=== PATIENT | male | born 1970 | race Two or more races ===

== ENCOUNTER 2020-06-18 15:35 | Inpatient (IN) | payer MEDICAID ==
[~2020-06-18] VITALS: Ht 162.6 cm; Wt 61.2 kg
[2020-06-18] VITALS (8 sets, daily range): BP systolic 98–143; BP diastolic 67–74
--- NOTE | 2020-06-18 16:00 | NUR ---
ED Nurse Note: Patient was wheeled from waiting room due to severe resp disstress. Patient presented with resp rate 54, O2 sat 25, HR 143, diaphoretic. Patient was placed on 15L via NRB mask O2 sat went up to 75%. Patient was connected to monitor, ER MD at bed side
--- NOTE | 2020-06-18 16:05 | NUR ---
ED Nurse Note: Corina BOSS RN started IV line on right AC 20ga, blood collected sent to lab.
--- NOTE | 2020-06-18 16:06 | NUR ---
ED Nurse Note: Patient was placed at prone position, still desatting.
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
[2020-06-18] MEDS ORDERED: Azithromycin 500 MG in NS 275 ML IVPB ONE (16:30)
[2020-06-18] MEDS ORDERED: cefTRIAXone 1 GM in NS 55 ML IV ONE (16:30)
[2020-06-18] MEDS ORDERED: Acetaminophen 500mg (ES) tab ORAL ONE (16:30)
--- NOTE | 2020-06-18 16:30 | NUR ---
ED Nurse Note: secomd IV line was established on left AC 18 ga
[2020-06-18 16:49] LABS: HEMATOCRIT 41.9 % (42.0-52.0); HEMOGLOBIN 14.9 G/DL (14.2-18.0); MEAN CORPUSCULAR VOLUME 87 FL (80-99); PLATELET COUNT 217 K/UL (150-450); RED BLOOD COUNT 4.83 M/UL (4.70-6.10); RED CELL DISTRIBUTION WIDTH 13.7 % (11.6-14.8); WHITE BLOOD COUNT 12.5 K/UL (4.8-10.8)
--- NOTE | 2020-06-18 16:55 | NUR ---
ED Nurse Note: Patient was placed on BIPAP.
[2020-06-18 17:07] LABS: INR 1.2 (0.9-1.1); PARTIAL THROMBOPLASTIN TIME 28 SEC (23-33)
--- NOTE | 2020-06-18 17:13 | Diagnostic Imaging Report ---
Indication: Dyspnea Technique: One view of the chest Comparison: none Findings: There is generalized bilateral interstitial and hazy airspace opacity. There is more dense consolidation in the right upper lobe. The heart size is borderline enlarged. The pleural spaces are clear. Impression: Bilateral interstitial and hazy airspace opacities, with right upper lobe denser consolidation. Findings may represent bilateral pulmonary edema versus bilateral infiltrates. Correlate with clinical findings
[2020-06-18 17:14] LABS: ANION GAP 22 mmol/L (5-15); BLOOD UREA NITROGEN 15 mg/dL (7-18); CALCIUM 8.4 MG/DL (8.5-10.1); CARBON DIOXIDE 18 MMOL/L (21-32); CHLORIDE 93 MMOL/L (98-107); CREATININE 1.6 MG/DL (0.55-1.30); SODIUM 133 MMOL/L (136-145)
[2020-06-18 17:32] LABS: ALANINE AMINOTRANSFERASE 68 U/L (12-78); ALBUMIN 2.5 G/DL (3.4-5.0); ALBUMIN/GLOBULIN RATIO 0.4 (1.0-2.7); ALKALINE PHOSPHATASE 113 U/L (46-116); ASPARTATE AMINO TRANSFERASE 57 U/L (15-37); BILIRUBIN,TOTAL 0.5 MG/DL (0.2-1.0); CREATINE KINASE 225 U/L (26-308); LACTATE DEHYDROGENASE 983 U/L (81-234)
[2020-06-18 17:36] LABS: FERRITIN 2037 NG/ML (8-388)
[2020-06-18] MEDS ORDERED: Heparin 5000 units/ml inj IV ONE (18:30)
[2020-06-18] MEDS ORDERED: Heparin 25,000u/D5W 500ml 500 ML IV SCH (18:30)
[2020-06-18] MEDS ORDERED: Omnipaque 350 100ml vial INJ PRN (18:30)
--- NOTE | 2020-06-18 19:17 | NUR ---
HAND-OFF: Report given to TIMOTHY Mcleod.
--- NOTE | 2020-06-18 19:20 | NUR ---
ED Nurse Note: Report received from TIMOTHY Berry. Patient taken to CT with lora sheriff RT and RN monitoring patient. CT was completed without complication. Patient is tachypneic with extensive accessory muscle use. He is awake and alert and able to respond to questions. He remains on bipap. MD aware of respiratory status
--- NOTE | 2020-06-18 19:45 | Diagnostic Imaging Report ---
EXAM: CT Angiography Chest With Intravenous Contrast CLINICAL HISTORY: PE TECHNIQUE: Axial computed tomographic angiography images of the chest with intravenous contrast. CTDI is 36.4 mGy and DLP is 253.0 mGy-cm. One or more of the following dose reduction techniques were used: automated exposure control, adjustment of the mA and/or kV according to patient size, use of iterative reconstruction technique. MIP reconstructed images were created and reviewed. COMPARISON: 06/18/2020 FINDINGS: Pulmonary arteries: Small filling defect in the subsegmental branch of the right lower lobe. Aorta: No thoracic aortic aneurysm. Lungs: Extensive multifocal groundglass opacities throughout the lungs. Pleural space: No pneumothorax. No effusion. Heart: Mild cardiomegaly. No pericardial effusion. Bones/joints: No acute fracture or dislocation. Soft tissues: Unremarkable. Lymph nodes: Prominent mediastinal and hilar lymph nodes, likely reactive. IMPRESSION: 1. Multifocal groundglass opacities consistent with COVID. 2. Small pulmonary embolism in the subsegmental branch of the right lower lobe. 3. Right heart enlargement and flattening of the interventricular septum. Cannot exclude right heart strain or baseline right heart failure. <MYCVCSECTION> Communications: 06/18/20 19:46 Call Doctor Regarding Above results, called DR AVINA on 06/18 19:46 (-08:00)
[2020-06-18] MEDS ORDERED: Aspirin Baby 81mg ORAL STA (20:26)
--- NOTE | 2020-06-18 20:30 | NUR ---
ED Nurse Note: Patient is in bed, no change in condition. No pain noted. HR remains tachy and breathing rate is elevated. ERMD aware.
--- NOTE | 2020-06-18 21:00 | NUR ---
ED Nurse Note: Report given to TIMOTHY Martinez. Patient is awake and alert, verbally responsive. Patient is aware of transfer to ICU. Vital signs documented in spreadsheet.
--- NOTE | 2020-06-18 21:12 | NUR ---
NURSE NOTES: Pt transported from ED to ICU via gurney without incident. Belongings verified at bedside, including $87 chavez in which the pt refuses to have placed in the safe at this time. Received patient and report from TIMOTHY Mcleod. Patient is observed resting in bed and remains alert and oriented x4. Pt denies pain at this time. Pt is currently on Bipap, settings 15/5 FiO2 80% with an O2 saturation of 90% at this time. Pt remains tachypneic with a RR of 34-40 noted and SOB with accessory muscle use. Bilateral lower lobe breath sounds noted to be diminished upon auscultation R side more diminished than L, with rhonchi noted in bilateral upper lobes. Pt noted to be ST on tele monitor with a HR of 122, BP remains stable at this time. L AC 18g and R AC 20g IV Catheters noted which remain asymptomatic, intact and patent. Heparin is currently infusing at 18 u/kg/hr as ordered. No s/sx of active bleeding noted at this time. Active bowel sounds noted in all four quadrants; abdomen remains round, soft and nontender. Pt medical history and diagnostics reviewed at bedside. Skin remains intact. Fall, Aspiration and Skin precautions observed. Pt repositioned for comfort and safety. Pt remains resting in bed; Bed remains in the lowest position with the safety wheels engaged, call light within reach, side rails up x3 and bed alarm activated. Will call primary physician for admission orders. Will continue to monitor.
--- NOTE | 2020-06-18 21:25 | NUR ---
ED Nurse Note: Endorsed to PROCESS CONSULTANT that patient has not urinated yet and urine sample will need to be sent to lab.
--- NOTE | 2020-06-18 21:25 | NUR ---
ED Nurse Note: Patient taken to ICU unit at this time as ordered by MD. Patient is awake and alert, verbally responsive and remains on bipap. He remains tachypneic, see vitals flow sheet. Patient taken to unit via gurney by RN and RT. Patient took all belongings with him to the floor. Heparin infusing as ordered at time of transfer. IVs are intact. Patient transferred to ICU bed without complication and continuinity of care handed off to CASE MANAGEMENT SPECIALIST.
--- NOTE | 2020-06-18 21:33 | NUR ---
NURSE NOTES: Consulted with Dr Reyes regarding current pt condition and plan of care. Admission orders obtained including continue Heparin gtt from ED. Will carry out orders and continue to monitor.
--- NOTE | 2020-06-18 21:43 | NUR ---
NURSE NOTES: Called pharmacy and spoke with Chrystal regarding heparin drip. Upon weighing pt on bed scale a weight discrepancy was noted. Per Chrystal continue with current rate and adjust after next ptt. Will continue to infuse Heparin at current rate. Timed ptt already scheduled per order.
[2020-06-18] MEDS: Heparin 25,000u/D5W 500ml 500 ML IV SCH (22:26)
--- NOTE | 2020-06-18 23:00 | NUR ---
NURSE NOTES: Bedside physical assessment performed. Pt appears to continue to Bipap settings, pt remains SOB and tachypneic. HR and BP remains stable. Physical status remains consistent with previous assessment. Heparin continue to infuse without incident with no s/sx of active bleeding noted. Pt noted to have difficulty tolerating oral liquids. Pt noted to immediately desaturate to 81% with pause of Bipap use for oral medication administration. Fall, Aspiration and Skin precautions observed. Pt remains resting in bed; Bed remains in the lowest position with the safety wheels engaged, call light within reach, side rails up x3 and bed alarm activated. Will continue plan of care. Will continue to monitor.
[2020-06-19] VITALS (24 sets, daily range): BP systolic 95–137; BP diastolic 68–93
--- NOTE | 2020-06-19 01:00 | NUR ---
NURSE NOTES: Timed ptt drawn and submitted to the laboratory for analysis. Will await results and titrate Heparin according to order. Bedside physical assessment performed. Pt appears to continue to Bipap settings, pt remains SOB, but a decrease in accessory muscle use noted. HR and BP remains stable. Physical status remains consistent with previous assessment. Heparin continue to infuse without incident with no s/sx of active bleeding noted. Fall, Aspiration and Skin precautions observed. Pt remains resting in bed; Bed remains in the lowest position with the safety wheels engaged, call light within reach, side rails up x3 and bed alarm activated. Will continue plan of care. Will continue to monitor.
--- NOTE | 2020-06-19 03:00 | NUR ---
NURSE NOTES: ptt noted to he therapeutic, Herparin to continue to infuse at the same rate per order. Scheduled timed ptt per protocol for following morning. Pt noted to be sleeping at this time. Bedside physical assessment performed. Pt appears to continue to Bipap settings, pt remains SOB, but a decrease in accessory muscle use noted. HR and BP remains stable. Physical status remains consistent with previous assessment. Heparin continue to infuse without incident with no s/sx of active bleeding noted. Fall, Aspiration and Skin precautions observed. Pt remains resting in bed; Bed remains in the lowest position with the safety wheels engaged, call light within reach, side rails up x3 and bed alarm activated. Will continue plan of care. Will continue to monitor.
--- NOTE | 2020-06-19 05:00 | NUR ---
NURSE NOTES: Pt noted to be sleeping at this time. Bedside physical assessment performed. Pt noted to desaturated in to mid to low 80s and therefore FiO2 titrated to 90% in order to decrease overall WOB. Pt now noted to be tolerating Bipap settings better and is visibly more comfortably. HR and BP remains stable. Physical status otherwise remains consistent with previous assessment. Heparin continue to infuse without incident with no s/sx of active bleeding noted. Fall, Aspiration and Skin precautions observed. Pt remains resting in bed; Bed remains in the lowest position with the safety wheels engaged, call light within reach, side rails up x3 and bed alarm activated. Will continue plan of care. Will continue to monitor.
[2020-06-19 06:10] LABS: HEMATOCRIT 36.9 % (42.0-52.0); HEMOGLOBIN 12.8 G/DL (14.2-18.0); MEAN CORPUSCULAR VOLUME 90 FL (80-99); PLATELET COUNT 153 K/UL (150-450); RED BLOOD COUNT 4.09 M/UL (4.70-6.10); RED CELL DISTRIBUTION WIDTH 12.3 % (11.6-14.8); WHITE BLOOD COUNT 8.1 K/UL (4.8-10.8)
[2020-06-19 06:23] LABS: ALANINE AMINOTRANSFERASE 55 U/L (12-78); ALBUMIN 1.9 G/DL (3.4-5.0); ALBUMIN/GLOBULIN RATIO 0.4 (1.0-2.7); ALKALINE PHOSPHATASE 86 U/L (46-116); ANION GAP 6 mmol/L (5-15); ASPARTATE AMINO TRANSFERASE 48 U/L (15-37); BILIRUBIN,TOTAL 0.4 MG/DL (0.2-1.0); BLOOD UREA NITROGEN 14 mg/dL (7-18); CALCIUM 7.5 MG/DL (8.5-10.1); CARBON DIOXIDE 25 MMOL/L (21-32); CHLORIDE 107 MMOL/L (98-107); CREATININE 0.7 MG/DL (0.55-1.30); POTASSIUM 3.7 MMOL/L (3.5-5.1); SODIUM 138 MMOL/L (136-145)
--- NOTE | 2020-06-19 07:02 | NUR ---
NURSE HAND-OFF REPORT: Latest Vital Signs: Temperature 98.8 , Pulse 90 , B/P 114 /77 , Respiratory Rate 34 , O2 SAT 97 , Bi-pap, O2 Flow Rate . Vital Sign Comment: EKG Rhythm: Sinus Rhythm Rhythm change?: N MD Notified?: - MD Response: Latest Mcdowell Fall Score: 35 Fall Risk: Medium Risk Safety Measures: Call light Within Reach, Bed Alarm Zone 2, Side Rails Side Rails x2, Bed position Low and Locked. Fall Precautions: Door Sign Patient Fall Education Report given to TIMOTHY Broussard.
--- NOTE | 2020-06-19 08:00 | NUR ---
NURSE NOTES: Pt was assessed after receiving change of shift report from Janusz AGUIRRE. Pt is awake, alert, oriented x4, bilingual Yakut speaking. Currently on Bipap 15/5 FIO2 90%, O2Sat 98%. Bilateral rales on auscultation. Intermittent cough present. Denies any pain/chest discomfort when asked. 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 HR 90 with bounding peripheral pulses. Temp 99F axillary, extremities warm to touch. Pt is maintained on Heparin drip current rate 18units/kg/hour per protocol, last PTT 85, next PTT to be drawn tomorrow AM per protocol/pharmacy. Peripheral IV access is present on Left AC#18G and Right AC#20G, both patent/intact. Uses urinal at bedside, output of dark logan/mildly cloudy urine. Abdomen is round, soft, nontender to touch with hypoactive bowel sounds. HOB at high olivo's, bed locked, in lowest position, three side rails up and call light is placed within easy reach. Will continue to monitor pt and follow plan of care per MD orders and protocol.
[2020-06-19] MEDS: dexAMETHasone 10mg/ml Inj IV SCH (09:15)
--- NOTE | 2020-06-19 10:00 | NUR ---
NURSE NOTES: Urine specimen was collected 0940 and sent to lab per order. Pt was repositioned for comfort. Remains on Heparin drip at 18units/kg/hour. No signs of bleeding noted. Remains on Bipap 15/5, 90% FIO2, with O2Sat 98%. Pt denies any chest discomfort. Head of bed at high fowlers.
[2020-06-19 11:05] LABS: APPEARANCE,URINE CLEAR; BILIRUBIN, URINE NEGATIVE (NEGATIVE); GLUCOSE, URINE (UA) 1+ (NEGATIVE); KETONES,URINE 1+ (NEGATIVE); LEUKOCYTE ESTERASE ,URINE 1+ (NEGATIVE); NITRITE,URINE NEGATIVE (NEGATIVE); PH,URINE 6.5 (4.5-8.0); PROTEIN,URINE 3+ (NEGATIVE); UROBILINOGEN,URINE 4 MG/DL (0.0-1.0)
[2020-06-19 11:10] LABS: COLOR,URINE YELLOW
--- NOTE | 2020-06-19 11:58 | NUR ---
NURSE NOTES: Pt's contacted the nurse's station to inquire about update on current status. Pt remains with stable VS, while maintained on Bipap 15/5, FIO2 90%, O2Sat at 98%. No signs of bleeding noted while pt remains on Heparin drip at 18unit/kg/hour.
--- NOTE | 2020-06-19 13:00 | NUR ---
NURSE NOTES: Dr Reyes is at the nurse's station. Updated on pt's current status and reported AM ABG results. Order noted for repeat ABGs, BMP/CBC for tomorrow AM, and Protonix added for GI prophylaxis. Per MD, plan to start pt on Remdesivir. MD notified regarding pt desaturating when Bipap is off face even for a brief moment. Per MD, okay to hold PO diet for a few days while pt is maintained on Bipap. Addendum: 06/19/20 at 1517 by EFRAIN EASTMAN RN MD also notified of Troponin trending up. No additional orders at this time.
--- NOTE | 2020-06-19 14:15 | History and Physical Report ---
DATE OF ADMISSION: 06/18/2020 HISTORY OF PRESENT ILLNESS: This is a 49-year-old male who was admitted to the hospital overnight with shortness of breath. He was confirmed and found to have COVID-19 pneumonia. The patient states he has multiple family members who are also unwell. His symptoms began approximately five days ago. Overnight, the patient has been on a BiPAP. He has been worked up. He has been confirmed to have COVID-19 pneumonia based on microbiological testing with a rapid COVID-19 antigen positivity and a chest x-ray which has shown bilateral confluent infiltrates suspicious for pneumonic process. The patient also underwent a CT pulmonary angiogram, which showed a small pulmonary embolism in the segmental branch of the right lower lobe and multifocal opacities. PAST MEDICAL HISTORY: The patient denies any previous medical history or tobacco usage. PREVIOUS SURGERIES: None. 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 He was born in [place]. REVIEW OF SYSTEMS: Denies any headaches, hematemesis, melena, hematochezia, night sweats, or weight loss. PHYSICAL EXAMINATION: VITAL SIGNS: Blood pressure is 120/70, heart rate is 84, respirations are 20. O2 saturation 97% on BiPAP 18/5, 90% FiO2. GENERAL: Reveals a 49-year-old male. At this time, he is on a BiPAP. HEENT: Otherwise unremarkable. CHEST: Shows bilateral rhonchi. ABDOMEN: Soft. EXTREMITIES: There is no edema. LABORATORY DATA: His laboratory testing shows normal CBC with a hemoglobin of 12.8. Chemistry is notable for glucose 138. Lactic acid 13, now 3.4. AST 48. Troponin 1.3, followed by 1.4. Coags show high D-dimer of 125. Urinalysis negative. IMPRESSION: 1. COVID-19 pneumonia. 2. Respiratory failure. 3. Pulmonary embolism. 4. Troponin leak. DISCUSSION: We will admit to the hospital, start Decadron, start heparin infusion, broad-spectrum antibiotics. We will consult ID for possible remdesivir usage. He may need to be intubated. We will maintain a BiPAP for now. His ABGs have actually shown improvement with pH now being 7.50, pCO2 29, and pO2 63 on BiPAP discussed above. Gurdeep Reyes M.D. DR: CORBY JOB#: [id number] CC:
--- NOTE | 2020-06-19 14:40 | NUR ---
NURSE NOTES: New Heparin bag was removed from the pyxis to replace current bag that is now empty. Contacted pharmacy and notified Andrey/pharmacist, awaiting for new label from pharmacy to be scanned. In the meantime, new bag has been started at 1440 and is infusing at same rate. No signs of bleeding noted. VS remain stable. Pt denies any chest discomfort, maintained on Bipap 15/5, FIO2 90%, O2Sat at 98%.
--- NOTE | 2020-06-19 15:15 | Consultation ---
DATE OF CONSULTATION: 06/19/2020 INFECTIOUS DISEASE CONSULTATION CONSULTING PHYSICIAN: Arturo Dudley MD. PRIMARY ATTENDING PHYSICIAN: Gurdeep Reyes MD. REASON FOR CONSULTATION: COVID-19 disease and sepsis. HISTORY OF PRESENT ILLNESS: The patient is a 49-year-old male admitted yesterday from home complaining of shortness of breath. The patient feeling sick since four days before admission. In the ER, he was tachypneic with respiratory rate of 34 that subsequently increased to 46, was tachycardic with heart rate of 143, had leukocytosis of 12.5, admitted to ICU and started on BiPAP. PAST MEDICAL HISTORY: Insignificant. ALLERGIES: No known drug allergies. MEDICATIONS: Getting ceftriaxone azithromycin, dexamethasone, Zofran, heparin IV. SOCIAL HISTORY: . No history of smoking. REVIEW OF SYSTEMS: Limited. PHYSICAL EXAMINATION: VITAL SIGNS: Temperature is 99, current pulse is 98, respiratory rate is 35. HEAD AND NECK: Gabbs conjunctivae. HEART: Normal rate. LUNGS: On BiPAP ABDOMEN: Soft. EXTREMITIES: No edema. LABORATORY AND DIAGNOSTIC DATA: WBC today is 8.1, hemoglobin 12.8, hematocrit 36.9, and platelets 153,000. Sodium 138, potassium 3.7, chloride 107, bicarb 25, BUN 14, creatinine 0.7. Glucose 138. Lactic acid was 13.2 at the time of admission, subsequently decreased to 3.4. Troponin is elevated, peak level is 1.466. Blood gas showed pH of 7.507, pCO2 of 29.7, pO2 of 63.5, O2 saturation 92.9. CT angiogram of chest showed multifocal ground-glass opacities consistent with COVID. A small pulmonary emboli in the subsegmental branch of right lower lobe, right heart enlargement and flattening of the intraventricular septum. Cannot exclude right heart strain or baseline right heart failure. IMPRESSION: 1. Sepsis with tachycardia, tachypnea and leukocytosis. 2. COVID-19 pneumonia. 3. Pulmonary emboli. 4. Hypoxic respiratory failure, acidosis. 5. Elevated troponin. RECOMMENDATION: We will continue dexamethasone, ceftriaxone, and Zithromax. We will add remdesivir. We will follow up the cultures. At the end of my exam, I thank Dr. Reyes for involving me in the care of this patient. Arturo Dudley M.D. DR: ROSIE JOB#: [id number] CC:
[2020-06-19] MEDS ORDERED: Loading Dose:Remdesivir 200mg/NS 210ml IV SCH ×2 (16:00)
[2020-06-19] MEDS: Azithromycin 500 MG in D5W 275 ML IV SCH (16:45)
[2020-06-19] MEDS: Heparin 25,000u/D5W 500ml 500 ML IV SCH (16:46)
--- NOTE | 2020-06-19 18:00 | NUR ---
NURSE NOTES: Pt was repositioned for comfort. VS remain stable while pt is maintained on Bipap 15/5, FIO2 90%. Denies any chest pain or discomfort at this time. Pt remains on Heparin drip at 18units/kg/hour with no signs of bleeding.
[2020-06-19] MEDS: cefTRIAXone 1 GM in D5W 55 ML IVPB SCH (18:34)
--- NOTE | 2020-06-19 19:10 | NUR ---
NURSE NOTES: Received patient and report from TIMOTHY Broussard. Patient is observed resting in bed and remains alert and oriented x4. Pt denies pain at this time. Pt is currently on Bipap, settings 15/5 FiO2 90% with an O2 saturation of 97% at this time. Pt remains tachypneic with a RR of 34-40 noted and SOB with exertion. Bilateral lower lobe breath sounds noted to be diminished upon auscultation R side more diminished than L, with rhonchi noted in bilateral upper lobes. Pt noted to be SR on tele monitor with a HR of 71, BP remains stable at this time. L AC 18g and R AC 20g IV Catheters noted which remain asymptomatic, intact and patent. Heparin is currently infusing at 18 u/kg/hr as ordered. No s/sx of active bleeding noted at this time. Active bowel sounds noted in all four quadrants; abdomen remains round, soft and nontender. Diagnostics reviewed at bedside. Skin remains intact. Fall, Aspiration and Skin precautions observed. Pt repositioned for comfort and safety. Pt remains resting in bed; Bed remains in the lowest position with the safety wheels engaged, call light within reach, side rails up x3 and bed alarm activated. Will continue to monitor.Will continue plan of care.
--- NOTE | 2020-06-19 19:21 | NUR ---
NURSE HAND-OFF REPORT: Latest Vital Signs: Temperature 98.4 , Pulse 77 , B/P 112 /74 , Respiratory Rate 33 , O2 SAT 95 , Bi-pap 15/5 FIO2 90%. Vital Sign Comment: Remains on Heparin drip at 18units/kg/hour. No signs of bleeding noted. Pt denies any chest pain or discomfort at this time. EKG Rhythm: Sinus Rhythm Rhythm change?: N MD Notified?: - MD Response: Latest Mcdowell Fall Score: 35 Fall Risk: Medium Risk Safety Measures: Call light Within Reach, Bed Alarm Zone 1, Side Rails Side Rails x2, Bed position Low and Locked. Fall Precautions: Yellow Socks Yellow Gown Door Sign Patient Fall Education Report given to Janusz AGUIRRE. Endorsed plan of care.
--- NOTE | 2020-06-19 21:00 | NUR ---
NURSE NOTES: Pt assisted with a bed bath, oral care and linen change. Pt appears to continue to tolerate current Bipap settings well and reports, "it feels easier to breathe." Pt denies pain at this time. Physical status remains consistent with previous assessment. Heparin continue to infuse at 18 u/kg/hr as ordered without incident. Pt remains free from s/sx of active bleeding at this time. Fall, Aspiration and Skin precautions observed. Pt remains resting in bed; Bed remains in the lowest position with the safety wheels engaged, call light within reach, side rails up x3 and bed alarm activated. Will continue plan of care. Will continue to monitor.
--- NOTE | 2020-06-19 23:00 | NUR ---
NURSE NOTES: Pt noted to be sleeping comfortably at this time. Bedside physical assessment performed. Pt appears to continue to tolerate current Bipap settings well and remains free from s/sx of acute distress. HR and BP remains stable. Physical status remains consistent with previous assessment. Heparin remains infusing, pt remains free from s/sx of active bleeding. Will continue to assess pt for restraint removal criteria. No adverse events. Fall, Aspiration and Skin precautions observed. Pt remains resting in bed; Bed remains in the lowest position with the safety wheels engaged, call light within reach, side rails up x3 and bed alarm activated. Will continue plan of care. Will continue to monitor.
[2020-06-20] VITALS (24 sets, daily range): BP systolic 124–154; BP diastolic 74–90
--- NOTE | 2020-06-20 01:00 | NUR ---
NURSE NOTES: Pt remains sleeping comfortably at this time. Pt remains clean and dry. Bedside physical assessment performed and pt status remains consistent with previous physical assessment. Fall, Aspiration and Skin precautions observed. Pt remains resting in bed; Bed remains in the lowest position with the safety wheels engaged, call light within reach, side rails up x3 and bed alarm activated. Will continue plan of care. Will continue to monitor.
--- NOTE | 2020-06-20 03:00 | NUR ---
NURSE NOTES: Pt noted to be sleeping comfortably at this time. No adverse events. No s/sx of active bleeding noted. Fall, Aspiration and Skin precautions observed. Pt remains resting in bed; Bed remains in the lowest position with the safety wheels engaged, call light within reach, side rails up x3 and bed alarm activated. Will continue plan of care. Will continue to monitor.
--- NOTE | 2020-06-20 04:30 | Consultation ---
DATE OF CONSULTATION: 06/19/2020 CONSULTING PHYSICIAN: Aden Mejias M.D. REQUESTING PHYSICIAN: Gurdeep Reyes M.D. REASON FOR CONSULTATION: Tachycardia and elevated troponin level. HISTORY OF PRESENT ILLNESS: This 49-year-old male who presented to the hospital last night with shortness of breath. He was confirmed to have COVID-19 pneumonia ____ ill and feels that he was infected that way. His symptoms began approximately 4 to 5 days ago and worsened on the night of admission. He was started on BiPAP support. Subsequently, the patient developed tachycardia. He underwent a CT pulmonary angiogram that revealed a small pulmonary embolism . I have been asked to assist with cardiovascular care. PAST MEDICAL HISTORY: Unremarkable. ALLERGIES: None known. MEDICATIONS: None. FAMILY HISTORY: Noncontributory. SOCIAL HISTORY: Negative for smoking, alcohol, or substance abuse. REVIEW OF SYSTEMS: No history of hypertension, diabetes mellitus, seizures, or strokes. No history of asthma or abnormal blood clotting in the past. PHYSICAL EXAMINATION: VITAL SIGNS: Blood pressure 120/70, pulse 84, respirations 20, and afebrile. HEENT: Conjunctivae are pink. Oropharynx clear. NECK: Supple. There is slight accessory muscle use. LUNGS: Bilateral rhonchi. CARDIAC: Regular rhythm. Rapid rate. Normal S1 and S2 with a fourth heart sound. ABDOMEN: Soft and nontender. EXTREMITIES: No edema. LABORATORY DATA: D-dimer 125. Lactic acid 13. Troponin 1.3, repeated 1.4. Electrocardiogram revealed sinus tachycardia with no acute abnormalities. IMPRESSION: 1. COVID-19 pneumonia. 2. Acute pulmonary embolism. 3. Hypercoagulability. 4. Acute myocardial ischemia and possible oep-[id number] myocardial infarction, possibly due to acute right heart strain. 5. Secondary sinus tachycardia. 6. Hypoxia. PLAN: 1. Full anticoagulation. 2. Intravenous steroids. 3. Continues cardiac monitoring. 4. Low-dose aspirin. 5. Echocardiogram. 6. Consideration for beta-birdie therapy to follow based on clinical course. Aden Mejias M.D. DR: JESUS JOB#: [id number] CC:
[2020-06-20 04:55] LABS: HEMATOCRIT 35.7 % (42.0-52.0); HEMOGLOBIN 12.8 G/DL (14.2-18.0); MEAN CORPUSCULAR VOLUME 87 FL (80-99); PLATELET COUNT 191 K/UL (150-450); RED BLOOD COUNT 4.11 M/UL (4.70-6.10); RED CELL DISTRIBUTION WIDTH 12.3 % (11.6-14.8); WHITE BLOOD COUNT 6.6 K/UL (4.8-10.8)
--- NOTE | 2020-06-20 05:00 | NUR ---
NURSE NOTES: Specimens collected for morning lab orders without incident. Samples submitted to laboratory for analysis. Bedside physical assessment performed. No adverse events. Heparin continues to infuse without incident and pt remains free from s/sx of active bleeding. Fall, Aspiration and Skin precautions observed. Pt remains resting in bed; Bed remains in the lowest position with the safety wheels engaged, call light within reach, side rails up x3 and bed alarm activated. Will continue plan of care. Will continue to monitor.
[2020-06-20 05:35] LABS: ALANINE AMINOTRANSFERASE 72 U/L (12-78); ALBUMIN 1.7 G/DL (3.4-5.0); ALBUMIN/GLOBULIN RATIO 0.3 (1.0-2.7); ALKALINE PHOSPHATASE 90 U/L (46-116); ANION GAP 6 mmol/L (5-15); ASPARTATE AMINO TRANSFERASE 58 U/L (15-37); BILIRUBIN,DIRECT < 0.1 MG/DL (0.0-0.3); BILIRUBIN,TOTAL 0.3 MG/DL (0.2-1.0); BLOOD UREA NITROGEN 17 mg/dL (7-18); CALCIUM 7.2 MG/DL (8.5-10.1); CARBON DIOXIDE 28 MMOL/L (21-32); CHLORIDE 107 MMOL/L (98-107); CREATININE 0.7 MG/DL (0.55-1.30); POTASSIUM 3.7 MMOL/L (3.5-5.1); SODIUM 141 MMOL/L (136-145)
[2020-06-20] MEDS ORDERED: Heparin 5000 units/ml inj IV SCH (05:45)
--- NOTE | 2020-06-20 06:00 | NUR ---
NURSE NOTES: Spoke with Janice the pharmacist at [facility] regarding pt weight calculation being used for Heparin drip. Per Janice continue to infuse heparin off of the previous weight but bolus to be calculated using todays weight. Pt assessed for s/sx of active bleedin, none noted. Bolus administered as ordered and Heparin rate titrated per order without incident. Pt continues to deny pain and states that he feels as though it is easier to breathe. Fall, Aspiration and Skin precautions observed. Pt remains resting in bed; Bed remains in the lowest position with the safety wheels engaged, call light within reach, side rails up x3 and bed alarm activated. Will continue plan of care. Will continue to monitor.
[2020-06-20] MEDS: Heparin 25,000u/D5W 500ml 500 ML IV SCH ×2 (06:16→09:33)
--- NOTE | 2020-06-20 08:00 | NUR ---
NURSE NOTES: Pt was assessed after receiving change of shift report from Janusz AGUIRRE. Pt is awake, alert, oriented x4, bilingual Kinyarwanda speaking. Currently on Bipap 15/5 FIO2 90%, O2Sat 98%. Bilateral rales on auscultation. Intermittent cough present. Denies any pain/chest discomfort when asked. 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 HR 90 with bounding peripheral pulses. Temp 99F axillary, extremities warm to touch. Pt is maintained on Heparin drip current rate 22units/kg/hour per protocol, last PTT 36, next PTT to be drawn timed at 1217 this afternoon per protocol/pharmacy. Peripheral IV access is present on Left AC#18G and Right AC#20G, both patent/intact. Uses urinal at bedside, output of dark logan/mildly cloudy urine. Abdomen is round, soft, nontender to touch with hypoactive bowel sounds. HOB at high olivo's, bed locked, in lowest position, three side rails up and call light is placed within easy reach. Will continue to monitor pt and follow plan of care per MD orders and protocol.
--- NOTE | 2020-06-20 08:30 | Infectious Diseases Prog Note ---
Assessment/Plan Assessment/Plan IMPRESSION: 1. Sepsis with tachycardia, tachypnea and leukocytosis. 2. COVID-19 pneumonia. 3. Pulmonary emboli. 4. Hypoxic respiratory failure, acidosis. 5. Elevated troponin. RECOMMENDATION: We will continue dexamethasone, ceftriaxone, and Zithromax & remdesivir. Subjective ROS Limited/Unobtainable: Yes Allergies: Coded Allergies: No Known Allergies (Unverified , 06/18/20) Objective Last 24 Hour Vital Signs Date Time Temp Pulse Resp B/P (MAP) Pulse Ox O2 Delivery O2 Flow Rate FiO2 06/20/20 07:00 61 22 134/79 (97) 97 06/20/20 06:55 71 24 98 90 06/20/20 06:00 62 23 135/82 (99) 99 06/20/20 05:00 62 26 136/83 (100) 98 06/20/20 04:12 65 06/20/20 04:00 99.0 60 25 137/80 (99) 98 06/20/20 04:00 Bi-pap Bi-pap Bi-pap 06/20/20 03:00 67 27 130/81 (97) 100 06/20/20 02:13 67 29 96 90 06/20/20 02:00 73 30 136/82 (100) 95 06/20/20 01:00 74 30 129/80 (96) 91 06/20/20 00:00 97.7 62 23 124/79 (94) 98 06/20/20 00:00 Bi-pap Bi-pap Bi-pap 06/19/20 23:44 63 06/19/20 23:00 63 25 121/81 (94) 99 06/19/20 22:13 62 31 98 90 06/19/20 22:00 67 26 118/75 (89) 98 06/19/20 21:00 70 29 117/75 (89) 99 06/19/20 20:00 Bi-pap Bi-pap Bi-pap 06/19/20 20:00 98.2 75 32 121/77 (92) 98 06/19/20 20:00 90 06/19/20 19:25 75 06/19/20 19:15 71 28 98 90 06/19/20 19:00 77 33 112/74 (87) 95 06/19/20 18:00 80 33 114/77 (89) 95 06/19/20 17:00 98.4 84 27 128/88 (101) 99 06/19/20 16:00 Bi-pap Bi-pap Bi-pap 06/19/20 16:00 79 29 107/71 (83) 100 06/19/20 16:00 79 06/19/20 15:05 85 33 98 90 06/19/20 15:00 85 29 128/85 (99) 100 06/19/20 14:00 88 32 120/74 (89) 99 06/19/20 13:00 95 37 121/78 (92) 100 06/19/20 12:00 98 06/19/20 12:00 Bi-pap Bi-pap Bi-pap 06/19/20 12:00 99.9 99 35 137/93 (108) 95 06/19/20 11:21 88 35 97 90 06/19/20 11:00 93 36 120/77 (91) 99 06/19/20 10:00 92 33 112/73 (86) 96 06/19/20 09:00 91 34 125/82 (96) 95 Height (Feet): 5 Height (Inches): 4.00 Weight (Pounds): 146 HEENT: mucous membranes moist Respiratory/Chest: other - on BIPAP Cardiovascular: normal rate Abdomen: soft, non tender Extremities: no edema Neurologic/Psychiatric: other - sleeping Microbiology Date/Time Source Procedure Growth Status 06/18/20 16:10 Nasopharynx SARS-CoV-2 RdRp Gene Assay - Final Complete Laboratory Tests Test 06/19/20 08:38 06/19/20 12:05 06/19/20 20:15 06/20/20 04:20 Arterial Blood pH 7.507 (7.350-7.450) Arterial Blood Partial Pressure CO2 29.7 mmHg (35.0-45.0) L Arterial Blood Partial Pressure O2 63.5 mmHg (75.0-100.0) L Arterial Blood HCO3 23.0 mmol/L (22.0-26.0) Arterial Blood Oxygen Saturation 92.9 % (95-100) L Arterial Blood Base Excess 0.9 (-2-2) Roshan Test Positive Troponin I 1.466 ng/mL (0.000-0.056) 0.487 ng/mL (0.000-0.056) White Blood Count 6.6 K/UL (4.8-10.8) Red Blood Count 4.11 M/UL (4.70-6.10) L Hemoglobin 12.8 G/DL (14.2-18.0) L Hematocrit 35.7 % (42.0-52.0) L Mean Corpuscular Volume 87 FL (80-99) Mean Corpuscular Hemoglobin 31.0 PG (27.0-31.0) Mean Corpuscular Hemoglobin Concent 35.7 G/DL (32.0-36.0) Red Cell Distribution Width 12.3 % (11.6-14.8) Platelet Count 191 K/UL (150-450) Mean Platelet Volume 8.7 FL (6.5-10.1) Neutrophils (%) (Auto) % (45.0-75.0) Lymphocytes (%) (Auto) % (20.0-45.0) Monocytes (%) (Auto) % (1.0-10.0) Eosinophils (%) (Auto) % (0.0-3.0) Basophils (%) (Auto) % (0.0-2.0) Differential Total Cells Counted 100 Neutrophils % (Manual) 91 % (45-75) H Lymphocytes % (Manual) 6 % (20-45) L Monocytes % (Manual) 3 % (1-10) Eosinophils % (Manual) 0 % (0-3) Basophils % (Manual) 0 % (0-2) Band Neutrophils 0 % (0-8) Platelet Estimate Adequate Platelet Morphology Normal Red Blood Cell Morphology Normal Activated Partial Thromboplast Time 46 SEC (23-33) H Sodium Level 141 MMOL/L (136-145) Potassium Level 3.7 MMOL/L (3.5-5.1) Chloride Level 107 MMOL/L (98-107) Carbon Dioxide Level 28 MMOL/L (21-32) Anion Gap 6 mmol/L (5-15) Blood Urea Nitrogen 17 mg/dL (7-18) Creatinine 0.7 MG/DL (0.55-1.30) Estimat Glomerular Filtration Rate > 60 mL/min (>60) Glucose Level 199 MG/DL (74-106) H Calcium Level 7.2 MG/DL (8.5-10.1) L Total Bilirubin 0.3 MG/DL (0.2-1.0) Direct Bilirubin < 0.1 MG/DL (0.0-0.3) Aspartate Amino Transf (AST/SGOT) 58 U/L (15-37) H Alanine Aminotransferase (ALT/SGPT) 72 U/L (12-78) Alkaline Phosphatase 90 U/L (46-116) Total Protein 6.6 G/DL (6.4-8.2) Albumin 1.7 G/DL (3.4-5.0) L Globulin 4.9 g/dL Albumin/Globulin Ratio 0.3 (1.0-2.7) L Test 06/20/20 08:00 Arterial Blood pH 7.508 (7.350-7.450) Arterial Blood Partial Pressure CO2 35.3 mmHg (35.0-45.0) Arterial Blood Partial Pressure O2 87.9 mmHg (75.0-100.0) Arterial Blood HCO3 27.4 mmol/L (22.0-26.0) H Arterial Blood Oxygen Saturation 96.7 % (95-100) Arterial Blood Base Excess 4.5 (-2-2) H Roshan Test Positive Current Medications Medications (Trade) Dose Ordered Sig/Yoselin Route PRN Reason Start Time Stop Time Status Last Admin Dose Admin Acetaminophen (Tylenol) 650 mg Q6H PRN ORAL For Pain 06/18/20 22:00 07/18/20 21:59 Aspirin (ASA) 81 mg DAILY ORAL 06/20/20 09:00 08/04/20 08:59 Azithromycin 500 mg/Dextrose 275 ml @ 275 mls/hr Q24HRS IV 06/19/20 16:00 06/25/20 16:59 06/19/20 16:45 Ceftriaxone Sodium 1 gm/ Dextrose 55 ml @ 110 mls/hr Q24H IVPB 06/19/20 17:00 06/26/20 16:59 06/19/20 18:34 Dexamethasone Sodium Phosphate (Decadron 10mg/ ml Inj) 6 mg DAILY IV 06/19/20 09:00 06/28/20 09:01 06/19/20 09:15 Heparin Sodium/ Dextrose 500 ml @ 31.933 mls/ hr ADJUST PER PROTOCOL IV 06/20/20 05:45 07/20/20 05:44 06/20/20 06:16 Iohexol (Omnipaque 350 100ml) 100 ml NOW PRN INJ Radiology Procedure 06/18/20 18:30 06/20/20 18:29 Ondansetron HCl (Zofran) 4 mg Q6H PRN IVP Nausea & Vomiting 06/18/20 22:00 07/18/20 21:59 Pantoprazole (Protonix) 40 mg DAILY IVP 06/20/20 09:00 07/20/20 08:59 Remdesivir 100 mg/ Sodium Chloride 250 ml @ 250 mls/hr Q24H IV 06/20/20 16:00 06/23/20 16:59 Arturo Dudley MD Jun 20, 2020 08:30
[2020-06-20] MEDS: Pantoprazole Inj IVP SCH (09:05)
[2020-06-20] MEDS: Aspirin Baby 81mg ORAL SCH (09:05)
[2020-06-20] MEDS: dexAMETHasone 10mg/ml Inj IV SCH (09:05)
--- NOTE | 2020-06-20 10:00 | NUR ---
NURSE NOTES: AM meds were administered. Pt remains on Bipap 15/5, which was removed from face momentarily for pt to swallow PO Aspirin. ABGs were drawn this morning. Dr. Reyes is at the nurse's station and updated on pt's current status, including ABG results. Per MD, "switch to nonrebreather as tolerated by pt, and if pt continues to tolerate nonrebreather okay to consume clear/liquid diet as tolerated".
--- NOTE | 2020-06-20 10:15 | NUR ---
NURSE NOTES: RT at pt's bedside, switched Bipap to nonrebreather. VS remains stable with O2Sat 98%.
--- NOTE | 2020-06-20 12:17 | NUR ---
NURSE NOTES: surveying or spatial science technician at bedside drawing blood for timed PTT labdraw.
--- NOTE | 2020-06-20 13:00 | NUR ---
NURSE NOTES: Heparin drip is maintained at same rate 22units/kg/hour per last PTT drawn at 1217 this afternoon, which remains within therapeutic range per protocol. Will repeat PTT/lab draw timed tomorrow AM per protocol. VS remain stable. No signs of bleeding noted at this time.
--- NOTE | 2020-06-20 13:36 | Pulmonology Progress Note ---
Subjective ROS Limited/Unobtainable: Yes Interval Events: Looking and feeling better. On BiPAP. Constitutional: Reports: no symptoms HEENT: Repors: no symptoms Respiratory: Reports: no symptoms Cardiovascular: Reports: no symptoms Gastrointestinal/Abdominal: Reports: no symptoms Allergies: Coded Allergies: No Known Allergies (Unverified , 06/18/20) Objective Last 24 Hour Vital Signs Date Time Temp Pulse Resp B/P (MAP) Pulse Ox O2 Delivery O2 Flow Rate FiO2 06/20/20 12:00 Non-Rebreather Bi-pap Non-Rebreather 06/20/20 12:00 57 06/20/20 11:07 96 06/20/20 11:00 66 27 131/77 (95) 91 06/20/20 10:00 76 25 148/80 (102) 99 06/20/20 09:00 72 28 133/79 (97) 94 06/20/20 08:00 98.4 66 21 148/89 (108) 98 06/20/20 08:00 62 06/20/20 08:00 Bi-pap Bi-pap Bi-pap 06/20/20 07:00 61 22 134/79 (97) 97 06/20/20 06:55 71 24 98 90 06/20/20 06:00 62 23 135/82 (99) 99 06/20/20 05:00 62 26 136/83 (100) 98 06/20/20 04:12 65 06/20/20 04:00 99.0 60 25 137/80 (99) 98 06/20/20 04:00 Bi-pap Bi-pap Bi-pap 06/20/20 03:00 67 27 130/81 (97) 100 06/20/20 02:13 67 29 96 90 06/20/20 02:00 73 30 136/82 (100) 95 06/20/20 01:00 74 30 129/80 (96) 91 06/20/20 00:00 97.7 62 23 124/79 (94) 98 06/20/20 00:00 Bi-pap Bi-pap Bi-pap 06/19/20 23:44 63 06/19/20 23:00 63 25 121/81 (94) 99 06/19/20 22:13 62 31 98 90 06/19/20 22:00 67 26 118/75 (89) 98 06/19/20 21:00 70 29 117/75 (89) 99 06/19/20 20:00 Bi-pap Bi-pap Bi-pap 06/19/20 20:00 98.2 75 32 121/77 (92) 98 06/19/20 20:00 90 06/19/20 19:25 75 06/19/20 19:15 71 28 98 90 06/19/20 19:00 77 33 112/74 (87) 95 06/19/20 18:00 80 33 114/77 (89) 95 06/19/20 17:00 98.4 84 27 128/88 (101) 99 06/19/20 16:00 Bi-pap Bi-pap Bi-pap 06/19/20 16:00 79 29 107/71 (83) 100 06/19/20 16:00 79 06/19/20 15:05 85 33 98 90 06/19/20 15:00 85 29 128/85 (99) 100 06/19/20 14:00 88 32 120/74 (89) 99 Intake and Output 06/19/20 06/20/20 19:00 07:00 Intake Total 822.647 ml 455.281 ml Output Total 1050 ml 400 ml Balance -227.353 ml 55.281 ml Intake Oral 0 ml 0 ml IV Total 822.647 ml 455.281 ml Output Urine Total 1050 ml 400 ml # Voids 5 1 General Appearance: no acute distress HEENT: normocephalic Respiratory: chest wall non-tender, lungs clear Cardiovascular: normal peripheral pulses Abdomen: normal bowel sounds Extremities: no cyanosis Microbiology Date/Time Source Procedure Growth Status 06/18/20 16:10 Nasopharynx SARS-CoV-2 RdRp Gene Assay - Final Complete 06/18/20 16:10 Blood Blood Culture - Preliminary NO GROWTH AFTER 24 HOURS Resulted 06/18/20 15:55 Blood Blood Culture - Preliminary NO GROWTH AFTER 24 HOURS Resulted Laboratory Tests 06/19/20 20:15: Troponin I 0.487H 06/20/20 04:20: White Blood Count 6.6, Red Blood Count 4.11L, Hemoglobin 12.8L, Hematocrit 35.7L , Mean Corpuscular Volume 87, Mean Corpuscular Hemoglobin 31.0, Mean Corpuscular Hemoglobin Concent 35.7, Red Cell Distribution Width 12.3, Platelet Count 191, Mean Platelet Volume 8.7, Neutrophils (%) (Auto) , Lymphocytes (%) (Auto) , Monocytes (%) (Auto) , Eosinophils (%) (Auto) , Basophils (%) (Auto) , Differential Total Cells Counted 100, Neutrophils % (Manual) 91H, Lymphocytes % (Manual) 6L, Monocytes % (Manual) 3, Eosinophils % (Manual) 0, Basophils % (Manual) 0, Band Neutrophils 0, Platelet Estimate Adequate, Platelet Morphology Normal, Red Blood Cell Morphology Normal, Activated Partial Thromboplast Time 46H, Sodium Level 141, Potassium Level 3.7, Chloride Level 107, Carbon Dioxide Level 28, Anion Gap 6, Blood Urea Nitrogen 17, Creatinine 0.7, Estimat Glomerular Filtration Rate > 60, Glucose Level 199H, Calcium Level 7.2L, Total Bilirubin 0.3, Direct Bilirubin < 0.1, Aspartate Amino Transf (AST/SGOT) 58H, Alanine Aminotransferase (ALT/SGPT) 72, Alkaline Phosphatase 90, Total Protein 6.6, Albumin 1.7L, Globulin 4.9, Albumin/Globulin Ratio 0.3L 06/20/20 08:00: Arterial Blood pH 7.508H, Arterial Blood Partial Pressure CO2 35.3, Arterial Blood Partial Pressure O2 87.9, Arterial Blood HCO3 27.4H, Arterial Blood Oxygen Saturation 96.7, Arterial Blood Base Excess 4.5H, Roshan Test Positive 06/20/20 12:08: Activated Partial Thromboplast Time 78H Current Medications Medications (Trade) Dose Ordered Sig/Yoselin Route PRN Reason Start Time Stop Time Status Last Admin Dose Admin Acetaminophen (Tylenol) 650 mg Q6H PRN ORAL For Pain 06/18/20 22:00 07/18/20 21:59 Aspirin (ASA) 81 mg DAILY ORAL 06/20/20 09:00 08/04/20 08:59 06/20/20 09:05 Azithromycin 500 mg/Dextrose 275 ml @ 275 mls/hr Q24HRS IV 06/19/20 16:00 06/25/20 16:59 06/19/20 16:45 Ceftriaxone Sodium 1 gm/ Dextrose 55 ml @ 110 mls/hr Q24H IVPB 06/19/20 17:00 06/26/20 16:59 06/19/20 18:34 Dexamethasone Sodium Phosphate (Decadron 10mg/ ml Inj) 6 mg DAILY IV 06/19/20 09:00 06/28/20 09:01 06/20/20 09:05 Heparin Sodium/ Dextrose 500 ml @ 31.933 mls/ hr ADJUST PER PROTOCOL IV 06/20/20 05:45 07/20/20 05:44 06/20/20 09:33 Iohexol (Omnipaque 350 100ml) 100 ml NOW PRN INJ Radiology Procedure 06/18/20 18:30 06/20/20 18:29 Ondansetron HCl (Zofran) 4 mg Q6H PRN IVP Nausea & Vomiting 06/18/20 22:00 07/18/20 21:59 Pantoprazole (Protonix) 40 mg DAILY IVP 06/20/20 09:00 07/20/20 08:59 06/20/20 09:05 Remdesivir 100 mg/ Sodium Chloride 250 ml @ 250 mls/hr Q24H IV 06/20/20 16:00 06/23/20 16:59 Assessment/Plan Assessment/Plan IMPRESSION: 1. COVID-19 pneumonia. 2. Respiratory failure. 3. Pulmonary embolism. 4. Troponin leak. DISCUSSION: Continue Decadron, Continue heparin infusion, Continue broad-spectrum antibiotics. Seen by ID for remdesivir. Maintain on BiPAP for now. We will monitor x-ray chest, ABG and labs in a.m. Tea Peterson Omar Syed MD Jun 20, 2020 13:36
--- NOTE | 2020-06-20 14:00 | NUR ---
NURSE NOTES: Pt's contacted the nurse's station to receive update on pt's current status. Pt is tolerating nonrebreather with O2Sat 98%.
[2020-06-20] MEDS: Maintenance Dose:Remdesivir 100mg/NS 230ml x 4 Doses IV SCH ×2 (15:50)
[2020-06-20] MEDS: Azithromycin 500 MG in D5W 275 ML IV SCH (15:51)
--- NOTE | 2020-06-20 16:30 | NUR ---
NURSE NOTES: Pt was assisted with feeding dinner meal. Consumed 100% of dinner meal. Desaturates down to 85% when nonrebreather is removed from face for more than 5 minutes. Pt consumed clear/liquid diet in small intervals/portions. VS remains stable. Now back on nonrebreather continuous, O2Sat at 99%.
[2020-06-20] MEDS: cefTRIAXone 1 GM in D5W 55 ML IVPB SCH (17:27)
--- NOTE | 2020-06-20 18:00 | NUR ---
NURSE NOTES: Pt uses urinal at bedside, output of dark yellow/clear urine. Gown/bed linens were changed. Pt was repositioned for comfort, head of bed maintained elevated from semi to high olivo's position. VS remain stable.
--- NOTE | 2020-06-20 19:15 | NUR ---
NURSE HAND-OFF REPORT: Latest Vital Signs: Temperature 99.2 , Pulse 103 , B/P 137 /77 , Respiratory Rate 29 , O2 SAT 96 , Nonrebreather/100% FIO2. Vital Sign Comment: Remains on Heparin drip at 22units/kg/hour with no signs of bleeding throughout my shift. Next timed PTT to repeat tomorrow AM per protocol. EKG Rhythm: Sinus Rhythm Rhythm change?: N MD Notified?: - MD Response: Latest Mcdowell Fall Score: 35 Fall Risk: Medium Risk Safety Measures: Call light Within Reach, Bed Alarm Zone 2, Side Rails Side Rails x3, Bed position Low and Locked. Fall Precautions: Yellow Socks Yellow Gown Door Sign Patient Fall Education Report given to Cliff AGUIRRE. Endorsed plan of care.
--- NOTE | 2020-06-20 20:00 | NUR ---
NURSE NOTES: Pt was assessed after receiving change of shift report from Aarti AGUIRRE. Pt is awake, alert, oriented x4, bilingual Vincentian speaking. Currently on Nonrebreather mask 15L 100%, O2Sat 98%. Bilateral rales on auscultation. Intermittent cough present. Denies any pain/chest discomfort when asked. NSR on threat monitoring analyst. HR 90 with bounding peripheral pulses. Temp 99F axillary, extremities warm to touch. Pt is maintained on Heparin drip current rate 22units/kg/hour per protocol, . Peripheral IV access is present on Left AC#18G and Right AC#20G, both patent/intact. Uses urinal at bedside, output of dark logan/mildly cloudy urine. Abdomen is round, soft, nontender to touch with hypoactive bowel sounds. HOB at high olivo's, bed locked, in lowest position, three side rails up and call light is placed within easy reach. Will continue to monitor pt and follow plan of care per MD orders and protocol.
[2020-06-21] VITALS (24 sets, daily range): BP systolic 126–157; BP diastolic 69–88
--- NOTE | 2020-06-21 | NUR ---
NURSE NOTES: Patient self repositioned, oral care given. Patient tolerating non-rebreather. Patient desaturated when mask removes. remains AAOX4.
[2020-06-21] MEDS: Heparin 25,000u/D5W 500ml 500 ML IV SCH ×2 (01:29→19:16)
--- NOTE | 2020-06-21 02:00 | NUR ---
NURSE NOTES: Patient sleeping at this time. Vitals are stable, wakes up upon command
--- NOTE | 2020-06-21 04:00 | NUR ---
NURSE NOTES: Labs drawn, remains conscious. AAOX4. remains on non-rebreather 15L. SpO2 remain above 92%. Afebrile. Will continue to monitor
--- NOTE | 2020-06-21 05:00 | Cardiology Progress Note ---
Subjective DATE OF SERVICE: Jun 20, 2020 On non-rebreather mask Labs/ABG noted Monitor: sinus rhythm with rare ectopics Objective Last 24 Hour Vital Signs Date Time Temp Pulse Resp B/P (MAP) Pulse Ox O2 Delivery O2 Flow Rate FiO2 06/21/20 04:00 67 06/21/20 04:00 98.9 70 26 146/79 (101) 94 06/21/20 04:00 Non-Rebreather Non-Rebreather Non-Rebreather 06/21/20 03:00 64 26 149/76 (100) 92 06/21/20 02:00 66 27 150/79 (102) 94 06/21/20 01:57 97 Non-Rebreather 15.0 100 06/21/20 01:00 66 28 141/77 (98) 91 06/21/20 00:00 Non-Rebreather Non-Rebreather Non-Rebreather 06/21/20 00:00 72 06/21/20 00:00 73 29 149/79 (102) 93 06/20/20 23:00 66 24 148/79 (102) 95 06/20/20 22:00 70 26 146/77 (100) 95 06/20/20 21:00 73 31 143/74 (97) 97 06/20/20 20:00 99.2 69 29 137/77 (97) 96 06/20/20 20:00 Non-Rebreather Non-Rebreather Non-Rebreather 06/20/20 20:00 15.0 100 06/20/20 20:00 103 06/20/20 19:00 74 28 135/77 (96) 95 06/20/20 18:00 78 29 135/75 (95) 99 06/20/20 18:00 83 29 135/75 (95) 99 06/20/20 17:00 87 27 131/80 (97) 83 06/20/20 17:00 83 28 131/80 (97) 97 06/20/20 16:00 72 06/20/20 16:00 Non-Rebreather Non-Rebreather Non-Rebreather 06/20/20 16:00 98.0 69 26 144/84 (104) 97 06/20/20 16:00 72 27 144/84 (104) 98 06/20/20 16:00 15.0 100 06/20/20 15:00 65 27 140/76 (97) 97 06/20/20 15:00 70 26 140/76 (97) 97 06/20/20 14:03 95 Non-Rebreather 15.0 100 06/20/20 14:00 71 30 136/90 (105) 96 06/20/20 13:27 95 06/20/20 13:00 70 30 148/77 (100) 98 06/20/20 12:00 72 26 154/90 (111) 98 06/20/20 12:00 Non-Rebreather Non-Rebreather Non-Rebreather 06/20/20 12:00 57 06/20/20 12:00 15.0 100 06/20/20 11:07 96 06/20/20 11:00 66 27 131/77 (95) 91 06/20/20 10:00 76 25 148/80 (102) 99 06/20/20 09:00 72 28 133/79 (97) 94 06/20/20 08:00 90 06/20/20 08:00 98.4 66 21 148/89 (108) 98 06/20/20 08:00 62 06/20/20 08:00 Bi-pap Bi-pap Bi-pap 06/20/20 07:00 61 22 134/79 (97) 97 06/20/20 06:55 71 24 98 90 06/20/20 06:00 62 23 135/82 (99) 99 ROS: unchanged from 06/19/20 HEENT: other - high flow mask RHYTHM: NSR LUNGS: bilat. rhonchi and rales CARDIAC: normal rate, regular rhythm, normal S1 and S2 ABDOMEN: normal bowel sounds, soft, distended EXTREMITIES: normal range of motion, non-tender, trace edema Laboratory Tests Test 06/20/20 08:00 06/20/20 12:08 Arterial Blood pH 7.508 (7.350-7.450) Arterial Blood Partial Pressure CO2 35.3 mmHg (35.0-45.0) Arterial Blood Partial Pressure O2 87.9 mmHg (75.0-100.0) Arterial Blood HCO3 27.4 mmol/L (22.0-26.0) H Arterial Blood Oxygen Saturation 96.7 % (95-100) Arterial Blood Base Excess 4.5 (-2-2) H Roshan Test Positive Activated Partial Thromboplast Time 78 SEC (23-33) H Microbiology Date/Time Source Procedure Growth Status 06/18/20 21:10 Nasal Nares MRSA Culture - Final NO METHICILLIN RESISTANT STAPH AUREUS... Complete 06/18/20 16:10 Nasopharynx SARS-CoV-2 RdRp Gene Assay - Final Complete 06/18/20 16:10 Blood Blood Culture - Preliminary NO GROWTH AFTER 24 HOURS Resulted 06/18/20 15:55 Blood Blood Culture - Preliminary NO GROWTH AFTER 24 HOURS Resulted Assessment/Plan Assessment/Plan COVID 19 PNA Hypoxia Ac pulmonary embolism Acute coronary syndrome Severe protein/calorie malnutrition Steroid induced diabetes mellitus O2 suppl Full anticoagulation Monitor for sustained atrial arrhythmias Replace lytes as needed Insulin cov'g by Aden Meléndez MD Jun 21, 2020 05:00
[2020-06-21 05:25] LABS: HEMATOCRIT 34.5 % (42.0-52.0); HEMOGLOBIN 12.6 G/DL (14.2-18.0); MEAN CORPUSCULAR VOLUME 86 FL (80-99); PLATELET COUNT 221 K/UL (150-450); RED BLOOD COUNT 4.02 M/UL (4.70-6.10); RED CELL DISTRIBUTION WIDTH 12.8 % (11.6-14.8); WHITE BLOOD COUNT 9.9 K/UL (4.8-10.8)
[2020-06-21 05:53] LABS: ALANINE AMINOTRANSFERASE 70 U/L (12-78); ALBUMIN 1.7 G/DL (3.4-5.0); ALBUMIN/GLOBULIN RATIO 0.4 (1.0-2.7); ALKALINE PHOSPHATASE 124 U/L (46-116); ANION GAP 4 mmol/L (5-15); ASPARTATE AMINO TRANSFERASE 57 U/L (15-37); BILIRUBIN,DIRECT < 0.1 MG/DL (0.0-0.3); BILIRUBIN,TOTAL 0.3 MG/DL (0.2-1.0); BLOOD UREA NITROGEN 16 mg/dL (7-18); CALCIUM 7.6 MG/DL (8.5-10.1); CARBON DIOXIDE 28 MMOL/L (21-32); CHLORIDE 106 MMOL/L (98-107); CREATININE 0.6 MG/DL (0.55-1.30); POTASSIUM 3.6 MMOL/L (3.5-5.1); SODIUM 138 MMOL/L (136-145)
--- NOTE | 2020-06-21 06:00 | NUR ---
NURSE NOTES: PTT noted to be within range, next PTT draw 05/23 at 0400, patient will remains at current rate as set per protocol
--- NOTE | 2020-06-21 08:00 | NUR ---
NURSE NOTES: Received report from Cliff AGUIRRE.
[2020-06-21] MEDS: dexAMETHasone 10mg/ml Inj IV SCH (08:24)
[2020-06-21] MEDS: Pantoprazole Inj IVP SCH (08:24)
[2020-06-21] MEDS: Aspirin Baby 81mg ORAL SCH (08:24)
--- NOTE | 2020-06-21 08:44 | NUR ---
NURSE NOTES: Pt. in bed, awake, a/o x 4. No sign of distress. On Non-rebreather mask at 15L. No grimacing noted. IV at left AC #18g and right AC #20g. in placed running Heparin drip at 22u/kg/hr. No active bleeding noted. Set up his breakfast. Pt. eating. Bed in low position, locked. Call light within reach. Will cont. to monitor.
--- NOTE | 2020-06-21 09:47 | Pulmonology Progress Note ---
Subjective ROS Limited/Unobtainable: Yes Interval Events: Looking and feeling better. On NRBM Constitutional: Reports: no symptoms HEENT: Repors: no symptoms Respiratory: Reports: no symptoms Cardiovascular: Reports: no symptoms Gastrointestinal/Abdominal: Reports: no symptoms Allergies: Coded Allergies: No Known Allergies (Unverified , 06/18/20) Objective Last 24 Hour Vital Signs Date Time Temp Pulse Resp B/P (MAP) Pulse Ox O2 Delivery O2 Flow Rate FiO2 06/21/20 08:00 98.4 73 25 152/79 (103) 98 06/21/20 07:00 72 24 136/87 (103) 98 06/21/20 06:00 64 26 154/78 (103) 95 06/21/20 05:00 70 29 148/79 (102) 92 06/21/20 04:00 67 06/21/20 04:00 98.9 70 26 146/79 (101) 94 06/21/20 04:00 Non-Rebreather Non-Rebreather Non-Rebreather 06/21/20 03:00 64 26 149/76 (100) 92 06/21/20 02:00 66 27 150/79 (102) 94 06/21/20 01:57 97 Non-Rebreather 15.0 100 06/21/20 01:00 66 28 141/77 (98) 91 06/21/20 00:00 Non-Rebreather Non-Rebreather Non-Rebreather 06/21/20 00:00 72 06/21/20 00:00 73 29 149/79 (102) 93 06/20/20 23:00 66 24 148/79 (102) 95 06/20/20 22:00 70 26 146/77 (100) 95 06/20/20 21:00 73 31 143/74 (97) 97 06/20/20 20:00 99.2 69 29 137/77 (97) 96 06/20/20 20:00 Non-Rebreather Non-Rebreather Non-Rebreather 06/20/20 20:00 15.0 100 06/20/20 20:00 103 06/20/20 19:00 74 28 135/77 (96) 95 06/20/20 18:00 78 29 135/75 (95) 99 06/20/20 18:00 83 29 135/75 (95) 99 06/20/20 17:00 87 27 131/80 (97) 83 06/20/20 17:00 83 28 131/80 (97) 97 06/20/20 16:00 72 06/20/20 16:00 Non-Rebreather Non-Rebreather Non-Rebreather 06/20/20 16:00 98.0 69 26 144/84 (104) 97 06/20/20 16:00 72 27 144/84 (104) 98 06/20/20 16:00 15.0 100 06/20/20 15:00 65 27 140/76 (97) 97 06/20/20 15:00 70 26 140/76 (97) 97 06/20/20 14:03 95 Non-Rebreather 15.0 100 06/20/20 14:00 71 30 136/90 (105) 96 06/20/20 13:27 95 06/20/20 13:00 70 30 148/77 (100) 98 06/20/20 12:00 72 26 154/90 (111) 98 06/20/20 12:00 Non-Rebreather Non-Rebreather Non-Rebreather 06/20/20 12:00 57 06/20/20 12:00 15.0 100 06/20/20 11:07 96 06/20/20 11:00 66 27 131/77 (95) 91 06/20/20 10:00 76 25 148/80 (102) 99 Intake and Output 06/20/20 06/21/20 19:00 07:00 Intake Total 1418.196 ml 923.196 ml Output Total 750 ml 600 ml Balance 668.196 ml 323.196 ml Intake Oral 400 ml 540 ml IV Total 1018.196 ml 383.196 ml Output Urine Total 750 ml 600 ml # Voids 3 2 General Appearance: no acute distress HEENT: normocephalic Respiratory: chest wall non-tender, lungs clear Cardiovascular: normal peripheral pulses Abdomen: normal bowel sounds Extremities: no cyanosis Microbiology Date/Time Source Procedure Growth Status 06/18/20 21:10 Nasal Nares MRSA Culture - Final NO METHICILLIN RESISTANT STAPH AUREUS... Complete 06/18/20 16:10 Nasopharynx SARS-CoV-2 RdRp Gene Assay - Final Complete 06/18/20 16:10 Blood Blood Culture - Preliminary NO GROWTH AFTER 48 HOURS Resulted 06/18/20 15:55 Blood Blood Culture - Preliminary NO GROWTH AFTER 48 HOURS Resulted Laboratory Tests 06/20/20 12:08: Activated Partial Thromboplast Time 78H 06/21/20 04:30: Activated Partial Thromboplast Time 81H, White Blood Count 9.9, Red Blood Count 4.02L, Hemoglobin 12.6L, Hematocrit 34.5L, Mean Corpuscular Volume 86, Mean Corpuscular Hemoglobin 31.2H, Mean Corpuscular Hemoglobin Concent 36.4H, Red Cell Distribution Width 12.8, Platelet Count 221, Mean Platelet Volume 7.6, Neutrophils (%) (Auto) , Lymphocytes (%) (Auto) , Monocytes (%) (Auto) , Eosinophils (%) (Auto) , Basophils (%) (Auto) , Differential Total Cells Counted 100, Neutrophils % (Manual) 95H, Lymphocytes % (Manual) 4L, Monocytes % (Manual) 1, Eosinophils % (Manual) 0, Basophils % (Manual) 0, Band Neutrophils 0, Platelet Estimate Adequate, Platelet Morphology Normal, Red Blood Cell Morphology Normal, Sodium Level 138, Potassium Level 3.6, Chloride Level 106, Carbon Dioxide Level 28, Anion Gap 4L, Blood Urea Nitrogen 16, Creatinine 0.6, Estimat Glomerular Filtration Rate > 60, Glucose Level 181H, Calcium Level 7.6L, Total Bilirubin 0.3, Direct Bilirubin < 0.1, Aspartate Amino Transf (AST/SGOT) 57H, Alanine Aminotransferase (ALT/SGPT) 70, Alkaline Phosphatase 124H, Total Protein 6.2L, Albumin 1.7L, Globulin 4.5, Albumin/Globulin Ratio 0.4L Current Medications Medications (Trade) Dose Ordered Sig/Yoselin Route PRN Reason Start Time Stop Time Status Last Admin Dose Admin Acetaminophen (Tylenol) 650 mg Q6H PRN ORAL For Pain 06/18/20 22:00 07/18/20 21:59 Aspirin (ASA) 81 mg DAILY ORAL 06/20/20 09:00 08/04/20 08:59 06/21/20 08:24 Azithromycin 500 mg/Dextrose 275 ml @ 275 mls/hr Q24HRS IV 06/19/20 16:00 06/25/20 16:59 06/20/20 15:51 Ceftriaxone Sodium 1 gm/ Dextrose 55 ml @ 110 mls/hr Q24H IVPB 06/19/20 17:00 06/26/20 16:59 06/20/20 17:27 Dexamethasone Sodium Phosphate (Decadron 10mg/ ml Inj) 6 mg DAILY IV 06/19/20 09:00 06/28/20 09:01 06/21/20 08:24 Heparin Sodium/ Dextrose 500 ml @ 31.933 mls/ hr ADJUST PER PROTOCOL IV 06/20/20 05:45 07/20/20 05:44 06/21/20 01:29 Ondansetron HCl (Zofran) 4 mg Q6H PRN IVP Nausea & Vomiting 06/18/20 22:00 07/18/20 21:59 Pantoprazole (Protonix) 40 mg DAILY IVP 06/20/20 09:00 07/20/20 08:59 06/21/20 08:24 Remdesivir 100 mg/ Sodium Chloride 250 ml @ 250 mls/hr Q24H IV 06/20/20 16:00 06/23/20 16:59 06/20/20 15:50 Assessment/Plan Assessment/Plan IMPRESSION: 1. COVID-19 pneumonia. 2. Respiratory failure. 3. Pulmonary embolism. 4. Troponin leak. DISCUSSION: Continue Decadron, Continue heparin infusion, Continue broad-spectrum antibiotics. Seen by ID for remdesivir. Maintain on nonrebreather mask We will monitor x-ray chest Check ABG and labs in a.m. Tea Peterson Omar Syed MD Jun 21, 2020 09:47
--- NOTE | 2020-06-21 10:15 | NUR ---
NURSE NOTES: Pt. remain stable. Abg drawn.
--- NOTE | 2020-06-21 11:30 | NUR ---
NURSE NOTES: Pt. using his urinal with good output. Pt. remain stable.
--- NOTE | 2020-06-21 12:36 | Diagnostic Imaging Report ---
FILM CXR 1 VIEW History: Follow-up Comparison: 18 June 2020 Findings: Multilobar infiltrates and interstitial prominence with slightly worse appearance from the prior exam. Heart size is mildly prominent. No effusion or pneumothorax appreciated. No acute osseous abnormality. Impression: Multilobar infiltrates with slightly worse appearance from the prior exam. Most significant disease in the right upper lobe. Enlarged heart noted.
--- NOTE | 2020-06-21 13:52 | NUR ---
NURSE NOTES: Pt. self repositioned himself. Alert. Pt. having his lunch.
--- NOTE | 2020-06-21 14:10 | NUR ---
NURSE NOTES: Pt. remain stable. No sign of distress. On non-rebreather mask at 15L. No grimacing noted.
[2020-06-21] MEDS: Azithromycin 500 MG in D5W 275 ML IV SCH (16:05)
[2020-06-21] MEDS: Maintenance Dose:Remdesivir 100mg/NS 230ml x 4 Doses IV SCH ×2 (16:05)
--- NOTE | 2020-06-21 16:50 | NUR ---
NURSE NOTES: Pt. pleasant and cooperative with care. Cont. on Heparin drip at 22u/kg/hr. No active bleeding noted.
[2020-06-21] MEDS: cefTRIAXone 1 GM in D5W 55 ML IVPB SCH (17:44)
--- NOTE | 2020-06-21 18:47 | NUR ---
NURSE NOTES: Called pharmacy for Heparin label due to previous bag need to be replace.
--- NOTE | 2020-06-21 19:21 | NUR ---
NURSE HAND-OFF REPORT: Pt. cont. on Heparin drip. Pt. remain stable. Latest Vital Signs: Temperature 98.9 , Pulse 82 , B/P 133 /73 , Respiratory Rate 32 , O2 SAT 94 , Bi-pap, O2 Flow Rate 15.0 . Vital Sign Comment: wnl EKG Rhythm: Sinus Rhythm Rhythm change?: N MD Notified?: - MD Response: Latest Mcdowell Fall Score: 35 Fall Risk: Medium Risk Safety Measures: Call light Within Reach, Bed Alarm Zone 2, Side Rails Side Rails x3, Bed position Low and Locked. Fall Precautions: Yellow Socks Yellow Gown Door Sign Patient Fall Education Report given to Monserrat AGUIRRE.
--- NOTE | 2020-06-21 19:37 | NUR ---
NURSE NOTES: Report received from TIMOTHY Roque. Observed pt lying in the bed, awake, denies any pain at this time. SR on monitor. On NRM at this time, saturating at 96%. IV on L AC 18G, intact. R AC 20G, intact, running Heparin at 22units noted. Bed in the lowest position. Side rails up x3. Will continue to monitor .
--- NOTE | 2020-06-21 22:18 | NUR ---
NURSE NOTES: Pt denies any pain at this time. SR with HR of 67 noted. BP of 157/79. On NMR, saturating at 92% at this time.
--- NOTE | 2020-06-21 23:30 | NUR ---
NURSE NOTES: Changed to bipap at this time. 15, 80%, saturating at 92% at this time. Will continue to monitor .
[2020-06-22] VITALS (24 sets, daily range): BP systolic 114–147; BP diastolic 64–84
--- NOTE | 2020-06-22 02:09 | NUR ---
NURSE NOTES: No acute distress noted at this time. Pt sleeping in the bed. On bipap 15/5, 100%, saturating at 95%. Heparin running at 22U. No signs of bleeding noted. Will continue to monitor.
[2020-06-22 04:18] LABS: HEMATOCRIT 36.9 % (42.0-52.0); HEMOGLOBIN 13.8 G/DL (14.2-18.0); MEAN CORPUSCULAR VOLUME 83 FL (80-99); PLATELET COUNT 244 K/UL (150-450); RED BLOOD COUNT 4.42 M/UL (4.70-6.10); RED CELL DISTRIBUTION WIDTH 13.1 % (11.6-14.8); WHITE BLOOD COUNT 11.7 K/UL (4.8-10.8)
[2020-06-22 04:32] LABS: ALANINE AMINOTRANSFERASE 68 U/L (12-78); ALBUMIN 1.8 G/DL (3.4-5.0); ALBUMIN/GLOBULIN RATIO 0.4 (1.0-2.7); ALKALINE PHOSPHATASE 137 U/L (46-116); ANION GAP 4 mmol/L (5-15); ASPARTATE AMINO TRANSFERASE 51 U/L (15-37); BILIRUBIN,DIRECT 0.1 MG/DL (0.0-0.3); BILIRUBIN,TOTAL 0.4 MG/DL (0.2-1.0); BLOOD UREA NITROGEN 12 mg/dL (7-18); CALCIUM 7.6 MG/DL (8.5-10.1); CARBON DIOXIDE 29 MMOL/L (21-32); CHLORIDE 101 MMOL/L (98-107); CREATININE 0.6 MG/DL (0.55-1.30); POTASSIUM 3.5 MMOL/L (3.5-5.1); SODIUM 134 MMOL/L (136-145)
--- NOTE | 2020-06-22 04:38 | NUR ---
NURSE NOTES: Pt awake, calm. Denies any pain at this time. On bipap 15/5, 100%, saturating at 92% at this time. Hep gtt running 22U. Will continue to monitor.
--- NOTE | 2020-06-22 04:57 | Cardiology Progress Note ---
Subjective DATE OF SERVICE: Jun 21, 2020 Remains on non-rebreather mask Labs/ABG noted Monitor: sinus rhythm with rare ectopics Objective Last 24 Hour Vital Signs Date Time Temp Pulse Resp B/P (MAP) Pulse Ox O2 Delivery O2 Flow Rate FiO2 06/22/20 04:00 Non-Rebreather Non-Rebreather Non-Rebreather 06/22/20 04:00 71 28 133/80 (97) 91 06/22/20 03:44 73 27 95 100 06/22/20 03:04 60 06/22/20 03:00 63 25 142/80 (100) 94 06/22/20 02:00 61 25 96 06/22/20 02:00 61 25 147/83 (104) 96 06/22/20 01:00 64 28 129/75 (93) 91 06/22/20 00:00 Non-Rebreather Non-Rebreather Non-Rebreather 06/22/20 00:00 99.0 77 22 132/73 (92) 91 06/21/20 23:33 59 06/21/20 23:00 65 27 144/77 (99) 93 06/21/20 22:28 63 25 94 85 06/21/20 22:00 69 26 157/79 (105) 93 06/21/20 21:00 15.0 100 06/21/20 21:00 71 32 149/82 (104) 94 06/21/20 20:00 99.0 72 28 150/80 (103) 95 06/21/20 20:00 Non-Rebreather Non-Rebreather Non-Rebreather 06/21/20 20:00 77 06/21/20 19:30 100 Non-Rebreather 15.0 100 06/21/20 19:00 82 32 133/73 (93) 94 06/21/20 18:00 73 29 153/80 (104) 89 06/21/20 17:00 70 28 145/84 (104) 95 06/21/20 16:00 98.9 73 29 154/79 (104) 92 06/21/20 16:00 Non-Rebreather Non-Rebreather Non-Rebreather 06/21/20 15:18 62 06/21/20 15:00 65 29 144/79 (100) 96 06/21/20 14:00 78 23 134/77 (96) 94 06/21/20 13:00 75 25 152/82 (105) 93 06/21/20 12:00 Non-Rebreather Non-Rebreather Non-Rebreather 06/21/20 12:00 98.7 72 26 150/80 (103) 93 06/21/20 11:33 67 06/21/20 11:00 61 28 153/74 (100) 94 06/21/20 10:00 71 24 156/88 (110) 97 06/21/20 09:00 80 28 126/69 (88) 92 06/21/20 08:00 98.4 73 25 152/79 (103) 98 06/21/20 08:00 Non-Rebreather Non-Rebreather Non-Rebreather 06/21/20 07:35 93 Non-Rebreather 15.0 100 06/21/20 07:00 74 06/21/20 07:00 72 24 136/87 (103) 98 06/21/20 06:00 64 26 154/78 (103) 95 06/21/20 05:00 70 29 148/79 (102) 92 ROS: unchanged from 06/19/20 HEENT: other - high flow mask RHYTHM: NSR LUNGS: bilat. rhonchi and rales CARDIAC: normal rate, regular rhythm, normal S1 and S2 ABDOMEN: normal bowel sounds, soft, distended EXTREMITIES: normal range of motion, non-tender, trace edema Laboratory Tests Test 06/21/20 09:33 06/22/20 04:10 Arterial Blood pH 7.465 (7.350-7.450) Arterial Blood Partial Pressure CO2 34.6 mmHg (35.0-45.0) L Arterial Blood Partial Pressure O2 79.3 mmHg (75.0-100.0) Arterial Blood HCO3 24.3 mmol/L (22.0-26.0) Arterial Blood Oxygen Saturation 95.4 % (95-100) Arterial Blood Base Excess 1.0 (-2-2) Roshan Test Positive White Blood Count 11.7 K/UL (4.8-10.8) H Red Blood Count 4.42 M/UL (4.70-6.10) L Hemoglobin 13.8 G/DL (14.2-18.0) L Hematocrit 36.9 % (42.0-52.0) L Mean Corpuscular Volume 83 FL (80-99) Mean Corpuscular Hemoglobin 31.2 PG (27.0-31.0) H Mean Corpuscular Hemoglobin Concent 37.4 G/DL (32.0-36.0) H Red Cell Distribution Width 13.1 % (11.6-14.8) Platelet Count 244 K/UL (150-450) Mean Platelet Volume 7.3 FL (6.5-10.1) Neutrophils (%) (Auto) % (45.0-75.0) Lymphocytes (%) (Auto) % (20.0-45.0) Monocytes (%) (Auto) % (1.0-10.0) Eosinophils (%) (Auto) % (0.0-3.0) Basophils (%) (Auto) % (0.0-2.0) Activated Partial Thromboplast Time 106 SEC (23-33) H Sodium Level 134 MMOL/L (136-145) L Potassium Level 3.5 MMOL/L (3.5-5.1) Chloride Level 101 MMOL/L (98-107) Carbon Dioxide Level 29 MMOL/L (21-32) Anion Gap 4 mmol/L (5-15) L Blood Urea Nitrogen 12 mg/dL (7-18) Creatinine 0.6 MG/DL (0.55-1.30) Estimat Glomerular Filtration Rate > 60 mL/min (>60) Glucose Level 159 MG/DL (74-106) H Calcium Level 7.6 MG/DL (8.5-10.1) L Total Bilirubin 0.4 MG/DL (0.2-1.0) Direct Bilirubin 0.1 MG/DL (0.0-0.3) Aspartate Amino Transf (AST/SGOT) 51 U/L (15-37) H Alanine Aminotransferase (ALT/SGPT) 68 U/L (12-78) Alkaline Phosphatase 137 U/L (46-116) H Total Protein 6.3 G/DL (6.4-8.2) L Albumin 1.8 G/DL (3.4-5.0) L Globulin 4.5 g/dL Albumin/Globulin Ratio 0.4 (1.0-2.7) L Assessment/Plan Assessment/Plan COVID 19 PNA Hypoxia Ac pulmonary embolism Acute coronary syndrome/Probable NSTE myocardial infarction involving right heart Severe protein/calorie malnutrition Steroid induced diabetes mellitus R/O pulmonary hypertension O2 suppl Full anticoagulation Monitor for sustained atrial arrhythmias Replace lytes as needed Insulin cov'g by SS Check 2D echo Aden Mejias MD Jun 22, 2020 04:57
[2020-06-22] MEDS ORDERED: Heparin 25,000u/D5W 500ml 500 ML IV SCH ×3 (05:30→21:07)
--- NOTE | 2020-06-22 07:10 | NUR ---
NURSE HAND-OFF REPORT: Report given to TIMOTHY Johnson. Pt on Bipap 15/5, 100%, saturating at 99% at this time. SR noted. Hep gtt running at 19units. Latest Vital Signs: Temperature 98.8 , Pulse 63 , B/P 131 /78 , Respiratory Rate 26 , O2 SAT 98 , Bi-pap, O2 Flow Rate 15.0 . Vital Sign Comment: [] EKG Rhythm: Sinus Rhythm Rhythm change?: N MD Notified?: - MD Response: Latest Mcdowell Fall Score: 35 Fall Risk: Medium Risk Safety Measures: Call light Within Reach, Bed Alarm Zone 2, Side Rails Side Rails x3, Bed position Low and Locked. Fall Precautions: Yellow Socks Yellow Gown Door Sign Patient Fall Education Report given to TIMOTHY Johnson.
[2020-06-22] MEDS: dexAMETHasone 10mg/ml Inj IV SCH (09:04)
[2020-06-22] MEDS: Pantoprazole Inj IVP SCH (09:04)
[2020-06-22] MEDS: Aspirin Baby 81mg ORAL SCH (09:04)
--- NOTE | 2020-06-22 10:30 | NUR ---
NURSE NOTES: Report received from TIMOTHY Russo. Pt lying comfortably in high-fowlers with no signs of distress. A+Ox4, speaking in complete sentences. Respirations labored on bipap with settings of 15/5. Sinus rhythm on the monitor 74 beats/min. pt NPO status. Abdomen soft. Pt denies pain at this time but having SOB. Two IVs patent with one running heparin drip @ 19 u/kg/hr. Pt skin dry and intact. Pt educated on moving himself around in bed to avoid pressure injuries. Pt verbalized understanding. Bed is in lowest position, brakes engaged, siderails x2, bed alarm on, and call light within reach. Pt in stable condition; will continue to monitor .
--- NOTE | 2020-06-22 11:51 | Pulmonology Progress Note ---
Subjective ROS Limited/Unobtainable: Yes Interval Events: Looking and feeling better. On NRBM Constitutional: Reports: no symptoms HEENT: Repors: no symptoms Respiratory: Reports: no symptoms Cardiovascular: Reports: no symptoms Gastrointestinal/Abdominal: Reports: no symptoms Allergies: Coded Allergies: No Known Allergies (Unverified , 06/18/20) Objective Last 24 Hour Vital Signs Date Time Temp Pulse Resp B/P (MAP) Pulse Ox O2 Delivery O2 Flow Rate FiO2 06/22/20 10:00 78 29 124/84 (97) 98 06/22/20 09:00 75 29 127/80 (96) 98 06/22/20 08:00 84 28 124/73 (90) 98 06/22/20 08:00 Non-Rebreather Bi-pap Non-Rebreather 06/22/20 08:00 60 06/22/20 07:14 81 31 94 100 06/22/20 07:02 94 Bi-Pap 100 06/22/20 07:00 63 26 131/78 (95) 98 06/22/20 06:00 66 27 126/75 (92) 98 06/22/20 05:00 98.8 66 24 125/76 (92) 97 06/22/20 04:00 Non-Rebreather Bi-pap Non-Rebreather 06/22/20 04:00 71 28 133/80 (97) 91 06/22/20 03:44 73 27 95 100 06/22/20 03:04 60 06/22/20 03:00 63 25 142/80 (100) 94 06/22/20 02:00 61 25 96 06/22/20 02:00 61 25 147/83 (104) 96 06/22/20 01:00 64 28 129/75 (93) 91 06/22/20 00:00 Non-Rebreather Non-Rebreather Bi-pap 06/22/20 00:00 99.0 77 22 132/73 (92) 91 06/21/20 23:33 59 06/21/20 23:00 65 27 144/77 (99) 93 06/21/20 22:28 63 25 94 85 06/21/20 22:00 69 26 157/79 (105) 93 06/21/20 21:00 15.0 100 06/21/20 21:00 71 32 149/82 (104) 94 06/21/20 20:00 99.0 72 28 150/80 (103) 95 06/21/20 20:00 Non-Rebreather Non-Rebreather Non-Rebreather 06/21/20 20:00 77 06/21/20 19:30 100 Non-Rebreather 15.0 100 06/21/20 19:00 82 32 133/73 (93) 94 06/21/20 18:00 73 29 153/80 (104) 89 06/21/20 17:00 70 28 145/84 (104) 95 06/21/20 16:00 98.9 73 29 154/79 (104) 92 06/21/20 16:00 Non-Rebreather Non-Rebreather Non-Rebreather 06/21/20 15:18 62 06/21/20 15:00 65 29 144/79 (100) 96 06/21/20 14:00 78 23 134/77 (96) 94 06/21/20 13:00 75 25 152/82 (105) 93 06/21/20 12:00 Non-Rebreather Non-Rebreather Non-Rebreather 06/21/20 12:00 98.7 72 26 150/80 (103) 93 Intake and Output 06/21/20 06/22/20 19:00 07:00 Intake Total 287.397 ml 297.480 ml Output Total 800 ml 600 ml Balance -512.603 ml -302.520 ml IV Total 287.397 ml 297.480 ml Output Urine Total 800 ml 600 ml # Voids 6 General Appearance: no acute distress HEENT: normocephalic Respiratory: chest wall non-tender, lungs clear Cardiovascular: normal peripheral pulses Abdomen: normal bowel sounds Extremities: no cyanosis Laboratory Tests 06/22/20 04:10: White Blood Count 11.7H, Red Blood Count 4.42L, Hemoglobin 13.8L, Hematocrit 36.9L, Mean Corpuscular Volume 83, Mean Corpuscular Hemoglobin 31.2H, Mean Corpuscular Hemoglobin Concent 37.4H, Red Cell Distribution Width 13.1, Platelet Count 244, Mean Platelet Volume 7.3, Neutrophils (%) (Auto) , Lymphocytes (%) (Auto) , Monocytes (%) (Auto) , Eosinophils (%) (Auto) , Basophils (%) (Auto) , Activated Partial Thromboplast Time 106H, Sodium Level 134L, Potassium Level 3.5, Chloride Level 101, Carbon Dioxide Level 29, Anion Gap 4L, Blood Urea Nitrogen 12, Creatinine 0.6, Estimat Glomerular Filtration Rate > 60, Glucose Level 159H, Calcium Level 7.6L, Total Bilirubin 0.4, Direct Bilirubin 0.1, Aspartate Amino Transf (AST/SGOT) 51H, Alanine Aminotransferase (ALT/SGPT) 68, Alkaline Phosphatase 137H, Total Protein 6.3L, Albumin 1.8L, Globulin 4.5, Albumin/Globulin Ratio 0.4L 06/22/20 08:43: Arterial Blood pH 7.498H, Arterial Blood Partial Pressure CO2 35.6, Arterial Blood Partial Pressure O2 66.0L, Arterial Blood HCO3 27.0H, Arterial Blood Oxygen Saturation 92.9L, Arterial Blood Base Excess 4.0H, Roshan Test Positive Current Medications Medications (Trade) Dose Ordered Sig/Yoselin Route PRN Reason Start Time Stop Time Status Last Admin Dose Admin Acetaminophen (Tylenol) 650 mg Q6H PRN ORAL For Pain 06/18/20 22:00 07/18/20 21:59 Aspirin (ASA) 81 mg DAILY ORAL 06/20/20 09:00 08/04/20 08:59 06/22/20 09:04 Azithromycin 500 mg/Dextrose 275 ml @ 275 mls/hr Q24HRS IV 06/19/20 16:00 06/25/20 16:59 06/21/20 16:05 Ceftriaxone Sodium 1 gm/ Dextrose 55 ml @ 110 mls/hr Q24H IVPB 06/19/20 17:00 06/26/20 16:59 06/21/20 17:44 Dexamethasone Sodium Phosphate (Decadron 10mg/ ml Inj) 6 mg DAILY IV 06/19/20 09:00 06/28/20 09:01 06/22/20 09:04 Heparin Sodium/ Dextrose 500 ml @ 27.579 mls/ hr ADJUST PER PROTOCOL IV 06/22/20 05:30 07/22/20 05:29 06/22/20 06:19 Ondansetron HCl (Zofran) 4 mg Q6H PRN IVP Nausea & Vomiting 06/18/20 22:00 07/18/20 21:59 Pantoprazole (Protonix) 40 mg DAILY IVP 06/20/20 09:00 07/20/20 08:59 06/22/20 09:04 Remdesivir 100 mg/ Sodium Chloride 250 ml @ 250 mls/hr Q24H IV 06/20/20 16:00 06/23/20 16:59 06/21/20 16:05 Assessment/Plan Assessment/Plan IMPRESSION: 1. COVID-19 pneumonia. 2. Respiratory failure. 3. Pulmonary embolism. 4. Troponin leak. DISCUSSION: Continue Decadron, Continue heparin infusion, Continue broad-spectrum antibiotics. Seen by ID for remdesivir. Maintain on nonrebreather mask We will monitor x-ray chest CXR unchanged ABG better Gurdeep Reyes M.D. Gurdeep Reyes MD Jun 22, 2020 11:51
--- NOTE | 2020-06-22 12:17 | Infectious Diseases Prog Note ---
Assessment/Plan Assessment/Plan antibiotics : ceftriaxone, azithromycin remdesivir A 1. COVID 19 pneumonia on bipap 100 % Fi O2 with 92 % saturation 2. pulmonary embolism 3. respiratory failure P 1. continue remdesivir day 4 2. continue dexamethasone day 4 3. continue ceftriaxone, azithromycin 4. continue isolation Subjective ROS Limited/Unobtainable: Yes Allergies: Coded Allergies: No Known Allergies (Unverified , 06/18/20) Objective Last 24 Hour Vital Signs Date Time Temp Pulse Resp B/P (MAP) Pulse Ox O2 Delivery O2 Flow Rate FiO2 06/22/20 11:00 76 30 126/73 (90) 92 06/22/20 10:00 78 29 124/84 (97) 98 06/22/20 09:00 75 29 127/80 (96) 98 06/22/20 08:00 84 28 124/73 (90) 98 06/22/20 08:00 Non-Rebreather Bi-pap Non-Rebreather 06/22/20 08:00 60 06/22/20 07:14 81 31 94 100 06/22/20 07:02 94 Bi-Pap 100 06/22/20 07:00 63 26 131/78 (95) 98 06/22/20 06:00 66 27 126/75 (92) 98 06/22/20 05:00 98.8 66 24 125/76 (92) 97 06/22/20 04:00 Non-Rebreather Bi-pap Non-Rebreather 06/22/20 04:00 71 28 133/80 (97) 91 06/22/20 03:44 73 27 95 100 06/22/20 03:04 60 06/22/20 03:00 63 25 142/80 (100) 94 06/22/20 02:00 61 25 96 06/22/20 02:00 61 25 147/83 (104) 96 06/22/20 01:00 64 28 129/75 (93) 91 06/22/20 00:00 Non-Rebreather Non-Rebreather Bi-pap 06/22/20 00:00 99.0 77 22 132/73 (92) 91 06/21/20 23:33 59 06/21/20 23:00 65 27 144/77 (99) 93 06/21/20 22:28 63 25 94 85 06/21/20 22:00 69 26 157/79 (105) 93 06/21/20 21:00 15.0 100 06/21/20 21:00 71 32 149/82 (104) 94 06/21/20 20:00 99.0 72 28 150/80 (103) 95 06/21/20 20:00 Non-Rebreather Non-Rebreather Non-Rebreather 06/21/20 20:00 77 06/21/20 19:30 100 Non-Rebreather 15.0 100 06/21/20 19:00 82 32 133/73 (93) 94 06/21/20 18:00 73 29 153/80 (104) 89 06/21/20 17:00 70 28 145/84 (104) 95 06/21/20 16:00 98.9 73 29 154/79 (104) 92 06/21/20 16:00 Non-Rebreather Non-Rebreather Non-Rebreather 06/21/20 15:18 62 06/21/20 15:00 65 29 144/79 (100) 96 06/21/20 14:00 78 23 134/77 (96) 94 06/21/20 13:00 75 25 152/82 (105) 93 Height (Feet): 5 Height (Inches): 4.00 Weight (Pounds): 146 Laboratory Tests Test 06/22/20 04:10 06/22/20 08:43 White Blood Count 11.7 K/UL (4.8-10.8) H Red Blood Count 4.42 M/UL (4.70-6.10) L Hemoglobin 13.8 G/DL (14.2-18.0) L Hematocrit 36.9 % (42.0-52.0) L Mean Corpuscular Volume 83 FL (80-99) Mean Corpuscular Hemoglobin 31.2 PG (27.0-31.0) H Mean Corpuscular Hemoglobin Concent 37.4 G/DL (32.0-36.0) H Red Cell Distribution Width 13.1 % (11.6-14.8) Platelet Count 244 K/UL (150-450) Mean Platelet Volume 7.3 FL (6.5-10.1) Neutrophils (%) (Auto) % (45.0-75.0) Lymphocytes (%) (Auto) % (20.0-45.0) Monocytes (%) (Auto) % (1.0-10.0) Eosinophils (%) (Auto) % (0.0-3.0) Basophils (%) (Auto) % (0.0-2.0) Activated Partial Thromboplast Time 106 SEC (23-33) H Sodium Level 134 MMOL/L (136-145) L Potassium Level 3.5 MMOL/L (3.5-5.1) Chloride Level 101 MMOL/L (98-107) Carbon Dioxide Level 29 MMOL/L (21-32) Anion Gap 4 mmol/L (5-15) L Blood Urea Nitrogen 12 mg/dL (7-18) Creatinine 0.6 MG/DL (0.55-1.30) Estimat Glomerular Filtration Rate > 60 mL/min (>60) Glucose Level 159 MG/DL (74-106) H Calcium Level 7.6 MG/DL (8.5-10.1) L Total Bilirubin 0.4 MG/DL (0.2-1.0) Direct Bilirubin 0.1 MG/DL (0.0-0.3) Aspartate Amino Transf (AST/SGOT) 51 U/L (15-37) H Alanine Aminotransferase (ALT/SGPT) 68 U/L (12-78) Alkaline Phosphatase 137 U/L (46-116) H Total Protein 6.3 G/DL (6.4-8.2) L Albumin 1.8 G/DL (3.4-5.0) L Globulin 4.5 g/dL Albumin/Globulin Ratio 0.4 (1.0-2.7) L Arterial Blood pH 7.498 (7.350-7.450) Arterial Blood Partial Pressure CO2 35.6 mmHg (35.0-45.0) Arterial Blood Partial Pressure O2 66.0 mmHg (75.0-100.0) L Arterial Blood HCO3 27.0 mmol/L (22.0-26.0) H Arterial Blood Oxygen Saturation 92.9 % (95-100) L Arterial Blood Base Excess 4.0 (-2-2) H Roshan Test Positive Current Medications Medications (Trade) Dose Ordered Sig/Yoselin Route PRN Reason Start Time Stop Time Status Last Admin Dose Admin Acetaminophen (Tylenol) 650 mg Q6H PRN ORAL For Pain 06/18/20 22:00 07/18/20 21:59 Aspirin (ASA) 81 mg DAILY ORAL 06/20/20 09:00 08/04/20 08:59 06/22/20 09:04 Azithromycin 500 mg/Dextrose 275 ml @ 275 mls/hr Q24HRS IV 06/19/20 16:00 06/25/20 16:59 06/21/20 16:05 Ceftriaxone Sodium 1 gm/ Dextrose 55 ml @ 110 mls/hr Q24H IVPB 06/19/20 17:00 06/26/20 16:59 06/21/20 17:44 Dexamethasone Sodium Phosphate (Decadron 10mg/ ml Inj) 6 mg DAILY IV 06/19/20 09:00 06/28/20 09:01 06/22/20 09:04 Heparin Sodium/ Dextrose 500 ml @ 27.579 mls/ hr ADJUST PER PROTOCOL IV 06/22/20 05:30 07/22/20 05:29 06/22/20 06:19 Ondansetron HCl (Zofran) 4 mg Q6H PRN IVP Nausea & Vomiting 06/18/20 22:00 07/18/20 21:59 Pantoprazole (Protonix) 40 mg DAILY IVP 06/20/20 09:00 07/20/20 08:59 06/22/20 09:04 Remdesivir 100 mg/ Sodium Chloride 250 ml @ 250 mls/hr Q24H IV 06/20/20 16:00 06/23/20 16:59 06/21/20 16:05 Swapna Falk MD Jun 22, 2020 12:17
--- NOTE | 2020-06-22 13:13 | NUR ---
NURSE NOTES: Dr. Reyes @ bedside, made aware of pt desaturation to as low as 88% on current settings with increased WOB and increased resp rate to 38 resp/min. Per MD, RT can increase settings to 18/6. RT Johny made aware and settings changed to 18/6. O2 sat now 93%
[2020-06-22] MEDS ORDERED: Heparin 5000 units/ml inj IV SCH (13:44)
[2020-06-22] MEDS: Azithromycin 500 MG in D5W 275 ML IV SCH (15:16)
--- NOTE | 2020-06-22 16:03 | NUR ---
CASE MANAGEMENT:REVIEW 06/22/20 SI: COVID PNA. PULMONARY EMBOLI 99.0 80 32 133/76 92% ON NRB MASK W/100% FIO2 WBC+11.7 CA-7.6 PTT+58 IS: HEPARIN GTT IV REMDESIVIR Q24 IV ROCEPHIN Q24 IV AZITHROMYCIN Q24 IV DECADRON Q24 ASA PO QD : ICU STATUS DCP: FROM HOME
--- NOTE | 2020-06-22 16:17 | NUR ---
NURSE NOTES: Pt's wOB increased. Resp rate 38-41/min. HR 95-105. Or saturation 85-90%. Left message with Dr. Reyes regarding patient condition; awaiting response.
[2020-06-22] MEDS: Maintenance Dose:Remdesivir 100mg/NS 230ml x 4 Doses IV SCH ×2 (16:20)
--- NOTE | 2020-06-22 16:31 | NUR ---
NURSE NOTES: spoke with Dr. Reyes who said if we have high flow oxygen put the patient on high flow AND nonrebreather. RT Tory aware. Cleaned patient's mouth and repositioned him. O2 sat back to 91% and HR now in the 80s. Will keep pt on bipap and let Dr. Reyes know if pt's O2 sat decreases again.
[2020-06-22] MEDS: cefTRIAXone 1 GM in D5W 55 ML IVPB SCH (17:32)
--- NOTE | 2020-06-22 18:22 | NUR ---
NURSE NOTES: pt in stable condition. Denies pain. Vitals stable as documented. Pt resting in bed comfortably.
--- NOTE | 2020-06-22 18:28 | NUR ---
[employer]URANCE [employer]IC[employer]/REVIEW FAXED (06/18-06/22) TO [place] Coordinator: Guy redmond #[phone] fax# [phone]
--- NOTE | 2020-06-22 19:21 | NUR ---
NURSE HAND-OFF REPORT: Latest Vital Signs: Temperature 98.9 , Pulse 92 , B/P 120 /77 , Respiratory Rate 35 , O2 SAT 86 , Bi-pap, O2 Flow Rate 15.0 . Vital Sign Comment: EKG Rhythm: Sinus Rhythm Rhythm change?: N MD Notified?: - MD Response: Latest Mcdowell Fall Score: 35 Fall Risk: Medium Risk Safety Measures: Call light Within Reach, Bed Alarm Zone 2, Side Rails Side Rails x3, Bed position Low and Locked. Fall Precautions: Yellow Socks Yellow Gown Door Sign Patient Fall Education Report given to TIMOTHY Ortega
--- NOTE | 2020-06-22 19:30 | NUR ---
NURSE NOTES: Received report from Maribel AGUIRRE. Pt is COVID POSITIVE, AOx4, Bilingual Martiniquais/Malay speaking. Currently on BiPAP 18L inspiratory/10L expiratory 100%, O2-Sat 92%. Per AM shift, received order BiPAP with high flow by Dr. Ramirez; however, currently high flow machine is not available. Bilateral rales on auscultation. Intermittent cough present. Denies any pain or chest discomfort when asked. 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 Pt is maintained on Heparin drip current rate 21units/kg/hour per protocol. Peripheral IV access is present on Left AC18G and Right AC 20G, both patent/intact. Uses urinal at bedside, output of dark logan/mildly cloudy urine. Abdomen is round, soft, nontender to touch with hypoactive bowel sounds. LAB APTT ordered @1999 Safety measures observed and no acute distress noted. Will continue to monitor.
--- NOTE | 2020-06-22 20:00 | NUR ---
NURSE NOTES: APTT done by lab.
--- NOTE | 2020-06-22 20:30 | NUR ---
NURSE NOTES: Received order from pharmacy. Stop Heparin 30min and changed to 18U at 2100.
--- NOTE | 2020-06-22 21:00 | NUR ---
NURSE NOTES: Heparin changed to 18U
[2020-06-23] VITALS (24 sets, daily range): BP systolic 99–140; BP diastolic 59–83
--- NOTE | 2020-06-23 | NUR ---
TONIA NOTES: Pt remains AOx4, Bilingual Kazakh/Paraguayan speaking. Currently on BiPAP 18L inspiratory/10L expiratory 100%, O2-Sat 92%. Per AM shift, received order BiPAP with high flow by Dr. Ramirez; however, currently high flow machine is not available. Bilateral rales on auscultation. Intermittent cough present. Denies any pain or chest discomfort when asked. NSR on cafeteria monitor. Pt is maintained on Heparin drip current rate clanged to 18 units/kg/hour per protocol. Next APTT ordered at 0300. Peripheral IV access is present on Left AC18G and Right AC 20G, both patent/intact. Uses urinal at bedside, output of dark logan/mildly cloudy urine. Abdomen is round, soft, nontender to touch with hypoactive bowel sounds. LAB APTT ordered @1999 Safety measures observed and no acute distress noted. Will continue to monitor.
--- NOTE | 2020-06-23 03:12 | Cardiology Progress Note ---
Subjective DATE OF SERVICE: Jun 22, 2020 Remains on non-rebreather mask Labs/ABG noted Monitor: sinus rhythm with rare ectopics 2D Echo - normal LVEF, no signs RV strain, normal PA pressure of 30mm Hg Objective Last 24 Hour Vital Signs Date Time Temp Pulse Resp B/P (MAP) Pulse Ox O2 Delivery O2 Flow Rate FiO2 06/22/20 23:31 88 34 90 100 06/22/20 20:00 88 35 123/71 (88) 90 06/22/20 20:00 88 06/22/20 20:00 Non-Rebreather Bi-pap Non-Rebreather 06/22/20 19:39 91 Bi-Pap 100 06/22/20 19:38 85 38 91 100 06/22/20 19:00 86 35 123/69 (87) 90 06/22/20 18:00 92 35 120/77 (91) 86 06/22/20 17:00 84 32 126/71 (89) 92 06/22/20 16:00 98.9 92 35 120/71 (87) 91 06/22/20 16:00 Non-Rebreather Bi-pap Non-Rebreather 06/22/20 16:00 82 06/22/20 15:32 92 42 90 100 06/22/20 15:00 94 36 116/69 (85) 92 06/22/20 14:00 87 29 131/82 (98) 92 06/22/20 13:00 85 33 125/73 (90) 93 06/22/20 12:00 Non-Rebreather Bi-pap Non-Rebreather 06/22/20 12:00 99.0 78 32 133/76 (95) 92 06/22/20 12:00 80 06/22/20 11:04 90 33 92 100 06/22/20 11:00 76 30 126/73 (90) 92 06/22/20 10:00 78 29 124/84 (97) 98 06/22/20 09:00 75 29 127/80 (96) 98 06/22/20 08:00 84 28 124/73 (90) 98 06/22/20 08:00 Non-Rebreather Bi-pap Non-Rebreather 06/22/20 08:00 60 06/22/20 07:14 81 31 94 100 06/22/20 07:02 94 Bi-Pap 100 06/22/20 07:00 63 26 131/78 (95) 98 06/22/20 06:00 66 27 126/75 (92) 98 06/22/20 05:00 98.8 66 24 125/76 (92) 97 06/22/20 04:00 Non-Rebreather Bi-pap Non-Rebreather 06/22/20 04:00 71 28 133/80 (97) 91 06/22/20 03:44 73 27 95 100 ROS: unchanged from 06/19/20 HEENT: other - high flow mask RHYTHM: NSR LUNGS: bilat. rhonchi and rales CARDIAC: normal rate, regular rhythm, normal S1 and S2 ABDOMEN: normal bowel sounds, soft, distended EXTREMITIES: normal range of motion, non-tender, trace edema Laboratory Tests Test 06/22/20 04:10 06/22/20 08:43 06/22/20 12:30 06/22/20 19:40 White Blood Count 11.7 K/UL (4.8-10.8) H Red Blood Count 4.42 M/UL (4.70-6.10) L Hemoglobin 13.8 G/DL (14.2-18.0) L Hematocrit 36.9 % (42.0-52.0) L Mean Corpuscular Volume 83 FL (80-99) Mean Corpuscular Hemoglobin 31.2 PG (27.0-31.0) H Mean Corpuscular Hemoglobin Concent 37.4 G/DL (32.0-36.0) H Red Cell Distribution Width 13.1 % (11.6-14.8) Platelet Count 244 K/UL (150-450) Mean Platelet Volume 7.3 FL (6.5-10.1) Neutrophils (%) (Auto) % (45.0-75.0) Lymphocytes (%) (Auto) % (20.0-45.0) Monocytes (%) (Auto) % (1.0-10.0) Eosinophils (%) (Auto) % (0.0-3.0) Basophils (%) (Auto) % (0.0-2.0) Activated Partial Thromboplast Time 106 SEC (23-33) H 58 SEC (23-33) H 128 SEC (23-33) H Sodium Level 134 MMOL/L (136-145) L Potassium Level 3.5 MMOL/L (3.5-5.1) Chloride Level 101 MMOL/L (98-107) Carbon Dioxide Level 29 MMOL/L (21-32) Anion Gap 4 mmol/L (5-15) L Blood Urea Nitrogen 12 mg/dL (7-18) Creatinine 0.6 MG/DL (0.55-1.30) Estimat Glomerular Filtration Rate > 60 mL/min (>60) Glucose Level 159 MG/DL (74-106) H Calcium Level 7.6 MG/DL (8.5-10.1) L Total Bilirubin 0.4 MG/DL (0.2-1.0) Direct Bilirubin 0.1 MG/DL (0.0-0.3) Aspartate Amino Transf (AST/SGOT) 51 U/L (15-37) H Alanine Aminotransferase (ALT/SGPT) 68 U/L (12-78) Alkaline Phosphatase 137 U/L (46-116) H Total Protein 6.3 G/DL (6.4-8.2) L Albumin 1.8 G/DL (3.4-5.0) L Globulin 4.5 g/dL Albumin/Globulin Ratio 0.4 (1.0-2.7) L Arterial Blood pH 7.498 (7.350-7.450) Arterial Blood Partial Pressure CO2 35.6 mmHg (35.0-45.0) Arterial Blood Partial Pressure O2 66.0 mmHg (75.0-100.0) L Arterial Blood HCO3 27.0 mmol/L (22.0-26.0) H Arterial Blood Oxygen Saturation 92.9 % (95-100) L Arterial Blood Base Excess 4.0 (-2-2) H Roshan Test Positive Assessment/Plan Assessment/Plan COVID 19 PNA Hypoxia Ac pulmonary embolism Acute coronary syndrome/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
[2020-06-23 03:27] LABS: HEMATOCRIT 37.1 % (42.0-52.0); HEMOGLOBIN 14.1 G/DL (14.2-18.0); MEAN CORPUSCULAR VOLUME 83 FL (80-99); PLATELET COUNT 254 K/UL (150-450); RED BLOOD COUNT 4.44 M/UL (4.70-6.10); RED CELL DISTRIBUTION WIDTH 12.6 % (11.6-14.8)
[2020-06-23 03:40] LABS: ALANINE AMINOTRANSFERASE 54 U/L (12-78); ALBUMIN 1.7 G/DL (3.4-5.0); ALBUMIN/GLOBULIN RATIO 0.4 (1.0-2.7); ALKALINE PHOSPHATASE 112 U/L (46-116); ANION GAP 6 mmol/L (5-15); ASPARTATE AMINO TRANSFERASE 34 U/L (15-37); BILIRUBIN,DIRECT 0.2 MG/DL (0.0-0.3); BILIRUBIN,TOTAL 0.7 MG/DL (0.2-1.0); BLOOD UREA NITROGEN 12 mg/dL (7-18); CALCIUM 7.3 MG/DL (8.5-10.1); CARBON DIOXIDE 28 MMOL/L (21-32); CHLORIDE 100 MMOL/L (98-107); CREATININE 0.8 MG/DL (0.55-1.30); POTASSIUM 3.5 MMOL/L (3.5-5.1); SODIUM 134 MMOL/L (136-145)
[2020-06-23] MEDS ORDERED: Heparin 25,000u/D5W 500ml 500 ML IV SCH (04:00)
--- NOTE | 2020-06-23 04:00 | NUR ---
NURSE NOTES: Heparin changed to 17U
--- NOTE | 2020-06-23 07:10 | NUR ---
HAND-OFF: Report given to TIMOTHY Broussard. Endorsed POC.
--- NOTE | 2020-06-23 08:00 | NUR ---
NURSE NOTES: Pt was assessed after receiving change of shift report from Shannon AGUIRRE. Asleep, awakens to voice, oriented x4, bilingual English speaking. Currently on Bipap 18/10, FIO2 100%, O2Sat 90-96%. Bilateral rales on auscultation. Intermittent cough present. Denies any pain/chest discomfort when asked. NSR on threat monitoring analyst. HR 90 with bounding peripheral pulses. Temp 99F axillary, extremities warm to touch. Pt is maintained on Heparin drip current rate, currently 16 units/kg/hour per protocol. Peripheral IV access is present on Left AC#18G and Right AC#20G, both patent/intact. Uses urinal at bedside, output of dark logan/mildly cloudy urine. Abdomen is round, soft, nontender to touch with hypoactive bowel sounds. HOB at high olivo's, bed locked, in lowest position, three side rails up and call light is placed within easy reach. Will continue to monitor pt and follow plan of care per MD orders and protocol.
--- NOTE | 2020-06-23 08:15 | Infectious Diseases Prog Note ---
Assessment/Plan Assessment/Plan IMPRESSION: 1. Sepsis with tachycardia, tachypnea and leukocytosis. 2. COVID-19 pneumonia. 3. Pulmonary emboli. 4. Hypoxic respiratory failure, acidosis. 5. Elevated troponin. RECOMMENDATION: Continue dexamethasone, Continue ceftriaxone & Zithromax Will finish Remdesivir course today Subjective ROS Limited/Unobtainable: Yes Allergies: Coded Allergies: No Known Allergies (Unverified , 06/18/20) Objective Last 24 Hour Vital Signs Date Time Temp Pulse Resp B/P (MAP) Pulse Ox O2 Delivery O2 Flow Rate FiO2 06/23/20 07:00 86 32 105/60 (75) 90 06/23/20 06:00 99.6 86 34 111/62 (78) 92 06/23/20 05:00 86 35 99/59 (72) 89 06/23/20 04:00 Non-Rebreather Bi-pap Non-Rebreather 06/23/20 04:00 85 06/23/20 04:00 85 33 115/70 (85) 90 06/23/20 03:00 92 33 122/66 (84) 92 06/23/20 02:59 83 34 91 100 06/23/20 02:00 89 32 111/60 (77) 88 06/23/20 01:00 91 32 105/61 (76) 89 06/23/20 00:00 Non-Rebreather Bi-pap Non-Rebreather 06/23/20 00:00 99.6 93 37 117/68 (84) 89 06/22/20 23:31 88 34 90 100 06/22/20 23:00 93 39 123/65 (84) 90 06/22/20 22:00 89 35 114/64 (81) 91 06/22/20 21:00 15.0 100 06/22/20 21:00 90 37 125/76 (92) 92 06/22/20 20:00 99.8 88 35 123/71 (88) 90 06/22/20 20:00 88 06/22/20 20:00 Non-Rebreather Bi-pap Non-Rebreather 06/22/20 19:39 91 Bi-Pap 100 06/22/20 19:38 85 38 91 100 06/22/20 19:00 86 35 123/69 (87) 90 06/22/20 18:00 92 35 120/77 (91) 86 06/22/20 17:00 84 32 126/71 (89) 92 06/22/20 16:00 98.9 92 35 120/71 (87) 91 06/22/20 16:00 Non-Rebreather Bi-pap Non-Rebreather 06/22/20 16:00 82 06/22/20 15:32 92 42 90 100 06/22/20 15:00 94 36 116/69 (85) 92 06/22/20 14:00 87 29 131/82 (98) 92 06/22/20 13:00 85 33 125/73 (90) 93 06/22/20 12:00 Non-Rebreather Bi-pap Non-Rebreather 06/22/20 12:00 99.0 78 32 133/76 (95) 92 06/22/20 12:00 80 06/22/20 11:04 90 33 92 100 06/22/20 11:00 76 30 126/73 (90) 92 06/22/20 10:00 78 29 124/84 (97) 98 06/22/20 09:00 75 29 127/80 (96) 98 Height (Feet): 5 Height (Inches): 4.00 Weight (Pounds): 146 HEENT: mucous membranes moist Respiratory/Chest: other - on BIPAP, SLS3=849% Cardiovascular: normal rate Abdomen: soft, non tender Extremities: no edema Neurologic/Psychiatric: alert, responsive Laboratory Tests Test 06/22/20 08:43 06/22/20 12:30 06/22/20 19:40 06/23/20 03:10 Arterial Blood pH 7.498 (7.350-7.450) Arterial Blood Partial Pressure CO2 35.6 mmHg (35.0-45.0) Arterial Blood Partial Pressure O2 66.0 mmHg (75.0-100.0) L Arterial Blood HCO3 27.0 mmol/L (22.0-26.0) H Arterial Blood Oxygen Saturation 92.9 % (95-100) L Arterial Blood Base Excess 4.0 (-2-2) H Roshan Test Positive Activated Partial Thromboplast Time 58 SEC (23-33) H 128 SEC (23-33) H 100 SEC (23-33) H White Blood Count 14.0 K/UL (4.8-10.8) H Red Blood Count 4.44 M/UL (4.70-6.10) L Hemoglobin 14.1 G/DL (14.2-18.0) L Hematocrit 37.1 % (42.0-52.0) L Mean Corpuscular Volume 83 FL (80-99) Mean Corpuscular Hemoglobin 31.6 PG (27.0-31.0) H Mean Corpuscular Hemoglobin Concent 37.9 G/DL (32.0-36.0) H Red Cell Distribution Width 12.6 % (11.6-14.8) Platelet Count 254 K/UL (150-450) Mean Platelet Volume 7.6 FL (6.5-10.1) Neutrophils (%) (Auto) % (45.0-75.0) Lymphocytes (%) (Auto) % (20.0-45.0) Monocytes (%) (Auto) % (1.0-10.0) Eosinophils (%) (Auto) % (0.0-3.0) Basophils (%) (Auto) % (0.0-2.0) Sodium Level 134 MMOL/L (136-145) L Potassium Level 3.5 MMOL/L (3.5-5.1) Chloride Level 100 MMOL/L (98-107) Carbon Dioxide Level 28 MMOL/L (21-32) Anion Gap 6 mmol/L (5-15) Blood Urea Nitrogen 12 mg/dL (7-18) Creatinine 0.8 MG/DL (0.55-1.30) Estimat Glomerular Filtration Rate > 60 mL/min (>60) Glucose Level 147 MG/DL (74-106) H Calcium Level 7.3 MG/DL (8.5-10.1) L Total Bilirubin 0.7 MG/DL (0.2-1.0) Direct Bilirubin 0.2 MG/DL (0.0-0.3) Aspartate Amino Transf (AST/SGOT) 34 U/L (15-37) Alanine Aminotransferase (ALT/SGPT) 54 U/L (12-78) Alkaline Phosphatase 112 U/L (46-116) Total Protein 6.2 G/DL (6.4-8.2) L Albumin 1.7 G/DL (3.4-5.0) L Globulin 4.5 g/dL Albumin/Globulin Ratio 0.4 (1.0-2.7) L Current Medications Medications (Trade) Dose Ordered Sig/Yoselin Route PRN Reason Start Time Stop Time Status Last Admin Dose Admin Acetaminophen (Tylenol) 650 mg Q6H PRN ORAL For Pain 06/18/20 22:00 07/18/20 21:59 Aspirin (ASA) 81 mg DAILY ORAL 06/20/20 09:00 08/04/20 08:59 06/22/20 09:04 Azithromycin 500 mg/Dextrose 275 ml @ 275 mls/hr Q24HRS IV 06/19/20 16:00 06/25/20 16:59 06/22/20 15:16 Ceftriaxone Sodium 1 gm/ Dextrose 55 ml @ 110 mls/hr Q24H IVPB 06/19/20 17:00 06/26/20 16:59 06/22/20 17:32 Dexamethasone Sodium Phosphate (Decadron 10mg/ ml Inj) 6 mg DAILY IV 06/19/20 09:00 06/28/20 09:01 06/22/20 09:04 Heparin Sodium/ Dextrose 500 ml @ 23.224 mls/ hr ADJUST PER PROTOCOL IV 06/23/20 04:00 07/23/20 03:59 06/23/20 04:00 Ondansetron HCl (Zofran) 4 mg Q6H PRN IVP Nausea & Vomiting 06/18/20 22:00 07/18/20 21:59 Pantoprazole (Protonix) 40 mg DAILY IVP 06/20/20 09:00 07/20/20 08:59 06/22/20 09:04 Remdesivir 100 mg/ Sodium Chloride 250 ml @ 250 mls/hr Q24H IV 06/20/20 16:00 06/23/20 16:59 06/22/20 16:20 Arturo Dudley MD Jun 23, 2020 08:15
[2020-06-23] MEDS: Pantoprazole Inj IVP SCH (08:27)
[2020-06-23] MEDS: Aspirin Baby 81mg ORAL SCH (08:27)
[2020-06-23] MEDS: dexAMETHasone 10mg/ml Inj IV SCH (08:27)
--- NOTE | 2020-06-23 08:27 | NUR ---
CASE MANAGEMENT:REVIEW 06/23/20 SI: COVID PNA. PULMONARY EMBOLI 99.6 86 34 105/60 90% ON BIPAP W/100% FIO2 WBC+14.9 CA-7.3 PTT+100 IS: HEPARIN GTT IV REMDESIVIR Q24 (10/28) IV ROCEPHIN Q24 IV AZITHROMYCIN Q24 IV DECADRON Q24 ASA PO QD : ICU STATUS DCP: FROM HOME
--- NOTE | 2020-06-23 10:00 | NUR ---
NURSE NOTES: AM meds were administered. Gown/bed linens were changed. Bipap was removed from face and oral care provided. Pt was repositioned for comfort. telegraph repeater technician at bedside to draw timed PTT. VS remain stable.
--- NOTE | 2020-06-23 10:41 | NUR ---
RD ASSESSMENT & RECOMMENDATIONS SEE CARE ACTIVITY FOR COMPLETE ASSESSMENT DAILY ESTIMATED NEEDS: Needs based on pulmonary 61kg abw 25-30 kcals/kg 3128-6499 total kcals 1-1.5 g protein/kg 61-92 g total protein 25-30 mL/kg 1645-2516 total fluid mLs NUTRITION DIAGNOSIS: Predicted poor po intake r/t respiratory status/ bipap use as evidenced by pt is covid ++, on bipap, desats when off device, unable to tolerate po intake. CURRENT DIET: CLD-> unable to tolerate on bipap PO DIET RECOMMENDATIONS: rec VIOLIN MAK[employer] HAND eval for diet->Regular diet ENTERAL NUTRITION RECOMMENDATIONS: Consult RD for non-oral TF recs if part of POC. ADDITIONAL RECOMMENDATIONS: 1) Pt unable to tolerate oral po, consider non oral feeds as medically able 2) On decadron w/ elev BG, rec niss w/ po intake 3) Check HgA1C 4) VI[employer]IN MAK[employer] HAND eval for appropriate texture
--- NOTE | 2020-06-23 11:05 | NUR ---
NEWSPAPER INSERTER NOTE PT is covid positive and is currently on bipap. SW spoke w/ pt's , Jeanine Posada [phone] and obtained information. Pt resides w/ family at [address] [place] [address]. Pt has one 15 y/o daughter. 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 Pt is ambulatory w/o DME and independent w/ ADLs. PT does not use tobacco/ETOH/substance. Pt does not have mental health issue. PT does not have AD/POA. PT remains full code.
[2020-06-23] MEDS ORDERED: Heparin 5000 units/ml inj IV SCH (11:20)
--- NOTE | 2020-06-23 12:00 | NUR ---
NURSE NOTES: Heparin drip was titrated up to 18units/kg/hour according to last PTT result of 59, per protocol. Pt's current weight was measured using the bedscale and reported to Zakia/pharmacist this morning around 0900. No signs of bleeding noted. VS remain stable. Dr Reyes is at the nurse's station and was updated on pt's current status. Per , contacted RT at switch pt to Venturi mask 12L. Addendum: 06/23/20 at 1652 by EFRAIN EASTMAN RN Per Dr Reyes, pt is to remain on Heparin drip at this time.
[2020-06-23] MEDS: Heparin 25,000u/D5W 500ml 500 ML IV SCH (12:13)
--- NOTE | 2020-06-23 12:30 | NUR ---
RESPIRATORY NOTES Per Eric MAY's verbal order, PT placed on venturi mask - 12L, 50%. PT quickly desaturated to ~40%. PT then placed back onto bipap. RN Aarti fung. Will continue to monitor.
--- NOTE | 2020-06-23 13:01 | Pulmonology Progress Note ---
Subjective ROS Limited/Unobtainable: Yes Interval Events: Looking and feeling better. On NRBM Constitutional: Reports: no symptoms HEENT: Repors: no symptoms Respiratory: Reports: no symptoms Cardiovascular: Reports: no symptoms Gastrointestinal/Abdominal: Reports: no symptoms Allergies: Coded Allergies: No Known Allergies (Unverified , 06/18/20) Objective Last 24 Hour Vital Signs Date Time Temp Pulse Resp B/P (MAP) Pulse Ox O2 Delivery O2 Flow Rate FiO2 06/23/20 12:00 70 29 120/69 (86) 100 06/23/20 12:00 Non-Rebreather Bi-pap Non-Rebreather 06/23/20 12:00 68 06/23/20 11:00 71 28 127/70 (89) 95 06/23/20 10:00 74 27 116/67 (83) 95 06/23/20 10:00 71 27 121/69 (86) 95 06/23/20 09:00 88 34 125/75 (92) 95 06/23/20 08:00 80 06/23/20 08:00 78 30 114/62 (79) 91 06/23/20 08:00 Non-Rebreather Bi-pap Non-Rebreather 06/23/20 07:20 86 40 93 100 06/23/20 07:20 93 Bi-Pap 100 06/23/20 07:00 86 32 105/60 (75) 90 06/23/20 06:00 99.6 86 34 111/62 (78) 92 06/23/20 05:00 86 35 99/59 (72) 89 06/23/20 04:00 Non-Rebreather Bi-pap Non-Rebreather 06/23/20 04:00 85 06/23/20 04:00 85 33 115/70 (85) 90 06/23/20 03:00 92 33 122/66 (84) 92 06/23/20 02:59 83 34 91 100 06/23/20 02:00 89 32 111/60 (77) 88 06/23/20 01:00 91 32 105/61 (76) 89 06/23/20 00:00 Non-Rebreather Bi-pap Non-Rebreather 06/23/20 00:00 99.6 93 37 117/68 (84) 89 06/22/20 23:31 88 34 90 100 06/22/20 23:00 93 39 123/65 (84) 90 06/22/20 22:00 89 35 114/64 (81) 91 06/22/20 21:00 15.0 100 06/22/20 21:00 90 37 125/76 (92) 92 06/22/20 20:00 99.8 88 35 123/71 (88) 90 06/22/20 20:00 88 06/22/20 20:00 Non-Rebreather Bi-pap Non-Rebreather 06/22/20 19:39 91 Bi-Pap 100 06/22/20 19:38 85 38 91 100 06/22/20 19:00 86 35 123/69 (87) 90 06/22/20 18:00 92 35 120/77 (91) 86 06/22/20 17:00 84 32 126/71 (89) 92 06/22/20 16:00 98.9 92 35 120/71 (87) 91 06/22/20 16:00 Non-Rebreather Bi-pap Non-Rebreather 06/22/20 16:00 82 06/22/20 15:32 92 42 90 100 06/22/20 15:00 94 36 116/69 (85) 92 06/22/20 14:00 87 29 131/82 (98) 92 Intake and Output 06/22/20 06/23/20 19:00 07:00 Intake Total 210.4721 ml 836.916 ml Output Total 600 ml 400 ml Balance -389.5279 ml 436.916 ml IV Total 210.4721 ml 836.916 ml Output Urine Total 600 ml 400 ml General Appearance: no acute distress HEENT: normocephalic Respiratory: chest wall non-tender, lungs clear Cardiovascular: normal peripheral pulses Abdomen: normal bowel sounds Extremities: no cyanosis Laboratory Tests 06/22/20 19:40: Activated Partial Thromboplast Time 128H 06/23/20 03:10: Activated Partial Thromboplast Time 100H, White Blood Count 14.0H, Red Blood Count 4.44L, Hemoglobin 14.1L, Hematocrit 37.1L, Mean Corpuscular Volume 83, Mean Corpuscular Hemoglobin 31.6H, Mean Corpuscular Hemoglobin Concent 37.9H, Red Cell Distribution Width 12.6, Platelet Count 254, Mean Platelet Volume 7.6, Neutrophils (%) (Auto) , Lymphocytes (%) (Auto) , Monocytes (%) (Auto) , Eosino phils (%) (Auto) , Basophils (%) (Auto) , Sodium Level 134L, Potassium Level 3.5, Chloride Level 100, Carbon Dioxide Level 28, Anion Gap 6, Blood Urea Nitrogen 12, Creatinine 0.8, Estimat Glomerular Filtration Rate > 60, Glucose Level 147H, Calcium Level 7.3L, Total Bilirubin 0.7, Direct Bilirubin 0.2, Aspartate Amino Transf (AST/SGOT) 34, Alanine Aminotransferase (ALT/SGPT) 54, Alkaline Phosphatase 112, Total Protein 6.2L, Albumin 1.7L, Globulin 4.5, Albumin/Globulin Ratio 0.4L 06/23/20 10:20: Activated Partial Thromboplast Time 59H Current Medications Medications (Trade) Dose Ordered Sig/Yoselin Route PRN Reason Start Time Stop Time Status Last Admin Dose Admin Acetaminophen (Tylenol) 650 mg Q6H PRN ORAL For Pain 06/18/20 22:00 07/18/20 21:59 Aspirin (ASA) 81 mg DAILY ORAL 06/20/20 09:00 08/04/20 08:59 06/23/20 08:27 Azithromycin 500 mg/Dextrose 275 ml @ 275 mls/hr Q24HRS IV 06/19/20 16:00 06/25/20 16:59 06/22/20 15:16 Ceftriaxone Sodium 1 gm/ Dextrose 55 ml @ 110 mls/hr Q24H IVPB 06/19/20 17:00 06/26/20 16:59 06/22/20 17:32 Dexamethasone Sodium Phosphate (Decadron 10mg/ ml Inj) 6 mg DAILY IV 06/19/20 09:00 06/28/20 09:01 06/23/20 08:27 Heparin Sodium (Porcine) (Heparin 5000 units/ml) 2,500 units ONCE IV 06/23/20 11:20 06/23/20 13:30 06/23/20 11:28 Heparin Sodium/ Dextrose 500 ml @ 23.04 mls/ hr ADJUST PER PROTOCOL IV 06/23/20 11:21 07/23/20 11:20 06/23/20 12:13 Ondansetron HCl (Zofran) 4 mg Q6H PRN IVP Nausea & Vomiting 06/18/20 22:00 07/18/20 21:59 Pantoprazole (Protonix) 40 mg DAILY IVP 06/20/20 09:00 07/20/20 08:59 06/23/20 08:27 Remdesivir 100 mg/ Sodium Chloride 250 ml @ 250 mls/hr Q24H IV 06/20/20 16:00 06/23/20 16:59 06/22/20 16:20 Assessment/Plan Assessment/Plan IMPRESSION: 1. COVID-19 pneumonia. 2. Respiratory failure. 3. Pulmonary embolism. 4. Troponin leak. DISCUSSION: Continue Decadron, Continue heparin infusion, Continue broad-spectrum antibiotics. Seen by ID for remdesivir. Maintain on nonrebreather mask Will attempt venti-mask CXR unchanged ABG better Tea Peterson Omar Syed MD Jun 23, 2020 13:00
--- NOTE | 2020-06-23 14:00 | NUR ---
NURSE NOTES: Pt remains on Heparin drip, currently 18units/kg/hour, next times PTT to be drawn at 1800. No signs of bleeding noted. On Bipap 18/10, FIO2 100%, O2Sat 96-98%. Attempted Venturi mask 12L per Dr. Reyes's order earlier, however pt was unable to tolerate, desaturated to 50% and became tachycardic and tachypneic. Pt was placed back on Bipap settings.
--- NOTE | 2020-06-23 16:15 | NUR ---
NURSE NOTES: Pt remains afebrile and with stable VS while on Bipap 18/10, FIO2 100%. Heparin drip is maintained at rate of 18units/kg/hour, per last PTT result/protocol. No signs of bleeding noted at this time. Pt was repositioned in bed. Uses urinal at bedside. Gown/chucks dry/clean.
--- NOTE | 2020-06-23 18:00 | NUR ---
NURSE NOTES: registered veterinary technician is at bedside for timed-PTT blood-draw.
[2020-06-23] MEDS: Azithromycin 500 MG in D5W 275 ML IV SCH (18:34)
[2020-06-23] MEDS: Maintenance Dose:Remdesivir 100mg/NS 230ml x 4 Doses IV SCH ×2 (18:34)
[2020-06-23] MEDS: cefTRIAXone 1 GM in D5W 55 ML IVPB SCH (18:34)
--- NOTE | 2020-06-23 19:00 | NUR ---
NURSE NOTES: Pharmacy contacted the nurse's station; per protocol, Heparin drip will be maintained at same rate according to last PTT result. Next PTT to be drawn tomorrow AM.
--- NOTE | 2020-06-23 19:10 | NUR ---
NURSE HAND-OFF REPORT: Latest Vital Signs: Temperature 98.4 , Pulse 68 , B/P 122 /75 , Respiratory Rate 28 , O2 SAT 98 , Bi-pap with settings 18/10, FIO2 100%. Vital Sign Comment: Pt remains on Heparin drip per order, current rate of 18units/kg/hour according to last PTT result/protocol. Next PTT to be drawn tomorrow AM. EKG Rhythm: Sinus Rhythm Rhythm change?: N MD Notified?: - MD Response: Latest Mcdowell Fall Score: 35 Fall Risk: Medium Risk Safety Measures: Call light Within Reach, Bed Alarm Zone 2, Side Rails Side Rails x3, Bed position Low and Locked. Fall Precautions: Yellow Socks Yellow Gown Door Sign Patient Fall Education Report given to Shannon AGUIRRE. Endorsed plan of care.
--- NOTE | 2020-06-23 19:15 | NUR ---
NURSE NOTES: Received report from Aarti AGUIRRE. Pt is COVID POSITIVE, AOx4, Bilingual Hungarian/Cape Verdean speaking. Currently on BiPAP 18L inspiratory/10L expiratory 100%, O2-Sat 99-100%. Per AM shift, Dr. Ramirez ordered Ventri mask 12L, Pt de-sat and back to BiPAP Bilateral rales on auscultation. Intermittent cough present. Denies any pain or chest discomfort when asked. NSR on classroom monitor. Pt is maintained on Heparin drip current rate 18units/kg/hour per protocol. Peripheral IV access is present on Left AC18G and Right AC 20G, both patent/intact. Uses urinal at bedside, output of dark logan/mildly cloudy urine. Abdomen is round, soft, nontender to touch with hypoactive bowel sounds. NextAPTT ordered 06/24 @0400 Safety measures observed and no acute distress noted. Will continue to monitor.
--- NOTE | 2020-06-23 22:38 | Cardiology Progress Note ---
Subjective DATE OF SERVICE: Jun 23, 2020 Remains on non-rebreather mask requiring high flow oxygen. Labs/ABG noted Monitor: sinus rhythm with rare ectopics 2D Echo - normal LVEF, no signs RV strain, normal PA pressure of 30mm Hg Objective Last 24 Hour Vital Signs Date Time Temp Pulse Resp B/P (MAP) Pulse Ox O2 Delivery O2 Flow Rate FiO2 06/23/20 22:22 61 27 96 100 06/23/20 19:24 68 28 98 100 06/23/20 19:24 98 Bi-Pap 100 06/23/20 19:00 98.4 66 27 122/75 (91) 95 06/23/20 18:00 62 24 120/70 (87) 91 06/23/20 17:00 57 28 117/67 (84) 96 06/23/20 16:00 Non-Rebreather Bi-pap Non-Rebreather 06/23/20 16:00 64 06/23/20 16:00 61 27 113/63 (80) 94 06/23/20 15:05 62 24 95 100 06/23/20 15:00 60 24 112/59 (76) 96 06/23/20 14:00 62 26 113/78 (90) 97 06/23/20 13:00 99.0 62 28 115/69 (84) 96 06/23/20 12:00 70 29 120/69 (86) 100 06/23/20 12:00 Non-Rebreather Bi-pap Non-Rebreather 06/23/20 12:00 68 06/23/20 11:05 68 25 100 100 06/23/20 11:00 71 28 127/70 (89) 95 06/23/20 10:00 74 27 116/67 (83) 95 06/23/20 10:00 71 27 121/69 (86) 95 06/23/20 09:00 88 34 125/75 (92) 95 06/23/20 08:00 80 06/23/20 08:00 78 30 114/62 (79) 91 06/23/20 08:00 Non-Rebreather Bi-pap Non-Rebreather 06/23/20 07:20 86 40 93 100 06/23/20 07:20 93 Bi-Pap 100 06/23/20 07:00 86 32 105/60 (75) 90 06/23/20 06:00 99.6 86 34 111/62 (78) 92 06/23/20 05:00 86 35 99/59 (72) 89 06/23/20 04:00 Non-Rebreather Bi-pap Non-Rebreather 06/23/20 04:00 85 06/23/20 04:00 85 33 115/70 (85) 90 06/23/20 03:00 92 33 122/66 (84) 92 06/23/20 02:59 83 34 91 100 06/23/20 02:00 89 32 111/60 (77) 88 06/23/20 01:00 91 32 105/61 (76) 89 06/23/20 00:00 Non-Rebreather Bi-pap Non-Rebreather 06/23/20 00:00 99.6 93 37 117/68 (84) 89 06/22/20 23:31 88 34 90 100 06/22/20 23:00 93 39 123/65 (84) 90 ROS: unchanged from 06/19/20 HEENT: other - high flow mask RHYTHM: NSR LUNGS: bilat. rhonchi and rales CARDIAC: normal rate, regular rhythm, normal S1 and S2 ABDOMEN: normal bowel sounds, soft, distended EXTREMITIES: normal range of motion, non-tender, trace edema Laboratory Tests Test 06/23/20 03:10 06/23/20 10:20 06/23/20 18:10 White Blood Count 14.0 K/UL (4.8-10.8) H Red Blood Count 4.44 M/UL (4.70-6.10) L Hemoglobin 14.1 G/DL (14.2-18.0) L Hematocrit 37.1 % (42.0-52.0) L Mean Corpuscular Volume 83 FL (80-99) Mean Corpuscular Hemoglobin 31.6 PG (27.0-31.0) H Mean Corpuscular Hemoglobin Concent 37.9 G/DL (32.0-36.0) H Red Cell Distribution Width 12.6 % (11.6-14.8) Platelet Count 254 K/UL (150-450) Mean Platelet Volume 7.6 FL (6.5-10.1) Neutrophils (%) (Auto) % (45.0-75.0) Lymphocytes (%) (Auto) % (20.0-45.0) Monocytes (%) (Auto) % (1.0-10.0) Eosinophils (%) (Auto) % (0.0-3.0) Basophils (%) (Auto) % (0.0-2.0) Activated Partial Thromboplast Time 100 SEC (23-33) H 59 SEC (23-33) H 80 SEC (23-33) H Sodium Level 134 MMOL/L (136-145) L Potassium Level 3.5 MMOL/L (3.5-5.1) Chloride Level 100 MMOL/L (98-107) Carbon Dioxide Level 28 MMOL/L (21-32) Anion Gap 6 mmol/L (5-15) Blood Urea Nitrogen 12 mg/dL (7-18) Creatinine 0.8 MG/DL (0.55-1.30) Estimat Glomerular Filtration Rate > 60 mL/min (>60) Glucose Level 147 MG/DL (74-106) H Calcium Level 7.3 MG/DL (8.5-10.1) L Total Bilirubin 0.7 MG/DL (0.2-1.0) Direct Bilirubin 0.2 MG/DL (0.0-0.3) Aspartate Amino Transf (AST/SGOT) 34 U/L (15-37) Alanine Aminotransferase (ALT/SGPT) 54 U/L (12-78) Alkaline Phosphatase 112 U/L (46-116) Total Protein 6.2 G/DL (6.4-8.2) L Albumin 1.7 G/DL (3.4-5.0) L Globulin 4.5 g/dL Albumin/Globulin Ratio 0.4 (1.0-2.7) L Assessment/Plan Assessment/Plan COVID 19 PNA Hypoxia Ac pulmonary embolism Acute coronary syndrome/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
[2020-06-24] VITALS (27 sets, daily range): BP systolic 109–144; BP diastolic 61–105
--- NOTE | 2020-06-24 | NUR ---
NURSE NOTES: Pt is COVID POSITIVE, AOx4, Bilingual Yoruba/Nicaraguan speaking. Remains BiPAP 18L inspiratory/10L expiratory 100%, O2-Sat 99-100%. Bilateral rales on auscultation. Intermittent cough present. Denies any pain or chest discomfort when asked. NSR on monitoring manager. Pt is maintained on Heparin drip current rate 18units/kg/hour per protocol. Peripheral IV access is present on Left AC18G and Right AC 20G, both patent/intact. Uses urinal at bedside, output of dark logan/mildly cloudy urine. Abdomen is round, soft, nontender to touch with hypoactive bowel sounds. Next APTT ordered 06/24 @0400 Safety measures observed and no acute distress noted. Will continue to monitor.
--- NOTE | 2020-06-24 04:00 | NUR ---
NURSE NOTES: Afebrile and VSS.
--- NOTE | 2020-06-24 05:08 | Cardiology Progress Note ---
Subjective DATE OF SERVICE: Jun 24, 2020 Remains on non-rebreather mask requiring high flow oxygen. Still in ICU Monitor: sinus rhythm with rare ectopics 2D Echo - normal LVEF, no signs RV strain, normal PA pressure of 30mm Hg Objective Last 24 Hour Vital Signs Date Time Temp Pulse Resp B/P (MAP) Pulse Ox O2 Delivery O2 Flow Rate FiO2 06/24/20 04:00 90 06/24/20 04:00 49 21 111/68 (82) 97 06/24/20 04:00 Non-Rebreather Bi-pap Non-Rebreather 06/24/20 03:30 49 22 114/73 (87) 94 06/24/20 03:23 58 24 95 100 06/24/20 03:00 66 23 114/73 (87) 83 06/24/20 02:30 69 23 136/70 (92) 82 06/24/20 02:00 47 22 136/70 (92) 96 06/24/20 01:00 46 22 120/65 (83) 96 06/24/20 00:58 48 21 124/69 (87) 97 06/24/20 00:00 49 23 120/68 (85) 94 06/24/20 00:00 Non-Rebreather Bi-pap Non-Rebreather 06/24/20 00:00 49 06/23/20 23:00 52 20 140/73 (95) 96 06/23/20 22:22 61 27 96 100 06/23/20 22:00 56 21 124/76 (92) 96 06/23/20 21:00 61 26 121/70 (87) 93 06/23/20 21:00 15.0 100 06/23/20 20:00 64 25 132/83 (99) 95 06/23/20 20:00 Non-Rebreather Bi-pap Non-Rebreather 06/23/20 19:24 68 28 98 100 06/23/20 19:24 98 Bi-Pap 100 06/23/20 19:00 98.4 66 27 122/75 (91) 95 06/23/20 18:00 62 24 120/70 (87) 91 06/23/20 17:00 57 28 117/67 (84) 96 06/23/20 16:00 Non-Rebreather Bi-pap Non-Rebreather 06/23/20 16:00 64 06/23/20 16:00 61 27 113/63 (80) 94 06/23/20 15:05 62 24 95 100 06/23/20 15:00 60 24 112/59 (76) 96 06/23/20 14:00 62 26 113/78 (90) 97 06/23/20 13:00 99.0 62 28 115/69 (84) 96 06/23/20 12:00 70 29 120/69 (86) 100 06/23/20 12:00 Non-Rebreather Bi-pap Non-Rebreather 06/23/20 12:00 68 06/23/20 11:05 68 25 100 100 06/23/20 11:00 71 28 127/70 (89) 95 06/23/20 10:00 74 27 116/67 (83) 95 06/23/20 10:00 71 27 121/69 (86) 95 06/23/20 09:00 88 34 125/75 (92) 95 06/23/20 08:00 80 06/23/20 08:00 78 30 114/62 (79) 91 06/23/20 08:00 Non-Rebreather Bi-pap Non-Rebreather 06/23/20 07:20 86 40 93 100 06/23/20 07:20 93 Bi-Pap 100 06/23/20 07:00 86 32 105/60 (75) 90 06/23/20 06:00 99.6 86 34 111/62 (78) 92 ROS: unchanged from 06/19/20 HEENT: other - high flow mask RHYTHM: NSR LUNGS: bilat. 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 Full anticoagulation Monitor for sustained atrial arrhythmias Replace lytes as needed Insulin cov'g by Aden Meléndez MD Jun 24, 2020 05:08
--- NOTE | 2020-06-24 06:00 | NUR ---
NURSE NOTES: Received a call from [facility]. APTT 67, Heparin gtt will stay as is, 18U. next APTT will be 0400. The order is already IN.
--- NOTE | 2020-06-24 07:15 | NUR ---
NURSE NOTES: Report received from Shannon Baird RN. Patient is alert and oriented x4. SB on monitoring specialist in HR 50's. Afebrile. Axillary temp 98.7. Able to turn himself. Patient is on Bi-pap 18/10, 100%. O2 sat 92-95%. RR 30's. Urinal at bedside. Fabi orange colored urine noted. IV to right AC G20 and left AC G 18 patent and asymptomatic. Patient is on Heparin drip at 18 units/kg/hr. Bed in lowest position. Side rails up x3. Call light within reach. Will resume plan fo care.
--- NOTE | 2020-06-24 08:00 | NUR ---
NURSE NOTES: Patient complaint of dry mouth. Scant amount of yellow thick secretion noted and suctioned from mouth. Good oral care given. Patient had sips of water. Patient is on Bi-pap 18/10, 100%. O2 sat 92-95%. RR 30's. Will continue to monitor.
[2020-06-24] MEDS: dexAMETHasone 10mg/ml Inj IV SCH (08:50)
[2020-06-24] MEDS: Pantoprazole Inj IVP SCH (08:50)
[2020-06-24] MEDS: Aspirin Baby 81mg ORAL SCH (08:51)
--- NOTE | 2020-06-24 10:38 | Pulmonology Progress Note ---
Subjective ROS Limited/Unobtainable: Yes Interval Events: Looking and feeling better. On NRBM Constitutional: Reports: no symptoms HEENT: Repors: no symptoms Respiratory: Reports: no symptoms Cardiovascular: Reports: no symptoms Gastrointestinal/Abdominal: Reports: no symptoms Allergies: Coded Allergies: No Known Allergies (Unverified , 06/18/20) Objective Last 24 Hour Vital Signs Date Time Temp Pulse Resp B/P (MAP) Pulse Ox O2 Delivery O2 Flow Rate FiO2 06/24/20 09:00 70 30 141/85 (103) 95 06/24/20 08:00 98.7 56 24 116/61 (79) 95 06/24/20 07:00 55 24 115/70 (85) 92 06/24/20 06:50 95 Bi-Pap 100 06/24/20 06:50 58 34 95 100 06/24/20 06:00 98.4 60 24 117/70 (86) 94 06/24/20 05:00 57 25 144/79 (100) 96 06/24/20 04:00 90 06/24/20 04:00 49 21 111/68 (82) 97 06/24/20 04:00 Non-Rebreather Bi-pap Non-Rebreather 06/24/20 03:30 49 22 114/73 (87) 94 06/24/20 03:23 58 24 95 100 06/24/20 03:00 66 23 114/73 (87) 83 06/24/20 02:30 69 23 136/70 (92) 82 06/24/20 02:00 47 22 136/70 (92) 96 06/24/20 01:00 46 22 120/65 (83) 96 06/24/20 00:58 48 21 124/69 (87) 97 06/24/20 00:00 98.2 49 23 120/68 (85) 94 06/24/20 00:00 Non-Rebreather Bi-pap Non-Rebreather 06/24/20 00:00 49 06/23/20 23:00 52 20 140/73 (95) 96 06/23/20 22:22 61 27 96 100 06/23/20 22:00 56 21 124/76 (92) 96 06/23/20 21:00 61 26 121/70 (87) 93 06/23/20 21:00 15.0 100 06/23/20 20:00 64 25 132/83 (99) 95 06/23/20 20:00 Non-Rebreather Bi-pap Non-Rebreather 06/23/20 19:24 68 28 98 100 06/23/20 19:24 98 Bi-Pap 100 06/23/20 19:00 98.4 66 27 122/75 (91) 95 06/23/20 18:00 62 24 120/70 (87) 91 06/23/20 17:00 57 28 117/67 (84) 96 06/23/20 16:00 Non-Rebreather Bi-pap Non-Rebreather 06/23/20 16:00 64 06/23/20 16:00 61 27 113/63 (80) 94 06/23/20 15:05 62 24 95 100 06/23/20 15:00 60 24 112/59 (76) 96 06/23/20 14:00 62 26 113/78 (90) 97 06/23/20 13:00 99.0 62 28 115/69 (84) 96 06/23/20 12:00 70 29 120/69 (86) 100 06/23/20 12:00 Non-Rebreather Bi-pap Non-Rebreather 06/23/20 12:00 68 06/23/20 11:05 68 25 100 100 06/23/20 11:00 71 28 127/70 (89) 95 Intake and Output 06/23/20 06/24/20 19:00 07:00 Intake Total 912.440 ml 253.44 ml Output Total 650 ml 200 ml Balance 262.440 ml 53.44 ml IV Total 912.440 ml 253.44 ml Output Urine Total 650 ml 200 ml # Voids 3 General Appearance: no acute distress HEENT: normocephalic Respiratory: chest wall non-tender, lungs clear Cardiovascular: normal peripheral pulses Abdomen: normal bowel sounds Extremities: no cyanosis Laboratory Tests 06/23/20 18:10: Activated Partial Thromboplast Time 80H 06/24/20 05:05: Activated Partial Thromboplast Time 67H Current Medications Medications (Trade) Dose Ordered Sig/Yoselin Route PRN Reason Start Time Stop Time Status Last Admin Dose Admin Acetaminophen (Tylenol) 650 mg Q6H PRN ORAL For Pain 06/18/20 22:00 07/18/20 21:59 Aspirin (ASA) 81 mg DAILY ORAL 06/20/20 09:00 08/04/20 08:59 06/23/20 08:27 Azithromycin 500 mg/Dextrose 275 ml @ 275 mls/hr Q24HRS IV 06/19/20 16:00 06/25/20 16:59 06/23/20 18:34 Ceftriaxone Sodium 1 gm/ Dextrose 55 ml @ 110 mls/hr Q24H IVPB 06/19/20 17:00 06/26/20 16:59 06/23/20 18:34 Dexamethasone Sodium Phosphate (Decadron 10mg/ ml Inj) 6 mg DAILY IV 06/19/20 09:00 06/28/20 09:01 06/24/20 08:50 Heparin Sodium/ Dextrose 500 ml @ 23.04 mls/ hr ADJUST PER PROTOCOL IV 06/23/20 11:21 07/23/20 11:20 06/23/20 12:13 Ondansetron HCl (Zofran) 4 mg Q6H PRN IVP Nausea & Vomiting 06/18/20 22:00 07/18/20 21:59 Pantoprazole (Protonix) 40 mg DAILY IVP 06/20/20 09:00 07/20/20 08:59 06/24/20 08:50 Assessment/Plan Assessment/Plan IMPRESSION: 1. COVID-19 pneumonia. 2. Respiratory failure. 3. Pulmonary embolism. 4. Troponin leak. DISCUSSION: Continue Decadron, Continue heparin infusion, Continue broad-spectrum antibiotics. Seen by ID for remdesivir. Maintain on nonrebreather mask Attempted venti-mask yesterday.. unsuccessful CXR unchanged ABG better Keep in ICU On clear liquid dirt Tea Peterson Omar Syed MD Jun 24, 2020 10:38
--- NOTE | 2020-06-24 10:50 | NUR ---
NURSE NOTES: Dr Reyes here to see the patient. Updated him with patient's current condition including that there is no lab ordered for today. Awaiting new orders to be entered.
[2020-06-24] MEDS: Heparin 25,000u/D5W 500ml 500 ML IV SCH (10:57)
--- NOTE | 2020-06-24 11:11 | NUR ---
NURSE NOTES: Dr Barlow here to see the patient. Notified her that patient's blood is positive for gram positive cocci in pairs, chains, and and clusters. Dr Barlow stated he is already on broad spectrum antibiotics that covers. No new orders for now. Addendum: 06/24/20 at 1243 by NAVID CONTRERAS RN RN Wrong patient.
--- NOTE | 2020-06-24 11:59 | NUR ---
LINE INSTALLER TROLLEYUNION STEWARD SI; RESP FAILURE,PULMONARY EMBOLI T. 98.7 HR 55 RR 36 B/P 141/83 BIPAP 18/10 FIO2 100% IS: HEPARIN GTT ROCEPHIN IV AZITHROMYCIN IV DECADRON IV ICU STATUS
--- NOTE | 2020-06-24 12:42 | Infectious Diseases Prog Note ---
Assessment/Plan Assessment/Plan antibiotics : ceftriaxone, azithromycin A 1. COVID 19 pneumonia on bipap 100 % Fi O2 with 96 % saturation s/p remdesivir 2. pulmonary embolism 3. respiratory failure P 1. continue dexamethasone 2. continue ceftriaxone, azithromycin 3. continue isolation Subjective ROS Limited/Unobtainable: Yes Allergies: Coded Allergies: No Known Allergies (Unverified , 06/18/20) Objective Last 24 Hour Vital Signs Date Time Temp Pulse Resp B/P (MAP) Pulse Ox O2 Delivery O2 Flow Rate FiO2 06/24/20 12:00 60 06/24/20 11:00 67 36 134/105 (115) 92 06/24/20 10:40 64 28 92 100 06/24/20 10:00 60 24 115/70 (85) 92 06/24/20 09:00 70 30 141/85 (103) 95 06/24/20 08:00 Bi-pap Bi-pap Non-Rebreather 06/24/20 08:00 66 06/24/20 08:00 98.7 56 24 116/61 (79) 95 06/24/20 07:00 55 24 115/70 (85) 92 06/24/20 06:50 95 Bi-Pap 100 06/24/20 06:50 58 34 95 100 06/24/20 06:00 98.4 60 24 117/70 (86) 94 06/24/20 05:00 57 25 144/79 (100) 96 06/24/20 04:00 90 06/24/20 04:00 49 21 111/68 (82) 97 06/24/20 04:00 Non-Rebreather Bi-pap Non-Rebreather 06/24/20 03:30 49 22 114/73 (87) 94 06/24/20 03:23 58 24 95 100 06/24/20 03:00 66 23 114/73 (87) 83 06/24/20 02:30 69 23 136/70 (92) 82 06/24/20 02:00 47 22 136/70 (92) 96 06/24/20 01:00 46 22 120/65 (83) 96 06/24/20 00:58 48 21 124/69 (87) 97 06/24/20 00:00 98.2 49 23 120/68 (85) 94 06/24/20 00:00 Non-Rebreather Bi-pap Non-Rebreather 06/24/20 00:00 49 06/23/20 23:00 52 20 140/73 (95) 96 06/23/20 22:22 61 27 96 100 06/23/20 22:00 56 21 124/76 (92) 96 06/23/20 21:00 61 26 121/70 (87) 93 06/23/20 21:00 15.0 100 06/23/20 20:00 64 25 132/83 (99) 95 06/23/20 20:00 Non-Rebreather Bi-pap Non-Rebreather 06/23/20 19:24 68 28 98 100 06/23/20 19:24 98 Bi-Pap 100 06/23/20 19:00 98.4 66 27 122/75 (91) 95 06/23/20 18:00 62 24 120/70 (87) 91 06/23/20 17:00 57 28 117/67 (84) 96 06/23/20 16:00 Non-Rebreather Bi-pap Non-Rebreather 06/23/20 16:00 64 06/23/20 16:00 61 27 113/63 (80) 94 06/23/20 15:05 62 24 95 100 06/23/20 15:00 60 24 112/59 (76) 96 06/23/20 14:00 62 26 113/78 (90) 97 06/23/20 13:00 99.0 62 28 115/69 (84) 96 Height (Feet): 5 Height (Inches): 4.00 Weight (Pounds): 146 Laboratory Tests Test 06/23/20 18:10 06/24/20 05:05 Activated Partial Thromboplast Time 80 SEC (23-33) H 67 SEC (23-33) H Current Medications Medications (Trade) Dose Ordered Sig/Yoselin Route PRN Reason Start Time Stop Time Status Last Admin Dose Admin Acetaminophen (Tylenol) 650 mg Q6H PRN ORAL For Pain 06/18/20 22:00 07/18/20 21:59 Aspirin (ASA) 81 mg DAILY ORAL 06/20/20 09:00 08/04/20 08:59 06/23/20 08:27 Azithromycin 500 mg/Dextrose 275 ml @ 275 mls/hr Q24HRS IV 06/19/20 16:00 06/25/20 16:59 06/23/20 18:34 Ceftriaxone Sodium 1 gm/ Dextrose 55 ml @ 110 mls/hr Q24H IVPB 06/19/20 17:00 06/26/20 16:59 06/23/20 18:34 Dexamethasone Sodium Phosphate (Decadron 10mg/ ml Inj) 6 mg DAILY IV 06/19/20 09:00 06/28/20 09:01 06/24/20 08:50 Heparin Sodium/ Dextrose 500 ml @ 23.04 mls/ hr ADJUST PER PROTOCOL IV 06/23/20 11:21 07/23/20 11:20 06/24/20 10:57 Ondansetron HCl (Zofran) 4 mg Q6H PRN IVP Nausea & Vomiting 06/18/20 22:00 07/18/20 21:59 Pantoprazole (Protonix) 40 mg DAILY IVP 06/20/20 09:00 07/20/20 08:59 06/24/20 08:50 Swapna Falk MD Jun 24, 2020 12:42
--- NOTE | 2020-06-24 13:30 | NUR ---
NURSE NOTES: Oral care done. Scant amount of clear yellow secretion from mouth noted. Patient is using urinal by himself. Fabi orange colored urine noted. Patient is on Bi-pap 18/10, 100%. O2 sat 92-95%. RR 30's. Will continue to monitor.
--- NOTE | 2020-06-24 14:14 | NUR ---
MONORAIL CRANE OPERATOR NOTES CLINICALS REVIEWED AND FAXED. SPOKE WITH [facility], UPDATES GIVEN.
--- NOTE | 2020-06-24 15:40 | NUR ---
NURSE NOTES: Cleaned patient for leaked urine. Patient can help turn and reposition. Oral care done. Afebrile. Will continue to monitor.
--- NOTE | 2020-06-24 16:04 | NUR ---
CASE MANAGEMENT:INITIAL REVIEW 06/20/20 49 YR OLD MALE FROM HOME CC;DYSPNEA. RESPIRATORY DISTRESS. SI;RESPIRATORY FAILURE. COVID PNEUMONIA. NSTEMI. PULMONARY EMBOLISM. 99.1 143 46 143/67 89% Bi-PAP FIO2 80% WBC 12.5 NA+ 133 K+ 3.0 ANION GAP 22 CR 1.6 BG 304 MAG 2.5 FERRITIN 2037 AST 57 LDH 983 TROP 0.718 CRP 31.0 BNP 162 ALB 2.5 PT 13.4 INR 1.2 D-DIMER >35.20 UA+ PROTEIN, KETONES, GLUCOSE, BLOOD, UROBILINOGEN, LEUKOCYTE ESTERASE ABG+ pH 7.451 pCO2 26.8 pO2 47.9 O2 SAT 83.9 COVID RAPID ~ POSITIVE CXR ~ Bilateral interstitial and hazy airspace opacities, with right upper lobe denser consolidation. Findings may represent bilateral pulmonary edema versus bilateral infiltrates. Correlate with clinical findings IS;ZITHROMAX IV IVF NS BOLUS ROCEPHIN IV HEPARIN IV ASA PO ADMITTED TO ICU ICU STATUS DCP;FROM HOME
[2020-06-24] MEDS: Azithromycin 500 MG in D5W 275 ML IV SCH (17:00)
[2020-06-24] MEDS: cefTRIAXone 1 GM in D5W 55 ML IVPB SCH (17:03)
--- NOTE | 2020-06-24 17:30 | NUR ---
NURSE NOTES: Oral care done again. Patient can position himself. Denies discomfort or pain. Heparin drip is still running at 18 units/kg/hr. No bleeding noted. Will continue to monitor.
--- NOTE | 2020-06-24 19:30 | NUR ---
NURSE HAND-OFF REPORT: Latest Vital Signs: Temperature 97.9 , Pulse 62 , B/P 119 /68 , Respiratory Rate 25 , O2 SAT 95 , Bi-pap, O2 Flow Rate 15.0 . Vital Sign Comment: EKG Rhythm: Sinus Rhythm Rhythm change?: N MD Notified?: - MD Response: Latest Mcdowell Fall Score: 20 Fall Risk: Low Risk Safety Measures: Call light Within Reach, Bed Alarm Zone 2, Side Rails Side Rails x3, Bed position Low and Locked. Fall Precautions: Yellow Socks Yellow Gown Door Sign Patient Fall Education Report given to Ino Thompson RN.
--- NOTE | 2020-06-24 20:05 | NUR ---
NURSE NOTES: Pt report received from Blaise AGUIRRE. pt condition unchanged. pt is alert and oriented times 4, able respond yes or no to simple questions. pt is on BIPAP sating 99% O2, no further resp distress. pt is on desk monitor showin NSR, 83 HR, no further cardiac issues. pt bed is low, locked, armed, call light within reach, bed rails up times 3. will follow plan of care. Addendum: 06/24/20 at 2008 by GUDELIA WHIPPLE RN time 1929 NURSE NOTES: Pt report received from Blaise AGUIRRE. pt condition unchanged. pt is alert and oriented times 4, able respond yes or no to simple questions. pt is on BIPAP sating 99% O2, no further resp distress. pt is on desk monitor showin NSR, 83 HR, no further cardiac issues. pt bed is low, locked, armed, call light within reach, bed rails up times 3. will follow plan of care.
--- NOTE | 2020-06-24 21:41 | NUR ---
NURSE NOTES: pt remains resting in bed. bipap still on per doctor order.
--- NOTE | 2020-06-24 23:40 | NUR ---
NURSE NOTES: pt asleep. vital signs stable. is still on BIPAP
[2020-06-25] VITALS (25 sets, daily range): BP systolic 82–137; BP diastolic 37–80
--- NOTE | 2020-06-25 01:30 | NUR ---
NURSE NOTES: assessed pt. Hep drip still running at 18u/kg/hr. no change in pts condition.
--- NOTE | 2020-06-25 03:18 | NUR ---
NURSE NOTES: BIPAP remains on pt. pt is resting in bed. HR at 56. no change in condition.
[2020-06-25] MEDS ORDERED: Heparin 5000 units/ml inj IV SCH ×2 (05:30→14:00)
--- NOTE | 2020-06-25 05:30 | NUR ---
NURSE NOTES: pt asleep in bed. BIPAP still on. HR 57. Heparin drip still running 18u/KG/HR. Addendum: 06/25/20 at 0711 by GUDELIA WHIPPLE RN NURSE NOTES: pt asleep in bed. BIPAP still on. HR 57. Heparin drip still running 20u/KG/HR.
--- NOTE | 2020-06-25 07:25 | NUR ---
NURSE HAND-OFF REPORT: Latest Vital Signs: Temperature 98.9 , Pulse 64 , B/P 125 /76 , Respiratory Rate 30 , O2 SAT 96 , Bi-pap, O2 Flow Rate 15.0 . Vital Sign Comment: [monitoring HR and O2 sat] EKG Rhythm: Sinus Rhythm Rhythm change?: N MD Notified?: - MD Response: Latest Mcdowell Fall Score: 20 Fall Risk: Low Risk Safety Measures: Call light Within Reach, Bed Alarm Zone 2, Side Rails Side Rails x3, Bed position Low and Locked. Fall Precautions: Yellow Socks Yellow Gown Door Sign Patient Fall Education Report given to [Russ AGUIRRE].
--- NOTE | 2020-06-25 07:30 | NUR ---
NURSE NOTES: Received report from TIMOTHY Mckinnon. Patient in bed resting, no active s/s cardiac, respiratory distress noticed at this time. Patient open eyes spontaneously, follow command. SB with HR 59, Patient on BIPAP 18/10 Fio2 100%. Endorsed transfer to [facility]. IV on right AC 20G, left AC 18G, asymptomatic, patent, intact. Heparin drip @ 25.6ml/h, 20 unit/kg/hr. Bed in lowest position, side rails upx3, call light within reach, urinal at easy reach, bed alarm on, Will continue to monitor.
[2020-06-25] MEDS: Pantoprazole Inj IVP SCH (08:30)
[2020-06-25] MEDS: dexAMETHasone 10mg/ml Inj IV SCH (08:30)
[2020-06-25] MEDS: Aspirin Baby 81mg ORAL SCH (08:30)
--- NOTE | 2020-06-25 08:45 | NUR ---
RD ASSESSMENT & RECOMMENDATIONS SEE CARE ACTIVITY FOR COMPLETE ASSESSMENT DAILY ESTIMATED NEEDS: Needs based on pulmonary 61kg abw 25-30 kcals/kg 3931-0490 total kcals 1-1.5 g protein/kg 61-92 g total protein 25-30 mL/kg 9081-3473 total fluid mLs NUTRITION DIAGNOSIS: Predicted poor po intake r/t respiratory status/ bipap use as evidenced by pt is covid ++, on bipap, desats when off device, unable to tolerate po intake. CURRENT DIET: CLD-> unable to tolerate on bipap PO DIET RECOMMENDATIONS: rec BARN MANAGER eval for diet->Regular diet ENTERAL NUTRITION RECOMMENDATIONS: Consult RD for non-oral TF recs if part of POC. ADDITIONAL RECOMMENDATIONS: 1) Pt unable to tolerate oral po, consider non oral feeds as medically able 2) On decadron w/ elev BG, rec niss w/ po intake 3) Check HgA1C 4) BARN MANAGER eval for appropriate texture 5) Add Ensure Clear TID w/ meals if able to tolerate liquid.
--- NOTE | 2020-06-25 09:00 | NUR ---
NURSE NOTES: Patient on BIPAP, 18/10 Fio2 100%, O2 sat 97%. Patient resting in bed. No active s/s cardiac, respiratory distress noticed.
[2020-06-25] MEDS ORDERED: Tubing IV Secondary IV ONE (09:07)
[2020-06-25] MEDS ORDERED: NS 275ml ONE ×2 (09:07→20:51)
[2020-06-25] MEDS: Heparin 25,000u/D5W 500ml 500 ML IV SCH ×2 (09:47→22:23)
--- NOTE | 2020-06-25 11:34 | NUR ---
NURSE NOTES: Per Dr. Reyes, try to titrate from BIPAP, Colace 100mg BID PO. Order noted, entered, carried out. Will continue to monitor.
--- NOTE | 2020-06-25 11:40 | NUR ---
ASSOCIATE DEAN NOTES SPOKE WITH SILVERIO LAUREANO, TELEPHONE REVIEW GIVEN.
--- NOTE | 2020-06-25 11:53 | Pulmonology Progress Note ---
Subjective ROS Limited/Unobtainable: Yes Interval Events: Looking and feeling better. On NRBM Constitutional: Reports: no symptoms HEENT: Repors: no symptoms Respiratory: Reports: no symptoms Cardiovascular: Reports: no symptoms Gastrointestinal/Abdominal: Reports: no symptoms Allergies: Coded Allergies: No Known Allergies (Unverified , 06/18/20) Objective Last 24 Hour Vital Signs Date Time Temp Pulse Resp B/P (MAP) Pulse Ox O2 Delivery O2 Flow Rate FiO2 06/25/20 11:00 60 29 136/80 (98) 97 06/25/20 10:00 61 27 125/71 (89) 96 06/25/20 09:00 59 25 99/57 (71) 93 06/25/20 08:00 Bi-pap Bi-pap 06/25/20 08:00 75 06/25/20 08:00 98.7 63 29 100/58 (72) 94 06/25/20 07:15 80 40 93 100 06/25/20 07:00 64 30 125/76 (92) 96 06/25/20 06:00 59 26 119/67 (84) 96 06/25/20 05:00 51 20 121/62 (81) 97 06/25/20 04:00 Bi-pap Bi-pap 06/25/20 04:00 50 06/25/20 04:00 98.9 52 22 128/64 (85) 97 06/25/20 03:00 53 23 120/67 (84) 97 06/25/20 02:00 53 25 115/60 (78) 98 06/25/20 01:58 52 27 98 100 06/25/20 01:00 67 21 82/37 (52) 89 06/25/20 00:00 98.2 58 29 122/64 (83) 97 06/25/20 00:00 59 06/25/20 00:00 Bi-pap Bi-pap 06/24/20 23:00 58 30 120/68 (85) 96 06/24/20 22:00 61 26 127/77 (94) 96 06/24/20 21:00 61 28 126/70 (88) 96 06/24/20 20:00 58 06/24/20 20:00 15.0 100 06/24/20 20:00 Bi-pap Bi-pap 06/24/20 20:00 97.8 61 27 113/67 (82) 96 06/24/20 19:28 62 25 95 100 06/24/20 19:27 95 Bi-Pap 100 06/24/20 19:00 66 31 119/68 (85) 95 06/24/20 18:00 78 31 119/77 (91) 96 06/24/20 17:00 65 32 114/66 (82) 95 06/24/20 16:00 Bi-pap Bi-pap 06/24/20 16:00 97.9 65 30 112/65 (81) 97 06/24/20 16:00 64 06/24/20 15:00 67 35 119/66 (83) 91 06/24/20 15:00 75 36 95 100 06/24/20 14:00 58 26 109/64 (79) 93 06/24/20 13:00 61 30 111/66 (81) 93 06/24/20 12:00 Bi-pap Bi-pap 06/24/20 12:00 98.3 60 26 115/72 (86) 94 06/24/20 12:00 60 Intake and Output 06/24/20 06/25/20 19:00 07:00 Intake Total 606.48 ml 256.00 ml Output Total 600 ml Balance 6.48 ml 256.00 ml IV Total 606.48 ml 256.00 ml Output Urine Total 600 ml General Appearance: no acute distress HEENT: normocephalic Respiratory: chest wall non-tender, lungs clear Cardiovascular: normal peripheral pulses Abdomen: normal bowel sounds Extremities: no cyanosis Laboratory Tests 06/25/20 04:00: Activated Partial Thromboplast Time 53H Current Medications Medications (Trade) Dose Ordered Sig/Yoselin Route PRN Reason Start Time Stop Time Status Last Admin Dose Admin Acetaminophen (Tylenol) 650 mg Q6H PRN ORAL For Pain 06/18/20 22:00 07/18/20 21:59 Aspirin (ASA) 81 mg DAILY ORAL 06/20/20 09:00 08/04/20 08:59 06/25/20 08:30 Azithromycin 500 mg/Dextrose 275 ml @ 275 mls/hr Q24HRS IV 06/19/20 16:00 06/25/20 16:59 06/24/20 17:00 Ceftriaxone Sodium 1 gm/ Dextrose 55 ml @ 110 mls/hr Q24H IVPB 06/19/20 17:00 06/26/20 16:59 06/24/20 17:03 Dexamethasone Sodium Phosphate (Decadron 10mg/ ml Inj) 6 mg DAILY IV 06/19/20 09:00 06/28/20 09:01 06/25/20 08:30 Docusate Sodium (Colace) 100 mg TWICE A DAY NG 06/25/20 18:00 07/25/20 17:59 Heparin Sodium/ Dextrose 500 ml @ 25.6 mls/hr ADJUST PER PROTOCOL IV 06/23/20 11:21 07/23/20 11:20 06/25/20 09:47 Ondansetron HCl (Zofran) 4 mg Q6H PRN IVP Nausea & Vomiting 06/18/20 22:00 07/18/20 21:59 Pantoprazole (Protonix) 40 mg DAILY IVP 06/20/20 09:00 07/20/20 08:59 06/25/20 08:30 Assessment/Plan Assessment/Plan IMPRESSION: 1. COVID-19 pneumonia. 2. Respiratory failure. 3. Pulmonary embolism. 4. Troponin leak. DISCUSSION: Continue Decadron, Continue heparin infusion, Continue broad-spectrum antibiotics. Seen by ID for remdesivir. Maintain on nonrebreather mask Attempted venti-mask yesterday.. unsuccessful Will attempt again today CXR unchanged ABG better Keep in ICU On clear liquid dirt; will advance to full liquid Tea Peterson Omar Syed MD Jun 25, 2020 11:53
--- NOTE | 2020-06-25 12:35 | NUR ---
NURSE NOTES: Dawood HANEY at the bedside, trying to titrate patient off BIPAP, will continue to monitor.
--- NOTE | 2020-06-25 12:40 | NUR ---
RESPIRATORY NOTES Per MD's order, PT taken off bipap and placed on 100% NRB. PT does not complain off any trouble breathing. PT's SaO2 ~93%. RN Russ aware. Will continue to monitor.
--- NOTE | 2020-06-25 13:09 | NUR ---
NURSE NOTES: After 20minues off BIPAP, on Non-rebreathe, patient de-sat to 88%, RT called, back to BIPAP.
--- NOTE | 2020-06-25 13:16 | Infectious Diseases Prog Note ---
Assessment/Plan Assessment/Plan IMPRESSION: 1. Sepsis with tachycardia, tachypnea and leukocytosis. 2. COVID-19 pneumonia. 3. Pulmonary emboli. 4. Hypoxic respiratory failure, acidosis. 5. Elevated troponin. RECOMMENDATION: Continue dexamethasone, Continue ceftriaxone & Zithromax Finished Remdesivir course Subjective ROS Limited/Unobtainable: Yes Constitutional: Reports: fever, other - feels fine Respiratory: Reports: shortness of breath; Denies: dry cough, productive cough Allergies: Coded Allergies: No Known Allergies (Unverified , 06/18/20) Objective Last 24 Hour Vital Signs Date Time Temp Pulse Resp B/P (MAP) Pulse Ox O2 Delivery O2 Flow Rate FiO2 06/25/20 12:00 55 06/25/20 12:00 57 19 137/74 (95) 96 06/25/20 11:00 60 29 136/80 (98) 97 06/25/20 10:00 61 27 125/71 (89) 96 06/25/20 09:00 59 25 99/57 (71) 93 06/25/20 08:00 Bi-pap Bi-pap 06/25/20 08:00 75 06/25/20 08:00 98.7 63 29 100/58 (72) 94 06/25/20 07:15 80 40 93 100 06/25/20 07:00 64 30 125/76 (92) 96 06/25/20 06:00 59 26 119/67 (84) 96 06/25/20 05:00 51 20 121/62 (81) 97 06/25/20 04:00 Bi-pap Bi-pap 06/25/20 04:00 50 06/25/20 04:00 98.9 52 22 128/64 (85) 97 06/25/20 03:00 53 23 120/67 (84) 97 06/25/20 02:00 53 25 115/60 (78) 98 06/25/20 01:58 52 27 98 100 06/25/20 01:00 67 21 82/37 (52) 89 06/25/20 00:00 98.2 58 29 122/64 (83) 97 06/25/20 00:00 59 06/25/20 00:00 Bi-pap Bi-pap 06/24/20 23:00 58 30 120/68 (85) 96 06/24/20 22:00 61 26 127/77 (94) 96 06/24/20 21:00 61 28 126/70 (88) 96 06/24/20 20:00 58 06/24/20 20:00 15.0 100 06/24/20 20:00 Bi-pap Bi-pap 06/24/20 20:00 97.8 61 27 113/67 (82) 96 06/24/20 19:28 62 25 95 100 06/24/20 19:27 95 Bi-Pap 100 06/24/20 19:00 66 31 119/68 (85) 95 06/24/20 18:00 78 31 119/77 (91) 96 06/24/20 17:00 65 32 114/66 (82) 95 06/24/20 16:00 Bi-pap Bi-pap 06/24/20 16:00 97.9 65 30 112/65 (81) 97 06/24/20 16:00 64 06/24/20 15:00 67 35 119/66 (83) 91 06/24/20 15:00 75 36 95 100 06/24/20 14:00 58 26 109/64 (79) 93 Height (Feet): 5 Height (Inches): 4.00 Weight (Pounds): 146 HEENT: mucous membranes moist Respiratory/Chest: other - on BIPAP Cardiovascular: bradycardia Abdomen: soft, non tender Extremities: no edema Neurologic/Psychiatric: alert, responsive Laboratory Tests Test 06/25/20 04:00 06/25/20 12:30 Activated Partial Thromboplast Time 53 SEC (23-33) H Pending Current Medications Medications (Trade) Dose Ordered Sig/Yoselin Route PRN Reason Start Time Stop Time Status Last Admin Dose Admin Acetaminophen (Tylenol) 650 mg Q6H PRN ORAL For Pain 06/18/20 22:00 07/18/20 21:59 Aspirin (ASA) 81 mg DAILY ORAL 06/20/20 09:00 08/04/20 08:59 06/25/20 08:30 Azithromycin 500 mg/Dextrose 275 ml @ 275 mls/hr Q24HRS IV 06/19/20 16:00 06/25/20 16:59 06/24/20 17:00 Ceftriaxone Sodium 1 gm/ Dextrose 55 ml @ 110 mls/hr Q24H IVPB 06/19/20 17:00 06/26/20 16:59 06/24/20 17:03 Dexamethasone Sodium Phosphate (Decadron 10mg/ ml Inj) 6 mg DAILY IV 06/19/20 09:00 06/28/20 09:01 06/25/20 08:30 Docusate Sodium (Colace) 100 mg TWICE A DAY NG 06/25/20 18:00 07/25/20 17:59 Furosemide (Lasix) 40 mg DAILY IV 06/25/20 12:30 07/25/20 12:29 06/25/20 12:34 Heparin Sodium/ Dextrose 500 ml @ 25.6 mls/hr ADJUST PER PROTOCOL IV 06/23/20 11:21 07/23/20 11:20 06/25/20 09:47 Ondansetron HCl (Zofran) 4 mg Q6H PRN IVP Nausea & Vomiting 06/18/20 22:00 07/18/20 21:59 Pantoprazole (Protonix) 40 mg DAILY IVP 06/20/20 09:00 07/20/20 08:59 06/25/20 08:30 Arturo Dudley MD Jun 25, 2020 13:16
--- NOTE | 2020-06-25 13:47 | NUR ---
Technician Anatomic PathologyStory Analyst SI: Respiratory Failure, Pulmonary Emboli, COVID-19 T 98.7, HR 82, RR 33, BP 103/57, O2 Sat 92% BIPAP FiO2 100%, O2 Sat 92% WBC 14, troponin 0.487 Cxray mulilobar infiltrates. IS: Ceftriaxone IV Azithromycin Iv Dexamethasone IV Lasix IV Heparin IV ICU Status
[2020-06-25] MEDS ORDERED: Heparin 25,000u/D5W 500ml 500 ML IV SCH (14:00)
[2020-06-25] MEDS: Azithromycin 500 MG in D5W 275 ML IV SCH (16:38)
--- NOTE | 2020-06-25 17:00 | NUR ---
NURSE NOTES: Patient resting in bed, no active s/s cardiac, respiratory distress noticed at this time, Patient on BIPAP, 18/10, Fio2 100%, O2 sat 97%.
[2020-06-25] MEDS: cefTRIAXone 1 GM in D5W 55 ML IVPB SCH (17:38)
[2020-06-25] MEDS: Docusate 100mg/10ml Liq NG SCH (17:38)
--- NOTE | 2020-06-25 19:08 | NUR ---
NURSE HAND-OFF REPORT: Latest Vital Signs: Temperature 98.2 , Pulse 56 , B/P 119 /69 , Respiratory Rate 23 , O2 SAT 97 , Bi-pap, O2 Flow Rate 15.0 . Vital Sign Comment: STABLE EKG Rhythm: Sinus Rhythm Rhythm change?: N MD Notified?: - MD Response: Latest Mcdowell Fall Score: 20 Fall Risk: Low Risk Safety Measures: Call light Within Reach, Bed Alarm Zone 2, Side Rails Side Rails x3, Bed position Low and Locked. Fall Precautions: Yellow Socks Yellow Gown Door Sign Patient Fall Education Report given to TIMOTHY Almonte.
--- NOTE | 2020-06-25 19:09 | NUR ---
NURSE NOTES: Received patient from TIMOTHY Solano. Will continue plan of care.
--- NOTE | 2020-06-25 20:00 | NUR ---
NURSE NOTES: Patient is awake, alert and oriented x4. On BiPAP 18/10 @ 100% and resting well; showing no signs of pain, discomfort and distress. O2sat:97%. IV sites: right A/C 20g and left A/C 18g running TKO and Heparin drip for PE at a rate of 22units/kg/hr. Next PTT timed at 2030. called for updates and updates given by charge nurse. Bed side urinal in reach. Bed low, locked and alarm is on. Will continue plan of care.
--- NOTE | 2020-06-25 22:00 | NUR ---
NURSE NOTES: PTT has been on held for PTT >150. Heparin drip on hold since 2114 and will resume at 2214 with a new drip rate of 18units/kg/hr. Timed PTT is to be followed 6 hours after drip resumes.
[2020-06-26] VITALS (13 sets, daily range): BP systolic 102–143; BP diastolic 63–87
--- NOTE | 2020-06-26 | NUR ---
NURSE NOTES: No changes in patient condition. Remains resting well on BiPAP. All needs met. TV on for entertainment and distraction.
--- NOTE | 2020-06-26 02:00 | NUR ---
NURSE NOTES: Patient is sleeping, seen to reposition himself. Tolerating BiPAP- no settings changed. BP:123/71, HR:50, O2sat:93%
--- NOTE | 2020-06-26 04:00 | NUR ---
NURSE NOTES: All needs are met, patient is comfortable. No changes.
[2020-06-26 05:19] LABS: HEMATOCRIT 40.9 % (42.0-52.0); HEMOGLOBIN 13.5 G/DL (14.2-18.0); MEAN CORPUSCULAR VOLUME 95 FL (80-99); PLATELET COUNT 205 K/UL (150-450); RED BLOOD COUNT 4.32 M/UL (4.70-6.10); RED CELL DISTRIBUTION WIDTH 12.5 % (11.6-14.8); WHITE BLOOD COUNT 9.5 K/UL (4.8-10.8)
[2020-06-26 05:59] LABS: ANION GAP 4 mmol/L (5-15); BLOOD UREA NITROGEN 20 mg/dL (7-18); CALCIUM 7.9 MG/DL (8.5-10.1); CARBON DIOXIDE 29 MMOL/L (21-32); CHLORIDE 104 MMOL/L (98-107); CREATININE 0.6 MG/DL (0.55-1.30); POTASSIUM 4.3 MMOL/L (3.5-5.1); SODIUM 137 MMOL/L (136-145)
--- NOTE | 2020-06-26 06:13 | NUR ---
NURSE NOTES: PTT resulted 64, 2500k/units bolus and Heparin drip rate will increase to 20units/kg/hr. and timed PTT will follow 6 hours after rate change
[2020-06-26] MEDS: Heparin 25,000u/D5W 500ml 500 ML IV SCH ×3 (06:27→22:12)
[2020-06-26] MEDS ORDERED: Heparin 5000 units/ml inj IV ONE (06:30)
--- NOTE | 2020-06-26 06:38 | NUR ---
RESPIRATORY NOTE: PT RECEIVED STABLE ON BIPAP WITH CURRENT SETTINGS: 18/10, RR:14, 100%. ALARMS ARE ON AND AUDIBLE. PT CURRENTLY USING FULL FACE MASK. MASK WAS READJUSTED TO RELIEVE PRESSURE. NO FACIAL WOUNDS FOUND. WILL CONTINUE TO CLOSELY MONITOR.
--- NOTE | 2020-06-26 07:16 | NUR ---
NURSE HAND-OFF REPORT: Latest Vital Signs: Temperature 98.1 , Pulse 52 , B/P 131 /71 , Respiratory Rate 20 , O2 SAT 98 , Bi-pap, O2 Flow Rate 15.0 . Vital Sign Comment: Stable EKG Rhythm: Sinus Bradycardia Rhythm change?: N MD Notified?: - MD Response: Latest Mcdowell Fall Score: 20 Fall Risk: Low Risk Safety Measures: Call light Within Reach, Bed Alarm Zone 2, Side Rails Side Rails x3, Bed position Low and Locked. Fall Precautions: Yellow Socks Yellow Gown Door Sign Patient Fall Education Report given to .
--- NOTE | 2020-06-26 07:35 | NUR ---
NURSE NOTES: RECEIVED REPORT FROM CARLITO Jordan PT IN BED. AWAKE, SOB WITH BIPAP ON. A FEBRILE 86.6 AX. PT C/O FEELING HOT. FACE IS FLUSHED. A/OX4. NO C/O OF PAIN. DIET FULL LIQUID. POOR APPETITE. SB ON MONITOR. BIPAP 18/10, [id number] PT USES URINAL AT BEDSIDE. VOIDS, YELLOW URINE. SKIN INTACT. LT 18G, RT AC 20G. HEPARIN DRIP AT 20U/KG/HR. CALL LIGHT IN PLACE.
--- NOTE | 2020-06-26 08:25 | Diagnostic Imaging Report ---
EXAM: XR Chest, 1 View CLINICAL HISTORY: F/U TECHNIQUE: Frontal view of the chest. COMPARISON: Chest radiograph on June 21, 2020. FINDINGS/IMPRESSION: Mild airspace opacities within the bilateral lung tucker, preferentially involving the left perihilar region, suspicious for multifocal infiltrate. Overall, there is improvement when compared to the previous study from June 21, 2020. Continued follow-up recommended. Suspect, small bilateral pleural effusions. No pneumothorax. Cardiomegaly.
[2020-06-26] MEDS: Docusate 100mg/10ml Liq NG SCH ×2 (08:35→18:00)
[2020-06-26] MEDS: dexAMETHasone 10mg/ml Inj IV SCH (08:35)
[2020-06-26] MEDS: Pantoprazole Inj IVP SCH (08:35)
[2020-06-26] MEDS: Aspirin Baby 81mg ORAL SCH (08:35)
--- NOTE | 2020-06-26 09:25 | NUR ---
NURSE NOTES: Received report from Genoveva Delgado RN.
--- NOTE | 2020-06-26 09:45 | NUR ---
TRANSFER TO FLOOR: Patient transferred to [facility], per . Report given to . Belongings and medications given to r.n . Family and or S/O informed of transfer. Addendum: 06/26/20 at 1104 by Genoveva Ybarra RN pt transferred at 0845
--- NOTE | 2020-06-26 14:33 | Pulmonology Progress Note ---
Subjective ROS Limited/Unobtainable: Yes Interval Events: seen in SDU Constitutional: Reports: fever, other - feels fine HEENT: Repors: no symptoms Respiratory: Reports: no symptoms Cardiovascular: Reports: no symptoms Gastrointestinal/Abdominal: Reports: no symptoms Allergies: Coded Allergies: No Known Allergies (Unverified , 06/18/20) Objective Last 24 Hour Vital Signs Date Time Temp Pulse Resp B/P (MAP) Pulse Ox O2 Delivery O2 Flow Rate FiO2 06/26/20 12:00 100 06/26/20 12:00 97.6 64 21 109/72 (84) 95 06/26/20 09:29 74 06/26/20 09:00 100 06/26/20 09:00 73 30 106/72 (83) 92 06/26/20 08:00 96.8 56 20 119/67 (84) 98 06/26/20 08:00 52 06/26/20 08:00 Bi-pap Bi-pap 06/26/20 07:00 52 20 131/71 (91) 98 06/26/20 06:38 56 25 99 100 06/26/20 06:00 67 25 102/65 (77) 91 06/26/20 05:00 98.1 51 17 116/63 (80) 93 06/26/20 04:47 53 06/26/20 04:00 52 19 124/65 (84) 96 06/26/20 04:00 100 06/26/20 04:00 Bi-pap Bi-pap 06/26/20 03:06 58 23 97 100 06/26/20 03:00 52 17 120/76 (91) 95 06/26/20 02:00 48 17 123/71 (88) 95 06/26/20 01:00 51 14 143/87 (105) 96 06/26/20 00:12 53 06/26/20 00:00 98.5 54 20 118/71 (87) 96 06/26/20 00:00 100 06/26/20 00:00 Bi-pap Bi-pap 06/25/20 23:35 57 21 98 100 06/25/20 23:00 59 28 125/73 (90) 98 06/25/20 22:00 58 24 119/66 (83) 98 06/25/20 21:00 57 24 126/70 (88) 96 06/25/20 20:12 60 06/25/20 20:00 100 06/25/20 20:00 98.2 56 23 125/72 (89) 97 06/25/20 20:00 Bi-pap Bi-pap 06/25/20 19:49 62 26 98 100 06/25/20 19:00 98.2 56 23 119/69 (86) 97 06/25/20 18:00 64 26 105/63 (77) 97 06/25/20 17:00 90 31 100/56 (71) 86 06/25/20 16:00 86 06/25/20 16:00 98.0 67 31 105/64 (78) 91 06/25/20 16:00 Bi-pap Bi-pap 06/25/20 15:00 70 29 103/58 (73) 96 Intake and Output 06/25/20 06/26/20 19:00 07:00 Intake Total 712.72 ml 189.568 ml Output Total 1300 ml 700 ml Balance -587.28 ml -510.432 ml IV Total 712.72 ml 189.568 ml Output Urine Total 1300 ml 700 ml Objective seen in SDU, on BiPAP saturating at 97% with 15/5 100% FiO2 General Appearance: no acute distress HEENT: normocephalic Respiratory: chest wall non-tender, lungs clear Cardiovascular: normal peripheral pulses Abdomen: normal bowel sounds Extremities: no cyanosis Laboratory Tests 06/25/20 20:15: Activated Partial Thromboplast Time > 150*H 06/26/20 04:25: Activated Partial Thromboplast Time 64H, White Blood Count 9.5, Red Blood Count 4.32L, Hemoglobin 13.5L, Hematocrit 40.9L, Mean Corpuscular Volume 95, Mean Corpuscular Hemoglobin 31.4H, Mean Corpuscular Hemoglobin Concent 33.1, Red Cell Distribution Width 12.5, Platelet Count 205, Mean Platelet Volume 8.3, Neutrophils (%) (Auto) , Lymphocytes (%) (Auto) , Monocytes (%) (Auto) , Eosinophils (%) (Auto) , Basophils (%) (Auto) , Differential Total Cells Counted 100, Neutrophils % (Manual) 93H, Lymphocytes % (Manual) 4L, Monocytes % (Manual) 2, Eosinophils % (Manual) 0, Basophils % (Manual) 0, Band Neutrophils 1, Platelet Estimate Adequate, Platelet Morphology Normal, Red Blood Cell Morphology Normal, Sodium Level 137, Potassium Level 4.3, Chloride Level 104, Carbon Dioxide Level 29, Anion Gap 4L, Blood Urea Nitrogen 20H, Creatinine 0.6, Estimat Glomerular Filtration Rate > 60, Glucose Level 193H, Calcium Level 7.9L 06/26/20 10:20: Arterial Blood pH 7.449, Arterial Blood Partial Pressure CO2 40.3, Arterial Blood Partial Pressure O2 59.7L, Arterial Blood HCO3 27.3H, Arterial Blood Oxygen Saturation 90.1L, Arterial Blood Base Excess 3.1H, Roshan Test Positive 06/26/20 12:21: Activated Partial Thromboplast Time > 150*H Current Medications Medications (Trade) Dose Ordered Sig/Yoselin Route PRN Reason Start Time Stop Time Status Last Admin Dose Admin Acetaminophen (Tylenol) 650 mg Q6H PRN ORAL For Pain 06/18/20 22:00 07/18/20 21:59 Aspirin (ASA) 81 mg DAILY ORAL 06/20/20 09:00 08/04/20 08:59 06/26/20 08:35 Ceftriaxone Sodium 1 gm/ Dextrose 55 ml @ 110 mls/hr Q24H IVPB 06/19/20 17:00 06/26/20 16:59 06/25/20 17:38 Dexamethasone Sodium Phosphate (Decadron 10mg/ ml Inj) 6 mg DAILY IV 06/19/20 09:00 06/28/20 09:01 06/26/20 08:35 Docusate Sodium (Colace) 100 mg TWICE A DAY NG 06/25/20 18:00 07/25/20 17:59 06/26/20 08:35 Furosemide (Lasix) 40 mg DAILY IV 06/25/20 12:30 07/25/20 12:29 06/26/20 08:35 Heparin Sodium/ Dextrose 500 ml @ 20.48 mls/ hr ADJUST PER PROTOCOL IV 06/25/20 22:15 07/25/20 22:14 06/26/20 06:27 Ondansetron HCl (Zofran) 4 mg Q6H PRN IVP Nausea & Vomiting 06/18/20 22:00 07/18/20 21:59 Pantoprazole (Protonix) 40 mg DAILY IVP 06/20/20 09:00 07/20/20 08:59 06/26/20 08:35 Assessment/Plan Assessment/Plan 1. COVID-19 pneumonia. - on Decadron, - Continue broad-spectrum antibiotics - s/p remdesivir - CXR 06/26 better 2. Respiratory failure. - currently on BiPAP saturating at 97%; will attempt weaning today 3. Pulmonary embolism. - Continue heparin infusion 4. Troponin leak. Attempted venti-mask earlier.. unsuccessful On clear liquid diet; will advance to full liquid The care of this patient was discussed with my supervising physician Time spent for this encounter was approximately 31 minutes Jhonny Vences Jun 26, 2020 14:33 Gurdeep Reyes MD Jun 26, 2020 15:35
--- NOTE | 2020-06-26 14:55 | NUR ---
CASE MANAGEMENT: INITIAL REVIEW 06/26/2020 SI;SEPSIS. NSTEMI. VS: T 97.6 HR 64 RR 21 B/P 109/72 SATS 95% ON BIPAP FIO2 100 LABS: BUN 20 GLU 193 CA 7.9 ABGs PO2 59.7 HCO3 27.3 O2 SAT 90.1 BE 3.1 IS: DECADRON IV QD ASA PO QD LASIX IV QD HEPARIN DRIP PER PARAMETERS CEFTRIAXONE IV Q24H SDU
--- NOTE | 2020-06-26 19:05 | NUR ---
NURSE NOTES: Endorsed to Yocasta AGUIRRE. Gave copy of report for this pt. for Macario AGUIRRE. Pt. remain stable.
--- NOTE | 2020-06-26 19:43 | NUR ---
NURSE HAND-OFF REPORT: Important Events on Shift: Heparin drip 16u/kg/hr and PTT timed at 2014. Patient Status: remain stable Diet: full liquid Pending Orders: PTT Pending Results/Labs:PTT Pending MD notification:N Latest Vital Signs: Temperature 96.4 , Pulse 60 , B/P 111 /69 , Respiratory Rate 20 , O2 SAT 98 , Bi-pap, O2 Flow Rate 15.0 . Vital Sign Comment: WNL EKG Rhythm: Sinus Rhythm Rhythm change?: N MD Notified?: - MD Response: Latest Mcdowell Fall Score: 20 Fall Risk: Low Risk Safety Measures: Call light Within Reach, Bed Alarm Zone 2, Side Rails Side Rails x3, Bed position Low and Locked. Fall Precautions: Door Sign Report given to Rochelle AGUIRRE.
--- NOTE | 2020-06-26 19:45 | NUR ---
NURSE NOTES: Received pt and report from TIMOTHY Roque. Observed pt resting in bed with both eyes open and watching television. Pt is A/Ox4. astronomy professor is in placed; pt is NSR. IV site intact, asymptomatic, and patent; running Heparin drip at 16 units/kg/hr; rate is 20.48cc/hr. No bleeding noted. Pt is on continuous BiPAP 18/10, FiO2 100%. O2 saturation is 97%. Bed is in the lowest position and locked. Call light and bedside table is within reach. No signs/symptoms of acute SOB/distress noted. Will continue plan of care.
[2020-06-26] MEDS ORDERED: Heparin 5000 units/ml inj IV SCH (21:45)
--- NOTE | 2020-06-26 22:15 | NUR ---
NURSE NOTES: Pt's PTT came back at 54. Per pharmacist, administer Heparin 2,560 units IV bolus and increase rate to 18 units/kg/hr; rate = 23.04cc/hr. Reordered PTT for tomorrow morning (06/27/19 @ 0400). Noted and carried out.
[2020-06-27] VITALS: BP 118/75
--- NOTE | 2020-06-27 00:40 | NUR ---
NURSE NOTES: Pt is asleep. No signs/symptoms of acute SOB. Will continue plan of care.
[2020-06-27 04:00] VITALS: BP 121/80
--- NOTE | 2020-06-27 05:25 | NUR ---
NURSE NOTES: Pt's 0400 PTT came back at 73. Per [facility] pharmacist, no change on heparin drip. Reordered PTT for tomorrow morning (06/28/19 @ 0400).
--- NOTE | 2020-06-27 06:56 | NUR ---
RESPIRATORY NOTE: Pt received stable on Bipap with current settings. 10/02 RR:14, 100%. Alarms are on and audible. Foam tape in place. No facial wounds found. No SOB noted at this time. Will continue to monitor.
--- NOTE | 2020-06-27 07:21 | NUR ---
NURSE HAND-OFF REPORT: Important Events on Shift: Changed Heparin drip to 18 units/kg/hr. Current rate is 23.04cc/hr. Patient Status: Stable Diet: Full liquid Pending Orders: N Pending Results/Labs: AM Labs Pending MD notification: N Latest Vital Signs: Temperature 97.0 , Pulse 56 , B/P 121 /80 , Respiratory Rate 21 , O2 SAT 95 , Bi-pap, O2 Flow Rate 15.0 . EKG Rhythm: Sinus Bradycardia Rhythm change?: N Latest Mcdowell Fall Score: 20 Fall Risk: Low Risk Safety Measures: Call light Within Reach, Bed Alarm Zone 2, Side Rails Side Rails x3, Bed position Low and Locked. Fall Precautions: Door Sign Report given to TIMOTHY Roque.
--- NOTE | 2020-06-27 07:23 | NUR ---
NURSE NOTES: Received report from Rochelle AGUIRRE.
[2020-06-27 08:00] VITALS: BP 131/81
[2020-06-27] MEDS ORDERED: NS 275ml ONE (08:14)
--- NOTE | 2020-06-27 08:20 | NUR ---
NURSE NOTES: Pt. in bed, sleeping but easy to arouse. No sign of distress. On cont. Bipap with setting 18/10, Fi O2 at 100%. No grimacing noted. IV at left AC #18g. and right AC #20g. in placed patent/intact. On Heparin drip 18u/kg/hr. No active bleeding noted. Bed in low position, locked. Call light within reach. Will cont. to monitor.
[2020-06-27] MEDS: Docusate 100mg/10ml Liq NG SCH ×2 (08:25→18:00)
[2020-06-27] MEDS: Pantoprazole Inj IVP SCH (08:25)
[2020-06-27] MEDS: dexAMETHasone 10mg/ml Inj IV SCH (08:26)
[2020-06-27] MEDS: Aspirin Baby 81mg ORAL SCH (08:26)
--- NOTE | 2020-06-27 09:59 | NUR ---
CASE MANAGEMENT: REVIEW 06/27/2020 SI;SEPSIS. COVID PNA. VS: T 97 HR 56 RR 21 B/P 121/80 SATS 95% ON BIPAP FIO2 100 LABS: ABGs PH 7.467 HCO3 26.5 BE 2.9 IS:DECADRON IV QD ASA PO QD LASIX IV QD HEPARIN DRIP IV PER PROTOCOL SDU
[2020-06-27] MEDS: Heparin 25,000u/D5W 500ml 500 ML IV SCH (11:40)
[2020-06-27 12:00] VITALS: BP 96/61
--- NOTE | 2020-06-27 12:12 | Pulmonology Progress Note ---
Subjective ROS Limited/Unobtainable: Yes Interval Events: seen in SDU Constitutional: Reports: other - feels fine HEENT: Repors: no symptoms Respiratory: Reports: no symptoms Cardiovascular: Reports: no symptoms Gastrointestinal/Abdominal: Reports: no symptoms Allergies: Coded Allergies: No Known Allergies (Unverified , 06/18/20) Objective Last 24 Hour Vital Signs Date Time Temp Pulse Resp B/P (MAP) Pulse Ox O2 Delivery O2 Flow Rate FiO2 06/27/20 08:00 100 06/27/20 08:00 97.6 78 21 131/81 (98) 98 06/27/20 08:00 Bi-pap Bi-pap 06/27/20 07:47 57 06/27/20 04:00 Bi-pap Bi-pap 06/27/20 04:00 100 06/27/20 04:00 48 06/27/20 04:00 97.0 56 21 121/80 (94) 95 06/27/20 01:32 54 19 99 100 06/27/20 00:00 Bi-pap Bi-pap 06/27/20 00:00 48 06/27/20 00:00 98.0 55 21 118/75 (89) 94 06/27/20 00:00 100 06/26/20 20:08 63 32 96 100 06/26/20 20:00 Bi-pap Bi-pap 06/26/20 20:00 98.4 75 20 110/73 (85) 97 06/26/20 20:00 100 06/26/20 20:00 75 06/26/20 16:00 Bi-pap Bi-pap 06/26/20 16:00 96.4 60 20 111/69 (83) 98 06/26/20 16:00 60 06/26/20 16:00 100 Intake and Output 06/26/20 06/27/20 19:00 07:00 Intake Total 215.04 ml 299.32 ml Output Total 250 ml 400 ml Balance -34.96 ml -100.68 ml Intake Oral 115 ml IV Total 215.04 ml 184.32 ml Output Urine Total 250 ml 400 ml # Voids 2 Objective seen in SDU, on BiPAP saturating at 100% with current setting General Appearance: no acute distress HEENT: normocephalic Respiratory: chest wall non-tender, lungs clear Cardiovascular: normal peripheral pulses Abdomen: normal bowel sounds Extremities: no cyanosis Laboratory Tests 06/26/20 12:21: Activated Partial Thromboplast Time > 150*H 06/26/20 20:20: Activated Partial Thromboplast Time 54H 06/27/20 04:11: Activated Partial Thromboplast Time 73H 06/27/20 09:00: Arterial Blood pH 7.467H, Arterial Blood Partial Pressure CO2 37.5, Arterial Blood Partial Pressure O2 82.2, Arterial Blood HCO3 26.5H, Arterial Blood Oxygen Saturation 96.1, Arterial Blood Base Excess 2.9H, Roshan Test Positive Current Medications Medications (Trade) Dose Ordered Sig/Yoselin Route PRN Reason Start Time Stop Time Status Last Admin Dose Admin Acetaminophen (Tylenol) 650 mg Q6H PRN ORAL For Pain 06/18/20 22:00 07/18/20 21:59 Aspirin (ASA) 81 mg DAILY ORAL 06/20/20 09:00 08/04/20 08:59 06/27/20 08:26 Dexamethasone Sodium Phosphate (Decadron 10mg/ ml Inj) 6 mg DAILY IV 06/19/20 09:00 06/28/20 09:01 06/27/20 08:26 Docusate Sodium (Colace) 100 mg TWICE A DAY NG 06/25/20 18:00 07/25/20 17:59 06/27/20 08:25 Furosemide (Lasix) 40 mg DAILY IV 06/25/20 12:30 07/25/20 12:29 06/27/20 08:26 Heparin Sodium/ Dextrose 500 ml @ 23.04 mls/ hr ADJUST PER PROTOCOL IV 06/26/20 22:15 07/26/20 22:14 06/27/20 11:40 Ondansetron HCl (Zofran) 4 mg Q6H PRN IVP Nausea & Vomiting 06/18/20 22:00 07/18/20 21:59 Pantoprazole (Protonix) 40 mg DAILY IVP 06/20/20 09:00 07/20/20 08:59 06/27/20 08:25 Assessment/Plan Assessment/Plan 1. COVID-19 pneumonia. - on Decadron, - s/p broad-spectrum antibiotics - s/p remdesivir - CXR 06/26 better 2. Respiratory failure. - currently on BiPAP saturating at 100%; will attempt weaning today 3. Pulmonary embolism. - Continue heparin infusion 4. Troponin leak. Attempted venti-mask earlier.. unsuccessful On clear liquid diet; will advance to full liquid The care of this patient was discussed with my supervising physician Time spent for this encounter was approximately 31 minutes Jhonny Vences Jun 27, 2020 12:12
--- NOTE | 2020-06-27 13:47 | Infectious Diseases Prog Note ---
Assessment/Plan Assessment/Plan IMPRESSION: 1. Sepsis with tachycardia, tachypnea and leukocytosis. 2. COVID-19 pneumonia. 3. Pulmonary emboli. 4. Hypoxic respiratory failure, 5. Elevated troponin. RECOMMENDATION: Continue dexamethasone X 1 day Finished Remdesivir course Subjective ROS Limited/Unobtainable: Yes Constitutional: Denies: fever Allergies: Coded Allergies: No Known Allergies (Unverified , 06/18/20) Objective Last 24 Hour Vital Signs Date Time Temp Pulse Resp B/P (MAP) Pulse Ox O2 Delivery O2 Flow Rate FiO2 06/27/20 12:00 Bi-pap Bi-pap 06/27/20 12:00 100 06/27/20 12:00 97.3 76 20 96/61 (73) 96 06/27/20 08:00 100 06/27/20 08:00 97.6 78 21 131/81 (98) 98 06/27/20 08:00 Bi-pap Bi-pap 06/27/20 07:47 57 06/27/20 04:00 Bi-pap Bi-pap 06/27/20 04:00 100 06/27/20 04:00 48 06/27/20 04:00 97.0 56 21 121/80 (94) 95 06/27/20 01:32 54 19 99 100 06/27/20 00:00 Bi-pap Bi-pap 06/27/20 00:00 48 06/27/20 00:00 98.0 55 21 118/75 (89) 94 06/27/20 00:00 100 06/26/20 20:08 63 32 96 100 06/26/20 20:00 Bi-pap Bi-pap 06/26/20 20:00 98.4 75 20 110/73 (85) 97 06/26/20 20:00 100 06/26/20 20:00 75 06/26/20 16:00 Bi-pap Bi-pap 06/26/20 16:00 96.4 60 20 111/69 (83) 98 06/26/20 16:00 60 06/26/20 16:00 100 Height (Feet): 5 Height (Inches): 4.00 Weight (Pounds): 146 HEENT: mucous membranes moist Respiratory/Chest: other - on BIPA Cardiovascular: normal rate Abdomen: soft, non tender Extremities: no edema Neurologic/Psychiatric: other - sleeping Laboratory Tests Test 1/1/21 20:20 06/27/20 04:11 06/27/20 09:00 Activated Partial Thromboplast Time 54 SEC (23-33) H 73 SEC (23-33) H Arterial Blood pH 7.467 (7.350-7.450) Arterial Blood Partial Pressure CO2 37.5 mmHg (35.0-45.0) Arterial Blood Partial Pressure O2 82.2 mmHg (75.0-100.0) Arterial Blood HCO3 26.5 mmol/L (22.0-26.0) H Arterial Blood Oxygen Saturation 96.1 % (95-100) Arterial Blood Base Excess 2.9 (-2-2) H Roshan Test Positive Current Medications Medications (Trade) Dose Ordered Sig/Yoselin Route PRN Reason Start Time Stop Time Status Last Admin Dose Admin Acetaminophen (Tylenol) 650 mg Q6H PRN ORAL For Pain 06/18/20 22:00 07/18/20 21:59 Aspirin (ASA) 81 mg DAILY ORAL 06/20/20 09:00 08/04/20 08:59 06/27/20 08:26 Dexamethasone Sodium Phosphate (Decadron 10mg/ ml Inj) 6 mg DAILY IV 06/19/20 09:00 06/28/20 09:01 06/27/20 08:26 Docusate Sodium (Colace) 100 mg TWICE A DAY NG 06/25/20 18:00 07/25/20 17:59 06/27/20 08:25 Furosemide (Lasix) 40 mg DAILY IV 06/25/20 12:30 07/25/20 12:29 06/27/20 08:26 Heparin Sodium/ Dextrose 500 ml @ 23.04 mls/ hr ADJUST PER PROTOCOL IV 06/26/20 22:15 07/26/20 22:14 06/27/20 11:40 Ondansetron HCl (Zofran) 4 mg Q6H PRN IVP Nausea & Vomiting 06/18/20 22:00 07/18/20 21:59 Pantoprazole (Protonix) 40 mg DAILY IVP 06/20/20 09:00 07/20/20 08:59 06/27/20 08:25 Arturo Dudley MD Jun 27, 2020 13:47
--- NOTE | 2020-06-27 14:02 | NUR ---
RESPIRATORY NOTE: FIO2 DECREASED TO 80%. ORDER TO KEEP SPO2 ABOVE 90%. ABG TO BE DRAWN IN FOUR HOURS.
--- NOTE | 2020-06-27 14:59 | NUR ---
NURSE NOTES: Hand over report to Sue AGUIRRE.
--- NOTE | 2020-06-27 15:15 | NUR ---
NURSE NOTES: received report TIMOTHY Roque ,patient on BIPAP,on heparin drip
[2020-06-27 16:30] VITALS: BP 133/61
--- NOTE | 2020-06-27 17:22 | NUR ---
NURSE NOTES: Received report from TIMOTHY Rogers. Pt is awake, A/Ox4, no signs of distress noted. O2 saturation 98% on BiPAP 18/10 100%. telemetry monitor shows SR. BP and Temp within normal range. R AC 20g running heparin drip at 18mc/kg/min at a rate of 23ml/hr. No signs of infiltration or phlebitis noted. HOB elevated, call light within reach, side rails x2, bed alarmed, locked, and in lowest postion. Will continue plan of care, will continue to monitor. Addendum: 06/28/20 at 0003 by Alfreda Davis RN Time 1921
--- NOTE | 2020-06-27 19:21 | NUR ---
HAND-OFF: Report given to TIMOTHY Barry,patient resting on BIPAP O2 saturation 97 %,head high fowlers,on heparin drip
[2020-06-27 20:00] VITALS: BP 120/60
--- NOTE | 2020-06-27 22:41 | NUR ---
NURSE NOTES: Oral care performed. Pt noted to have desaturated to 81% while off bipap for <30s. O2 saturation back up to 97% on BiPAP. Will continue plan of care. Will continue to monitor.
[2020-06-28] VITALS: BP 122/67
--- NOTE | 2020-06-28 01:41 | NUR ---
NURSE NOTES: Pt is SB, lowest 29BPM, averaging 45 when sleeping. Pt is asymptomatic, all vitals within normal range. No complaints from pt. Will continue to monitor.
[2020-06-28 04:00] VITALS: BP 122/74
--- NOTE | 2020-06-28 04:14 | NUR ---
NURSE NOTES: Pt is asleep, HR 47, O2 saturation 99% on BiPAP. No distress noted. Will continue to monitor.
--- NOTE | 2020-06-28 07:05 | NUR ---
NURSE HAND-OFF REPORT: Important Events on Shift:[No acute events during shift] Patient Status: [stable] Diet: [Full liquid] Pending Orders: [NA] Pending Results/Labs:[NA] Pending MD notification:[NA] Latest Vital Signs: Temperature 97.9 , Pulse 52 , B/P 122 /74 , Respiratory Rate 26 , O2 SAT 98 , Bi-pap, O2 Flow Rate 15.0 . Vital Sign Comment: [Stable] EKG Rhythm: Sinus Rhythm Rhythm change?: N MD Notified?: - MD Response: Latest Mcdowell Fall Score: 20 Fall Risk: Low Risk Safety Measures: Call light Within Reach, Bed Alarm Zone 2, Side Rails Side Rails x3, Bed position Low and Locked. Fall Precautions: Door Sign Report given to [TIMOTHY Sloano].
--- NOTE | 2020-06-28 07:20 | NUR ---
NURSE NOTES: Received report from TIMOTHY Gant. Patient in bed resting, no active s/s cardiac, respiratory distress noticed at this time. Patient AOx4, on BIPAP 18/10 Fio2 100%, endorsed tried Non-rebreather mask last night, unable to tolerate, will continue to follow up. IV on right AC 20G, asymptomatic, patent, intact. Heparin drip running @ 18 unit/kg/hr, rate of 23.04ml/h. Bed in lowest position, side rails upx3, call light within reach, bed alarm on, urinal at easy reach. Will continue to monitor. Addendum: 06/28/20 at 1018 by RAFITA AYALA RN patient was not desaturating on non-rebreather, Patient was Desaturating on BIPAP Fio2 80%.
[2020-06-28 08:00] VITALS: BP 111/63
[2020-06-28] MEDS: dexAMETHasone 10mg/ml Inj IV SCH (08:40)
[2020-06-28] MEDS: Pantoprazole Inj IVP SCH (08:40)
[2020-06-28] MEDS: Docusate 100mg/10ml Liq NG SCH ×2 (08:40→17:28)
[2020-06-28] MEDS: Aspirin Baby 81mg ORAL SCH (08:40)
[2020-06-28 12:00] VITALS: BP 120/64
--- NOTE | 2020-06-28 13:00 | NUR ---
NURSE NOTES: Per Dr. Vences, Stat CBC BMP. Order noted, entered, carried out. Will continue to monitor. Addendum: 06/28/20 at 1334 by RAFITA AYALA RN FATOUMATA Quezada, STAT CBC and BMP.
[2020-06-28] MEDS ORDERED: Tubing IV Secondary IV ONE (13:19)
[2020-06-28] MEDS ORDERED: NS 275ml ONE (13:19)
--- NOTE | 2020-06-28 13:21 | Pulmonology Progress Note ---
Subjective ROS Limited/Unobtainable: Yes Interval Events: seen in SDU Constitutional: Denies: fever HEENT: Repors: no symptoms Respiratory: Reports: no symptoms Cardiovascular: Reports: no symptoms Gastrointestinal/Abdominal: Reports: no symptoms Allergies: Coded Allergies: No Known Allergies (Unverified , 06/18/20) Objective Last 24 Hour Vital Signs Date Time Temp Pulse Resp B/P (MAP) Pulse Ox O2 Delivery O2 Flow Rate FiO2 06/28/20 08:00 100 06/28/20 08:00 Bi-pap Bi-pap 06/28/20 08:00 97.4 52 24 111/63 (79) 97 06/28/20 08:00 56 06/28/20 04:00 47 06/28/20 04:00 100 06/28/20 04:00 97.9 52 26 122/74 (90) 98 06/28/20 04:00 Bi-pap Bi-pap 06/28/20 00:56 49 23 99 100 06/28/20 00:00 97.7 47 25 122/67 (85) 99 06/28/20 00:00 42 06/28/20 00:00 Bi-pap Bi-pap 06/27/20 20:00 52 06/27/20 20:00 97.5 66 21 120/60 (80) 95 06/27/20 20:00 100 06/27/20 20:00 Bi-pap Bi-pap 06/27/20 18:23 63 29 96 100 06/27/20 16:30 98.4 56 22 133/61 (85) 95 06/27/20 16:30 Bi-pap Bi-pap 06/27/20 16:00 58 06/27/20 16:00 80 06/27/20 14:02 65 30 95 80 Intake and Output 06/27/20 06/28/20 19:00 07:00 Intake Total 276.48 ml 253.44 ml Balance 276.48 ml 253.44 ml IV Total 276.48 ml 253.44 ml Objective seen in SDU, on BiPAP saturating at 95% with current setting General Appearance: no acute distress HEENT: normocephalic Respiratory: chest wall non-tender, lungs clear Cardiovascular: normal peripheral pulses Abdomen: normal bowel sounds Extremities: no cyanosis Laboratory Tests 06/28/20 04:20: Activated Partial Thromboplast Time 87H Current Medications Medications (Trade) Dose Ordered Sig/Yoselin Route PRN Reason Start Time Stop Time Status Last Admin Dose Admin Acetaminophen (Tylenol) 650 mg Q6H PRN ORAL For Pain 06/18/20 22:00 07/18/20 21:59 Aspirin (ASA) 81 mg DAILY ORAL 06/20/20 09:00 08/04/20 08:59 06/28/20 08:40 Docusate Sodium (Colace) 100 mg TWICE A DAY NG 06/25/20 18:00 07/25/20 17:59 06/28/20 08:40 Furosemide (Lasix) 40 mg DAILY IV 06/25/20 12:30 07/25/20 12:29 06/28/20 08:40 Heparin Sodium/ Dextrose 500 ml @ 23.04 mls/ hr ADJUST PER PROTOCOL IV 06/26/20 22:15 07/26/20 22:14 06/27/20 11:40 Ondansetron HCl (Zofran) 4 mg Q6H PRN IVP Nausea & Vomiting 06/18/20 22:00 07/18/20 21:59 Pantoprazole (Protonix) 40 mg DAILY IVP 06/20/20 09:00 07/20/20 08:59 06/28/20 08:40 Assessment/Plan Assessment/Plan 1. COVID-19 pneumonia. - s/p decadron (06/22-06/28) - s/p broad-spectrum antibiotics - s/p remdesivir - CXR 06/26 better 2. Respiratory failure. - currently on BiPAP saturating at 95%; failed lowering FiO2 yesterday 3. Pulmonary embolism. - Continue heparin infusion 4. Troponin leak. Attempted venti-mask.. unsuccessful On clear liquid diet; will advance to full liquid The care of this patient was discussed with my supervising physician Time spent for this encounter was approximately 31 minutes Jhonny Vences Jun 28, 2020 13:21
[2020-06-28 13:59] LABS: HEMOGLOBIN 15.5 G/DL (14.2-18.0); MEAN CORPUSCULAR VOLUME 93 FL (80-99); PLATELET COUNT 190 K/UL (150-450); RED BLOOD COUNT 5.03 M/UL (4.70-6.10); RED CELL DISTRIBUTION WIDTH 12.7 % (11.6-14.8); WHITE BLOOD COUNT 14.2 K/UL (4.8-10.8)
[2020-06-28] MEDS: Heparin 25,000u/D5W 500ml 500 ML IV SCH (14:07)
[2020-06-28 14:23] LABS: ANION GAP 5 mmol/L (5-15); BLOOD UREA NITROGEN 28 mg/dL (7-18); CARBON DIOXIDE 31 MMOL/L (21-32); CHLORIDE 98 MMOL/L (98-107); CREATININE 0.9 MG/DL (0.55-1.30); POTASSIUM 4.2 MMOL/L (3.5-5.1); SODIUM 134 MMOL/L (136-145)
[2020-06-28 16:00] VITALS: BP 113/68
--- NOTE | 2020-06-28 19:11 | NUR ---
NURSE HAND-OFF REPORT: Important Events on Shift:NA Patient Status: stable Diet: Full liquid Pending Orders: na Pending Results/Labs:na Pending MD notification:na Latest Vital Signs: Temperature 97.7 , Pulse 62 , B/P 113 /68 , Respiratory Rate 24 , O2 SAT 98 , Bi-pap, O2 Flow Rate 15.0 . Vital Sign Comment: stable, SB when asleep EKG Rhythm: Sinus Rhythm Rhythm change?: N MD Notified?: - MD Response: Latest Mcdowell Fall Score: 20 Fall Risk: Low Risk Safety Measures: Call light Within Reach, Bed Alarm Zone 2, Side Rails Side Rails x3, Bed position Low and Locked. Fall Precautions: Door Sign Report given to TIMOTHY Christiansen.
--- NOTE | 2020-06-28 19:13 | NUR ---
NURSE NOTES: Received report from TIMOTHY Solano. Pt in bed awake, A/O x 4. Verbally responsive and able to make needs known. Denies any pain upon assessment. In no apparent cardiac and respiratory distress noted. SB owith HR of 54 on alarm security or surveillance monitor. On bipap with prescribed setting of 18/10 Fio2 of 100%. Saturating well @97%. No sob noted. On Full liquid diet, with IV access R AC #20g running Heparin 18 units 2 23.04 ml/hr.Safety measures in place, bed in lowest positioned and locked. Call light within reach. Will continue to monitor and plan of care.
[2020-06-28 20:00] VITALS: BP 104/56
[2020-06-29] VITALS: BP 117/70
--- NOTE | 2020-06-29 01:10 | NUR ---
NURSE NOTES: Pt in bed awake. In no apparent distress noted. Tolerating bipap settings and saturating well @100%. Oral care provided. Will continue to monitor and plan of care.
[2020-06-29 04:00] VITALS: BP 115/60
[2020-06-29 04:20] LABS: HEMATOCRIT 45.8 % (42.0-52.0); HEMOGLOBIN 15.7 G/DL (14.2-18.0); MEAN CORPUSCULAR VOLUME 91 FL (80-99); PLATELET COUNT 172 K/UL (150-450); RED BLOOD COUNT 5.04 M/UL (4.70-6.10); RED CELL DISTRIBUTION WIDTH 13.3 % (11.6-14.8); WHITE BLOOD COUNT 12.7 K/UL (4.8-10.8)
[2020-06-29 04:36] LABS: ALANINE AMINOTRANSFERASE 85 U/L (12-78); ALBUMIN 2.2 G/DL (3.4-5.0); ALBUMIN/GLOBULIN RATIO 0.5 (1.0-2.7); ALKALINE PHOSPHATASE 109 U/L (46-116); ANION GAP 5 mmol/L (5-15); ASPARTATE AMINO TRANSFERASE 27 U/L (15-37); BILIRUBIN,TOTAL 0.8 MG/DL (0.2-1.0); BLOOD UREA NITROGEN 28 mg/dL (7-18); CALCIUM 8.5 MG/DL (8.5-10.1); CARBON DIOXIDE 31 MMOL/L (21-32); CHLORIDE 102 MMOL/L (98-107); CREATININE 0.7 MG/DL (0.55-1.30); SODIUM 137 MMOL/L (136-145)
--- NOTE | 2020-06-29 04:42 | NUR ---
NURSE NOTES: Pt in bed, awake, watching television. In no apparent distress noted. Sponge bath given, tolerated well. Gown and bed linens changed. No bowel movement noted.
--- NOTE | 2020-06-29 05:00 | NUR ---
NURSE NOTES: Received a call from [facility] regarding the Heparin drip to hold it for 30 mins, start it back @ 0530 and titrate the dose from 18 units/kg/hr to 15 units/kg/hr. PTT level is 106.
--- NOTE | 2020-06-29 05:30 | NUR ---
NURSE NOTES: Restarted Heparin drip running @ 18units/kg/hr.
--- NOTE | 2020-06-29 07:36 | NUR ---
NURSE HAND-OFF REPORT: Important Events on Shift: Stable Patient Status: Stable Diet: Full Liquid diet Pending Orders: Pending Results/Labs: Pending MD notification: Latest Vital Signs: Temperature 97.7 , Pulse 59 , B/P 115 /60 , Respiratory Rate 22 , O2 SAT 98 , Bi-pap, O2 Flow Rate 15.0 . Vital Sign Comment: EKG Rhythm: Sinus Bradycardia Rhythm change?: N MD Notified?: - MD Response: Latest Mcdowell Fall Score: 20 Fall Risk: Low Risk Safety Measures: Call light Within Reach, Bed Alarm Zone 2, Side Rails Side Rails x3, Bed position Low and Locked. Fall Precautions: Door Sign Report given to TIMOTHY Canseco.
[2020-06-29 08:00] VITALS: BP 116/60
[2020-06-29] MEDS: Docusate 100mg/10ml Liq NG SCH ×2 (08:22→16:54)
[2020-06-29] MEDS: Pantoprazole Inj IVP SCH (08:22)
[2020-06-29] MEDS: Aspirin Baby 81mg ORAL SCH (08:22)
--- NOTE | 2020-06-29 10:57 | NUR ---
NURSE NOTES: Received patient in bed awake. Bipap on, no acute distress. IV line intact and patent. HOB elevated. Bed locked in low position. Call light within reach. Will continue plan of care.
--- NOTE | 2020-06-29 11:13 | Pulmonology Progress Note ---
Subjective ROS Limited/Unobtainable: Yes Interval Events: seen in SDU Constitutional: Denies: fever HEENT: Repors: no symptoms Respiratory: Reports: no symptoms Cardiovascular: Reports: no symptoms Gastrointestinal/Abdominal: Reports: no symptoms Allergies: Coded Allergies: No Known Allergies (Unverified , 06/18/20) Objective Last 24 Hour Vital Signs Date Time Temp Pulse Resp B/P (MAP) Pulse Ox O2 Delivery O2 Flow Rate FiO2 06/29/20 08:00 Bi-pap Bi-pap 06/29/20 08:00 100 06/29/20 08:00 97.7 79 31 116/60 (78) 92 06/29/20 08:00 70 06/29/20 07:40 83 28 93 100 06/29/20 04:00 Bi-pap Bi-pap 06/29/20 04:00 100 06/29/20 04:00 97.7 59 22 115/60 (78) 98 06/29/20 03:08 53 06/29/20 00:10 55 25 98 100 06/29/20 00:00 97.9 56 21 117/70 (86) 97 06/29/20 00:00 100 06/29/20 00:00 56 06/29/20 00:00 Bi-pap Bi-pap 06/28/20 20:00 Bi-pap Bi-pap 06/28/20 20:00 100 06/28/20 20:00 97.9 61 25 104/56 (72) 97 06/28/20 19:32 58 06/28/20 19:15 56 28 98 100 06/28/20 16:00 97.7 62 24 113/68 (83) 98 06/28/20 16:00 60 06/28/20 16:00 Bi-pap Bi-pap 06/28/20 16:00 100 06/28/20 12:45 67 31 94 100 06/28/20 12:00 Bi-pap Bi-pap 06/28/20 12:00 61 06/28/20 12:00 97.6 56 24 120/64 (82) 97 06/28/20 12:00 100 Intake and Output 06/28/20 06/29/20 19:00 07:00 Intake Total 503.44 ml 359.20 ml Output Total 950 ml 300 ml Balance -446.56 ml 59.20 ml Intake Oral 250 ml 100 ml IV Total 253.44 ml 259.20 ml Output Urine Total 950 ml 300 ml # Voids 4 Objective seen in SDU, on BiPAP saturating at 95% with current setting General Appearance: no acute distress HEENT: normocephalic Respiratory: chest wall non-tender, lungs clear Cardiovascular: normal peripheral pulses Abdomen: normal bowel sounds Extremities: no cyanosis Laboratory Tests 06/28/20 13:41: White Blood Count 14.2H, Red Blood Count 5.03, Hemoglobin 15.5, Hematocrit 47.0, Mean Corpuscular Volume 93, Mean Corpuscular Hemoglobin 30.8, Mean Corpuscular Hemoglobin Concent 33.0, Red Cell Distribution Width 12.7, Platelet Count 190, Mean Platelet Volume 9.7, Neutrophils (%) (Auto) , Lymphocytes (%) (Auto) , Monocytes (%) (Auto) , Eosinophils (%) (Auto) , Basophils (%) (Auto) , Differential Total Cells Counted 100, Neutrophils % (Manual) 96H, Lymphocytes % (Manual) 2L, Monocytes % (Manual) 2, Eosinophils % (Manual) 0, Basophils % (Manual) 0, Band Neutrophils 0, Platelet Estimate Adequate, Platelet Morphology Normal, Red Blood Cell Morphology Normal, Sodium Level 134L, Potassium Level 4.2, Chloride Level 98, Carbon Dioxide Level 31, Anion Gap 5, Blood Urea Nitrogen 28H, Creatinine 0.9, Estimat Glomerular Filtration Rate > 60, Glucose Level 247H, Calcium Level 9.0 06/29/20 04:10: White Blood Count 12.7H, Red Blood Count 5.04, Hemoglobin 15.7, Hematocrit 45.8, Mean Corpuscular Volume 91, Mean Corpuscular Hemoglobin 31.2H, Mean Corpuscular Hemoglobin Concent 34.4, Red Cell Distribution Width 13.3, Platelet Count 172, Mean Platelet Volume 7.7, Neutrophils (%) (Auto) , Lymphocytes (%) (Auto) , Monocytes (%) (Auto) , Eosinophils (%) (Auto) , Basophils (%) (Auto) , Differential Total Cells Counted 100, Neutrophils % (Manual) 93H, Lymphocytes % (Manual) 3L, Monocytes % (Manual) 4, Eosinophils % (Manual) 0, Basophils % (Manual) 0, Band Neutrophils 0, Platelet Estimate Adequate, Platelet Morphology Normal, Red Blood Cell Morphology Normal, Sodium Level 137, Potassium Level 4.0, Chloride Level 102, Carbon Dioxide Level 31, Anion Gap 5, Blood Urea Nitrogen 28H, Creatinine 0.7, Estimat Glomerular Filtration Rate > 60, Glucose Level 168H , Calcium Level 8.5, Activated Partial Thromboplast Time 106H, Total Bilirubin 0.8, Aspartate Amino Transf (AST/SGOT) 27, Alanine Aminotransferase (ALT/SGPT) 85H, Alkaline Phosphatase 109, Total Protein 6.7, Albumin 2.2L, Globulin 4.5, Albumin/Globulin Ratio 0.5L Current Medications Medications (Trade) Dose Ordered Sig/Yoselin Route PRN Reason Start Time Stop Time Status Last Admin Dose Admin Acetaminophen (Tylenol) 650 mg Q6H PRN ORAL For Pain 06/18/20 22:00 07/18/20 21:59 Aspirin (ASA) 81 mg DAILY ORAL 06/20/20 09:00 08/04/20 08:59 06/29/20 08:22 Docusate Sodium (Colace) 100 mg TWICE A DAY NG 06/25/20 18:00 07/25/20 17:59 06/29/20 08:22 Furosemide (Lasix) 40 mg DAILY IV 06/25/20 12:30 07/25/20 12:29 06/29/20 08:22 Heparin Sodium/ Dextrose 500 ml @ 19.2 mls/hr ADJUST PER PROTOCOL IV 06/26/20 22:15 07/26/20 22:14 06/28/20 14:07 Ondansetron HCl (Zofran) 4 mg Q6H PRN IVP Nausea & Vomiting 06/18/20 22:00 07/18/20 21:59 Pantoprazole (Protonix) 40 mg DAILY IVP 06/20/20 09:00 07/20/20 08:59 06/29/20 08:22 Assessment/Plan Assessment/Plan 1. COVID-19 pneumonia. - s/p decadron (06/22-06/28) - s/p broad-spectrum antibiotics - s/p remdesivir - CXR 06/26 better 2. Respiratory failure. - currently on BiPAP saturating at 95%; failed lowering FiO2 - will attempt weaning again 3. Pulmonary embolism. - Continue heparin infusion 4. Troponin leak. Attempted venti-mask.. unsuccessful On clear liquid diet; will advance to full liquid The care of this patient was discussed with my supervising physician Time spent for this encounter was approximately 31 minutes Jhonny Vences Jun 29, 2020 11:13
[2020-06-29 11:22] VITALS: BP 101/50
--- NOTE | 2020-06-29 11:28 | NUR ---
RD ASSESSMENT & RECOMMENDATIONS SEE CARE ACTIVITY FOR COMPLETE ASSESSMENT DAILY ESTIMATED NEEDS: Needs based on pulmonary 61kg abw 25-30 kcals/kg 4420-1045 total kcals 1-1.5 g protein/kg 61-92 g total protein 25-30 mL/kg 1655-1248 total fluid mLs NUTRITION DIAGNOSIS: Predicted poor po intake r/t respiratory status/ bipap use as evidenced by pt is covid ++, on bipap, desats when off device, diet now advanced from clear liquid diet to full liquid. CURRENT DIET: Full liquid PO DIET RECOMMENDATIONS: rec KENO MANAGER eval for diet->Regular diet ENTERAL NUTRITION RECOMMENDATIONS: Consult RD for non-oral TF recs if part of POC. ADDITIONAL RECOMMENDATIONS: 1) Pt unable to tolerate oral po, consider non oral feeds as medically able 2) On decadron w/ elev BG, rec niss w/ po intake -> now off decadron 3) Check HgA1C 4) KENO MANAGER eval for appropriate texture 5) Add Ensure Enlive TID w/ full liquid diet.
[2020-06-29] MEDS: Heparin 25,000u/D5W 500ml 500 ML IV SCH (11:42)
[2020-06-29] MEDS ORDERED: Heparin 5000 units/ml inj IV SCH (13:21)
[2020-06-29] MEDS ORDERED: Heparin 25,000u/D5W 500ml 500 ML IV SCH ×2 (13:22→20:19)
--- NOTE | 2020-06-29 13:28 | NUR ---
Supervisor Cap And Hat ProductionFour Horse Hitch Driver SI: Respiratory Failure, Pulmonary Emboli, COVID-19 T 98.2, HR 6600, RR 24, BP 101/50, O2 Sat 92% BIPAP FiO2 100%, O2 Sat 92% WBC 12.7, IS: Ceftriaxone IV Lasix IV Heparin IV Step Down Status
--- NOTE | 2020-06-29 13:34 | NUR ---
NURSE NOTES: Patient being weaned by RT from bipap. RT Og titrating FiO2, now at 80%.
--- NOTE | 2020-06-29 14:11 | NUR ---
NURSE NOTES: NURSE NOTES: Heparin 2500 units IV bolus given as per pharmacisit. Heparin drip rate changed from 15 to 17 units/kg/hr as per pharmacist. For timed PTT 6hrs from now.
[2020-06-29 16:00] VITALS: BP 102/61
--- NOTE | 2020-06-29 17:00 | NUR ---
NURSE NOTES: RT Foley set bipap to 90% FiO2.
--- NOTE | 2020-06-29 19:21 | NUR ---
NURSE HAND-OFF REPORT: Important Events on Shift: Patient Status: alert Diet: full liquid, put on hold by RN due to coughing and desaturation during PO intake Pending Orders: Pending Results/Labs: Pending MD notification: Latest Vital Signs: Temperature 97.3 , Pulse 81 , B/P 102 /61 , Respiratory Rate 22 , O2 SAT 94 , Bi-pap, O2 Flow Rate 15.0 . Vital Sign Comment: EKG Rhythm: Sinus Rhythm Rhythm change?: N MD Notified?: - MD Response: Latest Mcdowell Fall Score: 20 Fall Risk: Low Risk Safety Measures: Call light Within Reach, Bed Alarm Zone 2, Side Rails Side Rails x3, Bed position Low and Locked. Fall Precautions: Door Sign Report given to Kuldip RN.
--- NOTE | 2020-06-29 19:29 | NUR ---
NURSE NOTES: Received report from ITMOTHY Canseco. Pt in bed awake, A/O x 4. Verbally responsive and able to make needs known. Denies any pain upon assessment. In no apparent cardiac and respiratory distress noted. SR with HR of 77 on classroom monitor. On bipap with prescribed setting of 18/10 Fio2 of 90% saturating well @96%. No sob noted. On Full liquid diet, with IV access R AC #20g on going Heparin 17 unit/kg/hr running @21.76 ml/hr.Safety measures in place, bed in lowest positioned and locked. Call light within reach. Will continue to monitor and plan of care.
[2020-06-29 20:00] VITALS: BP 127/52
--- NOTE | 2020-06-29 20:30 | NUR ---
NURSE NOTES: Heparin drip down to 15 unit /kg/hr. Will order PTT in 6 hrs
[2020-06-30] VITALS: BP 121/57
--- NOTE | 2020-06-30 01:02 | NUR ---
NURSE NOTES: Pt in bed asleep. In no apparent distress noted. Tolerating bipap settings and saturating @95%. Will continue to monitor and plan of care.
--- NOTE | 2020-06-30 02:42 | Cardiology Progress Note ---
Subjective DATE OF SERVICE: Jun 29, 2020 Remains on bipap support, requiring high flow oxygen. Monitor: sinus rhythm with rare ectopics 2D Echo - normal LVEF, no signs RV strain, normal PA pressure of 30mm Hg Objective Last 24 Hour Vital Signs Date Time Temp Pulse Resp B/P (MAP) Pulse Ox O2 Delivery O2 Flow Rate FiO2 06/30/20 00:00 100 06/30/20 00:00 Bi-pap Bi-pap 06/30/20 00:00 98.2 76 32 121/57 (78) 94 06/29/20 23:07 83 06/29/20 22:56 68 19 96 90 06/29/20 20:00 98.1 88 34 127/52 (77) 96 06/29/20 20:00 100 06/29/20 20:00 Bi-pap Bi-pap 06/29/20 19:13 81 22 94 90 06/29/20 19:10 75 06/29/20 16:00 97.3 73 32 102/61 (75) 94 06/29/20 16:00 62 06/29/20 16:00 Bi-pap Bi-pap 06/29/20 16:00 85 06/29/20 15:36 75 26 95 85 06/29/20 12:00 100 06/29/20 12:00 Bi-pap Bi-pap 06/29/20 12:00 62 06/29/20 11:44 72 27 99 100 06/29/20 11:22 98.2 66 24 101/50 (67) 99 06/29/20 08:00 Bi-pap Bi-pap 06/29/20 08:00 100 06/29/20 08:00 97.7 79 31 116/60 (78) 92 06/29/20 08:00 70 06/29/20 07:40 83 28 93 100 06/29/20 04:00 Bi-pap Bi-pap 06/29/20 04:00 100 06/29/20 04:00 97.7 59 22 115/60 (78) 98 06/29/20 03:08 53 ROS: unchanged from 06/19/20 HEENT: other - bipap RHYTHM: NSR LUNGS: bilat. rhonchi and rales CARDIAC: normal rate, regular rhythm, normal S1 and S2 ABDOMEN: normal bowel sounds, soft, distended EXTREMITIES: normal range of motion, non-tender, trace edema Laboratory Tests Test 06/29/20 04:10 06/29/20 12:35 06/29/20 19:30 White Blood Count 12.7 K/UL (4.8-10.8) H Red Blood Count 5.04 M/UL (4.70-6.10) Hemoglobin 15.7 G/DL (14.2-18.0) Hematocrit 45.8 % (42.0-52.0) Mean Corpuscular Volume 91 FL (80-99) Mean Corpuscular Hemoglobin 31.2 PG (27.0-31.0) H Mean Corpuscular Hemoglobin Concent 34.4 G/DL (32.0-36.0) Red Cell Distribution Width 13.3 % (11.6-14.8) Platelet Count 172 K/UL (150-450) Mean Platelet Volume 7.7 FL (6.5-10.1) Neutrophils (%) (Auto) % (45.0-75.0) Lymphocytes (%) (Auto) % (20.0-45.0) Monocytes (%) (Auto) % (1.0-10.0) Eosinophils (%) (Auto) % (0.0-3.0) Basophils (%) (Auto) % (0.0-2.0) Differential Total Cells Counted 100 Neutrophils % (Manual) 93 % (45-75) H Lymphocytes % (Manual) 3 % (20-45) L Monocytes % (Manual) 4 % (1-10) Eosinophils % (Manual) 0 % (0-3) Basophils % (Manual) 0 % (0-2) Band Neutrophils 0 % (0-8) Platelet Estimate Adequate Platelet Morphology Normal Red Blood Cell Morphology Normal Activated Partial Thromboplast Time 106 SEC (23-33) H 58 SEC (23-33) H 104 SEC (23-33) H Sodium Level 137 MMOL/L (136-145) Potassium Level 4.0 MMOL/L (3.5-5.1) Chloride Level 102 MMOL/L (98-107) Carbon Dioxide Level 31 MMOL/L (21-32) Anion Gap 5 mmol/L (5-15) Blood Urea Nitrogen 28 mg/dL (7-18) H Creatinine 0.7 MG/DL (0.55-1.30) Estimat Glomerular Filtration Rate > 60 mL/min (>60) Glucose Level 168 MG/DL (74-106) H Calcium Level 8.5 MG/DL (8.5-10.1) Total Bilirubin 0.8 MG/DL (0.2-1.0) Aspartate Amino Transf (AST/SGOT) 27 U/L (15-37) Alanine Aminotransferase (ALT/SGPT) 85 U/L (12-78) H Alkaline Phosphatase 109 U/L (46-116) Total Protein 6.7 G/DL (6.4-8.2) Albumin 2.2 G/DL (3.4-5.0) L Globulin 4.5 g/dL Albumin/Globulin Ratio 0.5 (1.0-2.7) L Assessment/Plan Assessment/Plan COVID 19 PNA Hypoxia Ac pulmonary embolism Acute coronary syndrome/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 Full anticoagulation Monitor for sustained atrial arrhythmias Replace lytes as needed Insulin cov'g by Aden Meléndez MD Jun 30, 2020 02:42
[2020-06-30 03:23] LABS: HEMATOCRIT 48.7 % (42.0-52.0); MEAN CORPUSCULAR VOLUME 94 FL (80-99); PLATELET COUNT 170 K/UL (150-450); RED CELL DISTRIBUTION WIDTH 12.2 % (11.6-14.8); WHITE BLOOD COUNT 11.2 K/UL (4.8-10.8)
[2020-06-30] MEDS ORDERED: Heparin 5000 units/ml inj IV SCH (03:45)
[2020-06-30 03:49] LABS: ALANINE AMINOTRANSFERASE 78 U/L (12-78); ALBUMIN 2.2 G/DL (3.4-5.0); ALBUMIN/GLOBULIN RATIO 0.5 (1.0-2.7); ALKALINE PHOSPHATASE 117 U/L (46-116); ANION GAP 6 mmol/L (5-15); ASPARTATE AMINO TRANSFERASE 30 U/L (15-37); BILIRUBIN,TOTAL 1.1 MG/DL (0.2-1.0); BLOOD UREA NITROGEN 33 mg/dL (7-18); CALCIUM 8.5 MG/DL (8.5-10.1); CARBON DIOXIDE 32 MMOL/L (21-32); CHLORIDE 99 MMOL/L (98-107); CREATININE 0.8 MG/DL (0.55-1.30); POTASSIUM 3.7 MMOL/L (3.5-5.1); SODIUM 137 MMOL/L (136-145)
[2020-06-30 04:00] VITALS: BP 119/48
[2020-06-30] MEDS ORDERED: Heparin 25,000u/D5W 500ml 500 ML IV SCH (04:00)
[2020-06-30 04:04] LABS: BILIRUBIN,DIRECT 0.4 MG/DL (0.0-0.3)
--- NOTE | 2020-06-30 07:21 | NUR ---
NURSE HAND-OFF REPORT: Important Events on Shift: Stable Patient Status: Stable Diet: Full Liquid Pending Orders: Pending Results/Labs: Pending MD notification: Latest Vital Signs: Temperature 97.3 , Pulse 71 , B/P 119 /48 , Respiratory Rate 35 , O2 SAT 94 , Bi-pap, O2 Flow Rate 15.0 . Vital Sign Comment: Stable EKG Rhythm: Sinus Rhythm Rhythm change?: N MD Notified?: - MD Response: Latest Mcdowell Fall Score: 20 Fall Risk: Low Risk Safety Measures: Call light Within Reach, Bed Alarm Zone 2, Side Rails Side Rails x3, Bed position Low and Locked. Fall Precautions: Door Sign Report given to Beni Gomez RN .
[2020-06-30 08:00] VITALS: BP 127/52
--- NOTE | 2020-06-30 08:00 | NUR ---
NURSE NOTES: Pt awake/alert in bed, breathing comfortably on BIPAP, denies SOB and denies pain at this time. Vital signs stable with SR @ 72 on monitor. IV access RAC with Heparin drip running at 17 units/kg. Bed left in low position, side rails up x 2 and call light left near pt's hand.
[2020-06-30] MEDS: Docusate 100mg/10ml Liq NG SCH ×2 (09:07→17:46)
[2020-06-30] MEDS: Pantoprazole Inj IVP SCH (09:07)
[2020-06-30] MEDS: Aspirin Baby 81mg ORAL SCH (09:07)
--- NOTE | 2020-06-30 10:08 | NUR ---
Cortney Lynn (sister) [phone]
--- NOTE | 2020-06-30 11:54 | NUR ---
Urogynecology PhysicianCredit Rating Inspector SI: Respiratory Failure, Pulmonary Emboli, COVID-19 T 97.3, HR 71, RR 35, BP 119/48, O2 Sat 94% BIPAP 18/10 FiO2 100%, O2 Sat 94% WBC 11.2, IS: Lasix IV Heparin IV Step Down Status
[2020-06-30 12:00] VITALS: BP 121/57
--- NOTE | 2020-06-30 12:06 | Pulmonology Progress Note ---
Subjective ROS Limited/Unobtainable: Yes Interval Events: seen in SDU Constitutional: Denies: fever HEENT: Repors: no symptoms Respiratory: Reports: no symptoms Cardiovascular: Reports: no symptoms Gastrointestinal/Abdominal: Reports: no symptoms Allergies: Coded Allergies: No Known Allergies (Unverified , 06/18/20) Objective Last 24 Hour Vital Signs Date Time Temp Pulse Resp B/P (MAP) Pulse Ox O2 Delivery O2 Flow Rate FiO2 06/30/20 11:15 79 27 97 90 06/30/20 08:30 81 06/30/20 08:16 100 06/30/20 08:13 Bi-pap Bi-pap 06/30/20 07:49 67 23 97 90 06/30/20 04:00 Bi-pap Bi-pap 06/30/20 04:00 100 06/30/20 04:00 97.3 71 35 119/48 (71) 94 06/30/20 02:59 81 06/30/20 02:48 80 26 95 90 06/30/20 00:00 100 06/30/20 00:00 Bi-pap Bi-pap 06/30/20 00:00 98.2 76 32 121/57 (78) 94 06/29/20 23:07 83 06/29/20 22:56 68 19 96 90 06/29/20 20:00 98.1 88 34 127/52 (77) 96 06/29/20 20:00 100 06/29/20 20:00 Bi-pap Bi-pap 06/29/20 19:13 81 22 94 90 06/29/20 19:10 75 06/29/20 16:00 97.3 73 32 102/61 (75) 94 06/29/20 16:00 62 06/29/20 16:00 Bi-pap Bi-pap 06/29/20 16:00 85 06/29/20 15:36 75 26 95 85 Intake and Output 06/29/20 06/30/20 19:00 07:00 Intake Total 415.2 ml 337.28 ml Output Total 900 ml 500 ml Balance -484.8 ml -162.72 ml Intake Oral 300 ml 200 ml IV Total 115.2 ml 137.28 ml Output Urine Total 900 ml 500 ml Objective seen in SDU, on BiPAP saturating at 98% with current setting General Appearance: no acute distress HEENT: normocephalic Respiratory: chest wall non-tender, lungs clear Cardiovascular: normal peripheral pulses Abdomen: normal bowel sounds Extremities: no cyanosis Laboratory Tests 06/29/20 12:35: Activated Partial Thromboplast Time 58H 06/29/20 19:30: Activated Partial Thromboplast Time 104H 06/30/20 02:30: Activated Partial Thromboplast Time 64H, White Blood Count 11.2H, Red Blood Count 5.20, Hemoglobin 16.0, Hematocrit 48.7, Mean Corpuscular Volume 94, Mean Corpuscular Hemoglobin 30.7, Mean Corpuscular Hemoglobin Concent 32.8, Red Cell Distribution Width 12.2, Platelet Count 170, Mean Platelet Volume 9.1, Neutrophils (%) (Auto) , Lymphocytes (%) (Auto) , Monocytes (%) (Auto) , Eosinophils (%) (Auto) , Basophils (%) (Auto) , Sodium Level 137, Potassium Level 3.7, Chloride Level 99, Carbon Dioxide Level 32, Anion Gap 6, Blood Urea Nitrogen 33H, Creatinine 0.8, Estimat Glomerular Filtration Rate > 60, Glucose Level 181H, Calcium Level 8.5, Total Bilirubin 1.1H, Direct Bilirubin 0.4H, Aspartate Amino Transf (AST/SGOT) 30, Alanine Aminotransferase (ALT/SGPT) 78, Alkaline Phosphatase 117H, Total Protein 6.9, Albumin 2.2L, Globulin 4.7, Albumin/Globulin Ratio 0.5L 06/30/20 10:30: Activated Partial Thromboplast Time 92H Current Medications Medications (Trade) Dose Ordered Sig/Yoselin Route PRN Reason Start Time Stop Time Status Last Admin Dose Admin Acetaminophen (Tylenol) 650 mg Q6H PRN ORAL For Pain 06/18/20 22:00 07/18/20 21:59 Apixaban (Eliquis) 5 mg BID ORAL 06/30/20 18:00 09/28/20 17:59 UNV Aspirin (ASA) 81 mg DAILY ORAL 06/20/20 09:00 08/04/20 08:59 06/30/20 09:07 Dextrose/Sodium Chloride 1,000 ml @ 50 mls/hr Q20H IV 06/30/20 12:00 07/30/20 11:59 UNV Docusate Sodium (Colace) 100 mg TWICE A DAY NG 06/25/20 18:00 07/25/20 17:59 06/30/20 09:07 Furosemide (Lasix) 40 mg DAILY IV 06/25/20 12:30 07/25/20 12:29 06/30/20 09:07 Ondansetron HCl (Zofran) 4 mg Q6H PRN IVP Nausea & Vomiting 06/18/20 22:00 07/18/20 21:59 Pantoprazole (Protonix) 40 mg DAILY IVP 06/20/20 09:00 07/20/20 08:59 06/30/20 09:07 Assessment/Plan Assessment/Plan 1. COVID-19 pneumonia. - s/p decadron (06/22-06/28) - s/p broad-spectrum antibiotics - s/p remdesivir - CXR 06/26 better 2. Respiratory failure. - currently on BiPAP saturating at 98%; failed lowering FiO2 - will attempt weaning again 3. Pulmonary embolism. - s/p heparin - Started on Eliquis 5 mg PO BID 4. Troponin leak. - 2D echo showed LV EF 65% Attempted venti-mask.. unsuccessful On clear liquid diet; will advance to full liquid; The care of this patient was discussed with my supervising physician Time spent for this encounter was approximately 31 minutes Jhonny Vences Jun 30, 2020 12:06
[2020-06-30] MEDS: D5NS 1,000 ML IV SCH (12:07)
--- NOTE | 2020-06-30 13:02 | NUR ---
Product Safety Technician: Pt moved to high flow n/c started complaining about not being able to breathe. Pt exhibits accessory muscle use and speaking in broken sent. RT called to put pt back on BIPAP. After 5 min on BIPAP, pt resting comfortably, O2 sat of 91%.
--- NOTE | 2020-06-30 13:10 | NUR ---
NURSE NOTES: Call placed to Dr Reyes. informed of placing pt back on BIPAP. No new orders.
--- NOTE | 2020-06-30 13:26 | NUR ---
IMMIGRATION INSPECTOR NOTE Pt provided verbal consent to release information to his sister, Cortney Lynn [phone]. Pt reports he has two sisters.
[2020-06-30 16:00] VITALS: BP 103/53
[2020-06-30] MEDS: Eliquis 5mg tablet ORAL SCH (17:46)
--- NOTE | 2020-06-30 19:15 | NUR ---
NURSE NOTES: Pt received from TIMOTHY Perdomo alert and oriented x4 on Bipap 18/10 100% FiO2, saturating at 97%. IV site asymptomatic and patent on R ac 20g, running to D5NS at 50. track welder on - Sinus Rhythm. Bed in lowest position, bed alarm on. Call light and belongings within reach.
[2020-06-30 20:00] VITALS: BP 97/62
--- NOTE | 2020-06-30 22:18 | NUR ---
NURSE NOTES: Noted pressure injury on nose - purplish with partial thickness loss noted. WCP taken, protocol initiated, and uploaded onto EMR.
[2020-07-01] VITALS: BP 105/76
[2020-07-01] MEDS: D5NS 1,000 ML IV SCH (01:01)
--- NOTE | 2020-07-01 01:10 | Cardiology Progress Note ---
Subjective DATE OF SERVICE: Jun 30, 2020 Remains on non-rebreather mask requiring high flow oxygen. Monitor: sinus rhythm with rare ectopics 2D Echo - normal LVEF, no signs RV strain, normal PA pressure of 30mm Hg Objective Last 24 Hour Vital Signs Date Time Temp Pulse Resp B/P (MAP) Pulse Ox O2 Delivery O2 Flow Rate FiO2 07/01/20 00:00 Bi-pap Bi-pap 07/01/20 00:00 98.8 64 25 105/76 (86) 98 07/01/20 00:00 71 06/30/20 22:39 72 19 98 90 06/30/20 20:00 Bi-pap Bi-pap 06/30/20 20:00 98.2 74 22 97/62 (74) 98 06/30/20 20:00 95 06/30/20 20:00 100 06/30/20 18:47 70 30 99 90 06/30/20 16:00 78 06/30/20 16:00 98.2 77 24 103/53 (70) 97 06/30/20 16:00 Bi-pap Bi-pap 06/30/20 16:00 100 06/30/20 15:20 71 19 99 90 06/30/20 12:35 83 06/30/20 12:00 98.2 84 27 121/57 (78) 97 06/30/20 12:00 Bi-pap Bi-pap 06/30/20 12:00 40.0 06/30/20 11:15 79 27 97 90 06/30/20 08:30 81 06/30/20 08:16 100 06/30/20 08:13 Bi-pap Bi-pap 06/30/20 08:00 98.1 75 24 127/52 (77) 98 06/30/20 07:49 67 23 97 90 06/30/20 04:00 Bi-pap Bi-pap 06/30/20 04:00 100 06/30/20 04:00 97.3 71 35 119/48 (71) 94 06/30/20 02:59 81 06/30/20 02:48 80 26 95 90 ROS: unchanged from 06/19/20 HEENT: other - high flow mask RHYTHM: NSR LUNGS: bilat. rhonchi and rales CARDIAC: normal rate, regular rhythm, normal S1 and S2 ABDOMEN: normal bowel sounds, soft, distended EXTREMITIES: normal range of motion, non-tender, trace edema Laboratory Tests Test 06/30/20 02:30 06/30/20 10:30 White Blood Count 11.2 K/UL (4.8-10.8) H Red Blood Count 5.20 M/UL (4.70-6.10) Hemoglobin 16.0 G/DL (14.2-18.0) Hematocrit 48.7 % (42.0-52.0) Mean Corpuscular Volume 94 FL (80-99) Mean Corpuscular Hemoglobin 30.7 PG (27.0-31.0) Mean Corpuscular Hemoglobin Concent 32.8 G/DL (32.0-36.0) Red Cell Distribution Width 12.2 % (11.6-14.8) Platelet Count 170 K/UL (150-450) Mean Platelet Volume 9.1 FL (6.5-10.1) Neutrophils (%) (Auto) % (45.0-75.0) Lymphocytes (%) (Auto) % (20.0-45.0) Monocytes (%) (Auto) % (1.0-10.0) Eosinophils (%) (Auto) % (0.0-3.0) Basophils (%) (Auto) % (0.0-2.0) Activated Partial Thromboplast Time 64 SEC (23-33) H 92 SEC (23-33) H Sodium Level 137 MMOL/L (136-145) Potassium Level 3.7 MMOL/L (3.5-5.1) Chloride Level 99 MMOL/L (98-107) Carbon Dioxide Level 32 MMOL/L (21-32) Anion Gap 6 mmol/L (5-15) Blood Urea Nitrogen 33 mg/dL (7-18) H Creatinine 0.8 MG/DL (0.55-1.30) Estimat Glomerular Filtration Rate > 60 mL/min (>60) Glucose Level 181 MG/DL (74-106) H Calcium Level 8.5 MG/DL (8.5-10.1) Total Bilirubin 1.1 MG/DL (0.2-1.0) H Direct Bilirubin 0.4 MG/DL (0.0-0.3) H Aspartate Amino Transf (AST/SGOT) 30 U/L (15-37) Alanine Aminotransferase (ALT/SGPT) 78 U/L (12-78) Alkaline Phosphatase 117 U/L (46-116) H Total Protein 6.9 G/DL (6.4-8.2) Albumin 2.2 G/DL (3.4-5.0) L Globulin 4.7 g/dL Albumin/Globulin Ratio 0.5 (1.0-2.7) L Assessment/Plan Assessment/Plan COVID 19 PNA Hypoxia Ac pulmonary embolism Acute coronary syndrome/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 Full anticoagulation Monitor for sustained atrial arrhythmias Replace lytes as needed Insulin cov'g by Aden Meléndez MD Jul 01, 2020 01:10
--- NOTE | 2020-07-01 02:08 | Cardiology Report ---
APPROVED REPORT EKG Measurement Heart [id number] <Conclusion> Sinus tachycardia Nonspecific ST abnormality Abnormal ECG
[2020-07-01 04:00] VITALS: BP 102/61
[2020-07-01 05:30] LABS: HEMATOCRIT 41.1 % (42.0-52.0); HEMOGLOBIN 14.2 G/DL (14.2-18.0); MEAN CORPUSCULAR VOLUME 91 FL (80-99); PLATELET COUNT 151 K/UL (150-450); RED BLOOD COUNT 4.51 M/UL (4.70-6.10); RED CELL DISTRIBUTION WIDTH 13.5 % (11.6-14.8); WHITE BLOOD COUNT 8.8 K/UL (4.8-10.8)
[2020-07-01 06:12] LABS: ALANINE AMINOTRANSFERASE 41 U/L (12-78); ALBUMIN/GLOBULIN RATIO 0.4 (1.0-2.7); ALKALINE PHOSPHATASE 98 U/L (46-116); ANION GAP 5 mmol/L (5-15); ASPARTATE AMINO TRANSFERASE 21 U/L (15-37); BLOOD UREA NITROGEN 27 mg/dL (7-18); CALCIUM 8.8 MG/DL (8.5-10.1); CARBON DIOXIDE 31 MMOL/L (21-32); CHLORIDE 100 MMOL/L (98-107); CREATININE 0.7 MG/DL (0.55-1.30); POTASSIUM 3.7 MMOL/L (3.5-5.1); SODIUM 136 MMOL/L (136-145)
--- NOTE | 2020-07-01 07:21 | NUR ---
NURSE HAND-OFF REPORT: Important Events on Shift: Pt maintained saturation of 97-100% on Bipap 18/10 100% FiO2. Noted pressure injury on anterior nose bridge, WCP initiated. Patient Status: Ongoing Diet: full liquid Pending Orders: n/a Pending Results/Labs: n/a Pending MD notification: n/a Latest Vital Signs: Temperature 98.8 , Pulse 60 , B/P 102 /61 , Respiratory Rate 25 , O2 SAT 97 , Bi-pap, O2 Flow Rate 40.0 . Vital Sign Comment: WNL EKG Rhythm: Sinus Rhythm Rhythm change?: N MD Notified?: - MD Response: Latest Mcdowell Fall Score: 20 Fall Risk: Low Risk Safety Measures: Call light Within Reach, Bed Alarm Zone 2, Side Rails Side Rails x3, Bed position Low and Locked. Fall Precautions: Yes Door Sign Report given to TIMOTHY Perdomo.
[2020-07-01 08:00] VITALS: BP 110/71
--- NOTE | 2020-07-01 08:00 | NUR ---
NURSE NOTES: Pt awake/alert in bed, breathing comfortably on BIPAP, denies SOB and denies pain at this time. Pt asking for a drink, mask temp removed and juice given. Vital signs stable with SR @ 66 on monitor. IV access RAC with D5NS running at 50 ml/hr. Bruise developing on bridge of nose from BIPAP mask, Cavilon skin barrier film applied. Bed left in low position, side rails up x 2 and call light left near pt's hand.
[2020-07-01] MEDS: Aspirin Baby 81mg ORAL SCH (09:00)
[2020-07-01] MEDS: Eliquis 5mg tablet ORAL SCH ×2 (09:00→18:28)
[2020-07-01] MEDS: Pantoprazole Inj IVP SCH (09:00)
[2020-07-01] MEDS: Docusate 100mg/10ml Liq NG SCH ×2 (09:00→18:00)
[2020-07-01 12:00] VITALS: BP 106/63
--- NOTE | 2020-07-01 13:50 | NUR ---
Server Software EngineerCall Box Wirer SI: Respiratory Failure, Pulmonary Emboli, COVID-19 T 97.8, HR 61, RR 25, BP 106/63, O2 Sat 100% BIPAP 18/10 FiO2 100%, O2 Sat 94% WBC 8.8, IS: Lasix IV D5NS @ 50cc/hr Step Down Status
--- NOTE | 2020-07-01 14:50 | Pulmonology Progress Note ---
Subjective ROS Limited/Unobtainable: Yes Interval Events: seen in SDU Constitutional: Denies: fever HEENT: Repors: no symptoms Respiratory: Reports: no symptoms Cardiovascular: Reports: no symptoms Gastrointestinal/Abdominal: Reports: no symptoms Allergies: Coded Allergies: No Known Allergies (Unverified , 06/18/20) Objective Last 24 Hour Vital Signs Date Time Temp Pulse Resp B/P (MAP) Pulse Ox O2 Delivery O2 Flow Rate FiO2 07/01/20 12:00 Bi-pap Bi-pap 07/01/20 12:00 61 07/01/20 12:00 97.8 79 25 106/63 (77) 100 07/01/20 12:00 100 07/01/20 08:40 100 07/01/20 08:39 Bi-pap Bi-pap 07/01/20 08:00 97.9 84 25 110/71 (84) 98 07/01/20 07:34 65 07/01/20 07:26 24 24 100 90 07/01/20 04:00 98.8 77 25 102/61 (75) 97 07/01/20 04:00 60 07/01/20 04:00 Bi-pap Bi-pap 07/01/20 04:00 100 07/01/20 03:26 60 20 100 90 07/01/20 00:00 Bi-pap Bi-pap 07/01/20 00:00 98.8 64 25 105/76 (86) 98 07/01/20 00:00 71 06/30/20 22:39 72 19 98 90 06/30/20 20:00 Bi-pap Bi-pap 06/30/20 20:00 98.2 74 22 97/62 (74) 98 06/30/20 20:00 95 06/30/20 20:00 100 06/30/20 18:47 70 30 99 90 06/30/20 16:00 78 06/30/20 16:00 98.2 77 24 103/53 (70) 97 06/30/20 16:00 Bi-pap Bi-pap 06/30/20 16:00 100 06/30/20 15:20 71 19 99 90 Intake and Output 06/30/20 07/01/20 19:00 07:00 Intake Total 250 ml 750 ml Output Total 500 ml 500 ml Balance -250 ml 250 ml Intake Oral 200 ml 250 ml IV Total 50 ml 500 ml Output Urine Total 500 ml 500 ml General Appearance: no acute distress HEENT: normocephalic Respiratory: chest wall non-tender, lungs clear Cardiovascular: normal peripheral pulses Abdomen: normal bowel sounds Extremities: no cyanosis Laboratory Tests 07/01/20 04:05: White Blood Count 8.8, Red Blood Count 4.51L, Hemoglobin 14.2, Hematocrit 41.1L, Mean Corpuscular Volume 91, Mean Corpuscular Hemoglobin 31.5H, Mean Corpuscular Hemoglobin Concent 34.6, Red Cell Distribution Width 13.5, Platelet Count 151, Mean Platelet Volume 8.8, Neutrophils (%) (Auto) , Lymphocytes (%) (Auto) , Monocytes (%) (Auto) , Eosinophils (%) (Auto) , Basophils (%) (Auto) , Sodium Level 136, Potassium Level 3.7, Chloride Level 100, Carbon Dioxide Level 31, Anion Gap 5, Blood Urea Nitrogen 27H, Creatinine 0.7, Estimat Glomerular Filtration Rate > 60, Glucose Level 120H, Calcium Level 8.8, Total Bilirubin 1.0, Aspartate Amino Transf (AST/SGOT) 21, Alanine Aminotransferase (ALT/SGPT) 41, Alkaline Phosphatase 98, Total Protein 6.7, Albumin 2.0L, Globulin 4.7, Albumin/Globulin Ratio 0.4L Current Medications Medications (Trade) Dose Ordered Sig/Yoselin Route PRN Reason Start Time Stop Time Status Last Admin Dose Admin Acetaminophen (Tylenol) 650 mg Q6H PRN ORAL For Pain 06/18/20 22:00 07/18/20 21:59 Apixaban (Eliquis) 5 mg BID ORAL 06/30/20 18:00 09/28/20 17:59 07/01/20 09:00 Aspirin (ASA) 81 mg DAILY ORAL 06/20/20 09:00 08/04/20 08:59 07/01/20 09:00 Dextrose/Sodium Chloride 1,000 ml @ 50 mls/hr Q20H IV 06/30/20 12:00 07/30/20 11:59 07/01/20 01:01 Docusate Sodium (Colace) 100 mg TWICE A DAY NG 06/25/20 18:00 07/25/20 17:59 07/01/20 09:00 Furosemide (Lasix) 40 mg DAILY IV 06/25/20 12:30 07/25/20 12:29 07/01/20 09:00 Ondansetron HCl (Zofran) 4 mg Q6H PRN IVP Nausea & Vomiting 06/18/20 22:00 07/18/20 21:59 Pantoprazole (Protonix) 40 mg DAILY IVP 06/20/20 09:00 07/20/20 08:59 07/01/20 09:00 Assessment/Plan Assessment/Plan IMPRESSION: 1. COVID-19 pneumonia. 2. Respiratory failure. 3. Pulmonary embolism. 4. Troponin leak. DISCUSSION: Continue Decadron, Now on Eliquis; heparin dc Continue antibiotics. Seen by ID for remdesivir. Maintain on nonrebreather mask Attempted venti-mask yesterday.. unsuccessful Will attempt again today Will check CXR Full liquid diet WIll dc Lasix and IV fluids Tea Peterson Omar Syed MD Jul 01, 2020 14:50
[2020-07-01 16:00] VITALS: BP 113/62
--- NOTE | 2020-07-01 16:49 | Diagnostic Imaging Report ---
Indication: Chest pain Technique: One view of the chest Comparison: 06/26/2020 Findings: Unchanged bilateral infiltrates. The heart size is borderline enlarged. Impression: Unchanged, over 5 days, findings as above.
--- NOTE | 2020-07-01 19:05 | NUR ---
NURSE NOTES: Pt is A/O x4 and verbally responsive. Pt is on BIPAP 18/10 with a saturation of 96%. Pt has no SOB or acute distress. No pain noted. Pt asking for a drink, mask temp removed and ensure given. laboratory monitor shows SR @ 66. Pt has IV access RAC 20G which is saline locked. Bed left in low position, side rails up x 2 with bed alarm on. Call light placed within reach and educated on usage. Will continue plan of care.
[2020-07-01 20:00] VITALS: BP 95/57
--- NOTE | 2020-07-01 23:01 | Cardiology Progress Note ---
Subjective DATE OF SERVICE: Jul 01, 2020 Remains on bipap support, requiring high flow oxygen. Monitor: sinus rhythm with rare ectopics 2D Echo - normal LVEF, no signs RV strain, normal PA pressure of 30mm Hg CXR (07/01) bilateral infiltrates without change Objective Last 24 Hour Vital Signs Date Time Temp Pulse Resp B/P (MAP) Pulse Ox O2 Delivery O2 Flow Rate FiO2 07/01/20 20:00 100 07/01/20 20:00 Bi-pap Bi-pap 07/01/20 20:00 98.1 71 21 95/57 (70) 97 07/01/20 19:29 66 16 100 90 07/01/20 19:06 70 07/01/20 16:00 97.6 83 24 113/62 (79) 97 07/01/20 16:00 Bi-pap Bi-pap 07/01/20 16:00 89 07/01/20 16:00 100 07/01/20 15:10 72 28 96 90 07/01/20 12:00 Bi-pap Bi-pap 07/01/20 12:00 61 07/01/20 12:00 97.8 79 25 106/63 (77) 100 07/01/20 12:00 100 07/01/20 11:00 79 20 100 90 07/01/20 08:40 100 07/01/20 08:39 Bi-pap Bi-pap 07/01/20 08:00 97.9 84 25 110/71 (84) 98 07/01/20 07:34 65 07/01/20 07:26 24 24 100 90 07/01/20 04:00 98.8 77 25 102/61 (75) 97 07/01/20 04:00 60 07/01/20 04:00 Bi-pap Bi-pap 07/01/20 04:00 100 07/01/20 03:26 60 20 100 90 07/01/20 00:00 Bi-pap Bi-pap 07/01/20 00:00 98.8 64 25 105/76 (86) 98 07/01/20 00:00 71 ROS: unchanged from 06/19/20 HEENT: other - bipap RHYTHM: NSR LUNGS: bilat. rhonchi and rales CARDIAC: normal rate, regular rhythm, normal S1 and S2 ABDOMEN: normal bowel sounds, soft, distended EXTREMITIES: normal range of motion, non-tender, trace edema Laboratory Tests Test 07/01/20 04:05 White Blood Count 8.8 K/UL (4.8-10.8) Red Blood Count 4.51 M/UL (4.70-6.10) L Hemoglobin 14.2 G/DL (14.2-18.0) Hematocrit 41.1 % (42.0-52.0) L Mean Corpuscular Volume 91 FL (80-99) Mean Corpuscular Hemoglobin 31.5 PG (27.0-31.0) H Mean Corpuscular Hemoglobin Concent 34.6 G/DL (32.0-36.0) Red Cell Distribution Width 13.5 % (11.6-14.8) Platelet Count 151 K/UL (150-450) Mean Platelet Volume 8.8 FL (6.5-10.1) Neutrophils (%) (Auto) % (45.0-75.0) Lymphocytes (%) (Auto) % (20.0-45.0) Monocytes (%) (Auto) % (1.0-10.0) Eosinophils (%) (Auto) % (0.0-3.0) Basophils (%) (Auto) % (0.0-2.0) Sodium Level 136 MMOL/L (136-145) Potassium Level 3.7 MMOL/L (3.5-5.1) Chloride Level 100 MMOL/L (98-107) Carbon Dioxide Level 31 MMOL/L (21-32) Anion Gap 5 mmol/L (5-15) Blood Urea Nitrogen 27 mg/dL (7-18) H Creatinine 0.7 MG/DL (0.55-1.30) Estimat Glomerular Filtration Rate > 60 mL/min (>60) Glucose Level 120 MG/DL (74-106) H Calcium Level 8.8 MG/DL (8.5-10.1) Total Bilirubin 1.0 MG/DL (0.2-1.0) Aspartate Amino Transf (AST/SGOT) 21 U/L (15-37) Alanine Aminotransferase (ALT/SGPT) 41 U/L (12-78) Alkaline Phosphatase 98 U/L (46-116) Total Protein 6.7 G/DL (6.4-8.2) Albumin 2.0 G/DL (3.4-5.0) L Globulin 4.7 g/dL Albumin/Globulin Ratio 0.4 (1.0-2.7) L Assessment/Plan Assessment/Plan COVID 19 PNA Hypoxia Ac pulmonary embolism Acute coronary syndrome/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 Full anticoagulation Monitor for sustained atrial arrhythmias Replace lytes as needed Insulin cov'g by Aden Meléndez MD Jul 01, 2020 23:01
[2020-07-02] VITALS: BP 94/58
--- NOTE | 2020-07-02 | NUR ---
NURSES NOTES: Multiple juices offered and tolerated well with assistance. Saturation continued to stay @ 95%.
--- NOTE | 2020-07-02 02:15 | NUR ---
NURSE NOTES: Ensure given to pt while being monitored and tolerated well. Oxygen saturation continued to stay about 93%.
[2020-07-02 04:00] VITALS: BP 93/56
--- NOTE | 2020-07-02 07:30 | NUR ---
NURSE NOTES: Received pt from TIMOTHY Brody, pt is awake and alert, pt has Bipap 18/10 FIO2 100%, Pt is on continues heart monitoring. pt has intact iv access RAC 20G SL. RN helped pt to take off bipap and eat breakfast and put on bipap again. pt tolerated well. All needs attended, bed is locked and is in the lowest position, call light within easy reach. will continue to monitor.
--- NOTE | 2020-07-02 07:34 | NUR ---
NURSE HAND-OFF REPORT: Important Events on Shift: Fluids given every 2 hours. Patient Status: Stable Diet: Full Liquid Pending Orders: Pending Results/Labs: Pending MD notification: Latest Vital Signs: Temperature 98.2 , Pulse 79 , B/P 93 /56 , Respiratory Rate 22 , O2 SAT 97 , Bi-pap, O2 Flow Rate 40.0 . Vital Sign Comment: EKG Rhythm: Sinus Rhythm Rhythm change?: N MD Notified?: - MD Response: Latest Mcdowell Fall Score: 20 Fall Risk: Low Risk Safety Measures: Call light Within Reach, Bed Alarm Zone 2, Side Rails Side Rails x3, Bed position Low and Locked. Fall Precautions: Door Sign Report given to Afsoon.
[2020-07-02 08:00] VITALS: BP 93/55
--- NOTE | 2020-07-02 09:43 | Infectious Diseases Prog Note ---
Assessment/Plan Assessment/Plan IMPRESSION: 1. Sepsis with tachycardia, tachypnea and leukocytosis. 2. COVID-19 pneumonia. 3. Pulmonary emboli. 4. Hypoxic respiratory failure, 5. Elevated troponin. RECOMMENDATION: Finished dexamethasone & Remdesivir course Subjective ROS Limited/Unobtainable: Yes Constitutional: Denies: fever Respiratory: Reports: shortness of breath, productive cough Allergies: Coded Allergies: No Known Allergies (Unverified , 06/18/20) Objective Last 24 Hour Vital Signs Date Time Temp Pulse Resp B/P (MAP) Pulse Ox O2 Delivery O2 Flow Rate FiO2 07/02/20 04:00 98.2 79 22 93/56 (68) 97 07/02/20 04:00 100 07/02/20 04:00 Bi-pap Bi-pap 07/02/20 04:00 84 07/02/20 01:45 56 17 100 90 07/02/20 00:00 Bi-pap Bi-pap 07/02/20 00:00 100 07/02/20 00:00 98.2 78 24 94/58 (70) 97 07/02/20 00:00 66 07/01/20 20:00 100 07/01/20 20:00 Bi-pap Bi-pap 07/01/20 20:00 98.1 71 21 95/57 (70) 97 07/01/20 19:29 66 16 100 90 07/01/20 19:06 70 07/01/20 16:00 97.6 83 24 113/62 (79) 97 07/01/20 16:00 Bi-pap Bi-pap 07/01/20 16:00 89 07/01/20 16:00 100 07/01/20 15:10 72 28 96 90 07/01/20 12:00 Bi-pap Bi-pap 07/01/20 12:00 61 07/01/20 12:00 97.8 79 25 106/63 (77) 100 07/01/20 12:00 100 07/01/20 11:00 79 20 100 90 Height (Feet): 5 Height (Inches): 4.00 Weight (Pounds): 146 HEENT: mucous membranes moist Respiratory/Chest: other - on BIPAP Cardiovascular: normal rate Abdomen: soft, non tender Extremities: no edema Neurologic/Psychiatric: alert, responsive Current Medications Medications (Trade) Dose Ordered Sig/Yoselin Route PRN Reason Start Time Stop Time Status Last Admin Dose Admin Acetaminophen (Tylenol) 650 mg Q6H PRN ORAL For Pain 06/18/20 22:00 07/18/20 21:59 Apixaban (Eliquis) 5 mg BID ORAL 06/30/20 18:00 09/28/20 17:59 07/01/20 18:28 Aspirin (ASA) 81 mg DAILY ORAL 06/20/20 09:00 08/04/20 08:59 07/01/20 09:00 Docusate Sodium (Colace) 100 mg TWICE A DAY NG 06/25/20 18:00 07/25/20 17:59 07/01/20 09:00 Ondansetron HCl (Zofran) 4 mg Q6H PRN IVP Nausea & Vomiting 06/18/20 22:00 07/18/20 21:59 Pantoprazole (Protonix) 40 mg DAILY IVP 06/20/20 09:00 07/20/20 08:59 07/01/20 09:00 Arturo Dudley MD Jul 02, 2020 09:43
[2020-07-02] MEDS: Pantoprazole Inj IVP SCH (09:49)
[2020-07-02] MEDS: Aspirin Baby 81mg ORAL SCH (09:49)
[2020-07-02] MEDS: Eliquis 5mg tablet ORAL SCH ×2 (09:49→17:01)
[2020-07-02] MEDS: Docusate 100mg/10ml Liq NG SCH ×2 (09:49→17:01)
--- NOTE | 2020-07-02 10:23 | NUR ---
NURSE NOTES: Dr Reyes visited pt and is aware spo2 dropped to 73 once morning, no new order received. will continue to monitor.
[2020-07-02 12:00] VITALS: BP_SYST 101; BP_SYST 95; BP_DIAS 54; BP_DIAS 57
--- NOTE | 2020-07-02 12:47 | NUR ---
NURSE NOTES: FATOUMATA Vences visited pt and is aware about BP and other lab results and V/S, no new order received. will continue to monitor.
--- NOTE | 2020-07-02 13:12 | NUR ---
RD ASSESSMENT & RECOMMENDATIONS SEE CARE ACTIVITY FOR COMPLETE ASSESSMENT DAILY ESTIMATED NEEDS: Needs based on pulmonary 61kg abw 25-30 kcals/kg 3375-1159 total kcals 1.25-1.5 g protein/kg 76-92 g total protein 25-30 mL/kg 5271-2082 total fluid mLs NUTRITION DIAGNOSIS: Predicted poor po intake r/t respiratory status/ bipap use as evidenced by pt is covid ++, on bipap, desats when off device, diet now advanced from clear liquid diet to full liquid. CURRENT DIET: Full liquid PO DIET RECOMMENDATIONS: rec CURING SUPERVISOR eval for diet->Regular diet ENTERAL NUTRITION RECOMMENDATIONS: Consult RD for non-oral TF recs if part of POC. ADDITIONAL RECOMMENDATIONS: 1) Pt unable to tolerate oral po, consider non oral feeds as medically able 2) On decadron w/ elev BG, rec niss w/ po intake -> now off decadron 3) Check HgA1C 4) CURING SUPERVISOR eval for appropriate texture 5) Add Ensure Enlive TID w/ full liquid diet. Poor intake, consider NGT feeds if medically appropriate w/ bipap
--- NOTE | 2020-07-02 13:21 | NUR ---
Corrosion Control TechnicianAssistant Media Planner SI: Respiratory Failure, Pulmonary Emboli, COVID-19 T 98.8, HR 88, RR 23, BP 101/57, O2 Sat 100% BIPAP 18/10 FiO2 100%, O2 Sat 97% WBC 8.8, IS: Lasix IV eliquis BID D5NS @ 50cc/hr Step Down Status
--- NOTE | 2020-07-02 14:10 | Pulmonology Progress Note ---
Subjective ROS Limited/Unobtainable: Yes Interval Events: seen in SDU Constitutional: Denies: fever HEENT: Repors: no symptoms Respiratory: Reports: no symptoms Cardiovascular: Reports: no symptoms Gastrointestinal/Abdominal: Reports: no symptoms Allergies: Coded Allergies: No Known Allergies (Unverified , 06/18/20) Objective Last 24 Hour Vital Signs Date Time Temp Pulse Resp B/P (MAP) Pulse Ox O2 Delivery O2 Flow Rate FiO2 07/02/20 12:00 98.8 88 23 101/57 (72) 97 07/02/20 12:00 Bi-pap Bi-pap 07/02/20 12:00 100 07/02/20 11:45 80 07/02/20 11:00 91 33 100 80 07/02/20 08:00 97.5 88 20 93/55 (68) 95 07/02/20 08:00 100 07/02/20 08:00 Bi-pap Bi-pap 07/02/20 07:46 88 07/02/20 07:10 91 33 100 90 07/02/20 04:00 98.2 79 22 93/56 (68) 97 07/02/20 04:00 100 07/02/20 04:00 Bi-pap Bi-pap 07/02/20 04:00 84 07/02/20 01:45 56 17 100 90 07/02/20 00:00 Bi-pap Bi-pap 07/02/20 00:00 100 07/02/20 00:00 98.2 78 24 94/58 (70) 97 07/02/20 00:00 66 07/01/20 20:00 100 07/01/20 20:00 Bi-pap Bi-pap 07/01/20 20:00 98.1 71 21 95/57 (70) 97 07/01/20 19:29 66 16 100 90 07/01/20 19:06 70 07/01/20 16:00 97.6 83 24 113/62 (79) 97 07/01/20 16:00 Bi-pap Bi-pap 07/01/20 16:00 89 07/01/20 16:00 100 07/01/20 15:10 72 28 96 90 Intake and Output 07/01/20 07/02/20 19:00 07:00 Intake Total 450 ml 890 ml Output Total 450 ml Balance 450 ml 440 ml Intake Oral 450 ml 890 ml Output Urine Total 450 ml # Voids 2 Objective seen in SDU, on BiPAP saturating at 98% with current setting General Appearance: no acute distress HEENT: normocephalic Respiratory: chest wall non-tender, lungs clear Cardiovascular: normal peripheral pulses Abdomen: normal bowel sounds Extremities: no cyanosis Current Medications Medications (Trade) Dose Ordered Sig/Yoselin Route PRN Reason Start Time Stop Time Status Last Admin Dose Admin Acetaminophen (Tylenol) 650 mg Q6H PRN ORAL For Pain 06/18/20 22:00 07/18/20 21:59 Apixaban (Eliquis) 5 mg BID ORAL 06/30/20 18:00 09/28/20 17:59 07/02/20 09:49 Aspirin (ASA) 81 mg DAILY ORAL 06/20/20 09:00 08/04/20 08:59 07/02/20 09:49 Docusate Sodium (Colace) 100 mg TWICE A DAY NG 06/25/20 18:00 07/25/20 17:59 07/02/20 09:49 Famotidine (Pepcid I.v.) 20 mg Q12HR IVP 07/02/20 21:00 08/01/20 20:59 Ondansetron HCl (Zofran) 4 mg Q6H PRN IVP Nausea & Vomiting 06/18/20 22:00 07/18/20 21:59 Assessment/Plan Assessment/Plan 1. COVID-19 pneumonia. - s/p decadron (06/22-06/28) - s/p broad-spectrum antibiotics - s/p remdesivir - CXR 06/26 better 2. Respiratory failure. - currently on BiPAP saturating at 98%; failed lowering FiO2 - will attempt weaning again 3. Pulmonary embolism. - s/p heparin - Started on Eliquis 5 mg PO BID 4. Troponin leak. - 2D echo showed LV EF 65% Attempted venti-mask.. unsuccessful On clear liquid diet; will advance to full liquid; now off Lasix and IV fluids The care of this patient was discussed with my supervising physician Time spent for this encounter was approximately 31 minutes Jhonny Vences Jul 02, 2020 14:10 Gurdeep Reyes MD Jul 02, 2020 14:24
[2020-07-02 16:00] VITALS: BP 100/61
--- NOTE | 2020-07-02 19:19 | NUR ---
NURSE HAND-OFF REPORT: Important Events on Shift: Patient Status: Diet: Pending Orders: Pending Results/Labs: Pending MD notification: Latest Vital Signs: Temperature 97.0 , Pulse 102 , B/P 100 /61 , Respiratory Rate 25 , O2 SAT 96 , Bi-pap, O2 Flow Rate 40.0 . Vital Sign Comment: EKG Rhythm: Sinus Rhythm Rhythm change?: N MD Notified?: - MD Response: Latest Mcdowell Fall Score: 30 Fall Risk: Medium Risk Safety Measures: Call light Within Reach, Bed Alarm Zone 2, Side Rails Side Rails x3, Bed position Low and Locked. Fall Precautions: Door Sign Report given to . Pt is awake and stable, no stress noted, HR 93 SPO2 94%, Endoersed plan of care, endorsed to monitor sapo2.
--- NOTE | 2020-07-02 19:39 | NUR ---
NURSE NOTES: Received report from TIMOTHY Jc, pt. in bed awake, appears to be A/O x's 3-4 Thai speaking-able to make needs known, no signs os symptoms of acute cardiac or respiratory distress noted, bed alarm on, side rails up x's3 and safety brakes engaged, call light within easy, pt. appears to be tolerating current BIPAP settings 18/10 fio2 at 90%- no distress noted- sating at 96%, pt. has urinal at bedside and within easy reach, pt. appears clean and dry, pt. has RAC 20G- SL, safety measures continued, will continue with plan of care. Addendum: 07/02/20 at 2128 by TIA DELACRUZ RN RN correction to message above Fio2 is at 100%.
[2020-07-02 20:00] VITALS: BP 102/63
--- NOTE | 2020-07-02 22:45 | NUR ---
NURSE NOTES: bed bath given, linens changed, oral care provided, repositioned and turned pt- pt. appears to be tolerating BIPAP settings- no distress noted- sating at 98%, HOB elevated- Aspiration and skin precautions observed, isolation precautions observed, will continue to monitor pt. and with plan of care.
[2020-07-03] VITALS: BP 102/66
--- NOTE | 2020-07-03 00:36 | Cardiology Progress Note ---
Subjective DATE OF SERVICE: Jul 02, 2020 Remains on bipap support, requiring high flow oxygen - still unable to taper. Monitor: sinus rhythm with rare ectopics 2D Echo - normal LVEF, no signs RV strain, normal PA pressure of 30mm Hg CXR (07/01) bilateral infiltrates without change Objective Last 24 Hour Vital Signs Date Time Temp Pulse Resp B/P (MAP) Pulse Ox O2 Delivery O2 Flow Rate FiO2 07/03/20 00:00 Bi-pap Bi-pap 07/03/20 00:00 98.7 99 26 102/66 (78) 97 07/03/20 00:00 100 07/02/20 22:41 92 31 95 85 07/02/20 20:00 100 07/02/20 20:00 Bi-pap Bi-pap 07/02/20 20:00 98.2 92 26 102/63 (76) 98 07/02/20 19:21 98 07/02/20 19:04 97 31 95 85 07/02/20 16:00 Bi-pap Bi-pap 07/02/20 16:00 100 07/02/20 16:00 97.0 102 25 100/61 (74) 96 07/02/20 15:37 100 07/02/20 15:31 95 31 96 85 07/02/20 12:00 98.8 88 23 101/57 (72) 97 07/02/20 12:00 Bi-pap Bi-pap 07/02/20 12:00 100 07/02/20 11:45 80 07/02/20 11:00 91 33 100 80 07/02/20 08:00 97.5 88 20 93/55 (68) 95 07/02/20 08:00 100 07/02/20 08:00 Bi-pap Bi-pap 07/02/20 07:46 88 07/02/20 07:10 91 33 100 90 07/02/20 04:00 98.2 79 22 93/56 (68) 97 07/02/20 04:00 100 07/02/20 04:00 Bi-pap Bi-pap 07/02/20 04:00 84 07/02/20 01:45 56 17 100 90 ROS: unchanged from 06/19/20 HEENT: other - bipap RHYTHM: NSR LUNGS: bilat. 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 Full anticoagulation Monitor for sustained atrial arrhythmias Replace lytes as needed Insulin cov'g by Aden Meléndez MD Jul 03, 2020 00:36
[2020-07-03 04:00] VITALS: BP 101/53
--- NOTE | 2020-07-03 07:04 | NUR ---
NURSE HAND-OFF REPORT: Important Events on Shift:none Patient Status: fair Diet: Full liquid Pending Orders: Pending Results/Labs: Pending MD notification: Latest Vital Signs: Temperature 98.5 , Pulse 96 , B/P 101 /53 , Respiratory Rate 26 , O2 SAT 96 , Bi-pap, O2 Flow Rate 40.0 . Vital Sign Comment: EKG Rhythm: Sinus Rhythm Rhythm change?: N MD Notified?: - MD Response: Latest Mcdowell Fall Score: 30 Fall Risk: Medium Risk Safety Measures: Call light Within Reach, Bed Alarm Zone 2, Side Rails Side Rails x3, Bed position Low and Locked. Fall Precautions: Door Sign Report given to Jared Mccarthy, aware to f/u on any abnormal am labs.
--- NOTE | 2020-07-03 07:04 | NUR ---
NURSE NOTES: Received report from TIMOTHY Padilla. Patient is on bed, sleeping. No signs of grimacing or distress noted. Patient is on BiPap 18/10, FiO2 90%, tolerating well. Patient is on full liquid diet. Patient has a urinal on bed side. Has a R AC 20 g, patent intact, saline locked. HOB elevated, bed is lowest position, locked, side rails up, call light within reach. Patient will continue to be monitored.
[2020-07-03 07:12] LABS: HEMATOCRIT 40.6 % (42.0-52.0); HEMOGLOBIN 13.2 G/DL (14.2-18.0); MEAN CORPUSCULAR VOLUME 95 FL (80-99); PLATELET COUNT 158 K/UL (150-450); RED BLOOD COUNT 4.29 M/UL (4.70-6.10); RED CELL DISTRIBUTION WIDTH 12.5 % (11.6-14.8); WHITE BLOOD COUNT 9.3 K/UL (4.8-10.8)
[2020-07-03 08:00] VITALS: BP 105/65
[2020-07-03 08:16] LABS: ALANINE AMINOTRANSFERASE 35 U/L (12-78); ALBUMIN/GLOBULIN RATIO 0.4 (1.0-2.7); ALKALINE PHOSPHATASE 105 U/L (46-116); ANION GAP 6 mmol/L (5-15); ASPARTATE AMINO TRANSFERASE 31 U/L (15-37); BLOOD UREA NITROGEN 16 mg/dL (7-18); CALCIUM 8.6 MG/DL (8.5-10.1); CARBON DIOXIDE 30 MMOL/L (21-32); CHLORIDE 98 MMOL/L (98-107); CREATININE 0.6 MG/DL (0.55-1.30); POTASSIUM 3.9 MMOL/L (3.5-5.1); SODIUM 134 MMOL/L (136-145)
[2020-07-03] MEDS: Eliquis 5mg tablet ORAL SCH ×2 (08:30→17:52)
[2020-07-03] MEDS: Aspirin Baby 81mg ORAL SCH (08:30)
[2020-07-03] MEDS: Docusate 100mg/10ml Liq NG SCH ×2 (08:30→17:52)
--- NOTE | 2020-07-03 10:03 | Cardiology Report ---
APPROVED REPORT EXAM: Two-dimensional and M-mode echocardiogram with Doppler and color Doppler. INDICATION Acute myocard infarction M-Mode DIMENSIONS IVSd0.9 (0.7-1.1cm)Left Atrium (MM)2.5 (1.6-4.0cm) LVDd4.0 (3.5-5.6cm)Aortic Root2.5 (2.0-3.7cm) PWd0.9 (0.7-1.1cm)Aortic Cusp Exc.2.0 (1.5-2.0cm) IVSs1.5 cmEPSS0.4 (>1.0cm) LVDs2.5 (2.5-4.0cm) PWs1.2 cm <Conclusion> Normal left ventricular chamber size, systolic function and wall motion. Left ventricular ejection fraction estimated to be 65 %. No evidence of left ventricular hypertrophy. Anterior Echo-free space, may be due to pericardial fat or effusion. All other cardiac chamber sizes are within normal limits. Focal aortic valve sclerosis with adequate cusp excursion. Thickened mitral valve leaflets with normal excursion. Mitral annulus and aortic root calcification. Pulmonic valve not well visualized. Normal tricuspid valve structure. IVC at normal size with physiologic collapse. A color flow and spectral Doppler study was performed and revealed: Mild aortic regurgitation. Trace mitral regurgitation. Mitral diastolic velocities suggest reduced left ventricular relaxation c/w mild diastolic dysfunction (Grade I). Trace tricuspid regurgitation. Tricuspid systolic velocities suggests peak right ventricular systolic pressure of 30 mmHg. Pulmonic regurgitation present.
[2020-07-03 12:00] VITALS: BP 109/73
--- NOTE | 2020-07-03 13:50 | NUR ---
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
--- NOTE | 2020-07-03 14:15 | Pulmonology Progress Note ---
Subjective ROS Limited/Unobtainable: Yes Interval Events: seen in SDU Constitutional: Denies: fever HEENT: Repors: no symptoms Respiratory: Reports: no symptoms Cardiovascular: Reports: no symptoms Gastrointestinal/Abdominal: Reports: no symptoms Allergies: Coded Allergies: No Known Allergies (Unverified , 06/18/20) Objective Last 24 Hour Vital Signs Date Time Temp Pulse Resp B/P (MAP) Pulse Ox O2 Delivery O2 Flow Rate FiO2 07/03/20 08:00 100 07/03/20 08:00 Bi-pap Bi-pap 07/03/20 08:00 99.0 90 20 105/65 (78) 92 90 07/03/20 07:49 80 07/03/20 06:50 86 24 93 85 07/03/20 04:00 Bi-pap Bi-pap 07/03/20 04:00 100 07/03/20 04:00 98.5 96 26 101/53 (69) 96 07/03/20 03:33 100 07/03/20 03:13 100 30 94 85 07/03/20 00:00 Bi-pap Bi-pap 07/03/20 00:00 98.7 99 26 102/66 (78) 97 07/03/20 00:00 100 07/02/20 23:51 95 07/02/20 22:41 92 31 95 85 07/02/20 20:00 100 07/02/20 20:00 Bi-pap Bi-pap 07/02/20 20:00 98.2 92 26 102/63 (76) 98 07/02/20 19:21 98 07/02/20 19:04 97 31 95 85 07/02/20 16:00 Bi-pap Bi-pap 07/02/20 16:00 100 07/02/20 16:00 97.0 102 25 100/61 (74) 96 07/02/20 15:37 100 07/02/20 15:31 95 31 96 85 Intake and Output 07/02/20 07/03/20 19:00 07:00 Intake Total 180 ml Output Total 350 ml 450 ml Balance -170 ml -450 ml Intake Oral 180 ml Output Urine Total 350 ml 450 ml # Voids 3 # Bowel Movements 1 1 General Appearance: no acute distress HEENT: normocephalic Respiratory: chest wall non-tender, lungs clear Cardiovascular: normal peripheral pulses Abdomen: normal bowel sounds Extremities: no cyanosis Laboratory Tests 07/03/20 04:35: White Blood Count 9.3, Red Blood Count 4.29L, Hemoglobin 13.2L, Hematocrit 40.6L , Mean Corpuscular Volume 95, Mean Corpuscular Hemoglobin 30.7, Mean Corpuscular Hemoglobin Concent 32.4, Red Cell Distribution Width 12.5, Platelet Count 158, Mean Platelet Volume 6.9, Neutrophils (%) (Auto) , Lymphocytes (%) (Auto) , Monocytes (%) (Auto) , Eosinophils (%) (Auto) , Basophils (%) (Auto) , Differential Total Cells Counted 100, Neutrophils % (Manual) 87H, Lymphocytes % (Manual) 8L, Monocytes % (Manual) 5, Eosinophils % (Manual) 0, Basophils % (Manual) 0, Band Neutrophils 0, Platelet Estimate Adequate, Platelet Morphology Normal, Red Blood Cell Morphology Normal, Sodium Level 134L, Potassium Level 3.9, Chloride Level 98, Carbon Dioxide Level 30, Anion Gap 6, Blood Urea Nitrogen 16, Creatinine 0.6, Estimat Glomerular Filtration Rate > 60, Glucose Level 137H, Calcium Level 8.6, Magnesium Level 1.9, Total Bilirubin 1.0, Aspartate Amino Transf (AST/SGOT) 31, Alanine Aminotransferase (ALT/SGPT) 35, Alkaline Phosphatase 105, Pro-B-Type Natriuretic Peptide 949H, Total Protein 6.6, Albumin 2.0L, Globulin 4.6, Albumin/Globulin Ratio 0.4L Current Medications Medications (Trade) Dose Ordered Sig/Yoselin Route PRN Reason Start Time Stop Time Status Last Admin Dose Admin Acetaminophen (Tylenol) 650 mg Q6H PRN ORAL For Pain 06/18/20 22:00 07/18/20 21:59 Apixaban (Eliquis) 5 mg BID ORAL 06/30/20 18:00 09/28/20 17:59 07/03/20 08:30 Aspirin (ASA) 81 mg DAILY ORAL 06/20/20 09:00 08/04/20 08:59 07/03/20 08:30 Docusate Sodium (Colace) 100 mg TWICE A DAY NG 06/25/20 18:00 07/25/20 17:59 07/03/20 08:30 Famotidine (Pepcid I.v.) 20 mg Q12HR IVP 07/02/20 21:00 08/01/20 20:59 07/03/20 08:30 Ondansetron HCl (Zofran) 4 mg Q6H PRN IVP Nausea & Vomiting 06/18/20 22:00 07/18/20 21:59 Assessment/Plan Assessment/Plan IMPRESSION: 1. COVID-19 pneumonia. - s/p decadron (06/22-06/28) - s/p broad-spectrum antibiotics - s/p remdesivir - CXR 06/26 better 2. Respiratory failure. - currently on BiPAP saturating at 98%; failed lowering FiO2 - will attempt weaning again; however he is still requiring 100% FiO2 3. Pulmonary embolism. - s/p heparin - Started on Eliquis 5 mg PO BID 4. Troponin leak. - 2D echo showed LV EF 65% Attempted venti-mask.. unsuccessful Tea Peterson Omar Syed MD Jul 03, 2020 14:15
[2020-07-03 16:00] VITALS: BP 111/65
--- NOTE | 2020-07-03 18:23 | Cardiology Progress Note ---
Subjective DATE OF SERVICE: Jul 03, 2020 Remains on bipap support, requiring high flow oxygen - still unable to taper. Monitor: sinus rhythm with rare ectopics 2D Echo - normal LVEF, no signs RV strain, normal PA pressure of 30mm Hg CXR (07/01) bilateral infiltrates without change Objective Last 24 Hour Vital Signs Date Time Temp Pulse Resp B/P (MAP) Pulse Ox O2 Delivery O2 Flow Rate FiO2 07/03/20 16:00 Bi-pap Bi-pap 07/03/20 16:00 100.2 81 17 111/65 (80) 94 07/03/20 16:00 100 07/03/20 15:22 86 07/03/20 15:00 89 25 93 85 07/03/20 12:00 94 07/03/20 12:00 Bi-pap Bi-pap 07/03/20 12:00 100 07/03/20 12:00 99.7 89 20 109/73 (85) 95 07/03/20 10:30 91 25 94 85 07/03/20 08:00 100 07/03/20 08:00 Bi-pap Bi-pap 07/03/20 08:00 99.0 90 20 105/65 (78) 92 90 07/03/20 07:49 80 07/03/20 06:50 86 24 93 85 07/03/20 04:00 Bi-pap Bi-pap 07/03/20 04:00 100 07/03/20 04:00 98.5 96 26 101/53 (69) 96 07/03/20 03:33 100 07/03/20 03:13 100 30 94 85 07/03/20 00:00 Bi-pap Bi-pap 07/03/20 00:00 98.7 99 26 102/66 (78) 97 07/03/20 00:00 100 07/02/20 23:51 95 07/02/20 22:41 92 31 95 85 07/02/20 20:00 100 07/02/20 20:00 Bi-pap Bi-pap 07/02/20 20:00 98.2 92 26 102/63 (76) 98 07/02/20 19:21 98 07/02/20 19:04 97 31 95 85 ROS: unchanged from 06/19/20 HEENT: other - bipap RHYTHM: NSR LUNGS: bilat. rhonchi and rales CARDIAC: normal rate, regular rhythm, normal S1 and S2 ABDOMEN: normal bowel sounds, soft, distended EXTREMITIES: normal range of motion, non-tender, trace edema Laboratory Tests Test 07/03/20 04:35 White Blood Count 9.3 K/UL (4.8-10.8) Red Blood Count 4.29 M/UL (4.70-6.10) L Hemoglobin 13.2 G/DL (14.2-18.0) L Hematocrit 40.6 % (42.0-52.0) L Mean Corpuscular Volume 95 FL (80-99) Mean Corpuscular Hemoglobin 30.7 PG (27.0-31.0) Mean Corpuscular Hemoglobin Concent 32.4 G/DL (32.0-36.0) Red Cell Distribution Width 12.5 % (11.6-14.8) Platelet Count 158 K/UL (150-450) Mean Platelet Volume 6.9 FL (6.5-10.1) Neutrophils (%) (Auto) % (45.0-75.0) Lymphocytes (%) (Auto) % (20.0-45.0) Monocytes (%) (Auto) % (1.0-10.0) Eosinophils (%) (Auto) % (0.0-3.0) Basophils (%) (Auto) % (0.0-2.0) Differential Total Cells Counted 100 Neutrophils % (Manual) 87 % (45-75) H Lymphocytes % (Manual) 8 % (20-45) L Monocytes % (Manual) 5 % (1-10) Eosinophils % (Manual) 0 % (0-3) Basophils % (Manual) 0 % (0-2) Band Neutrophils 0 % (0-8) Platelet Estimate Adequate Platelet Morphology Normal Red Blood Cell Morphology Normal Sodium Level 134 MMOL/L (136-145) L Potassium Level 3.9 MMOL/L (3.5-5.1) Chloride Level 98 MMOL/L (98-107) Carbon Dioxide Level 30 MMOL/L (21-32) Anion Gap 6 mmol/L (5-15) Blood Urea Nitrogen 16 mg/dL (7-18) Creatinine 0.6 MG/DL (0.55-1.30) Estimat Glomerular Filtration Rate > 60 mL/min (>60) Glucose Level 137 MG/DL (74-106) H Calcium Level 8.6 MG/DL (8.5-10.1) Magnesium Level 1.9 MG/DL (1.8-2.4) Total Bilirubin 1.0 MG/DL (0.2-1.0) Aspartate Amino Transf (AST/SGOT) 31 U/L (15-37) Alanine Aminotransferase (ALT/SGPT) 35 U/L (12-78) Alkaline Phosphatase 105 U/L (46-116) Pro-B-Type Natriuretic Peptide 949 pg/mL (0-125) H Total Protein 6.6 G/DL (6.4-8.2) Albumin 2.0 G/DL (3.4-5.0) L Globulin 4.6 g/dL Albumin/Globulin Ratio 0.4 (1.0-2.7) L Assessment/Plan Assessment/Plan COVID 19 PNA Hypoxia Ac pulmonary embolism Acute coronary syndrome/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 Full anticoagulation Monitor for sustained atrial arrhythmias Replace lytes as needed Insulin cov'g by SS Will try to diurese to improve oxygenation. Aden Mejias MD Jul 03, 2020 18:23
--- NOTE | 2020-07-03 19:22 | NUR ---
NURSE NOTES: Received report from TIMOTHY Mccarthy, pt. in bed awake, appears to be A/O x's 3-4 Gabonese speaking-able to make needs known, no signs or symptoms of acute cardiac or respiratory distress noted, bed alarm on, side rails up x's3 and safety brakes engaged, call light within easy, pt. appears to be tolerating current BIPAP settings 18/10 fio2 at 100%- no distress noted- sating at 97%, pt. has urinal at bedside and within easy reach, pt. appears clean and dry, pt. has RAC 20G- SL, oral care provided, safety measures continued, will continue with plan of care.
[2020-07-03 20:00] VITALS: BP 101/57
--- NOTE | 2020-07-03 20:00 | NUR ---
NURSE NOTES: Fio2 decreased to 90% by RT Luke- will continue to monitor pt. and with plan of care- sating 97%
[2020-07-04] VITALS: BP 109/58
--- NOTE | 2020-07-04 | NUR ---
NURSE NOTES: bed bath given, linens changed, oral care provided, repositioned and turned pt- pt. appears to be tolerating BIPAP settings- no distress noted- sating at 99%, HOB elevated- Aspiration and skin precautions observed, isolation precautions observed, will continue to monitor pt. and with plan of care
[2020-07-04 04:00] VITALS: BP 107/61
--- NOTE | 2020-07-04 06:40 | NUR ---
RESPIRATORY NOTE: PT received on BiPAP 12/04 RR:14 90%. Due to increased WOB and desaturation (87%) Fio2 was increased to 100%. PT current SpO2 is 97%. Alarms are on and audible. PT is currently using full face mask. Facial Tape was replaced and no new wounds were found. Optifoam was noted on bridge of nose due to skin breakdown. Kacey AGUIRRE. confirmed nursing is aware. Will continue to closely monitor.
--- NOTE | 2020-07-04 06:42 | NUR ---
NURSE NOTES: pt. desating on current Fio2 settings at 90%- RT increased Fio2 to 100%- will continue to monitor pt.- now sating at 97%.
--- NOTE | 2020-07-04 07:23 | NUR ---
NURSE HAND-OFF REPORT: Important Events on Shift:increased Fio2 from 90-100%- pt remains stable now. Patient Status: stable Diet: full liquid diet Pending Orders: Pending Results/Labs: Pending MD notification: Latest Vital Signs: Temperature 97.9 , Pulse 98 , B/P 107 /61 , Respiratory Rate 26 , O2 SAT 98 , Bi-pap, O2 Flow Rate 40.0 . Vital Sign Comment: EKG Rhythm: Sinus Tachycardia Rhythm change?: N MD Notified?: N - MD Response: Latest Mcdowell Fall Score: 30 Fall Risk: Medium Risk Safety Measures: Call light Within Reach, Bed Alarm Zone 2, Side Rails Side Rails x3, Bed position Low and Locked. Fall Precautions: Door Sign Report given to Jared morales, aware to f/u on any abnormal am labs.
--- NOTE | 2020-07-04 07:23 | NUR ---
NURSE NOTES: Received patient report from TIMOTHY Padilla. Patient is AO x3. Patient on Bipap 18/10 FiO2 100%, breathing is even and unlabored with no signs of respiratory distress. No pain or discomfort noted at this time. Bed in lowest position locked with side rails x2 up. pt. has RAC 20G- SL, site is patent and intact. Call light within reach at all times.
[2020-07-04 08:00] VITALS: BP 92/60
[2020-07-04] MEDS: Aspirin Baby 81mg ORAL SCH (08:47)
[2020-07-04] MEDS: Docusate 100mg/10ml Liq NG SCH ×2 (08:48→17:18)
[2020-07-04] MEDS: Eliquis 5mg tablet ORAL SCH ×2 (09:18→17:18)
--- NOTE | 2020-07-04 11:17 | Infectious Diseases Prog Note ---
Assessment/Plan Assessment/Plan IMPRESSION: 1. Sepsis with tachycardia, tachypnea and leukocytosis. 2. COVID-19 pneumonia. 3. Pulmonary emboli. 4. Hypoxic respiratory failure, 5. Elevated troponin. RECOMMENDATION: Finished dexamethasone & Remdesivir course Continue respiratory support Subjective ROS Limited/Unobtainable: Yes Constitutional: Reports: no symptoms Respiratory: Reports: shortness of breath; Denies: dry cough Allergies: Coded Allergies: No Known Allergies (Unverified , 06/18/20) Objective Last 24 Hour Vital Signs Date Time Temp Pulse Resp B/P (MAP) Pulse Ox O2 Delivery O2 Flow Rate FiO2 07/04/20 08:00 97.9 61 20 92/60 (71) 92 07/04/20 08:00 107 07/04/20 08:00 Bi-pap Bi-pap 07/04/20 06:42 100 07/04/20 06:40 103 41 97 100 07/04/20 04:00 Bi-pap Bi-pap 07/04/20 04:00 97.9 98 26 107/61 (76) 98 07/04/20 04:00 90 07/04/20 03:34 109 07/04/20 03:30 108 36 98 90 07/04/20 00:00 98.0 92 22 109/58 (75) 99 07/04/20 00:00 Bi-pap Bi-pap 07/03/20 23:41 104 07/03/20 22:51 111 36 99 90 07/03/20 21:29 98.8 07/03/20 20:00 Bi-pap Bi-pap 07/03/20 20:00 90 07/03/20 20:00 99.8 114 28 101/57 (72) 96 07/03/20 19:30 111 35 97 85 07/03/20 19:24 113 07/03/20 16:00 Bi-pap Bi-pap 07/03/20 16:00 100.2 81 17 111/65 (80) 94 07/03/20 16:00 100 07/03/20 15:22 86 07/03/20 15:00 89 25 93 85 07/03/20 12:00 94 07/03/20 12:00 Bi-pap Bi-pap 07/03/20 12:00 100 07/03/20 12:00 99.7 89 20 109/73 (85) 95 Height (Feet): 5 Height (Inches): 4.00 Weight (Pounds): 146 HEENT: mucous membranes moist Respiratory/Chest: other - on BIPAP, TDM8=708% Cardiovascular: tachycardia Abdomen: soft, non tender Extremities: no edema Neurologic/Psychiatric: alert, responsive Current Medications Medications (Trade) Dose Ordered Sig/Yoselin Route PRN Reason Start Time Stop Time Status Last Admin Dose Admin Acetaminophen (Tylenol) 650 mg Q6H PRN ORAL Temp >100.5 07/03/20 16:30 08/02/20 16:29 Acetaminophen (Tylenol) 650 mg Q6H PRN ORAL For Pain 06/18/20 22:00 07/18/20 21:59 07/03/20 20:59 Apixaban (Eliquis) 5 mg BID ORAL 06/30/20 18:00 09/28/20 17:59 07/04/20 09:18 Aspirin (ASA) 81 mg DAILY ORAL 06/20/20 09:00 08/04/20 08:59 07/04/20 08:47 Docusate Sodium (Colace) 100 mg TWICE A DAY NG 06/25/20 18:00 07/25/20 17:59 07/04/20 08:48 Famotidine (Pepcid I.v.) 20 mg Q12HR IVP 07/02/20 21:00 08/01/20 20:59 07/04/20 08:48 Furosemide (Lasix) 40 mg EVERY 12 HOURS IV 07/03/20 14:30 08/02/20 14:29 07/04/20 08:48 Ondansetron HCl (Zofran) 4 mg Q6H PRN IVP Nausea & Vomiting 06/18/20 22:00 07/18/20 21:59 Arturo Dudley MD Jul 04, 2020 11:17
[2020-07-04 12:00] VITALS: BP 97/61
--- NOTE | 2020-07-04 12:41 | Pulmonology Progress Note ---
Subjective ROS Limited/Unobtainable: Yes Interval Events: seen in SDU Constitutional: Reports: no symptoms HEENT: Repors: no symptoms Respiratory: Reports: no symptoms Cardiovascular: Reports: no symptoms Gastrointestinal/Abdominal: Reports: no symptoms Allergies: Coded Allergies: No Known Allergies (Unverified , 06/18/20) Objective Last 24 Hour Vital Signs Date Time Temp Pulse Resp B/P (MAP) Pulse Ox O2 Delivery O2 Flow Rate FiO2 07/04/20 10:48 105 33 97 100 07/04/20 08:00 97.9 61 20 92/60 (71) 92 07/04/20 08:00 107 07/04/20 08:00 Bi-pap Bi-pap 07/04/20 06:42 100 07/04/20 06:40 103 41 97 100 07/04/20 04:00 Bi-pap Bi-pap 07/04/20 04:00 97.9 98 26 107/61 (76) 98 07/04/20 04:00 90 07/04/20 03:34 109 07/04/20 03:30 108 36 98 90 07/04/20 00:00 98.0 92 22 109/58 (75) 99 07/04/20 00:00 Bi-pap Bi-pap 07/03/20 23:41 104 07/03/20 22:51 111 36 99 90 07/03/20 21:29 98.8 07/03/20 20:00 Bi-pap Bi-pap 07/03/20 20:00 90 07/03/20 20:00 99.8 114 28 101/57 (72) 96 07/03/20 19:30 111 35 97 85 07/03/20 19:24 113 07/03/20 16:00 Bi-pap Bi-pap 07/03/20 16:00 100.2 81 17 111/65 (80) 94 07/03/20 16:00 100 07/03/20 15:22 86 07/03/20 15:00 89 25 93 85 Intake and Output 07/03/20 07/04/20 19:00 07:00 Intake Total 240 ml Output Total 1200 ml 550 ml Balance -960 ml -550 ml Intake Oral 240 ml Output Urine Total 1200 ml 550 ml # Bowel Movements 1 General Appearance: no acute distress HEENT: normocephalic Respiratory: chest wall non-tender, lungs clear Cardiovascular: normal peripheral pulses Abdomen: normal bowel sounds Extremities: no cyanosis Current Medications Medications (Trade) Dose Ordered Sig/Yoselin Route PRN Reason Start Time Stop Time Status Last Admin Dose Admin Acetaminophen (Tylenol) 650 mg Q6H PRN ORAL Temp >100.5 07/03/20 16:30 08/02/20 16:29 Acetaminophen (Tylenol) 650 mg Q6H PRN ORAL For Pain 06/18/20 22:00 07/18/20 21:59 07/03/20 20:59 Apixaban (Eliquis) 5 mg BID ORAL 06/30/20 18:00 09/28/20 17:59 07/04/20 09:18 Aspirin (ASA) 81 mg DAILY ORAL 06/20/20 09:00 08/04/20 08:59 07/04/20 08:47 Docusate Sodium (Colace) 100 mg TWICE A DAY NG 06/25/20 18:00 07/25/20 17:59 07/04/20 08:48 Famotidine (Pepcid I.v.) 20 mg Q12HR IVP 07/02/20 21:00 08/01/20 20:59 07/04/20 08:48 Furosemide (Lasix) 40 mg EVERY 12 HOURS IV 07/03/20 14:30 08/02/20 14:29 07/04/20 08:48 Ondansetron HCl (Zofran) 4 mg Q6H PRN IVP Nausea & Vomiting 06/18/20 22:00 07/18/20 21:59 Assessment/Plan Assessment/Plan IMPRESSION: 1. COVID-19 pneumonia. - s/p decadron (06/22-06/28) - s/p broad-spectrum antibiotics - s/p remdesivir - CXR 06/26 better 2. Respiratory failure. - currently on BiPAP saturating at 98%; failed lowering FiO2 - will attempt weaning again; however he is still requiring 100% FiO2 - will attempt course of steroids (solumedrol) 3. Pulmonary embolism. - s/p heparin - Started on Eliquis 5 mg PO BID 4. Troponin leak. - 2D echo showed LV EF 65% Attempted venti-mask.. unsuccessful Tea Peterson Omar Syed MD Jul 04, 2020 12:41
[2020-07-04] MEDS: Solu-MEDROL 40mg Inj IVP SCH ×2 (12:45→21:05)
[2020-07-04 16:00] VITALS: BP 94/58
--- NOTE | 2020-07-04 19:04 | Cardiology Progress Note ---
Subjective DATE OF SERVICE: Jul 04, 2020 Remains on bipap support, requiring high flow oxygen - still unable to taper. Remains on full anti-coagulation. Diureses yesterday with furosemide Monitor: sinus rhythm with rare ectopics 2D Echo - normal LVEF, no signs RV strain, normal PA pressure of 30mm Hg CXR (07/01) bilateral infiltrates without change Objective Last 24 Hour Vital Signs Date Time Temp Pulse Resp B/P (MAP) Pulse Ox O2 Delivery O2 Flow Rate FiO2 07/04/20 16:00 Bi-pap Bi-pap 07/04/20 16:00 96.8 119 20 94/58 (70) 92 07/04/20 16:00 100 07/04/20 16:00 114 07/04/20 14:54 118 35 96 100 07/04/20 12:00 Bi-pap Bi-pap 07/04/20 12:00 100 07/04/20 12:00 97.8 76 18 97/61 (73) 92 07/04/20 12:00 108 07/04/20 10:48 105 33 97 100 07/04/20 08:00 97.9 61 20 92/60 (71) 92 07/04/20 08:00 107 07/04/20 08:00 Bi-pap Bi-pap 07/04/20 06:42 100 07/04/20 06:40 103 41 97 100 07/04/20 04:00 Bi-pap Bi-pap 07/04/20 04:00 97.9 98 26 107/61 (76) 98 07/04/20 04:00 90 07/04/20 03:34 109 07/04/20 03:30 108 36 98 90 07/04/20 00:00 98.0 92 22 109/58 (75) 99 07/04/20 00:00 Bi-pap Bi-pap 07/03/20 23:41 104 07/03/20 22:51 111 36 99 90 07/03/20 21:29 98.8 07/03/20 20:00 Bi-pap Bi-pap 07/03/20 20:00 90 07/03/20 20:00 99.8 114 28 101/57 (72) 96 07/03/20 19:30 111 35 97 85 07/03/20 19:24 113 ROS: unchanged from 06/19/20 HEENT: other - bipap RHYTHM: NSR LUNGS: bilat. 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 Full anticoagulation Monitor for sustained atrial arrhythmias Replace lytes as needed Insulin cov'g by SS Will continue periodic diuresis to maintain negative fluid balance and possibly improve oxygenation. Aden Mejias MD Jul 04, 2020 19:04
--- NOTE | 2020-07-04 19:15 | NUR ---
NURSE NOTES: Pt received from TIMOTHY Bob alert and oriented to self and place only. On Bipap 18/10 100% FiO2 noted to be desaturating to 80s and attempting to pull Bipap mask. Pt re-oriented back to situation and purpose and educated to keep mask on to improve oxygenation. RT alerted and pt noted to be tachypneic with RR 45, 85-86% O2 saturation. secured entrance monitor on - Sinus Tachy (140s). Bed in lowest position, bed alarm on. Call light and belongings within reach.
--- NOTE | 2020-07-04 19:35 | NUR ---
NURSE HAND-OFF REPORT: Important Events on Shift:NA Patient Status: Stable Diet: Full liquid diet Pending Orders: NA Pending Results/Labs:NA Pending MD notification:NA Latest Vital Signs: Temperature 96.8 , Pulse 156 , B/P 94 /58 , Respiratory Rate 43 , O2 SAT 92 , Bi-pap, O2 Flow Rate 40.0 . Vital Sign Comment: Stable EKG Rhythm: Sinus Tachycardia Rhythm change?: N MD Notified?: N - MD Response: Latest Mcdowell Fall Score: 30 Fall Risk: Medium Risk Safety Measures: Call light Within Reach, Bed Alarm Zone 2, Side Rails Side Rails x3, Bed position Low and Locked. Fall Precautions: Door Sign Report given to TIMOTHY Lea.
--- NOTE | 2020-07-04 19:57 | NUR ---
NURSE NOTES: Pt found with Bipap mask off desaturating to 71%, RN and RT at bedside oriented patient back to self, purpose, place, and time and educated to keep Bipap mask on to improve respiratory status, pt nodded head. Bipap mask reapplied - RR 40, 88% SpO2 with mask on. Distraction therapy provided for pt. Will continue to monitor.
[2020-07-04 20:00] VITALS: BP 105/74
--- NOTE | 2020-07-04 20:12 | NUR ---
NURSE NOTES: Pt noted to be tachypneic - 46 RR, 83% O2 sat, with noted labored breathing. ABGs ordered, will continue to monitor pt.
--- NOTE | 2020-07-04 20:22 | NUR ---
NURSE NOTES: RN left message with Dr. Reyes regarding's patients tachypnea of RR 44, labored breathing, and O2 saturation of 80s with Bipap settings of 18/10 100% FiO2. Awaiting call back from Dr. Reyes.
--- NOTE | 2020-07-04 20:44 | NUR ---
NURSE NOTES: Received call from Dr. Reyes. Per Dr. Reyes, adjust Bipap settings to 22/6 100% FiO2. RN endorsed that pt has been Sinus Tachycardic (140s-150s), denies chest pain. No further orders given. New Bipap settings communicated to RT Clemente, will follow through with orders given.
--- NOTE | 2020-07-04 22:50 | NUR ---
NURSE NOTES: Pt found with Bipap mask off, re-oriented to time, place, and purpose and educated to keep Bipap mask on to improve oxygenation status, pt nodded head but continued to reach for mask with RN at bedside. Placed on bilateral soft wrist restraints on bilateral upper extremities for pt safety, pulses equal bilaterally, no swelling or redness noted. Bed alarm on, bed in lowest position. Call light and belongings within reach.
--- NOTE | 2020-07-04 22:53 | NUR ---
NURSE NOTES: RN called Dr. Reyes and informed him of pt's repeated attempts to remove Bipap mask. Per Dr. Reyes, "ok to place on bilateral soft wrist restraints on upper extremities for pt safety." Will follow through with orders and continue to monitor pt. Restraint protocol initiated.
[2020-07-05] VITALS: BP 101/67
--- NOTE | 2020-07-05 02:53 | NUR ---
NURSE NOTES: Pt maintained on Bipap 15/12 100% FiO2 with RR of 40, 95% O2 saturation. Bilateral soft wrist restraints maintained, pulses equal bilaterally, no swelling or redness noted. Pt oriented to self, time, place, and purpose, pt verbalized understanding and nodded. Pt continues to reach for Bipap even with restraints on. Will continue to monitor pt.
[2020-07-05 04:00] VITALS: BP 101/70
--- NOTE | 2020-07-05 07:11 | Pulmonology Progress Note ---
Subjective ROS Limited/Unobtainable: Yes Interval Events: seen in SDU Constitutional: Reports: no symptoms HEENT: Repors: no symptoms Respiratory: Reports: no symptoms Cardiovascular: Reports: no symptoms Gastrointestinal/Abdominal: Reports: no symptoms Allergies: Coded Allergies: No Known Allergies (Unverified , 06/18/20) Objective Last 24 Hour Vital Signs Date Time Temp Pulse Resp B/P (MAP) Pulse Ox O2 Delivery O2 Flow Rate FiO2 07/05/20 04:00 110 07/05/20 04:00 Bi-pap Bi-pap 07/05/20 04:00 100 07/05/20 04:00 98.7 96 26 101/70 (80) 94 07/05/20 03:30 105 31 92 100 07/05/20 00:00 100 07/05/20 00:00 116 07/05/20 00:00 99.5 113 43 101/67 (78) 90 07/05/20 00:00 Bi-pap Bi-pap 07/04/20 23:05 130 36 92 100 07/04/20 21:37 99.8 07/04/20 21:30 100 07/04/20 20:00 Bi-pap Bi-pap 07/04/20 20:00 100.6 134 45 105/74 (84) 87 07/04/20 20:00 149 07/04/20 20:00 100 07/04/20 19:21 156 43 92 100 07/04/20 16:00 Bi-pap Bi-pap 07/04/20 16:00 96.8 119 20 94/58 (70) 92 07/04/20 16:00 100 07/04/20 16:00 114 07/04/20 14:54 118 35 96 100 07/04/20 12:00 Bi-pap Bi-pap 07/04/20 12:00 100 07/04/20 12:00 97.8 76 18 97/61 (73) 92 07/04/20 12:00 108 07/04/20 10:48 105 33 97 100 07/04/20 08:00 97.9 61 20 92/60 (71) 92 07/04/20 08:00 107 07/04/20 08:00 Bi-pap Bi-pap Intake and Output 07/04/20 07/05/20 19:00 07:00 Intake Total 360 ml 80 ml Output Total 1300 ml 500 ml Balance -940 ml -420 ml Intake Oral 360 ml 80 ml Output Urine Total 1300 ml 500 ml # Bowel Movements 1 13 General Appearance: no acute distress HEENT: normocephalic Respiratory: chest wall non-tender, lungs clear Cardiovascular: normal peripheral pulses Abdomen: normal bowel sounds Extremities: no cyanosis Laboratory Tests 07/04/20 19:47: Arterial Blood pH 7.460H, Arterial Blood Partial Pressure CO2 29.6L, Arterial Blood Partial Pressure O2 48.9*L, Arterial Blood HCO3 20.6L, Arterial Blood Oxygen Saturation 84.3*L, Arterial Blood Base Excess -1.9, Roshan Test Positive Current Medications Medications (Trade) Dose Ordered Sig/Yoselin Route PRN Reason Start Time Stop Time Status Last Admin Dose Admin Acetaminophen (Tylenol) 650 mg Q6H PRN ORAL Temp >100.5 07/03/20 16:30 08/02/20 16:29 Acetaminophen (Tylenol) 650 mg Q6H PRN ORAL For Pain 06/18/20 22:00 07/18/20 21:59 07/03/20 20:59 Acetaminophen (Tylenol) 650 mg Q6H PRN RECTAL Temp >100.5 07/04/20 20:45 08/03/20 20:44 07/04/20 21:07 Apixaban (Eliquis) 5 mg BID ORAL 06/30/20 18:00 09/28/20 17:59 07/04/20 17:18 Aspirin (ASA) 81 mg DAILY ORAL 06/20/20 09:00 08/04/20 08:59 07/04/20 08:47 Docusate Sodium (Colace) 100 mg TWICE A DAY NG 06/25/20 18:00 07/25/20 17:59 07/04/20 17:18 Famotidine (Pepcid I.v.) 20 mg Q12HR IVP 07/02/20 21:00 08/01/20 20:59 07/04/20 21:05 Furosemide (Lasix) 40 mg EVERY 12 HOURS IV 07/03/20 14:30 08/02/20 14:29 07/04/20 21:05 Methylprednisolone Sodium Succinate (Solu-MEDROL) 40 mg EVERY 12 HOURS IVP 07/04/20 12:45 4/9/21 12:44 07/04/20 21:05 Ondansetron HCl (Zofran) 4 mg Q6H PRN IVP Nausea & Vomiting 06/18/20 22:00 07/18/20 21:59 Assessment/Plan Assessment/Plan IMPRESSION: 1. COVID-19 pneumonia. - s/p decadron (06/22-06/28) - s/p broad-spectrum antibiotics - s/p remdesivir - CXR 06/26 better 2. Respiratory failure. - currently on BiPAP saturating at 98%; failed lowering FiO2 - will attempt weaning again; however he is still requiring 100% FiO2 - will attempt course of steroids (solumedrol) 3. Pulmonary embolism. - s/p heparin - Started on Eliquis 5 mg PO BID 4. Troponin leak. - 2D echo showed LV EF 65% Attempted venti-mask.. unsuccessful Tea Peterson Omar Syed MD Jul 05, 2020 07:11
--- NOTE | 2020-07-05 07:50 | NUR ---
NURSE NOTES: Received patient from Venu RN. patient is awake in bed without any distress noted. AO x2 irish speaking only. sinus tachycardia on the monitor. on continuous bipap 22/6 100% saturating 90-94%. urinal at bedside. blue [employer] phone and computer assistant at bedside. bed to lowest position and locked. call light within easy reach. will continue plan of care.
[2020-07-05 08:00] VITALS: BP 104/72
--- NOTE | 2020-07-05 08:20 | NUR ---
NURSE HAND-OFF REPORT: Important Events on Shift: Pt initially received on Bipap 18/10 100%, desats to 80s, frequently attempts to remove mask. ABGs done, critical ABG results communicated to Dr. Reyes. Per Dr. Reyes, only adjust settings to Bipap 22/6 100%. Pt maintained on new Bipap settings saturating at 90-95% but periodically desats to 88%. Placed on bilateral soft wrist restraints for pt safety. Patient Status: Ongoing Diet: Full Liquid Pending Orders: n/a Pending Results/Labs: n/a Pending MD notification: n/a Latest Vital Signs: Temperature 98.7 , Pulse 96 , B/P 101 /70 , Respiratory Rate 26 , O2 SAT 94 , Bi-pap, O2 Flow Rate 40.0 . Vital Sign Comment: WNL EKG Rhythm: Sinus Tachycardia Rhythm change?: N MD Notified?: N - MD Response: Latest Mcdowell Fall Score: 30 Fall Risk: Medium Risk Safety Measures: Call light Within Reach, Bed Alarm Zone 2, Side Rails Side Rails x3, Bed position Low and Locked. Fall Precautions: Door Sign Report given to TIMOTHY Francis.
[2020-07-05] MEDS: Docusate 100mg/10ml Liq NG SCH ×2 (09:00→18:00)
--- NOTE | 2020-07-05 10:00 | NUR ---
NURSE NOTES: noted patient O2 saturation in the 80s. patient attempts to take off bipap. provided education on importance on keeping bipap on. repositioned patient. will monitor closely
--- NOTE | 2020-07-05 10:15 | NUR ---
NURSE NOTES: noted patient DVT prophylaxis are PO and is on continuous bipap. Dr. Reyes came at bedside and gave order to discontinue PO DVT prophylacis medication. ordered lovenox and D5 NS. will carry out orders. Also showed Dr. Reyes Jul.04 ABG: PH 7.460, pCO2 29.6, PO2, 48.9, HCO3 20.6. Dr. Reyes aware and acknowledged and kept current bipap settings, no new orders regarding ABG. will monitor patient closely.
[2020-07-05] MEDS: Solu-MEDROL 40mg Inj IVP SCH ×2 (10:49→21:06)
[2020-07-05] MEDS: D5NS 1,000 ML IV SCH (10:51)
[2020-07-05] MEDS: Enoxaparin 60mg Inj SUBQ SCH ×2 (10:52→21:11)
--- NOTE | 2020-07-05 11:20 | NUR ---
NURSE NOTES: noted patient O2 saturation in 70s. RT came at bedside and tried to fix bipap. tried to keep patient calm as the more he talks he desaturates. Now saturating 80s. per RT recommendation to increase ePAP from 6 to 10. will relay to Dr. Reyes. will monitor closely.
[2020-07-05 12:00] VITALS: BP 104/72
--- NOTE | 2020-07-05 12:53 | NUR ---
NURSE NOTES: contacted Dr. Reyes regarding RT recommendation to change ePAP from 6 to 10. waiting for call back
[2020-07-05 16:00] VITALS: BP 118/82
--- NOTE | 2020-07-05 19:20 | NUR ---
NURSE NOTES: Pt received from Tito RN alert and orientedx3-4 Estonian speaking only. On Bipap / 100% FiO2 noted to be sating at 93%. Pt on bilateral soft wrist restraints for pulling devices but pt still strong and able to remove restraints and take off bipap which makes him desaturate. Pt re-oriented back to situation and purpose and educated to keep mask on to improve oxygenation. Pt has L FA 22g w/D5NS@50 patent and intact. hospital monitor running Sinus Tachy (110s). Bed in lowest position, bed alarm on. Call light and belongings within reach. Continue to monitor.
[2020-07-05 20:00] VITALS: BP 127/71
[2020-07-06] VITALS: BP 107/72
--- NOTE | 2020-07-06 00:39 | Cardiology Progress Note ---
Subjective DATE OF SERVICE: Jul 05, 2020 Remains on bipap support, requiring high flow oxygen - still unable to taper. Remains on full anti-coagulation. Diureses yesterday with furosemide Monitor: sinus rhythm with rare ectopics 2D Echo - normal LVEF, no signs RV strain, normal PA pressure of 30mm Hg CXR (07/01) bilateral infiltrates without change ABG (07/05) 7.48/35/49 Objective Last 24 Hour Vital Signs Date Time Temp Pulse Resp B/P (MAP) Pulse Ox O2 Delivery O2 Flow Rate FiO2 07/06/20 00:00 97.9 107 19 107/72 (84) 93 07/06/20 00:00 113 07/06/20 00:00 100 07/06/20 00:00 Bi-pap Bi-pap 07/05/20 23:08 111 25 91 100 07/05/20 20:00 112 07/05/20 20:00 97.6 112 18 127/71 (89) 93 07/05/20 20:00 Bi-pap Bi-pap 07/05/20 20:00 100 07/05/20 19:27 109 22 94 100 07/05/20 16:00 Bi-pap Bi-pap 07/05/20 16:00 100 07/05/20 16:00 97.5 123 30 118/82 (94) 88 07/05/20 16:00 125 07/05/20 14:55 116 28 91 100 07/05/20 12:15 116 29 88 100 07/05/20 12:00 96.1 121 32 104/72 (83) 82 07/05/20 12:00 124 07/05/20 12:00 Bi-pap Bi-pap 07/05/20 12:00 100 07/05/20 08:00 96.1 103 21 104/72 (83) 92 07/05/20 08:00 101 07/05/20 08:00 100 07/05/20 08:00 Bi-pap Bi-pap 07/05/20 07:34 102 33 92 100 07/05/20 04:00 110 07/05/20 04:00 Bi-pap Bi-pap 07/05/20 04:00 100 07/05/20 04:00 98.7 96 26 101/70 (80) 94 07/05/20 03:30 105 31 92 100 ROS: unchanged from 06/19/20 HEENT: other - bipap RHYTHM: ST LUNGS: bilat. rhonchi and rales CARDIAC: normal rate, regular rhythm, normal S1 and S2 ABDOMEN: normal bowel sounds, soft, distended EXTREMITIES: normal range of motion, non-tender, trace edema Laboratory Tests Test 07/05/20 11:53 Arterial Blood pH 7.485 (7.350-7.450) Arterial Blood Partial Pressure CO2 35.3 mmHg (35.0-45.0) Arterial Blood Partial Pressure O2 48.8 mmHg (75.0-100.0) Arterial Blood HCO3 26.0 mmol/L (22.0-26.0) Arterial Blood Oxygen Saturation 86.4 % (95-100) *L Arterial Blood Base Excess 2.9 (-2-2) H Roshan Test Positive Assessment/Plan Assessment/Plan COVID 19 PNA Hypoxia Ac pulmonary embolism Acute coronary syndrome/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 Full anticoagulation Monitor for sustained atrial arrhythmias Replace lytes as needed Insulin cov'g by SS Will continue periodic diuresis to maintain negative fluid balance and possibly improve oxygenation. Aden Mejias MD Jul 06, 2020 00:39
[2020-07-06 04:00] VITALS: BP 124/96
[2020-07-06] MEDS: D5NS 1,000 ML IV SCH (06:15)
--- NOTE | 2020-07-06 07:15 | NUR ---
NURSE HAND-OFF REPORT: Important Events on Shift:[] Patient Status: [STABLE] Diet: [] Pending Orders: [] Pending Results/Labs:[] Pending MD notification:[] Latest Vital Signs: Temperature 98.2 , Pulse 100 , B/P 124 /96 , Respiratory Rate 18 , O2 SAT 97 , Bi-pap, O2 Flow Rate 40.0 . Vital Sign Comment: [] EKG Rhythm: Sinus Tachycardia Rhythm change?: N MD Notified?: N - MD Response: Latest Mcdowell Fall Score: 30 Fall Risk: Medium Risk Safety Measures: Call light Within Reach, Bed Alarm Zone 2, Side Rails Side Rails x3, Bed position Low and Locked. Fall Precautions: Door Sign Report given to [JARAD AGUIRRE].
[2020-07-06 08:00] VITALS: BP 154/95
[2020-07-06] MEDS: Docusate 100mg/10ml Liq NG SCH (08:31)
[2020-07-06] MEDS: Solu-MEDROL 40mg Inj IVP SCH ×2 (08:33→20:57)
[2020-07-06] MEDS: Enoxaparin 60mg Inj SUBQ SCH ×2 (08:33→21:23)
--- NOTE | 2020-07-06 10:01 | NUR ---
RD ASSESSMENT & RECOMMENDATIONS SEE CARE ACTIVITY FOR COMPLETE ASSESSMENT DAILY ESTIMATED NEEDS: Needs based on pulmonary 61kg abw 25-30 kcals/kg 4323-7641 total kcals 1.25-1.5 g protein/kg 76-92 g total protein 25-30 mL/kg 8039-9577 total fluid mLs NUTRITION DIAGNOSIS: Predicted poor po intake r/t respiratory status/ bipap use as evidenced by pt is covid ++, on bipap, desats when off device, diet now advanced from clear liquid diet to full liquid. CURRENT DIET: Full liquid PO DIET RECOMMENDATIONS: rec [employer] eval for diet texture-> Regular diet ENTERAL NUTRITION RECOMMENDATIONS: Consult RD for non-oral TF recs if part of POC and appropriate w/ BIPAP ADDITIONAL RECOMMENDATIONS: 1) Pt unable to tolerate oral po, consider non oral feeds as medically able 2) Monitor BGs w/ Solumedrol, need for NISS: elev BGs, poor PO 3) Check HgA1C 4) [employer] eval for appropriate texture 5) Ensure Enlive TID added w/ full liquid diet. Poor intake, consider NGT feeds if medically appropriate w/ bipap -> or TPN if NGT feeds not appropriate w/ BIPAP.
--- NOTE | 2020-07-06 11:08 | Pulmonology Progress Note ---
Subjective ROS Limited/Unobtainable: Yes Interval Events: seen in SDU Constitutional: Reports: no symptoms HEENT: Repors: no symptoms Respiratory: Reports: no symptoms Cardiovascular: Reports: no symptoms Gastrointestinal/Abdominal: Reports: no symptoms Allergies: Coded Allergies: No Known Allergies (Unverified , 06/18/20) Objective Last 24 Hour Vital Signs Date Time Temp Pulse Resp B/P (MAP) Pulse Ox O2 Delivery O2 Flow Rate FiO2 07/06/20 08:00 97.2 110 20 154/95 (114) 96 07/06/20 07:53 100 07/06/20 07:46 110 07/06/20 07:00 114 15 100 100 07/06/20 04:20 Bi-pap Bi-pap 07/06/20 04:00 100 07/06/20 04:00 98.2 100 18 124/96 (105) 97 07/06/20 04:00 101 07/06/20 03:33 96 27 95 100 07/06/20 00:00 97.9 107 19 107/72 (84) 93 07/06/20 00:00 113 07/06/20 00:00 100 07/06/20 00:00 Bi-pap Bi-pap 07/05/20 23:08 111 25 91 100 07/05/20 20:00 112 07/05/20 20:00 97.6 112 18 127/71 (89) 93 07/05/20 20:00 Bi-pap Bi-pap 07/05/20 20:00 100 07/05/20 19:27 109 22 94 100 07/05/20 16:00 Bi-pap Bi-pap 07/05/20 16:00 100 07/05/20 16:00 97.5 123 30 118/82 (94) 88 07/05/20 16:00 125 07/05/20 14:55 116 28 91 100 07/05/20 12:15 116 29 88 100 07/05/20 12:00 96.1 121 32 104/72 (83) 82 07/05/20 12:00 124 07/05/20 12:00 Bi-pap Bi-pap 07/05/20 12:00 100 Intake and Output 07/05/20 07/06/20 19:00 07:00 # Voids 1 3 General Appearance: no acute distress HEENT: normocephalic Respiratory: chest wall non-tender, lungs clear Cardiovascular: normal peripheral pulses Abdomen: normal bowel sounds Extremities: no cyanosis Laboratory Tests 07/05/20 11:53: Arterial Blood pH 7.485H, Arterial Blood Partial Pressure CO2 35.3, Arterial Blood Partial Pressure O2 48.8*L, Arterial Blood HCO3 26.0, Arterial Blood Oxygen Saturation 86.4*L, Arterial Blood Base Excess 2.9H, Roshan Test Positive Current Medications Medications (Trade) Dose Ordered Sig/Yoselin Route PRN Reason Start Time Stop Time Status Last Admin Dose Admin Acetaminophen (Tylenol) 650 mg Q6H PRN ORAL Temp >100.5 07/03/20 16:30 08/02/20 16:29 Acetaminophen (Tylenol) 650 mg Q6H PRN ORAL For Pain 06/18/20 22:00 07/18/20 21:59 07/03/20 20:59 Acetaminophen (Tylenol) 650 mg Q6H PRN RECTAL Temp >100.5 07/04/20 20:45 08/03/20 20:44 07/04/20 21:07 Dextrose/Sodium Chloride 1,000 ml @ 50 mls/hr Q20H IV 07/05/20 10:30 08/04/20 10:29 07/06/20 06:15 Docusate Sodium (Colace) 100 mg TWICE A DAY NG 06/25/20 18:00 07/25/20 17:59 07/06/20 08:31 Enoxaparin Sodium (Lovenox) 60 mg EVERY 12 HOURS SUBQ 07/05/20 10:30 10/03/20 10:29 07/06/20 08:33 Famotidine (Pepcid I.v.) 20 mg Q12HR IVP 07/02/20 21:00 08/01/20 20:59 07/06/20 08:31 Furosemide (Lasix) 40 mg EVERY 12 HOURS IV 07/03/20 14:30 08/02/20 14:29 07/06/20 08:31 Methylprednisolone Sodium Succinate (Solu-MEDROL) 40 mg EVERY 12 HOURS IVP 07/04/20 12:45 10/02/20 12:44 07/06/20 08:33 Ondansetron HCl (Zofran) 4 mg Q6H PRN IVP Nausea & Vomiting 06/18/20 22:00 07/18/20 21:59 Assessment/Plan Assessment/Plan IMPRESSION: 1. COVID-19 pneumonia. - s/p decadron (06/22-06/28) - s/p broad-spectrum antibiotics - s/p remdesivir - CXR 06/26 better 2. Respiratory failure. - currently on BiPAP saturating at 98%; failed lowering FiO2 - will attempt weaning again; however he is still requiring 100% FiO2 - will attempt course of steroids (solumedrol) 3. Pulmonary embolism. - s/p heparin - Back on Lovenox as he cannot tolerate PO meds 4. Troponin leak. - 2D echo showed LV EF 65% Attempted venti-mask.. unsuccessful Tea Peterson Omar Syed MD Jul 06, 2020 11:08
--- NOTE | 2020-07-06 11:53 | Infectious Diseases Prog Note ---
Assessment/Plan Assessment/Plan antibiotics : none A 1. COVID 19 pneumonia on bipap 100 % Fi O2 with 96 % saturation s/p remdesivir 2. pulmonary embolism 3. respiratory failure P 1. continue solumedrol 2. continue isolation Subjective ROS Limited/Unobtainable: Yes Allergies: Coded Allergies: No Known Allergies (Unverified , 06/18/20) Objective Last 24 Hour Vital Signs Date Time Temp Pulse Resp B/P (MAP) Pulse Ox O2 Delivery O2 Flow Rate FiO2 07/06/20 08:00 97.2 110 20 154/95 (114) 96 07/06/20 07:53 100 07/06/20 07:46 110 07/06/20 07:00 114 15 100 100 07/06/20 04:20 Bi-pap Bi-pap 07/06/20 04:00 100 07/06/20 04:00 98.2 100 18 124/96 (105) 97 07/06/20 04:00 101 07/06/20 03:33 96 27 95 100 07/06/20 00:00 97.9 107 19 107/72 (84) 93 07/06/20 00:00 113 07/06/20 00:00 100 07/06/20 00:00 Bi-pap Bi-pap 07/05/20 23:08 111 25 91 100 07/05/20 20:00 112 07/05/20 20:00 97.6 112 18 127/71 (89) 93 07/05/20 20:00 Bi-pap Bi-pap 07/05/20 20:00 100 07/05/20 19:27 109 22 94 100 07/05/20 16:00 Bi-pap Bi-pap 07/05/20 16:00 100 07/05/20 16:00 97.5 123 30 118/82 (94) 88 07/05/20 16:00 125 07/05/20 14:55 116 28 91 100 07/05/20 12:15 116 29 88 100 07/05/20 12:00 96.1 121 32 104/72 (83) 82 07/05/20 12:00 124 07/05/20 12:00 Bi-pap Bi-pap 07/05/20 12:00 100 Height (Feet): 5 Height (Inches): 4.00 Weight (Pounds): 146 Laboratory Tests Test 07/05/20 11:53 Arterial Blood pH 7.485 (7.350-7.450) Arterial Blood Partial Pressure CO2 35.3 mmHg (35.0-45.0) Arterial Blood Partial Pressure O2 48.8 mmHg (75.0-100.0) Arterial Blood HCO3 26.0 mmol/L (22.0-26.0) Arterial Blood Oxygen Saturation 86.4 % (95-100) *L Arterial Blood Base Excess 2.9 (-2-2) H Roshan Test Positive Current Medications Medications (Trade) Dose Ordered Sig/Yoselin Route PRN Reason Start Time Stop Time Status Last Admin Dose Admin Acetaminophen (Tylenol) 650 mg Q6H PRN ORAL Temp >100.5 07/03/20 16:30 08/02/20 16:29 Acetaminophen (Tylenol) 650 mg Q6H PRN ORAL For Pain 06/18/20 22:00 07/18/20 21:59 07/03/20 20:59 Acetaminophen (Tylenol) 650 mg Q6H PRN RECTAL Temp >100.5 07/04/20 20:45 08/03/20 20:44 07/04/20 21:07 Dextrose/Sodium Chloride 1,000 ml @ 50 mls/hr Q20H IV 07/05/20 10:30 08/04/20 10:29 07/06/20 06:15 Docusate Sodium (Colace) 100 mg TWICE A DAY NG 06/25/20 18:00 07/25/20 17:59 07/06/20 08:31 Enoxaparin Sodium (Lovenox) 60 mg EVERY 12 HOURS SUBQ 07/05/20 10:30 10/03/20 10:29 07/06/20 08:33 Famotidine (Pepcid I.v.) 20 mg Q12HR IVP 07/02/20 21:00 08/01/20 20:59 07/06/20 08:31 Furosemide (Lasix) 40 mg EVERY 12 HOURS IV 07/03/20 14:30 08/02/20 14:29 07/06/20 08:31 Methylprednisolone Sodium Succinate (Solu-MEDROL) 40 mg EVERY 12 HOURS IVP 07/04/20 12:45 10/02/20 12:44 07/06/20 08:33 Ondansetron HCl (Zofran) 4 mg Q6H PRN IVP Nausea & Vomiting 06/18/20 22:00 07/18/20 21:59 Swapna Falk MD Jul 06, 2020 11:53
[2020-07-06 12:00] VITALS: BP 121/63
--- NOTE | 2020-07-06 14:46 | NUR ---
Chief Fishery DivisionProfessor Of Violin SI: Respiratory Failure, Pulmonary Emboli, COVID-19 T 97.7, HR 103, RR 20, BP 121/63, O2 Sat 100% BIPAP 18/10 FiO2 100%, O2 Sat 100% WBC 9.3, NA+ 134 IS: Pepcid IV lovenox sq bid Solu-medrol IVP q 12 h Lasix IV q 12 h D5/NS IV @ 50cc/hr Step Down Status
[2020-07-06 16:00] VITALS: BP 147/80
[2020-07-06] MEDS: Docusate 100mg/10ml Liq ORAL SCH (17:25)
--- NOTE | 2020-07-06 19:15 | NUR ---
NURSE NOTES: Received report from Sabine AGUIRRE, Pt in bed awake, watching tv . A/Ox 3 Armenian speaking-able to make needs known, in no apparent acute cardiac or respiratory distress noted. Pt appears to be tolerating current BIPAP settings 22/6 fio2 at 100% saturating in 95%. Iv site on L forearm 22 intact patent and flushed well. Safety measures in place, bed in lowest position and locked. Bed alarmed activated .Pt. has urinal at bedside and within easy reach.
--- NOTE | 2020-07-06 19:19 | NUR ---
NURSE NOTES: NURSE HAND-OFF REPORT: Important Events on Shift:stable Patient Status: full Diet: full liquid Pending Orders: [] Pending Results/Labs:[] Pending MD notification:[] Latest Vital Signs: Temperature 97.9 , Pulse 117 , B/P 147 /80 , Respiratory Rate 21 , O2 SAT 96 , Bi-pap, O2 Flow Rate 40.0 . Vital Sign Comment: stable EKG Rhythm: Sinus Tachycardia Rhythm change?: N MD Notified?: N - MD Response: Latest Mcdowell Fall Score: 30 Fall Risk: Medium Risk Safety Measures: Call light Within Reach, Bed Alarm Zone 2, Side Rails Side Rails x3, Bed position Low and Locked. Fall Precautions: Door Sign Report given to nhan walter
[2020-07-06 20:00] VITALS: BP 97/81
[2020-07-07] VITALS: BP 142/76
--- NOTE | 2020-07-07 00:39 | Cardiology Progress Note ---
Subjective DATE OF SERVICE: Jul 06, 2020 Remains on bipap support, requiring high flow oxygen - still unable to taper. Remains on full anti-coagulation. Diureses periodically with furosemide Monitor: sinus rhythm with rare ectopics 2D Echo - normal LVEF, no signs RV strain, normal PA pressure of 30mm Hg CXR (07/01) bilateral infiltrates without change ABG (07/05) 7.48/35/49 Objective Last 24 Hour Vital Signs Date Time Temp Pulse Resp B/P (MAP) Pulse Ox O2 Delivery O2 Flow Rate FiO2 07/07/20 00:00 Bi-pap Bi-pap 07/07/20 00:00 97.3 97 25 142/76 (98) 97 07/06/20 23:01 91 07/06/20 22:04 91 20 99 100 07/06/20 20:00 97.9 97 25 97/81 (86) 95 07/06/20 20:00 100 07/06/20 19:22 100 25 99 100 07/06/20 19:02 102 07/06/20 16:00 97.9 117 21 147/80 (102) 96 07/06/20 16:00 100 07/06/20 15:21 105 07/06/20 14:52 107 21 98 100 07/06/20 12:00 97.7 103 20 121/63 (82) 100 07/06/20 12:00 100 07/06/20 11:49 105 07/06/20 10:50 98 26 96 100 07/06/20 08:00 Bi-pap Bi-pap 07/06/20 08:00 97.2 110 20 154/95 (114) 96 07/06/20 07:53 100 07/06/20 07:46 110 07/06/20 07:00 114 15 100 100 07/06/20 04:20 Bi-pap Bi-pap 07/06/20 04:00 100 07/06/20 04:00 98.2 100 18 124/96 (105) 97 07/06/20 04:00 101 07/06/20 03:33 96 27 95 100 ROS: unchanged from 06/19/20 HEENT: other - bipap RHYTHM: ST LUNGS: bilat. 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 Diuresis for negative fluid balance Full anticoagulation Monitor for sustained atrial arrhythmias Replace lytes as needed Insulin cov'g by SS Will continue periodic diuresis to maintain negative fluid balance and possibly improve oxygenation. Aden Mejias MD Jul 07, 2020 00:39
--- NOTE | 2020-07-07 01:30 | NUR ---
NURSE NOTES: Pt pulled out his iv access and keep removing his bipap on his face that made him to desat.
--- NOTE | 2020-07-07 01:45 | NUR ---
NURSE NOTES: Initiated soft bilateral wrist restraints.
[2020-07-07 04:00] VITALS: BP 149/72
[2020-07-07 06:28] LABS: HEMATOCRIT 41.6 % (42.0-52.0); HEMOGLOBIN 14.4 G/DL (14.2-18.0); MEAN CORPUSCULAR VOLUME 94 FL (80-99); PLATELET COUNT 402 K/UL (150-450); RED CELL DISTRIBUTION WIDTH 15.5 % (11.6-14.8); WHITE BLOOD COUNT 15.6 K/UL (4.8-10.8)
--- NOTE | 2020-07-07 07:20 | NUR ---
NURSE HAND-OFF REPORT: Important Events on Shift: Patient Status: Fair Diet: Full liquid Pending Orders: Pending Results/Labs: Pending MD notification: Latest Vital Signs: Temperature 97.2 , Pulse 91 , B/P 149 /72 , Respiratory Rate 21 , O2 SAT 100 , Bi-pap, O2 Flow Rate 40.0 . Vital Sign Comment: EKG Rhythm: Sinus Rhythm Rhythm change?: N MD Notified?: N - MD Response: Latest Mcdowell Fall Score: 30 Fall Risk: Medium Risk Safety Measures: Call light Within Reach, Bed Alarm Zone 2, Side Rails Side Rails x3, Bed position Low and Locked. Fall Precautions: Door Sign Report given to Donna Douglas RN
[2020-07-07 08:00] VITALS: BP 129/72
[2020-07-07] MEDS: Docusate 100mg/10ml Liq ORAL SCH (08:26)
[2020-07-07] MEDS: Solu-MEDROL 40mg Inj IVP SCH ×2 (08:27→20:58)
[2020-07-07] MEDS: Enoxaparin 60mg Inj SUBQ SCH ×2 (08:29→21:04)
[2020-07-07 09:00] LABS: ALBUMIN 2.6 G/DL (3.4-5.0); ALBUMIN/GLOBULIN RATIO 0.5 (1.0-2.7); BILIRUBIN,TOTAL 0.5 MG/DL (0.2-1.0); CALCIUM 9.6 MG/DL (8.5-10.1); CREATININE 1.6 MG/DL (0.55-1.30); PHOSPHORUS 5.5 MG/DL (2.5-4.9); POTASSIUM 3.5 MMOL/L (3.5-5.1)
--- NOTE | 2020-07-07 09:45 | Cardiology Progress Note ---
Subjective DATE OF SERVICE: Jul 07, 2020 Remains on bipap support, requiring high flow oxygen - still unable to taper. Remains on full anti-coagulation. Diureses periodically with furosemide Monitor: sinus rhythm with rare ectopics 2D Echo - normal LVEF, no signs RV strain, normal PA pressure of 30mm Hg CXR (07/07) bilateral infiltrates with interim improvement ABG (07/05) 7.48/35/49 Objective Last 24 Hour Vital Signs Date Time Temp Pulse Resp B/P (MAP) Pulse Ox O2 Delivery O2 Flow Rate FiO2 07/07/20 08:00 97.0 104 20 129/72 (91) 99 07/07/20 08:00 100 07/07/20 07:57 Bi-pap Bi-pap 07/07/20 06:30 110 25 99 100 07/07/20 04:00 97.2 91 21 149/72 (97) 100 07/07/20 04:00 Bi-pap Bi-pap 07/07/20 04:00 100 07/07/20 03:02 95 07/07/20 02:51 98 24 100 100 07/07/20 00:00 Bi-pap Bi-pap 07/07/20 00:00 97.3 97 25 142/76 (98) 97 07/06/20 23:01 91 07/06/20 22:04 91 20 99 100 07/06/20 20:00 97.9 97 25 97/81 (86) 95 07/06/20 20:00 100 07/06/20 19:22 100 25 99 100 07/06/20 19:02 102 07/06/20 16:00 97.9 117 21 147/80 (102) 96 07/06/20 16:00 100 07/06/20 15:21 105 07/06/20 14:52 107 21 98 100 07/06/20 12:00 97.7 103 20 121/63 (82) 100 07/06/20 12:00 100 07/06/20 11:49 105 07/06/20 10:50 98 26 96 100 ROS: unchanged from 06/19/20 HEENT: other - bipap RHYTHM: ST LUNGS: bilat. rhonchi and rales CARDIAC: normal rate, regular rhythm, normal S1 and S2 ABDOMEN: normal bowel sounds, soft, distended EXTREMITIES: normal range of motion, non-tender, trace edema Laboratory Tests Test 07/07/20 04:30 07/07/20 08:28 White Blood Count 15.6 K/UL (4.8-10.8) H Red Blood Count 4.40 M/UL (4.70-6.10) L Hemoglobin 14.4 G/DL (14.2-18.0) Hematocrit 41.6 % (42.0-52.0) L Mean Corpuscular Volume 94 FL (80-99) Mean Corpuscular Hemoglobin 32.7 PG (27.0-31.0) H Mean Corpuscular Hemoglobin Concent 34.6 G/DL (32.0-36.0) Red Cell Distribution Width 15.5 % (11.6-14.8) H Platelet Count 402 K/UL (150-450) Mean Platelet Volume 7.5 FL (6.5-10.1) Neutrophils (%) (Auto) % (45.0-75.0) Lymphocytes (%) (Auto) % (20.0-45.0) Monocytes (%) (Auto) % (1.0-10.0) Eosinophils (%) (Auto) % (0.0-3.0) Basophils (%) (Auto) % (0.0-2.0) Neutrophils % (Manual) Pending Lymphocytes % (Manual) Pending Platelet Estimate Pending Platelet Morphology Pending Sodium Level 152 MMOL/L (136-145) H Potassium Level 3.5 MMOL/L (3.5-5.1) Chloride Level 115 MMOL/L (98-107) H Carbon Dioxide Level 25 MMOL/L (21-32) Anion Gap 12 mmol/L (5-15) Blood Urea Nitrogen 75 mg/dL (7-18) H Creatinine 1.6 MG/DL (0.55-1.30) H Estimat Glomerular Filtration Rate 45.8 mL/min (>60) Glucose Level 355 MG/DL (74-106) H Calcium Level 9.6 MG/DL (8.5-10.1) Phosphorus Level 5.5 MG/DL (2.5-4.9) H Magnesium Level 2.9 MG/DL (1.8-2.4) H Total Bilirubin 0.5 MG/DL (0.2-1.0) Aspartate Amino Transf (AST/SGOT) 12 U/L (15-37) L Alanine Aminotransferase (ALT/SGPT) 32 U/L (12-78) Alkaline Phosphatase 119 U/L (46-116) H Total Protein 8.0 G/DL (6.4-8.2) Albumin 2.6 G/DL (3.4-5.0) L Globulin 5.4 g/dL Albumin/Globulin Ratio 0.5 (1.0-2.7) L Assessment/Plan Assessment/Plan COVID 19 PNA Hypoxia Ac pulmonary embolism Acute coronary syndrome/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 Diuresis for negative fluid balance Full anticoagulation Monitor for sustained atrial arrhythmias Replace lytes as needed Insulin cov'g by SS Will continue periodic diuresis to maintain negative fluid balance and possibly improve oxygenation. Aden Mejias MD Jul 07, 2020 09:45
--- NOTE | 2020-07-07 10:34 | Infectious Diseases Prog Note ---
Assessment/Plan Assessment/Plan IMPRESSION: 1. Sepsis with tachycardia, tachypnea and leukocytosis. 2. COVID-19 pneumonia. 3. Pulmonary emboli. 4. Hypoxic respiratory failure, 5. Elevated troponin. RECOMMENDATION: Finished Remdesivir course Continue Solumedrol Repeat CXR Subjective ROS Limited/Unobtainable: Yes Neurologic: Reports: confusion, other - on restraint Allergies: Coded Allergies: No Known Allergies (Unverified , 06/18/20) Objective Last 24 Hour Vital Signs Date Time Temp Pulse Resp B/P (MAP) Pulse Ox O2 Delivery O2 Flow Rate FiO2 07/07/20 08:00 97.0 104 20 129/72 (91) 99 07/07/20 08:00 100 07/07/20 07:57 Bi-pap Bi-pap 07/07/20 07:57 108 07/07/20 06:30 110 25 99 100 07/07/20 04:00 97.2 91 21 149/72 (97) 100 07/07/20 04:00 Bi-pap Bi-pap 07/07/20 04:00 100 07/07/20 03:02 95 07/07/20 02:51 98 24 100 100 07/07/20 00:00 Bi-pap Bi-pap 07/07/20 00:00 97.3 97 25 142/76 (98) 97 07/06/20 23:01 91 07/06/20 22:04 91 20 99 100 07/06/20 20:00 97.9 97 25 97/81 (86) 95 07/06/20 20:00 100 07/06/20 19:22 100 25 99 100 07/06/20 19:02 102 07/06/20 16:00 97.9 117 21 147/80 (102) 96 07/06/20 16:00 100 07/06/20 15:21 105 07/06/20 14:52 107 21 98 100 07/06/20 12:00 97.7 103 20 121/63 (82) 100 07/06/20 12:00 100 07/06/20 11:49 105 07/06/20 10:50 98 26 96 100 Height (Feet): 5 Height (Inches): 4.00 Weight (Pounds): 146 HEENT: mucous membranes moist Respiratory/Chest: other - on BIPAP, PTQ1=002% Abdomen: soft, non tender Extremities: no edema Neurologic/Psychiatric: disoriented Laboratory Tests Test 07/07/20 04:30 07/07/20 08:28 White Blood Count 15.6 K/UL (4.8-10.8) H Red Blood Count 4.40 M/UL (4.70-6.10) L Hemoglobin 14.4 G/DL (14.2-18.0) Hematocrit 41.6 % (42.0-52.0) L Mean Corpuscular Volume 94 FL (80-99) Mean Corpuscular Hemoglobin 32.7 PG (27.0-31.0) H Mean Corpuscular Hemoglobin Concent 34.6 G/DL (32.0-36.0) Red Cell Distribution Width 15.5 % (11.6-14.8) H Platelet Count 402 K/UL (150-450) Mean Platelet Volume 7.5 FL (6.5-10.1) Neutrophils (%) (Auto) % (45.0-75.0) Lymphocytes (%) (Auto) % (20.0-45.0) Monocytes (%) (Auto) % (1.0-10.0) Eosinophils (%) (Auto) % (0.0-3.0) Basophils (%) (Auto) % (0.0-2.0) Differential Total Cells Counted 100 Neutrophils % (Manual) 92 % (45-75) H Lymphocytes % (Manual) 5 % (20-45) L Monocytes % (Manual) 3 % (1-10) Eosinophils % (Manual) 0 % (0-3) Basophils % (Manual) 0 % (0-2) Band Neutrophils 0 % (0-8) Platelet Estimate Adequate Platelet Morphology Normal Anisocytosis 1+ Sodium Level 152 MMOL/L (136-145) H Potassium Level 3.5 MMOL/L (3.5-5.1) Chloride Level 115 MMOL/L (98-107) H Carbon Dioxide Level 25 MMOL/L (21-32) Anion Gap 12 mmol/L (5-15) Blood Urea Nitrogen 75 mg/dL (7-18) H Creatinine 1.6 MG/DL (0.55-1.30) H Estimat Glomerular Filtration Rate 45.8 mL/min (>60) Glucose Level 355 MG/DL (74-106) H Calcium Level 9.6 MG/DL (8.5-10.1) Phosphorus Level 5.5 MG/DL (2.5-4.9) H Magnesium Level 2.9 MG/DL (1.8-2.4) H Total Bilirubin 0.5 MG/DL (0.2-1.0) Aspartate Amino Transf (AST/SGOT) 12 U/L (15-37) L Alanine Aminotransferase (ALT/SGPT) 32 U/L (12-78) Alkaline Phosphatase 119 U/L (46-116) H Total Protein 8.0 G/DL (6.4-8.2) Albumin 2.6 G/DL (3.4-5.0) L Globulin 5.4 g/dL Albumin/Globulin Ratio 0.5 (1.0-2.7) L Current Medications Medications (Trade) Dose Ordered Sig/Yoselin Route PRN Reason Start Time Stop Time Status Last Admin Dose Admin Acetaminophen (Tylenol) 650 mg Q6H PRN ORAL Temp >100.5 07/03/20 16:30 08/02/20 16:29 Acetaminophen (Tylenol) 650 mg Q6H PRN ORAL For Pain 06/18/20 22:00 07/18/20 21:59 07/03/20 20:59 Acetaminophen (Tylenol) 650 mg Q6H PRN RECTAL Temp >100.5 07/04/20 20:45 08/03/20 20:44 07/04/20 21:07 Dextrose 1,000 ml @ 50 mls/hr Q20H IV 07/07/20 10:15 08/06/20 10:14 Docusate Sodium (Colace) 100 mg TWICE A DAY ORAL 07/06/20 18:00 07/25/20 17:59 07/07/20 08:26 Enoxaparin Sodium (Lovenox) 60 mg EVERY 12 HOURS SUBQ 07/05/20 10:30 10/03/20 10:29 07/07/20 08:29 Famotidine (Pepcid I.v.) 20 mg Q12HR IVP 07/02/20 21:00 08/01/20 20:59 07/07/20 08:27 Furosemide (Lasix) 40 mg DAILY IV 07/07/20 09:00 08/02/20 14:29 07/07/20 08:26 Methylprednisolone Sodium Succinate (Solu-MEDROL) 40 mg EVERY 12 HOURS IVP 07/04/20 12:45 10/02/20 12:44 07/07/20 08:27 Ondansetron HCl (Zofran) 4 mg Q6H PRN IVP Nausea & Vomiting 06/18/20 22:00 07/18/20 21:59 Arturo Dudley MD Jul 07, 2020 10:34
[2020-07-07 12:00] VITALS: BP 136/97
--- NOTE | 2020-07-07 12:45 | NUR ---
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
--- NOTE | 2020-07-07 12:48 | Pulmonology Progress Note ---
Subjective ROS Limited/Unobtainable: Yes Interval Events: seen in SDU Constitutional: Reports: no symptoms HEENT: Repors: no symptoms Respiratory: Reports: no symptoms Cardiovascular: Reports: no symptoms Gastrointestinal/Abdominal: Reports: no symptoms Allergies: Coded Allergies: No Known Allergies (Unverified , 06/18/20) Objective Last 24 Hour Vital Signs Date Time Temp Pulse Resp B/P (MAP) Pulse Ox O2 Delivery O2 Flow Rate FiO2 07/07/20 12:00 Bi-pap Bi-pap 07/07/20 12:00 97.0 104 18 136/97 (110) 100 07/07/20 12:00 100 07/07/20 08:00 97.0 104 20 129/72 (91) 99 07/07/20 08:00 100 07/07/20 07:57 Bi-pap Bi-pap 07/07/20 07:57 108 07/07/20 06:30 110 25 99 100 07/07/20 04:00 97.2 91 21 149/72 (97) 100 07/07/20 04:00 Bi-pap Bi-pap 07/07/20 04:00 100 07/07/20 03:02 95 07/07/20 02:51 98 24 100 100 07/07/20 00:00 Bi-pap Bi-pap 07/07/20 00:00 97.3 97 25 142/76 (98) 97 07/06/20 23:01 91 07/06/20 22:04 91 20 99 100 07/06/20 20:00 97.9 97 25 97/81 (86) 95 07/06/20 20:00 100 07/06/20 19:22 100 25 99 100 07/06/20 19:02 102 07/06/20 16:00 97.9 117 21 147/80 (102) 96 07/06/20 16:00 100 07/06/20 15:21 105 07/06/20 14:52 107 21 98 100 Intake and Output 07/06/20 07/07/20 19:00 07:00 Intake Total 800 ml 600 ml Output Total 900 ml Balance 800 ml -300 ml Intake Oral 200 ml 300 ml IV Total 600 ml 300 ml Output Urine Total 900 ml # Voids 1 3 General Appearance: no acute distress HEENT: normocephalic Respiratory: chest wall non-tender, lungs clear Cardiovascular: normal peripheral pulses Abdomen: normal bowel sounds Extremities: no cyanosis Laboratory Tests 07/07/20 04:30: White Blood Count 15.6H, Red Blood Count 4.40L, Hemoglobin 14.4, Hematocrit 41.6L, Mean Corpuscular Volume 94, Mean Corpuscular Hemoglobin 32.7H, Mean Corpuscular Hemoglobin Concent 34.6, Red Cell Distribution Width 15.5H, Platelet Count 402, Mean Platelet Volume 7.5, Neutrophils (%) (Auto) , Lymphocytes (%) (Auto) , Monocytes (%) (Auto) , Eosinophils (%) (Auto) , Basophils (%) (Auto) , Differential Total Cells Counted 100, Neutrophils % (Manual) 92H, Lymphocytes % (Manual) 5L, Monocytes % (Manual) 3, Eosinophils % (Manual) 0, Basophils % (Manual) 0, Band Neutrophils 0, Platelet Estimate Adequate, Platelet Morphology Normal, Anisocytosis 1+ 07/07/20 08:28: Sodium Level 152H, Potassium Level 3.5, Chloride Level 115H, Carbon Dioxide Level 25, Anion Gap 12, Blood Urea Nitrogen 75H, Creatinine 1.6H, Estimat Glomerular Filtration Rate 45.8, Glucose Level 355H, Calcium Level 9.6, Phosphorus Level 5.5H, Magnesium Level 2.9H, Total Bilirubin 0.5, Aspartate Amino Transf (AST/SGOT) 12L, Alanine Aminotransferase (ALT/SGPT) 32, Alkaline Phosphatase 119H, Total Protein 8.0, Albumin 2.6L, Globulin 5.4, Albumin/Globulin Ratio 0.5L Current Medications Medications (Trade) Dose Ordered Sig/Yoselin Route PRN Reason Start Time Stop Time Status Last Admin Dose Admin Acetaminophen (Tylenol) 650 mg Q6H PRN ORAL Temp >100.5 07/03/20 16:30 08/02/20 16:29 Acetaminophen (Tylenol) 650 mg Q6H PRN ORAL For Pain 06/18/20 22:00 07/18/20 21:59 07/03/20 20:59 Acetaminophen (Tylenol) 650 mg Q6H PRN RECTAL Temp >100.5 07/04/20 20:45 08/03/20 20:44 07/04/20 21:07 Dextrose 1,000 ml @ 50 mls/hr Q20H IV 07/07/20 10:15 08/06/20 10:14 07/07/20 10:57 Docusate Sodium (Colace) 100 mg TWICE A DAY ORAL 07/06/20 18:00 07/25/20 17:59 07/07/20 08:26 Enoxaparin Sodium (Lovenox) 60 mg EVERY 12 HOURS SUBQ 07/05/20 10:30 10/03/20 10:29 07/07/20 08:29 Famotidine (Pepcid I.v.) 20 mg Q12HR IVP 07/02/20 21:00 08/01/20 20:59 07/07/20 08:27 Furosemide (Lasix) 40 mg DAILY IV 07/07/20 09:00 08/02/20 14:29 07/07/20 08:26 Methylprednisolone Sodium Succinate (Solu-MEDROL) 40 mg EVERY 12 HOURS IVP 07/04/20 12:45 10/02/20 12:44 07/07/20 08:27 Ondansetron HCl (Zofran) 4 mg Q6H PRN IVP Nausea & Vomiting 06/18/20 22:00 07/18/20 21:59 Assessment/Plan Assessment/Plan IMPRESSION: 1. COVID-19 pneumonia. - s/p decadron (06/22-06/28) - s/p broad-spectrum antibiotics - s/p remdesivir - CXR 06/26 better 2. Respiratory failure. - currently on BiPAP saturating at 98%; failed lowering FiO2 - will attempt weaning again; however he is still requiring 100% FiO2 - will attempt course of steroids (solumedrol) 3. Pulmonary embolism. - s/p heparin - Back on Lovenox as he cannot tolerate PO meds 4. Troponin leak. - 2D echo showed LV EF 65% Attempted venti-mask.. unsuccessful Tea Peterson Omar Syed MD Jul 07, 2020 12:48
[2020-07-07 16:00] VITALS: BP 128/86
--- NOTE | 2020-07-07 16:40 | Diagnostic Imaging Report ---
Indication: Dyspnea Technique: One view of the chest Comparison: 07/01/2020 Findings: Bilateral interstitial and airspace infiltrates versus edema appear improved, minimal residual. Pleural spaces are clear. The heart size is normal. Impression: Interim improvement of bilateral interstitial and airspace infiltrates versus edema since prior study
[2020-07-07] MEDS: Docusate 100mg cap ORAL SCH (17:16)
--- NOTE | 2020-07-07 19:32 | NUR ---
NURSE HAND-OFF REPORT: Important Events on Shift:stable Patient Status: full code Diet: full liquid Pending Orders: [] Pending Results/Labs:[] Pending MD notification:[] Latest Vital Signs: Temperature 97.7 , Pulse 102 , B/P 128 /86 , Respiratory Rate 21 , O2 SAT 97 , Bi-pap, O2 Flow Rate 40.0 . Vital Sign Comment: stable EKG Rhythm: Sinus Tachycardia Rhythm change?: N MD Notified?: N - MD Response: Latest Mcdowell Fall Score: 60 Fall Risk: High Risk Safety Measures: Call light Within Reach, Bed Alarm Zone 2, Side Rails Side Rails x3, Bed position Low and Locked. Fall Precautions: Door Sign Report given to everette walter.
--- NOTE | 2020-07-07 19:53 | NUR ---
NURSE NOTES: pt report received from JARAD AGUIRRE. pt condition remains unchanged. pt is alert and oriented times 3, able to respond yes or no simple questions. pt remains on laboratory monitor showing NSR 90HR, no acute distress noted. pt is on BIPAP showing 96% O2 sat, no acute resp distress noted. pt bed is low, locked, armed, call light within reach, bed rails up times 3. will follow plan of care.
[2020-07-07 20:00] VITALS: BP 131/86
--- NOTE | 2020-07-07 21:40 | NUR ---
NURSE NOTES: pts 9PM meds passed. called RT luke to reposition pts BIPAP mask. vitals remains stable.
[2020-07-08] VITALS: BP 136/65
--- NOTE | 2020-07-08 00:10 | NUR ---
NURSE NOTES: repositioned Pt. called Luke RT to secure BIPAP mask. pts vital signs stable.
--- NOTE | 2020-07-08 01:41 | Cardiology Progress Note ---
Subjective DATE OF SERVICE: Jul 08, 2020 Remains on bipap support, requiring high flow oxygen - still unable to taper. Remains on full anti-coagulation. Diureses periodically with furosemide Monitor: sinus rhythm with rare ectopics 2D Echo - normal LVEF, no signs RV strain, normal PA pressure of 30mm Hg CXR (07/07) bilateral infiltrates with interim improvement ABG (07/05) 7.48/35/49 Objective Last 24 Hour Vital Signs Date Time Temp Pulse Resp B/P (MAP) Pulse Ox O2 Delivery O2 Flow Rate FiO2 07/08/20 00:00 Bi-pap Bi-pap 07/08/20 00:00 97.7 65 20 136/65 (88) 100 07/08/20 00:00 100 07/07/20 22:51 98 20 94 100 07/07/20 20:00 100 07/07/20 20:00 98.6 102 20 131/86 (101) 100 07/07/20 20:00 Bi-pap Bi-pap 07/07/20 19:00 102 21 97 100 07/07/20 16:00 97.7 104 28 128/86 (100) 98 07/07/20 16:00 100 07/07/20 16:00 Bi-pap Bi-pap 07/07/20 16:00 112 07/07/20 13:00 102 24 100 100 07/07/20 12:00 Bi-pap Bi-pap 07/07/20 12:00 97.0 104 18 136/97 (110) 100 07/07/20 12:00 100 07/07/20 11:40 104 07/07/20 08:00 97.0 104 20 129/72 (91) 99 07/07/20 08:00 100 07/07/20 07:57 Bi-pap Bi-pap 07/07/20 07:57 108 07/07/20 06:30 110 25 99 100 07/07/20 04:00 97.2 91 21 149/72 (97) 100 07/07/20 04:00 Bi-pap Bi-pap 07/07/20 04:00 100 07/07/20 03:02 95 07/07/20 02:51 98 24 100 100 ROS: unchanged from 06/19/20 HEENT: other - bipap RHYTHM: ST LUNGS: bilat. rhonchi and rales CARDIAC: normal rate, regular rhythm, normal S1 and S2 ABDOMEN: normal bowel sounds, soft, distended EXTREMITIES: normal range of motion, non-tender, trace edema Laboratory Tests Test 07/07/20 04:30 07/07/20 08:28 White Blood Count 15.6 K/UL (4.8-10.8) H Red Blood Count 4.40 M/UL (4.70-6.10) L Hemoglobin 14.4 G/DL (14.2-18.0) Hematocrit 41.6 % (42.0-52.0) L Mean Corpuscular Volume 94 FL (80-99) Mean Corpuscular Hemoglobin 32.7 PG (27.0-31.0) H Mean Corpuscular Hemoglobin Concent 34.6 G/DL (32.0-36.0) Red Cell Distribution Width 15.5 % (11.6-14.8) H Platelet Count 402 K/UL (150-450) Mean Platelet Volume 7.5 FL (6.5-10.1) Neutrophils (%) (Auto) % (45.0-75.0) Lymphocytes (%) (Auto) % (20.0-45.0) Monocytes (%) (Auto) % (1.0-10.0) Eosinophils (%) (Auto) % (0.0-3.0) Basophils (%) (Auto) % (0.0-2.0) Differential Total Cells Counted 100 Neutrophils % (Manual) 92 % (45-75) H Lymphocytes % (Manual) 5 % (20-45) L Monocytes % (Manual) 3 % (1-10) Eosinophils % (Manual) 0 % (0-3) Basophils % (Manual) 0 % (0-2) Band Neutrophils 0 % (0-8) Platelet Estimate Adequate Platelet Morphology Normal Anisocytosis 1+ Sodium Level 152 MMOL/L (136-145) H Potassium Level 3.5 MMOL/L (3.5-5.1) Chloride Level 115 MMOL/L (98-107) H Carbon Dioxide Level 25 MMOL/L (21-32) Anion Gap 12 mmol/L (5-15) Blood Urea Nitrogen 75 mg/dL (7-18) H Creatinine 1.6 MG/DL (0.55-1.30) H Estimat Glomerular Filtration Rate 45.8 mL/min (>60) Glucose Level 355 MG/DL (74-106) H Calcium Level 9.6 MG/DL (8.5-10.1) Phosphorus Level 5.5 MG/DL (2.5-4.9) H Magnesium Level 2.9 MG/DL (1.8-2.4) H Total Bilirubin 0.5 MG/DL (0.2-1.0) Aspartate Amino Transf (AST/SGOT) 12 U/L (15-37) L Alanine Aminotransferase (ALT/SGPT) 32 U/L (12-78) Alkaline Phosphatase 119 U/L (46-116) H Total Protein 8.0 G/DL (6.4-8.2) Albumin 2.6 G/DL (3.4-5.0) L Globulin 5.4 g/dL Albumin/Globulin Ratio 0.5 (1.0-2.7) L Assessment/Plan Assessment/Plan COVID 19 PNA Hypoxia Ac pulmonary embolism Acute coronary syndrome/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 Diuresis for negative fluid balance Full anticoagulation Monitor for sustained atrial arrhythmias Replace lytes as needed Insulin cov'g by SS Will continue diuresis to maintain negative fluid balance and possibly improve oxygenation. Aden Mejias MD Jul 08, 2020 01:41
--- NOTE | 2020-07-08 02:37 | NUR ---
NURSE NOTES: Pt resting in bed. BIPAP on. sating 99% O2.
[2020-07-08 04:00] VITALS: BP 128/87
--- NOTE | 2020-07-08 04:30 | NUR ---
NURSE NOTES: pt resting in bed. IV fluid running as per Doctor orders. no distress noted.
[2020-07-08 05:33] LABS: HEMATOCRIT 45.9 % (42.0-52.0); HEMOGLOBIN 14.4 G/DL (14.2-18.0); MEAN CORPUSCULAR VOLUME 96 FL (80-99); PLATELET COUNT 281 K/UL (150-450); RED CELL DISTRIBUTION WIDTH 13.1 % (11.6-14.8); WHITE BLOOD COUNT 15.6 K/UL (4.8-10.8)
[2020-07-08 06:18] LABS: CREATININE 1.7 MG/DL (0.55-1.30); POTASSIUM 3.4 MMOL/L (3.5-5.1)
--- NOTE | 2020-07-08 07:28 | NUR ---
NURSE HAND-OFF REPORT: Important Events on Shift:[Monitor Bipap and O2 sat] Patient Status: [Monitor BIPAP and O2 sat] Diet: [as per doctor order.] Pending Orders: [NA] Pending Results/Labs:[BMP redraw for glucose. ] Pending MD notification:[NA] Latest Vital Signs: Temperature 97.9 , Pulse 92 , B/P 128 /87 , Respiratory Rate 20 , O2 SAT 100 , Bi-pap, O2 Flow Rate 40.0 . Vital Sign Comment: [Monitor BIPAP and O2 sat] EKG Rhythm: Sinus Rhythm Rhythm change?: N MD Notified?: N - MD Response: Latest Mcdowell Fall Score: 60 Fall Risk: High Risk Safety Measures: Call light Within Reach, Bed Alarm Zone 2, Side Rails Side Rails x3, Bed position Low and Locked. Fall Precautions: Door Sign Report given to [Dorys Ferrera RN].
--- NOTE | 2020-07-08 07:35 | NUR ---
NURSE NOTES: Received report from TIMOTHY gaviria. pt is resting in bed, stable. pt is on Bipap cont /6 Fio2 100% saturating 81-92%. LFA 22g running d5w at 100cc. Pt is on restraints B soft restraints for pulling of safety devices. DTI on nose noted. Pt bed low and locked, call light in reach and bed alarm in reach.
[2020-07-08 08:00] VITALS: BP 139/94
[2020-07-08] MEDS: Solu-MEDROL 40mg Inj IVP SCH ×2 (08:05→20:33)
[2020-07-08] MEDS: Docusate 100mg cap ORAL SCH ×2 (08:05→08:25)
[2020-07-08] MEDS: Enoxaparin 60mg Inj SUBQ SCH ×2 (08:08→20:33)
[2020-07-08 08:55] LABS: CALCIUM 8.9 MG/DL (8.5-10.1); CREATININE 1.8 MG/DL (0.55-1.30); POTASSIUM 3.4 MMOL/L (3.5-5.1)
--- NOTE | 2020-07-08 09:45 | NUR ---
NURSE NOTES: Pt blood sugar came back from lab critical 500 x2/ retook blood glucose bedside 512. Notified FATOUMATA Duran. Pt is stable and asymptomatic. Orders received and acknowledged
[2020-07-08] MEDS ORDERED: NovoLOG Insulin Flexpen SUBQ SCH ×2 (10:00→11:30)
--- NOTE | 2020-07-08 10:07 | NUR ---
NURSE NOTES: D5w stopped per FATOUMATA Barry. awaiting insulin from pharmacy Addendum: 07/08/20 at 1052 by Dorys Nazario RN RN called pharmacy, awaiting insulin pen.
--- NOTE | 2020-07-08 10:12 | Infectious Diseases Prog Note ---
Assessment/Plan Assessment/Plan antibiotics : none A 1. COVID 19 pneumonia on bipap 100 % Fi O2 with 100 % saturation s/p remdesivir 2. pulmonary embolism 3. respiratory failure P 1. continue solumedrol 2. continue isolation Subjective ROS Limited/Unobtainable: Yes Allergies: Coded Allergies: No Known Allergies (Unverified , 06/18/20) Objective Last 24 Hour Vital Signs Date Time Temp Pulse Resp B/P (MAP) Pulse Ox O2 Delivery O2 Flow Rate FiO2 07/08/20 08:00 97.7 80 19 139/94 (109) 100 07/08/20 08:00 100 07/08/20 08:00 90 07/08/20 08:00 Bi-pap Bi-pap 07/08/20 07:58 84 16 100 100 07/08/20 04:00 Bi-pap Bi-pap 07/08/20 04:00 100 07/08/20 04:00 94 07/08/20 04:00 97.9 92 20 128/87 (101) 100 07/08/20 02:44 93 16 99 100 07/08/20 00:00 Bi-pap Bi-pap 07/08/20 00:00 95 07/08/20 00:00 97.7 65 20 136/65 (88) 100 07/08/20 00:00 100 07/07/20 22:51 98 20 94 100 07/07/20 20:00 100 07/07/20 20:00 98.6 102 20 131/86 (101) 100 07/07/20 20:00 Bi-pap Bi-pap 07/07/20 20:00 110 07/07/20 19:00 102 21 97 100 07/07/20 16:00 97.7 104 28 128/86 (100) 98 07/07/20 16:00 100 07/07/20 16:00 Bi-pap Bi-pap 07/07/20 16:00 112 07/07/20 13:00 102 24 100 100 07/07/20 12:00 Bi-pap Bi-pap 07/07/20 12:00 97.0 104 18 136/97 (110) 100 07/07/20 12:00 100 07/07/20 11:40 104 Height (Feet): 5 Height (Inches): 4.00 Weight (Pounds): 146 HEENT: other - on bipap Laboratory Tests Test 07/08/20 02:45 07/08/20 07:57 07/08/20 08:00 07/08/20 09:39 White Blood Count 15.6 K/UL (4.8-10.8) H Red Blood Count 4.80 M/UL (4.70-6.10) Hemoglobin 14.4 G/DL (14.2-18.0) Hematocrit 45.9 % (42.0-52.0) Mean Corpuscular Volume 96 FL (80-99) Mean Corpuscular Hemoglobin 30.0 PG (27.0-31.0) Mean Corpuscular Hemoglobin Concent 31.3 G/DL (32.0-36.0) L Red Cell Distribution Width 13.1 % (11.6-14.8) Platelet Count 281 K/UL (150-450) Mean Platelet Volume 7.6 FL (6.5-10.1) Neutrophils (%) (Auto) % (45.0-75.0) Lymphocytes (%) (Auto) % (20.0-45.0) Monocytes (%) (Auto) % (1.0-10.0) Eosinophils (%) (Auto) % (0.0-3.0) Basophils (%) (Auto) % (0.0-2.0) Differential Total Cells Counted 100 Neutrophils % (Manual) 92 % (45-75) H Lymphocytes % (Manual) 5 % (20-45) L Monocytes % (Manual) 3 % (1-10) Eosinophils % (Manual) 0 % (0-3) Basophils % (Manual) 0 % (0-2) Band Neutrophils 0 % (0-8) Platelet Estimate Adequate Platelet Morphology Normal Red Blood Cell Morphology Normal Sodium Level 150 MMOL/L (136-145) H 147 MMOL/L (136-145) H Potassium Level 3.4 MMOL/L (3.5-5.1) L 3.4 MMOL/L (3.5-5.1) L Chloride Level 110 MMOL/L (98-107) H 110 MMOL/L (98-107) H Carbon Dioxide Level 25 MMOL/L (21-32) 29 MMOL/L (21-32) Anion Gap 15 mmol/L (5-15) 8 mmol/L (5-15) Blood Urea Nitrogen 79 mg/dL (7-18) H 76 mg/dL (7-18) H Creatinine 1.7 MG/DL (0.55-1.30) H 1.8 MG/DL (0.55-1.30) H Estimat Glomerular Filtration Rate 42.7 mL/min (>60) 40.0 mL/min (>60) Glucose Level 503 MG/DL (74-106) #*H 550 MG/DL (74-106) *H Calcium Level 9.0 MG/DL (8.5-10.1) 8.9 MG/DL (8.5-10.1) Lactate Dehydrogenase 447 U/L (81-234) H C-Reactive Protein, Quantitative 3.4 mg/dL (0.00-0.90) H Arterial Blood pH 7.435 (7.350-7.450) Arterial Blood Partial Pressure CO2 39.3 mmHg (35.0-45.0) Arterial Blood Partial Pressure O2 106.9 mmHg (75.0-100.0) H Arterial Blood HCO3 25.8 mmol/L (22.0-26.0) Arterial Blood Oxygen Saturation 97.4 % (95-100) Arterial Blood Base Excess 1.6 (-2-2) Roshan Test Positive POC Whole Blood Glucose 519 MG/DL (74-106) *H Current Medications Medications (Trade) Dose Ordered Sig/Yoselin Route PRN Reason Start Time Stop Time Status Last Admin Dose Admin Acetaminophen (Tylenol) 650 mg Q6H PRN ORAL Temp >100.5 07/03/20 16:30 08/02/20 16:29 Acetaminophen (Tylenol) 650 mg Q6H PRN ORAL For Pain 06/18/20 22:00 07/18/20 21:59 07/03/20 20:59 Acetaminophen (Tylenol) 650 mg Q6H PRN RECTAL Temp >100.5 07/04/20 20:45 08/03/20 20:44 07/04/20 21:07 Dextrose 1,000 ml @ 50 mls/hr Q20H IV 07/07/20 10:15 08/06/20 10:14 07/08/20 08:08 Enoxaparin Sodium (Lovenox) 60 mg EVERY 12 HOURS SUBQ 07/05/20 10:30 10/03/20 10:29 07/08/20 08:08 Famotidine (Pepcid I.v.) 40 mg DAILY IVP 07/08/20 09:00 08/01/20 20:59 07/08/20 08:10 Insulin Aspart (NovoLOG) 12 units ONCE SUBQ 07/08/20 10:00 07/08/20 12:00 Methylprednisolone Sodium Succinate (Solu-MEDROL) 40 mg EVERY 12 HOURS IVP 07/04/20 12:45 10/02/20 12:44 07/08/20 08:05 Ondansetron HCl (Zofran) 4 mg Q6H PRN IVP Nausea & Vomiting 06/18/20 22:00 07/18/20 21:59 Swapna Falk MD Jul 08, 2020 10:12
--- NOTE | 2020-07-08 11:33 | NUR ---
NURSE NOTES: Pt 1130 insulin deferred at this time as insulin was just given at 1100.
--- NOTE | 2020-07-08 11:50 | NUR ---
Chemical LibrarianHeel Seat Trimmer SI: Respiratory Failure, Pulmonary Emboli, COVID-19 T 97.7, HR 90, RR 19, BP 139/94, O2 Sat 100% BIPAP 18/10 FiO2 100%, O2 Sat 100% WBC 15.6, NA+ 147, BUN 76, Creatinine 1.8 Glucose 550 IS: Pepcid IV BID lovenox sq bid Solu-medrol IVP q 12 h D5/NS IV @ 100cc/hr Insulin Novolog sq 12 u once Insulin NovoLog sq sliding scale AC/HS Step Down Status
[2020-07-08 12:00] VITALS: BP 147/80
--- NOTE | 2020-07-08 12:03 | NUR ---
NURSE NOTES: Md Vences and Eric made aware Pt could not tolerate PO medication this morning. FATOUMATA Vences d/c docusate for now.
--- NOTE | 2020-07-08 15:30 | NUR ---
NURSE NOTES: Pt found in room with only one soft wrist restraint on. Pt removed by self the R soft restraint, attempting to pull on Bipap. Placed Pt back on B soft restraints and Pt education provided. pt nods in understanding. pt bed low and locked, call light in reach and bed alarm on.
[2020-07-08 16:00] VITALS: BP 105/43
[2020-07-08] MEDS: NovoLOG Insulin Flexpen SUBQ SCH ×2 (16:16→20:32)
--- NOTE | 2020-07-08 17:04 | Pulmonology Progress Note ---
Subjective ROS Limited/Unobtainable: Yes Interval Events: seen in SDU Constitutional: Reports: no symptoms HEENT: Repors: no symptoms Respiratory: Reports: no symptoms Cardiovascular: Reports: no symptoms Gastrointestinal/Abdominal: Reports: no symptoms Allergies: Coded Allergies: No Known Allergies (Unverified , 06/18/20) Objective Last 24 Hour Vital Signs Date Time Temp Pulse Resp B/P (MAP) Pulse Ox O2 Delivery O2 Flow Rate FiO2 07/08/20 16:00 100 07/08/20 16:00 101 07/08/20 16:00 Bi-pap Bi-pap 07/08/20 16:00 96.4 66 20 105/43 (63) 99 07/08/20 14:41 85 18 100 100 07/08/20 12:00 100 07/08/20 12:00 Bi-pap Bi-pap 07/08/20 12:00 97.7 99 20 147/80 (102) 97 07/08/20 12:00 107 07/08/20 10:50 87 18 100 100 07/08/20 08:00 97.7 80 19 139/94 (109) 100 07/08/20 08:00 100 07/08/20 08:00 90 07/08/20 08:00 Bi-pap Bi-pap 07/08/20 07:58 84 16 100 100 07/08/20 04:00 Bi-pap Bi-pap 07/08/20 04:00 100 07/08/20 04:00 94 07/08/20 04:00 97.9 92 20 128/87 (101) 100 07/08/20 02:44 93 16 99 100 07/08/20 00:00 Bi-pap Bi-pap 07/08/20 00:00 95 07/08/20 00:00 97.7 65 20 136/65 (88) 100 07/08/20 00:00 100 07/07/20 22:51 98 20 94 100 07/07/20 20:00 100 07/07/20 20:00 98.6 102 20 131/86 (101) 100 07/07/20 20:00 Bi-pap Bi-pap 07/07/20 20:00 110 07/07/20 19:00 102 21 97 100 Intake and Output 07/07/20 07/08/20 19:00 07:00 Intake Total 300 ml 1000 ml Output Total 50 ml Balance 250 ml 1000 ml IV Total 300 ml 1000 ml Output Urine Total 50 ml # Voids 3 General Appearance: no acute distress HEENT: normocephalic Respiratory: chest wall non-tender, lungs clear Cardiovascular: normal peripheral pulses Abdomen: normal bowel sounds Extremities: no cyanosis Laboratory Tests 07/08/20 02:45: White Blood Count 15.6H, Red Blood Count 4.80, Hemoglobin 14.4, Hematocrit 45.9, Mean Corpuscular Volume 96, Mean Corpuscular Hemoglobin 30.0, Mean Corpuscular Hemoglobin Concent 31.3L, Red Cell Distribution Width 13.1, Platelet Count 281, Mean Platelet Volume 7.6, Neutrophils (%) (Auto) , Lymphocytes (%) (Auto) , Monocytes (%) (Auto) , Eosinophils (%) (Auto) , Basophils (%) (Auto) , Differential Total Cells Counted 100, Neutrophils % (Manual) 92H, Lymphocytes % (Manual) 5L, Monocytes % (Manual) 3, Eosinophils % (Manual) 0, Basophils % (Manual) 0, Band Neutrophils 0, Platelet Estimate Adequate, Platelet Morphology Normal, Red Blood Cell Morphology Normal, Sodium Level 150H, Potassium Level 3.4L, Chloride Level 110H, Carbon Dioxide Level 25, Anion Gap 15, Blood Urea Nitrogen 79H, Creatinine 1.7H, Estimat Glomerular Filtration Rate 42.7, Glucose Level 503#*H, Calcium Level 9.0, Lactate Dehydrogenase 447H, C-Reactive Protein, Quantitative 3.4H 07/08/20 07:57: Arterial Blood pH 7.435, Arterial Blood Partial Pressure CO2 39.3, Arterial Blood Partial Pressure O2 106.9H, Arterial Blood HCO3 25.8, Arterial Blood Oxygen Saturation 97.4, Arterial Blood Base Excess 1.6, Roshan Test Positive 07/08/20 08:00: Sodium Level 147H, Potassium Level 3.4L, Chloride Level 110H, Carbon Dioxide Level 29, Anion Gap 8, Blood Urea Nitrogen 76H, Creatinine 1.8H, Estimat Glomerular Filtration Rate 40.0, Glucose Level 550*H, Calcium Level 8.9, Hemoglobin A1c 7.2H 07/08/20 09:39: POC Whole Blood Glucose 519*H 07/08/20 11:57: POC Whole Blood Glucose 442H 07/08/20 13:58: POC Whole Blood Glucose 300H 07/08/20 16:10: POC Whole Blood Glucose 233H Current Medications Medications (Trade) Dose Ordered Sig/Yoselin Route PRN Reason Start Time Stop Time Status Last Admin Dose Admin Acetaminophen (Tylenol) 650 mg Q6H PRN ORAL Temp >100.5 07/03/20 16:30 08/02/20 16:29 Acetaminophen (Tylenol) 650 mg Q6H PRN ORAL For Pain 06/18/20 22:00 07/18/20 21:59 07/03/20 20:59 Acetaminophen (Tylenol) 650 mg Q6H PRN RECTAL Temp >100.5 07/04/20 20:45 08/03/20 20:44 07/04/20 21:07 Dextrose 1,000 ml @ 100 mls/hr Q10H IV 07/07/20 10:15 08/06/20 10:14 07/08/20 08:08 Dextrose (Dextrose 50%) 25 ml Q30M PRN IV Hypoglycemia 07/08/20 11:30 10/06/20 11:29 Dextrose (Dextrose 50%) 50 ml Q30M PRN IV Hypoglycemia 07/08/20 11:30 10/06/20 11:29 Enoxaparin Sodium (Lovenox) 60 mg EVERY 12 HOURS SUBQ 07/05/20 10:30 10/03/20 10:29 07/08/20 08:08 Famotidine (Pepcid I.v.) 40 mg DAILY IVP 07/08/20 09:00 08/01/20 20:59 07/08/20 08:10 Insulin Aspart (NovoLOG) BEFORE MEALS AND HS SUBQ 07/08/20 16:30 10/06/20 16:29 07/08/20 16:16 Methylprednisolone Sodium Succinate (Solu-MEDROL) 40 mg EVERY 12 HOURS IVP 07/04/20 12:45 10/02/20 12:44 07/08/20 08:05 Ondansetron HCl (Zofran) 4 mg Q6H PRN IVP Nausea & Vomiting 06/18/20 22:00 07/18/20 21:59 Assessment/Plan Assessment/Plan IMPRESSION: 1. COVID-19 pneumonia. - s/p decadron (06/22-06/28) - s/p broad-spectrum antibiotics - s/p remdesivir - CXR 06/26 better 2. Respiratory failure. - currently on BiPAP saturating at 98%; failed lowering FiO2 - will attempt weaning again; however he is still requiring 100% FiO2 - will attempt course of steroids (solumedrol) 3. Pulmonary embolism. - s/p heparin - Back on Lovenox as he cannot tolerate PO meds 4. Troponin leak. - 2D echo showed LV EF 65% Attempted venti-mask.. unsuccessful Tea Peterson Omar Syed MD Jul 08, 2020 17:04
--- NOTE | 2020-07-08 17:25 | NUR ---
NURSE HAND-OFF REPORT: Important Events on Shift: Pt removed restraints self x1, Pt removed bipap self x1, Patient Status: fc, stable Diet: regular, refusing Pending Orders: Pending Results/Labs: Pending MD notification: Latest Vital Signs: Temperature 96.4 , Pulse 101 , B/P 105 /43 , Respiratory Rate 20 , O2 SAT 99 , Bi-pap, O2 Flow Rate 40.0 . Vital Sign Comment: EKG Rhythm: Sinus Tachycardia Rhythm change?: N MD Notified?: N - MD Response: Latest Mcdowell Fall Score: 60 Fall Risk: High Risk Safety Measures: Call light Within Reach, Bed Alarm Zone 2, Side Rails Side Rails x3, Bed position Low and Locked. Fall Precautions: Door Sign Report to be given. . Addendum: 07/08/20 at 1912 by Dorys Nazario RN RN Pt is stable, report and plan of care endorsed to TIMOTHY Mckinnon
--- NOTE | 2020-07-08 19:15 | NUR ---
NURSE NOTES: pt report received from Dorys Ferrera RN. pt condition remains unchanged. pt is alert and oriented times 3, able to respond yes or no simple questions. pt remains on security monitor showing NSR 92HR, no acute distress noted. pt is on BIPAP showing 95% O2 sat, no acute resp distress noted. pt bed is low, locked, armed, call light within reach, bed rails up times 3. will follow plan of care.
[2020-07-08 20:00] VITALS: BP 147/78
--- NOTE | 2020-07-08 21:20 | NUR ---
NURSE NOTES: 9PM meds passed. pt has a BS of 287, insulin given. pt is asymptomatic.
[2020-07-09] VITALS: BP 122/69
--- NOTE | 2020-07-09 | NUR ---
NURSE NOTES: assess pts BIPAP. pt sating 98% O2. pt is sleeping.
--- NOTE | 2020-07-09 02:05 | NUR ---
NURSE NOTES: pt resing in bed, BIPAP still on. pt sating 97% O2.
[2020-07-09 04:00] VITALS: BP 136/98
--- NOTE | 2020-07-09 04:21 | NUR ---
NURSE NOTES: pt turned cleaned and repositioned. pt is now awake. Bipap still on.
[2020-07-09] MEDS: NovoLOG Insulin Flexpen SUBQ SCH ×4 (05:43→21:26)
--- NOTE | 2020-07-09 07:08 | NUR ---
NURSE HAND-OFF REPORT: Important Events on Shift:[Monitor O2 sat, BIPAP] Patient Status: [unchanged.] Diet: [as per doctor order] Pending Orders: [NA] Pending Results/Labs:[NA] Pending MD notification:[NA] Latest Vital Signs: Temperature 97.2 , Pulse 92 , B/P 136 /98 , Respiratory Rate 20 , O2 SAT 98 , Bi-pap, O2 Flow Rate 40.0 . Vital Sign Comment: [monitor O2 sat and Bipap Use.] EKG Rhythm: Sinus Tachycardia Rhythm change?: N MD Notified?: N - MD Response: Latest Mcdowell Fall Score: 60 Fall Risk: High Risk Safety Measures: Call light Within Reach, Bed Alarm Zone 2, Side Rails Side Rails x3, Bed position Low and Locked. Fall Precautions: Door Sign Report given to [Dorys Ferrera RN].
--- NOTE | 2020-07-09 07:30 | NUR ---
NURSE NOTES: Received report update from TIMOTHY gaviria. pt is resting in bed, stable. pt is on Bipap cont / Fio2 100% saturating 100%. pulse ox changed. LFA 22g running d5w at 100cc. Pt is on restraints B soft restraints for pulling of safety devices. Pt is awake and restless. DTI on nose noted and covered w/ foam. Pt bed low and locked, call light in reach and bed alarm in reach.
[2020-07-09 08:00] VITALS: BP 137/84
[2020-07-09] MEDS: Solu-MEDROL 40mg Inj IVP SCH ×2 (08:51→21:18)
[2020-07-09] MEDS: Enoxaparin 60mg Inj SUBQ SCH ×2 (08:54→21:24)
--- NOTE | 2020-07-09 09:34 | NUR ---
RD ASSESSMENT & RECOMMENDATIONS SEE CARE ACTIVITY FOR COMPLETE ASSESSMENT DAILY ESTIMATED NEEDS: Needs based on pulmonary 61kg abw 25-30 kcals/kg 6965-5088 total kcals 1.25-1.5 g protein/kg 76-92 g total protein 25-30 mL/kg 2556-0867 total fluid mLs NUTRITION DIAGNOSIS: Predicted poor po intake r/t respiratory status/ bipap use as evidenced by pt is covid ++, on bipap, desats when off device, diet now advanced from clear liquid diet to full liquid w/ prolonged poor PO CURRENT DIET: Full liquid PO DIET RECOMMENDATIONS: rec MARKETING SEGMENT MANAGER eval for diet texture-> Regular diet ENTERAL NUTRITION RECOMMENDATIONS: Consult RD for non-oral TF recs if part of POC and appropriate w/ BIPAP PARENTERAL NUTRITION RECOMMENDATIONS: REC TPN IF NGT FEEDS NOT APPROPRIATE DUE TO BIPAP USAGE -> PT W/ MINIMAL INTAKE/REFUSAL X 21 DAYS, UNABLE TO TOLERATE ORAL DIET, DESATS QUICKLY WHEN OFF BIPAP ADDITIONAL RECOMMENDATIONS: 1) PT w/ prolonged poor PO/refusals: DAY 21 -> Rec TPN if NGT feeds not appropriate w/ BIPAP. 2) Check HgA1C ----> 7.2 3) Monitor BGs closely w/ Solumedrol: BGs 500's now also monitor for hypoglycemia while w/ poor PO 4) Monitor lytes, replete as needed .
--- NOTE | 2020-07-09 09:56 | NUR ---
NURSE NOTES: FATOUMATA Vences notified of pts labs; specifically sodium 147, potassium 3.4. notified frandy of dietitian recommendation of TPN. no new orders at this time.
--- NOTE | 2020-07-09 10:11 | Infectious Diseases Prog Note ---
Assessment/Plan Assessment/Plan IMPRESSION: 1. leukocytosis. 2. COVID-19 pneumonia. 3. Pulmonary emboli. 4. Hypoxic respiratory failure, 5. Elevated troponin. RECOMMENDATION: Finished Remdesivir course Continue Solumedrol Repeat CXR shows improvement Subjective ROS Limited/Unobtainable: Yes Constitutional: Denies: fever Neurologic: Reports: confusion, other - on restraint Allergies: Coded Allergies: No Known Allergies (Unverified , 06/18/20) Objective Last 24 Hour Vital Signs Date Time Temp Pulse Resp B/P (MAP) Pulse Ox O2 Delivery O2 Flow Rate FiO2 07/09/20 08:00 65 07/09/20 08:00 100 07/09/20 08:00 97.5 83 23 137/84 (101) 98 07/09/20 08:00 Bi-pap Bi-pap 07/09/20 07:10 70 18 100 100 07/09/20 04:00 100 07/09/20 04:00 92 07/09/20 04:00 97.2 94 20 136/98 (111) 98 07/09/20 04:00 Bi-pap Bi-pap 07/09/20 03:30 48 16 95 100 07/09/20 00:00 100 07/09/20 00:00 Bi-pap Bi-pap 07/09/20 00:00 92 07/09/20 00:00 97.3 68 20 122/69 (86) 99 07/08/20 23:30 50 25 96 100 07/08/20 20:00 104 07/08/20 20:00 100 07/08/20 20:00 Bi-pap Bi-pap 07/08/20 20:00 97.3 93 20 147/78 (101) 99 07/08/20 19:30 90 17 95 100 07/08/20 16:00 100 07/08/20 16:00 101 07/08/20 16:00 Bi-pap Bi-pap 07/08/20 16:00 96.4 66 20 105/43 (63) 99 07/08/20 14:41 85 18 100 100 07/08/20 12:00 100 07/08/20 12:00 Bi-pap Bi-pap 07/08/20 12:00 97.7 99 20 147/80 (102) 97 07/08/20 12:00 107 07/08/20 10:50 87 18 100 100 Height (Feet): 5 Height (Inches): 4.00 Weight (Pounds): 146 HEENT: mucous membranes moist Respiratory/Chest: decreased breath sounds, other - on BIPAP, BOM4=761% Cardiovascular: normal rate Abdomen: soft, non tender Extremities: no edema Neurologic/Psychiatric: other - sleeping Laboratory Tests Test 07/08/20 11:57 07/08/20 13:58 07/08/20 16:10 07/08/20 20:24 POC Whole Blood Glucose 442 MG/DL (74-106) H 300 MG/DL (74-106) H 233 MG/DL (74-106) H Pending Test 07/09/20 05:40 POC Whole Blood Glucose Pending Current Medications Medications (Trade) Dose Ordered Sig/Yoselin Route PRN Reason Start Time Stop Time Status Last Admin Dose Admin Acetaminophen (Tylenol) 650 mg Q6H PRN ORAL Temp >100.5 07/03/20 16:30 08/02/20 16:29 Acetaminophen (Tylenol) 650 mg Q6H PRN ORAL For Pain 06/18/20 22:00 07/18/20 21:59 07/03/20 20:59 Acetaminophen (Tylenol) 650 mg Q6H PRN RECTAL Temp >100.5 07/04/20 20:45 08/03/20 20:44 07/04/20 21:07 Dextrose 1,000 ml @ 100 mls/hr Q10H IV 07/07/20 10:15 08/06/20 10:14 07/09/20 05:35 Dextrose (Dextrose 50%) 25 ml Q30M PRN IV Hypoglycemia 07/08/20 11:30 10/06/20 11:29 Dextrose (Dextrose 50%) 50 ml Q30M PRN IV Hypoglycemia 07/08/20 11:30 10/06/20 11:29 Enoxaparin Sodium (Lovenox) 60 mg EVERY 12 HOURS SUBQ 07/05/20 10:30 10/03/20 10:29 07/09/20 08:54 Famotidine (Pepcid I.v.) 40 mg DAILY IVP 07/08/20 09:00 08/01/20 20:59 07/09/20 08:52 Insulin Aspart (NovoLOG) BEFORE MEALS AND HS SUBQ 07/08/20 16:30 10/06/20 16:29 07/09/20 05:43 Methylprednisolone Sodium Succinate (Solu-MEDROL) 40 mg EVERY 12 HOURS IVP 07/04/20 12:45 10/02/20 12:44 07/09/20 08:51 Ondansetron HCl (Zofran) 4 mg Q6H PRN IVP Nausea & Vomiting 06/18/20 22:00 07/18/20 21:59 Arturo Dudley MD Jul 09, 2020 10:11
--- NOTE | 2020-07-09 10:15 | NUR ---
NURSE NOTES: Pt found in room trying to remove BiPap even with B soft restraints on. Restraints readjusted at this time. Pt education provided on Bipap and restraints. TV and therapeutic talk attempted. Pt is still somewhat restless when awake. Pt 97% on current Bipap settings.
--- NOTE | 2020-07-09 10:44 | NUR ---
[employer] (07/08-07/09) FAXED TO [facility] [phone]
--- NOTE | 2020-07-09 11:15 | NUR ---
RESPIRATORY NOTE: FiO2 titrated to 80% and tolerating well with no signs of respiratory distress or sob noted at this time. SpO2 99% HR 74. RN notified. Will continue to monitor.
--- NOTE | 2020-07-09 11:55 | NUR ---
NURSE NOTES: Found Pt in bed with Bipap disconnected from mask. Pt Spo2 41% labored breathing. reattatched connection to mask immediately. spo2 increased to 71% spo2. RT bedside to adjust mask and straps of BiPap. Pt 100% on Bipap. Titrating Bipap to [address] Reyes.
[2020-07-09 12:00] VITALS: BP 148/80
--- NOTE | 2020-07-09 13:21 | NUR ---
NURSE NOTES: Pt tolerating BiPap at 22/6 FiO2 80%, spo2 100%. Pt cleaned, bed bath, and linen changed at this time. Pt tolerated well, unable to assist with turning self.
--- NOTE | 2020-07-09 13:35 | NUR ---
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
--- NOTE | 2020-07-09 13:52 | NUR ---
NURSE NOTES: Updated Pt of Pt condition
[2020-07-09 16:00] VITALS: BP 135/70
--- NOTE | 2020-07-09 16:53 | Pulmonology Progress Note ---
Subjective ROS Limited/Unobtainable: Yes Interval Events: seen in SDU Constitutional: Denies: fever HEENT: Repors: no symptoms Respiratory: Reports: no symptoms Cardiovascular: Reports: no symptoms Gastrointestinal/Abdominal: Reports: no symptoms Allergies: Coded Allergies: No Known Allergies (Unverified , 06/18/20) Objective Last 24 Hour Vital Signs Date Time Temp Pulse Resp B/P (MAP) Pulse Ox O2 Delivery O2 Flow Rate FiO2 07/09/20 16:00 78 07/09/20 16:00 Bi-pap Bi-pap 07/09/20 16:00 97.7 79 23 135/70 (91) 100 07/09/20 16:00 65 07/09/20 15:15 86 20 93 65 07/09/20 12:00 70 07/09/20 12:00 84 07/09/20 12:00 Bi-pap Bi-pap 07/09/20 12:00 98.2 63 25 148/80 (102) 100 07/09/20 12:00 80 07/09/20 11:15 81 22 99 80 07/09/20 08:00 65 07/09/20 08:00 100 07/09/20 08:00 97.5 83 23 137/84 (101) 98 07/09/20 08:00 Bi-pap Bi-pap 07/09/20 07:10 70 18 100 100 07/09/20 04:00 100 07/09/20 04:00 92 07/09/20 04:00 97.2 94 20 136/98 (111) 98 07/09/20 04:00 Bi-pap Bi-pap 07/09/20 03:30 48 16 95 100 07/09/20 00:00 100 07/09/20 00:00 Bi-pap Bi-pap 07/09/20 00:00 92 07/09/20 00:00 97.3 68 20 122/69 (86) 99 07/08/20 23:30 50 25 96 100 07/08/20 20:00 104 07/08/20 20:00 100 07/08/20 20:00 Bi-pap Bi-pap 07/08/20 20:00 97.3 93 20 147/78 (101) 99 07/08/20 19:30 90 17 95 100 Intake and Output 07/08/20 07/09/20 19:00 07:00 Intake Total 1050 ml Output Total 700 ml Balance 350 ml IV Total 1050 ml Output Urine Total 700 ml # Voids 1 General Appearance: no acute distress HEENT: normocephalic Respiratory: chest wall non-tender, lungs clear Cardiovascular: normal peripheral pulses Abdomen: normal bowel sounds Extremities: no cyanosis Laboratory Tests 07/08/20 20:24: POC Whole Blood Glucose [Pending] 07/09/20 05:40: POC Whole Blood Glucose [Pending] 07/09/20 11:42: POC Whole Blood Glucose 316H 07/09/20 16:01: POC Whole Blood Glucose 356H 07/09/20 16:02: POC Whole Blood Glucose 332H Current Medications Medications (Trade) Dose Ordered Sig/Yoselin Route PRN Reason Start Time Stop Time Status Last Admin Dose Admin Acetaminophen (Tylenol) 650 mg Q6H PRN ORAL Temp >100.5 07/03/20 16:30 08/02/20 16:29 Acetaminophen (Tylenol) 650 mg Q6H PRN ORAL For Pain 06/18/20 22:00 07/18/20 21:59 07/03/20 20:59 Acetaminophen (Tylenol) 650 mg Q6H PRN RECTAL Temp >100.5 07/04/20 20:45 08/03/20 20:44 07/04/20 21:07 Dextrose 1,000 ml @ 100 mls/hr Q10H IV 07/07/20 10:15 08/06/20 10:14 07/09/20 15:58 Dextrose (Dextrose 50%) 25 ml Q30M PRN IV Hypoglycemia 07/08/20 11:30 10/06/20 11:29 Dextrose (Dextrose 50%) 50 ml Q30M PRN IV Hypoglycemia 07/08/20 11:30 10/06/20 11:29 Enoxaparin Sodium (Lovenox) 60 mg EVERY 12 HOURS SUBQ 07/05/20 10:30 10/03/20 10:29 07/09/20 08:54 Famotidine (Pepcid I.v.) 40 mg DAILY IVP 07/08/20 09:00 08/01/20 20:59 07/09/20 08:52 Insulin Aspart (NovoLOG) BEFORE MEALS AND HS SUBQ 07/08/20 16:30 10/06/20 16:29 07/09/20 16:10 Methylprednisolone Sodium Succinate (Solu-MEDROL) 40 mg EVERY 12 HOURS IVP 07/04/20 12:45 10/02/20 12:44 07/09/20 08:51 Ondansetron HCl (Zofran) 4 mg Q6H PRN IVP Nausea & Vomiting 06/18/20 22:00 07/18/20 21:59 Assessment/Plan Assessment/Plan IMPRESSION: 1. COVID-19 pneumonia. - s/p decadron (06/22-06/28) - s/p broad-spectrum antibiotics - s/p remdesivir - CXR 06/26 better 2. Respiratory failure. - currently on BiPAP saturating at 98%; failed lowering FiO2 - will attempt weaning again; however he is still requiring 100% FiO2 - will attempt course of steroids (solumedrol) 3. Pulmonary embolism. - s/p heparin - Back on Lovenox as he cannot tolerate PO meds 4. Troponin leak. - 2D echo showed LV EF 65% Attempted venti-mask.. unsuccessful Tea Peterson Omar Syed MD Jul 09, 2020 16:53
--- NOTE | 2020-07-09 16:55 | NUR ---
RESPIRATORY NOTE: Patient titrated to 65% FiO2 and is tolerating well. SpO2 96% HR 70. No signs of respiratory distress or shortness of breath noted at this time. RN notified. Will continue to monitor.
--- NOTE | 2020-07-09 17:47 | NUR ---
NURSE HAND-OFF REPORT: Important Events on Shift: Titrate to 65% fio2, Patient Status: fc, stable Diet: full liquid diet, no appetite, Eric and FATOUMATA Duran aware Pending Orders: Pending Results/Labs: Pending MD notification: Latest Vital Signs: Temperature 97.7 , Pulse 78 , B/P 135 /70 , Respiratory Rate 23 , O2 SAT 100 , Bi-pap, O2 Flow Rate 40.0 . Vital Sign Comment: EKG Rhythm: Sinus Rhythm Rhythm change?: N MD Notified?: N - MD Response: Latest Mcdowell Fall Score: 60 Fall Risk: High Risk Safety Measures: Call light Within Reach, Bed Alarm Zone 2, Side Rails Side Rails x3, Bed position Low and Locked. Fall Precautions: Door Sign Report to be given. Addendum: 07/09/20 at 1920 by Dorys Nazario RN RN Pt is stable, Plan of care endorsed to TIMOTHY Christiansen.
--- NOTE | 2020-07-09 19:24 | NUR ---
NURSE NOTES: Received report from TIMOTHY Saul, Pt in bed awake, watching tv . A/Ox 3 Latvian speaking-able to make needs known, in no apparent acute cardiac or respiratory distress noted. Pt appears to be tolerating current BIPAP settings 22/6 fio2 at 65% saturating @95%. Iv site on L forearm 22 and L wrist # 22 running D5W @100cc/hr . Both intact, patent and flushed well. . Safety measures in place, bed in lowest position and locked. Bed alarmed activated .Pt. has urinal at bedside and within easy reach. Addendum: 07/09/20 at 1944 by Maddy Avelar RN NURSE NOTES: Bilateral soft wrist restraints noted, skin is intact, no signs of impede circulation noted.
[2020-07-09 20:00] VITALS: BP 113/73
[2020-07-10] VITALS: BP 112/82
--- NOTE | 2020-07-10 01:10 | NUR ---
NURSE NOTES: Pt in bed asleep. In no apparent distress noted. Tolerating bipap settings and saturating @95%. Will continue to monitor and plan of care.
--- NOTE | 2020-07-10 03:09 | NUR ---
NURSE NOTES: Sponge bath given, oral care provided with rt on bedside. Able to removed dried saliva and blood on both nose and mouth. Gown and linens change. Will continue to monitor pt and plan of care.
[2020-07-10 04:00] VITALS: BP 123/82
[2020-07-10] MEDS: NovoLOG Insulin Flexpen SUBQ SCH ×4 (06:13→21:07)
--- NOTE | 2020-07-10 07:14 | NUR ---
NURSE HAND-OFF REPORT: Important Events on Shift: Stable Patient Status: fair Diet: Full liquid Pending Orders: Pending Results/Labs: Pending MD notification: Latest Vital Signs: Temperature 97.5 , Pulse 65 , B/P 123 /82 , Respiratory Rate 19 , O2 SAT 98 , Bi-pap, O2 Flow Rate 40.0 . Vital Sign Comment: Stable EKG Rhythm: Sinus Rhythm Rhythm change?: N MD Notified?: N - MD Response: Latest Mcdowell Fall Score: 60 Fall Risk: High Risk Safety Measures: Call light Within Reach, Bed Alarm Zone 2, Side Rails Side Rails x3, Bed position Low and Locked. Fall Precautions: Door Sign Report given to TIMOTHY Del Rosario .
--- NOTE | 2020-07-10 07:30 | NUR ---
NURSE NOTES: Received pt from TIMOTHY Christiansen. Pt is awake, alert x 3-4, korean speaking. On Bipap tolerating setting of 20/6, FiO2 65%, O2 sat 96%. SOB on exertion. On condom catheter draining yellowish urine. IV line on left forearm is intact and patent. Recent labs, medication and MD orders reviewed. Bed is locked and in lowest position, bed alarm on, call light is with the pt. Will continue to monitor pt. Will continue with the plan of care.
[2020-07-10 08:00] VITALS: BP 103/67
[2020-07-10] MEDS: Solu-MEDROL 40mg Inj IVP SCH (08:53)
[2020-07-10] MEDS: Enoxaparin 60mg Inj SUBQ SCH ×2 (08:54→21:08)
--- NOTE | 2020-07-10 10:00 | NUR ---
NURSE NOTES: Initial assessment done. Pt is tolerating Bipap setting with O2 saturation 95-98%. SB on the monitor. VSS. Morning medications administered per order. Will continue to closely monitor pt.
--- NOTE | 2020-07-10 11:00 | NUR ---
RESPIRATORY NOTE: PT received on BiPAP 15/12 RR:14 65%. Alarms are on and audible. PT is currently using full face mask. Facial tape replaced and no new wounds were found. Optifoam on bridge of nose due to skin breakdown. Carin AGUIRRE. confirmed nursing is aware. Will continue to closely monitor.
--- NOTE | 2020-07-10 11:15 | Infectious Diseases Prog Note ---
Assessment/Plan Assessment/Plan antibiotics : none A 1. COVID 19 pneumonia on bipap 65 % Fi O2 with 95 % saturation s/p remdesivir 2. pulmonary embolism 3. respiratory failure P 1. continue solumedrol taper dose 2. continue isolation Subjective ROS Limited/Unobtainable: Yes Allergies: Coded Allergies: No Known Allergies (Unverified , 06/18/20) Objective Last 24 Hour Vital Signs Date Time Temp Pulse Resp B/P (MAP) Pulse Ox O2 Delivery O2 Flow Rate FiO2 07/10/20 08:00 56 07/10/20 08:00 65 07/10/20 08:00 Bi-pap Bi-pap 07/10/20 08:00 97.5 58 20 103/67 (79) 95 07/10/20 04:00 Bi-pap Bi-pap 07/10/20 04:00 65 07/10/20 04:00 97.5 65 19 123/82 (96) 98 07/10/20 03:52 61 07/10/20 03:26 55 16 98 65 07/10/20 00:00 97.9 66 17 112/82 (92) 96 07/10/20 00:00 Bi-pap Bi-pap 07/09/20 23:42 78 07/09/20 23:30 90 24 95 65 07/09/20 20:00 65 07/09/20 20:00 Bi-pap Bi-pap 07/09/20 20:00 85 07/09/20 20:00 97.5 83 29 113/73 (86) 100 07/09/20 19:30 88 33 93 65 07/09/20 16:00 78 07/09/20 16:00 Bi-pap Bi-pap 07/09/20 16:00 97.7 79 23 135/70 (91) 100 07/09/20 16:00 65 07/09/20 15:15 86 20 93 65 07/09/20 12:00 70 07/09/20 12:00 84 07/09/20 12:00 Bi-pap Bi-pap 07/09/20 12:00 98.2 63 25 148/80 (102) 100 07/09/20 12:00 80 07/09/20 11:15 81 22 99 80 Height (Feet): 5 Height (Inches): 4.00 Weight (Pounds): 146 HEENT: other - on bipap Laboratory Tests Test 07/09/20 11:42 07/09/20 16:01 07/09/20 16:02 07/09/20 21:16 POC Whole Blood Glucose 316 MG/DL (74-106) H 356 MG/DL (74-106) H 332 MG/DL (74-106) H 274 MG/DL (74-106) H Test 07/10/20 06:11 POC Whole Blood Glucose 312 MG/DL (74-106) H Current Medications Medications (Trade) Dose Ordered Sig/Yoselin Route PRN Reason Start Time Stop Time Status Last Admin Dose Admin Acetaminophen (Tylenol) 650 mg Q6H PRN ORAL Temp >100.5 07/03/20 16:30 08/02/20 16:29 Acetaminophen (Tylenol) 650 mg Q6H PRN ORAL For Pain 06/18/20 22:00 07/18/20 21:59 07/03/20 20:59 Acetaminophen (Tylenol) 650 mg Q6H PRN RECTAL Temp >100.5 07/04/20 20:45 08/03/20 20:44 07/04/20 21:07 Dextrose 1,000 ml @ 100 mls/hr Q10H IV 07/07/20 10:15 08/06/20 10:14 07/10/20 11:10 Dextrose (Dextrose 50%) 25 ml Q30M PRN IV Hypoglycemia 07/08/20 11:30 10/06/20 11:29 Dextrose (Dextrose 50%) 50 ml Q30M PRN IV Hypoglycemia 07/08/20 11:30 10/06/20 11:29 Enoxaparin Sodium (Lovenox) 60 mg EVERY 12 HOURS SUBQ 07/05/20 10:30 10/03/20 10:29 07/10/20 08:54 Famotidine (Pepcid I.v.) 40 mg DAILY IVP 07/08/20 09:00 08/01/20 20:59 07/10/20 08:53 Insulin Aspart (NovoLOG) BEFORE MEALS AND HS SUBQ 07/08/20 16:30 10/06/20 16:29 07/10/20 11:09 Methylprednisolone Sodium Succinate (Solu-MEDROL) 40 mg EVERY 12 HOURS IVP 07/04/20 12:45 10/02/20 12:44 07/10/20 08:53 Ondansetron HCl (Zofran) 4 mg Q6H PRN IVP Nausea & Vomiting 06/18/20 22:00 07/18/20 21:59 Swapna Falk MD Jul 10, 2020 11:15
--- NOTE | 2020-07-10 11:17 | Pulmonology Progress Note ---
Subjective ROS Limited/Unobtainable: Yes Interval Events: seen in SDU Constitutional: Denies: fever HEENT: Repors: no symptoms Respiratory: Reports: no symptoms Cardiovascular: Reports: no symptoms Gastrointestinal/Abdominal: Reports: no symptoms Allergies: Coded Allergies: No Known Allergies (Unverified , 06/18/20) Objective Last 24 Hour Vital Signs Date Time Temp Pulse Resp B/P (MAP) Pulse Ox O2 Delivery O2 Flow Rate FiO2 07/10/20 08:00 56 07/10/20 08:00 65 07/10/20 08:00 Bi-pap Bi-pap 07/10/20 08:00 97.5 58 20 103/67 (79) 95 07/10/20 04:00 Bi-pap Bi-pap 07/10/20 04:00 65 07/10/20 04:00 97.5 65 19 123/82 (96) 98 07/10/20 03:52 61 07/10/20 03:26 55 16 98 65 07/10/20 00:00 97.9 66 17 112/82 (92) 96 07/10/20 00:00 Bi-pap Bi-pap 07/09/20 23:42 78 07/09/20 23:30 90 24 95 65 07/09/20 20:00 65 07/09/20 20:00 Bi-pap Bi-pap 07/09/20 20:00 85 07/09/20 20:00 97.5 83 29 113/73 (86) 100 07/09/20 19:30 88 33 93 65 07/09/20 16:00 78 07/09/20 16:00 Bi-pap Bi-pap 07/09/20 16:00 97.7 79 23 135/70 (91) 100 07/09/20 16:00 65 07/09/20 15:15 86 20 93 65 07/09/20 12:00 70 07/09/20 12:00 84 07/09/20 12:00 Bi-pap Bi-pap 07/09/20 12:00 98.2 63 25 148/80 (102) 100 07/09/20 12:00 80 Intake and Output 07/09/20 07/10/20 19:00 07:00 Intake Total 100 ml 973 ml Balance 100 ml 973 ml IV Total 100 ml 973 ml # Voids 2 2 Objective seen in SDU, on BiPAP saturating at 98% with current setting General Appearance: no acute distress HEENT: normocephalic Respiratory: chest wall non-tender, lungs clear Cardiovascular: normal peripheral pulses Abdomen: normal bowel sounds Extremities: no cyanosis Laboratory Tests 07/09/20 11:42: POC Whole Blood Glucose 316H 07/09/20 16:01: POC Whole Blood Glucose 356H 07/09/20 16:02: POC Whole Blood Glucose 332H 07/09/20 21:16: POC Whole Blood Glucose 274H 07/10/20 06:11: POC Whole Blood Glucose 312H Current Medications Medications (Trade) Dose Ordered Sig/Yoselin Route PRN Reason Start Time Stop Time Status Last Admin Dose Admin Acetaminophen (Tylenol) 650 mg Q6H PRN ORAL Temp >100.5 07/03/20 16:30 08/02/20 16:29 Acetaminophen (Tylenol) 650 mg Q6H PRN ORAL For Pain 06/18/20 22:00 07/18/20 21:59 07/03/20 20:59 Acetaminophen (Tylenol) 650 mg Q6H PRN RECTAL Temp >100.5 07/04/20 20:45 08/03/20 20:44 07/04/20 21:07 Dextrose 1,000 ml @ 100 mls/hr Q10H IV 07/07/20 10:15 08/06/20 10:14 07/10/20 11:10 Dextrose (Dextrose 50%) 25 ml Q30M PRN IV Hypoglycemia 07/08/20 11:30 10/06/20 11:29 Dextrose (Dextrose 50%) 50 ml Q30M PRN IV Hypoglycemia 07/08/20 11:30 10/06/20 11:29 Enoxaparin Sodium (Lovenox) 60 mg EVERY 12 HOURS SUBQ 07/05/20 10:30 10/03/20 10:29 07/10/20 08:54 Famotidine (Pepcid I.v.) 40 mg DAILY IVP 07/08/20 09:00 08/01/20 20:59 07/10/20 08:53 Insulin Aspart (NovoLOG) BEFORE MEALS AND HS SUBQ 07/08/20 16:30 10/06/20 16:29 07/10/20 11:09 Methylprednisolone Sodium Succinate (Solu-MEDROL) 40 mg EVERY 12 HOURS IVP 07/04/20 12:45 10/02/20 12:44 07/10/20 08:53 Ondansetron HCl (Zofran) 4 mg Q6H PRN IVP Nausea & Vomiting 06/18/20 22:00 07/18/20 21:59 Assessment/Plan Assessment/Plan 1. COVID-19 pneumonia. - s/p decadron (06/22-06/28) - s/p broad-spectrum antibiotics - s/p remdesivir - CXR 06/26 better 2. Respiratory failure. - currently on BiPAP saturating at 98%; failed lowering FiO2 - will attempt weaning again; now requiring 65% FiO2 - will attempt course of steroids (solumedrol) 3. Pulmonary embolism. - s/p heparin - Back on Lovenox as he cannot tolerate PO meds 4. Troponin leak. - 2D echo showed LV EF 65% Attempted venti-mask.. unsuccessful Will attempt weaning again The care for this patient was discussed with my supervising physician Time spent for this case was approximately 31 minutes Jhonny Vences Jul 10, 2020 11:17
--- NOTE | 2020-07-10 11:24 | NUR ---
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
[2020-07-10 12:00] VITALS: BP 113/66
--- NOTE | 2020-07-10 12:30 | NUR ---
NURSE NOTES: Pt was offered Ensure for lunch, but pt refused it. Dietary called and suggested TPN since pt hasn't had any oral feedings for 21 days. Will follow up with the MD.
[2020-07-10] MEDS ORDERED: NS 275ml ONE (13:38)
--- NOTE | 2020-07-10 14:20 | NUR ---
NURSE NOTES: Pt refused meals. Pt hasn't had any oral diet for a few weeks. Manager Medicare suggested TPN. Dr. Reyes is informed. Awaiting call back. Will continue to monitor pt.
[2020-07-10] MEDS ORDERED: Heparin1,000 units/500ml Premix(Conc:2 units/ml) IV PRN (15:45)
[2020-07-10] MEDS ORDERED: Lidocaine 1% Plain 30 ml INJ PRN (15:45)
[2020-07-10 16:00] VITALS: BP 120/74
--- NOTE | 2020-07-10 16:30 | NUR ---
NURSE NOTES: FATOUMATA Vences ordered for PICC line placement. Consent signed by pt's . Pt will be started on TPN. Will continue with the plan of care.
--- NOTE | 2020-07-10 18:00 | NUR ---
NURSE NOTES: Sponge bath given, linens and gown changed, turned and repositioned. Doesn't tolerate, pt becomes short of breath with exertion. Desaturates to 805. Condom catheter leaks, replaced with urinary pouch. Will continue to closely monitor pt.
--- NOTE | 2020-07-10 19:16 | NUR ---
NURSE NOTES: Received report from TIMOTHY Del Rosario. Ptis A/O x3 and verbally responsive. No SOB or acute distress noted. Pt appears to be tolerating current BIPAP settings 22/6 fio2 at 65% saturation @ 95%. No pain noted. Pt has LW 22G running D5W @ 100cc. Safety measures in place, bed in lowest position with side rails x2 and locked. Bed alarmed activated. Pt has a urinary which is in place at this time. Pt is on bilateral wrist restraints which skin is intact and no pain or swelling noted which is used for safety measures of removing the bipap. Will continue plan of care.
--- NOTE | 2020-07-10 19:26 | NUR ---
NURSE HAND-OFF REPORT: Important Events on Shift:None Patient Status: Full code Diet: Full liquid diet Pending Orders: N Pending Results/Labs:N Pending MD notification:N Latest Vital Signs: Temperature 97.9 , Pulse 62 , B/P 120 /74 , Respiratory Rate 20 , O2 SAT 95 , Bi-pap, O2 Flow Rate 40.0 . Vital Sign Comment: stable EKG Rhythm: Sinus Rhythm Rhythm change?: N MD Notified?: N - MD Response: Latest Mcdowell Fall Score: 60 Fall Risk: High Risk Safety Measures: Call light Within Reach, Bed Alarm Zone 2, Side Rails Side Rails x3, Bed position Low and Locked. Fall Precautions: Door Sign Report given to will Brody RN.
[2020-07-10 20:00] VITALS: BP 109/75
[2020-07-10] MEDS: Dyna-Hex 2% Top Sol 2oz TOPIC SCH (20:00)
[2020-07-11] VITALS: BP 109/57
[2020-07-11 04:00] VITALS: BP 108/59
[2020-07-11 05:15] LABS: HEMATOCRIT 37.2 % (42.0-52.0); HEMOGLOBIN 12.6 G/DL (14.2-18.0); MEAN CORPUSCULAR VOLUME 89 FL (80-99); PLATELET COUNT 159 K/UL (150-450); RED BLOOD COUNT 4.17 M/UL (4.70-6.10); RED CELL DISTRIBUTION WIDTH 12.2 % (11.6-14.8); WHITE BLOOD COUNT 9.6 K/UL (4.8-10.8)
[2020-07-11] MEDS: NovoLOG Insulin Flexpen SUBQ SCH ×4 (05:41→20:22)
[2020-07-11 06:22] LABS: ALANINE AMINOTRANSFERASE 156 U/L (12-78); ALBUMIN/GLOBULIN RATIO 0.5 (1.0-2.7); ALKALINE PHOSPHATASE 117 U/L (46-116); ANION GAP 9 mmol/L (5-15); ASPARTATE AMINO TRANSFERASE 69 U/L (15-37); BILIRUBIN,TOTAL 0.9 MG/DL (0.2-1.0); BLOOD UREA NITROGEN 33 mg/dL (7-18); CALCIUM 8.4 MG/DL (8.5-10.1); CARBON DIOXIDE 25 MMOL/L (21-32); CHLORIDE 110 MMOL/L (98-107); POTASSIUM 3.6 MMOL/L (3.5-5.1); SODIUM 144 MMOL/L (136-145)
--- NOTE | 2020-07-11 07:10 | NUR ---
NURSE HAND-OFF REPORT: Important Events on Shift: Bipap Patient Status: Stable Diet: NPO Pending Orders: Pending Results/Labs: Pending MD notification: Latest Vital Signs: Temperature 97.7 , Pulse 67 , B/P 108 /59 , Respiratory Rate 22 , O2 SAT 96 , Bi-pap, O2 Flow Rate 40.0 . Vital Sign Comment: EKG Rhythm: Sinus Rhythm Rhythm change?: N MD Notified?: N - MD Response: Latest Mcdowell Fall Score: 60 Fall Risk: High Risk Safety Measures: Call light Within Reach, Bed Alarm Zone 2, Side Rails Side Rails x3, Bed position Low and Locked. Fall Precautions: Door Sign Report given to
[2020-07-11 08:00] VITALS: BP 114/62
--- NOTE | 2020-07-11 08:00 | NUR ---
NURSE NOTES: Pt asleep in bed, breathing comfortably on BIPAP, and no evidence of pain at this time. Vital signs stable with SR @ 63 on monitor. IV access LW with D5 @ 100 ml/hr. Bilat soft wrist restraints due to pt continually pulling off bipap mask. Good motor/neuro/cap distal functions in both hands. Bed left in low position, side rails up x 2 and call light left near pt's hand.
--- NOTE | 2020-07-11 08:46 | NUR ---
RD ASSESSMENT & RECOMMENDATIONS SEE CARE ACTIVITY FOR COMPLETE ASSESSMENT DAILY ESTIMATED NEEDS: Needs based on pulmonary 62kg 25-30 kcals/kg 4950-0808 total kcals 1.25-1.5 g protein/kg 77-93 g total protein 25-30 mL/kg 1481-8674 total fluid mLs NUTRITION DIAGNOSIS: Predicted poor po intake r/t respiratory status/ bipap use as evidenced by pt is covid ++, on bipap, desats when off device, diet now advanced from clear liquid diet to full liquid w/ prolonged poor PO/ meal refusals. CURRENT DIET: Full liquid PO DIET RECOMMENDATIONS: rec SLATE MIXER eval for diet texture-> Regular diet ENTERAL NUTRITION RECOMMENDATIONS: Consult RD for non-oral TF recs if part of POC and appropriate w/ BIPAP PARENTERAL NUTRITION RECOMMENDATIONS: D/AA Rate: 72 IL Rate: 8 Total Rate: 80 Volume: 1920 % Dextrose: 14 % AA: 5.0 Energy (kcals/kg): 1552 Protein (g/kg protein): 86 Nonprotein KCALS: 1207 GIR (mg CHO/kg/min): 2.7 % Fat KCALS: 24.7 NPC: N Ratio: 88:1 TPN Comment: REC TPN IF NGT FEEDS NOT APPROPRIATE DUE TO BIPAP USAGE -> PT W/ MINIMAL INTAKE/REFUSAL X 23 DAYS, UNABLE TO TOLERATE ORAL DIET, DESATS QUICKLY WHEN OFF BIPAP -> D14% AA 5.0% @ 72ml/hr + 20% IL @ 8ml/hr: total of 80ml/hr, all 3:1 -> Start TPN at LOW RATE of 20ml/hr x 6hrs, advance slowly as ky to goal PT AT HIGH RISK FOR REFEEDING SYNDROME, monitor lytes daily -> W/ TPN, rec adding long acting insulin (FBGs 200s-500s) ADDITIONAL RECOMMENDATIONS: 1) PT w/ prolonged poor PO/refusals: DAY 23 -> Rec TPN if NGT feeds not appropriate w/ BIPAP, rec as above 2) Check HgA1C ----> 7.2 3) Monitor BGs closely w/ Solumedrol: BGs 200's-500's prior to TPN -> REC LONG ACTING INSULIN W/ TPN 4) Monitor LFTs closely w/ TPN: already elev prior to TPN 5) Monitor lytes daily, replete as needed: high risk for refeeding w/ TPN
[2020-07-11] MEDS: Solu-MEDROL 40mg Inj IVP SCH (09:23)
[2020-07-11] MEDS: Enoxaparin 60mg Inj SUBQ SCH ×2 (09:24→20:22)
[2020-07-11 12:00] VITALS: BP 110/69
--- NOTE | 2020-07-11 12:04 | Consultation ---
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 HEAD AND NECK: Hartrandt conjunctivae. HEART: Normal rate. LUNGS: On BiPAP ABDOMEN: Soft. EXTREMITIES: No edema. LABORATORY AND DIAGNOSTIC DATA: WBC today is 8.1, hemoglobin 12.8, hematocrit 36.9, and platelets 153,000. Sodium 138, potassium 3.7, chloride 107, bicarb 25, BUN 14, creatinine 0.7. Glucose 138. Lactic acid was 13.2 at the time of admission, subsequently decreased to 3.4. Troponin is elevated, peak level is 1.466. Blood gas showed pH of 7.507, pCO2 of 29.7, pO2 of 63.5, O2 saturation 92.9. CT angiogram of chest showed multifocal ground-glass opacities consistent with COVID. A small pulmonary emboli in the subsegmental branch of right lower lobe, right heart enlargement and flattening of the intraventricular septum. Cannot exclude right heart strain or baseline right heart failure. . Assessment/Plan 1) Pneumonia due to COVID-19 virus (2) Malnutrition (3) Hypoxia (4) Pulmonary embolus TPN ordered Discussed with pharmacy Waiting placement of a central line Continue per orders Jimmy Saul MD Jul 11, 2020 12:04
[2020-07-11] MEDS ORDERED: Dextrose 10% 1,000 ML IV PRN (12:15)
--- NOTE | 2020-07-11 14:14 | Infectious Diseases Prog Note ---
Assessment/Plan Assessment/Plan IMPRESSION: 1. leukocytosis. 2. COVID-19 pneumonia. 3. Pulmonary emboli. 4. Hypoxic respiratory failure, 5. Elevated troponin. RECOMMENDATION: Finished Remdesivir course Continue Solumedrol Subjective ROS Limited/Unobtainable: Yes Psychiatric: Reports: other - on restraint Allergies: Coded Allergies: No Known Allergies (Unverified , 06/18/20) Objective Last 24 Hour Vital Signs Date Time Temp Pulse Resp B/P (MAP) Pulse Ox O2 Delivery O2 Flow Rate FiO2 07/11/20 08:00 Bi-pap Bi-pap 07/11/20 08:00 65 07/11/20 08:00 74 07/11/20 08:00 98.2 63 26 114/62 (79) 95 07/11/20 04:00 Bi-pap Bi-pap 07/11/20 04:00 97.7 65 22 108/59 (75) 96 07/11/20 04:00 67 07/11/20 04:00 65 07/11/20 01:00 63 28 97 65 07/11/20 00:00 65 07/11/20 00:00 66 07/11/20 00:00 98.5 64 17 109/57 (74) 96 07/11/20 00:00 Bi-pap Bi-pap 07/10/20 20:00 65 07/10/20 20:00 Bi-pap Bi-pap 07/10/20 20:00 70 07/10/20 20:00 98.5 67 22 109/75 (86) 94 07/10/20 19:00 66 28 91 65 07/10/20 16:00 Bi-pap Bi-pap 07/10/20 16:00 97.9 65 20 120/74 (89) 95 07/10/20 16:00 65 07/10/20 16:00 62 07/10/20 15:07 61 16 96 65 Height (Feet): 5 Height (Inches): 4.00 Weight (Pounds): 146 HEENT: mucous membranes moist Respiratory/Chest: other - on BIPAP, FIO2=65% Cardiovascular: normal rate Abdomen: soft, non tender Extremities: no edema Neurologic/Psychiatric: other - sleeping Laboratory Tests Test 07/10/20 15:38 07/10/20 21:01 07/11/20 04:00 07/11/20 05:28 POC Whole Blood Glucose 194 MG/DL (74-106) H 228 MG/DL (74-106) H 185 MG/DL (74-106) H White Blood Count 9.6 K/UL (4.8-10.8) Red Blood Count 4.17 M/UL (4.70-6.10) L Hemoglobin 12.6 G/DL (14.2-18.0) L Hematocrit 37.2 % (42.0-52.0) L Mean Corpuscular Volume 89 FL (80-99) Mean Corpuscular Hemoglobin 30.3 PG (27.0-31.0) Mean Corpuscular Hemoglobin Concent 34.0 G/DL (32.0-36.0) Red Cell Distribution Width 12.2 % (11.6-14.8) Platelet Count 159 K/UL (150-450) Mean Platelet Volume 9.0 FL (6.5-10.1) Neutrophils (%) (Auto) % (45.0-75.0) Lymphocytes (%) (Auto) % (20.0-45.0) Monocytes (%) (Auto) % (1.0-10.0) Eosinophils (%) (Auto) % (0.0-3.0) Basophils (%) (Auto) % (0.0-2.0) Differential Total Cells Counted 100 Neutrophils % (Manual) 96 % (45-75) H Lymphocytes % (Manual) 2 % (20-45) L Monocytes % (Manual) 2 % (1-10) Eosinophils % (Manual) 0 % (0-3) Basophils % (Manual) 0 % (0-2) Band Neutrophils 0 % (0-8) Platelet Estimate Adequate Platelet Morphology Normal Red Blood Cell Morphology Normal Sodium Level 144 MMOL/L (136-145) Potassium Level 3.6 MMOL/L (3.5-5.1) Chloride Level 110 MMOL/L (98-107) H Carbon Dioxide Level 25 MMOL/L (21-32) Anion Gap 9 mmol/L (5-15) Blood Urea Nitrogen 33 mg/dL (7-18) H Creatinine 1.0 MG/DL (0.55-1.30) Estimat Glomerular Filtration Rate > 60 mL/min (>60) Glucose Level 223 MG/DL (74-106) H Calcium Level 8.4 MG/DL (8.5-10.1) L Total Bilirubin 0.9 MG/DL (0.2-1.0) Aspartate Amino Transf (AST/SGOT) 69 U/L (15-37) H Alanine Aminotransferase (ALT/SGPT) 156 U/L (12-78) H Alkaline Phosphatase 117 U/L (46-116) H Total Protein 5.9 G/DL (6.4-8.2) L Albumin 2.0 G/DL (3.4-5.0) L Globulin 3.9 g/dL Albumin/Globulin Ratio 0.5 (1.0-2.7) L Current Medications Medications (Trade) Dose Ordered Sig/Yoselin Route PRN Reason Start Time Stop Time Status Last Admin Dose Admin Acetaminophen (Tylenol) 650 mg Q6H PRN ORAL Temp >100.5 07/03/20 16:30 08/02/20 16:29 Acetaminophen (Tylenol) 650 mg Q6H PRN ORAL For Pain 06/18/20 22:00 07/18/20 21:59 07/03/20 20:59 Acetaminophen (Tylenol) 650 mg Q6H PRN RECTAL Temp >100.5 07/04/20 20:45 08/03/20 20:44 07/04/20 21:07 Chlorhexidine Gluconate (Kalie-Hex 2%) 1 applic DAILY@2000 TOPIC 07/10/20 20:00 10/08/20 19:59 Dextrose 1,000 ml @ 0 mls/hr Q24H PRN IV PN interrupted or unavailable 07/11/20 12:15 08/10/20 12:14 Dextrose 1,000 ml @ 100 mls/hr Q10H IV 07/07/20 10:15 08/06/20 10:14 07/11/20 08:05 Dextrose (Dextrose 50%) 25 ml Q30M PRN IV Hypoglycemia 07/11/20 12:15 10/09/20 12:14 Dextrose (Dextrose 50%) 50 ml Q30M PRN IV Hypoglycemia 07/11/20 12:15 10/09/20 12:14 Enoxaparin Sodium (Lovenox) 60 mg EVERY 12 HOURS SUBQ 07/05/20 10:30 10/03/20 10:29 07/11/20 09:24 Famotidine (Pepcid I.v.) 40 mg DAILY IVP 07/08/20 09:00 08/01/20 20:59 07/11/20 09:23 Fat Emulsion Intravenous 192 ml/Amino Acids/ Electrolytes/ Dextrose 1,920 ml @ 80 mls/hr Q24H IV 07/13/20 20:00 08/12/20 19:59 Heparin Sodium/ Sodium Chloride (Heparin 1000 units/500ml Premix) 1,000 unit ONCE PRN IV picc line placement 07/10/20 15:45 07/12/20 15:44 Insulin Aspart (NovoLOG) BEFORE MEALS AND HS SUBQ 07/08/20 16:30 10/06/20 16:29 07/11/20 05:41 Lidocaine HCl (Xylocaine 1% 30ml) 30 ml ONCE PRN INJ picc line placement 07/10/20 15:45 07/12/20 15:44 Methylprednisolone Sodium Succinate (Solu-MEDROL) 40 mg DAILY IVP 07/11/20 09:00 10/09/20 08:59 07/11/20 09:23 Ondansetron HCl (Zofran) 4 mg Q6H PRN IVP Nausea & Vomiting 06/18/20 22:00 07/18/20 21:59 Arturo Dudley MD Jul 11, 2020 14:14
--- NOTE | 2020-07-11 14:57 | Pulmonology Progress Note ---
Subjective ROS Limited/Unobtainable: Yes Interval Events: seen in SDU Constitutional: Denies: fever HEENT: Repors: no symptoms Respiratory: Reports: no symptoms Cardiovascular: Reports: no symptoms Gastrointestinal/Abdominal: Reports: no symptoms Psychiatric: Reports: other - on restraint Allergies: Coded Allergies: No Known Allergies (Unverified , 06/18/20) Objective Last 24 Hour Vital Signs Date Time Temp Pulse Resp B/P (MAP) Pulse Ox O2 Delivery O2 Flow Rate FiO2 07/11/20 12:00 68 07/11/20 12:00 65 07/11/20 12:00 98.2 65 31 110/69 (83) 96 07/11/20 12:00 Bi-pap Bi-pap 07/11/20 08:00 Bi-pap Bi-pap 07/11/20 08:00 65 07/11/20 08:00 74 07/11/20 08:00 98.2 63 26 114/62 (79) 95 07/11/20 04:00 Bi-pap Bi-pap 07/11/20 04:00 97.7 65 22 108/59 (75) 96 07/11/20 04:00 67 07/11/20 04:00 65 07/11/20 01:00 63 28 97 65 07/11/20 00:00 65 07/11/20 00:00 66 07/11/20 00:00 98.5 64 17 109/57 (74) 96 07/11/20 00:00 Bi-pap Bi-pap 07/10/20 20:00 65 07/10/20 20:00 Bi-pap Bi-pap 07/10/20 20:00 70 07/10/20 20:00 98.5 67 22 109/75 (86) 94 07/10/20 19:00 66 28 91 65 07/10/20 16:00 Bi-pap Bi-pap 07/10/20 16:00 97.9 65 20 120/74 (89) 95 07/10/20 16:00 65 07/10/20 16:00 62 07/10/20 15:07 61 16 96 65 Intake and Output 07/10/20 07/11/20 19:00 07:00 Intake Total 1100 ml Output Total 300 ml Balance 800 ml IV Total 1100 ml Output Urine Total 300 ml # Voids 2 General Appearance: no acute distress HEENT: normocephalic Respiratory: chest wall non-tender, lungs clear Cardiovascular: normal peripheral pulses Abdomen: normal bowel sounds Extremities: no cyanosis Laboratory Tests 07/10/20 15:38: POC Whole Blood Glucose 194H 07/10/20 21:01: POC Whole Blood Glucose 228H 07/11/20 04:00: White Blood Count 9.6, Red Blood Count 4.17L, Hemoglobin 12.6L, Hematocrit 37.2L , Mean Corpuscular Volume 89, Mean Corpuscular Hemoglobin 30.3, Mean Corpuscular Hemoglobin Concent 34.0, Red Cell Distribution Width 12.2, Platelet Count 159, Mean Platelet Volume 9.0, Neutrophils (%) (Auto) , Lymphocytes (%) (Auto) , Monocytes (%) (Auto) , Eosinophils (%) (Auto) , Basophils (%) (Auto) , Differential Total Cells Counted 100, Neutrophils % (Manual) 96H, Lymphocytes % (Manual) 2L, Monocytes % (Manual) 2, Eosinophils % (Manual) 0, Basophils % (Manual) 0, Band Neutrophils 0, Platelet Estimate Adequate, Platelet Morphology Normal, Red Blood Cell Morphology Normal, Sodium Level 144, Potassium Level 3.6, Chloride Level 110H, Carbon Dioxide Level 25, Anion Gap 9, Blood Urea Nitrogen 33H, Creatinine 1.0, Estimat Glomerular Filtration Rate > 60, Glucose Level 223H , Calcium Level 8.4L, Total Bilirubin 0.9, Aspartate Amino Transf (AST/SGOT) 69H , Alanine Aminotransferase (ALT/SGPT) 156H, Alkaline Phosphatase 117H, Total Protein 5.9L, Albumin 2.0L, Globulin 3.9, Albumin/Globulin Ratio 0.5L 07/11/20 05:28: POC Whole Blood Glucose 185H Current Medications Medications (Trade) Dose Ordered Sig/Yoselin Route PRN Reason Start Time Stop Time Status Last Admin Dose Admin Acetaminophen (Tylenol) 650 mg Q6H PRN ORAL Temp >100.5 07/03/20 16:30 08/02/20 16:29 Acetaminophen (Tylenol) 650 mg Q6H PRN ORAL For Pain 06/18/20 22:00 07/18/20 21:59 07/03/20 20:59 Acetaminophen (Tylenol) 650 mg Q6H PRN RECTAL Temp >100.5 07/04/20 20:45 08/03/20 20:44 07/04/20 21:07 Chlorhexidine Gluconate (Kalie-Hex 2%) 1 applic DAILY@2000 TOPIC 07/10/20 20:00 10/08/20 19:59 Dextrose 1,000 ml @ 0 mls/hr Q24H PRN IV PN interrupted or unavailable 07/11/20 12:15 08/10/20 12:14 Dextrose 1,000 ml @ 100 mls/hr Q10H IV 07/07/20 10:15 08/06/20 10:14 07/11/20 08:05 Dextrose (Dextrose 50%) 25 ml Q30M PRN IV Hypoglycemia 07/11/20 12:15 10/09/20 12:14 Dextrose (Dextrose 50%) 50 ml Q30M PRN IV Hypoglycemia 07/11/20 12:15 10/09/20 12:14 Enoxaparin Sodium (Lovenox) 60 mg EVERY 12 HOURS SUBQ 07/05/20 10:30 10/03/20 10:29 07/11/20 09:24 Famotidine (Pepcid I.v.) 40 mg DAILY IVP 07/08/20 09:00 08/01/20 20:59 07/11/20 09:23 Fat Emulsion Intravenous 192 ml/Amino Acids/ Electrolytes/ Dextrose 1,920 ml @ 80 mls/hr Q24H IV 07/13/20 20:00 08/12/20 19:59 Heparin Sodium/ Sodium Chloride (Heparin 1000 units/500ml Premix) 1,000 unit ONCE PRN IV picc line placement 07/10/20 15:45 07/12/20 15:44 Insulin Aspart (NovoLOG) BEFORE MEALS AND HS SUBQ 07/08/20 16:30 10/06/20 16:29 07/11/20 05:41 Lidocaine HCl (Xylocaine 1% 30ml) 30 ml ONCE PRN INJ picc line placement 07/10/20 15:45 07/12/20 15:44 Methylprednisolone Sodium Succinate (Solu-MEDROL) 40 mg DAILY IVP 07/11/20 09:00 10/09/20 08:59 07/11/20 09:23 Ondansetron HCl (Zofran) 4 mg Q6H PRN IVP Nausea & Vomiting 06/18/20 22:00 07/18/20 21:59 Assessment/Plan Assessment/Plan 1. COVID-19 pneumonia. - s/p decadron (06/22-06/28) - s/p broad-spectrum antibiotics - s/p remdesivir - CXR 06/26 better 2. Respiratory failure. - currently on BiPAP saturating at 93% on 75% FiO2; did not tolerate 65% FiO2 yesterday - will attempt weaning again - will attempt course of steroids (solumedrol) 3. Pulmonary embolism. - s/p heparin - Back on Lovenox as he cannot tolerate PO meds 4. Troponin leak. - 2D echo showed LV EF 65% 5. Malnutrition - TPN scheduled for Monday - PICC line Monday 6. Leukocytosis - now resolved Attempted venti-mask.. unsuccessful Will attempt weaning again The care for this patient was discussed with my supervising physician Time spent for this case was approximately 31 minutes Jhonny Vences Jul 11, 2020 14:57
[2020-07-11 16:00] VITALS: BP 111/67
--- NOTE | 2020-07-11 19:27 | NUR ---
NURSE NOTES: Received report from TIMOTHY Perdomo. Pt is A/O x3 and verbally responsive in [place]ian. No SOB or acute distress noted. Pt appears to be tolerating current BIPAP settings 22/6 fio2 at 65% saturation @ 95%. No pain noted. Pt has LW 22G running D5 @ 100cc. Safety measures in place, bed in lowest position with side rails x2 and locked. Bed alarmed activated. Pt is on bilateral wrist restraints which skin is intact and no pain or swelling noted which is used for safety measures of removing the bipap. Will continue plan of care.
[2020-07-11 20:00] VITALS: BP 110/71
[2020-07-11] MEDS: Dyna-Hex 2% Top Sol 2oz TOPIC SCH (20:00)
--- NOTE | 2020-07-11 20:23 | NUR ---
NURSE NOTES: Dynahex ordered yet pt does have a central line yet. PICC line pending for Monday. Non administered on EMAR.
[2020-07-11] MEDS ORDERED: Tpn 2,000 ML IV SCH (21:00)
--- NOTE | 2020-07-11 21:20 | NUR ---
NURSE NOTES: Contacted Dr. Leung regarding pt pulse being in the 150-160's and new order given of 1 liter bolus of NS and contact him if the pulse persists.
[2020-07-11] MEDS ORDERED: dilTIAZem HCl 50mg/10ml Inj IVP SCH (22:30)
--- NOTE | 2020-07-11 22:30 | NUR ---
NURSE NOTES: After bolus of NS given pulse continued in the 150-160's and new order from Dr. Leung of cardizem 10mg slow IVP to be given. Carried out.
[2020-07-12] VITALS (32 sets, daily range): BP systolic 94–148; BP diastolic 60–81
--- NOTE | 2020-07-12 | NUR ---
NURSE NOTES: Contacted Dr. Leung regarding pt pulse being Afib uncontrolled and was told to transfer to ICU for cardizem drip. Order carried out and charge nurse informed.
--- NOTE | 2020-07-12 00:12 | NUR ---
RESPIRATORY NOTES: Pt transferred to 237. pt is on bipap settings / 65%. pt satting 90-98 on full face mask. pt tachy breathing noted, Rn aware. bipap plugged into red outlet. will continue to monitor pt.
[2020-07-12] MEDS ORDERED: dilTIAZem Premix 125mg/125ml 125 ML IVPB SCH (01:00)
--- NOTE | 2020-07-12 01:37 | Diagnostic Imaging Report ---
EXAM: XR Chest, 1 View CLINICAL HISTORY: TACHYPNEA TECHNIQUE: Frontal view of the chest. COMPARISON: Chest x-ray 07/01/2020, chest x-ray 07/07/2020 FINDINGS: Lungs: Mild hazy opacities are visualized in the left greater than right lung. Pleural space: Unremarkable. No pneumothorax. Heart: Unremarkable. No cardiomegaly. Mediastinum: Unremarkable. Bones/joints: Unremarkable. IMPRESSION: Again seen are mild interstitial and airspace opacities in the left greater than right lungs similar to that seen on 07/01/2020. Giving the waxing and waning presence of these opacities, pulmonary edema is favored over pneumonia.
--- NOTE | 2020-07-12 04:18 | NUR ---
NURSE NOTES: Nurse unable to take a picture of the DTI on the bridge of nose of the pt. Pt is unstable to remove mask and remove dressing without desaturation of pt. Charge nurse aware and agreed.
[2020-07-12] MEDS: dilTIAZem Premix 125mg/125ml 125 ML IVPB SCH ×3 (05:10→22:18)
[2020-07-12] MEDS: NovoLOG Insulin Flexpen SUBQ SCH ×4 (05:22→21:36)
--- NOTE | 2020-07-12 06:00 | NUR ---
NURSE NOTES: Pt cleaned and all linens changed. Pt tolerated but did desaturate and came back to stable saturation once finished.
--- NOTE | 2020-07-12 06:49 | NUR ---
NURSE HAND-OFF REPORT: Important Events on Shift: Cardizem Drip 10mg/hr Patient Status: Guarded Diet: NPO Pending Orders: Pending Results/Labs: Pending MD notification: Latest Vital Signs: Temperature 97.9 , Pulse 109 , B/P 135 /74 , Respiratory Rate 26 , O2 SAT 90 , Bi-pap, O2 Flow Rate 40.0 . Vital Sign Comment: EKG Rhythm: A Fib/Aflutter Rhythm change?: N MD Notified?: Y -Dr Leung covering for Dr. Kailee MAY Response: Latest Mcdowell Fall Score: 50 Fall Risk: High Risk Safety Measures: Call light Within Reach, Bed Alarm Zone 2, Side Rails Side Rails x3, Bed position Low and Locked. Fall Precautions: Door Sign Report given to Mary Grace.
--- NOTE | 2020-07-12 07:00 | NUR ---
NURSE NOTES: received patient report from radha walter. patient is on bed asleep. not in acute distress. on bipap at prescribed rate, on b soft wrist restraints fro safety. will follow plan of care.
[2020-07-12 07:29] LABS: HEMATOCRIT 37.8 % (42.0-52.0); HEMOGLOBIN 12.3 G/DL (14.2-18.0); MEAN CORPUSCULAR VOLUME 92 FL (80-99); PLATELET COUNT 167 K/UL (150-450); RED BLOOD COUNT 4.09 M/UL (4.70-6.10); RED CELL DISTRIBUTION WIDTH 12.4 % (11.6-14.8); WHITE BLOOD COUNT 9.1 K/UL (4.8-10.8)
[2020-07-12 08:10] LABS: ALANINE AMINOTRANSFERASE 153 U/L (12-78); ALBUMIN 1.9 G/DL (3.4-5.0); ALBUMIN/GLOBULIN RATIO 0.5 (1.0-2.7); ALKALINE PHOSPHATASE 128 U/L (46-116); ANION GAP 8 mmol/L (5-15); ASPARTATE AMINO TRANSFERASE 42 U/L (15-37); BILIRUBIN,TOTAL 0.6 MG/DL (0.2-1.0); BLOOD UREA NITROGEN 22 mg/dL (7-18); CALCIUM 7.6 MG/DL (8.5-10.1); CARBON DIOXIDE 26 MMOL/L (21-32); CHLORIDE 109 MMOL/L (98-107); CHOLESTEROL 206 MG/DL (< 200); CREATININE 0.8 MG/DL (0.55-1.30); GAMMA GLUTAMYL TRANSPEPTIDASE 169 U/L (5-85); HDL CHOLESTEROL 28 MG/DL (40-60); PHOSPHORUS 2.4 MG/DL (2.5-4.9); POTASSIUM 3.4 MMOL/L (3.5-5.1); SODIUM 142 MMOL/L (136-145); TRIGLYCERIDES 191 MG/DL (30-150)
[2020-07-12] MEDS: Solu-MEDROL 40mg Inj IVP SCH (08:16)
[2020-07-12] MEDS: Enoxaparin 60mg Inj SUBQ SCH ×2 (08:18→20:39)
--- NOTE | 2020-07-12 10:25 | Pulmonology Progress Note ---
Subjective ROS Limited/Unobtainable: Yes Interval Events: seen in SDU Constitutional: Denies: fever HEENT: Repors: no symptoms Respiratory: Reports: no symptoms Cardiovascular: Reports: no symptoms Gastrointestinal/Abdominal: Reports: no symptoms Allergies: Coded Allergies: No Known Allergies (Unverified , 06/18/20) Objective Last 24 Hour Vital Signs Date Time Temp Pulse Resp B/P (MAP) Pulse Ox O2 Delivery O2 Flow Rate FiO2 07/12/20 10:00 99 31 132/79 (96) 99 07/12/20 09:00 98 25 111/70 (84) 97 07/12/20 08:00 Bi-pap Bi-pap 07/12/20 08:00 100 07/12/20 08:00 99 07/12/20 08:00 98.6 98 27 127/78 (94) 99 07/12/20 07:48 113 38 95 100 07/12/20 07:30 98 29 121/67 (85) 97 07/12/20 07:00 98 27 119/65 (83) 100 07/12/20 06:25 97.9 109 26 135/74 (94) 90 07/12/20 05:56 97.8 108 25 108/60 (76) 91 07/12/20 05:31 97.9 116 28 111/74 (86) 90 07/12/20 05:00 97.7 115 25 119/61 (80) 91 07/12/20 04:32 97.8 126 24 128/71 (90) 92 07/12/20 04:00 89 07/12/20 04:00 97.8 110 26 125/72 (89) 95 07/12/20 04:00 100 07/12/20 04:00 Bi-pap Bi-pap 07/12/20 03:32 97.6 124 24 134/69 (90) 90 07/12/20 03:22 110 30 97 100 07/12/20 03:00 97.7 126 26 136/74 (94) 90 07/12/20 02:41 97.7 152 26 122/65 (84) 90 07/12/20 02:10 97.6 149 26 126/68 (87) 90 07/12/20 01:48 97.6 147 24 130/72 (91) 91 07/12/20 01:39 97.7 159 28 121/67 (85) 89 07/12/20 01:15 97.7 165 30 120/69 (86) 90 07/12/20 00:00 97.8 162 30 110/64 (79) 90 07/12/20 00:00 165 07/12/20 00:00 75 07/12/20 00:00 Bi-pap Bi-pap 07/12/20 00:00 97.8 60 28 94/72 (79) 90 07/11/20 22:56 176 94/72 07/11/20 22:56 45 31 98 65 07/11/20 20:00 75 07/11/20 20:00 97.8 60 24 110/71 (84) 96 07/11/20 20:00 Bi-pap Bi-pap 07/11/20 20:00 77 07/11/20 19:15 71 45 98 65 07/11/20 16:13 75 07/11/20 16:11 Bi-pap Bi-pap 07/11/20 16:00 97.7 64 30 111/67 (82) 95 07/11/20 16:00 63 07/11/20 15:05 74 34 96 65 07/11/20 12:00 68 07/11/20 12:00 65 07/11/20 12:00 98.2 65 31 110/69 (83) 96 07/11/20 12:00 Bi-pap Bi-pap 07/11/20 10:45 71 27 90 75 Intake and Output 07/11/20 07/12/20 19:00 07:00 Intake Total 35 ml Balance 35 ml IV Total 35 ml # Voids 2 2 # Bowel Movements 2 General Appearance: no acute distress HEENT: normocephalic Respiratory: chest wall non-tender, lungs clear Cardiovascular: normal peripheral pulses Abdomen: normal bowel sounds Extremities: no cyanosis Laboratory Tests 07/11/20 16:29: POC Whole Blood Glucose 284H 07/11/20 20:16: POC Whole Blood Glucose 177H 07/12/20 00:31: Arterial Blood pH 7.483H, Arterial Blood Partial Pressure CO2 34.4L, Arterial Blood Partial Pressure O2 57.4L, Arterial Blood HCO3 25.2, Arterial Blood Oxygen Saturation 90.1L, Arterial Blood Base Excess 2.1H, Roshan Test Positive 07/12/20 04:33: White Blood Count 9.1, Red Blood Count 4.09L, Hemoglobin 12.3L, Hematocrit 37.8L , Mean Corpuscular Volume 92, Mean Corpuscular Hemoglobin 30.0, Mean Corpuscular Hemoglobin Concent 32.5, Red Cell Distribution Width 12.4, Platelet Count 167, Mean Platelet Volume 7.7, Neutrophils (%) (Auto) , Lymphocytes (%) (Auto) , Monocytes (%) (Auto) , Eosinophils (%) (Auto) , Basophils (%) (Auto) , Differential Total Cells Counted 100, Neutrophils % (Manual) 89H, Lymphocytes % (Manual) 5L, Monocytes % (Manual) 5, Eosinophils % (Manual) 1, Basophils % (Manual) 0, Band Neutrophils 0, Platelet Estimate Adequate, Platelet Morphology Normal, Red Blood Cell Morphology Normal, Sodium Level 142, Potassium Level 3.4L , Chloride Level 109H, Carbon Dioxide Level 26, Anion Gap 8, Blood Urea Nitrogen 22H, Creatinine 0.8, Estimat Glomerular Filtration Rate > 60, Glucose Level 164H , Uric Acid 4.0, Calcium Level 7.6L, Phosphorus Level 2.4L, Magnesium Level 2.1, Total Bilirubin 0.6, Gamma Glutamyl Transpeptidase 169H, Aspartate Amino Transf (AST/SGOT) 42H, Alanine Aminotransferase (ALT/SGPT) 153H, Alkaline Phosphatase 128H, Lactate Dehydrogenase 481H, Troponin I 0.023, C-Reactive Protein, Quantitative 4.3H, Pro-B-Type Natriuretic Peptide 1924H, Total Protein 5.6L, Albumin 1.9L, Globulin 3.7, Albumin/Globulin Ratio 0.5L, Triglycerides Level 191H, Cholesterol Level 206H, LDL Cholesterol 151H, HDL Cholesterol 28L, Cholesterol/HDL Ratio 7.4H, Lipase 407H, Vitamin B12 Level 1692H, Vitamin D 25- Hydroxy [Pending], 25-Hydroxy Vitamin D2 [Pending], 25-Hydroxy Vitamin D3 [Pending], Folate 4.2L, Thyroid Stimulating Hormone (TSH) 1.571 07/12/20 05:14: POC Whole Blood Glucose 177H Current Medications Medications (Trade) Dose Ordered Sig/Yoselin Route PRN Reason Start Time Stop Time Status Last Admin Dose Admin Acetaminophen (Tylenol) 650 mg Q6H PRN ORAL Temp >100.5 07/03/20 16:30 08/02/20 16:29 Acetaminophen (Tylenol) 650 mg Q6H PRN ORAL For Pain 06/18/20 22:00 07/18/20 21:59 07/03/20 20:59 Acetaminophen (Tylenol) 650 mg Q6H PRN RECTAL Temp >100.5 07/04/20 20:45 08/03/20 20:44 07/04/20 21:07 Chlorhexidine Gluconate (Kalie-Hex 2%) 1 applic DAILY@2000 TOPIC 07/10/20 20:00 10/08/20 19:59 Dextrose 1,000 ml @ 0 mls/hr Q24H PRN IV PN interrupted or unavailable 07/11/20 12:15 08/10/20 12:14 Dextrose 1,000 ml @ 100 mls/hr Q10H IV 07/07/20 10:15 08/06/20 10:14 07/12/20 03:48 Dextrose (Dextrose 50%) 25 ml Q30M PRN IV Hypoglycemia 07/11/20 12:15 10/09/20 12:14 Dextrose (Dextrose 50%) 50 ml Q30M PRN IV Hypoglycemia 07/11/20 12:15 10/09/20 12:14 Diltiazem HCl 125 ml @ 5 mls/hr Q24H IVPB 07/12/20 04:45 07/13/20 04:44 07/12/20 09:57 Enoxaparin Sodium (Lovenox) 60 mg EVERY 12 HOURS SUBQ 07/05/20 10:30 10/03/20 10:29 07/12/20 08:18 Famotidine (Pepcid I.v.) 40 mg DAILY IVP 07/08/20 09:00 08/01/20 20:59 07/12/20 08:16 Fat Emulsion Intravenous 192 ml/Amino Acids/ Electrolytes/ Dextrose 1,920 ml @ 80 mls/hr Q24H IV 07/13/20 20:00 08/12/20 19:59 Heparin Sodium/ Sodium Chloride (Heparin 1000 units/500ml Premix) 1,000 unit ONCE PRN IV picc line placement 07/10/20 15:45 07/12/20 15:44 Insulin Aspart (NovoLOG) BEFORE MEALS AND HS SUBQ 07/08/20 16:30 10/06/20 16:29 07/12/20 05:22 Lidocaine HCl (Xylocaine 1% 30ml) 30 ml ONCE PRN INJ picc line placement 07/10/20 15:45 07/12/20 15:44 Methylprednisolone Sodium Succinate (Solu-MEDROL) 40 mg DAILY IVP 07/11/20 09:00 10/09/20 08:59 07/12/20 08:16 Ondansetron HCl (Zofran) 4 mg Q6H PRN IVP Nausea & Vomiting 06/18/20 22:00 07/18/20 21:59 Assessment/Plan Assessment/Plan 1. COVID-19 pneumonia. - s/p decadron (06/22-06/28) - s/p broad-spectrum antibiotics - s/p remdesivir - CXR 06/26 better - CXR 07/12 no significant change 2. Respiratory failure. - currently back on BiPAP saturating at 99% on 100% FiO2; did not tolerate 65% FiO2 yesterday - will attempt weaning again - will attempt course of steroids (solumedrol) 3. Pulmonary embolism. - s/p heparin - Back on Lovenox as he cannot tolerate PO meds 4. Troponin leak. - 2D echo showed LV EF 65% 5. Malnutrition - TPN scheduled for Monday - PICC line Monday 6. Leukocytosis - now resolved Attempted venti-mask.. unsuccessful Will attempt weaning again The care for this patient was discussed with my supervising physician Time spent for this case was approximately 31 minutes Jhonny Vences Jul 12, 2020 10:25
[2020-07-12] MEDS ORDERED: Potassium Phosphate 20 MM in NS 275 ML IV ONE (12:30)
--- NOTE | 2020-07-12 14:59 | Nephrology Progress Note ---
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 Remains on BiPAP. Labs reviewed. Low potassium and phosphorus addressed. Awaiting initiation of TPN. Subjective ROS Limited/Unobtainable: Yes Objective Objective Last 24 Hour Vital Signs Date Time Temp Pulse Resp B/P (MAP) Pulse Ox O2 Delivery O2 Flow Rate FiO2 07/12/20 14:00 89 30 134/79 (97) 99 07/12/20 13:06 89 34 128/78 (95) 97 07/12/20 12:00 100 07/12/20 12:00 100 07/12/20 12:00 Bi-pap 07/12/20 12:00 Bi-pap Bi-pap 07/12/20 12:00 98.6 110 31 132/74 (93) 100 07/12/20 11:26 108 27 100 100 07/12/20 11:00 95 30 148/70 (96) 97 07/12/20 10:00 99 31 132/79 (96) 99 07/12/20 09:00 98 25 111/70 (84) 97 07/12/20 08:00 Bi-pap Bi-pap 07/12/20 08:00 100 07/12/20 08:00 99 07/12/20 08:00 98.6 98 27 127/78 (94) 99 07/12/20 08:00 Bi-pap 07/12/20 07:48 113 38 95 100 07/12/20 07:30 98 29 121/67 (85) 97 07/12/20 07:00 98 27 119/65 (83) 100 07/12/20 06:25 97.9 109 26 135/74 (94) 90 07/12/20 05:56 97.8 108 25 108/60 (76) 91 07/12/20 05:31 97.9 116 28 111/74 (86) 90 07/12/20 05:00 97.7 115 25 119/61 (80) 91 07/12/20 04:32 97.8 126 24 128/71 (90) 92 07/12/20 04:00 89 07/12/20 04:00 97.8 110 26 125/72 (89) 95 07/12/20 04:00 100 07/12/20 04:00 Bi-pap Bi-pap 07/12/20 03:32 97.6 124 24 134/69 (90) 90 07/12/20 03:22 110 30 97 100 07/12/20 03:00 97.7 126 26 136/74 (94) 90 07/12/20 02:41 97.7 152 26 122/65 (84) 90 07/12/20 02:10 97.6 149 26 126/68 (87) 90 07/12/20 01:48 97.6 147 24 130/72 (91) 91 07/12/20 01:39 97.7 159 28 121/67 (85) 89 07/12/20 01:15 97.7 165 30 120/69 (86) 90 07/12/20 00:00 97.8 162 30 110/64 (79) 90 07/12/20 00:00 165 07/12/20 00:00 75 07/12/20 00:00 Bi-pap Bi-pap 07/12/20 00:00 97.8 60 28 94/72 (79) 90 07/11/20 22:56 176 94/72 07/11/20 22:56 45 31 98 65 07/11/20 20:00 75 07/11/20 20:00 97.8 60 24 110/71 (84) 96 07/11/20 20:00 Bi-pap Bi-pap 07/11/20 20:00 77 07/11/20 19:15 71 45 98 65 07/11/20 16:13 75 07/11/20 16:11 Bi-pap Bi-pap 07/11/20 16:00 97.7 64 30 111/67 (82) 95 07/11/20 16:00 63 07/11/20 15:05 74 34 96 65 Intake and Output 07/11/20 07/12/20 19:00 07:00 Intake Total 35 ml Balance 35 ml IV Total 35 ml # Voids 2 2 # Bowel Movements 2 Current Medications Medications (Trade) Dose Ordered Sig/Yoselin Route PRN Reason Start Time Stop Time Status Last Admin Dose Admin Acetaminophen (Tylenol) 650 mg Q6H PRN ORAL Temp >100.5 07/03/20 16:30 08/02/20 16:29 Acetaminophen (Tylenol) 650 mg Q6H PRN ORAL For Pain 06/18/20 22:00 07/18/20 21:59 07/03/20 20:59 Acetaminophen (Tylenol) 650 mg Q6H PRN RECTAL Temp >100.5 07/04/20 20:45 08/03/20 20:44 07/04/20 21:07 Chlorhexidine Gluconate (Kalie-Hex 2%) 1 applic DAILY@2000 TOPIC 07/10/20 20:00 10/08/20 19:59 Dextrose 1,000 ml @ 0 mls/hr Q24H PRN IV PN interrupted or unavailable 07/11/20 12:15 08/10/20 12:14 Dextrose 1,000 ml @ 100 mls/hr Q10H IV 07/07/20 10:15 08/06/20 10:14 07/12/20 12:42 Dextrose (Dextrose 50%) 25 ml Q30M PRN IV Hypoglycemia 07/11/20 12:15 10/09/20 12:14 Dextrose (Dextrose 50%) 50 ml Q30M PRN IV Hypoglycemia 07/11/20 12:15 10/09/20 12:14 Diltiazem HCl 125 ml @ 5 mls/hr Q24H IVPB 07/12/20 04:45 07/13/20 04:44 07/12/20 09:57 Enoxaparin Sodium (Lovenox) 60 mg EVERY 12 HOURS SUBQ 07/05/20 10:30 10/03/20 10:29 07/12/20 08:18 Famotidine (Pepcid I.v.) 40 mg DAILY IVP 07/08/20 09:00 08/01/20 20:59 07/12/20 08:16 Fat Emulsion Intravenous 192 ml/Amino Acids/ Electrolytes/ Dextrose 1,920 ml @ 80 mls/hr Q24H IV 07/13/20 20:00 08/12/20 19:59 Folic Acid (Folate) 3 mg DAILY ORAL 07/12/20 11:30 08/11/20 11:29 Heparin Sodium/ Sodium Chloride (Heparin 1000 units/500ml Premix) 1,000 unit ONCE PRN IV picc line placement 07/10/20 15:45 07/12/20 15:44 Insulin Aspart (NovoLOG) BEFORE MEALS AND HS SUBQ 07/08/20 16:30 10/06/20 16:29 07/12/20 11:40 Lidocaine HCl (Xylocaine 1% 30ml) 30 ml ONCE PRN INJ picc line placement 07/10/20 15:45 07/12/20 15:44 Methylprednisolone Sodium Succinate (Solu-MEDROL) 40 mg DAILY IVP 07/11/20 09:00 10/09/20 08:59 07/12/20 08:16 Ondansetron HCl (Zofran) 4 mg Q6H PRN IVP Nausea & Vomiting 06/18/20 22:00 07/18/20 21:59 Potassium Phosphate 20 mm/ Sodium Chloride 281.6667 ml @ 46.944 m... ONCE ONCE IV 07/12/20 12:30 07/12/20 18:29 07/12/20 12:40 Laboratory Tests 07/11/20 16:29: POC Whole Blood Glucose 284H 07/11/20 20:16: POC Whole Blood Glucose 177H 07/12/20 00:31: Arterial Blood pH 7.483H, Arterial Blood Partial Pressure CO2 34.4L, Arterial Blood Partial Pressure O2 57.4L, Arterial Blood HCO3 25.2, Arterial Blood Oxygen Saturation 90.1L, Arterial Blood Base Excess 2.1H, Roshan Test Positive 07/12/20 04:33: White Blood Count 9.1, Red Blood Count 4.09L, Hemoglobin 12.3L, Hematocrit 37.8L , Mean Corpuscular Volume 92, Mean Corpuscular Hemoglobin 30.0, Mean Corpuscular Hemoglobin Concent 32.5, Red Cell Distribution Width 12.4, Platelet Count 167, Mean Platelet Volume 7.7, Neutrophils (%) (Auto) , Lymphocytes (%) (Auto) , Monocytes (%) (Auto) , Eosinophils (%) (Auto) , Basophils (%) (Auto) , Differential Total Cells Counted 100, Neutrophils % (Manual) 89H, Lymphocytes % (Manual) 5L, Monocytes % (Manual) 5, Eosinophils % (Manual) 1, Basophils % (Manual) 0, Band Neutrophils 0, Platelet Estimate Adequate, Platelet Morphology Normal, Red Blood Cell Morphology Normal, Sodium Level 142, Potassium Level 3.4L , Chloride Level 109H, Carbon Dioxide Level 26, Anion Gap 8, Blood Urea Nitrogen 22H, Creatinine 0.8, Estimat Glomerular Filtration Rate > 60, Glucose Level 164H , Uric Acid 4.0, Calcium Level 7.6L, Phosphorus Level 2.4L, Magnesium Level 2.1, Total Bilirubin 0.6, Gamma Glutamyl Transpeptidase 169H, Aspartate Amino Transf (AST/SGOT) 42H, Alanine Aminotransferase (ALT/SGPT) 153H, Alkaline Phosphatase 128H, Lactate Dehydrogenase 481H, Troponin I 0.023, C-Reactive Protein, Nikolay titative 4.3H, Pro-B-Type Natriuretic Peptide 1924H, Total Protein 5.6L, Albumin 1.9L, Globulin 3.7, Albumin/Globulin Ratio 0.5L, Triglycerides Level 191H, Cholesterol Level 206H, LDL Cholesterol 151H, HDL Cholesterol 28L, Cholesterol/HDL Ratio 7.4H, Lipase 407H, Vitamin B12 Level 1692H, Vitamin D 25- Hydroxy [Pending], 25-Hydroxy Vitamin D2 [Pending], 25-Hydroxy Vitamin D3 [Pending], Folate 4.2L, Thyroid Stimulating Hormone (TSH) 1.571 07/12/20 05:14: POC Whole Blood Glucose 177H 07/12/20 11:10: POC Whole Blood Glucose 190H Height (Feet): 5 Height (Inches): 4.00 Weight (Pounds): 146 General Appearance: no apparent distress, mild distress EENT: other - Remains on continuous BiPAP Cardiovascular: tachycardia Respiratory/Chest: decreased breath sounds Abdomen: distended Jimmy Saul MD Jul 12, 2020 14:58
--- NOTE | 2020-07-12 19:15 | NUR ---
NURSE HAND-OFF REPORT: Important Events on Shift:stable, on cardizem drip @10mg/hr Patient Status: full code Diet: full liquid Pending Orders: picc placement claudio Pending Results/Labs:[] Pending MD notification:[] Latest Vital Signs: Temperature 97.8 , Pulse 116 , B/P 143 /78 , Respiratory Rate 34 , O2 SAT 98 , Bi-pap, O2 Flow Rate 40.0 . Vital Sign Comment: stable EKG Rhythm: A Fib/Aflutter Rhythm change?: N MD Notified?: Y -Dr Leung covering for Dr. Kailee MAY Response: Latest Mcdowell Fall Score: 50 Fall Risk: High Risk Safety Measures: Call light Within Reach, Bed Alarm Zone 2, Side Rails Side Rails x3, Bed position Low and Locked. Fall Precautions: Door Sign Report given to kathy walter.
--- NOTE | 2020-07-12 19:16 | NUR ---
NURSE NOTES: Received report from TIMOTHY Thompson. Upon assessment pt is awake, lethargic. Responsive to verbal and tactile stimuli. PERRLA. 5-lead EKG shows A-fib at 120 bpm. BP 148/81. Afebrile. Saturating 100% on BiPAP settings of 22/6 at 100% fiO2. Left forearm #22 gauge running Diltiazem drip at 10mg/hr. Right hand #22 gauge running D5W at 100 mL/hr. Urine pouch draining well to gravity. Bed kept in lowest and locked position. Bed alarm on and call light within reach. Will monitor.
[2020-07-12] MEDS: Dyna-Hex 2% Top Sol 2oz TOPIC SCH (20:39)
--- NOTE | 2020-07-12 22:00 | NUR ---
NURSE NOTES: BSG 198 mg/dl. No cardiopulmonary distress noted. IV spreadsheet shows Volume container of Diltiazem is empty but current bag still holds approx 60mL of fluids. Current HR 93 BPM. Will monitor.
--- NOTE | 2020-07-12 22:18 | NUR ---
NURSE NOTES: Pt HR 90 BPM and BP stable. Titrate cardizem drip to 8 mg/hr from 10mg/hr. No distress noted. Will continue monitoring.
--- NOTE | 2020-07-12 22:35 | NUR ---
NURSE NOTES: HR 84 BPM after titrating Cardizem to 8 mg/hr. Will leave message for MD to discuss if he wants to continue drip or order PRN.
--- NOTE | 2020-07-12 23:15 | NUR ---
NURSE NOTES: Left message for Dr. Mejias to clarify cardizem drip orders. Dose to be completed this morning at 4AM. Pt HR fluctuating from 85-90's - still Afib on monitor. BP appears to be trending down to 106/61. Awaiting further orders.
[2020-07-13] VITALS (17 sets, daily range): BP systolic 117–160; BP diastolic 67–90
--- NOTE | 2020-07-13 01:00 | NUR ---
NURSE NOTES: HR trending down to 54 BPM. Held Cardizem. Bed bath provided. Saturating 100%. Will monitor.
--- NOTE | 2020-07-13 03:00 | NUR ---
NURSE NOTES: Pt HR appears to continue trending at 51 BPM. Pt is sleeping and responsive to stimuli. No distress noted. Will continue monitoring.
[2020-07-13 05:39] LABS: HEMATOCRIT 40.5 % (42.0-52.0); HEMOGLOBIN 13.3 G/DL (14.2-18.0); MEAN CORPUSCULAR VOLUME 91 FL (80-99); PLATELET COUNT 223 K/UL (150-450); RED BLOOD COUNT 4.45 M/UL (4.70-6.10); RED CELL DISTRIBUTION WIDTH 12.2 % (11.6-14.8); WHITE BLOOD COUNT 10.3 K/UL (4.8-10.8)
[2020-07-13] MEDS: NovoLOG Insulin Flexpen SUBQ SCH ×4 (05:39→21:09)
--- NOTE | 2020-07-13 06:13 | NUR ---
NURSE NOTES: No distress noted. 63 bpm off Cardizem drip.
[2020-07-13 06:15] LABS: ALANINE AMINOTRANSFERASE 125 U/L (12-78); ALBUMIN 1.9 G/DL (3.4-5.0); ALBUMIN/GLOBULIN RATIO 0.5 (1.0-2.7); ALKALINE PHOSPHATASE 128 U/L (46-116); ANION GAP 6 mmol/L (5-15); ASPARTATE AMINO TRANSFERASE 25 U/L (15-37); BILIRUBIN,TOTAL 0.8 MG/DL (0.2-1.0); BLOOD UREA NITROGEN 12 mg/dL (7-18); CALCIUM 8.2 MG/DL (8.5-10.1); CARBON DIOXIDE 28 MMOL/L (21-32); CHLORIDE 101 MMOL/L (98-107); CREATININE 0.8 MG/DL (0.55-1.30); POTASSIUM 3.9 MMOL/L (3.5-5.1); SODIUM 135 MMOL/L (136-145)
--- NOTE | 2020-07-13 07:25 | NUR ---
NURSE NOTES: Received patient report from TIMOTHY Haddad. Patient is AO x1 to name georgian speaking. pt is awake, lethargic. Responsive to verbal and tactile stimuli. PERRLA.Patient on Bipap 22/6 at 100% fiO2 O2 sat 96%. Right hand #22 gauge running D5W at 100 mL/hr. Bed in lowest position locked, with side rails x2 up. Call light within reach.
--- NOTE | 2020-07-13 07:53 | NUR ---
NURSE HAND-OFF REPORT: Important Events on Shift: Held Cardizem for HR of 50's Patient Status: Stable Diet: Liquid Pending Orders: Pending Results/Labs: Pending MD notification: Latest Vital Signs: Temperature 97.9 , Pulse 52 , B/P 153 /77 , Respiratory Rate 16 , O2 SAT 100 , Bi-pap, O2 Flow Rate 40.0 . Vital Sign Comment: EKG Rhythm: Atrial Fibrillation Rhythm change?: N MD Notified?: Y -Dr Leung covering for Dr. Kailee MAY Response: Latest Mcdowell Fall Score: 50 Fall Risk: High Risk Safety Measures: Call light Within Reach, Bed Alarm Zone 1, Side Rails Side Rails x3, Bed position Low and Locked. Fall Precautions: Door Sign Report given to TIMOTHY Bob.
[2020-07-13] MEDS: Solu-MEDROL 40mg Inj IVP SCH ×3 (08:40→21:13)
[2020-07-13] MEDS: Enoxaparin 60mg Inj SUBQ SCH ×2 (09:00→20:59)
[2020-07-13 10:00] LABS: PHOSPHORUS 3.2 MG/DL (2.5-4.9)
--- NOTE | 2020-07-13 10:42 | Pulmonology Progress Note ---
Subjective ROS Limited/Unobtainable: Yes Interval Events: seen in SDU Constitutional: Denies: fever HEENT: Repors: no symptoms Respiratory: Reports: no symptoms Cardiovascular: Reports: no symptoms Gastrointestinal/Abdominal: Reports: no symptoms Allergies: Coded Allergies: No Known Allergies (Unverified , 06/18/20) Objective Last 24 Hour Vital Signs Date Time Temp Pulse Resp B/P (MAP) Pulse Ox O2 Delivery O2 Flow Rate FiO2 07/13/20 10:00 57 16 150/86 (107) 100 07/13/20 09:00 53 17 144/80 (101) 100 07/13/20 08:00 100 07/13/20 08:00 59 07/13/20 08:00 98.2 55 16 148/80 (102) 100 07/13/20 08:00 Bi-pap 07/13/20 07:00 52 16 153/77 (102) 100 07/13/20 06:00 51 18 140/74 (96) 100 07/13/20 05:00 52 15 128/76 (93) 100 07/13/20 04:00 100 07/13/20 04:00 97.9 51 19 138/78 (98) 100 07/13/20 04:00 52 07/13/20 04:00 Bi-pap 07/13/20 03:14 62 21 100 100 07/13/20 03:00 52 15 132/80 (97) 100 07/13/20 02:00 55 19 128/70 (89) 100 07/13/20 01:00 52 16 131/77 (95) 100 07/13/20 00:45 75 07/13/20 00:00 Bi-pap 07/13/20 00:00 97.7 94 21 117/72 (87) 98 07/13/20 00:00 92 07/12/20 23:12 92 20 100 100 07/12/20 23:00 98 20 106/61 (76) 100 07/12/20 22:35 84 07/12/20 22:15 85 07/12/20 22:00 89 20 121/77 (92) 100 07/12/20 21:00 91 18 116/71 (86) 100 07/12/20 20:00 100 07/12/20 20:00 Bi-pap 07/12/20 20:00 97.5 109 20 148/81 (103) 100 07/12/20 20:00 100 07/12/20 19:16 111 23 99 100 07/12/20 19:00 118 30 139/80 (99) 98 07/12/20 18:00 116 34 143/78 (99) 98 07/12/20 17:00 110 30 137/76 (96) 100 07/12/20 16:00 100 07/12/20 16:00 Bi-pap 07/12/20 16:00 100 07/12/20 16:00 97.8 120 34 133/73 (93) 100 07/12/20 15:37 106 29 100 100 07/12/20 15:00 107 31 121/69 (86) 100 07/12/20 14:00 116 30 134/79 (97) 99 07/12/20 13:06 110 34 128/78 (95) 97 07/12/20 12:00 100 07/12/20 12:00 100 07/12/20 12:00 Bi-pap 07/12/20 12:00 Bi-pap Bi-pap 07/12/20 12:00 98.6 110 31 132/74 (93) 100 07/12/20 11:26 108 27 100 100 07/12/20 11:00 95 30 148/70 (96) 97 Intake and Output 07/12/20 07/13/20 19:00 07:00 Intake Total 1554.720 ml 909.7 ml Output Total 900 ml 500 ml Balance 654.720 ml 409.7 ml Intake Oral 10 ml IV Total 1554.720 ml 899.7 ml Output Urine Total 900 ml 500 ml # Bowel Movements 4 3 General Appearance: no acute distress HEENT: normocephalic Respiratory: chest wall non-tender, lungs clear Cardiovascular: normal peripheral pulses Abdomen: normal bowel sounds Extremities: no cyanosis Laboratory Tests 07/12/20 11:10: POC Whole Blood Glucose 190H 07/12/20 16:24: POC Whole Blood Glucose 256H 07/12/20 21:32: POC Whole Blood Glucose 198H 07/13/20 03:43: White Blood Count 10.3, Red Blood Count 4.45L, Hemoglobin 13.3L, Hematocrit 40.5L, Mean Corpuscular Volume 91, Mean Corpuscular Hemoglobin 29.8, Mean Corpuscular Hemoglobin Concent 32.8, Red Cell Distribution Width 12.2, Platelet Count 223, Mean Platelet Volume 7.9, Neutrophils (%) (Auto) , Lymphocytes (%) (Auto) , Monocytes (%) (Auto) , Eosinophils (%) (Auto) , Basophils (%) (Auto) , Sodium Level 135L, Potassium Level 3.9, Chloride Level 101, Carbon Dioxide Level 28, Anion Gap 6, Blood Urea Nitrogen 12, Creatinine 0.8, Estimat Glomerular Filtration Rate > 60, Glucose Level 178H, Calcium Level 8.2L, Phosphorus Level 3.2, Magnesium Level 1.7L, Total Bilirubin 0.8, Aspartate Amino Transf (AST/SGOT) 25, Alanine Aminotransferase (ALT/SGPT) 125H, Alkaline Phosphatase 128H, Total Protein 5.9L, Albumin 1.9L, Globulin 4.0, Albumin/Globulin Ratio 0.5L 07/13/20 05:36: POC Whole Blood Glucose 169H Current Medications Medications (Trade) Dose Ordered Sig/Yoselin Route PRN Reason Start Time Stop Time Status Last Admin Dose Admin Acetaminophen (Tylenol) 650 mg Q6H PRN ORAL Temp >100.5 07/03/20 16:30 08/02/20 16:29 Acetaminophen (Tylenol) 650 mg Q6H PRN ORAL For Pain 06/18/20 22:00 07/18/20 21:59 07/03/20 20:59 Acetaminophen (Tylenol) 650 mg Q6H PRN RECTAL Temp >100.5 07/04/20 20:45 08/03/20 20:44 07/04/20 21:07 Chlorhexidine Gluconate (Kalie-Hex 2%) 1 applic DAILY@2000 TOPIC 07/10/20 20:00 10/08/20 19:59 07/12/20 20:39 Dextrose 1,000 ml @ 0 mls/hr Q24H PRN IV PN interrupted or unavailable 07/11/20 12:15 08/10/20 12:14 Dextrose 1,000 ml @ 100 mls/hr Q10H IV 07/07/20 10:15 08/06/20 10:14 07/13/20 09:00 Dextrose (Dextrose 50%) 25 ml Q30M PRN IV Hypoglycemia 07/11/20 12:15 10/09/20 12:14 Dextrose (Dextrose 50%) 50 ml Q30M PRN IV Hypoglycemia 07/11/20 12:15 10/09/20 12:14 Enoxaparin Sodium (Lovenox) 60 mg EVERY 12 HOURS SUBQ 07/05/20 10:30 10/03/20 10:29 07/12/20 08:18 Famotidine (Pepcid I.v.) 40 mg DAILY IVP 07/08/20 09:00 08/01/20 20:59 07/13/20 09:08 Fat Emulsion Intravenous 192 ml/Amino Acids/ Electrolytes/ Dextrose 1,920 ml @ 80 mls/hr Q24H IV 07/13/20 20:00 08/12/20 19:59 Folic Acid (Folate) 3 mg DAILY ORAL 07/12/20 11:30 08/11/20 11:29 07/13/20 09:08 Insulin Aspart (NovoLOG) BEFORE MEALS AND HS SUBQ 07/08/20 16:30 10/06/20 16:29 07/13/20 05:39 Methylprednisolone Sodium Succinate (Solu-MEDROL) 40 mg DAILY IVP 07/11/20 09:00 10/09/20 08:59 07/13/20 08:40 Ondansetron HCl (Zofran) 4 mg Q6H PRN IVP Nausea & Vomiting 06/18/20 22:00 07/18/20 21:59 Assessment/Plan Assessment/Plan 1. COVID-19 pneumonia. - s/p decadron (06/22-06/28) - s/p broad-spectrum antibiotics - s/p remdesivir - CXR 06/26 better - CXR 07/12 no significant change 2. Respiratory failure. - currently back on BiPAP saturating at 99% on 100% FiO2; did not tolerate 65% FiO2 - will attempt weaning again with NRB or high flow - will attempt course of steroids (solumedrol) 3. Pulmonary embolism. - s/p heparin - Back on Lovenox as he cannot tolerate PO meds 4. Troponin leak. - 2D echo showed LV EF 65% 5. Malnutrition - awaiting PICC line and TPN today 6. Leukocytosis - now resolved seen in [facility] Attempted venti-mask.. unsuccessful Will attempt weaning again with NRB or high flow oxygen The care for this patient was discussed with my supervising physician Time spent for this case was approximately 31 minutes Jhonny Vences Jul 13, 2020 10:41
--- NOTE | 2020-07-13 10:47 | Nephrology Progress Note ---
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 Low magnesium addressed. Continue per current management. July 12: Remains full code. Remains on BiPAP. Labs reviewed. Low potassium and phosphorus addressed. Awaiting initiation of TPN. Subjective ROS Limited/Unobtainable: Yes Objective Objective Last 24 Hour Vital Signs Date Time Temp Pulse Resp B/P (MAP) Pulse Ox O2 Delivery O2 Flow Rate FiO2 07/13/20 10:00 57 16 150/86 (107) 100 07/13/20 09:00 53 17 144/80 (101) 100 07/13/20 08:00 100 07/13/20 08:00 59 07/13/20 08:00 98.2 55 16 148/80 (102) 100 07/13/20 08:00 Bi-pap 07/13/20 07:00 52 16 153/77 (102) 100 07/13/20 06:00 51 18 140/74 (96) 100 07/13/20 05:00 52 15 128/76 (93) 100 07/13/20 04:00 100 07/13/20 04:00 97.9 51 19 138/78 (98) 100 07/13/20 04:00 52 07/13/20 04:00 Bi-pap 07/13/20 03:14 62 21 100 100 07/13/20 03:00 52 15 132/80 (97) 100 07/13/20 02:00 55 19 128/70 (89) 100 07/13/20 01:00 52 16 131/77 (95) 100 07/13/20 00:45 75 07/13/20 00:00 Bi-pap 07/13/20 00:00 97.7 94 21 117/72 (87) 98 07/13/20 00:00 92 07/12/20 23:12 92 20 100 100 07/12/20 23:00 98 20 106/61 (76) 100 07/12/20 22:35 84 07/12/20 22:15 85 07/12/20 22:00 89 20 121/77 (92) 100 07/12/20 21:00 91 18 116/71 (86) 100 07/12/20 20:00 100 07/12/20 20:00 Bi-pap 07/12/20 20:00 97.5 109 20 148/81 (103) 100 07/12/20 20:00 100 07/12/20 19:16 111 23 99 100 07/12/20 19:00 118 30 139/80 (99) 98 07/12/20 18:00 116 34 143/78 (99) 98 07/12/20 17:00 110 30 137/76 (96) 100 07/12/20 16:00 100 07/12/20 16:00 Bi-pap 07/12/20 16:00 100 07/12/20 16:00 97.8 120 34 133/73 (93) 100 07/12/20 15:37 106 29 100 100 07/12/20 15:00 107 31 121/69 (86) 100 07/12/20 14:00 116 30 134/79 (97) 99 07/12/20 13:06 110 34 128/78 (95) 97 07/12/20 12:00 100 07/12/20 12:00 100 07/12/20 12:00 Bi-pap 07/12/20 12:00 Bi-pap Bi-pap 07/12/20 12:00 98.6 110 31 132/74 (93) 100 07/12/20 11:26 108 27 100 100 07/12/20 11:00 95 30 148/70 (96) 97 Intake and Output 07/12/20 07/13/20 19:00 07:00 Intake Total 1554.720 ml 909.7 ml Output Total 900 ml 500 ml Balance 654.720 ml 409.7 ml Intake Oral 10 ml IV Total 1554.720 ml 899.7 ml Output Urine Total 900 ml 500 ml # Bowel Movements 4 3 Current Medications Medications (Trade) Dose Ordered Sig/Yoselin Route PRN Reason Start Time Stop Time Status Last Admin Dose Admin Acetaminophen (Tylenol) 650 mg Q6H PRN ORAL Temp >100.5 07/03/20 16:30 08/02/20 16:29 Acetaminophen (Tylenol) 650 mg Q6H PRN ORAL For Pain 06/18/20 22:00 07/18/20 21:59 07/03/20 20:59 Acetaminophen (Tylenol) 650 mg Q6H PRN RECTAL Temp >100.5 07/04/20 20:45 08/03/20 20:44 07/04/20 21:07 Chlorhexidine Gluconate (Kalie-Hex 2%) 1 applic DAILY@2000 TOPIC 07/10/20 20:00 10/08/20 19:59 07/12/20 20:39 Dextrose 1,000 ml @ 0 mls/hr Q24H PRN IV PN interrupted or unavailable 07/11/20 12:15 08/10/20 12:14 Dextrose 1,000 ml @ 100 mls/hr Q10H IV 07/07/20 10:15 08/06/20 10:14 07/13/20 09:00 Dextrose (Dextrose 50%) 25 ml Q30M PRN IV Hypoglycemia 07/11/20 12:15 10/09/20 12:14 Dextrose (Dextrose 50%) 50 ml Q30M PRN IV Hypoglycemia 07/11/20 12:15 10/09/20 12:14 Enoxaparin Sodium (Lovenox) 60 mg EVERY 12 HOURS SUBQ 07/05/20 10:30 10/03/20 10:29 07/12/20 08:18 Famotidine (Pepcid I.v.) 40 mg DAILY IVP 07/08/20 09:00 08/01/20 20:59 07/13/20 09:08 Fat Emulsion Intravenous 192 ml/Amino Acids/ Electrolytes/ Dextrose 1,920 ml @ 80 mls/hr Q24H IV 07/13/20 20:00 08/12/20 19:59 Folic Acid (Folate) 3 mg DAILY ORAL 07/12/20 11:30 08/11/20 11:29 07/13/20 09:08 Insulin Aspart (NovoLOG) BEFORE MEALS AND HS SUBQ 07/08/20 16:30 10/06/20 16:29 07/13/20 05:39 Methylprednisolone Sodium Succinate (Solu-MEDROL) 40 mg DAILY IVP 07/11/20 09:00 10/09/20 08:59 07/13/20 08:40 Ondansetron HCl (Zofran) 4 mg Q6H PRN IVP Nausea & Vomiting 06/18/20 22:00 07/18/20 21:59 Laboratory Tests 07/12/20 11:10: POC Whole Blood Glucose 190H 07/12/20 16:24: POC Whole Blood Glucose 256H 07/12/20 21:32: POC Whole Blood Glucose 198H 07/13/20 03:43: White Blood Count 10.3, Red Blood Count 4.45L, Hemoglobin 13.3L, Hematocrit 40.5L, Mean Corpuscular Volume 91, Mean Corpuscular Hemoglobin 29.8, Mean Corpuscular Hemoglobin Concent 32.8, Red Cell Distribution Width 12.2, Platelet Count 223, Mean Platelet Volume 7.9, Neutrophils (%) (Auto) , Lymphocytes (%) (Auto) , Monocytes (%) (Auto) , Eosinophils (%) (Auto) , Basophils (%) (Auto) , Sodium Level 135L, Potassium Level 3.9, Chloride Level 101, Carbon Dioxide Level 28, Anion Gap 6, Blood Urea Nitrogen 12, Creatinine 0.8, Estimat Glomerular Filtration Rate > 60, Glucose Level 178H, Calcium Level 8.2L, Phosphorus Level 3.2, Magnesium Level 1.7L, Total Bilirubin 0.8, Aspartate Amino Transf (AST/SGOT) 25, Alanine Aminotransferase (ALT/SGPT) 125H, Alkaline Phosphatase 128H, Total Protein 5.9L, Albumin 1.9L, Globulin 4.0, Albumin/Globulin Ratio 0.5L 07/13/20 05:36: POC Whole Blood Glucose 169H Height (Feet): 5 Height (Inches): 4.00 Weight (Pounds): 146 General Appearance: no apparent distress EENT: other - On BiPAP Cardiovascular: normal rate Respiratory/Chest: decreased breath sounds Abdomen: distended Jimmy Saul MD Jul 13, 2020 10:47
--- NOTE | 2020-07-13 11:04 | Infectious Diseases Prog Note ---
Assessment/Plan Assessment/Plan antibiotics : none A 1. COVID 19 pneumonia on bipap 100 % Fi O2 with 100 % saturation s/p remdesivir 2. pulmonary embolism 3. respiratory failure P 1. continue solumedrol increase dose 2. continue isolation Subjective ROS Limited/Unobtainable: Yes Allergies: Coded Allergies: No Known Allergies (Unverified , 06/18/20) Objective Last 24 Hour Vital Signs Date Time Temp Pulse Resp B/P (MAP) Pulse Ox O2 Delivery O2 Flow Rate FiO2 07/13/20 10:00 57 16 150/86 (107) 100 07/13/20 09:00 53 17 144/80 (101) 100 07/13/20 08:00 100 07/13/20 08:00 59 07/13/20 08:00 98.2 55 16 148/80 (102) 100 07/13/20 08:00 Bi-pap 07/13/20 07:00 52 16 153/77 (102) 100 07/13/20 06:00 51 18 140/74 (96) 100 07/13/20 05:00 52 15 128/76 (93) 100 07/13/20 04:00 100 07/13/20 04:00 97.9 51 19 138/78 (98) 100 07/13/20 04:00 52 07/13/20 04:00 Bi-pap 07/13/20 03:14 62 21 100 100 07/13/20 03:00 52 15 132/80 (97) 100 07/13/20 02:00 55 19 128/70 (89) 100 07/13/20 01:00 52 16 131/77 (95) 100 07/13/20 00:45 75 07/13/20 00:00 Bi-pap 07/13/20 00:00 97.7 94 21 117/72 (87) 98 07/13/20 00:00 92 07/12/20 23:12 92 20 100 100 07/12/20 23:00 98 20 106/61 (76) 100 07/12/20 22:35 84 07/12/20 22:15 85 07/12/20 22:00 89 20 121/77 (92) 100 07/12/20 21:00 91 18 116/71 (86) 100 07/12/20 20:00 100 07/12/20 20:00 Bi-pap 07/12/20 20:00 97.5 109 20 148/81 (103) 100 07/12/20 20:00 100 07/12/20 19:16 111 23 99 100 07/12/20 19:00 118 30 139/80 (99) 98 07/12/20 18:00 116 34 143/78 (99) 98 07/12/20 17:00 110 30 137/76 (96) 100 07/12/20 16:00 100 07/12/20 16:00 Bi-pap 07/12/20 16:00 100 07/12/20 16:00 97.8 120 34 133/73 (93) 100 07/12/20 15:37 106 29 100 100 07/12/20 15:00 107 31 121/69 (86) 100 07/12/20 14:00 116 30 134/79 (97) 99 07/12/20 13:06 110 34 128/78 (95) 97 07/12/20 12:00 100 07/12/20 12:00 100 07/12/20 12:00 Bi-pap 07/12/20 12:00 Bi-pap Bi-pap 07/12/20 12:00 98.6 110 31 132/74 (93) 100 07/12/20 11:26 108 27 100 100 Height (Feet): 5 Height (Inches): 4.00 Weight (Pounds): 146 HEENT: other - on bipap Laboratory Tests Test 07/12/20 11:10 07/12/20 16:24 07/12/20 21:32 07/13/20 03:43 POC Whole Blood Glucose 190 MG/DL (74-106) H 256 MG/DL (74-106) H 198 MG/DL (74-106) H White Blood Count 10.3 K/UL (4.8-10.8) Red Blood Count 4.45 M/UL (4.70-6.10) L Hemoglobin 13.3 G/DL (14.2-18.0) L Hematocrit 40.5 % (42.0-52.0) L Mean Corpuscular Volume 91 FL (80-99) Mean Corpuscular Hemoglobin 29.8 PG (27.0-31.0) Mean Corpuscular Hemoglobin Concent 32.8 G/DL (32.0-36.0) Red Cell Distribution Width 12.2 % (11.6-14.8) Platelet Count 223 K/UL (150-450) Mean Platelet Volume 7.9 FL (6.5-10.1) Neutrophils (%) (Auto) % (45.0-75.0) Lymphocytes (%) (Auto) % (20.0-45.0) Monocytes (%) (Auto) % (1.0-10.0) Eosinophils (%) (Auto) % (0.0-3.0) Basophils (%) (Auto) % (0.0-2.0) Sodium Level 135 MMOL/L (136-145) L Potassium Level 3.9 MMOL/L (3.5-5.1) Chloride Level 101 MMOL/L (98-107) Carbon Dioxide Level 28 MMOL/L (21-32) Anion Gap 6 mmol/L (5-15) Blood Urea Nitrogen 12 mg/dL (7-18) Creatinine 0.8 MG/DL (0.55-1.30) Estimat Glomerular Filtration Rate > 60 mL/min (>60) Glucose Level 178 MG/DL (74-106) H Calcium Level 8.2 MG/DL (8.5-10.1) L Phosphorus Level 3.2 MG/DL (2.5-4.9) Magnesium Level 1.7 MG/DL (1.8-2.4) L Total Bilirubin 0.8 MG/DL (0.2-1.0) Aspartate Amino Transf (AST/SGOT) 25 U/L (15-37) Alanine Aminotransferase (ALT/SGPT) 125 U/L (12-78) H Alkaline Phosphatase 128 U/L (46-116) H Total Protein 5.9 G/DL (6.4-8.2) L Albumin 1.9 G/DL (3.4-5.0) L Globulin 4.0 g/dL Albumin/Globulin Ratio 0.5 (1.0-2.7) L Test 07/13/20 05:36 POC Whole Blood Glucose 169 MG/DL (74-106) H Current Medications Medications (Trade) Dose Ordered Sig/Yoselin Route PRN Reason Start Time Stop Time Status Last Admin Dose Admin Acetaminophen (Tylenol) 650 mg Q6H PRN ORAL Temp >100.5 07/03/20 16:30 08/02/20 16:29 Acetaminophen (Tylenol) 650 mg Q6H PRN ORAL For Pain 06/18/20 22:00 07/18/20 21:59 07/03/20 20:59 Acetaminophen (Tylenol) 650 mg Q6H PRN RECTAL Temp >100.5 07/04/20 20:45 08/03/20 20:44 07/04/20 21:07 Chlorhexidine Gluconate (Kalie-Hex 2%) 1 applic DAILY@2000 TOPIC 07/10/20 20:00 10/08/20 19:59 07/12/20 20:39 Dextrose 1,000 ml @ 0 mls/hr Q24H PRN IV PN interrupted or unavailable 07/11/20 12:15 08/10/20 12:14 Dextrose 1,000 ml @ 100 mls/hr Q10H IV 07/07/20 10:15 08/06/20 10:14 07/13/20 09:00 Dextrose (Dextrose 50%) 25 ml Q30M PRN IV Hypoglycemia 07/11/20 12:15 10/09/20 12:14 Dextrose (Dextrose 50%) 50 ml Q30M PRN IV Hypoglycemia 07/11/20 12:15 10/09/20 12:14 Enoxaparin Sodium (Lovenox) 60 mg EVERY 12 HOURS SUBQ 07/05/20 10:30 10/03/20 10:29 07/12/20 08:18 Famotidine (Pepcid I.v.) 40 mg DAILY IVP 07/08/20 09:00 08/01/20 20:59 07/13/20 09:08 Fat Emulsion Intravenous 192 ml/Amino Acids/ Electrolytes/ Dextrose 1,920 ml @ 80 mls/hr Q24H IV 07/13/20 20:00 08/12/20 19:59 Folic Acid (Folate) 3 mg DAILY ORAL 07/12/20 11:30 08/11/20 11:29 07/13/20 09:08 Insulin Aspart (NovoLOG) BEFORE MEALS AND HS SUBQ 07/08/20 16:30 10/06/20 16:29 07/13/20 05:39 Magnesium Sulfate 100 ml @ 100 mls/hr Q1H IVPB 07/13/20 11:00 07/13/20 12:59 Methylprednisolone Sodium Succinate (Solu-MEDROL) 40 mg DAILY IVP 07/11/20 09:00 10/09/20 08:59 07/13/20 08:40 Ondansetron HCl (Zofran) 4 mg Q6H PRN IVP Nausea & Vomiting 06/18/20 22:00 07/18/20 21:59 Swapna Falk MD Jul 13, 2020 11:04
[2020-07-13] MEDS ORDERED: Heparin1,000 units/500ml Premix(Conc:2 units/ml) IV PRN (12:23)
[2020-07-13] MEDS ORDERED: Lidocaine 1% Plain 30 ml INJ PRN (12:23)
--- NOTE | 2020-07-13 13:20 | NUR ---
PreboarderPrint Color Operator SI: Respiratory Failure, Pulmonary Emboli, COVID-19 T 98.4, HR 65, RR 17, BP 131/78 BIPAP 18/10 FiO2 80%, O2 Sat 100% WBC 10.3, Glucose 169 IS: Pepcid IV BID lovenox sq bid Solu-medrol IVP q 12 h Insulin NovoLog sq sliding scale AC/HS D5 IV at 100ml/hr TPN @ 80cc/hr Step Down Status
--- NOTE | 2020-07-13 15:09 | NUR ---
RADIOLOGY NOTE: LEFT UPPER EXTREMITY PICC LINE PLACEMENT BY DR. SHARONDA TORRES AT 1425 HRS. FA
--- NOTE | 2020-07-13 16:01 | Brief Operative Note ---
Immediate Post Operative Note Operative Note Pre-op Diagnosis: needs IV access Procedure: PICC Post-op Diagnosis: same as pre-op Specimen: none Complications: none Fluids: none Implant(s) used?: No Memo Hill MD Jul 13, 2020 16:01
--- NOTE | 2020-07-13 16:40 | NUR ---
RESPIRATORY NOTES Per Eric MAY's verbal order, PT to be placed on 100% NRB mask. PT taken off bipap and placed on mask. PT's SaO2 dropped and respiratory rate increased, within five minutes. PT then placed back onto bipap and is no longer in distress. TIMOTHY Bob present. Will continue to monitor.
--- NOTE | 2020-07-13 16:42 | Diagnostic Imaging Report ---
Indications: Needs long-term IV access Technique: Procedure performed at bedside. Procedural timeout performed. Ultrasound confirms patent compressible left basilic vein. Total sterile technique, including sterile probe cover and sterile gel, sterile gloves, hand hygiene, hat, mask,, sterile gown, large sterile drape, and preparation with 2% chlorhexidine utilized. Local anesthesia with 1% lidocaine. Under real-time ultrasound guidance, puncture basilic vein using 21-gauge needle, passage 0.018 guidewire, exchange for 4 Mohawk peel-away sheath. 4 [place] Bard dual-lumen power PICC cut to 44 cm. It was inserted through the peel-away sheath. Peel-away sheath and guidewire removed. Catheter fixed to the skin. Both catheter ports aspirated and flushed. Patient tolerated procedure well, without immediate complication. Followup chest x-ray obtained, documents catheter tip position at the deep right atrium. Catheter was pulled back, and follow-up chest x-ray demonstrates satisfactory catheter tip position at the high right atrium. Impression: Successful bedside placement of right arm PICC under sonographic guidance, as described above.
--- NOTE | 2020-07-13 19:27 | NUR ---
NURSE HAND-OFF REPORT: Important Events on Shift:PICC line inserted Patient Status: Stable Diet: NPO Pending Orders: NA Pending Results/Labs:NA Pending notification:NA Latest Vital Signs: Temperature 98.4 , Pulse 76 , B/P 136 /72 , Respiratory Rate 18 , O2 SAT 100 , Bi-pap, O2 Flow Rate 40.0 . Vital Sign Comment: Stable EKG Rhythm: Sinus Rhythm Rhythm change?: N MD Notified?: Y -Dr Leung covering for Dr. Kailee MAY Response: Latest Mcdowell Fall Score: 50 Fall Risk: High Risk Safety Measures: Call light Within Reach, Bed Alarm Zone 2, Side Rails Side Rails x3, Bed position Low and Locked. Fall Precautions: Door Sign Report given to TIMOTHY Arellano.
--- NOTE | 2020-07-13 19:30 | NUR ---
NURSE NOTES: Got report from Justin. Patient is AO x0-1 to name pashto speaking. Pt is asleep comfortably lethargic no acute distress noted. Responsive to verbal and tactile stimuli. WHITNEY. Pt on Bipap 22/6 at 80% fiO2 O2 sat 96%. Right hand 22g intact and patent slocked. Pt has L wrist 22g slocked patent and intact. Pt has AFSANEH PICC DL w/TPN@80ml/hr. Pt on quality assurance monitor running NSR occasional afib. Bed in lowest position locked, with side rails x2 up. Call light within reach. Continue to monitor. Addendum: 07/14/20 at 0519 by Peyman Peterson RN 0: Bipap settings changed to 22/6 at 90% FiO2
[2020-07-13] MEDS: Dyna-Hex 2% Top Sol 2oz TOPIC SCH (20:00)
[2020-07-13] MEDS: TPN IV SCH (20:00)
[2020-07-13] MEDS: FAT EMULSION 20% IV SCH (20:00)
[2020-07-14] VITALS: BP 137/85
--- NOTE | 2020-07-14 01:15 | Cardiology Progress Note ---
Subjective DATE OF SERVICE: Jul 13, 2020 Remains on bipap support, requiring high flow oxygen - still unable to taper. Monitor: sinus rhythm with rare ectopics 2D Echo - normal LVEF, no signs RV strain, normal PA pressure of 30mm Hg CXR (07/12) bilateral infiltrates unchanged; possible component of edema ABG (07/12) 7.48/34/57 Objective Last 24 Hour Vital Signs Date Time Temp Pulse Resp B/P (MAP) Pulse Ox O2 Delivery O2 Flow Rate FiO2 07/14/20 00:00 Bi-pap 07/14/20 00:00 98.4 61 16 137/85 (102) 100 07/14/20 00:00 80 07/13/20 22:49 79 32 96 80 07/13/20 20:00 80 07/13/20 20:00 98.7 80 20 160/90 (113) 100 07/13/20 20:00 Bi-pap 07/13/20 20:00 75 07/13/20 19:47 83 27 98 80 07/13/20 16:00 76 07/13/20 16:00 Bi-pap 07/13/20 16:00 80 07/13/20 15:25 76 18 100 80 07/13/20 15:00 83 20 136/72 (93) 100 07/13/20 14:00 73 21 132/67 (88) 100 07/13/20 13:00 98.4 65 17 131/78 (95) 100 07/13/20 12:00 Bi-pap 07/13/20 12:00 62 07/13/20 12:00 80 07/13/20 12:00 98.4 58 16 134/68 (90) 100 07/13/20 11:00 61 18 135/78 (97) 100 07/13/20 10:00 57 16 150/86 (107) 100 07/13/20 09:00 53 17 144/80 (101) 100 07/13/20 08:00 100 07/13/20 08:00 59 07/13/20 08:00 98.2 55 16 148/80 (102) 100 07/13/20 08:00 Bi-pap 07/13/20 07:30 51 26 100 80 07/13/20 07:00 52 16 153/77 (102) 100 07/13/20 06:00 51 18 140/74 (96) 100 07/13/20 05:00 52 15 128/76 (93) 100 07/13/20 04:00 100 07/13/20 04:00 97.9 51 19 138/78 (98) 100 07/13/20 04:00 52 07/13/20 04:00 Bi-pap 07/13/20 03:14 62 21 100 100 07/13/20 03:00 52 15 132/80 (97) 100 07/13/20 02:00 55 19 128/70 (89) 100 ROS: unchanged from 06/19/20 HEENT: other - bipap RHYTHM: ST LUNGS: bilat. rhonchi and rales CARDIAC: normal rate, regular rhythm, normal S1 and S2 ABDOMEN: normal bowel sounds, soft, distended EXTREMITIES: normal range of motion, non-tender, trace edema Laboratory Tests Test 07/13/20 03:43 07/13/20 05:36 White Blood Count 10.3 K/UL (4.8-10.8) Red Blood Count 4.45 M/UL (4.70-6.10) L Hemoglobin 13.3 G/DL (14.2-18.0) L Hematocrit 40.5 % (42.0-52.0) L Mean Corpuscular Volume 91 FL (80-99) Mean Corpuscular Hemoglobin 29.8 PG (27.0-31.0) Mean Corpuscular Hemoglobin Concent 32.8 G/DL (32.0-36.0) Red Cell Distribution Width 12.2 % (11.6-14.8) Platelet Count 223 K/UL (150-450) Mean Platelet Volume 7.9 FL (6.5-10.1) Neutrophils (%) (Auto) % (45.0-75.0) Lymphocytes (%) (Auto) % (20.0-45.0) Monocytes (%) (Auto) % (1.0-10.0) Eosinophils (%) (Auto) % (0.0-3.0) Basophils (%) (Auto) % (0.0-2.0) Sodium Level 135 MMOL/L (136-145) L Potassium Level 3.9 MMOL/L (3.5-5.1) Chloride Level 101 MMOL/L (98-107) Carbon Dioxide Level 28 MMOL/L (21-32) Anion Gap 6 mmol/L (5-15) Blood Urea Nitrogen 12 mg/dL (7-18) Creatinine 0.8 MG/DL (0.55-1.30) Estimat Glomerular Filtration Rate > 60 mL/min (>60) Glucose Level 178 MG/DL (74-106) H Calcium Level 8.2 MG/DL (8.5-10.1) L Phosphorus Level 3.2 MG/DL (2.5-4.9) Magnesium Level 1.7 MG/DL (1.8-2.4) L Total Bilirubin 0.8 MG/DL (0.2-1.0) Aspartate Amino Transf (AST/SGOT) 25 U/L (15-37) Alanine Aminotransferase (ALT/SGPT) 125 U/L (12-78) H Alkaline Phosphatase 128 U/L (46-116) H Total Protein 5.9 G/DL (6.4-8.2) L Albumin 1.9 G/DL (3.4-5.0) L Globulin 4.0 g/dL Albumin/Globulin Ratio 0.5 (1.0-2.7) L POC Whole Blood Glucose 169 MG/DL (74-106) H Assessment/Plan Assessment/Plan COVID 19 PNA Hypoxia Ac pulmonary embolism Acute coronary syndrome/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 Diuresis for negative fluid balance Full anticoagulation Monitor for sustained atrial arrhythmias Replace lytes as needed Insulin cov'g by SS Will continue diuresis to maintain negative fluid balance and possibly improve oxygenation. Aden Mejias MD Jul 14, 2020 01:15
[2020-07-14 04:00] VITALS: BP 122/68
[2020-07-14] MEDS: NovoLOG Insulin Flexpen SUBQ SCH ×4 (06:05→21:19)
--- NOTE | 2020-07-14 07:20 | NUR ---
NURSE NOTES:Handoff received from TIMOTHY Morley. Patient received resting in bed, on BIPAP with settings 22/16 saturating at 94% with no acute signs of distress noted. patient is on vehicle monitor technician running ST with HR 109, patient is placed on aspiration, fall and isolation precautions with bed in the low and locked position, bed alarm on, call light within reach and HOB elevated to 30' patient is also NPO. External urine catheter is patent and draining to gravity. Patient is responsive to voice and is able to make needs known. Patient has DTI noted on the bridge of the nose, PICC line left upper arm is running TPN @80ML/HR. Patient also has L wrist 22G and R hand 22G. Will follow plan of care.
--- NOTE | 2020-07-14 07:20 | NUR ---
NURSE HAND-OFF REPORT: Important Events on Shift:[TPN STARTED] Patient Status: [STABLE] Diet: [NPO] Pending Orders: [] Pending Results/Labs:[] Pending MD notification:[] Latest Vital Signs: Temperature 98.0 , Pulse 82 , B/P 122 /68 , Respiratory Rate 20 , O2 SAT 100 , Bi-pap, O2 Flow Rate 40.0 . Vital Sign Comment: [] EKG Rhythm: SR w inverted t wave Rhythm change?: N MD Notified?: Y -Dr Leung covering for Dr. Kailee MAY Response: Latest Mcdowell Fall Score: 50 Fall Risk: High Risk Safety Measures: Call light Within Reach, Bed Alarm Zone 2, Side Rails Side Rails x3, Bed position Low and Locked. Fall Precautions: Door Sign Report given to [CHANTELL AGUIRRE].
[2020-07-14 08:00] VITALS: BP 117/83
[2020-07-14] MEDS: Solu-MEDROL 40mg Inj IVP SCH (08:53)
[2020-07-14] MEDS: Enoxaparin 60mg Inj SUBQ SCH ×2 (08:55→21:16)
--- NOTE | 2020-07-14 11:51 | Nephrology Progress Note ---
Assessment/Plan Problem List: (1) Malnutrition (2) Hypoxia (3) Pneumonia due to COVID-19 virus (4) Pulmonary embolus Assessment COVID 19 PNA Hypoxia Ac pulmonary embolism Acute coronary syndrome/Probable NSTE myocardial infarction involving right heart - now stabilized with no signs of RV dysfxn Severe protein/calorie malnutrition Steroid induced diabetes mellitus No pulmonary hypertension Ac diastolic CHF improved Plan July 14: Patient started on TPN since last night. We will continue to monitor electrolytes and renal parameters and adjust TPN composition as needed. Discussed with pharmacy. July 13: Due for PICC line today and initiation of TPN. Low magnesium addressed. Continue per current management. July 12: Remains full code. Remains on BiPAP. Labs reviewed. Low potassium and phosphorus addressed. Awaiting initiation of TPN. Subjective ROS Limited/Unobtainable: Yes Objective Objective Last 24 Hour Vital Signs Date Time Temp Pulse Resp B/P (MAP) Pulse Ox O2 Delivery O2 Flow Rate FiO2 07/14/20 08:37 55 07/14/20 08:00 98.1 74 20 117/83 (94) 98 07/14/20 08:00 90 07/14/20 08:00 Bi-pap 07/14/20 07:10 57 38 96 90 07/14/20 04:00 82 07/14/20 04:00 98.0 66 20 122/68 (86) 100 07/14/20 04:00 Bi-pap 07/14/20 04:00 90 07/14/20 02:53 81 38 95 90 07/14/20 00:00 Bi-pap 07/14/20 00:00 98.4 61 16 137/85 (102) 100 07/14/20 00:00 80 07/14/20 00:00 80 07/13/20 22:49 79 32 96 80 07/13/20 20:00 80 07/13/20 20:00 98.7 80 20 160/90 (113) 100 07/13/20 20:00 Bi-pap 07/13/20 20:00 75 07/13/20 19:47 83 27 98 80 07/13/20 16:00 76 07/13/20 16:00 Bi-pap 07/13/20 16:00 80 07/13/20 15:25 76 18 100 80 07/13/20 15:00 83 20 136/72 (93) 100 07/13/20 14:00 73 21 132/67 (88) 100 07/13/20 13:00 98.4 65 17 131/78 (95) 100 07/13/20 12:00 Bi-pap 07/13/20 12:00 62 07/13/20 12:00 80 07/13/20 12:00 98.4 58 16 134/68 (90) 100 Intake and Output 07/13/20 07/14/20 19:00 07:00 Intake Total 900 ml Output Total 450 ml 800 ml Balance 450 ml -800 ml IV Total 900 ml Output Urine Total 450 ml 800 ml # Bowel Movements 4 3 Current Medications Medications (Trade) Dose Ordered Sig/Yoselin Route PRN Reason Start Time Stop Time Status Last Admin Dose Admin Acetaminophen (Tylenol) 650 mg Q6H PRN ORAL Temp >100.5 07/03/20 16:30 08/02/20 16:29 Acetaminophen (Tylenol) 650 mg Q6H PRN ORAL For Pain 06/18/20 22:00 07/18/20 21:59 07/03/20 20:59 Acetaminophen (Tylenol) 650 mg Q6H PRN RECTAL Temp >100.5 07/04/20 20:45 08/03/20 20:44 07/04/20 21:07 Chlorhexidine Gluconate (Kalie-Hex 2%) 1 applic DAILY@2000 TOPIC 07/13/20 20:00 10/11/20 19:59 07/13/20 20:00 Dextrose 1,000 ml @ 0 mls/hr Q24H PRN IV PN interrupted or unavailable 07/11/20 12:15 08/10/20 12:14 Dextrose (Dextrose 50%) 25 ml Q30M PRN IV Hypoglycemia 07/11/20 12:15 10/09/20 12:14 Dextrose (Dextrose 50%) 50 ml Q30M PRN IV Hypoglycemia 07/11/20 12:15 10/09/20 12:14 Enoxaparin Sodium (Lovenox) 60 mg EVERY 12 HOURS SUBQ 07/05/20 10:30 10/03/20 10:29 07/14/20 08:55 Famotidine (Pepcid I.v.) 40 mg DAILY IVP 07/08/20 09:00 08/01/20 20:59 07/14/20 08:53 Fat Emulsion Intravenous 192 ml/Amino Acids/ Electrolytes/ Dextrose 1,920 ml @ 80 mls/hr Q24H IV 07/13/20 20:00 08/12/20 19:59 07/13/20 20:00 Folic Acid (Folate) 3 mg DAILY ORAL 07/12/20 11:30 08/11/20 11:29 07/14/20 08:54 Insulin Aspart (NovoLOG) BEFORE MEALS AND HS SUBQ 07/08/20 16:30 10/06/20 16:29 07/14/20 06:05 Methylprednisolone Sodium Succinate (Solu-MEDROL) 40 mg EVERY 12 HOURS IVP 07/13/20 12:00 10/11/20 11:59 07/14/20 08:53 Ondansetron HCl (Zofran) 4 mg Q6H PRN IVP Nausea & Vomiting 06/18/20 22:00 07/18/20 21:59 Laboratory Tests 07/14/20 11:47: POC Whole Blood Glucose 248H Height (Feet): 5 Height (Inches): 4.00 Weight (Pounds): 146 General Appearance: no apparent distress EENT: other - On BiPAP Cardiovascular: normal rate Respiratory/Chest: decreased breath sounds Abdomen: distended Jimmy Saul MD Jul 14, 2020 11:51
[2020-07-14 11:53] VITALS: BP 144/96
--- NOTE | 2020-07-14 12:24 | NUR ---
RD ASSESSMENT & RECOMMENDATIONS SEE CARE ACTIVITY FOR COMPLETE ASSESSMENT DAILY ESTIMATED NEEDS: Needs based on pulmonary 62kg 25-30 kcals/kg 2924-8953 total kcals 1.25-1.5 g protein/kg 77-93 g total protein 25-30 mL/kg 4138-9889 total fluid mLs NUTRITION DIAGNOSIS: Predicted poor po intake r/t respiratory status/ bipap use as evidenced by pt is covid ++, on bipap, desats when off device, diet now advanced from clear liquid diet to full liquid w/ prolonged poor PO/ meal refusals, TPN initiated. CURRENT DIET: Full liquid ENTERAL NUTRITION RECOMMENDATIONS: Consult RD for non-oral TF recs if part of POC and appropriate w/ BIPAP PARENTERAL NUTRITION RECOMMENDATIONS: D/AA Rate: 72 IL Rate: 8 Total Rate: 80 Volume: 1920 % Dextrose: 14 % AA: 5.0 Energy (kcals/kg): 1552 Protein (g/kg protein): 86 Nonprotein KCALS: 1207 GIR (mg CHO/kg/min): 2.7 % Fat KCALS: 24.7 NPC: N Ratio: 88:1 TPN Comment: REC TPN IF NGT FEEDS NOT APPROPRIATE DUE TO BIPAP USAGE -> PT W/ MINIMAL INTAKE/REFUSAL X 23 DAYS, UNABLE TO TOLERATE ORAL DIET, DESATS QUICKLY WHEN OFF BIPAP -> D14% AA 5.0% @ 72ml/hr + 20% IL @ 8ml/hr: total of 80ml/hr, all 3:1 -> Start TPN at LOW RATE of 20ml/hr x 6hrs, advance slowly as ky to goal PT AT HIGH RISK FOR REFEEDING SYNDROME, monitor lytes daily -> W/ TPN, rec adding long acting insulin (FBGs 200s-500s) ADDITIONAL RECOMMENDATIONS: 1) PT w/ prolonged poor PO/refusals: DAY 23 -> Rec TPN if NGT feeds not appropriate w/ BIPAP, rec as above 2) Check HgA1C ----> 7.2 3) Monitor BGs closely w/ Solumedrol: BGs 200's-500's prior to TPN -> REC LONG ACTING INSULIN W/ TPN 4) Monitor LFTs closely w/ TPN: already elev prior to TPN 5) Monitor lytes daily, replete as needed: high risk for refeeding w/ TPN
--- NOTE | 2020-07-14 12:28 | Pulmonology Progress Note ---
Subjective ROS Limited/Unobtainable: Yes Interval Events: seen in SDU Constitutional: Denies: fever HEENT: Repors: no symptoms Respiratory: Reports: no symptoms Cardiovascular: Reports: no symptoms Gastrointestinal/Abdominal: Reports: no symptoms Allergies: Coded Allergies: No Known Allergies (Unverified , 06/18/20) Objective Last 24 Hour Vital Signs Date Time Temp Pulse Resp B/P (MAP) Pulse Ox O2 Delivery O2 Flow Rate FiO2 07/14/20 11:53 97.6 86 32 144/96 (112) 97 07/14/20 11:52 Bi-pap 07/14/20 11:52 90 07/14/20 11:10 59 41 95 90 07/14/20 08:37 55 07/14/20 08:00 98.1 74 20 117/83 (94) 98 07/14/20 08:00 90 07/14/20 08:00 Bi-pap 07/14/20 07:10 57 38 96 90 07/14/20 04:00 82 07/14/20 04:00 98.0 66 20 122/68 (86) 100 07/14/20 04:00 Bi-pap 07/14/20 04:00 90 07/14/20 02:53 81 38 95 90 07/14/20 00:00 Bi-pap 07/14/20 00:00 98.4 61 16 137/85 (102) 100 07/14/20 00:00 80 07/14/20 00:00 80 07/13/20 22:49 79 32 96 80 07/13/20 20:00 80 07/13/20 20:00 98.7 80 20 160/90 (113) 100 07/13/20 20:00 Bi-pap 07/13/20 20:00 75 07/13/20 19:47 83 27 98 80 07/13/20 16:00 76 07/13/20 16:00 Bi-pap 07/13/20 16:00 80 07/13/20 15:25 76 18 100 80 07/13/20 15:00 83 20 136/72 (93) 100 07/13/20 14:00 73 21 132/67 (88) 100 07/13/20 13:00 98.4 65 17 131/78 (95) 100 Intake and Output 07/13/20 07/14/20 19:00 07:00 Intake Total 900 ml Output Total 450 ml 800 ml Balance 450 ml -800 ml IV Total 900 ml Output Urine Total 450 ml 800 ml # Bowel Movements 4 3 General Appearance: no acute distress HEENT: normocephalic Respiratory: chest wall non-tender, lungs clear Cardiovascular: normal peripheral pulses Abdomen: normal bowel sounds Extremities: no cyanosis Laboratory Tests 07/14/20 11:47: POC Whole Blood Glucose 248H Current Medications Medications (Trade) Dose Ordered Sig/Yoselin Route PRN Reason Start Time Stop Time Status Last Admin Dose Admin Acetaminophen (Tylenol) 650 mg Q6H PRN ORAL Temp >100.5 07/03/20 16:30 08/02/20 16:29 Acetaminophen (Tylenol) 650 mg Q6H PRN ORAL For Pain 06/18/20 22:00 07/18/20 21:59 07/03/20 20:59 Acetaminophen (Tylenol) 650 mg Q6H PRN RECTAL Temp >100.5 07/04/20 20:45 08/03/20 20:44 07/04/20 21:07 Chlorhexidine Gluconate (Kalie-Hex 2%) 1 applic DAILY@2000 TOPIC 07/13/20 20:00 10/11/20 19:59 07/13/20 20:00 Dextrose 1,000 ml @ 0 mls/hr Q24H PRN IV PN interrupted or unavailable 07/11/20 12:15 08/10/20 12:14 Dextrose (Dextrose 50%) 25 ml Q30M PRN IV Hypoglycemia 07/11/20 12:15 10/09/20 12:14 Dextrose (Dextrose 50%) 50 ml Q30M PRN IV Hypoglycemia 07/11/20 12:15 10/09/20 12:14 Enoxaparin Sodium (Lovenox) 60 mg EVERY 12 HOURS SUBQ 07/05/20 10:30 10/03/20 10:29 07/14/20 08:55 Famotidine (Pepcid I.v.) 40 mg DAILY IVP 07/08/20 09:00 08/01/20 20:59 07/14/20 08:53 Fat Emulsion Intravenous 192 ml/Amino Acids/ Electrolytes/ Dextrose 1,920 ml @ 80 mls/hr Q24H IV 07/13/20 20:00 08/12/20 19:59 07/13/20 20:00 Folic Acid (Folate) 3 mg DAILY ORAL 07/12/20 11:30 08/11/20 11:29 07/14/20 08:54 Insulin Aspart (NovoLOG) BEFORE MEALS AND HS SUBQ 07/08/20 16:30 10/06/20 16:29 07/14/20 11:51 Methylprednisolone Sodium Succinate (Solu-MEDROL) 40 mg EVERY 12 HOURS IVP 07/13/20 12:00 10/11/20 11:59 07/14/20 08:53 Ondansetron HCl (Zofran) 4 mg Q6H PRN IVP Nausea & Vomiting 06/18/20 22:00 07/18/20 21:59 Assessment/Plan Assessment/Plan 1. COVID-19 pneumonia. - s/p decadron (06/22-06/28) - s/p broad-spectrum antibiotics - s/p remdesivir - CXR 06/26 better - CXR 07/12 no significant change - on Solu-Medrol per ID (07/13-) 2. Respiratory failure. - weaned his FiO2 from 100% to 90% yesterday, saturating at 94-96%; failed weaning with NRB yesterday - will attempt weaning again with NRB or high flow - will attempt course of steroids (solumedrol) 3. Pulmonary embolism. - s/p heparin - Back on Lovenox as he cannot tolerate PO meds 4. Troponin leak. - 2D echo showed LV EF 65% 5. Malnutrition - s/p PICC line and TPN (07/13) 6. Leukocytosis - now resolved seen in [facility] Attempted venti-mask.. unsuccessful The care for this patient was discussed with my supervising physician Time spent for this case was approximately 31 minutes Jhonny Vences Jul 14, 2020 12:28
--- NOTE | 2020-07-14 12:35 | Infectious Diseases Prog Note ---
Assessment/Plan Assessment/Plan IMPRESSION: 1. leukocytosis. 2. COVID-19 pneumonia. 3. Pulmonary emboli. 4. Hypoxic respiratory failure, 5. Elevated troponin. RECOMMENDATION: Finished Remdesivir course Continue Solumedrol Subjective ROS Limited/Unobtainable: Yes Allergies: Coded Allergies: No Known Allergies (Unverified , 06/18/20) Objective Last 24 Hour Vital Signs Date Time Temp Pulse Resp B/P (MAP) Pulse Ox O2 Delivery O2 Flow Rate FiO2 07/14/20 11:53 97.6 86 32 144/96 (112) 97 07/14/20 11:52 Bi-pap 07/14/20 11:52 90 07/14/20 11:10 59 41 95 90 07/14/20 08:37 55 07/14/20 08:00 98.1 74 20 117/83 (94) 98 07/14/20 08:00 90 07/14/20 08:00 Bi-pap 07/14/20 07:10 57 38 96 90 07/14/20 04:00 82 07/14/20 04:00 98.0 66 20 122/68 (86) 100 07/14/20 04:00 Bi-pap 07/14/20 04:00 90 07/14/20 02:53 81 38 95 90 07/14/20 00:00 Bi-pap 07/14/20 00:00 98.4 61 16 137/85 (102) 100 07/14/20 00:00 80 07/14/20 00:00 80 07/13/20 22:49 79 32 96 80 07/13/20 20:00 80 07/13/20 20:00 98.7 80 20 160/90 (113) 100 07/13/20 20:00 Bi-pap 07/13/20 20:00 75 07/13/20 19:47 83 27 98 80 07/13/20 16:00 76 07/13/20 16:00 Bi-pap 07/13/20 16:00 80 07/13/20 15:25 76 18 100 80 07/13/20 15:00 83 20 136/72 (93) 100 07/13/20 14:00 73 21 132/67 (88) 100 07/13/20 13:00 98.4 65 17 131/78 (95) 100 Height (Feet): 5 Height (Inches): 4.00 Weight (Pounds): 146 HEENT: mucous membranes moist Respiratory/Chest: other - on BIPAP, FIO2=90% Cardiovascular: normal rate Abdomen: soft, non tender Extremities: no edema Neurologic/Psychiatric: other - sleeping Laboratory Tests Test 07/14/20 11:47 POC Whole Blood Glucose 248 MG/DL (74-106) H Current Medications Medications (Trade) Dose Ordered Sig/Yoselin Route PRN Reason Start Time Stop Time Status Last Admin Dose Admin Acetaminophen (Tylenol) 650 mg Q6H PRN ORAL Temp >100.5 07/03/20 16:30 08/02/20 16:29 Acetaminophen (Tylenol) 650 mg Q6H PRN ORAL For Pain 06/18/20 22:00 07/18/20 21:59 07/03/20 20:59 Acetaminophen (Tylenol) 650 mg Q6H PRN RECTAL Temp >100.5 07/04/20 20:45 08/03/20 20:44 07/04/20 21:07 Chlorhexidine Gluconate (Kalie-Hex 2%) 1 applic DAILY@2000 TOPIC 07/13/20 20:00 10/11/20 19:59 07/13/20 20:00 Dextrose 1,000 ml @ 0 mls/hr Q24H PRN IV PN interrupted or unavailable 07/11/20 12:15 08/10/20 12:14 Dextrose (Dextrose 50%) 25 ml Q30M PRN IV Hypoglycemia 07/11/20 12:15 10/09/20 12:14 Dextrose (Dextrose 50%) 50 ml Q30M PRN IV Hypoglycemia 07/11/20 12:15 10/09/20 12:14 Enoxaparin Sodium (Lovenox) 60 mg EVERY 12 HOURS SUBQ 07/05/20 10:30 10/03/20 10:29 07/14/20 08:55 Famotidine (Pepcid I.v.) 40 mg DAILY IVP 07/08/20 09:00 08/01/20 20:59 07/14/20 08:53 Fat Emulsion Intravenous 192 ml/Amino Acids/ Electrolytes/ Dextrose 1,920 ml @ 80 mls/hr Q24H IV 07/13/20 20:00 08/12/20 19:59 07/13/20 20:00 Folic Acid (Folate) 3 mg DAILY ORAL 07/12/20 11:30 08/11/20 11:29 07/14/20 08:54 Insulin Aspart (NovoLOG) BEFORE MEALS AND HS SUBQ 07/08/20 16:30 10/06/20 16:29 07/14/20 11:51 Methylprednisolone Sodium Succinate (Solu-MEDROL) 40 mg EVERY 12 HOURS IVP 07/13/20 12:00 10/11/20 11:59 07/14/20 08:53 Ondansetron HCl (Zofran) 4 mg Q6H PRN IVP Nausea & Vomiting 06/18/20 22:00 07/18/20 21:59 Arturo Dudley MD Jul 14, 2020 12:35
--- NOTE | 2020-07-14 12:39 | NUR ---
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
--- NOTE | 2020-07-14 14:55 | NUR ---
NURSE NOTES:Bed bath given and linens changed.
[2020-07-14 16:00] VITALS: BP 136/85
--- NOTE | 2020-07-14 19:19 | NUR ---
NURSE NOTES: Received report from TIMOTHY Kaur, Pt in bed asleep but arousable with voice and called by name. A/Ox 2 Iranian speaking-able to make needs known, in no apparent acute cardiac or respiratory distress noted. Pt appears to be tolerating current BIPAP settings 15/12 fio2 90% saturating @95%. Iv site on R hand # 22 SL, Picc line on L upper arm double lumen running Intralipds @80cc/hr . Both intact, patent and flushed well. With Urine pouch draining color yellow urine via gravity. Safety measures in place, bed in lowest position and locked. Bed alarmed activated .
--- NOTE | 2020-07-14 19:23 | NUR ---
NURSE HAND-OFF REPORT: Important Events on Shift: Patient Status: stable on BIPAP, desaturates quickly when BIPAP removed. Diet: Pending Orders: Pending Results/Labs: Pending MD notification: Latest Vital Signs: Temperature 97.8 , Pulse 80 , B/P 136 /85 , Respiratory Rate 32 , O2 SAT 99 , Bi-pap, O2 Flow Rate 40.0 . Vital Sign Comment: EKG Rhythm: Sinus Rhythm Rhythm change?: N MD Notified?: MD Response: Latest Mcdowell Fall Score: 50 Fall Risk: High Risk Safety Measures: Call light Within Reach, Bed Alarm Zone 2, Side Rails Side Rails x3, Bed position Low and Locked. Fall Precautions: Door Sign Report given to TIMOTHY Castañeda.
[2020-07-14 20:00] VITALS: BP 134/67
[2020-07-14] MEDS: Dyna-Hex 2% Top Sol 2oz TOPIC SCH (20:44)
[2020-07-14] MEDS: Solu-MEDROL 125mg Inj IVP SCH (20:44)
[2020-07-14] MEDS: FAT EMULSION 20% IV SCH (20:47)
[2020-07-14] MEDS: TPN IV SCH (20:47)
--- NOTE | 2020-07-14 22:28 | NUR ---
NURSE NOTES: Pt bipap was off and cardiac rhythm converted to afib rvr hr of 158 bpm did ekg showed sinus tachy hr of 105 bpm. @2307m pt converted to NSR with hr of 89 bpm. Will continue to monitor.
--- NOTE | 2020-07-14 23:07 | NUR ---
NURSE NOTES: Turned and repositioned pt. Requested rt to change Bipap mask and tubings because it keep falling off. Will continue to monitor pt and plan of care.
[2020-07-15] VITALS: BP 112/86
--- NOTE | 2020-07-15 00:24 | Cardiology Progress Note ---
Subjective DATE OF SERVICE: Jul 14, 2020 Remains on bipap support, requiring high flow oxygen - still unable to taper. Monitor: sinus rhythm with rare ectopics 2D Echo - normal LVEF, no signs RV strain, normal PA pressure of 30mm Hg CXR (07/12) bilateral infiltrates unchanged; possible component of edema ABG (07/12) 7.48/34/57 Objective Last 24 Hour Vital Signs Date Time Temp Pulse Resp B/P (MAP) Pulse Ox O2 Delivery O2 Flow Rate FiO2 07/15/20 00:00 90 07/14/20 22:40 102 31 96 90 07/14/20 20:00 90 07/14/20 20:00 Bi-pap 07/14/20 20:00 98.4 69 31 134/67 (89) 100 07/14/20 19:33 89 07/14/20 19:17 80 32 99 90 07/14/20 16:06 62 07/14/20 16:00 Bi-pap 07/14/20 16:00 97.8 56 15 136/85 (102) 100 07/14/20 16:00 90 07/14/20 15:10 64 39 98 90 07/14/20 12:00 85 07/14/20 11:53 97.6 86 32 144/96 (112) 97 07/14/20 11:52 Bi-pap 07/14/20 11:52 90 07/14/20 11:10 59 41 95 90 07/14/20 08:37 55 07/14/20 08:00 98.1 74 20 117/83 (94) 98 07/14/20 08:00 90 07/14/20 08:00 Bi-pap 07/14/20 07:10 57 38 96 90 07/14/20 04:00 82 07/14/20 04:00 98.0 66 20 122/68 (86) 100 07/14/20 04:00 Bi-pap 07/14/20 04:00 90 07/14/20 02:53 81 38 95 90 ROS: unchanged from 06/19/20 HEENT: other - bipap RHYTHM: ST LUNGS: bilat. 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 Diuresis for negative fluid balance - advanced; trend BNP Full anticoagulation Monitor for sustained atrial arrhythmias Replace lytes as needed Insulin cov'g by Aden Meléndez MD Jul 15, 2020 00:24
--- NOTE | 2020-07-15 03:37 | NUR ---
NURSE NOTES: Bed bath given, changed gown and lines. Did quick oral care, patient tolerated but desat really quick. Had 1 bm noted.
[2020-07-15 04:00] VITALS: BP 145/97
[2020-07-15 04:34] LABS: HEMATOCRIT 38.3 % (42.0-52.0); HEMOGLOBIN 12.7 G/DL (14.2-18.0); MEAN CORPUSCULAR VOLUME 92 FL (80-99); PLATELET COUNT 204 K/UL (150-450); RED BLOOD COUNT 4.18 M/UL (4.70-6.10); RED CELL DISTRIBUTION WIDTH 12.2 % (11.6-14.8); WHITE BLOOD COUNT 12.5 K/UL (4.8-10.8)
[2020-07-15 04:52] LABS: ALANINE AMINOTRANSFERASE 90 U/L (12-78); ALBUMIN 1.9 G/DL (3.4-5.0); ALBUMIN/GLOBULIN RATIO 0.5 (1.0-2.7); ALKALINE PHOSPHATASE 127 U/L (46-116); ANION GAP 7 mmol/L (5-15); ASPARTATE AMINO TRANSFERASE 19 U/L (15-37); BILIRUBIN,TOTAL 0.4 MG/DL (0.2-1.0); BLOOD UREA NITROGEN 24 mg/dL (7-18); CALCIUM 8.3 MG/DL (8.5-10.1); CARBON DIOXIDE 25 MMOL/L (21-32); CHLORIDE 107 MMOL/L (98-107); CHOLESTEROL 219 MG/DL (< 200); CREATININE 0.6 MG/DL (0.55-1.30); HDL CHOLESTEROL 30 MG/DL (40-60); PHOSPHORUS 3.1 MG/DL (2.5-4.9); POTASSIUM 4.1 MMOL/L (3.5-5.1); SODIUM 139 MMOL/L (136-145); TRIGLYCERIDES 210 MG/DL (30-150)
[2020-07-15] MEDS: NovoLOG Insulin Flexpen SUBQ SCH ×4 (05:34→20:33)
--- NOTE | 2020-07-15 07:10 | NUR ---
Received report from TIMOTHY Christiansen. Pt is lying in bed awake, A/O x 1-2. On BiPap tolerating the following setting of /6, FiO2 90% saturating 98-100%. Vital signs are stable. IV on R hand 22 G and L wrist 22 G are intact and patent. DTI in nose due to Bipap noted. Recent labs, medications and MD orders reviewed. Bed is locked and in lowest position, bed alarm on, call light is with the pt. Fall and aspiration precautions done. Will continue to monitor pt. Will continue with the plan of care.
--- NOTE | 2020-07-15 07:37 | NUR ---
NURSE HAND-OFF REPORT: Important Events on Shift: Stable Patient Status: Stable Diet: TPN Pending Orders: Pending Results/Labs: Pending MD notification: Latest Vital Signs: Temperature 97.7 , Pulse 69 , B/P 145 /97 , Respiratory Rate 25 , O2 SAT 100 , Bi-pap, O2 Flow Rate 40.0 . Vital Sign Comment: Stable EKG Rhythm: Sinus Rhythm Rhythm change?: N MD Notified?: MD Response: Latest Mcdowell Fall Score: 50 Fall Risk: High Risk Safety Measures: Call light Within Reach, Bed Alarm Zone 2, Side Rails Side Rails x3, Bed position Low and Locked. Fall Precautions: Door Sign Report given to TIMOTHY Del Rosario.
[2020-07-15 08:00] VITALS: BP 138/106
[2020-07-15] MEDS: Solu-MEDROL 125mg Inj IVP SCH (08:22)
[2020-07-15] MEDS: Enoxaparin 60mg Inj SUBQ SCH ×2 (08:25→20:07)
[2020-07-15] MEDS ORDERED: Solu-MEDROL 40mg Inj IVP SCH ×2 (09:00→21:00)
--- NOTE | 2020-07-15 11:02 | Infectious Diseases Prog Note ---
Assessment/Plan Assessment/Plan antibiotics : none A 1. COVID 19 pneumonia on bipap 90 % Fi O2 with 98 % saturation s/p remdesivir 2. pulmonary embolism 3. respiratory failure P 1. continue solumedrol decrease dose 2. continue isolation Subjective ROS Limited/Unobtainable: Yes Allergies: Coded Allergies: No Known Allergies (Unverified , 06/18/20) Objective Last 24 Hour Vital Signs Date Time Temp Pulse Resp B/P (MAP) Pulse Ox O2 Delivery O2 Flow Rate FiO2 07/15/20 08:00 90 07/15/20 08:00 97.7 78 24 138/106 (117) 98 07/15/20 08:00 Bi-pap 07/15/20 07:44 102 07/15/20 06:55 88 24 100 90 07/15/20 04:00 90 07/15/20 04:00 Bi-pap 07/15/20 04:00 97.7 69 25 145/97 (113) 100 07/15/20 03:30 67 21 99 90 07/15/20 03:11 77 07/15/20 00:00 90 07/15/20 00:00 Bi-pap 07/15/20 00:00 97.3 66 24 112/86 (95) 100 07/14/20 23:07 89 07/14/20 22:40 102 31 96 90 07/14/20 20:00 90 07/14/20 20:00 Bi-pap 07/14/20 20:00 98.4 69 31 134/67 (89) 100 07/14/20 19:33 89 07/14/20 19:17 80 32 99 90 07/14/20 16:06 62 07/14/20 16:00 Bi-pap 07/14/20 16:00 97.8 56 15 136/85 (102) 100 07/14/20 16:00 90 07/14/20 15:10 64 39 98 90 07/14/20 12:00 85 07/14/20 11:53 97.6 86 32 144/96 (112) 97 07/14/20 11:52 Bi-pap 07/14/20 11:52 90 07/14/20 11:10 59 41 95 90 Height (Feet): 5 Height (Inches): 4.00 Weight (Pounds): 146 Laboratory Tests Test 07/14/20 11:47 07/14/20 16:59 07/14/20 21:06 07/15/20 03:10 POC Whole Blood Glucose 248 MG/DL (74-106) H 322 MG/DL (74-106) H 325 MG/DL (74-106) H White Blood Count 12.5 K/UL (4.8-10.8) H Red Blood Count 4.18 M/UL (4.70-6.10) L Hemoglobin 12.7 G/DL (14.2-18.0) L Hematocrit 38.3 % (42.0-52.0) L Mean Corpuscular Volume 92 FL (80-99) Mean Corpuscular Hemoglobin 30.4 PG (27.0-31.0) Mean Corpuscular Hemoglobin Concent 33.2 G/DL (32.0-36.0) Red Cell Distribution Width 12.2 % (11.6-14.8) Platelet Count 204 K/UL (150-450) Mean Platelet Volume 8.3 FL (6.5-10.1) Neutrophils (%) (Auto) % (45.0-75.0) Lymphocytes (%) (Auto) % (20.0-45.0) Monocytes (%) (Auto) % (1.0-10.0) Eosinophils (%) (Auto) % (0.0-3.0) Basophils (%) (Auto) % (0.0-2.0) Differential Total Cells Counted 100 Neutrophils % (Manual) 96 % (45-75) H Lymphocytes % (Manual) 1 % (20-45) L Monocytes % (Manual) 3 % (1-10) Eosinophils % (Manual) 0 % (0-3) Basophils % (Manual) 0 % (0-2) Band Neutrophils 0 % (0-8) Platelet Estimate Adequate Platelet Morphology Normal Red Blood Cell Morphology Normal Sodium Level 139 MMOL/L (136-145) Potassium Level 4.1 MMOL/L (3.5-5.1) Chloride Level 107 MMOL/L (98-107) Carbon Dioxide Level 25 MMOL/L (21-32) Anion Gap 7 mmol/L (5-15) Blood Urea Nitrogen 24 mg/dL (7-18) H Creatinine 0.6 MG/DL (0.55-1.30) Estimat Glomerular Filtration Rate > 60 mL/min (>60) Glucose Level 365 MG/DL (74-106) H Uric Acid 2.1 MG/DL (2.6-7.2) L Calcium Level 8.3 MG/DL (8.5-10.1) L Phosphorus Level 3.1 MG/DL (2.5-4.9) Magnesium Level 2.1 MG/DL (1.8-2.4) Total Bilirubin 0.4 MG/DL (0.2-1.0) Aspartate Amino Transf (AST/SGOT) 19 U/L (15-37) Alanine Aminotransferase (ALT/SGPT) 90 U/L (12-78) H Alkaline Phosphatase 127 U/L (46-116) H C-Reactive Protein, Quantitative 1.7 mg/dL (0.00-0.90) H Pro-B-Type Natriuretic Peptide 390 pg/mL (0-125) H Total Protein 6.0 G/DL (6.4-8.2) L Albumin 1.9 G/DL (3.4-5.0) L Globulin 4.1 g/dL Albumin/Globulin Ratio 0.5 (1.0-2.7) L Triglycerides Level 210 MG/DL (30-150) H Cholesterol Level 219 MG/DL (< 200) H LDL Cholesterol 154 mg/dL (<100) H HDL Cholesterol 30 MG/DL (40-60) L Cholesterol/HDL Ratio 7.3 (3.3-4.4) H Test 07/15/20 05:26 07/15/20 10:46 POC Whole Blood Glucose 360 MG/DL (74-106) H 296 MG/DL (74-106) H Current Medications Medications (Trade) Dose Ordered Sig/Yoselin Route PRN Reason Start Time Stop Time Status Last Admin Dose Admin Acetaminophen (Tylenol) 650 mg Q6H PRN ORAL Temp >100.5 07/03/20 16:30 08/02/20 16:29 Acetaminophen (Tylenol) 650 mg Q6H PRN ORAL For Pain 06/18/20 22:00 07/18/20 21:59 07/03/20 20:59 Acetaminophen (Tylenol) 650 mg Q6H PRN RECTAL Temp >100.5 07/04/20 20:45 08/03/20 20:44 1/9/21 21:07 Chlorhexidine Gluconate (Kalie-Hex 2%) 1 applic DAILY@2000 TOPIC 07/13/20 20:00 10/11/20 19:59 07/14/20 20:44 Dextrose 1,000 ml @ 0 mls/hr Q24H PRN IV PN interrupted or unavailable 07/11/20 12:15 08/10/20 12:14 Dextrose (Dextrose 50%) 25 ml Q30M PRN IV Hypoglycemia 07/11/20 12:15 10/09/20 12:14 Dextrose (Dextrose 50%) 50 ml Q30M PRN IV Hypoglycemia 07/11/20 12:15 10/09/20 12:14 Enoxaparin Sodium (Lovenox) 60 mg EVERY 12 HOURS SUBQ 07/05/20 10:30 10/03/20 10:29 07/15/20 08:25 Famotidine (Pepcid I.v.) 40 mg DAILY IVP 07/08/20 09:00 08/01/20 20:59 07/15/20 08:21 Fat Emulsion Intravenous 192 ml/Amino Acids/ Electrolytes/ Dextrose 1,920 ml @ 80 mls/hr Q24H IV 07/13/20 20:00 08/12/20 19:59 07/14/20 20:47 Folic Acid (Folate) 3 mg DAILY ORAL 07/12/20 11:30 08/11/20 11:29 07/15/20 08:23 Furosemide (Lasix) 40 mg DAILY IV 07/15/20 00:30 08/14/20 00:29 07/15/20 08:20 Insulin Aspart (NovoLOG) BEFORE MEALS AND HS SUBQ 07/08/20 16:30 10/06/20 16:29 07/15/20 10:48 Methylprednisolone Sodium Succinate (Solu-MEDROL) 40 mg EVERY 12 HOURS IVP 07/15/20 21:00 10/13/20 20:59 Ondansetron HCl (Zofran) 4 mg Q6H PRN IVP Nausea & Vomiting 06/18/20 22:00 07/18/20 21:59 Swapna Falk MD Jul 15, 2020 11:02
--- NOTE | 2020-07-15 11:23 | NUR ---
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
[2020-07-15 12:00] VITALS: BP 119/96
--- NOTE | 2020-07-15 13:28 | Pulmonology Progress Note ---
Subjective ROS Limited/Unobtainable: Yes Interval Events: seen in SDU Constitutional: Denies: fever HEENT: Repors: no symptoms Respiratory: Reports: no symptoms Cardiovascular: Reports: no symptoms Gastrointestinal/Abdominal: Reports: no symptoms Allergies: Coded Allergies: No Known Allergies (Unverified , 06/18/20) Objective Last 24 Hour Vital Signs Date Time Temp Pulse Resp B/P (MAP) Pulse Ox O2 Delivery O2 Flow Rate FiO2 07/15/20 12:00 97.9 102 24 119/96 (104) 100 07/15/20 12:00 90 07/15/20 12:00 Bi-pap 07/15/20 11:38 120 07/15/20 11:15 87 27 98 90 07/15/20 08:00 90 07/15/20 08:00 97.7 78 24 138/106 (117) 98 07/15/20 08:00 Bi-pap 07/15/20 07:44 102 07/15/20 06:55 88 24 100 90 07/15/20 04:00 90 07/15/20 04:00 Bi-pap 07/15/20 04:00 97.7 69 25 145/97 (113) 100 07/15/20 03:30 67 21 99 90 07/15/20 03:11 77 07/15/20 00:00 90 07/15/20 00:00 Bi-pap 07/15/20 00:00 97.3 66 24 112/86 (95) 100 07/14/20 23:07 89 07/14/20 22:40 102 31 96 90 07/14/20 20:00 90 07/14/20 20:00 Bi-pap 07/14/20 20:00 98.4 69 31 134/67 (89) 100 07/14/20 19:33 89 07/14/20 19:17 80 32 99 90 07/14/20 16:06 62 07/14/20 16:00 Bi-pap 07/14/20 16:00 97.8 56 15 136/85 (102) 100 07/14/20 16:00 90 07/14/20 15:10 64 39 98 90 Intake and Output 07/14/20 07/15/20 19:00 07:00 Intake Total 880 ml 497 ml Output Total 550 ml 1100 ml Balance 330 ml -603 ml IV Total 880 ml 497 ml Output Urine Total 550 ml 1100 ml # Bowel Movements 2 General Appearance: no acute distress HEENT: normocephalic Respiratory: chest wall non-tender, lungs clear Cardiovascular: normal peripheral pulses Abdomen: normal bowel sounds Extremities: no cyanosis Laboratory Tests 07/14/20 16:59: POC Whole Blood Glucose 322H 07/14/20 21:06: POC Whole Blood Glucose 325H 07/15/20 03:10: White Blood Count 12.5H, Red Blood Count 4.18L, Hemoglobin 12.7L, Hematocrit 38.3L, Mean Corpuscular Volume 92, Mean Corpuscular Hemoglobin 30.4, Mean Corpuscular Hemoglobin Concent 33.2, Red Cell Distribution Width 12.2, Platelet Count 204, Mean Platelet Volume 8.3, Neutrophils (%) (Auto) , Lymphocytes (%) (Auto) , Monocytes (%) (Auto) , Eosinophils (%) (Auto) , Basophils (%) (Auto) , Differential Total Cells Counted 100, Neutrophils % (Manual) 96H, Lymphocytes % (Manual) 1L, Monocytes % (Manual) 3, Eosinophils % (Manual) 0, Basophils % (Manual) 0, Band Neutrophils 0, Platelet Estimate Adequate, Platelet Morphology Normal, Red Blood Cell Morphology Normal, Sodium Level 139, Potassium Level 4.1, Chloride Level 107, Carbon Dioxide Level 25, Anion Gap 7, Blood Urea Nitrogen 24H, Creatinine 0.6, Estimat Glomerular Filtration Rate > 60, Glucose Level 365H , Uric Acid 2.1L, Calcium Level 8.3L, Phosphorus Level 3.1, Magnesium Level 2.1, Total Bilirubin 0.4, Aspartate Amino Transf (AST/SGOT) 19, Alanine Aminotransferase (ALT/SGPT) 90H, Alkaline Phosphatase 127H, C-Reactive Protein, Quantitative 1.7H, Pro-B-Type Natriuretic Peptide 390H, Total Protein 6.0L, Albumin 1.9L, Globulin 4.1, Albumin/Globulin Ratio 0.5L, Triglycerides Level 210H, Cholesterol Level 219H, LDL Cholesterol 154H, HDL Cholesterol 30L, Cholesterol/HDL Ratio 7.3H 07/15/20 05:26: POC Whole Blood Glucose 360H 07/15/20 10:46: POC Whole Blood Glucose 296H Current Medications Medications (Trade) Dose Ordered Sig/Yoselin Route PRN Reason Start Time Stop Time Status Last Admin Dose Admin Acetaminophen (Tylenol) 650 mg Q6H PRN ORAL Temp >100.5 07/03/20 16:30 08/02/20 16:29 Acetaminophen (Tylenol) 650 mg Q6H PRN ORAL For Pain 06/18/20 22:00 07/18/20 21:59 07/03/20 20:59 Acetaminophen (Tylenol) 650 mg Q6H PRN RECTAL Temp >100.5 07/04/20 20:45 08/03/20 20:44 07/04/20 21:07 Chlorhexidine Gluconate (Kalie-Hex 2%) 1 applic DAILY@2000 TOPIC 07/13/20 20:00 10/11/20 19:59 07/14/20 20:44 Dextrose 1,000 ml @ 0 mls/hr Q24H PRN IV PN interrupted or unavailable 07/11/20 12:15 08/10/20 12:14 Dextrose (Dextrose 50%) 25 ml Q30M PRN IV Hypoglycemia 07/11/20 12:15 10/09/20 12:14 Dextrose (Dextrose 50%) 50 ml Q30M PRN IV Hypoglycemia 07/11/20 12:15 10/09/20 12:14 Enoxaparin Sodium (Lovenox) 60 mg EVERY 12 HOURS SUBQ 07/05/20 10:30 10/03/20 10:29 07/15/20 08:25 Famotidine (Pepcid I.v.) 40 mg DAILY IVP 07/08/20 09:00 08/01/20 20:59 07/15/20 08:21 Fat Emulsion Intravenous 192 ml/Amino Acids/ Electrolytes/ Dextrose 1,920 ml @ 80 mls/hr Q24H IV 07/13/20 20:00 08/12/20 19:59 07/14/20 20:47 Folic Acid (Folate) 3 mg DAILY ORAL 07/12/20 11:30 08/11/20 11:29 07/15/20 08:23 Furosemide (Lasix) 40 mg DAILY IV 07/15/20 00:30 08/14/20 00:29 07/15/20 08:20 Insulin Aspart (NovoLOG) BEFORE MEALS AND HS SUBQ 07/08/20 16:30 10/06/20 16:29 07/15/20 10:48 Methylprednisolone Sodium Succinate (Solu-MEDROL) 40 mg DAILY IVP 07/16/20 09:00 10/14/20 08:59 Ondansetron HCl (Zofran) 4 mg Q6H PRN IVP Nausea & Vomiting 06/18/20 22:00 07/18/20 21:59 Assessment/Plan Assessment/Plan 1. COVID-19 pneumonia. - s/p decadron (06/22-06/28) - s/p broad-spectrum antibiotics - s/p remdesivir - CXR 06/26 better - CXR 07/12 no significant change - on Solu-Medrol per ID (07/13-) 2. Respiratory failure. - weaned his FiO2 from 100% to 90% yesterday, saturating at 94-96%; failed weaning with NRB - will attempt weaning again with lower FiO2 - will attempt course of steroids (solumedrol) 3. Pulmonary embolism. - s/p heparin - Back on Lovenox as he cannot tolerate PO meds 4. Troponin leak. - 2D echo showed LV EF 65% 5. Malnutrition - s/p PICC line and TPN (07/13) 6. Leukocytosis - now resolved seen in [facility] Attempted venti-mask.. unsuccessful The care for this patient was discussed with my supervising physician Time spent for this case was approximately 31 minutes Jhonny Vences Jul 15, 2020 13:28
--- NOTE | 2020-07-15 13:56 | Nephrology Progress Note ---
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 Labs reviewed. Continue TPN as is. Adjust insulin for blood sugar control. Per orders. July 14: Patient started on TPN since last night. We will continue to monitor electrolytes and renal parameters and adjust TPN composition as needed. Discussed with pharmacy. July 13: Due for PICC line today and initiation of TPN. Low magnesium addressed. Continue per current management. July 12: Remains full code. Remains on BiPAP. Labs reviewed. Low potassium and phosphorus addressed. Awaiting initiation of TPN. Subjective ROS Limited/Unobtainable: Yes Objective Objective Last 24 Hour Vital Signs Date Time Temp Pulse Resp B/P (MAP) Pulse Ox O2 Delivery O2 Flow Rate FiO2 07/15/20 12:00 97.9 102 24 119/96 (104) 100 07/15/20 12:00 90 07/15/20 12:00 Bi-pap 07/15/20 11:38 120 07/15/20 11:15 87 27 98 90 07/15/20 08:00 90 07/15/20 08:00 97.7 78 24 138/106 (117) 98 07/15/20 08:00 Bi-pap 07/15/20 07:44 102 07/15/20 06:55 88 24 100 90 07/15/20 04:00 90 07/15/20 04:00 Bi-pap 07/15/20 04:00 97.7 69 25 145/97 (113) 100 07/15/20 03:30 67 21 99 90 07/15/20 03:11 77 07/15/20 00:00 90 07/15/20 00:00 Bi-pap 07/15/20 00:00 97.3 66 24 112/86 (95) 100 07/14/20 23:07 89 07/14/20 22:40 102 31 96 90 07/14/20 20:00 90 07/14/20 20:00 Bi-pap 07/14/20 20:00 98.4 69 31 134/67 (89) 100 07/14/20 19:33 89 07/14/20 19:17 80 32 99 90 07/14/20 16:06 62 07/14/20 16:00 Bi-pap 07/14/20 16:00 97.8 56 15 136/85 (102) 100 07/14/20 16:00 90 07/14/20 15:10 64 39 98 90 Intake and Output 07/14/20 07/15/20 19:00 07:00 Intake Total 880 ml 497 ml Output Total 550 ml 1100 ml Balance 330 ml -603 ml IV Total 880 ml 497 ml Output Urine Total 550 ml 1100 ml # Bowel Movements 2 Current Medications Medications (Trade) Dose Ordered Sig/Yoselin Route PRN Reason Start Time Stop Time Status Last Admin Dose Admin Acetaminophen (Tylenol) 650 mg Q6H PRN ORAL Temp >100.5 07/03/20 16:30 08/02/20 16:29 Acetaminophen (Tylenol) 650 mg Q6H PRN ORAL For Pain 06/18/20 22:00 07/18/20 21:59 07/03/20 20:59 Acetaminophen (Tylenol) 650 mg Q6H PRN RECTAL Temp >100.5 07/04/20 20:45 08/03/20 20:44 07/04/20 21:07 Chlorhexidine Gluconate (Kalie-Hex 2%) 1 applic DAILY@2000 TOPIC 07/13/20 20:00 10/11/20 19:59 07/14/20 20:44 Dextrose 1,000 ml @ 0 mls/hr Q24H PRN IV PN interrupted or unavailable 07/11/20 12:15 08/10/20 12:14 Dextrose (Dextrose 50%) 25 ml Q30M PRN IV Hypoglycemia 07/11/20 12:15 10/09/20 12:14 Dextrose (Dextrose 50%) 50 ml Q30M PRN IV Hypoglycemia 07/11/20 12:15 10/09/20 12:14 Enoxaparin Sodium (Lovenox) 60 mg EVERY 12 HOURS SUBQ 07/05/20 10:30 10/03/20 10:29 07/15/20 08:25 Famotidine (Pepcid I.v.) 40 mg DAILY IVP 07/08/20 09:00 08/01/20 20:59 07/15/20 08:21 Fat Emulsion Intravenous 192 ml/Amino Acids/ Electrolytes/ Dextrose 1,920 ml @ 80 mls/hr Q24H IV 07/13/20 20:00 08/12/20 19:59 07/14/20 20:47 Folic Acid (Folate) 3 mg DAILY ORAL 07/12/20 11:30 08/11/20 11:29 07/15/20 08:23 Furosemide (Lasix) 40 mg DAILY IV 07/15/20 00:30 08/14/20 00:29 07/15/20 08:20 Insulin Aspart (NovoLOG) BEFORE MEALS AND HS SUBQ 07/08/20 16:30 10/06/20 16:29 07/15/20 10:48 Methylprednisolone Sodium Succinate (Solu-MEDROL) 40 mg DAILY IVP 07/16/20 09:00 10/14/20 08:59 Ondansetron HCl (Zofran) 4 mg Q6H PRN IVP Nausea & Vomiting 06/18/20 22:00 07/18/20 21:59 Laboratory Tests 07/14/20 16:59: POC Whole Blood Glucose 322H 07/14/20 21:06: POC Whole Blood Glucose 325H 07/15/20 03:10: White Blood Count 12.5H, Red Blood Count 4.18L, Hemoglobin 12.7L, Hematocrit 38.3L, Mean Corpuscular Volume 92, Mean Corpuscular Hemoglobin 30.4, Mean Corpuscular Hemoglobin Concent 33.2, Red Cell Distribution Width 12.2, Platelet Count 204, Mean Platelet Volume 8.3, Neutrophils (%) (Auto) , Lymphocytes (%) (Auto) , Monocytes (%) (Auto) , Eosinophils (%) (Auto) , Basophils (%) (Auto) , Differential Total Cells Counted 100, Neutrophils % (Manual) 96H, Lymphocytes % (Manual) 1L, Monocytes % (Manual) 3, Eosinophils % (Manual) 0, Basophils % (Manual) 0, Band Neutrophils 0, Platelet Estimate Adequate, Platelet Morphology Normal, Red Blood Cell Morphology Normal, Sodium Level 139, Potassium Level 4.1, Chloride Level 107, Carbon Dioxide Level 25, Anion Gap 7, Blood Urea Nitrogen 24H, Creatinine 0.6, Estimat Glomerular Filtration Rate > 60, Glucose Level 365H , Uric Acid 2.1L, Calcium Level 8.3L, Phosphorus Level 3.1, Magnesium Level 2.1, Total Bilirubin 0.4, Aspartate Amino Transf (AST/SGOT) 19, Alanine Aminotransferase (ALT/SGPT) 90H, Alkaline Phosphatase 127H, C-Reactive Protein, Quantitative 1.7H, Pro-B-Type Natriuretic Peptide 390H, Total Protein 6.0L, Albumin 1.9L, Globulin 4.1, Albumin/Globulin Ratio 0.5L, Triglycerides Level 210H, Cholesterol Level 219H, LDL Cholesterol 154H, HDL Cholesterol 30L, Cholesterol/HDL Ratio 7.3H 07/15/20 05:26: POC Whole Blood Glucose 360H 07/15/20 10:46: POC Whole Blood Glucose 296H Height (Feet): 5 Height (Inches): 4.00 Weight (Pounds): 146 General Appearance: mild distress EENT: other - Remains on BiPAP Cardiovascular: tachycardia Respiratory/Chest: decreased breath sounds Abdomen: distended Jimmy Saul MD Jul 15, 2020 13:56
[2020-07-15] MEDS ORDERED: Levemir Flexpen SUBQ ONE (15:00)
--- NOTE | 2020-07-15 15:00 | NUR ---
NURSE NOTES: Sponge bath given. linens and gown changed. Pt is turned and repositioned. Pt had bowel movement. Pt desaturates on supine position. Head has to be elevated at all times. Will continue to monitor pt. Will continue with the plan of care.
[2020-07-15 16:00] VITALS: BP 133/89
--- NOTE | 2020-07-15 19:16 | NUR ---
NURSE NOTES: Received report from TIMOTHY Del Rosario. Pt is A/Ox 2 and Palestinian speaking with simple Turkmen. Pt appears to be tolerating current BIPAP settings 22/6 fio2 90% saturating @95%. No SOB or acute distress. Pt has IV site on RH 22G and PICC on AFSANEH double lumen running Intralipids @80cc/hr. Pt has a urine pouch draining color yellow urine via gravity. Safety measures in place, bed in lowest position with 2 side rails and locked. Bed alarmed activated. Will continue plan of care.
--- NOTE | 2020-07-15 19:20 | NUR ---
NURSE HAND-OFF REPORT: Important Events on Shift:N Patient Status: Full code Diet: TPN @ 80cc/hr Pending Orders: N Pending Results/Labs:N Pending MD notification:N Latest Vital Signs: Temperature 97.5 , Pulse 105 , B/P 133 /89 , Respiratory Rate 26 , O2 SAT 100 , Bi-pap, O2 Flow Rate 40.0 . Vital Sign Comment: stable EKG Rhythm: Sinus Tachycardia Rhythm change?: N MD Notified?: Y -Dr Leung covering for Dr. Kailee MAY Response: Latest Mcdowell Fall Score: 50 Fall Risk: High Risk Safety Measures: Call light Within Reach, Bed Alarm Zone 2, Side Rails Side Rails x3, Bed position Low and Locked. Fall Precautions: Door Sign Report given to will Brody RN.
[2020-07-15 20:00] VITALS: BP 146/77
[2020-07-15] MEDS: Dyna-Hex 2% Top Sol 2oz TOPIC SCH (20:06)
[2020-07-15] MEDS: Levemir Flexpen SUBQ SCH (20:07)
[2020-07-15] MEDS: TPN IV SCH (20:11)
[2020-07-15] MEDS: FAT EMULSION 20% IV SCH (20:11)
--- NOTE | 2020-07-15 21:00 | NUR ---
NURSE NOTES: Ot given CHG bath and all linens changed. Oral care given to pt and tolerated well but did desaturate quickly.
--- NOTE | 2020-07-15 22:01 | Cardiology Progress Note ---
Subjective DATE OF SERVICE: Jul 15, 2019 Remains on bipap support, requiring high flow oxygen - still unable to taper. Monitor: sinus rhythm with tachycardia and rare ectopics 2D Echo - normal LVEF, no signs RV strain, normal PA pressure of 30mm Hg CXR (07/12) bilateral infiltrates unchanged; possible component of edema ABG (07/12) 7.48/34/57 Objective Last 24 Hour Vital Signs Date Time Temp Pulse Resp B/P (MAP) Pulse Ox O2 Delivery O2 Flow Rate FiO2 07/15/20 19:10 100 27 99 90 07/15/20 16:00 90 07/15/20 16:00 97.5 105 26 133/89 (104) 100 07/15/20 16:00 Bi-pap 07/15/20 16:00 110 07/15/20 15:30 99 33 100 90 07/15/20 12:00 97.9 102 24 119/96 (104) 100 07/15/20 12:00 90 07/15/20 12:00 Bi-pap 07/15/20 11:38 120 07/15/20 11:15 87 27 98 90 07/15/20 08:00 90 07/15/20 08:00 97.7 78 24 138/106 (117) 98 07/15/20 08:00 Bi-pap 07/15/20 07:44 102 07/15/20 06:55 88 24 100 90 07/15/20 04:00 90 07/15/20 04:00 Bi-pap 07/15/20 04:00 97.7 69 25 145/97 (113) 100 07/15/20 03:30 67 21 99 90 07/15/20 03:11 77 07/15/20 00:00 90 07/15/20 00:00 Bi-pap 07/15/20 00:00 97.3 66 24 112/86 (95) 100 07/14/20 23:07 89 07/14/20 22:40 102 31 96 90 ROS: unchanged from 06/19/20 HEENT: other - bipap RHYTHM: ST LUNGS: bilat. rhonchi and rales CARDIAC: normal rate, regular rhythm, normal S1 and S2 ABDOMEN: normal bowel sounds, soft, distended EXTREMITIES: normal range of motion, non-tender, trace edema Laboratory Tests Test 07/15/20 03:10 07/15/20 05:26 1/20/21 10:46 07/15/20 15:40 White Blood Count 12.5 K/UL (4.8-10.8) H Red Blood Count 4.18 M/UL (4.70-6.10) L Hemoglobin 12.7 G/DL (14.2-18.0) L Hematocrit 38.3 % (42.0-52.0) L Mean Corpuscular Volume 92 FL (80-99) Mean Corpuscular Hemoglobin 30.4 PG (27.0-31.0) Mean Corpuscular Hemoglobin Concent 33.2 G/DL (32.0-36.0) Red Cell Distribution Width 12.2 % (11.6-14.8) Platelet Count 204 K/UL (150-450) Mean Platelet Volume 8.3 FL (6.5-10.1) Neutrophils (%) (Auto) % (45.0-75.0) Lymphocytes (%) (Auto) % (20.0-45.0) Monocytes (%) (Auto) % (1.0-10.0) Eosinophils (%) (Auto) % (0.0-3.0) Basophils (%) (Auto) % (0.0-2.0) Differential Total Cells Counted 100 Neutrophils % (Manual) 96 % (45-75) H Lymphocytes % (Manual) 1 % (20-45) L Monocytes % (Manual) 3 % (1-10) Eosinophils % (Manual) 0 % (0-3) Basophils % (Manual) 0 % (0-2) Band Neutrophils 0 % (0-8) Platelet Estimate Adequate Platelet Morphology Normal Red Blood Cell Morphology Normal Sodium Level 139 MMOL/L (136-145) Potassium Level 4.1 MMOL/L (3.5-5.1) Chloride Level 107 MMOL/L (98-107) Carbon Dioxide Level 25 MMOL/L (21-32) Anion Gap 7 mmol/L (5-15) Blood Urea Nitrogen 24 mg/dL (7-18) H Creatinine 0.6 MG/DL (0.55-1.30) Estimat Glomerular Filtration Rate > 60 mL/min (>60) Glucose Level 365 MG/DL (74-106) H Uric Acid 2.1 MG/DL (2.6-7.2) L Calcium Level 8.3 MG/DL (8.5-10.1) L Phosphorus Level 3.1 MG/DL (2.5-4.9) Magnesium Level 2.1 MG/DL (1.8-2.4) Total Bilirubin 0.4 MG/DL (0.2-1.0) Aspartate Amino Transf (AST/SGOT) 19 U/L (15-37) Alanine Aminotransferase (ALT/SGPT) 90 U/L (12-78) H Alkaline Phosphatase 127 U/L (46-116) H C-Reactive Protein, Quantitative 1.7 mg/dL (0.00-0.90) H Pro-B-Type Natriuretic Peptide 390 pg/mL (0-125) H Total Protein 6.0 G/DL (6.4-8.2) L Albumin 1.9 G/DL (3.4-5.0) L Globulin 4.1 g/dL Albumin/Globulin Ratio 0.5 (1.0-2.7) L Triglycerides Level 210 MG/DL (30-150) H Cholesterol Level 219 MG/DL (< 200) H LDL Cholesterol 154 mg/dL (<100) H HDL Cholesterol 30 MG/DL (40-60) L Cholesterol/HDL Ratio 7.3 (3.3-4.4) H POC Whole Blood Glucose 360 MG/DL (74-106) H 296 MG/DL (74-106) H 369 MG/DL (74-106) H Test 07/15/20 18:38 07/15/20 20:15 POC Whole Blood Glucose 342 MG/DL (74-106) H Pending Assessment/Plan Assessment/Plan COVID 19 PNA Hypoxia Ac pulmonary embolism Acute coronary syndrome/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 Sinus tachycardia Remains Critical and Guarded O2 suppl with taper as able. Diuresis for negative fluid balance; trend BNP Full anticoagulation Monitor for sustained atrial arrhythmias Replace lytes as needed Insulin cov'g by Aden Meléndez MD Jul 15, 2020 22:01
[2020-07-16] VITALS: BP 117/80
--- NOTE | 2020-07-16 03:06 | NUR ---
NURSE NOTES: Pt changed and oral care provided. Pt tolerated but did desaturate.
[2020-07-16 04:00] VITALS: BP 116/79
[2020-07-16] MEDS: NovoLOG Insulin Flexpen SUBQ SCH ×4 (05:18→20:24)
[2020-07-16 05:35] LABS: HEMATOCRIT 37.4 % (42.0-52.0); HEMOGLOBIN 12.5 G/DL (14.2-18.0); MEAN CORPUSCULAR VOLUME 92 FL (80-99); PLATELET COUNT 264 K/UL (150-450); RED BLOOD COUNT 4.04 M/UL (4.70-6.10); RED CELL DISTRIBUTION WIDTH 12.8 % (11.6-14.8); WHITE BLOOD COUNT 14.6 K/UL (4.8-10.8)
[2020-07-16 05:51] LABS: ALANINE AMINOTRANSFERASE 70 U/L (12-78); ALBUMIN/GLOBULIN RATIO 0.5 (1.0-2.7); ALKALINE PHOSPHATASE 129 U/L (46-116); ANION GAP 7 mmol/L (5-15); ASPARTATE AMINO TRANSFERASE 17 U/L (15-37); BILIRUBIN,TOTAL 0.4 MG/DL (0.2-1.0); BLOOD UREA NITROGEN 33 mg/dL (7-18); CALCIUM 8.9 MG/DL (8.5-10.1); CARBON DIOXIDE 29 MMOL/L (21-32); CHLORIDE 111 MMOL/L (98-107); CREATININE 0.6 MG/DL (0.55-1.30); PHOSPHORUS 3.2 MG/DL (2.5-4.9); POTASSIUM 3.6 MMOL/L (3.5-5.1); SODIUM 147 MMOL/L (136-145)
--- NOTE | 2020-07-16 07:12 | NUR ---
NURSE HAND-OFF REPORT: Important Events on Shift: Pt tolerated oral care Patient Status: Stable Diet: NPO Pending Orders: Pending Results/Labs: Pending MD notification: Latest Vital Signs: Temperature 97.7 , Pulse 98 , B/P 116 /79 , Respiratory Rate 19 , O2 SAT 100 , Bi-pap, O2 Flow Rate 40.0 . Vital Sign Comment: EKG Rhythm: Sinus Rhythm Rhythm change?: N MD Notified?: Y -Dr Leung covering for Dr. Kailee MAY Response: Latest Mcdowell Fall Score: 50 Fall Risk: High Risk Safety Measures: Call light Within Reach, Bed Alarm Zone 2, Side Rails Side Rails x3, Bed position Low and Locked. Fall Precautions: Door Sign Report given to Harleen.
--- NOTE | 2020-07-16 07:13 | NUR ---
NURSE NOTES: Received patient in bed awake. Bipap in place, no acute distress. IV lines intact and patent, running TPN. Urinary pouch in place, draining yellow colored urine. HOB elevated. Bed locked in low position. Call light within reach. Will continue plan of care.
[2020-07-16 08:00] VITALS: BP_SYST 116; BP_DIAS 78; BP_DIAS 8
[2020-07-16] MEDS: Enoxaparin 60mg Inj SUBQ SCH ×2 (09:17→20:25)
[2020-07-16] MEDS: Solu-MEDROL 40mg Inj IVP SCH (09:19)
[2020-07-16] MEDS: Levemir Flexpen SUBQ SCH ×2 (09:20→20:19)
--- NOTE | 2020-07-16 11:29 | Infectious Diseases Prog Note ---
Assessment/Plan Assessment/Plan IMPRESSION: 1. leukocytosis. 2. COVID-19 pneumonia. 3. Pulmonary emboli. 4. Hypoxic respiratory failure, 5. Elevated troponin. RECOMMENDATION: Finished Remdesivir course Continue Solumedrol tapering Subjective ROS Limited/Unobtainable: Yes Constitutional: Denies: fever Allergies: Coded Allergies: No Known Allergies (Unverified , 06/18/20) Objective Last 24 Hour Vital Signs Date Time Temp Pulse Resp B/P (MAP) Pulse Ox O2 Delivery O2 Flow Rate FiO2 07/16/20 08:00 97.5 92 18 116/8 (44) 99 07/16/20 07:43 74 07/16/20 04:00 97.7 98 19 116/79 (91) 100 07/16/20 04:00 72 07/16/20 04:00 90 07/16/20 04:00 Bi-pap 07/16/20 03:05 74 24 100 90 07/16/20 00:00 Bi-pap 07/16/20 00:00 97.9 91 24 117/80 (92) 100 07/16/20 00:00 99 07/15/20 23:15 102 31 100 90 07/15/20 20:16 70 07/15/20 20:00 Bi-pap 07/15/20 20:00 97.5 98 26 146/77 (100) 98 07/15/20 20:00 90 07/15/20 19:10 100 27 99 90 07/15/20 16:00 90 07/15/20 16:00 97.5 105 26 133/89 (104) 100 07/15/20 16:00 Bi-pap 07/15/20 16:00 110 07/15/20 15:30 99 33 100 90 07/15/20 12:00 97.9 102 24 119/96 (104) 100 07/15/20 12:00 90 07/15/20 12:00 Bi-pap 07/15/20 11:38 120 Height (Feet): 5 Height (Inches): 4.00 Weight (Pounds): 146 HEENT: mucous membranes moist Respiratory/Chest: other - on BIPAP, FIo2=90% Cardiovascular: normal rate, other - left arm PICC line Abdomen: soft, non tender Extremities: no edema Neurologic/Psychiatric: alert, responsive Laboratory Tests Test 07/15/20 15:40 07/15/20 18:38 07/15/20 20:15 07/16/20 03:27 POC Whole Blood Glucose 369 MG/DL (74-106) H 342 MG/DL (74-106) H Pending White Blood Count 14.6 K/UL (4.8-10.8) H Red Blood Count 4.04 M/UL (4.70-6.10) L Hemoglobin 12.5 G/DL (14.2-18.0) L Hematocrit 37.4 % (42.0-52.0) L Mean Corpuscular Volume 92 FL (80-99) Mean Corpuscular Hemoglobin 30.9 PG (27.0-31.0) Mean Corpuscular Hemoglobin Concent 33.5 G/DL (32.0-36.0) Red Cell Distribution Width 12.8 % (11.6-14.8) Platelet Count 264 K/UL (150-450) Mean Platelet Volume 7.7 FL (6.5-10.1) Neutrophils (%) (Auto) % (45.0-75.0) Lymphocytes (%) (Auto) % (20.0-45.0) Monocytes (%) (Auto) % (1.0-10.0) Eosinophils (%) (Auto) % (0.0-3.0) Basophils (%) (Auto) % (0.0-2.0) Differential Total Cells Counted 100 Neutrophils % (Manual) 90 % (45-75) H Lymphocytes % (Manual) 6 % (20-45) L Monocytes % (Manual) 4 % (1-10) Eosinophils % (Manual) 0 % (0-3) Basophils % (Manual) 0 % (0-2) Band Neutrophils 0 % (0-8) Platelet Estimate Adequate Platelet Morphology Normal Hypochromasia 1+ Sodium Level 147 MMOL/L (136-145) H Potassium Level 3.6 MMOL/L (3.5-5.1) Chloride Level 111 MMOL/L (98-107) H Carbon Dioxide Level 29 MMOL/L (21-32) Anion Gap 7 mmol/L (5-15) Blood Urea Nitrogen 33 mg/dL (7-18) H Creatinine 0.6 MG/DL (0.55-1.30) Estimat Glomerular Filtration Rate > 60 mL/min (>60) Glucose Level 277 MG/DL (74-106) H Uric Acid 2.2 MG/DL (2.6-7.2) L Calcium Level 8.9 MG/DL (8.5-10.1) Phosphorus Level 3.2 MG/DL (2.5-4.9) Magnesium Level 1.9 MG/DL (1.8-2.4) Total Bilirubin 0.4 MG/DL (0.2-1.0) Aspartate Amino Transf (AST/SGOT) 17 U/L (15-37) Alanine Aminotransferase (ALT/SGPT) 70 U/L (12-78) Alkaline Phosphatase 129 U/L (46-116) H Total Protein 5.9 G/DL (6.4-8.2) L Albumin 2.0 G/DL (3.4-5.0) L Globulin 3.9 g/dL Albumin/Globulin Ratio 0.5 (1.0-2.7) L Test 07/16/20 05:09 POC Whole Blood Glucose 280 MG/DL (74-106) H Current Medications Medications (Trade) Dose Ordered Sig/Yoselin Route PRN Reason Start Time Stop Time Status Last Admin Dose Admin Acetaminophen (Tylenol) 650 mg Q6H PRN ORAL Temp >100.5 07/03/20 16:30 08/02/20 16:29 Acetaminophen (Tylenol) 650 mg Q6H PRN ORAL For Pain 06/18/20 22:00 07/18/20 21:59 07/03/20 20:59 Acetaminophen (Tylenol) 650 mg Q6H PRN RECTAL Temp >100.5 07/04/20 20:45 08/03/20 20:44 07/04/20 21:07 Chlorhexidine Gluconate (Kalie-Hex 2%) 1 applic DAILY@2000 TOPIC 07/13/20 20:00 10/11/20 19:59 07/15/20 20:06 Dextrose 1,000 ml @ 0 mls/hr Q24H PRN IV PN interrupted or unavailable 07/11/20 12:15 08/10/20 12:14 Dextrose (Dextrose 50%) 25 ml Q30M PRN IV Hypoglycemia 07/11/20 12:15 10/09/20 12:14 Dextrose (Dextrose 50%) 50 ml Q30M PRN IV Hypoglycemia 07/11/20 12:15 10/09/20 12:14 Enoxaparin Sodium (Lovenox) 60 mg EVERY 12 HOURS SUBQ 07/05/20 10:30 10/03/20 10:29 07/16/20 09:17 Famotidine (Pepcid I.v.) 40 mg DAILY IVP 07/08/20 09:00 08/01/20 20:59 07/16/20 09:18 Fat Emulsion Intravenous 192 ml/Amino Acids/ Electrolytes/ Dextrose 1,920 ml @ 80 mls/hr Q24H IV 07/13/20 20:00 08/12/20 19:59 07/15/20 20:11 Folic Acid (Folate) 3 mg DAILY ORAL 07/12/20 11:30 08/11/20 11:29 07/16/20 09:18 Furosemide (Lasix) 40 mg DAILY IV 07/15/20 00:30 08/14/20 00:29 07/16/20 09:19 Insulin Aspart (NovoLOG) BEFORE MEALS AND HS SUBQ 07/08/20 16:30 10/06/20 16:29 07/16/20 05:18 Insulin Detemir (Levemir) 10 units Q12HR SUBQ 07/15/20 21:00 10/13/20 20:59 07/16/20 09:20 Methylprednisolone Sodium Succinate (Solu-MEDROL) 40 mg DAILY IVP 07/16/20 09:00 10/14/20 08:59 07/16/20 09:19 Ondansetron HCl (Zofran) 4 mg Q6H PRN IVP Nausea & Vomiting 06/18/20 22:00 07/18/20 21:59 Arturo Dudley MD Jul 16, 2020 11:29
--- NOTE | 2020-07-16 11:33 | NUR ---
RD ASSESSMENT & RECOMMENDATIONS SEE CARE ACTIVITY FOR COMPLETE ASSESSMENT DAILY ESTIMATED NEEDS: Needs based on pulmonary 62kg 25-30 kcals/kg 5304-3869 total kcals 1.25-1.5 g protein/kg 77-93 g total protein 25-30 mL/kg 7199-3040 total fluid mLs NUTRITION DIAGNOSIS: Predicted poor po intake r/t respiratory status/ bipap use as evidenced by pt is covid ++, on bipap, desats when off device, diet now advanced from clear liquid diet to full liquid w/ prolonged poor PO/ meal refusals, now on TPN. CURRENT DIET: Full liquid PO DIET RECOMMENDATIONS: rec YE[employer]ER eval for diet texture-> Regular diet ENTERAL NUTRITION RECOMMENDATIONS: Consult RD for non-oral TF recs if part of POC and appropriate w/ BIPAP PARENTERAL NUTRITION RECOMMENDATIONS: D/AA Rate: 72 IL Rate: 8 Total Rate: 80 Volume: 1920 % Dextrose: 14 % AA: 5.0 Energy (kcals/kg): 1552 Protein (g/kg protein): 86 Nonprotein KCALS: 1207 GIR (mg CHO/kg/min): 2.7 % Fat KCALS: 24.7 NPC: N Ratio: 88:1 TPN Comment: Maintain TPN IF NGT FEEDS AND ORAL DIET NOT APPROPRIATE DUE TO BIPAP USAGE -> UNABLE TO TOLERATE ORAL DIET, DESATS QUICKLY WHEN OFF BIPAP -> D14% AA 5.0% @ 72ml/hr + 20% IL @ 8ml/hr: total of 80ml/hr, all 3:1 ADDITIONAL RECOMMENDATIONS: 1) PT w/ prolonged poor PO/refusals -> now on TPN 2) Check HgA1C ----> 7.2 3) Monitor BGs closely w/ Solumedrol + TPN : BGs 200's-500's prior to TPN, monitor need to increase Levemir 4) Monitor LFTs closely w/ TPN: already elev prior to TPN 5) Monitor lytes, replete as needed 6) Monitor hydration status, need for additional fluids: elev Na + BUN
[2020-07-16 12:00] VITALS: BP 109/72
--- NOTE | 2020-07-16 12:17 | Pulmonology Progress Note ---
Subjective ROS Limited/Unobtainable: Yes Interval Events: seen in SDU Constitutional: Denies: fever HEENT: Repors: no symptoms Respiratory: Reports: no symptoms Cardiovascular: Reports: no symptoms Gastrointestinal/Abdominal: Reports: no symptoms Allergies: Coded Allergies: No Known Allergies (Unverified , 06/18/20) Objective Last 24 Hour Vital Signs Date Time Temp Pulse Resp B/P (MAP) Pulse Ox O2 Delivery O2 Flow Rate FiO2 07/16/20 08:00 97.5 92 18 116/8 (44) 99 07/16/20 07:43 74 07/16/20 04:00 97.7 98 19 116/79 (91) 100 07/16/20 04:00 72 07/16/20 04:00 90 07/16/20 04:00 Bi-pap 07/16/20 03:05 74 24 100 90 07/16/20 00:00 Bi-pap 07/16/20 00:00 97.9 91 24 117/80 (92) 100 07/16/20 00:00 99 07/15/20 23:15 102 31 100 90 07/15/20 20:16 70 07/15/20 20:00 Bi-pap 07/15/20 20:00 97.5 98 26 146/77 (100) 98 07/15/20 20:00 90 07/15/20 19:10 100 27 99 90 07/15/20 16:00 90 07/15/20 16:00 97.5 105 26 133/89 (104) 100 07/15/20 16:00 Bi-pap 07/15/20 16:00 110 07/15/20 15:30 99 33 100 90 Intake and Output 07/15/20 07/16/20 19:00 07:00 Output Total 1800 ml 1200 ml Balance -1800 ml -1200 ml Output Urine Total 1800 ml 1200 ml # Bowel Movements 2 General Appearance: no acute distress HEENT: normocephalic Respiratory: chest wall non-tender, lungs clear Cardiovascular: normal peripheral pulses Abdomen: normal bowel sounds Extremities: no cyanosis Laboratory Tests 07/15/20 15:40: POC Whole Blood Glucose 369H 07/15/20 18:38: POC Whole Blood Glucose 342H 07/15/20 20:15: POC Whole Blood Glucose [Pending] 07/16/20 03:27: White Blood Count 14.6H, Red Blood Count 4.04L, Hemoglobin 12.5L, Hematocrit 37.4L, Mean Corpuscular Volume 92, Mean Corpuscular Hemoglobin 30.9, Mean Corpuscular Hemoglobin Concent 33.5, Red Cell Distribution Width 12.8, Platelet Count 264, Mean Platelet Volume 7.7, Neutrophils (%) (Auto) , Lymphocytes (%) (Auto) , Monocytes (%) (Auto) , Eosinophils (%) (Auto) , Basophils (%) (Auto) , Differential Total Cells Counted 100, Neutrophils % (Manual) 90H, Lymphocytes % (Manual) 6L, Monocytes % (Manual) 4, Eosinophils % (Manual) 0, Basophils % (Manual) 0, Band Neutrophils 0, Platelet Estimate Adequate, Platelet Morphology Normal, Hypochromasia 1+, Sodium Level 147H, Potassium Level 3.6, Chloride Level 111H, Carbon Dioxide Level 29, Anion Gap 7, Blood Urea Nitrogen 33H, Creatinine 0.6, Estimat Glomerular Filtration Rate > 60, Glucose Level 277H, Uric Acid 2.2L, Calcium Level 8.9, Phosphorus Level 3.2, Magnesium Level 1.9, Total Bilirubin 0.4, Aspartate Amino Transf (AST/SGOT) 17, Alanine Aminotransferase (ALT/SGPT) 70, Alkaline Phosphatase 129H, Total Protein 5.9L, Albumin 2.0L, Globulin 3.9, Albumin/Globulin Ratio 0.5L 07/16/20 05:09: POC Whole Blood Glucose 280H 07/16/20 11:30: POC Whole Blood Glucose 356H 07/16/20 11:39: D-Dimer [Pending] Current Medications Medications (Trade) Dose Ordered Sig/Yoselin Route PRN Reason Start Time Stop Time Status Last Admin Dose Admin Acetaminophen (Tylenol) 650 mg Q6H PRN ORAL Temp >100.5 07/03/20 16:30 08/02/20 16:29 Acetaminophen (Tylenol) 650 mg Q6H PRN ORAL For Pain 06/18/20 22:00 07/18/20 21:59 07/03/20 20:59 Acetaminophen (Tylenol) 650 mg Q6H PRN RECTAL Temp >100.5 07/04/20 20:45 08/03/20 20:44 07/04/20 21:07 Chlorhexidine Gluconate (Kalie-Hex 2%) 1 applic DAILY@2000 TOPIC 07/13/20 20:00 10/11/20 19:59 07/15/20 20:06 Dextrose 1,000 ml @ 0 mls/hr Q24H PRN IV PN interrupted or unavailable 07/11/20 12:15 08/10/20 12:14 Dextrose (Dextrose 50%) 25 ml Q30M PRN IV Hypoglycemia 07/11/20 12:15 10/09/20 12:14 Dextrose (Dextrose 50%) 50 ml Q30M PRN IV Hypoglycemia 07/11/20 12:15 10/09/20 12:14 Enoxaparin Sodium (Lovenox) 60 mg EVERY 12 HOURS SUBQ 07/05/20 10:30 10/03/20 10:29 07/16/20 09:17 Famotidine (Pepcid I.v.) 40 mg DAILY IVP 07/08/20 09:00 08/01/20 20:59 07/16/20 09:18 Fat Emulsion Intravenous 192 ml/Amino Acids/ Electrolytes/ Dextrose 1,920 ml @ 80 mls/hr Q24H IV 07/13/20 20:00 08/12/20 19:59 07/15/20 20:11 Folic Acid (Folate) 3 mg DAILY ORAL 07/12/20 11:30 08/11/20 11:29 07/16/20 09:18 Furosemide (Lasix) 40 mg DAILY IV 07/15/20 00:30 08/14/20 00:29 07/16/20 09:19 Insulin Aspart (NovoLOG) BEFORE MEALS AND HS SUBQ 07/08/20 16:30 10/06/20 16:29 07/16/20 11:51 Insulin Detemir (Levemir) 10 units Q12HR SUBQ 07/15/20 21:00 10/13/20 20:59 07/16/20 09:20 Methylprednisolone Sodium Succinate (Solu-MEDROL) 40 mg DAILY IVP 07/16/20 09:00 10/14/20 08:59 07/16/20 09:19 Ondansetron HCl (Zofran) 4 mg Q6H PRN IVP Nausea & Vomiting 06/18/20 22:00 07/18/20 21:59 Assessment/Plan Assessment/Plan 1. COVID-19 pneumonia. - s/p decadron (06/22-06/28) - s/p broad-spectrum antibiotics - s/p remdesivir - CXR 06/26 better - CXR 07/12 no significant change - on Solu-Medrol per ID (07/13-) 2. Respiratory failure. - weaned his FiO2 from 100% to 90% yesterday, saturating at 94-96%; failed weaning with NRB;; will attempt again - will attempt course of steroids (solumedrol) 3. Pulmonary embolism. - s/p heparin - Back on Lovenox as he cannot tolerate PO meds - will recheck D-Dimer 4. Troponin leak. - 2D echo showed LV EF 65% 5. Malnutrition - s/p PICC line and TPN (07/13) 6. Leukocytosis - now resolved seen in [facility] Attempted venti-mask.. unsuccessful The care for this patient was discussed with my supervising physician Time spent for this case was approximately 31 minutes Jhonny Vences Jul 16, 2020 12:17
[2020-07-16] MEDS ORDERED: Levemir Flexpen SUBQ SCH (12:30)
--- NOTE | 2020-07-16 12:31 | Nephrology Progress Note ---
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 Labs reviewed. Sodium slightly elevated. Levemir dose increased for better blood sugar control. Discussed with pharmacy. Continue to monitor electrolytes. July 15: On TPN. Labs reviewed. Continue TPN as is. Adjust insulin for blood sugar control. Per orders. July 14: Patient started on TPN since last night. We will continue to monitor electrolytes and renal parameters and adjust TPN composition as needed. Discussed with pharmacy. July 13: Due for PICC line today and initiation of TPN. Low magnesium addressed. Continue per current management. July 12: Remains full code. Remains on BiPAP. Labs reviewed. Low potassium and phosphorus addressed. Awaiting initiation of TPN. Subjective ROS Limited/Unobtainable: Yes Objective Objective Last 24 Hour Vital Signs Date Time Temp Pulse Resp B/P (MAP) Pulse Ox O2 Delivery O2 Flow Rate FiO2 07/16/20 12:00 125 07/16/20 08:00 97.5 92 18 116/8 (44) 99 07/16/20 07:43 74 07/16/20 04:00 97.7 98 19 116/79 (91) 100 07/16/20 04:00 72 07/16/20 04:00 90 07/16/20 04:00 Bi-pap 07/16/20 03:05 74 24 100 90 07/16/20 00:00 Bi-pap 07/16/20 00:00 97.9 91 24 117/80 (92) 100 07/16/20 00:00 99 07/15/20 23:15 102 31 100 90 07/15/20 20:16 70 07/15/20 20:00 Bi-pap 07/15/20 20:00 97.5 98 26 146/77 (100) 98 07/15/20 20:00 90 07/15/20 19:10 100 27 99 90 07/15/20 16:00 90 07/15/20 16:00 97.5 105 26 133/89 (104) 100 07/15/20 16:00 Bi-pap 07/15/20 16:00 110 07/15/20 15:30 99 33 100 90 Intake and Output 07/15/20 07/16/20 19:00 07:00 Output Total 1800 ml 1200 ml Balance -1800 ml -1200 ml Output Urine Total 1800 ml 1200 ml # Bowel Movements 2 Current Medications Medications (Trade) Dose Ordered Sig/Yoselin Route PRN Reason Start Time Stop Time Status Last Admin Dose Admin Acetaminophen (Tylenol) 650 mg Q6H PRN ORAL Temp >100.5 07/03/20 16:30 08/02/20 16:29 Acetaminophen (Tylenol) 650 mg Q6H PRN ORAL For Pain 06/18/20 22:00 07/18/20 21:59 07/03/20 20:59 Acetaminophen (Tylenol) 650 mg Q6H PRN RECTAL Temp >100.5 07/04/20 20:45 08/03/20 20:44 07/04/20 21:07 Chlorhexidine Gluconate (Kalie-Hex 2%) 1 applic DAILY@2000 TOPIC 07/13/20 20:00 10/11/20 19:59 07/15/20 20:06 Dextrose 1,000 ml @ 0 mls/hr Q24H PRN IV PN interrupted or unavailable 07/11/20 12:15 08/10/20 12:14 Dextrose (Dextrose 50%) 25 ml Q30M PRN IV Hypoglycemia 07/11/20 12:15 10/09/20 12:14 Dextrose (Dextrose 50%) 50 ml Q30M PRN IV Hypoglycemia 07/11/20 12:15 10/09/20 12:14 Enoxaparin Sodium (Lovenox) 60 mg EVERY 12 HOURS SUBQ 07/05/20 10:30 10/03/20 10:29 07/16/20 09:17 Famotidine (Pepcid I.v.) 40 mg DAILY IVP 07/08/20 09:00 08/01/20 20:59 07/16/20 09:18 Fat Emulsion Intravenous 192 ml/Amino Acids/ Electrolytes/ Dextrose 1,920 ml @ 80 mls/hr Q24H IV 07/13/20 20:00 08/12/20 19:59 07/15/20 20:11 Folic Acid (Folate) 3 mg DAILY ORAL 07/12/20 11:30 08/11/20 11:29 07/16/20 09:18 Furosemide (Lasix) 40 mg DAILY IV 07/15/20 00:30 08/14/20 00:29 07/16/20 09:19 Insulin Aspart (NovoLOG) BEFORE MEALS AND HS SUBQ 07/08/20 16:30 10/06/20 16:29 07/16/20 11:51 Insulin Detemir (Levemir) 15 units Q12HR SUBQ 07/16/20 21:00 10/13/20 20:59 UNV Methylprednisolone Sodium Succinate (Solu-MEDROL) 40 mg DAILY IVP 07/16/20 09:00 10/14/20 08:59 07/16/20 09:19 Ondansetron HCl (Zofran) 4 mg Q6H PRN IVP Nausea & Vomiting 06/18/20 22:00 07/18/20 21:59 Laboratory Tests 07/15/20 15:40: POC Whole Blood Glucose 369H 07/15/20 18:38: POC Whole Blood Glucose 342H 07/15/20 20:15: POC Whole Blood Glucose [Pending] 07/16/20 03:27: White Blood Count 14.6H, Red Blood Count 4.04L, Hemoglobin 12.5L, Hematocrit 37.4L, Mean Corpuscular Volume 92, Mean Corpuscular Hemoglobin 30.9, Mean Corpuscular Hemoglobin Concent 33.5, Red Cell Distribution Width 12.8, Platelet Count 264, Mean Platelet Volume 7.7, Neutrophils (%) (Auto) , Lymphocytes (%) (Auto) , Monocytes (%) (Auto) , Eosinophils (%) (Auto) , Basophils (%) (Auto) , Differential Total Cells Counted 100, Neutrophils % (Manual) 90H, Lymphocytes % (Manual) 6L, Monocytes % (Manual) 4, Eosinophils % (Manual) 0, Basophils % (Manual) 0, Band Neutrophils 0, Platelet Estimate Adequate, Platelet Morphology Normal, Hypochromasia 1+, Sodium Level 147H, Potassium Level 3.6, Chloride Level 111H, Carbon Dioxide Level 29, Anion Gap 7, Blood Urea Nitrogen 33H, Creatinine 0.6, Estimat Glomerular Filtration Rate > 60, Glucose Level 277H, Uric Acid 2.2L, Calcium Level 8.9, Phosphorus Level 3.2, Magnesium Level 1.9, Total Bilirubin 0.4, Aspartate Amino Transf (AST/SGOT) 17, Alanine Aminotransferase (ALT/SGPT) 70, Alkaline Phosphatase 129H, Total Protein 5.9L, Albumin 2.0L, Globulin 3.9, Albumin/Globulin Ratio 0.5L 07/16/20 05:09: POC Whole Blood Glucose 280H 07/16/20 11:30: POC Whole Blood Glucose 356H 07/16/20 11:39: D-Dimer 1.34H Height (Feet): 5 Height (Inches): 4.00 Weight (Pounds): 146 General Appearance: no apparent distress EENT: other - On BiPAP Cardiovascular: normal rate Respiratory/Chest: decreased breath sounds Abdomen: distended Jimmy Saul MD Jul 16, 2020 12:31
--- NOTE | 2020-07-16 12:50 | NUR ---
NURSE NOTES: Patient sinus tachy at 120's, says he feels ok. Dr Mejias made aware, left message and awaiting response. Addendum: 07/16/20 at 1401 by Harleen Busby RN NURSE NOTES: Dr Mejias has no new orders.
--- NOTE | 2020-07-16 14:38 | NUR ---
[facility]porate ControllerObstetrics Gyn SI: Respiratory Failure, Pulmonary Emboli, COVID-19 T 98.1, HR 125, RR 29, BP 109/72 BIPAP 18/10 FiO2 80%, O2 Sat 98% WBC 14.6, NA+ 147, Glucose 356, BUN 33 IS: Pepcid IV BID lovenox sq bid Solu-medrol IVP q 12 h Insulin NovoLog sq sliding scale AC/HS D5 IV at 100ml/hr TPN @ 80cc/hr Lasix IV QD Levemir SQ Step Down Status
[2020-07-16 16:00] VITALS: BP 120/79
--- NOTE | 2020-07-16 19:36 | NUR ---
NURSE HAND-OFF REPORT: Important Events on Shift: Patient Status: alert Diet: TPN at 83cc/hr Pending Orders: Pending Results/Labs: Pending MD notification: Latest Vital Signs: Temperature 97.3 , Pulse 105 , B/P 120 /79 , Respiratory Rate 26 , O2 SAT 97 , Bi-pap, O2 Flow Rate 40.0 . Vital Sign Comment: tachycardia, new orders from Dr Mejias EKG Rhythm: Sinus Tachycardia Rhythm change?: N MD Notified?: Y -Dr. Dugan, no new orders MD Response: Latest Mcdowell Fall Score: 50 Fall Risk: High Risk Safety Measures: Call light Within Reach, Bed Alarm Zone 2, Side Rails Side Rails x3, Bed position Low and Locked. Fall Precautions: Door Sign Report given to Rhina AGUIRRE .
--- NOTE | 2020-07-16 19:40 | NUR ---
NURSE NOTES: Report received from TIMOTHY Canseco. Patient is awake on bed, alert and oriented x 2-3/ parachute crown sewer is in place, shows sinus tachycardia at this time, HR of 105. On bipap, 14/04, Fi02 95% saturating 94-95%. Patient has PICC line on left upper arm double lumen, running TPN @ 83cc/hour. Patient is covid positive, isolation protocol maintained and observed. On bedrest, bed alarm is on. Safety measures are in place, bed in lowest and locked position, side rails up x 2, call light button and bedside table within reach, instructed to call for any assistance needed.
[2020-07-16 20:00] VITALS: BP 116/80
[2020-07-16] MEDS: TPN IV SCH (20:25)
[2020-07-16] MEDS: Dyna-Hex 2% Top Sol 2oz TOPIC SCH (20:25)
[2020-07-16] MEDS: FAT EMULSION 20% IV SCH (20:25)
[2020-07-16] MEDS ORDERED: D5NS 1000ml IV ONE (20:38)
[2020-07-16] MEDS ORDERED: NS Irrig 1000ml ONE (20:47)
--- NOTE | 2020-07-16 22:10 | NUR ---
NURSE NOTES: Patient is asleep, saturating 95-97% on Bipap, no acute respiratory distress noted. Will continue plan of care.
[2020-07-17] VITALS: BP 121/77
--- NOTE | 2020-07-17 02:18 | Cardiology Progress Note ---
Subjective DATE OF SERVICE: Jul 16, 2020 Remains on bipap support, requiring high flow oxygen - still unable to taper. Left foot cold and bluish toe #3 Monitor: sinus rhythm with tachycardia and rare ectopics 2D Echo - normal LVEF, no signs RV strain, normal PA pressure of 30mm Hg CXR (07/12) bilateral infiltrates unchanged; possible component of edema ABG (07/12) 7.48/34/57 Objective Last 24 Hour Vital Signs Date Time Temp Pulse Resp B/P (MAP) Pulse Ox O2 Delivery O2 Flow Rate FiO2 07/17/20 00:00 97.9 95 23 121/77 (92) 98 07/17/20 00:00 80 07/17/20 00:00 Bi-pap 80.0 07/17/20 00:00 84 07/16/20 23:15 108 25 98 80 07/16/20 20:00 98.1 92 25 116/80 (92) 95 07/16/20 20:00 80 07/16/20 20:00 Bi-pap 80.0 07/16/20 19:26 105 07/16/20 18:55 106 26 97 80 07/16/20 16:00 Bi-pap 07/16/20 16:00 97.3 105 26 120/79 (93) 97 07/16/20 16:00 80 07/16/20 16:00 112 07/16/20 14:40 115 27 98 80 07/16/20 12:00 Bi-pap 07/16/20 12:00 98.1 120 29 109/72 (84) 98 07/16/20 12:00 125 07/16/20 12:00 80 07/16/20 11:10 123 28 98 80 07/16/20 08:00 90 07/16/20 08:00 97.5 92 18 116/78 (91) 99 07/16/20 08:00 Bi-pap 07/16/20 07:43 74 07/16/20 07:08 100 25 100 90 07/16/20 04:00 97.7 98 19 116/79 (91) 100 07/16/20 04:00 72 07/16/20 04:00 90 07/16/20 04:00 Bi-pap 07/16/20 03:05 74 24 100 90 ROS: unchanged from 06/19/20 HEENT: other - bipap RHYTHM: ST LUNGS: bilat. rhonchi and rales CARDIAC: normal rate, regular rhythm, normal S1 and S2 ABDOMEN: normal bowel sounds, soft, distended EXTREMITIES: normal range of motion, non-tender, trace edema, other - left foot cool and discolored toes Laboratory Tests Test 07/16/20 03:27 07/16/20 05:09 07/16/20 11:30 07/16/20 11:39 White Blood Count 14.6 K/UL (4.8-10.8) H Red Blood Count 4.04 M/UL (4.70-6.10) L Hemoglobin 12.5 G/DL (14.2-18.0) L Hematocrit 37.4 % (42.0-52.0) L Mean Corpuscular Volume 92 FL (80-99) Mean Corpuscular Hemoglobin 30.9 PG (27.0-31.0) Mean Corpuscular Hemoglobin Concent 33.5 G/DL (32.0-36.0) Red Cell Distribution Width 12.8 % (11.6-14.8) Platelet Count 264 K/UL (150-450) Mean Platelet Volume 7.7 FL (6.5-10.1) Neutrophils (%) (Auto) % (45.0-75.0) Lymphocytes (%) (Auto) % (20.0-45.0) Monocytes (%) (Auto) % (1.0-10.0) Eosinophils (%) (Auto) % (0.0-3.0) Basophils (%) (Auto) % (0.0-2.0) Differential Total Cells Counted 100 Neutrophils % (Manual) 90 % (45-75) H Lymphocytes % (Manual) 6 % (20-45) L Monocytes % (Manual) 4 % (1-10) Eosinophils % (Manual) 0 % (0-3) Basophils % (Manual) 0 % (0-2) Band Neutrophils 0 % (0-8) Platelet Estimate Adequate Platelet Morphology Normal Hypochromasia 1+ Sodium Level 147 MMOL/L (136-145) H Potassium Level 3.6 MMOL/L (3.5-5.1) Chloride Level 111 MMOL/L (98-107) H Carbon Dioxide Level 29 MMOL/L (21-32) Anion Gap 7 mmol/L (5-15) Blood Urea Nitrogen 33 mg/dL (7-18) H Creatinine 0.6 MG/DL (0.55-1.30) Estimat Glomerular Filtration Rate > 60 mL/min (>60) Glucose Level 277 MG/DL (74-106) H Uric Acid 2.2 MG/DL (2.6-7.2) L Calcium Level 8.9 MG/DL (8.5-10.1) Phosphorus Level 3.2 MG/DL (2.5-4.9) Magnesium Level 1.9 MG/DL (1.8-2.4) Total Bilirubin 0.4 MG/DL (0.2-1.0) Aspartate Amino Transf (AST/SGOT) 17 U/L (15-37) Alanine Aminotransferase (ALT/SGPT) 70 U/L (12-78) Alkaline Phosphatase 129 U/L (46-116) H Total Protein 5.9 G/DL (6.4-8.2) L Albumin 2.0 G/DL (3.4-5.0) L Globulin 3.9 g/dL Albumin/Globulin Ratio 0.5 (1.0-2.7) L POC Whole Blood Glucose 280 MG/DL (74-106) H 356 MG/DL (74-106) H D-Dimer 1.34 mg/L FEU (0.00-0.49) H Test 07/16/20 17:32 07/16/20 20:11 POC Whole Blood Glucose 380 MG/DL (74-106) H Pending Assessment/Plan Assessment/Plan COVID 19 PNA Hypoxia Ac pulmonary embolism Acute coronary syndrome/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 Sinus tachycardia Left LE ischemia Dehydration/hypernatremia Remains Critical and Guarded O2 suppl with taper as able. Diuresis for negative fluid balance; trend BNP Free water replacement Full anticoagulation Monitor for sustained atrial arrhythmias Replace lytes as needed Insulin cov'g by Aden Meléndez MD Jul 17, 2020 02:18
--- NOTE | 2020-07-17 02:19 | Cardiology Progress Note ---
Subjective DATE OF SERVICE: Jul 17, 2020 Remains on bipap support, requiring high flow oxygen - still unable to taper. Left foot with worsening ischemic changes Monitor: sinus rhythm with tachycardia and rare ectopics 2D Echo - normal LVEF, no signs RV strain, normal PA pressure of 30mm Hg CXR (07/12) bilateral infiltrates unchanged; possible component of edema ABG (07/12) 7.48/34/57 Objective Last 24 Hour Vital Signs Date Time Temp Pulse Resp B/P (MAP) Pulse Ox O2 Delivery O2 Flow Rate FiO2 07/17/20 00:00 97.9 95 23 121/77 (92) 98 07/17/20 00:00 80 07/17/20 00:00 Bi-pap 80.0 07/17/20 00:00 84 07/16/20 23:15 108 25 98 80 07/16/20 20:00 98.1 92 25 116/80 (92) 95 07/16/20 20:00 80 07/16/20 20:00 Bi-pap 80.0 07/16/20 19:26 105 07/16/20 18:55 106 26 97 80 07/16/20 16:00 Bi-pap 07/16/20 16:00 97.3 105 26 120/79 (93) 97 07/16/20 16:00 80 07/16/20 16:00 112 07/16/20 14:40 115 27 98 80 07/16/20 12:00 Bi-pap 07/16/20 12:00 98.1 120 29 109/72 (84) 98 07/16/20 12:00 125 07/16/20 12:00 80 07/16/20 11:10 123 28 98 80 07/16/20 08:00 90 07/16/20 08:00 97.5 92 18 116/78 (91) 99 07/16/20 08:00 Bi-pap 07/16/20 07:43 74 07/16/20 07:08 100 25 100 90 07/16/20 04:00 97.7 98 19 116/79 (91) 100 07/16/20 04:00 72 07/16/20 04:00 90 07/16/20 04:00 Bi-pap 07/16/20 03:05 74 24 100 90 ROS: unchanged from 06/19/20 HEENT: other - bipap RHYTHM: ST LUNGS: bilat. rhonchi and rales CARDIAC: normal rate, regular rhythm, normal S1 and S2 ABDOMEN: normal bowel sounds, soft, distended EXTREMITIES: normal range of motion, non-tender, trace edema, other - left toes 1,2,3 with gangrenous changes - especially evident in 3rd toe. Laboratory Tests Test 07/16/20 03:27 07/16/20 05:09 07/16/20 11:30 07/16/20 11:39 White Blood Count 14.6 K/UL (4.8-10.8) H Red Blood Count 4.04 M/UL (4.70-6.10) L Hemoglobin 12.5 G/DL (14.2-18.0) L Hematocrit 37.4 % (42.0-52.0) L Mean Corpuscular Volume 92 FL (80-99) Mean Corpuscular Hemoglobin 30.9 PG (27.0-31.0) Mean Corpuscular Hemoglobin Concent 33.5 G/DL (32.0-36.0) Red Cell Distribution Width 12.8 % (11.6-14.8) Platelet Count 264 K/UL (150-450) Mean Platelet Volume 7.7 FL (6.5-10.1) Neutrophils (%) (Auto) % (45.0-75.0) Lymphocytes (%) (Auto) % (20.0-45.0) Monocytes (%) (Auto) % (1.0-10.0) Eosinophils (%) (Auto) % (0.0-3.0) Basophils (%) (Auto) % (0.0-2.0) Differential Total Cells Counted 100 Neutrophils % (Manual) 90 % (45-75) H Lymphocytes % (Manual) 6 % (20-45) L Monocytes % (Manual) 4 % (1-10) Eosinophils % (Manual) 0 % (0-3) Basophils % (Manual) 0 % (0-2) Band Neutrophils 0 % (0-8) Platelet Estimate Adequate Platelet Morphology Normal Hypochromasia 1+ Sodium Level 147 MMOL/L (136-145) H Potassium Level 3.6 MMOL/L (3.5-5.1) Chloride Level 111 MMOL/L (98-107) H Carbon Dioxide Level 29 MMOL/L (21-32) Anion Gap 7 mmol/L (5-15) Blood Urea Nitrogen 33 mg/dL (7-18) H Creatinine 0.6 MG/DL (0.55-1.30) Estimat Glomerular Filtration Rate > 60 mL/min (>60) Glucose Level 277 MG/DL (74-106) H Uric Acid 2.2 MG/DL (2.6-7.2) L Calcium Level 8.9 MG/DL (8.5-10.1) Phosphorus Level 3.2 MG/DL (2.5-4.9) Magnesium Level 1.9 MG/DL (1.8-2.4) Total Bilirubin 0.4 MG/DL (0.2-1.0) Aspartate Amino Transf (AST/SGOT) 17 U/L (15-37) Alanine Aminotransferase (ALT/SGPT) 70 U/L (12-78) Alkaline Phosphatase 129 U/L (46-116) H Total Protein 5.9 G/DL (6.4-8.2) L Albumin 2.0 G/DL (3.4-5.0) L Globulin 3.9 g/dL Albumin/Globulin Ratio 0.5 (1.0-2.7) L POC Whole Blood Glucose 280 MG/DL (74-106) H 356 MG/DL (74-106) H D-Dimer 1.34 mg/L FEU (0.00-0.49) H Test 07/16/20 17:32 07/16/20 20:11 POC Whole Blood Glucose 380 MG/DL (74-106) H Pending Assessment/Plan Assessment/Plan COVID 19 PNA Ischemic right foot, likely microvascular. 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 Sinus tachycardia Dehydration/hypernatremia Remains Critical and Guarded O2 suppl with taper as able. Hold diuresis Free water replacement Full anticoagulation Monitor for sustained atrial arrhythmias Replace lytes as needed Insulin cov'g by SS Check arterial duplex Aden Mejias MD Jul 17, 2020 02:19
[2020-07-17 04:00] VITALS: BP 116/75
--- NOTE | 2020-07-17 04:30 | NUR ---
NURSE NOTES: Patient has been saturating 96-98%, no respiratory difficulty noted, oral care provided and patient still sating okay even Bipap mask is off for a minute or so. Will try to titrate down his Fi02. Called RT and spoke with Mark Anthony, will closely monitor.
--- NOTE | 2020-07-17 05:00 | NUR ---
NURSE NOTES: Tried to titrate him down to 70% Fi02 but patient desaturate to 88-89%, will put back to Fi02 80% for the meantime and try to wean him down later this day.
[2020-07-17 05:26] LABS: HEMATOCRIT 37.5 % (42.0-52.0); HEMOGLOBIN 12.4 G/DL (14.2-18.0); MEAN CORPUSCULAR VOLUME 93 FL (80-99); PLATELET COUNT 226 K/UL (150-450); RED BLOOD COUNT 4.04 M/UL (4.70-6.10); RED CELL DISTRIBUTION WIDTH 12.8 % (11.6-14.8); WHITE BLOOD COUNT 11.7 K/UL (4.8-10.8)
[2020-07-17] MEDS: NovoLOG Insulin Flexpen SUBQ SCH ×4 (05:30→21:41)
[2020-07-17 06:35] LABS: ALANINE AMINOTRANSFERASE 73 U/L (12-78); ALBUMIN/GLOBULIN RATIO 0.5 (1.0-2.7); ALKALINE PHOSPHATASE 138 U/L (46-116); ANION GAP 7 mmol/L (5-15); ASPARTATE AMINO TRANSFERASE 19 U/L (15-37); BILIRUBIN,TOTAL 0.2 MG/DL (0.2-1.0); BLOOD UREA NITROGEN 35 mg/dL (7-18); CALCIUM 9.5 MG/DL (8.5-10.1); CARBON DIOXIDE 32 MMOL/L (21-32); CHLORIDE 109 MMOL/L (98-107); CREATININE 0.5 MG/DL (0.55-1.30); PHOSPHORUS 3.8 MG/DL (2.5-4.9); POTASSIUM 3.6 MMOL/L (3.5-5.1); SODIUM 148 MMOL/L (136-145)
--- NOTE | 2020-07-17 07:26 | NUR ---
NURSE HAND-OFF REPORT: Important Events on Shift: Tried to wean him down to 70% but patient desaturate. No chest pain no other complaints made. Patient Status: Patient is asleep in stable condition. Plan of care endorsed. Diet: TPN @ 80cc/hour Pending Orders: none Pending Results/Labs:AM lab result Pending MD notification:none Latest Vital Signs: Temperature 97.8 , Pulse 109 , B/P 116 /75 , Respiratory Rate 22 , O2 SAT 96 , Bi-pap, O2 Flow Rate 80.0 . Vital Sign Comment: stable EKG Rhythm: Sinus Tachycardia Rhythm change?: N MD Notified?: Y -Dr Leung covering for Dr. Kailee MAY Response: Latest Mcdowell Fall Score: 60 Fall Risk: High Risk Safety Measures: Call light Within Reach, Bed Alarm Zone 2, Side Rails Side Rails x3, Bed position Low and Locked. Fall Precautions: Door Sign Report given to TIMOTHY Winkler.
--- NOTE | 2020-07-17 07:36 | NUR ---
NURSE NOTES: Report received from TIMOTHY Lantigua. Patient is awake on bed. 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 On bipap, 14/04, Fi02 95% saturating 94-95%. Patient has PICC line on left upper arm double lumen, running TPN. Patient is covid positive, isolation protocol maintained and observed. On bedrest, bed alarm is on. Safety measures are in place, bed in lowest and locked position, side rails up x 2, call light button and bedside table within reach, instructed to call for any assistance needed.
[2020-07-17 08:00] VITALS: BP 113/79
[2020-07-17] MEDS: Enoxaparin 60mg Inj SUBQ SCH ×2 (09:57→20:34)
[2020-07-17] MEDS: Solu-MEDROL 40mg Inj IVP SCH (09:57)
[2020-07-17] MEDS: Levemir Flexpen SUBQ SCH ×2 (10:23→21:39)
--- NOTE | 2020-07-17 11:18 | Infectious Diseases Prog Note ---
Assessment/Plan Assessment/Plan antibiotics : none A 1. COVID 19 pneumonia on bipap 80 % Fi O2 with 98 % saturation s/p remdesivir 2. pulmonary embolism 3. respiratory failure P 1. continue solumedrol 2. continue isolation Subjective ROS Limited/Unobtainable: Yes Allergies: Coded Allergies: No Known Allergies (Unverified , 06/18/20) Objective Last 24 Hour Vital Signs Date Time Temp Pulse Resp B/P (MAP) Pulse Ox O2 Delivery O2 Flow Rate FiO2 07/17/20 08:00 117 07/17/20 08:00 97.9 113 19 113/79 (90) 98 07/17/20 08:00 80 07/17/20 07:12 109 22 96 80 07/17/20 04:00 97.8 103 21 116/75 (89) 99 07/17/20 04:00 Bi-pap 80.0 07/17/20 04:00 80 07/17/20 03:44 104 07/17/20 00:00 97.9 95 23 121/77 (92) 98 07/17/20 00:00 80 07/17/20 00:00 Bi-pap 80.0 07/17/20 00:00 84 07/16/20 23:15 108 25 98 80 07/16/20 20:00 98.1 92 25 116/80 (92) 95 07/16/20 20:00 80 07/16/20 20:00 Bi-pap 80.0 07/16/20 19:26 105 07/16/20 18:55 106 26 97 80 07/16/20 16:00 Bi-pap 07/16/20 16:00 97.3 105 26 120/79 (93) 97 07/16/20 16:00 80 07/16/20 16:00 112 07/16/20 14:40 115 27 98 80 07/16/20 12:00 Bi-pap 07/16/20 12:00 98.1 120 29 109/72 (84) 98 07/16/20 12:00 125 07/16/20 12:00 80 Height (Feet): 5 Height (Inches): 4.00 Weight (Pounds): 146 HEENT: other - on bipap Laboratory Tests Test 07/16/20 11:30 07/16/20 11:39 07/16/20 17:32 07/16/20 20:11 POC Whole Blood Glucose 356 MG/DL (74-106) H 380 MG/DL (74-106) H Pending D-Dimer 1.34 mg/L FEU (0.00-0.49) H Test 07/17/20 03:20 07/17/20 05:29 White Blood Count 11.7 K/UL (4.8-10.8) H Red Blood Count 4.04 M/UL (4.70-6.10) L Hemoglobin 12.4 G/DL (14.2-18.0) L Hematocrit 37.5 % (42.0-52.0) L Mean Corpuscular Volume 93 FL (80-99) Mean Corpuscular Hemoglobin 30.6 PG (27.0-31.0) Mean Corpuscular Hemoglobin Concent 33.0 G/DL (32.0-36.0) Red Cell Distribution Width 12.8 % (11.6-14.8) Platelet Count 226 K/UL (150-450) Mean Platelet Volume 7.0 FL (6.5-10.1) Neutrophils (%) (Auto) % (45.0-75.0) Lymphocytes (%) (Auto) % (20.0-45.0) Monocytes (%) (Auto) % (1.0-10.0) Eosinophils (%) (Auto) % (0.0-3.0) Basophils (%) (Auto) % (0.0-2.0) Differential Total Cells Counted 100 Neutrophils % (Manual) 83 % (45-75) H Lymphocytes % (Manual) 7 % (20-45) L Monocytes % (Manual) 10 % (1-10) Eosinophils % (Manual) 0 % (0-3) Basophils % (Manual) 0 % (0-2) Band Neutrophils 0 % (0-8) Platelet Estimate Adequate Platelet Morphology Normal Red Blood Cell Morphology Normal Sodium Level 148 MMOL/L (136-145) H Potassium Level 3.6 MMOL/L (3.5-5.1) Chloride Level 109 MMOL/L (98-107) H Carbon Dioxide Level 32 MMOL/L (21-32) Anion Gap 7 mmol/L (5-15) Blood Urea Nitrogen 35 mg/dL (7-18) H Creatinine 0.5 MG/DL (0.55-1.30) L Estimat Glomerular Filtration Rate > 60 mL/min (>60) Glucose Level 274 MG/DL (74-106) H Uric Acid 1.8 MG/DL (2.6-7.2) L Calcium Level 9.5 MG/DL (8.5-10.1) Phosphorus Level 3.8 MG/DL (2.5-4.9) Magnesium Level 2.0 MG/DL (1.8-2.4) Total Bilirubin 0.2 MG/DL (0.2-1.0) Aspartate Amino Transf (AST/SGOT) 19 U/L (15-37) Alanine Aminotransferase (ALT/SGPT) 73 U/L (12-78) Alkaline Phosphatase 138 U/L (46-116) H Total Protein 6.1 G/DL (6.4-8.2) L Albumin 2.0 G/DL (3.4-5.0) L Globulin 4.1 g/dL Albumin/Globulin Ratio 0.5 (1.0-2.7) L POC Whole Blood Glucose 264 MG/DL (74-106) H Current Medications Medications (Trade) Dose Ordered Sig/Yoselin Route PRN Reason Start Time Stop Time Status Last Admin Dose Admin Acetaminophen (Tylenol) 650 mg Q6H PRN ORAL Temp >100.5 07/03/20 16:30 08/02/20 16:29 Acetaminophen (Tylenol) 650 mg Q6H PRN ORAL For Pain 06/18/20 22:00 07/18/20 21:59 07/03/20 20:59 Acetaminophen (Tylenol) 650 mg Q6H PRN RECTAL Temp >100.5 07/04/20 20:45 08/03/20 20:44 07/04/20 21:07 Chlorhexidine Gluconate (Kalie-Hex 2%) 1 applic DAILY@2000 TOPIC 07/13/20 20:00 10/11/20 19:59 07/16/20 20:25 Dextrose 1,000 ml @ 0 mls/hr Q24H PRN IV PN interrupted or unavailable 07/11/20 12:15 08/10/20 12:14 Dextrose (Dextrose 50%) 25 ml Q30M PRN IV Hypoglycemia 07/11/20 12:15 10/09/20 12:14 Dextrose (Dextrose 50%) 50 ml Q30M PRN IV Hypoglycemia 07/11/20 12:15 10/09/20 12:14 Enoxaparin Sodium (Lovenox) 60 mg EVERY 12 HOURS SUBQ 07/05/20 10:30 10/03/20 10:29 07/17/20 09:57 Famotidine (Pepcid I.v.) 40 mg DAILY IVP 07/08/20 09:00 08/01/20 20:59 07/17/20 09:53 Fat Emulsion Intravenous 192 ml/Amino Acids/ Electrolytes/ Dextrose 1,920 ml @ 80 mls/hr Q24H IV 07/13/20 20:00 08/12/20 19:59 07/16/20 20:25 Furosemide (Lasix) 40 mg DAILY IV 07/15/20 00:30 08/14/20 00:29 07/17/20 09:53 Insulin Aspart (NovoLOG) BEFORE MEALS AND HS SUBQ 07/08/20 16:30 10/06/20 16:29 07/17/20 05:30 Insulin Detemir (Levemir) 15 units Q12HR SUBQ 07/16/20 21:00 10/13/20 20:59 07/17/20 10:23 Methylprednisolone Sodium Succinate (Solu-MEDROL) 40 mg DAILY IVP 07/16/20 09:00 10/14/20 08:59 07/17/20 09:57 Ondansetron HCl (Zofran) 4 mg Q6H PRN IVP Nausea & Vomiting 06/18/20 22:00 07/18/20 21:59 Swapna Falk MD Jul 17, 2020 11:18
--- NOTE | 2020-07-17 11:26 | Pulmonology Progress Note ---
Subjective ROS Limited/Unobtainable: Yes Interval Events: seen in SDU Constitutional: Denies: fever HEENT: Repors: no symptoms Respiratory: Reports: no symptoms Cardiovascular: Reports: no symptoms Gastrointestinal/Abdominal: Reports: no symptoms Allergies: Coded Allergies: No Known Allergies (Unverified , 06/18/20) Objective Last 24 Hour Vital Signs Date Time Temp Pulse Resp B/P (MAP) Pulse Ox O2 Delivery O2 Flow Rate FiO2 07/17/20 08:00 117 07/17/20 08:00 Bi-pap 100.0 07/17/20 08:00 97.9 113 19 113/79 (90) 98 07/17/20 08:00 80 07/17/20 07:12 109 22 96 80 07/17/20 04:00 97.8 103 21 116/75 (89) 99 07/17/20 04:00 Bi-pap 80.0 07/17/20 04:00 80 07/17/20 03:44 104 07/17/20 00:00 97.9 95 23 121/77 (92) 98 07/17/20 00:00 80 07/17/20 00:00 Bi-pap 80.0 07/17/20 00:00 84 07/16/20 23:15 108 25 98 80 07/16/20 20:00 98.1 92 25 116/80 (92) 95 07/16/20 20:00 80 07/16/20 20:00 Bi-pap 80.0 07/16/20 19:26 105 07/16/20 18:55 106 26 97 80 07/16/20 16:00 Bi-pap 07/16/20 16:00 97.3 105 26 120/79 (93) 97 07/16/20 16:00 80 07/16/20 16:00 112 07/16/20 14:40 115 27 98 80 07/16/20 12:00 Bi-pap 07/16/20 12:00 98.1 120 29 109/72 (84) 98 07/16/20 12:00 125 07/16/20 12:00 80 Intake and Output 07/16/20 07/17/20 19:00 07:00 Intake Total 430 ml 880 ml Output Total 2150 ml 650 ml Balance -1720 ml 230 ml Intake Oral 350 ml IV Total 80 ml 880 ml Output Urine Total 2150 ml 650 ml General Appearance: no acute distress HEENT: normocephalic Respiratory: chest wall non-tender, lungs clear Cardiovascular: normal peripheral pulses Abdomen: normal bowel sounds Extremities: no cyanosis Laboratory Tests 07/16/20 11:30: POC Whole Blood Glucose 356H 07/16/20 11:39: D-Dimer 1.34H 07/16/20 17:32: POC Whole Blood Glucose 380H 07/16/20 20:11: POC Whole Blood Glucose [Pending] 07/17/20 03:20: White Blood Count 11.7H, Red Blood Count 4.04L, Hemoglobin 12.4L, Hematocrit 37 .5L, Mean Corpuscular Volume 93, Mean Corpuscular Hemoglobin 30.6, Mean Corpuscular Hemoglobin Concent 33.0, Red Cell Distribution Width 12.8, Platelet Count 226, Mean Platelet Volume 7.0, Neutrophils (%) (Auto) , Lymphocytes (%) (Auto) , Monocytes (%) (Auto) , Eosinophils (%) (Auto) , Basophils (%) (Auto) , Differential Total Cells Counted 100, Neutrophils % (Manual) 83H, Lymphocytes % (Manual) 7L, Monocytes % (Manual) 10, Eosinophils % (Manual) 0, Basophils % (Manual) 0, Band Neutrophils 0, Platelet Estimate Adequate, Platelet Morphology Normal, Red Blood Cell Morphology Normal, Sodium Level 148H, Potassium Level 3.6, Chloride Level 109H, Carbon Dioxide Level 32, Anion Gap 7, Blood Urea Nitrogen 35H, Creatinine 0.5L, Estimat Glomerular Filtration Rate > 60, Glucose Level 274H, Uric Acid 1.8L, Calcium Level 9.5, Phosphorus Level 3.8, Magnesium Level 2.0, Total Bilirubin 0.2, Aspartate Amino Transf (AST/SGOT) 19, Alanine Aminotransferase (ALT/SGPT) 73, Alkaline Phosphatase 138H, Total Protein 6.1L, Albumin 2.0L, Globulin 4.1, Albumin/Globulin Ratio 0.5L 07/17/20 05:29: POC Whole Blood Glucose 264H Current Medications Medications (Trade) Dose Ordered Sig/Yoselin Route PRN Reason Start Time Stop Time Status Last Admin Dose Admin Acetaminophen (Tylenol) 650 mg Q6H PRN ORAL Temp >100.5 07/03/20 16:30 08/02/20 16:29 Acetaminophen (Tylenol) 650 mg Q6H PRN ORAL For Pain 06/18/20 22:00 07/18/20 21:59 07/03/20 20:59 Acetaminophen (Tylenol) 650 mg Q6H PRN RECTAL Temp >100.5 07/04/20 20:45 08/03/20 20:44 07/04/20 21:07 Chlorhexidine Gluconate (Kalie-Hex 2%) 1 applic DAILY@2000 TOPIC 07/13/20 20:00 10/11/20 19:59 07/16/20 20:25 Dextrose 1,000 ml @ 0 mls/hr Q24H PRN IV PN interrupted or unavailable 07/11/20 12:15 08/10/20 12:14 Dextrose (Dextrose 50%) 25 ml Q30M PRN IV Hypoglycemia 07/11/20 12:15 10/09/20 12:14 Dextrose (Dextrose 50%) 50 ml Q30M PRN IV Hypoglycemia 07/11/20 12:15 10/09/20 12:14 Enoxaparin Sodium (Lovenox) 60 mg EVERY 12 HOURS SUBQ 07/05/20 10:30 10/03/20 10:29 07/17/20 09:57 Famotidine (Pepcid I.v.) 40 mg DAILY IVP 07/08/20 09:00 08/01/20 20:59 07/17/20 09:53 Fat Emulsion Intravenous 192 ml/Amino Acids/ Electrolytes/ Dextrose 1,920 ml @ 80 mls/hr Q24H IV 07/13/20 20:00 08/12/20 19:59 07/16/20 20:25 Furosemide (Lasix) 40 mg DAILY IV 07/15/20 00:30 08/14/20 00:29 07/17/20 09:53 Insulin Aspart (NovoLOG) BEFORE MEALS AND HS SUBQ 07/08/20 16:30 10/06/20 16:29 07/17/20 05:30 Insulin Detemir (Levemir) 15 units Q12HR SUBQ 07/16/20 21:00 10/13/20 20:59 07/17/20 10:23 Methylprednisolone Sodium Succinate (Solu-MEDROL) 40 mg DAILY IVP 07/16/20 09:00 10/14/20 08:59 07/17/20 09:57 Ondansetron HCl (Zofran) 4 mg Q6H PRN IVP Nausea & Vomiting 06/18/20 22:00 07/18/20 21:59 Assessment/Plan Assessment/Plan 1. COVID-19 pneumonia. - s/p decadron (06/22-06/28) - s/p broad-spectrum antibiotics - s/p remdesivir - CXR 06/26 better - CXR 07/12 no significant change - on Solu-Medrol per ID (07/13-) 2. Respiratory failure. - desaturated on 80% FiO2 BiPAP; now back on 100% FiO2 BiPAP - will attempt course of steroids (solumedrol) 3. Pulmonary embolism. - s/p heparin - Back on Lovenox as he cannot tolerate PO meds - D-Dimer 07/16 1.34 4. Troponin leak. - 2D echo showed LV EF 65% 5. Malnutrition - s/p PICC line and TPN (07/13) 6. Leukocytosis -ID following seen in [facility] Attempted venti-mask.. unsuccessful The care for this patient was discussed with my supervising physician Time spent for this case was approximately 31 minutes Jhonny Vences Jul 17, 2020 11:26
--- NOTE | 2020-07-17 11:35 | NUR ---
NURSE NOTES:WOUND CARE NOTES:Pt seen at request of Primary nurse for onset of Purpuric toe L 3rd metatarsal. Per observation,pt's L 1st,2nd and 3rd metatarsals noted to have skin changes. L 1st metatarsal noted to be mottled with purpuric area at metatarsal head. L 2nd metatarsal mottled with erythematous streak at matrix and plantar aspect. L 3rd metatarsal is bluish/black in colour . L foot noted to be cold to touch. R foot is cold to touch and mottled at plantar aspect of heel but is less conspicuous in comparison to L foot.Unable to complete thorough skin assessment as pt condition not stable at present time.
--- NOTE | 2020-07-17 11:35 | NUR ---
CASE MANAGEMENT:REVIEW 07/17/20 SI: COVID PNA. RESPIRATORY FAILURE PULMONARY EMBOLI 97.9 113 19 113/79 98% ON BIPAP W/80% FIO2 WBC+11.7 H/H-12.4/37.5 IS: TPN/IL @80/HR IV SOLUMEDROL 40MG QD IV LASIX QD LEVEMIR SQ Q12 IV PEPCID QD LOVENOX SQ Q12 : STEP DOWN UNIT DCP: FROM HOME PLAN: FAILED VENTI MASK ~ CONTINUE WITH BIPAP
[2020-07-17 12:00] VITALS: BP 126/73
--- NOTE | 2020-07-17 12:13 | NUR ---
NURSE NOTES: Re wound on foot, per Migel this is not a wound but oxygen deprived tissue. Will inform Dr. clifford on his round
--- NOTE | 2020-07-17 13:47 | Nephrology Progress Note ---
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 Labs reviewed. Discussed with pharmacy. Continue as is. July 16: Remains on TPN. Labs reviewed. Sodium slightly elevated. Levemir dose increased for better blood sugar control. Discussed with pharmacy. Continue to monitor electrolytes. July 15: On TPN. Labs reviewed. Continue TPN as is. Adjust insulin for blood sugar control. Per orders. July 14: Patient started on TPN since last night. We will continue to monitor electrolytes and renal parameters and adjust TPN composition as needed. Discussed with pharmacy. July 13: Due for PICC line today and initiation of TPN. Low magnesium addressed. Continue per current management. July 12: Remains full code. Remains on BiPAP. Labs reviewed. Low potassium and phosphorus addressed. Awaiting initiation of TPN. Subjective ROS Limited/Unobtainable: Yes Objective Objective Last 24 Hour Vital Signs Date Time Temp Pulse Resp B/P (MAP) Pulse Ox O2 Delivery O2 Flow Rate FiO2 07/17/20 12:00 100 07/17/20 12:00 Bi-pap 100.0 07/17/20 12:00 98.7 124 20 126/73 (90) 96 07/17/20 11:31 118 07/17/20 11:17 119 20 97 100 07/17/20 08:00 117 07/17/20 08:00 Bi-pap 100.0 07/17/20 08:00 97.9 113 19 113/79 (90) 98 07/17/20 08:00 80 07/17/20 07:12 109 22 96 80 07/17/20 04:00 97.8 103 21 116/75 (89) 99 07/17/20 04:00 Bi-pap 80.0 07/17/20 04:00 80 07/17/20 03:44 104 07/17/20 00:00 97.9 95 23 121/77 (92) 98 07/17/20 00:00 80 07/17/20 00:00 Bi-pap 80.0 07/17/20 00:00 84 07/16/20 23:15 108 25 98 80 07/16/20 20:00 98.1 92 25 116/80 (92) 95 07/16/20 20:00 80 07/16/20 20:00 Bi-pap 80.0 07/16/20 19:26 105 07/16/20 18:55 106 26 97 80 07/16/20 16:00 Bi-pap 07/16/20 16:00 97.3 105 26 120/79 (93) 97 07/16/20 16:00 80 07/16/20 16:00 112 07/16/20 14:40 115 27 98 80 Intake and Output 07/16/20 07/17/20 19:00 07:00 Intake Total 430 ml 880 ml Output Total 2150 ml 650 ml Balance -1720 ml 230 ml Intake Oral 350 ml IV Total 80 ml 880 ml Output Urine Total 2150 ml 650 ml Current Medications Medications (Trade) Dose Ordered Sig/Yoselin Route PRN Reason Start Time Stop Time Status Last Admin Dose Admin Acetaminophen (Tylenol) 650 mg Q6H PRN ORAL Temp >100.5 07/03/20 16:30 08/02/20 16:29 Acetaminophen (Tylenol) 650 mg Q6H PRN ORAL For Pain 06/18/20 22:00 07/18/20 21:59 07/03/20 20:59 Acetaminophen (Tylenol) 650 mg Q6H PRN RECTAL Temp >100.5 07/04/20 20:45 08/03/20 20:44 07/04/20 21:07 Chlorhexidine Gluconate (Kalie-Hex 2%) 1 applic DAILY@2000 TOPIC 07/13/20 20:00 10/11/20 19:59 07/16/20 20:25 Dextrose 1,000 ml @ 0 mls/hr Q24H PRN IV PN interrupted or unavailable 07/11/20 12:15 08/10/20 12:14 Dextrose (Dextrose 50%) 25 ml Q30M PRN IV Hypoglycemia 07/11/20 12:15 10/09/20 12:14 Dextrose (Dextrose 50%) 50 ml Q30M PRN IV Hypoglycemia 07/11/20 12:15 10/09/20 12:14 Enoxaparin Sodium (Lovenox) 60 mg EVERY 12 HOURS SUBQ 07/05/20 10:30 10/03/20 10:29 07/17/20 09:57 Famotidine (Pepcid I.v.) 40 mg DAILY IVP 07/08/20 09:00 08/01/20 20:59 07/17/20 09:53 Fat Emulsion Intravenous 192 ml/Amino Acids/ Electrolytes/ Dextrose 1,920 ml @ 80 mls/hr Q24H IV 07/13/20 20:00 08/12/20 19:59 07/16/20 20:25 Furosemide (Lasix) 40 mg DAILY IV 07/15/20 00:30 08/14/20 00:29 07/17/20 09:53 Insulin Aspart (NovoLOG) BEFORE MEALS AND HS SUBQ 07/08/20 16:30 10/06/20 16:29 07/17/20 11:48 Insulin Detemir (Levemir) 15 units Q12HR SUBQ 07/16/20 21:00 10/13/20 20:59 07/17/20 10:23 Methylprednisolone Sodium Succinate (Solu-MEDROL) 40 mg DAILY IVP 07/16/20 09:00 10/14/20 08:59 07/17/20 09:57 Ondansetron HCl (Zofran) 4 mg Q6H PRN IVP Nausea & Vomiting 06/18/20 22:00 07/18/20 21:59 Laboratory Tests 07/16/20 17:32: POC Whole Blood Glucose 380H 07/16/20 20:11: POC Whole Blood Glucose [Pending] 07/17/20 03:20: White Blood Count 11.7H, Red Blood Count 4.04L, Hemoglobin 12.4L, Hematocrit 37.5L, Mean Corpuscular Volume 93, Mean Corpuscular Hemoglobin 30.6, Mean Co rpuscular Hemoglobin Concent 33.0, Red Cell Distribution Width 12.8, Platelet Count 226, Mean Platelet Volume 7.0, Neutrophils (%) (Auto) , Lymphocytes (%) (Auto) , Monocytes (%) (Auto) , Eosinophils (%) (Auto) , Basophils (%) (Auto) , Differential Total Cells Counted 100, Neutrophils % (Manual) 83H, Lymphocytes % (Manual) 7L, Monocytes % (Manual) 10, Eosinophils % (Manual) 0, Basophils % (Manual) 0, Band Neutrophils 0, Platelet Estimate Adequate, Platelet Morphology Normal, Red Blood Cell Morphology Normal, Sodium Level 148H, Potassium Level 3.6, Chloride Level 109H, Carbon Dioxide Level 32, Anion Gap 7, Blood Urea Nitrogen 35H, Creatinine 0.5L, Estimat Glomerular Filtration Rate > 60, Glucose Level 274H, Uric Acid 1.8L, Calcium Level 9.5, Phosphorus Level 3.8, Magnesium Level 2.0, Total Bilirubin 0.2, Aspartate Amino Transf (AST/SGOT) 19, Alanine Aminotransferase (ALT/SGPT) 73, Alkaline Phosphatase 138H, Total Protein 6.1L, Albumin 2.0L, Globulin 4.1, Albumin/Globulin Ratio 0.5L 07/17/20 05:29: POC Whole Blood Glucose 264H Height (Feet): 5 Height (Inches): 4.00 Weight (Pounds): 146 General Appearance: no apparent distress EENT: other - On BiPAP Cardiovascular: tachycardia Respiratory/Chest: decreased breath sounds Abdomen: distended Jimmy Saul MD Jul 17, 2020 13:47
--- NOTE | 2020-07-17 14:34 | NUR ---
NURSE NOTES: Notified Dr. Mejias re necrosis in left foot. Per Md keep warm and wrapped.
[2020-07-17 16:00] VITALS: BP 121/87
--- NOTE | 2020-07-17 17:54 | Diagnostic Imaging Report ---
EXAM: US Duplex Bilateral Lower Extremities Arteries CLINICAL HISTORY: INFECT TECHNIQUE: Real-time duplex ultrasound scan of the bilateral lower extremity arteries integrating B-mode two-dimensional vascular structure, Doppler spectral analysis and color flow Doppler imaging. COMPARISON: No relevant prior studies available. FINDINGS: VESSEL PSV (cm/s) Right: JAILER/TRAINING OFFICER 158 SFA mid 83 SFA distal 61 Pop 53 DP 42 PT 47 AT 34 Per N/V VESSEL PSV (cm/s) Left: JAILER/TRAINING OFFICER 64 SFA mid 99 SFA distal 56 Pop 32 PT 38 AT N/V Per N/V Other Findings: Nonvisualized right peroneal artery. Nonvisualized left peroneal and left anterior tibial artery. Nonvisualization is of uncertain significance, technologist reports that the study was somewhat limited due to patient being Covid 19 positive; relationship of nonvisualization and patient Covid status is unclear. IMPRESSION: 1. Nonvisualized right peroneal artery. 2. Nonvisualized left peroneal and left anterior tibial artery. 3. Nonvisualization is of uncertain significance, technologist reports that the study was somewhat limited due to patient being Covid 19 positive; relationship of nonvisualization and patient Covid status is unclear. 4. If there is further concern for arterial hypoperfusion, consider CTA bilateral lower extremities.
--- NOTE | 2020-07-17 18:39 | NUR ---
NURSE NOTES: Contacted Dr. Mejias to report results of arterial duplex. awaiting response.
--- NOTE | 2020-07-17 18:40 | NUR ---
NURSE HAND-OFF REPORT: Important Events on Shift:[Pt bipap has tendency to form gap at top, however when properly adjusted, he is tolerating 80% very well. hypoxic necrosis noted to lower left toes. Arterial duplex done.] Patient Status: [Full code] Diet: [TPN] Pending Orders: [] Pending Results/Labs:[] Pending MD notification:[Waiting for Dr. Mejias response RE possible CTA] Latest Vital Signs: Temperature 97.9 , Pulse 118 , B/P 121 /87 , Respiratory Rate 18 , O2 SAT 97 , Bi-pap, O2 Flow Rate 80.0 . Vital Sign Comment: [] EKG Rhythm: Sinus Tachycardia Rhythm change?: N MD Notified?: Y -Dr Leung covering for Dr. Kailee MAY Response: Latest Mcdowell Fall Score: 60 Fall Risk: High Risk Safety Measures: Call light Within Reach, Bed Alarm Zone 2, Side Rails Side Rails x3, Bed position Low and Locked. Fall Precautions: Door Sign Report given to [Pending RN assignment]. Addendum: 07/17/20 at 1924 by Cathi Webb RN Report given to Libertad AGUIRRE
--- NOTE | 2020-07-17 19:00 | NUR ---
NURSE NOTES: Report received from TIMOTHY Winkler. Patient is awake on bed. color television console monitor is in place, shows sinus tachycardia at this time, HR of 117. On bipap, 15/12, Fi02 80% saturating 99%. Patient has PICC line on left upper arm double lumen, running TPN. Patient is covid positive, isolation protocol maintained and observed. On bedrest, Bed is in lowest position, bed alarm is on. Safety measures are in place, bed in lowest and locked position, side rails up x 2, Patient educated on how to use call light, call light button and bedside table within reach, instructed to call for any assistance needed. Will continue to monitor.
[2020-07-17 20:00] VITALS: BP 113/86
[2020-07-17] MEDS: TPN IV SCH (20:34)
[2020-07-17] MEDS: Dyna-Hex 2% Top Sol 2oz TOPIC SCH (20:34)
[2020-07-17] MEDS: FAT EMULSION 20% IV SCH (20:34)
[2020-07-18] VITALS (7 sets, daily range): BP systolic 101–143; BP diastolic 56–96
--- NOTE | 2020-07-18 01:18 | NUR ---
MACHINIST FIRST CLASS Note: Patient went bradycardic on the bus driver/monitor down to 44BPM at 01:09Am. Nurse went in to the patient room and bipap straps where lessened one of the bottom side strap . The nurse placed bipap tightly on the patent. 01:14 patient HR went up to 229BPM at 1:15am. MACHINIST FIRST CLASS was called patient was running A-Fib RVR 170 at 01:14. Patient initial BP was 157/90. At 01:23 Patient BP was 142/96 HR was 113. Patient is able to fallow command but is lethargic. Blood sugar was taken and is 312. ABG where Drown. Chest Xray where ordered STAT. Patient stated in SDU. Will continue to monitor.
--- NOTE | 2020-07-18 02:37 | Diagnostic Imaging Report ---
EXAM: XR Chest, 1 View CLINICAL HISTORY: SOB TECHNIQUE: Frontal view of the chest. COMPARISON: 07/12/2020 FINDINGS: Lungs: Low lung volumes with bronchovascular crowding. Retrocardiac atelectasis without or with consolidation. Patchy scattered lung opacities could be due to low lung volumes or could represent multifocal consolidation, correlate with presentation. Pleural space: Unremarkable. No pneumothorax. Heart: Mild cardiomegaly. Mediastinum: Unremarkable. Bones/joints: No acute abnormality Tubes, lines and devices: Left subclavian approach central venous catheter, tip at the cavoatrial junction. IMPRESSION: 1. Left subclavian approach central venous catheter, tip at the cavoatrial junction. 2. Low lung volumes with bronchovascular crowding. 3. Patchy scattered lung opacities could be due to low lung volumes or could represent multifocal consolidation, correlate with presentation. 4. Mild cardiomegaly. 5. Retrocardiac atelectasis without or with consolidation. 6. If there is continued concern, consider CT.
--- NOTE | 2020-07-18 03:59 | NUR ---
NURSE NOTES: Patient bipap straps have trouble staying on. Straps have been changed by RT. Will continue to monitor patient to make sure mask stays on.
[2020-07-18 04:59] LABS: HEMATOCRIT 36.5 % (42.0-52.0); HEMOGLOBIN 12.3 G/DL (14.2-18.0); MEAN CORPUSCULAR VOLUME 92 FL (80-99); PLATELET COUNT 203 K/UL (150-450); RED BLOOD COUNT 3.95 M/UL (4.70-6.10); RED CELL DISTRIBUTION WIDTH 12.6 % (11.6-14.8); WHITE BLOOD COUNT 14.6 K/UL (4.8-10.8)
[2020-07-18 05:02] LABS: ALANINE AMINOTRANSFERASE 62 U/L (12-78); ALBUMIN 1.9 G/DL (3.4-5.0); ALBUMIN/GLOBULIN RATIO 0.4 (1.0-2.7); ALKALINE PHOSPHATASE 134 U/L (46-116); ANION GAP 7 mmol/L (5-15); ASPARTATE AMINO TRANSFERASE 16 U/L (15-37); BILIRUBIN,TOTAL 0.3 MG/DL (0.2-1.0); BLOOD UREA NITROGEN 31 mg/dL (7-18); CALCIUM 8.9 MG/DL (8.5-10.1); CARBON DIOXIDE 30 MMOL/L (21-32); CHLORIDE 108 MMOL/L (98-107); CREATININE 0.6 MG/DL (0.55-1.30); PHOSPHORUS 3.4 MG/DL (2.5-4.9); POTASSIUM 3.8 MMOL/L (3.5-5.1); SODIUM 145 MMOL/L (136-145)
--- NOTE | 2020-07-18 05:30 | NUR ---
NURSE NOTES: Patient can't tolerant being cleaned in the morning he desaturated to 72% spo2 with bed dtill in high fowlers. Patient slowly went up to 96%.
[2020-07-18] MEDS: NovoLOG Insulin Flexpen SUBQ SCH ×4 (05:36→21:53)
--- NOTE | 2020-07-18 07:19 | NUR ---
NURSE HAND-OFF REPORT: Important Events on Shift:Patient went bradycardic on the satellite project site monitor down to 44BPM at 01:09Am. Nurse went in to the patient room and bipap straps where lessened one of the bottom side strap . The nurse placed bipap tightly on the patent. 01:14 patient HR went up to 229BPM at 1:15am. PROMOTIONAL MARKETING AGENT was called patient was running A-Fib RVR 170 at 01:14. Patient initial BP was 157/90. At 01:23 Patient BP was 142/96 HR was 113. Patient is able to fallow command but is lethargic. Blood sugar was taken and is 312. ABG where Drown. Chest Xray where ordered STAT. Patient stated in SDU. Patient Status: Bipap is not stay well on patient. Diet: TPN Pending Orders: Pending Results/Labs: Pending MD notification: Latest Vital Signs: Temperature 97.5 , Pulse 115 , B/P 136 /92 , Respiratory Rate 18 , O2 SAT 96 , Bi-pap, O2 Flow Rate 80.0 . Vital Sign Comment: EKG Rhythm: Sinus Tachycardia Rhythm change?: N Notified?: [place] -Dr Leung covering for Dr. Kailee MAY Response: Latest Mcdowell Fall Score: 60 Fall Risk: High Risk Safety Measures: Call light Within Reach, Bed Alarm Zone 2, Side Rails Side Rails x3, Bed position Low and Locked. Fall Precautions: Door Sign Report given to Ben LAUREN
--- NOTE | 2020-07-18 07:25 | NUR ---
NURSE NOTES: Received patient in bed. Awake, A/O x2. On BiPAP with settings as ordered. PICC in AFSANEH, infusing IVf as ordered. Bed low and locked, side rails up x3, bed alarm on high sensitivity, call light within reach with return demonstration.
--- NOTE | 2020-07-18 08:19 | Infectious Diseases Prog Note ---
Assessment/Plan Assessment/Plan IMPRESSION: 1. leukocytosis. 2. COVID-19 pneumonia. 3. Pulmonary emboli. 4. Hypoxic respiratory failure, 5. Elevated troponin. RECOMMENDATION: Finished Remdesivir course Continue Solumedrol tapering Subjective ROS Limited/Unobtainable: Yes Allergies: Coded Allergies: No Known Allergies (Unverified , 06/18/20) Objective Last 24 Hour Vital Signs Date Time Temp Pulse Resp B/P (MAP) Pulse Ox O2 Delivery O2 Flow Rate FiO2 07/18/20 04:00 100 07/18/20 04:00 97.5 115 18 136/92 (107) 96 07/18/20 04:00 Bi-pap 80.0 07/18/20 03:43 115 07/18/20 03:05 112 24 96 80 07/18/20 01:48 129 24 100 07/18/20 00:00 80 07/18/20 00:00 98.1 89 18 109/88 (95) 100 07/18/20 00:00 Bi-pap 80.0 07/17/20 23:52 82 07/17/20 23:20 86 24 100 80 07/17/20 20:00 80 07/17/20 20:00 98 07/17/20 20:00 Bi-pap 80.0 07/17/20 20:00 98.1 104 17 113/86 (95) 100 07/17/20 19:15 100 19 99 80 07/17/20 16:00 80 07/17/20 16:00 118 07/17/20 16:00 Bi-pap 80.0 07/17/20 16:00 97.9 112 18 121/87 (98) 97 07/17/20 15:17 118 28 99 80 07/17/20 12:00 100 07/17/20 12:00 Bi-pap 100.0 07/17/20 12:00 98.7 124 20 126/73 (90) 96 07/17/20 11:31 118 07/17/20 11:17 119 20 97 100 Height (Feet): 5 Height (Inches): 4.00 Weight (Pounds): 146 HEENT: mucous membranes moist Respiratory/Chest: other - on BIPAP , [id number]% Cardiovascular: tachycardia, other - left subclavian line Abdomen: soft, non tender Extremities: no edema Neurologic/Psychiatric: alert, responsive Laboratory Tests Test 07/17/20 20:45 07/18/20 01:31 07/18/20 03:40 07/18/20 05:09 POC Whole Blood Glucose 259 MG/DL (74-106) H 246 MG/DL (74-106) H Arterial Blood pH 7.386 (7.350-7.450) Arterial Blood Partial Pressure CO2 39.9 mmHg (35.0-45.0) Arterial Blood Partial Pressure O2 66.3 mmHg (75.0-100.0) L Arterial Blood HCO3 23.4 mmol/L (22.0-26.0) Arterial Blood Oxygen Saturation 92.0 % (95-100) L Arterial Blood Base Excess -1.5 (-2-2) Roshan Test Positive White Blood Count 14.6 K/UL (4.8-10.8) H Red Blood Count 3.95 M/UL (4.70-6.10) L Hemoglobin 12.3 G/DL (14.2-18.0) L Hematocrit 36.5 % (42.0-52.0) L Mean Corpuscular Volume 92 FL (80-99) Mean Corpuscular Hemoglobin 31.1 PG (27.0-31.0) H Mean Corpuscular Hemoglobin Concent 33.6 G/DL (32.0-36.0) Red Cell Distribution Width 12.6 % (11.6-14.8) Platelet Count 203 K/UL (150-450) Mean Platelet Volume 7.6 FL (6.5-10.1) Neutrophils (%) (Auto) % (45.0-75.0) Lymphocytes (%) (Auto) % (20.0-45.0) Monocytes (%) (Auto) % (1.0-10.0) Eosinophils (%) (Auto) % (0.0-3.0) Basophils (%) (Auto) % (0.0-2.0) Neutrophils % (Manual) Pending Lymphocytes % (Manual) Pending Platelet Estimate Pending Platelet Morphology Pending Sodium Level 145 MMOL/L (136-145) Potassium Level 3.8 MMOL/L (3.5-5.1) Chloride Level 108 MMOL/L (98-107) H Carbon Dioxide Level 30 MMOL/L (21-32) Anion Gap 7 mmol/L (5-15) Blood Urea Nitrogen 31 mg/dL (7-18) H Creatinine 0.6 MG/DL (0.55-1.30) Estimat Glomerular Filtration Rate > 60 mL/min (>60) Glucose Level 286 MG/DL (74-106) H Uric Acid 1.9 MG/DL (2.6-7.2) L Calcium Level 8.9 MG/DL (8.5-10.1) Phosphorus Level 3.4 MG/DL (2.5-4.9) Magnesium Level 1.9 MG/DL (1.8-2.4) Total Bilirubin 0.3 MG/DL (0.2-1.0) Aspartate Amino Transf (AST/SGOT) 16 U/L (15-37) Alanine Aminotransferase (ALT/SGPT) 62 U/L (12-78) Alkaline Phosphatase 134 U/L (46-116) H Total Protein 6.2 G/DL (6.4-8.2) L Albumin 1.9 G/DL (3.4-5.0) L Globulin 4.3 g/dL Albumin/Globulin Ratio 0.4 (1.0-2.7) L Current Medications Medications (Trade) Dose Ordered Sig/Yoselin Route PRN Reason Start Time Stop Time Status Last Admin Dose Admin Acetaminophen (Tylenol) 650 mg Q6H PRN ORAL For Pain 07/17/20 15:24 08/16/20 15:23 Acetaminophen (Tylenol) 650 mg Q6H PRN ORAL Temp >100.5 07/03/20 16:30 08/02/20 16:29 Acetaminophen (Tylenol) 650 mg Q6H PRN RECTAL Temp >100.5 07/04/20 20:45 08/03/20 20:44 07/04/20 21:07 Chlorhexidine Gluconate (Kalie-Hex 2%) 1 applic DAILY@2000 TOPIC 07/13/20 20:00 10/11/20 19:59 07/17/20 20:34 Dextrose 1,000 ml @ 0 mls/hr Q24H PRN IV PN interrupted or unavailable 07/11/20 12:15 08/10/20 12:14 Dextrose (Dextrose 50%) 25 ml Q30M PRN IV Hypoglycemia 07/11/20 12:15 10/09/20 12:14 Dextrose (Dextrose 50%) 50 ml Q30M PRN IV Hypoglycemia 07/11/20 12:15 10/09/20 12:14 Enoxaparin Sodium (Lovenox) 60 mg EVERY 12 HOURS SUBQ 07/05/20 10:30 10/03/20 10:29 07/17/20 20:34 Famotidine (Pepcid I.v.) 40 mg DAILY IVP 07/08/20 09:00 08/01/20 20:59 07/17/20 09:53 Fat Emulsion Intravenous 192 ml/Amino Acids/ Electrolytes/ Dextrose 1,920 ml @ 80 mls/hr Q24H IV 07/13/20 20:00 08/12/20 19:59 07/17/20 20:34 Insulin Aspart (NovoLOG) BEFORE MEALS AND HS SUBQ 07/08/20 16:30 10/06/20 16:29 07/18/20 05:36 Insulin Detemir (Levemir) 15 units Q12HR SUBQ 07/16/20 21:00 10/13/20 20:59 07/17/20 21:39 Methylprednisolone Sodium Succinate (Solu-MEDROL) 40 mg DAILY IVP 07/16/20 09:00 10/14/20 08:59 07/17/20 09:57 Ondansetron HCl (Zofran) 4 mg Q6H PRN IVP Nausea & Vomiting 07/17/20 16:00 08/16/20 15:59 Arturo Dudley MD Jul 18, 2020 08:19
[2020-07-18] MEDS: Solu-MEDROL 40mg Inj IVP SCH (08:46)
[2020-07-18] MEDS: Enoxaparin 60mg Inj SUBQ SCH ×2 (08:50→21:57)
[2020-07-18] MEDS: Levemir Flexpen SUBQ SCH ×2 (08:51→21:53)
--- NOTE | 2020-07-18 09:18 | Pulmonology Progress Note ---
Subjective ROS Limited/Unobtainable: Yes Interval Events: seen in SDU Constitutional: Denies: fever HEENT: Repors: no symptoms Respiratory: Reports: no symptoms Cardiovascular: Reports: no symptoms Gastrointestinal/Abdominal: Reports: no symptoms Allergies: Coded Allergies: No Known Allergies (Unverified , 06/18/20) Objective Last 24 Hour Vital Signs Date Time Temp Pulse Resp B/P (MAP) Pulse Ox O2 Delivery O2 Flow Rate FiO2 07/18/20 08:00 99.3 103 20 143/89 (107) 100 07/18/20 07:20 112 23 100 80 07/18/20 04:00 100 07/18/20 04:00 97.5 115 18 136/92 (107) 96 07/18/20 04:00 Bi-pap 80.0 07/18/20 03:43 115 07/18/20 03:05 112 24 96 80 07/18/20 01:48 129 24 100 07/18/20 00:00 80 07/18/20 00:00 98.1 89 18 109/88 (95) 100 07/18/20 00:00 Bi-pap 80.0 07/17/20 23:52 82 07/17/20 23:20 86 24 100 80 07/17/20 20:00 80 07/17/20 20:00 98 07/17/20 20:00 Bi-pap 80.0 07/17/20 20:00 98.1 104 17 113/86 (95) 100 07/17/20 19:15 100 19 99 80 07/17/20 16:00 80 07/17/20 16:00 118 07/17/20 16:00 Bi-pap 80.0 07/17/20 16:00 97.9 112 18 121/87 (98) 97 07/17/20 15:17 118 28 99 80 07/17/20 12:00 100 07/17/20 12:00 Bi-pap 100.0 07/17/20 12:00 98.7 124 20 126/73 (90) 96 07/17/20 11:31 118 07/17/20 11:17 119 20 97 100 Intake and Output 07/17/20 07/18/20 19:00 07:00 Intake Total 960 ml 834 ml Output Total 400 ml 450 ml Balance 560 ml 384 ml IV Total 960 ml 834 ml Output Urine Total 400 ml 450 ml General Appearance: no acute distress HEENT: normocephalic Respiratory: chest wall non-tender, lungs clear Cardiovascular: normal peripheral pulses Abdomen: normal bowel sounds Extremities: no cyanosis Laboratory Tests 07/17/20 20:45: POC Whole Blood Glucose 259H 07/18/20 01:31: Arterial Blood pH 7.386, Arterial Blood Partial Pressure CO2 39.9, Arterial Blood Partial Pressure O2 66.3L, Arterial Blood HCO3 23.4, Arterial Blood Oxygen Saturation 92.0L, Arterial Blood Base Excess -1.5, Roshan Test Positive 07/18/20 03:40: White Blood Count 14.6H, Red Blood Count 3.95L, Hemoglobin 12.3L, Hematocrit 36.5L, Mean Corpuscular Volume 92, Mean Corpuscular Hemoglobin 31.1H, Mean Corpuscular Hemoglobin Concent 33.6, Red Cell Distribution Width 12.6, Platelet Count 203, Mean Platelet Volume 7.6, Neutrophils (%) (Auto) , Lymphocytes (%) (Auto) , Monocytes (%) (Auto) , Eosinophils (%) (Auto) , Basophils (%) (Auto) , Differential Total Cells Counted 100, Neutrophils % (Manual) 94H, Lymphocytes % (Manual) 2L, Monocytes % (Manual) 4, Eosinophils % (Manual) 0, Basophils % (Manual) 0, Band Neutrophils 0, Platelet Estimate Adequate, Platelet Morphology Normal, Red Blood Cell Morphology Normal, Sodium Level 145, Potassium Level 3.8, Chloride Level 108H, Carbon Dioxide Level 30, Anion Gap 7, Blood Urea Nitrogen 31H, Creatinine 0.6, Estimat Glomerular Filtration Rate > 60, Glucose Level 286H , Uric Acid 1.9L, Calcium Level 8.9, Phosphorus Level 3.4, Magnesium Level 1.9, Total Bilirubin 0.3, Aspartate Amino Transf (AST/SGOT) 16, Alanine Aminotransferase (ALT/SGPT) 62, Alkaline Phosphatase 134H, Total Protein 6.2L, Albumin 1.9L, Globulin 4.3, Albumin/Globulin Ratio 0.4L 07/18/20 05:09: POC Whole Blood Glucose 246H Current Medications Medications (Trade) Dose Ordered Sig/Yoselin Route PRN Reason Start Time Stop Time Status Last Admin Dose Admin Acetaminophen (Tylenol) 650 mg Q6H PRN ORAL For Pain 07/17/20 15:24 2/21/21 15:23 Acetaminophen (Tylenol) 650 mg Q6H PRN ORAL Temp >100.5 07/03/20 16:30 08/02/20 16:29 Acetaminophen (Tylenol) 650 mg Q6H PRN RECTAL Temp >100.5 07/04/20 20:45 08/03/20 20:44 07/04/20 21:07 Chlorhexidine Gluconate (Kalie-Hex 2%) 1 applic DAILY@2000 TOPIC 07/13/20 20:00 10/11/20 19:59 07/17/20 20:34 Dextrose 1,000 ml @ 0 mls/hr Q24H PRN IV PN interrupted or unavailable 07/11/20 12:15 08/10/20 12:14 Dextrose (Dextrose 50%) 25 ml Q30M PRN IV Hypoglycemia 07/11/20 12:15 10/09/20 12:14 Dextrose (Dextrose 50%) 50 ml Q30M PRN IV Hypoglycemia 07/11/20 12:15 10/09/20 12:14 Enoxaparin Sodium (Lovenox) 60 mg EVERY 12 HOURS SUBQ 07/05/20 10:30 10/03/20 10:29 07/18/20 08:50 Famotidine (Pepcid I.v.) 40 mg DAILY IVP 07/08/20 09:00 08/01/20 20:59 07/18/20 08:46 Fat Emulsion Intravenous 192 ml/Amino Acids/ Electrolytes/ Dextrose 1,920 ml @ 80 mls/hr Q24H IV 07/13/20 20:00 08/12/20 19:59 07/17/20 20:34 Insulin Aspart (NovoLOG) BEFORE MEALS AND HS SUBQ 07/08/20 16:30 10/06/20 16:29 07/18/20 05:36 Insulin Detemir (Levemir) 15 units Q12HR SUBQ 07/16/20 21:00 10/13/20 20:59 07/18/20 08:51 Methylprednisolone Sodium Succinate (Solu-MEDROL) 40 mg DAILY IVP 07/16/20 09:00 10/14/20 08:59 07/18/20 08:46 Ondansetron HCl (Zofran) 4 mg Q6H PRN IVP Nausea & Vomiting 07/17/20 16:00 08/16/20 15:59 Assessment/Plan Assessment/Plan 1. COVID-19 pneumonia. - s/p decadron (06/22-06/28) - s/p broad-spectrum antibiotics - s/p remdesivir - CXR 06/26 better - CXR 07/12 no significant change - on Solu-Medrol per ID (07/13-) 2. Respiratory failure. - desaturated on 80% FiO2 BiPAP; now back on 100% FiO2 BiPAP - will attempt course of steroids (solumedrol) 3. Pulmonary embolism. - s/p heparin - Back on Lovenox as he cannot tolerate PO meds - D-Dimer 07/16 1.34 4. Troponin leak. - 2D echo showed LV EF 65% 5. Malnutrition - s/p PICC line and TPN (07/13) 6. Leukocytosis -ID following seen in [facility] Attempted venti-mask.. unsuccessful Has purulent discharge from eye Will add eye drops DC Gurdeep Solorio MD Jul 18, 2020 09:18
[2020-07-18] MEDS: Gentamicin 0.3% Opth Soln 5ml BOTH EYES SCH ×2 (11:49→17:15)
[2020-07-18] MEDS ORDERED: 1/2 NS 1000ml IV ONE (15:32)
--- NOTE | 2020-07-18 15:42 | Nephrology Progress Note ---
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 Full code. Labs reviewed. Discussed with pharmacy. Continue as is. July 17: Remains on TPN. Labs reviewed. Discussed with pharmacy. Continue as is. July 16: Remains on TPN. Labs reviewed. Sodium slightly elevated. Levemir dose increased for better blood sugar control. Discussed with pharmacy. Continue to monitor electrolytes. July 15: On TPN. Labs reviewed. Continue TPN as is. Adjust insulin for blood sugar control. Per orders. July 14: Patient started on TPN since last night. We will continue to monitor electrolytes and renal parameters and adjust TPN composition as needed. Discussed with pharmacy. July 13: Due for PICC line today and initiation of TPN. Low magnesium addressed. Continue per current management. July 12: Remains full code. Remains on BiPAP. Labs reviewed. Low potassium and phosphorus addressed. Awaiting initiation of TPN. Subjective ROS Limited/Unobtainable: Yes Objective Objective Last 24 Hour Vital Signs Date Time Temp Pulse Resp B/P (MAP) Pulse Ox O2 Delivery O2 Flow Rate FiO2 07/18/20 12:00 Bi-pap 90.0 07/18/20 12:00 93 07/18/20 12:00 100 07/18/20 12:00 98.6 101 20 118/83 (95) 98 07/18/20 08:00 99.3 103 20 143/89 (107) 100 07/18/20 08:00 104 07/18/20 08:00 Bi-pap 90.0 07/18/20 08:00 100 07/18/20 07:20 112 23 100 80 07/18/20 04:00 100 07/18/20 04:00 97.5 115 18 136/92 (107) 96 07/18/20 04:00 Bi-pap 80.0 07/18/20 03:43 115 07/18/20 03:05 112 24 96 80 07/18/20 01:48 129 24 100 07/18/20 00:00 80 07/18/20 00:00 98.1 89 18 109/88 (95) 100 07/18/20 00:00 Bi-pap 80.0 07/17/20 23:52 82 07/17/20 23:20 86 24 100 80 07/17/20 20:00 80 07/17/20 20:00 98 07/17/20 20:00 Bi-pap 80.0 07/17/20 20:00 98.1 104 17 113/86 (95) 100 07/17/20 19:15 100 19 99 80 07/17/20 16:00 80 07/17/20 16:00 118 07/17/20 16:00 Bi-pap 80.0 07/17/20 16:00 97.9 112 18 121/87 (98) 97 Intake and Output 07/17/20 07/18/20 19:00 07:00 Intake Total 960 ml 914 ml Output Total 400 ml 450 ml Balance 560 ml 464 ml IV Total 960 ml 914 ml Output Urine Total 400 ml 450 ml Current Medications Medications (Trade) Dose Ordered Sig/Yoselin Route PRN Reason Start Time Stop Time Status Last Admin Dose Admin Acetaminophen (Tylenol) 650 mg Q6H PRN ORAL For Pain 07/17/20 15:24 08/16/20 15:23 Acetaminophen (Tylenol) 650 mg Q6H PRN ORAL Temp >100.5 07/03/20 16:30 08/02/20 16:29 Acetaminophen (Tylenol) 650 mg Q6H PRN RECTAL Temp >100.5 07/04/20 20:45 08/03/20 20:44 07/04/20 21:07 Chlorhexidine Gluconate (Kalie-Hex 2%) 1 applic DAILY@2000 TOPIC 07/13/20 20:00 10/11/20 19:59 07/17/20 20:34 Dextrose 1,000 ml @ 0 mls/hr Q24H PRN IV PN interrupted or unavailable 07/11/20 12:15 08/10/20 12:14 Dextrose (Dextrose 50%) 25 ml Q30M PRN IV Hypoglycemia 07/11/20 12:15 10/09/20 12:14 Dextrose (Dextrose 50%) 50 ml Q30M PRN IV Hypoglycemia 07/11/20 12:15 10/09/20 12:14 Enoxaparin Sodium (Lovenox) 60 mg EVERY 12 HOURS SUBQ 07/05/20 10:30 10/03/20 10:29 07/18/20 08:50 Famotidine (Pepcid I.v.) 40 mg DAILY IVP 07/08/20 09:00 08/01/20 20:59 07/18/20 08:46 Fat Emulsion Intravenous 192 ml/Amino Acids/ Electrolytes/ Dextrose 1,920 ml @ 80 mls/hr Q24H IV 07/13/20 20:00 08/12/20 19:59 07/17/20 20:34 Gentamicin Sulfate (Garamycin 0.3% Opt Soln) 2 drop EVERY 6 HOURS BOTH EYES 07/18/20 11:00 07/25/20 10:59 07/18/20 11:49 Insulin Aspart (NovoLOG) BEFORE MEALS AND HS SUBQ 07/08/20 16:30 10/06/20 16:29 07/18/20 11:51 Insulin Detemir (Levemir) 15 units Q12HR SUBQ 07/16/20 21:00 10/13/20 20:59 07/18/20 08:51 Methylprednisolone Sodium Succinate (Solu-MEDROL) 40 mg DAILY IVP 07/16/20 09:00 10/14/20 08:59 07/18/20 08:46 Ondansetron HCl (Zofran) 4 mg Q6H PRN IVP Nausea & Vomiting 07/17/20 16:00 08/16/20 15:59 Laboratory Tests 07/17/20 20:45: POC Whole Blood Glucose 259H 07/18/20 01:31: Arterial Blood pH 7.386, Arterial Blood Partial Pressure CO2 39.9, Arterial Blood Partial Pressure O2 66.3L, Arterial Blood HCO3 23.4, Arterial Blood Oxygen Saturation 92.0L, Arterial Blood Base Excess -1.5, Roshan Test Positive 07/18/20 03:40: White Blood Count 14.6H, Red Blood Count 3.95L, Hemoglobin 12.3L, Hematocrit 36.5L, Mean Corpuscular Volume 92, Mean Corpuscular Hemoglobin 31.1H, Mean Corpuscular Hemoglobin Concent 33.6, Red Cell Distribution Width 12.6, Platelet Count 203, Mean Platelet Volume 7.6, Neutrophils (%) (Auto) , Lymphocytes (%) (Auto) , Monocytes (%) (Auto) , Eosinophils (%) (Auto) , Basophils (%) (Auto) , Differential Total Cells Counted 100, Neutrophils % (Manual) 94H, Lymphocytes % (Manual) 2L, Monocytes % (Manual) 4, Eosinophils % (Manual) 0, Basophils % (Manual) 0, Band Neutrophils 0, Platelet Estimate Adequate, Platelet Morphology Normal, Red Blood Cell Morphology Normal, Sodium Level 145, Potassium Level 3.8, Chloride Level 108H, Carbon Dioxide Level 30, Anion Gap 7, Blood Urea Nitrogen 31H, Creatinine 0.6, Estimat Glomerular Filtration Rate > 60, Glucose Level 286H , Uric Acid 1.9L, Calcium Level 8.9, Phosphorus Level 3.4, Magnesium Level 1.9, Total Bilirubin 0.3, Aspartate Amino Transf (AST/SGOT) 16, Alanine Aminotransferase (ALT/SGPT) 62, Alkaline Phosphatase 134H, Total Protein 6.2L, Albumin 1.9L, Globulin 4.3, Albumin/Globulin Ratio 0.4L 07/18/20 05:09: POC Whole Blood Glucose 246H Height (Feet): 5 Height (Inches): 4.00 Weight (Pounds): 146 General Appearance: no apparent distress EENT: other - on continous BIPAP Cardiovascular: tachycardia Respiratory/Chest: decreased breath sounds Abdomen: distended Jimmy Saul MD Jul 18, 2020 15:42
--- NOTE | 2020-07-18 16:49 | NUR ---
CASE MANAGEMENT:REVIEW 07/18/20 SI: COVID PNA. RESPIRATORY FAILURE PULMONARY EMBOLI 98.6 113 37 97% ON BIPAP W/90% FIO2 WBC+14.6 IS: TPN/IL @80/HR IV SOLUMEDROL 40MG QD IV LASIX QD LEVEMIR SQ Q12 IV PEPCID QD LOVENOX SQ Q12 : STEP DOWN UNIT DCP: FROM HOME PLAN: FAILED VENTI MASK ~ CONTINUE WITH BIPAP
--- NOTE | 2020-07-18 18:34 | NUR ---
NURSE NOTES: Patient becoming restless and pulling BiPAP masl and straps. Patient desaturates to 84%. Patient re-educated to keep BiPAP on and to not pull. Explained to patient in Wolof. Verbalized understanding but patient still reaches for BiPAP mask and straps. Dr Reyes office contacted, awaiting response.
--- NOTE | 2020-07-18 19:03 | NUR ---
NURSE NOTES: Patients O2 sat 64%. RT called, suctioning done, O2 sat probe changed. Patient A/O x4, responds to questions. Respirations labored, 36/min. Maximum O2 sat on BiPAP is 80%. HR elevated at 155. Dr Reyes office contacted, awaiting response.
--- NOTE | 2020-07-18 19:29 | NUR ---
NURSE NOTES: Dr Mejias office contacted regarding patient desaturating 70% on BiPAP. HR at 150. Awaiting call back.
--- NOTE | 2020-07-18 19:35 | NUR ---
NURSE HAND-OFF REPORT: Important Events on Shift:[ABG, eye drops] Patient Status: [FULL CODE] Diet: [NPO] Pending Orders: [] Pending Results/Labs:[] Pending MD notification:[] Latest Vital Signs: Temperature 97.5 , Pulse 90 , B/P 141 /95 , Respiratory Rate 20 , O2 SAT 99 , Bi-pap, O2 Flow Rate 90.0 . Vital Sign Comment: [] EKG Rhythm: Sinus Tachycardia Rhythm change?: N MD Notified?: Y -Dr Leung covering for Dr. Kailee MAY Response: Latest Mcdowell Fall Score: 60 Fall Risk: High Risk Safety Measures: Call light Within Reach, Bed Alarm Zone 1, Side Rails Side Rails x3, Bed position Low and Locked. Fall Precautions: Door Sign Report given to [Libia AGUIRRE].
--- NOTE | 2020-07-18 19:40 | NUR ---
NURSE NOTES: Received report from TIMOTHY Contreras. patient in bed restless awake,alert x2. On BIPAP 15/12 fi02 100% satting 80's%. skin warm and dry to touch. ST on cardiac monitor technician HR 150, tachypneic Resp 40 . no s/s of hypo/hyperglycemia. 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 previous nurse called Dr. Reyes and left message regarding patient ABG and pt desatting to 80 %. Instructed patient to do deep breathing and relaxation technique. encouraged patient to verbalized needs, fears and feelings to staff. Pt bed low and locked, call light in reach and bed alarm on. Covid +19. Airborne precaution maintained and observed. will continue plan of care.
--- NOTE | 2020-07-18 20:00 | NUR ---
NURSE NOTES: Charge nurse Called Dr. Reyes home number regarding patient desatting ABG done, patient on BIPAP at 15/12 fi02 100 satting 80-87 Addendum: 07/18/20 at 2016 by MATT JOHNSON RN satting 60-89%, HR 150, tachypneic resp 40 patient restless per patient he doesn't feel good. per Dr. Reyes transfer to ICU and intubate the pt.
--- NOTE | 2020-07-18 20:30 | NUR ---
NURSE NOTES: Dr. Kay came and assessed the patient when the MD came patient saturation increase to 95-98% patient awake,alert able to verbalize needs to staff. MD stayed for 20-30 mins and observed the patient. patient doesn't need to get intubated at this time. Charge nurse aware. ER MD called Dr. Reyes. will continue to monitor patient.
[2020-07-18] MEDS: TPN IV SCH (20:48)
[2020-07-18] MEDS: FAT EMULSION 20% IV SCH (20:48)
--- NOTE | 2020-07-18 20:53 | NUR ---
NURSE NOTES: patient in bed awake,alert instructed patient to do deep breathing and relaxation technique, instructed patient not to remove the bipap, encouraged patient to verbalized needs, fears and feelings to staff. patient with episode of removing bipap explained the importance v/s risk and benefits of BIPAP per patient okay. will rechecked patient. patient on BIPAP at 22/6 fi02 100% satting 98-100%, resp 21, HR 131 BP 110/65. Temp 98.1 axillary. call light within easy reach. will continue to monitor patient.
[2020-07-18] MEDS: Dyna-Hex 2% Top Sol 2oz TOPIC SCH (21:26)
--- NOTE | 2020-07-18 22:14 | NUR ---
RD ASSESSMENT & RECOMMENDATIONS SEE CARE ACTIVITY FOR COMPLETE ASSESSMENT DAILY ESTIMATED NEEDS: Needs based on pulmonary 62kg 25-30 kcals/kg [id number] total kcals 1.25-1.5 g protein/kg 77-93 g total protein 25-30 mL/kg 3019-6853 total fluid mLs NUTRITION DIAGNOSIS: Predicted poor po intake r/t respiratory status/ bipap use as evidenced by pt is covid ++, on bipap, desats when off device, diet now advanced from clear liquid diet to full liquid w/ prolonged poor PO/ meal refusals, now NPO, on TPN. CURRENT DIET:NPO, on TPN PO DIET RECOMMENDATIONS: rec AGING ROOM OPERATOR eval for diet texture-> Regular diet ENTERAL NUTRITION RECOMMENDATIONS: Consult RD for non-oral TF recs if part of POC and appropriate w/ BIPAP to provide PARENTERAL NUTRITION RECOMMENDATIONS: D/AA Rate: 72 IL Rate: 8 Total Rate: 80 Volume: 1920 % Dextrose: 14 % AA: 5.0 Energy (kcals/kg): 1552 Protein (g/kg protein): 86 Nonprotein KCALS: 1207 GIR (mg CHO/kg/min): 2.7 % Fat KCALS: 24.7 NCP: N Ratio: 88:1 TPN Comment: Maintain TPN IF NGT FEEDS AND ORAL DIET NOT APPROPRIATE DUE TO BIPAP USAGE -> UNABLE TO TOLERATE ORAL DIET, DESATS QUICKLY WHEN OFF BIPAP -> D14% AA 5.0% @ 72ml/hr + 20% IL @ 8ml/hr: total of 80ml/hr, all 3:1 ADDITIONAL RECOMMENDATIONS: 1) PT w/ prolonged poor PO/refusals -> now on TPN 2) Check HgA1C ----> 7.2 3) Monitor BGs closely w/ Solumedrol + TPN : BGs 200's-500's prior to TPN, monitor need to increase Levemir 4) Monitor LFTs closely w/ TPN: already elev prior to TPN 5) Monitor lytes, replete as needed 6) Monitor hydration status, need for additional fluids: elev BUN
[2020-07-19] VITALS (23 sets, daily range): BP systolic 83–167; BP diastolic 23–86
--- NOTE | 2020-07-19 | NUR ---
NURSE NOTES: patient in bed sleeping comfortably. on BIPAP at 22/6 fi02 100 satting 100%. 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 Resp 21. frequent visual checks continued. will continue plan of care.
[2020-07-19] MEDS: Gentamicin 0.3% Opth Soln 5ml BOTH EYES SCH ×4 (00:42→18:00)
--- NOTE | 2020-07-19 02:04 | Cardiology Progress Note ---
Subjective DATE OF SERVICE: Jul 18, 2020 Remains on bipap support, requiring high flow oxygen - still unable to taper. Left foot cold and bluish toe #3 - arterial duplex 07/17 without proximal obstruction. Monitor: sinus rhythm with tachycardia and rare ectopics 2D Echo - normal LVEF, no signs RV strain, normal PA pressure of 30mm Hg CXR (07/12) bilateral infiltrates unchanged; possible component of edema ABG (07/12) 7.48/34/57 Objective Last 24 Hour Vital Signs Date Time Temp Pulse Resp B/P (MAP) Pulse Ox O2 Delivery O2 Flow Rate FiO2 07/19/20 00:00 98.0 90 21 120/68 (85) 99 07/19/20 00:00 Bi-pap 100.0 07/19/20 00:00 115 07/18/20 23:28 120 22 100 100 07/18/20 21:15 135 07/18/20 20:00 Bi-pap 90.0 07/18/20 20:00 100 07/18/20 20:00 155 07/18/20 20:00 98.0 140 33 101/56 (71) 80 07/18/20 19:14 154 45 77 100 07/18/20 16:00 Bi-pap 90.0 07/18/20 16:00 100 07/18/20 16:00 95 07/18/20 16:00 97.5 90 20 141/95 (110) 99 07/18/20 15:05 113 37 97 90 07/18/20 12:00 Bi-pap 90.0 07/18/20 12:00 93 07/18/20 12:00 100 07/18/20 12:00 98.6 101 20 118/83 (95) 98 07/18/20 10:45 123 36 97 90 07/18/20 08:00 99.3 103 20 143/89 (107) 100 07/18/20 08:00 104 07/18/20 08:00 Bi-pap 90.0 07/18/20 08:00 100 07/18/20 07:20 112 23 100 80 07/18/20 04:00 100 07/18/20 04:00 97.5 115 18 136/92 (107) 96 07/18/20 04:00 Bi-pap 80.0 07/18/20 03:43 115 07/18/20 03:05 112 24 96 80 ROS: unchanged from 06/19/20 HEENT: other - bipap RHYTHM: ST LUNGS: bilat. rhonchi and rales CARDIAC: normal rate, regular rhythm, normal S1 and S2 ABDOMEN: normal bowel sounds, soft, distended EXTREMITIES: normal range of motion, non-tender, trace edema, other - left toes 1,2,3 with gangrenous changes - especially evident in 3rd toe. Laboratory Tests Test 07/18/20 03:40 07/18/20 05:09 07/18/20 19:15 White Blood Count 14.6 K/UL (4.8-10.8) H Red Blood Count 3.95 M/UL (4.70-6.10) L Hemoglobin 12.3 G/DL (14.2-18.0) L Hematocrit 36.5 % (42.0-52.0) L Mean Corpuscular Volume 92 FL (80-99) Mean Corpuscular Hemoglobin 31.1 PG (27.0-31.0) H Mean Corpuscular Hemoglobin Concent 33.6 G/DL (32.0-36.0) Red Cell Distribution Width 12.6 % (11.6-14.8) Platelet Count 203 K/UL (150-450) Mean Platelet Volume 7.6 FL (6.5-10.1) Neutrophils (%) (Auto) % (45.0-75.0) Lymphocytes (%) (Auto) % (20.0-45.0) Monocytes (%) (Auto) % (1.0-10.0) Eosinophils (%) (Auto) % (0.0-3.0) Basophils (%) (Auto) % (0.0-2.0) Differential Total Cells Counted 100 Neutrophils % (Manual) 94 % (45-75) H Lymphocytes % (Manual) 2 % (20-45) L Monocytes % (Manual) 4 % (1-10) Eosinophils % (Manual) 0 % (0-3) Basophils % (Manual) 0 % (0-2) Band Neutrophils 0 % (0-8) Platelet Estimate Adequate Platelet Morphology Normal Red Blood Cell Morphology Normal Sodium Level 145 MMOL/L (136-145) Potassium Level 3.8 MMOL/L (3.5-5.1) Chloride Level 108 MMOL/L (98-107) H Carbon Dioxide Level 30 MMOL/L (21-32) Anion Gap 7 mmol/L (5-15) Blood Urea Nitrogen 31 mg/dL (7-18) H Creatinine 0.6 MG/DL (0.55-1.30) Estimat Glomerular Filtration Rate > 60 mL/min (>60) Glucose Level 286 MG/DL (74-106) H Uric Acid 1.9 MG/DL (2.6-7.2) L Calcium Level 8.9 MG/DL (8.5-10.1) Phosphorus Level 3.4 MG/DL (2.5-4.9) Magnesium Level 1.9 MG/DL (1.8-2.4) Total Bilirubin 0.3 MG/DL (0.2-1.0) Aspartate Amino Transf (AST/SGOT) 16 U/L (15-37) Alanine Aminotransferase (ALT/SGPT) 62 U/L (12-78) Alkaline Phosphatase 134 U/L (46-116) H Total Protein 6.2 G/DL (6.4-8.2) L Albumin 1.9 G/DL (3.4-5.0) L Globulin 4.3 g/dL Albumin/Globulin Ratio 0.4 (1.0-2.7) L POC Whole Blood Glucose 246 MG/DL (74-106) H Arterial Blood pH 7.450 (7.350-7.450) Arterial Blood Partial Pressure CO2 40.2 mmHg (35.0-45.0) Arterial Blood Partial Pressure O2 32.9 mmHg (75.0-100.0) Arterial Blood HCO3 27.3 mmol/L (22.0-26.0) H Arterial Blood Oxygen Saturation 65.3 % (95-100) *L Arterial Blood Base Excess 3.1 (-2-2) H Roshan Test Positive Assessment/Plan Assessment/Plan COVID 19 PNA Hypoxia Ac pulmonary embolism Acute coronary syndrome/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 Sinus tachycardia Left LE ischemia Dehydration/hypernatremia Remains Critical and Guarded O2 suppl with taper as able. Diuresis for negative fluid balance; trend BNP Free water replacement Full anticoagulation Monitor for sustained atrial arrhythmias Replace lytes as needed Insulin cov'g by SS Aden Mejias MD Jul 19, 2020 02:04
[2020-07-19] MEDS: NovoLOG Insulin Flexpen SUBQ SCH ×4 (06:50→21:17)
--- NOTE | 2020-07-19 06:55 | NUR ---
NURSE NOTES: patient in bed with episode of desating 50-70% hands cold to touch. patient able to verbalize needs to staff. awake,alert. instructed patient to do deep breathing technique. will order ABG and will call MD. no s/s of hypo/hyperglycemia. frequent visual checks continued.
--- NOTE | 2020-07-19 07:05 | NUR ---
HAND-OFF: Report given to TIMOTHY Xiao.ABG done left message to Dr. Reyes and endorsed to am nurse to follow up. charge nurse aware.
--- NOTE | 2020-07-19 07:11 | NUR ---
NURSE NOTES: Paged Dr. Reyes regarding patient deSat to 60s, awaiting for callback, will continue to follow up.
--- NOTE | 2020-07-19 07:20 | NUR ---
NURSE NOTES: Received report from TIMOTHY Reza. Patient O2 sat. fluctuate 60-90s, paged. Patient on BIPAP 22/6 Fio2 100%. Patient grimace occasionally, Patient on NPO at this time, Patient on condom catheter, draining well to gravity. left upper arm PICC, TPN running @ 80ml/h. Patient on bilateral soft wrist restraints at this time, patient pulling BIPAP, O2 sat desaturated. Cap refill ,3 sec, warm to touch, able to move, Bed in lowest position, side rails upx2, call light within reach, bed alarm on, Will continue to monitor.
--- NOTE | 2020-07-19 07:37 | NUR ---
NURSE NOTES: Dr. Acuna called back, made aware patient O2 sat fluctuate 60-90s on BIPAP. Per Dr. Reyes , titrate BIPAP as RT recommendation, pending intubation at this time, Will continue to monitor.
--- NOTE | 2020-07-19 08:00 | NUR ---
NURSE NOTES: Patient restless, removing BIPAP, RN at the bedside O2 sat fluctuate from 40-90%, ST 140s. Unable to follow command, restless, occasional grimace.
--- NOTE | 2020-07-19 08:20 | NUR ---
CODE BLUE: See Code sheet which remains on paper. Sudden change in heart rhythm 150s to 40s, Patient was not responding, weak pulse, O2 sat to 15% on BIPAP.
--- NOTE | 2020-07-19 08:21 | NUR ---
NURSE NOTES: override Ativan for emergency use due to patient seizure.
[2020-07-19 08:43] LABS: ALANINE AMINOTRANSFERASE 44 U/L (12-78); ALBUMIN 1.5 G/DL (3.4-5.0); ALBUMIN/GLOBULIN RATIO 0.3 (1.0-2.7); ALKALINE PHOSPHATASE 130 U/L (46-116); ANION GAP 8 mmol/L (5-15); ASPARTATE AMINO TRANSFERASE 16 U/L (15-37); BILIRUBIN,TOTAL 0.4 MG/DL (0.2-1.0); BLOOD UREA NITROGEN 29 mg/dL (7-18); CALCIUM 8.7 MG/DL (8.5-10.1); CARBON DIOXIDE 29 MMOL/L (21-32); CHLORIDE 111 MMOL/L (98-107); CREATININE 0.6 MG/DL (0.55-1.30); PHOSPHORUS 3.3 MG/DL (2.5-4.9); POTASSIUM 3.9 MMOL/L (3.5-5.1); SODIUM 148 MMOL/L (136-145)
--- NOTE | 2020-07-19 08:52 | Emergency Room Report ---
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 COVID-19 Screening: Positive COVID-19 Nursing Documentation-[facility] Past Medical History: No Stated History Hx Hypertension: Yes Hx Diabetes: Yes Physical Exam Vital Signs Date Time Temp Pulse Resp B/P (MAP) Pulse Ox O2 Delivery O2 Flow Rate FiO2 07/15/20 07:44 102 07/15/20 08:00 Bi-pap 07/15/20 08:00 97.7 24 138/106 (117) 98 07/15/20 08:00 90 07/16/20 20:00 80.0 Procedures CPR/Code Blue CPR/Code Blue Narrative See CODE BLUE sheet for full narrative Intubation Intubation : Consent: Emergent Intubation Method: orotracheal Tube Size (cm): 7.5 Medications: Etomidate, Rocuronium Breath Sounds after Intubation: equal Intubation Complications: no complications Post Intubation Xray: Yes Attempts: One Patient Tolerated: Well Complications: None Medical Decision Making Diagnostic Impression: Primary Impression: Hypoxia Additional Impressions: Pneumonia due to COVID-19 virus Pulmonary embolus Qualified Codes: I26.09 - Other pulmonary embolism with acute cor pulmonale NSTEMI (non-ST elevated myocardial infarction) ER Course I was called to this CODE BLUE in [place]. Patient Covid positive. On BiPAP. Recent ABG shows hypoxia. Patient had seizure. No loss of pulse. Patient became severely hypoxic. Patient given Ativan. Patient intubated for airway protection. O2 sats improved. Chest x-ray confirms ET tube placement. Care resumed by admitting physician Last Vital Signs Date Time Temp Pulse Resp B/P (MAP) Pulse Ox O2 Delivery O2 Flow Rate FiO2 07/19/20 06:45 157 42 59 100 07/19/20 04:00 Bi-pap 100.0 07/19/20 04:00 98.0 136/72 (93) Status: improved Disposition: ADMITTED INPATIENT Condition: Critical Scripts No Active Prescriptions or Reported Meds Referrals: [facility],REFERRING (PCP) Kyle Lozoya MD Jul 19, 2020 08:52
--- NOTE | 2020-07-19 09:00 | NUR ---
RESPIRATORY NOTE: CODE BLUE Pt went into respiratory distress while on bipap. Pt began seizing. Pt was rolled over to his side to prevent aspiration. I removed bipap mask, suctioned orally with yankauer and began bagging. Manuel RT and I switched off bagging pt. ER MD arrived and successfully intubated pt. Pt was then transferred to ICU and placed on ventilator. Vent settings AC 16, 500, +10, 100% Fio2.
--- NOTE | 2020-07-19 10:25 | NUR ---
NURSE NOTES: Ativan pulled out during the code due to patient seizure, Patient stopped seizure without Ativan. Ativan cap is opened, unable to returned to [facility], Pharmacist made aware, Ativan wasted with Shaunna Mckinnon RN. Ativan Butts returned to pharmacy service associate.
[2020-07-19] MEDS ORDERED: Dyna-Hex 2% Top Sol 2oz TOPIC SCH (10:30)
[2020-07-19] MEDS: Solu-MEDROL 40mg Inj IVP SCH (10:30)
--- NOTE | 2020-07-19 10:30 | NUR ---
CODE BLUE: See Code sheet which remains on paper. Responded to CODE AVELINO in SDU. Patient was observed bedside to be agonally breathing. Immediately upon arrival, patient was noted to have a prolonged seizure. Patient was turned on his side and while suctioning the contents of his mouth. Noted was blood and other thick material. Patient began clinching his teeth making it difficult to suction. Patient became cyanotic and RTs began bagging. O2 Sats dropped down to the low 40s. ER MD arrived quickly and intubation occurred on the first attempt. Patient never lost a pulse. Patient was immediately transferred to the ICU where he was further stabilized. Patient was started on a Propofol drip and vent settings have been adjusted 2/2 very low O2 saturations. Patient continues to have labored breathing. Will continue to monitor and follow up with MD regarding this patient
[2020-07-19] MEDS: propofoL 1,000mg/100ml 100 ML IV SCH ×2 (10:46→19:10)
--- NOTE | 2020-07-19 10:56 | Nephrology Progress Note ---
Assessment/Plan Problem List: (1) Pneumonia due to COVID-19 virus (2) Malnutrition (3) Hypoxia (4) Pulmonary embolus Assessment COVID 19 PNA Hypoxia Ac pulmonary embolism Acute coronary syndrome/Probable NSTE myocardial infarction involving right heart - now stabilized with no signs of RV dysfxn Severe protein/calorie malnutrition Steroid induced diabetes mellitus No pulmonary hypertension Ac diastolic CHF improved Plan July 19: Now in ICU and intubated. Labs reviewed. Able from renal standpoint of view and on TPN. Continue per pulmonary and ID. July 18: Remains on TPN. Full code. Labs reviewed. Discussed with pharmacy. Continue as is. July 17: Remains on TPN. Labs reviewed. Discussed with pharmacy. Continue as is. July 16: Remains on TPN. Labs reviewed. Sodium slightly elevated. Levemir dose increased for better blood sugar control. Discussed with pharmacy. Continue to monitor electrolytes. July 15: On TPN. Labs reviewed. Continue TPN as is. Adjust insulin for blood sugar control. Per orders. July 14: Patient started on TPN since last night. We will continue to monitor electrolytes and renal parameters and adjust TPN composition as needed. Discussed with pharmacy. July 13: Due for PICC line today and initiation of TPN. Low magnesium addressed. Continue per current management. July 12: Remains full code. Remains on BiPAP. Labs reviewed. Low potassium and phosphorus addressed. Awaiting initiation of TPN. Subjective ROS Limited/Unobtainable: Yes Objective Objective Last 24 Hour Vital Signs Date Time Temp Pulse Resp B/P (MAP) Pulse Ox O2 Delivery O2 Flow Rate FiO2 07/19/20 10:46 36 120/73 Mechanical Ventilator 100 07/19/20 08:00 100 07/19/20 08:00 98.2 89 26 133/86 (102) 89 07/19/20 08:00 Bi-pap 07/19/20 06:45 157 42 59 100 07/19/20 04:00 Bi-pap 100.0 07/19/20 04:00 105 07/19/20 04:00 100 07/19/20 04:00 98.0 90 21 136/72 (93) 98 07/19/20 03:46 112 21 97 100 07/19/20 00:00 100 07/19/20 00:00 98.0 90 21 120/68 (85) 99 07/19/20 00:00 Bi-pap 100.0 07/19/20 00:00 115 07/18/20 23:28 120 22 100 100 07/18/20 21:15 135 07/18/20 20:00 Bi-pap 90.0 07/18/20 20:00 100 07/18/20 20:00 155 07/18/20 20:00 98.0 140 33 101/56 (71) 80 07/18/20 19:14 154 45 77 100 07/18/20 16:00 Bi-pap 90.0 07/18/20 16:00 100 07/18/20 16:00 95 07/18/20 16:00 97.5 90 20 141/95 (110) 99 07/18/20 15:05 113 37 97 90 07/18/20 12:00 Bi-pap 90.0 07/18/20 12:00 93 07/18/20 12:00 100 07/18/20 12:00 98.6 101 20 118/83 (95) 98 Intake and Output 07/18/20 07/19/20 19:00 07:00 Intake Total 960 ml 960 ml Output Total 900 ml 1200 ml Balance 60 ml -240 ml IV Total 960 ml 960 ml Output Urine Total 900 ml 1200 ml Current Medications Medications (Trade) Dose Ordered Sig/Yoselin Route PRN Reason Start Time Stop Time Status Last Admin Dose Admin Acetaminophen (Tylenol) 650 mg Q6H PRN ORAL For Pain 07/17/20 15:24 08/16/20 15:23 Acetaminophen (Tylenol) 650 mg Q6H PRN ORAL Temp >100.5 07/03/20 16:30 08/02/20 16:29 Acetaminophen (Tylenol) 650 mg Q6H PRN RECTAL Temp >100.5 07/04/20 20:45 08/03/20 20:44 07/04/20 21:07 Chlorhexidine Gluconate (Kalie-Hex 2%) 1 applic DAILY@1999 TOPIC 07/13/20 20:00 10/11/20 19:59 07/18/20 21:26 Chlorhexidine Gluconate (Kalie-Hex 2%) 1 applic ONCE TOPIC 07/19/20 10:30 07/19/20 11:30 Dextrose 1,000 ml @ 0 mls/hr Q24H PRN IV PN interrupted or unavailable 07/11/20 12:15 08/10/20 12:14 Dextrose (Dextrose 50%) 25 ml Q30M PRN IV Hypoglycemia 07/11/20 12:15 10/09/20 12:14 Dextrose (Dextrose 50%) 50 ml Q30M PRN IV Hypoglycemia 07/11/20 12:15 10/09/20 12:14 Enoxaparin Sodium (Lovenox) 60 mg EVERY 12 HOURS SUBQ 07/05/20 10:30 10/03/20 10:29 07/18/20 21:57 Famotidine (Pepcid I.v.) 40 mg DAILY IVP 07/08/20 09:00 08/01/20 20:59 07/19/20 10:30 Fat Emulsion Intravenous 192 ml/Amino Acids/ Electrolytes/ Dextrose 1,920 ml @ 80 mls/hr Q24H IV 07/13/20 20:00 08/12/20 19:59 07/18/20 20:48 Gentamicin Sulfate (Garamycin 0.3% Opt Soln) 2 drop EVERY 6 HOURS BOTH EYES 07/18/20 11:00 07/25/20 10:59 07/19/20 06:49 Insulin Aspart (NovoLOG) BEFORE MEALS AND HS SUBQ 07/08/20 16:30 10/06/20 16:29 07/19/20 06:50 Insulin Detemir (Levemir) 15 units Q12HR SUBQ 07/16/20 21:00 10/13/20 20:59 07/18/20 21:53 Methylprednisolone Sodium Succinate (Solu-MEDROL) 40 mg DAILY IVP 07/16/20 09:00 10/14/20 08:59 07/19/20 10:30 Ondansetron HCl (Zofran) 4 mg Q6H PRN IVP Nausea & Vomiting 07/17/20 16:00 08/16/20 15:59 Propofol 100 ml @ 1.92 mls/hr Q12H IV 07/19/20 10:00 07/21/20 09:59 07/19/20 10:46 Laboratory Tests 07/18/20 19:15: Arterial Blood pH 7.450, Arterial Blood Partial Pressure CO2 40.2, Arterial Blood Partial Pressure O2 32.9*L, Arterial Blood HCO3 27.3H, Arterial Blood Oxygen Saturation 65.3*L, Arterial Blood Base Excess 3.1H, Roshan Test Positive 07/19/20 06:00: Sodium Level 148H, Potassium Level 3.9, Chloride Level 111H, Carbon Dioxide Level 29, Anion Gap 8, Blood Urea Nitrogen 29H, Creatinine 0.6, Estimat Glomerular Filtration Rate > 60, Glucose Level 203H, Calcium Level 8.7, Phosphorus Level 3.3, Magnesium Level 1.9, Total Bilirubin 0.4, Aspartate Amino Transf (AST/SGOT) 16, Alanine Aminotransferase (ALT/SGPT) 44, Alkaline Phosphatase 130H, Total Protein 5.9L, Albumin 1.5L, Globulin 4.4, Albumin/Globulin Ratio 0.3L, Triglycerides Level 111 07/19/20 06:47: Arterial Blood pH 7.411, Arterial Blood Partial Pressure CO2 38.7, Arterial Blood Partial Pressure O2 33.5*L, Arterial Blood HCO3 24.0, Arterial Blood Oxygen Saturation 64.8*L, Arterial Blood Base Excess -0.4, Roshan Test Positive Height (Feet): 5 Height (Inches): 4.00 Weight (Pounds): 146 General Appearance: moderate distress EENT: other - Intubated on ventilator Cardiovascular: tachycardia Respiratory/Chest: decreased breath sounds Abdomen: distended Jimmy Saul MD Jul 19, 2020 10:56
[2020-07-19] MEDS: Levemir Flexpen SUBQ SCH ×2 (10:58→21:16)
--- NOTE | 2020-07-19 11:00 | NUR ---
RESPIRATORY NOTE: Increased PEEP to +12 to improve oxygenation. RN [facility] bedside.
--- NOTE | 2020-07-19 11:01 | Diagnostic Imaging Report ---
EXAM: XR Chest, 1 View CLINICAL HISTORY: LINE TECHNIQUE: Frontal view of the chest. COMPARISON: Chest radiograph on 07/18/2020 FINDINGS: Hardware: Endotracheal tube terminates in the region of the mid thoracic trachea, approximately 3.8 cm above the shantanu. Left-sided PICC line terminates near the junction of the SVC and right atrium. Lungs/pleura: Increased consolidations in the upper lungs. Diffuse hazy and interstitial opacities. Heart/mediastinum: Stable mild enlargement of the cardiac silhouette. Soft tissues: Unremarkable. Bones: No acute fracture. Degenerative changes of the spine. Upper abdomen: Gas-filled stomach partially visualized. IMPRESSION: 1. Endotracheal tube terminates in the region of the mid thoracic trachea, approximately 3.8 cm above the shantanu. Left-sided PICC line terminates near the junction of the SVC and right atrium. 2. Increased consolidations in the upper lungs. Diffuse hazy and interstitial opacities.
[2020-07-19] MEDS: Enoxaparin 60mg Inj SUBQ SCH ×2 (11:16→20:25)
--- NOTE | 2020-07-19 11:27 | Pulmonology Progress Note ---
Subjective ROS Limited/Unobtainable: Yes Interval Events: [place] hypoxic; coded; now intubated Constitutional: Denies: fever HEENT: Repors: no symptoms Respiratory: Reports: no symptoms Cardiovascular: Reports: no symptoms Gastrointestinal/Abdominal: Reports: no symptoms Allergies: Coded Allergies: No Known Allergies (Unverified , 06/18/20) Objective Last 24 Hour Vital Signs Date Time Temp Pulse Resp B/P (MAP) Pulse Ox O2 Delivery O2 Flow Rate FiO2 07/19/20 10:46 36 120/73 Mechanical Ventilator 100 07/19/20 08:00 100 07/19/20 08:00 98.2 89 26 133/86 (102) 89 07/19/20 08:00 Bi-pap 07/19/20 06:45 157 42 59 100 07/19/20 04:00 Bi-pap 100.0 07/19/20 04:00 105 07/19/20 04:00 100 07/19/20 04:00 98.0 90 21 136/72 (93) 98 07/19/20 03:46 112 21 97 100 07/19/20 00:00 100 07/19/20 00:00 98.0 90 21 120/68 (85) 99 07/19/20 00:00 Bi-pap 100.0 07/19/20 00:00 115 07/18/20 23:28 120 22 100 100 07/18/20 21:15 135 07/18/20 20:00 Bi-pap 90.0 07/18/20 20:00 100 07/18/20 20:00 155 07/18/20 20:00 98.0 140 33 101/56 (71) 80 07/18/20 19:14 154 45 77 100 07/18/20 16:00 Bi-pap 90.0 07/18/20 16:00 100 07/18/20 16:00 95 07/18/20 16:00 97.5 90 20 141/95 (110) 99 07/18/20 15:05 113 37 97 90 07/18/20 12:00 Bi-pap 90.0 07/18/20 12:00 93 07/18/20 12:00 100 07/18/20 12:00 98.6 101 20 118/83 (95) 98 Intake and Output 07/18/20 07/19/20 19:00 07:00 Intake Total 960 ml 960 ml Output Total 900 ml 1200 ml Balance 60 ml -240 ml IV Total 960 ml 960 ml Output Urine Total 900 ml 1200 ml General Appearance: no acute distress HEENT: normocephalic Respiratory: chest wall non-tender, lungs clear Cardiovascular: normal peripheral pulses Abdomen: normal bowel sounds Extremities: no cyanosis Laboratory Tests 07/18/20 19:15: Arterial Blood pH 7.450, Arterial Blood Partial Pressure CO2 40.2, Arterial Blood Partial Pressure O2 32.9*L, Arterial Blood HCO3 27.3H, Arterial Blood Oxygen Saturation 65.3*L, Arterial Blood Base Excess 3.1H, Roshan Test Positive 07/19/20 06:00: Sodium Level 148H, Potassium Level 3.9, Chloride Level 111H, Carbon Dioxide Level 29, Anion Gap 8, Blood Urea Nitrogen 29H, Creatinine 0.6, Estimat Glomerular Filtration Rate > 60, Glucose Level 203H, Calcium Level 8.7, Phosphorus Level 3.3, Magnesium Level 1.9, Total Bilirubin 0.4, Aspartate Amino Transf (AST/SGOT) 16, Alanine Aminotransferase (ALT/SGPT) 44, Alkaline Phosphatase 130H, Total Protein 5.9L, Albumin 1.5L, Globulin 4.4, Albumin/Globulin Ratio 0.3L, Triglycerides Level 111 07/19/20 06:47: Arterial Blood pH 7.411, Arterial Blood Partial Pressure CO2 38.7, Arterial Blood Partial Pressure O2 33.5*L, Arterial Blood HCO3 24.0, Arterial Blood Oxygen Saturation 64.8*L, Arterial Blood Base Excess -0.4, Roshan Test Positive 07/19/20 10:51: Arterial Blood pH 7.277L, Arterial Blood Partial Pressure CO2 57.5*H, Arterial Blood Partial Pressure O2 31.6*L, Arterial Blood HCO3 26.2H, Arterial Blood Oxygen Saturation 52.2*L, Arterial Blood Base Excess -1.4, Roshan Test Positive Current Medications Medications (Trade) Dose Ordered Sig/Yoselin Route PRN Reason Start Time Stop Time Status Last Admin Dose Admin Acetaminophen (Tylenol) 650 mg Q6H PRN ORAL For Pain 07/17/20 15:24 08/16/20 15:23 Acetaminophen (Tylenol) 650 mg Q6H PRN ORAL Temp >100.5 07/03/20 16:30 08/02/20 16:29 Acetaminophen (Tylenol) 650 mg Q6H PRN RECTAL Temp >100.5 07/04/20 20:45 08/03/20 20:44 07/04/20 21:07 Chlorhexidine Gluconate (Kalie-Hex 2%) 1 applic DAILY@1999 TOPIC 07/13/20 20:00 10/11/20 19:59 07/18/20 21:26 Chlorhexidine Gluconate (Kalie-Hex 2%) 1 applic ONCE TOPIC 07/19/20 10:30 07/19/20 11:30 Dextrose 1,000 ml @ 0 mls/hr Q24H PRN IV PN interrupted or unavailable 07/11/20 12:15 08/10/20 12:14 Dextrose (Dextrose 50%) 25 ml Q30M PRN IV Hypoglycemia 07/11/20 12:15 10/09/20 12:14 Dextrose (Dextrose 50%) 50 ml Q30M PRN IV Hypoglycemia 07/11/20 12:15 10/09/20 12:14 Enoxaparin Sodium (Lovenox) 60 mg EVERY 12 HOURS SUBQ 07/05/20 10:30 10/03/20 10:29 07/19/20 11:16 Famotidine (Pepcid I.v.) 40 mg DAILY IVP 07/08/20 09:00 08/01/20 20:59 07/19/20 10:30 Fat Emulsion Intravenous 192 ml/Amino Acids/ Electrolytes/ Dextrose 1,920 ml @ 80 mls/hr Q24H IV 07/13/20 20:00 08/12/20 19:59 07/18/20 20:48 Gentamicin Sulfate (Garamycin 0.3% Opth Soln) 2 drop EVERY 6 HOURS BOTH EYES 07/18/20 11:00 07/25/20 10:59 07/19/20 06:49 Insulin Aspart (NovoLOG) BEFORE MEALS AND HS SUBQ 07/08/20 16:30 10/06/20 16:29 07/19/20 06:50 Insulin Detemir (Levemir) 15 units Q12HR SUBQ 07/16/20 21:00 10/13/20 20:59 07/19/20 10:58 Methylprednisolone Sodium Succinate (Solu-MEDROL) 40 mg DAILY IVP 07/16/20 09:00 10/14/20 08:59 07/19/20 10:30 Ondansetron HCl (Zofran) 4 mg Q6H PRN IVP Nausea & Vomiting 07/17/20 16:00 08/16/20 15:59 Propofol 100 ml @ 1.92 mls/hr Q12H IV 07/19/20 10:00 07/21/20 09:59 07/19/20 10:46 Assessment/Plan Assessment/Plan 1. COVID-19 pneumonia. - s/p decadron (06/22-06/28) - s/p broad-spectrum antibiotics - s/p remdesivir - CXR 06/26 better - CXR 07/12 no significant change - on Solu-Medrol (07/13-) 2. Respiratory failure. - desaturated on 50%; coded - intubated - On AC; FiO2 100% 3. Pulmonary embolism. - s/p heparin - Back on Lovenox as he cannot tolerate PO meds - D-Dimer 07/16 1.34 4. Troponin leak. - 2D echo showed LV EF 65% 5. Malnutrition - s/p PICC line and TPN (07/13) 6. Leukocytosis -ID following Gurdeep Reyes MD Jul 19, 2020 11:26
--- NOTE | 2020-07-19 11:45 | NUR ---
RESPIRATORY NOTE: Changed ventilator settings to AC/PC delta P 24, rate 16, PEEP + 14, 100% fio2. RN [facility] seo.
--- NOTE | 2020-07-19 12:36 | NUR ---
NURSE NOTES: Patient is observed bedside. Breathing agonally. Several vent adjustments with the RT have been made. Patient is now on Propofol 30 mcgs with improvement of SPO2. Will hand off to TIMOTHY Russo
--- NOTE | 2020-07-19 12:38 | NUR ---
HAND-OFF: Report given to TIMOTHY Russo.
--- NOTE | 2020-07-19 16:45 | Cardiology Progress Note ---
Subjective DATE OF SERVICE: Jul 19, 2020 Now in ICU on full vent support; s/p code blue due to hypoxia and seizure. Left foot cold and bluish toe #3 - arterial duplex 07/17 without proximal obstruction. Monitor: sinus rhythm with tachycardia and rare ectopics 2D Echo - normal LVEF, no signs RV strain, normal PA pressure of 30mm Hg Objective Last 24 Hour Vital Signs Date Time Temp Pulse Resp B/P (MAP) Pulse Ox O2 Delivery O2 Flow Rate FiO2 07/19/20 15:00 38 99/38 Mechanical Ventilator 100 07/19/20 15:00 90 24 108/60 (76) 96 07/19/20 14:30 89 22 100/57 (71) 96 07/19/20 14:00 85 20 109/57 (74) 97 07/19/20 14:00 39 98/33 Mechanical Ventilator 100 07/19/20 13:50 148 39 100 07/19/20 13:30 89 20 94/60 (71) 96 07/19/20 13:00 33 115/54 Mechanical Ventilator 07/19/20 13:00 148 40 96/57 (70) 84 07/19/20 12:42 159 39 65 Mechanical Ventilator 100 07/19/20 12:00 Bi-pap 07/19/20 12:00 38 90/23 Mechanical Ventilator 100 07/19/20 12:00 83 07/19/20 12:00 155 40 89/23 (45) 83 07/19/20 11:45 34 96/38 Mechanical Ventilator 100 07/19/20 11:43 159 38 100 07/19/20 11:30 34 96/38 Mechanical Ventilator 100 07/19/20 11:15 32 115/54 Mechanical Ventilator 100 07/19/20 11:00 151 32 109/53 (71) 65 07/19/20 11:00 33 109/53 Mechanical Ventilator 100 07/19/20 10:46 36 120/73 Mechanical Ventilator 100 07/19/20 10:00 158 32 157/51 (86) 59 07/19/20 09:00 98.2 163 28 167/77 (107) 89 07/19/20 08:59 154 29 100 07/19/20 08:00 100 07/19/20 08:00 98.2 89 26 133/86 (102) 89 07/19/20 08:00 Bi-pap 07/19/20 08:00 154 07/19/20 06:45 157 42 59 100 07/19/20 04:00 Bi-pap 100.0 07/19/20 04:00 105 07/19/20 04:00 100 07/19/20 04:00 98.0 90 21 136/72 (93) 98 07/19/20 03:46 112 21 97 100 07/19/20 00:00 100 07/19/20 00:00 98.0 90 21 120/68 (85) 99 07/19/20 00:00 Bi-pap 100.0 07/19/20 00:00 115 07/18/20 23:28 120 22 100 100 07/18/20 21:15 135 07/18/20 20:00 Bi-pap 90.0 07/18/20 20:00 100 07/18/20 20:00 155 07/18/20 20:00 98.0 140 33 101/56 (71) 80 07/18/20 19:14 154 45 77 100 ROS: unchanged from 06/19/20 HEENT: Mechanically Ventilated, Thin secretions ET Tube, other - bipap RHYTHM: ST LUNGS: bilat. rhonchi and rales CARDIAC: normal rate, regular rhythm, normal S1 and S2 ABDOMEN: normal bowel sounds, soft, distended EXTREMITIES: normal range of motion, non-tender, trace edema, other - left toes 1,2,3 with gangrenous changes - especially evident in 3rd toe. Laboratory Tests Test 07/18/20 19:15 07/19/20 06:00 07/19/20 06:47 07/19/20 10:51 Arterial Blood pH 7.450 (7.350-7.450) 7.411 (7.350-7.450) 7.277 (7.350-7.450) Arterial Blood Partial Pressure CO2 40.2 mmHg (35.0-45.0) 38.7 mmHg (35.0-45.0) 57.5 mmHg (35.0-45.0) *H Arterial Blood Partial Pressure O2 32.9 mmHg (75.0-100.0) 33.5 mmHg (75.0-100.0) 31.6 mmHg (75.0-100.0) Arterial Blood HCO3 27.3 mmol/L (22.0-26.0) H 24.0 mmol/L (22.0-26.0) 26.2 mmol/L (22.0-26.0) H Arterial Blood Oxygen Saturation 65.3 % (95-100) *L 64.8 % (95-100) *L 52.2 % (95-100) *L Arterial Blood Base Excess 3.1 (-2-2) H -0.4 (-2-2) -1.4 (-2-2) Roshan Test Positive Positive Positive Sodium Level 148 MMOL/L (136-145) H Potassium Level 3.9 MMOL/L (3.5-5.1) Chloride Level 111 MMOL/L (98-107) H Carbon Dioxide Level 29 MMOL/L (21-32) Anion Gap 8 mmol/L (5-15) Blood Urea Nitrogen 29 mg/dL (7-18) H Creatinine 0.6 MG/DL (0.55-1.30) Estimat Glomerular Filtration Rate > 60 mL/min (>60) Glucose Level 203 MG/DL (74-106) H Calcium Level 8.7 MG/DL (8.5-10.1) Phosphorus Level 3.3 MG/DL (2.5-4.9) Magnesium Level 1.9 MG/DL (1.8-2.4) Total Bilirubin 0.4 MG/DL (0.2-1.0) Aspartate Amino Transf (AST/SGOT) 16 U/L (15-37) Alanine Aminotransferase (ALT/SGPT) 44 U/L (12-78) Alkaline Phosphatase 130 U/L (46-116) H Total Protein 5.9 G/DL (6.4-8.2) L Albumin 1.5 G/DL (3.4-5.0) L Globulin 4.4 g/dL Albumin/Globulin Ratio 0.3 (1.0-2.7) L Triglycerides Level 111 MG/DL (30-150) Test 07/19/20 16:08 POC Whole Blood Glucose Pending Assessment/Plan Assessment/Plan Acute respiratory failure COVID 19 PNA Hypoxia Ac pulmonary embolism Acute coronary syndrome/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 Sinus tachycardia Left LE ischemia Dehydration/hypernatremia Remains Critical and Guarded Vent support Hold diuresis for now; trend BNP Free water replacement Full anticoagulation Monitor for sustained atrial arrhythmias Replace lytes as needed Insulin cov'g by Aden Meléndez MD Jul 19, 2020 16:45
--- NOTE | 2020-07-19 19:20 | NUR ---
NURSE NOTES: Patient received from TIMOTHY Russo. Patient sedated with 7.5 ETT at 24cm lipline on ventilator AC 16 PC: PIP24 FiO2 100% PEEP 14. BP113/52 HR128 sinus tachy on monitor temp 102.0F axillary. Left upper arm running Diprivan 30mcg/kg/min and TPN @80ml/hr asymptomatic. OGT clamped and patent. Bride of nose DTI and left toe gangrene noted. Patient repositioned and oral care provided.
[2020-07-19] MEDS: Dyna-Hex 2% Top Sol 2oz TOPIC SCH (20:24)
[2020-07-19] MEDS: FAT EMULSION 20% IV SCH (20:28)
[2020-07-19] MEDS: TPN IV SCH (20:28)
--- NOTE | 2020-07-19 22:00 | NUR ---
NURSE NOTES: Patient sedated with 7.5 ETT at 24cm lipline on ventilator AC 16 PC: PIP24 FiO2 100% PEEP 14. BP105/24 HR127 sinus tachy on monitor. Left upper arm running Diprivan 30mcg/kg/min and TPN @80ml/hr asymptomatic. OGT clamped and patent. prn Tylenol suppository administered. External urinal draining dark logan urine. Patient repositioned and oral care provided.
[2020-07-20] VITALS (25 sets, daily range): BP systolic 80–149; BP diastolic 39–77
--- NOTE | 2020-07-20 | NUR ---
NURSE NOTES: Patient sedated RASS -2 with 7.5 ETT at 24cm lipline on ventilator AC 16 PC: PIP24 FiO2 100% PEEP 14. BP90/45 HR110 sinus tachy on monitor, temp 99.9F axillary. Left upper arm running Diprivan 30mcg/kg/min and TPN @80ml/hr asymptomatic. OGT clamped and patent. External urinal draining dark logan urine. Patient repositioned and oral care provided.
[2020-07-20] MEDS: Gentamicin 0.3% Opth Soln 5ml BOTH EYES SCH ×5 (00:29→23:44)
--- NOTE | 2020-07-20 02:00 | NUR ---
NURSE NOTES: Patient sedated with 7.5 ETT at 24cm lipline on ventilator AC 16 PC: PIP24 FiO2 100% PEEP 14. BP101/59 HR103 sinus tachy on monitor. Left upper arm running Diprivan 30mcg/kg/min and TPN @80ml/hr asymptomatic. OGT clamped and patent. External urinal draining dark logan urine. Patient repositioned and oral care provided.
[2020-07-20] MEDS: propofoL 1,000mg/100ml 100 ML IV SCH ×5 (02:19→23:28)
--- NOTE | 2020-07-20 04:00 | NUR ---
NURSE NOTES: Patient sedated with 7.5 ETT at 24cm lipline on ventilator AC 16 PC: PIP24 FiO2 100% PEEP 14. BP100/54 HR92 NSR on monitor and afebrile. Left upper arm running Diprivan 30mcg/kg/min and TPN @80ml/hr asymptomatic. OGT clamped and patent. External urinal draining dark logan urine. Capillary refill >3 sec on left foot. Patient given CHG bath, repositioned and oral care provided.
--- NOTE | 2020-07-20 06:00 | NUR ---
NURSE NOTES: Patient sedated with 7.5 ETT at 24cm lipline on ventilator AC 16 PC: PIP24 FiO2 100% PEEP 14. BP107/52 HR99 NSR on monitor. Left upper arm running Diprivan 30mcg/kg/min and TPN @80ml/hr asymptomatic. OGT clamped and patent. External catheter draining dark logan urine. Bride of nose DTI and left toes gangrene noted. Patient repositioned and oral care provided.
[2020-07-20] MEDS: NovoLOG Insulin Flexpen SUBQ SCH ×4 (06:17→21:36)
[2020-07-20 06:31] LABS: HEMATOCRIT 26.6 % (42.0-52.0); HEMOGLOBIN 8.6 G/DL (14.2-18.0); MEAN CORPUSCULAR VOLUME 95 FL (80-99); PLATELET COUNT 59 K/UL (150-450); RED CELL DISTRIBUTION WIDTH 13.4 % (11.6-14.8); WHITE BLOOD COUNT 15.1 K/UL (4.8-10.8)
--- NOTE | 2020-07-20 07:14 | NUR ---
NURSE HAND-OFF REPORT: Latest Vital Signs: Temperature 97.9 , Pulse 104 , B/P 106 /49 , Respiratory Rate 25 , O2 SAT 100 , Mechanical Ventilator, O2 Flow Rate . Vital Sign Comment: EKG Rhythm: Sinus Tachycardia Rhythm change?: N Notified?: Y -Dr Leung covering for Dr. Kailee MAY Response: Latest Mcdowell Fall Score: 60 Fall Risk: High Risk Safety Measures: Call light Within Reach, Bed Alarm Zone 1, Side Rails Side Rails x3, Bed position Low and Locked. Fall Precautions: Door Sign Report given to TIMOTHY Solano.
--- NOTE | 2020-07-20 07:15 | NUR ---
NURSE NOTES: Received report from TIMOTHY Olivas. Patient sedated RASS -2. Patient SR with HR 99, ETT 7.5 24cm lip line. Vent setting AC 16 PC:PIP 24 Fio2 100%, PEEP 14 O2 sat 100% at this time. Patient on bilateral soft wrist restraints, cap refill <3 sec, warm to touch. PICC line on left upper arm, IV on bilateral hand 22G, asymptomatic, patent, intact. Patient on Propofol @ 30mcg/kg/min RASS -2, TPN running @ 80m/h. Patient has OGT clamped and patent. Bed in lowest position, side rails upx3, call light within reach, bed alarm on, Will continue to monitor.
[2020-07-20 07:32] LABS: SODIUM 147 MMOL/L (136-145)
[2020-07-20 07:36] LABS: ALANINE AMINOTRANSFERASE 36 U/L (12-78); ALKALINE PHOSPHATASE 110 U/L (46-116); ANION GAP 12 mmol/L (5-15); ASPARTATE AMINO TRANSFERASE 24 U/L (15-37); BILIRUBIN,TOTAL 0.3 MG/DL (0.2-1.0); BLOOD UREA NITROGEN 65 mg/dL (7-18); CARBON DIOXIDE 24 MMOL/L (21-32); CHLORIDE 111 MMOL/L (98-107); CHOLESTEROL 97 MG/DL (< 200); HDL CHOLESTEROL 17 MG/DL (40-60); POTASSIUM 4.4 MMOL/L (3.5-5.1); TRIGLYCERIDES 137 MG/DL (30-150)
[2020-07-20 07:55] LABS: ALBUMIN 1.5 G/DL (3.4-5.0); ALBUMIN/GLOBULIN RATIO 0.5 (1.0-2.7); CALCIUM 7.8 MG/DL (8.5-10.1); CREATININE 1.3 MG/DL (0.55-1.30)
--- NOTE | 2020-07-20 07:59 | NUR ---
RADIOLOGY DEPT., CHEST X-RAY DONE.-P.DYE
[2020-07-20] MEDS: Enoxaparin 60mg Inj SUBQ SCH ×2 (08:02→21:00)
--- NOTE | 2020-07-20 08:21 | NUR ---
RADIOLOGY: PCXR COMPLETED 0800 HRS. NF
[2020-07-20] MEDS: Solu-MEDROL 40mg Inj IVP SCH ×2 (08:27→21:24)
[2020-07-20 08:43] LABS: PHOSPHORUS 5.5 MG/DL (2.5-4.9)
--- NOTE | 2020-07-20 08:50 | Nephrology Progress Note ---
Assessment/Plan Problem List: (1) Pneumonia due to COVID-19 virus (2) Malnutrition (3) Hypoxia (4) Pulmonary embolus Assessment COVID 19 PNA Hypoxia Ac pulmonary embolism Acute coronary syndrome/Probable NSTE myocardial infarction involving right heart - now stabilized with no signs of RV dysfxn Severe protein/calorie malnutrition Steroid induced diabetes mellitus No pulmonary hypertension Ac diastolic CHF improved Plan July 20: Remains in ICU, full code, intubated, on ventilator. On TPN. Labs reviewed. Serum creatinine and serum phosphorus rising. Adjustment done with pharmacy regarding TPN. Continue to monitor renal parameters. July 19: Now in ICU and intubated. Labs reviewed. Able from renal standpoint of view and on TPN. Continue per pulmonary and ID. July 18: Remains on TPN. Full code. Labs reviewed. Discussed with pharmacy. Continue as is. July 17: Remains on TPN. Labs reviewed. Discussed with pharmacy. Continue as is. July 16: Remains on TPN. Labs reviewed. Sodium slightly elevated. Levemir dose increased for better blood sugar control. Discussed with pharmacy. Continue to monitor electrolytes. July 15: On TPN. Labs reviewed. Continue TPN as is. Adjust insulin for blood sugar control. Per orders. July 14: Patient started on TPN since last night. We will continue to monitor electrolytes and renal parameters and adjust TPN composition as needed. Discussed with pharmacy. July 13: Due for PICC line today and initiation of TPN. Low magnesium addressed. Continue per current management. July 12: Remains full code. Remains on BiPAP. Labs reviewed. Low potassium and phosphorus addressed. Awaiting initiation of TPN. Subjective ROS Limited/Unobtainable: Yes Objective Objective Last 24 Hour Vital Signs Date Time Temp Pulse Resp B/P (MAP) Pulse Ox O2 Delivery O2 Flow Rate FiO2 07/20/20 07:00 25 106/49 Mechanical Ventilator 100 07/20/20 07:00 104 25 106/49 (68) 100 07/20/20 06:00 24 107/52 Mechanical Ventilator 100 07/20/20 06:00 99 24 107/52 (70) 100 07/20/20 05:00 93 30 101/63 (76) 100 07/20/20 05:00 27 100/54 Mechanical Ventilator 100 07/20/20 04:00 97 07/20/20 04:00 100 07/20/20 04:00 97.9 92 27 100/54 (69) 100 07/20/20 04:00 27 93/50 Mechanical Ventilator 100 07/20/20 04:00 Mechanical Ventilator 07/20/20 03:47 95 25 100 07/20/20 03:15 93 26 93/50 (64) 100 07/20/20 03:15 26 93/50 Mechanical Ventilator 100 07/20/20 03:00 99 27 80/43 (55) 99 07/20/20 03:00 27 80/43 Mechanical Ventilator 100 07/20/20 02:19 34 137/77 Mechanical Ventilator 100 07/20/20 02:00 103 30 137/77 (97) 96 07/20/20 02:00 30 137/77 Mechanical Ventilator 100 07/20/20 01:00 27 93/39 Mechanical Ventilator 100 07/20/20 01:00 104 27 93/39 (57) 99 07/20/20 00:00 99.9 110 32 90/45 (60) 99 07/20/20 00:00 32 90/45 Mechanical Ventilator 100 07/20/20 00:00 110 07/20/20 00:00 100 07/20/20 00:00 Mechanical Ventilator 07/19/20 23:01 119 33 100 07/19/20 23:00 116 34 99/57 (71) 97 07/19/20 23:00 34 99/57 Mechanical Ventilator 100 07/19/20 22:00 127 34 105/24 (51) 93 07/19/20 22:00 34 105/24 Mechanical Ventilator 100 07/19/20 21:00 34 92/59 Mechanical Ventilator 100 07/19/20 21:00 128 34 104/45 (64) 90 07/19/20 20:54 101.8 07/19/20 20:10 36 102/44 Mechanical Ventilator 100 07/19/20 20:00 129 07/19/20 20:00 102.0 132 36 102/44 (63) 91 07/19/20 20:00 Mechanical Ventilator 07/19/20 20:00 100 07/19/20 19:21 130 38 100 07/19/20 19:10 39 122/57 Mechanical Ventilator 100 07/19/20 19:00 133 39 113/52 (72) 89 07/19/20 19:00 38 113/52 Mechanical Ventilator 100 07/19/20 18:00 37 97/43 Mechanical Ventilator 100 07/19/20 18:00 135 37 97/43 (61) 91 07/19/20 17:30 137 37 101/35 (57) 91 07/19/20 17:00 37 96/30 Mechanical Ventilator 100 07/19/20 17:00 138 37 96/30 (52) 91 07/19/20 16:30 139 37 83/35 (51) 88 07/19/20 16:00 97.6 141 37 97/46 (63) 88 07/19/20 16:00 37 93/38 Mechanical Ventilator 100 07/19/20 16:00 Bi-pap 07/19/20 16:00 100 07/19/20 16:00 135 07/19/20 15:30 142 38 93/38 (56) 87 07/19/20 15:00 38 99/38 Mechanical Ventilator 100 07/19/20 15:00 90 24 108/60 (76) 96 07/19/20 14:30 89 22 100/57 (71) 96 07/19/20 14:00 85 20 109/57 (74) 97 07/19/20 14:00 39 98/33 Mechanical Ventilator 100 07/19/20 13:50 148 39 100 07/19/20 13:30 89 20 94/60 (71) 96 07/19/20 13:00 33 115/54 Mechanical Ventilator 07/19/20 13:00 148 40 96/57 (70) 84 07/19/20 12:42 159 39 65 Mechanical Ventilator 100 07/19/20 12:00 Bi-pap 07/19/20 12:00 38 90/23 Mechanical Ventilator 100 07/19/20 12:00 83 07/19/20 12:00 155 40 89/23 (45) 83 07/19/20 11:45 100 07/19/20 11:45 34 96/38 Mechanical Ventilator 100 07/19/20 11:43 159 38 100 07/19/20 11:30 34 96/38 Mechanical Ventilator 100 07/19/20 11:15 32 115/54 Mechanical Ventilator 100 07/19/20 11:00 151 32 109/53 (71) 65 07/19/20 11:00 33 109/53 Mechanical Ventilator 100 07/19/20 11:00 100 07/19/20 10:46 36 120/73 Mechanical Ventilator 100 07/19/20 10:00 158 32 157/51 (86) 59 07/19/20 09:00 100 07/19/20 09:00 98.2 163 28 167/77 (107) 89 07/19/20 08:59 154 29 100 Intake and Output 07/19/20 07/20/20 19:00 07:00 Intake Total 960.64 ml 1059.050 ml Output Total 550 ml 200 ml Balance 410.64 ml 859.050 ml IV Total 960.64 ml 1059.050 ml Output Urine Total 550 ml 200 ml # Bowel Movements 3 Current Medications Medications (Trade) Dose Ordered Sig/Yoselin Route PRN Reason Start Time Stop Time Status Last Admin Dose Admin Acetaminophen (Tylenol) 650 mg Q6H PRN ORAL For Pain 07/17/20 15:24 08/16/20 15:23 Acetaminophen (Tylenol) 650 mg Q6H PRN ORAL Temp >100.5 07/03/20 16:30 08/02/20 16:29 Acetaminophen (Tylenol) 650 mg Q6H PRN RECTAL Temp >100.5 07/04/20 20:45 08/03/20 20:44 07/19/20 20:24 Chlorhexidine Gluconate (Kalie-Hex 2%) 1 applic DAILY@2000 TOPIC 07/13/20 20:00 10/11/20 19:59 07/19/20 20:24 Dextrose 1,000 ml @ 0 mls/hr Q24H PRN IV PN interrupted or unavailable 07/11/20 12:15 08/10/20 12:14 Dextrose (Dextrose 50%) 25 ml Q30M PRN IV Hypoglycemia 07/11/20 12:15 10/09/20 12:14 Dextrose (Dextrose 50%) 50 ml Q30M PRN IV Hypoglycemia 07/11/20 12:15 10/09/20 12:14 Enoxaparin Sodium (Lovenox) 60 mg EVERY 12 HOURS SUBQ 07/05/20 10:30 10/03/20 10:29 07/19/20 20:25 Famotidine (Pepcid I.v.) 40 mg DAILY IVP 07/08/20 09:00 08/01/20 20:59 07/20/20 08:27 Fat Emulsion Intravenous 192 ml/Amino Acids/ Electrolytes/ Dextrose 1,920 ml @ 80 mls/hr Q24H IV 07/13/20 20:00 08/12/20 19:59 07/19/20 20:28 Gentamicin Sulfate (Garamycin 0.3% Opth Soln) 2 drop EVERY 6 HOURS BOTH EYES 07/18/20 11:00 07/25/20 10:59 07/20/20 06:16 Insulin Aspart (NovoLOG) BEFORE MEALS AND HS SUBQ 07/08/20 16:30 10/06/20 16:29 07/20/20 06:17 Insulin Detemir (Levemir) 20 units Q12HR SUBQ 07/20/20 09:00 10/13/20 20:59 UNV Methylprednisolone Sodium Succinate (Solu-MEDROL) 40 mg DAILY IVP 07/16/20 09:00 10/14/20 08:59 07/20/20 08:27 Ondansetron HCl (Zofran) 4 mg Q6H PRN IVP Nausea & Vomiting 07/17/20 16:00 08/16/20 15:59 Propofol 100 ml @ 1.92 mls/hr Q12H IV 07/19/20 10:00 07/21/20 09:59 07/20/20 02:19 Laboratory Tests 07/19/20 10:51: Arterial Blood pH 7.277L, Arterial Blood Partial Pressure CO2 57.5*H, Arterial Blood Partial Pressure O2 31.6*L, Arterial Blood HCO3 26.2H, Arterial Blood Oxygen Saturation 52.2*L, Arterial Blood Base Excess -1.4, Roshan Test Positive 07/19/20 16:08: POC Whole Blood Glucose [Pending] 07/20/20 05:27: White Blood Count 15.1H, Red Blood Count 2.80L, Hemoglobin 8.6L, Hematocrit 26.6L, Mean Corpuscular Volume 95, Mean Corpuscular Hemoglobin 30.8, Mean Corpuscular Hemoglobin Concent 32.4, Red Cell Distribution Width 13.4, Platelet Count 59L, Mean Platelet Volume 9.1, Neutrophils (%) (Auto) , Lymphocytes (%) (Auto) , Monocytes (%) (Auto) , Eosinophils (%) (Auto) , Basophils (%) (Auto) , Differential Total Cells Counted 100, Neutrophils % (Manual) 86H, Lymphocytes % (Manual) 7L, Monocytes % (Manual) 2, Eosinophils % (Manual) 0, Basophils % (Manu al) 0, Band Neutrophils 5, Platelet Estimate DecreasedL, Platelet Morphology Normal, Hypochromasia 3+, Sodium Level 147H, Potassium Level 4.4, Chloride Level 111H, Carbon Dioxide Level 24, Anion Gap 12, Blood Urea Nitrogen 65H, Creatinine 1.3#, Estimat Glomerular Filtration Rate 58.2, Glucose Level 260H, Calcium Level 7.8L, Phosphorus Level 5.5H, Magnesium Level 1.9, Total Bilirubin 0.3, Aspartate Amino Transf (AST/SGOT) 24, Alanine Aminotransferase (ALT/SGPT) 36, Alkaline Phosphatase 110, C-Reactive Protein, Quantitative < 0.4, Pro-B-Type Natriuretic Peptide 3425H, Total Protein 4.3L, Albumin 1.5L, Globulin 2.8, Albumin/Globulin Ratio 0.5L, Triglycerides Level 137, Cholesterol Level 97, LDL Cholesterol 39, HDL Cholesterol 17L, Cholesterol/HDL Ratio 5.7H 07/20/20 08:19: Arterial Blood pH 7.294L, Arterial Blood Partial Pressure CO2 53.5H, Arterial Blood Partial Pressure O2 79.1, Arterial Blood HCO3 25.4, Arterial Blood Oxygen Saturation 94.0L, Arterial Blood Base Excess -1.6, Roshan Test Positive Height (Feet): 5 Height (Inches): 4.00 Weight (Pounds): 146 General Appearance: no apparent distress EENT: other - Intubated on ventilator Cardiovascular: tachycardia Respiratory/Chest: decreased breath sounds Abdomen: distended Jimmy Saul MD Jul 20, 2020 08:50
[2020-07-20] MEDS: Levemir Flexpen SUBQ SCH ×2 (08:53→21:35)
--- NOTE | 2020-07-20 10:30 | NUR ---
NURSE NOTES: Dr. Falk at the bedside, made aware patient last night fever T 102, now T98s, made aware of WBC level today, no new order received at this time.
--- NOTE | 2020-07-20 10:58 | NUR ---
NURSE NOTES: Dr. Reyes made aware of result of ABG today, no new order received at this time.
--- NOTE | 2020-07-20 10:59 | NUR ---
NURSE NOTES: Dr. Reyes aware of gangrene toes on left side, Per MD will call Dr. Doe for consult, aware of decrease in Hgb and platelet today, will follow up with Dr. Doe. Per MD, renew order for Propofol. made aware patient's family member, would like to speak to MD tele :[phone]. Order noted, entered, carried out. made aware patient green colored from OGT, will call GI consult, Will continue to follow up.
--- NOTE | 2020-07-20 11:17 | Pulmonology Progress Note ---
Subjective ROS Limited/Unobtainable: Yes Interval Events: [place] hypoxic; coded; now intubated Constitutional: Denies: fever HEENT: Repors: no symptoms Respiratory: Reports: no symptoms Cardiovascular: Reports: no symptoms Gastrointestinal/Abdominal: Reports: no symptoms Allergies: Coded Allergies: No Known Allergies (Unverified , 06/18/20) Objective Last 24 Hour Vital Signs Date Time Temp Pulse Resp B/P (MAP) Pulse Ox O2 Delivery O2 Flow Rate FiO2 07/20/20 10:40 30 119/60 Mechanical Ventilator 100 07/20/20 10:39 28 127/68 Mechanical Ventilator 100 07/20/20 10:00 32 111/54 Mechanical Ventilator 100 07/20/20 10:00 96 32 111/60 (77) 92 07/20/20 09:00 28 118/60 Mechanical Ventilator 100 07/20/20 09:00 98 28 118/60 (79) 93 07/20/20 08:00 26 105/54 Mechanical Ventilator 100 07/20/20 08:00 99 07/20/20 08:00 Mechanical Ventilator 07/20/20 08:00 97.8 101 26 105/54 (71) 99 07/20/20 08:00 100 07/20/20 07:05 100 25 100 07/20/20 07:00 25 106/49 Mechanical Ventilator 100 07/20/20 07:00 104 25 106/49 (68) 100 07/20/20 06:00 24 107/52 Mechanical Ventilator 100 07/20/20 06:00 99 24 107/52 (70) 100 07/20/20 05:00 93 30 101/63 (76) 100 07/20/20 05:00 27 100/54 Mechanical Ventilator 100 07/20/20 04:00 97 07/20/20 04:00 100 07/20/20 04:00 97.9 92 27 100/54 (69) 100 07/20/20 04:00 27 93/50 Mechanical Ventilator 100 07/20/20 04:00 Mechanical Ventilator 07/20/20 03:47 95 25 100 07/20/20 03:15 93 26 93/50 (64) 100 07/20/20 03:15 26 93/50 Mechanical Ventilator 100 07/20/20 03:00 99 27 80/43 (55) 99 07/20/20 03:00 27 80/43 Mechanical Ventilator 100 07/20/20 02:19 34 137/77 Mechanical Ventilator 100 07/20/20 02:00 103 30 137/77 (97) 96 07/20/20 02:00 30 137/77 Mechanical Ventilator 100 07/20/20 01:00 27 93/39 Mechanical Ventilator 100 07/20/20 01:00 104 27 93/39 (57) 99 07/20/20 00:00 99.9 110 32 90/45 (60) 99 07/20/20 00:00 32 90/45 Mechanical Ventilator 100 07/20/20 00:00 110 07/20/20 00:00 100 07/20/20 00:00 Mechanical Ventilator 07/19/20 23:01 119 33 100 07/19/20 23:00 116 34 99/57 (71) 97 07/19/20 23:00 34 99/57 Mechanical Ventilator 100 07/19/20 22:00 127 34 105/24 (51) 93 07/19/20 22:00 34 105/24 Mechanical Ventilator 100 07/19/20 21:00 34 92/59 Mechanical Ventilator 100 07/19/20 21:00 128 34 104/45 (64) 90 07/19/20 20:54 101.8 07/19/20 20:10 36 102/44 Mechanical Ventilator 100 07/19/20 20:00 129 07/19/20 20:00 102.0 132 36 102/44 (63) 91 07/19/20 20:00 Mechanical Ventilator 07/19/20 20:00 100 07/19/20 19:21 130 38 100 07/19/20 19:10 39 122/57 Mechanical Ventilator 100 07/19/20 19:00 133 39 113/52 (72) 89 07/19/20 19:00 38 113/52 Mechanical Ventilator 100 07/19/20 18:00 37 97/43 Mechanical Ventilator 100 07/19/20 18:00 135 37 97/43 (61) 91 07/19/20 17:30 137 37 101/35 (57) 91 07/19/20 17:00 37 96/30 Mechanical Ventilator 100 07/19/20 17:00 138 37 96/30 (52) 91 07/19/20 16:30 139 37 83/35 (51) 88 07/19/20 16:00 97.6 141 37 97/46 (63) 88 07/19/20 16:00 37 93/38 Mechanical Ventilator 100 07/19/20 16:00 Bi-pap 07/19/20 16:00 100 07/19/20 16:00 135 07/19/20 15:30 142 38 93/38 (56) 87 07/19/20 15:00 38 99/38 Mechanical Ventilator 100 07/19/20 15:00 90 24 108/60 (76) 96 07/19/20 14:30 89 22 100/57 (71) 96 07/19/20 14:00 85 20 109/57 (74) 97 07/19/20 14:00 39 98/33 Mechanical Ventilator 100 07/19/20 13:50 148 39 100 07/19/20 13:30 89 20 94/60 (71) 96 07/19/20 13:00 33 115/54 Mechanical Ventilator 07/19/20 13:00 148 40 96/57 (70) 84 07/19/20 12:42 159 39 65 Mechanical Ventilator 100 07/19/20 12:00 Bi-pap 07/19/20 12:00 38 90/23 Mechanical Ventilator 100 07/19/20 12:00 83 07/19/20 12:00 155 40 89/23 (45) 83 07/19/20 11:45 100 07/19/20 11:45 34 96/38 Mechanical Ventilator 100 07/19/20 11:43 159 38 100 07/19/20 11:30 34 96/38 Mechanical Ventilator 100 07/19/20 11:15 32 115/54 Mechanical Ventilator 100 Intake and Output 07/19/20 07/20/20 19:00 07:00 Intake Total 960.64 ml 1059.050 ml Output Total 550 ml 200 ml Balance 410.64 ml 859.050 ml IV Total 960.64 ml 1059.050 ml Output Urine Total 550 ml 200 ml # Bowel Movements 3 General Appearance: no acute distress HEENT: normocephalic Respiratory: chest wall non-tender, lungs clear Cardiovascular: normal peripheral pulses Abdomen: normal bowel sounds Extremities: no cyanosis Laboratory Tests 07/19/20 16:08: POC Whole Blood Glucose [Pending] 07/20/20 05:27: White Blood Count 15.1H, Red Blood Count 2.80L, Hemoglobin 8.6L, Hematocrit 26.6L, Mean Corpuscular Volume 95, Mean Corpuscular Hemoglobin 30.8, Mean Corpuscular Hemoglobin Concent 32.4, Red Cell Distribution Width 13.4, Platelet Count 59L, Mean Platelet Volume 9.1, Neutrophils (%) (Auto) , Lymphocytes (%) (Auto) , Monocytes (%) (Auto) , Eosinophils (%) (Auto) , Basophils (%) (Auto) , Differential Total Cells Counted 100, Neutrophils % (Manual) 86H, Lymphocytes % (Manual) 7L, Monocytes % (Manual) 2, Eosinophils % (Manual) 0, Basophils % (Manual) 0, Band Neutrophils 5, Platelet Estimate DecreasedL, Platelet Morphology Normal, Hypochromasia 3+, Sodium Level 147H, Potassium Level 4.4, Chloride Level 111H, Carbon Dioxide Level 24, Anion Gap 12, Blood Urea Nitrogen 65H, Creatinine 1.3#, Estimat Glomerular Filtration Rate 58.2, Glucose Level 260H, Calcium Level 7.8L, Phosphorus Level 5.5H, Magnesium Level 1.9, Total Bilirubin 0.3, Aspartate Amino Transf (AST/SGOT) 24, Alanine Aminotransferase (ALT/SGPT) 36, Alkaline Phosphatase 110, C-Reactive Protein, Quantitative < 0.4, Pro-B-Type Natriuretic Peptide 3425H, Total Protein 4.3L, Albumin 1.5L, Globulin 2.8, Albumin/Globulin Ratio 0.5L, Triglycerides Level 137, Cholesterol Level 97, LDL Cholesterol 39, HDL Cholesterol 17L, Cholesterol/HDL Ratio 5.7H 07/20/20 08:19: Arterial Blood pH 7.294L, Arterial Blood Partial Pressure CO2 53.5H, Arterial Bl ood Partial Pressure O2 79.1, Arterial Blood HCO3 25.4, Arterial Blood Oxygen Saturation 94.0L, Arterial Blood Base Excess -1.6, Roshan Test Positive Current Medications Medications (Trade) Dose Ordered Sig/Yoselin Route PRN Reason Start Time Stop Time Status Last Admin Dose Admin Acetaminophen (Tylenol) 650 mg Q6H PRN ORAL For Pain 07/17/20 15:24 08/16/20 15:23 Acetaminophen (Tylenol) 650 mg Q6H PRN ORAL Temp >100.5 07/03/20 16:30 08/02/20 16:29 Acetaminophen (Tylenol) 650 mg Q6H PRN RECTAL Temp >100.5 07/04/20 20:45 2/8/21 20:44 07/19/20 20:24 Chlorhexidine Gluconate (Kalie-Hex 2%) 1 applic DAILY@2000 TOPIC 07/13/20 20:00 10/11/20 19:59 07/19/20 20:24 Dextrose 1,000 ml @ 0 mls/hr Q24H PRN IV PN interrupted or unavailable 07/11/20 12:15 08/10/20 12:14 Dextrose (Dextrose 50%) 25 ml Q30M PRN IV Hypoglycemia 07/11/20 12:15 10/09/20 12:14 Dextrose (Dextrose 50%) 50 ml Q30M PRN IV Hypoglycemia 07/11/20 12:15 10/09/20 12:14 Enoxaparin Sodium (Lovenox) 60 mg EVERY 12 HOURS SUBQ 07/05/20 10:30 10/03/20 10:29 07/19/20 20:25 Famotidine (Pepcid I.v.) 40 mg DAILY IVP 07/08/20 09:00 08/01/20 20:59 07/20/20 08:27 Fat Emulsion Intravenous 192 ml/Amino Acids/ Electrolytes/ Dextrose 1,920 ml @ 80 mls/hr Q24H IV 07/13/20 20:00 07/20/20 19:59 07/19/20 20:28 Fat Emulsion Intravenous 192 ml/Amino Acids/ Electrolytes/ Dextrose 1,920 ml @ 80 mls/hr Q24H IV 07/20/20 20:00 08/19/20 19:59 Gentamicin Sulfate (Garamycin 0.3% Opth Soln) 2 drop EVERY 6 HOURS BOTH EYES 07/18/20 11:00 07/25/20 10:59 07/20/20 06:16 Insulin Aspart (NovoLOG) BEFORE MEALS AND HS SUBQ 07/08/20 16:30 10/06/20 16:29 07/20/20 06:17 Insulin Detemir (Levemir) 20 units Q12HR SUBQ 07/20/20 09:00 10/13/20 20:59 07/20/20 08:53 Methylprednisolone Sodium Succinate (Solu-MEDROL) 40 mg DAILY IVP 07/16/20 09:00 10/14/20 08:59 07/20/20 08:27 Ondansetron HCl (Zofran) 4 mg Q6H PRN IVP Nausea & Vomiting 07/17/20 16:00 08/16/20 15:59 Propofol 100 ml @ 0 mls/hr Q12H IV 07/20/20 11:30 07/22/20 11:29 Assessment/Plan Assessment/Plan 1. COVID-19 pneumonia. - s/p decadron (06/22-06/28) - s/p broad-spectrum antibiotics - s/p remdesivir - CXR 06/26 better - CXR 07/12 no significant change - on Solu-Medrol (07/13-) - Has RUL collapse; will intensify pulmonary hygiene - Cannot bronch... high risk 2. Respiratory failure. - desaturated on 50%; coded - intubated - On AC; FiO2 100% 3. Pulmonary embolism. - s/p heparin - Back on Lovenox as he cannot tolerate PO meds - D-Dimer 07/16 1.34 4. Troponin leak. - 2D echo showed LV EF 65% 5. Malnutrition - s/p PICC line and TPN (07/13) 6. Leukocytosis -ID following 7. Toe discoloration - suspect HIT -Will consult hematology Discussed with Poor prognosis Gurdeep Reyes MD Jul 20, 2020 11:17
[2020-07-20] MEDS ORDERED: Argatroban per pharmacy MISC PRN (11:45)
--- NOTE | 2020-07-20 11:51 | Infectious Diseases Prog Note ---
Assessment/Plan Assessment/Plan antibiotics : none A 1. COVID 19 pneumonia on 100 % Fi O2 with 95 % saturation s/p remdesivir 2. pulmonary embolism 3. respiratory failure P 1. continue solumedrol increase dose 2. continue isolation Subjective ROS Limited/Unobtainable: Yes Allergies: Coded Allergies: No Known Allergies (Unverified , 06/18/20) Objective Last 24 Hour Vital Signs Date Time Temp Pulse Resp B/P (MAP) Pulse Ox O2 Delivery O2 Flow Rate FiO2 07/20/20 11:00 97 29 138/70 (92) 95 07/20/20 10:40 30 119/60 Mechanical Ventilator 100 07/20/20 10:39 28 127/68 Mechanical Ventilator 100 07/20/20 10:00 32 111/54 Mechanical Ventilator 100 07/20/20 10:00 96 32 111/60 (77) 92 07/20/20 09:00 28 118/60 Mechanical Ventilator 100 07/20/20 09:00 98 28 118/60 (79) 93 07/20/20 08:00 26 105/54 Mechanical Ventilator 100 07/20/20 08:00 99 07/20/20 08:00 Mechanical Ventilator 07/20/20 08:00 97.8 101 26 105/54 (71) 99 07/20/20 08:00 100 07/20/20 07:05 100 25 100 07/20/20 07:00 25 106/49 Mechanical Ventilator 100 07/20/20 07:00 104 25 106/49 (68) 100 07/20/20 06:00 24 107/52 Mechanical Ventilator 100 07/20/20 06:00 99 24 107/52 (70) 100 07/20/20 05:00 93 30 101/63 (76) 100 07/20/20 05:00 27 100/54 Mechanical Ventilator 100 07/20/20 04:00 97 07/20/20 04:00 100 07/20/20 04:00 97.9 92 27 100/54 (69) 100 07/20/20 04:00 27 93/50 Mechanical Ventilator 100 07/20/20 04:00 Mechanical Ventilator 07/20/20 03:47 95 25 100 07/20/20 03:15 93 26 93/50 (64) 100 07/20/20 03:15 26 93/50 Mechanical Ventilator 100 07/20/20 03:00 99 27 80/43 (55) 99 07/20/20 03:00 27 80/43 Mechanical Ventilator 100 07/20/20 02:19 34 137/77 Mechanical Ventilator 100 07/20/20 02:00 103 30 137/77 (97) 96 07/20/20 02:00 30 137/77 Mechanical Ventilator 100 07/20/20 01:00 27 93/39 Mechanical Ventilator 100 07/20/20 01:00 104 27 93/39 (57) 99 07/20/20 00:00 99.9 110 32 90/45 (60) 99 07/20/20 00:00 32 90/45 Mechanical Ventilator 100 07/20/20 00:00 110 07/20/20 00:00 100 07/20/20 00:00 Mechanical Ventilator 07/19/20 23:01 119 33 100 07/19/20 23:00 116 34 99/57 (71) 97 07/19/20 23:00 34 99/57 Mechanical Ventilator 100 07/19/20 22:00 127 34 105/24 (51) 93 07/19/20 22:00 34 105/24 Mechanical Ventilator 100 07/19/20 21:00 34 92/59 Mechanical Ventilator 100 07/19/20 21:00 128 34 104/45 (64) 90 07/19/20 20:54 101.8 07/19/20 20:10 36 102/44 Mechanical Ventilator 100 07/19/20 20:00 129 07/19/20 20:00 102.0 132 36 102/44 (63) 91 07/19/20 20:00 Mechanical Ventilator 07/19/20 20:00 100 07/19/20 19:21 130 38 100 07/19/20 19:10 39 122/57 Mechanical Ventilator 100 07/19/20 19:00 133 39 113/52 (72) 89 07/19/20 19:00 38 113/52 Mechanical Ventilator 100 07/19/20 18:00 37 97/43 Mechanical Ventilator 100 07/19/20 18:00 135 37 97/43 (61) 91 07/19/20 17:30 137 37 101/35 (57) 91 07/19/20 17:00 37 96/30 Mechanical Ventilator 100 07/19/20 17:00 138 37 96/30 (52) 91 07/19/20 16:30 139 37 83/35 (51) 88 07/19/20 16:00 97.6 141 37 97/46 (63) 88 07/19/20 16:00 37 93/38 Mechanical Ventilator 100 07/19/20 16:00 Bi-pap 07/19/20 16:00 100 07/19/20 16:00 135 07/19/20 15:30 142 38 93/38 (56) 87 07/19/20 15:00 38 99/38 Mechanical Ventilator 100 07/19/20 15:00 90 24 108/60 (76) 96 07/19/20 14:30 89 22 100/57 (71) 96 07/19/20 14:00 85 20 109/57 (74) 97 07/19/20 14:00 39 98/33 Mechanical Ventilator 100 07/19/20 13:50 148 39 100 07/19/20 13:30 89 20 94/60 (71) 96 07/19/20 13:00 33 115/54 Mechanical Ventilator 07/19/20 13:00 148 40 96/57 (70) 84 07/19/20 12:42 159 39 65 Mechanical Ventilator 100 07/19/20 12:00 Bi-pap 07/19/20 12:00 38 90/23 Mechanical Ventilator 100 07/19/20 12:00 83 07/19/20 12:00 155 40 89/23 (45) 83 Height (Feet): 5 Height (Inches): 4.00 Weight (Pounds): 146 Laboratory Tests Test 07/19/20 16:08 07/20/20 05:27 07/20/20 08:19 POC Whole Blood Glucose Pending White Blood Count 15.1 K/UL (4.8-10.8) H Red Blood Count 2.80 M/UL (4.70-6.10) L Hemoglobin 8.6 G/DL (14.2-18.0) L Hematocrit 26.6 % (42.0-52.0) L Mean Corpuscular Volume 95 FL (80-99) Mean Corpuscular Hemoglobin 30.8 PG (27.0-31.0) Mean Corpuscular Hemoglobin Concent 32.4 G/DL (32.0-36.0) Red Cell Distribution Width 13.4 % (11.6-14.8) Platelet Count 59 K/UL (150-450) L Mean Platelet Volume 9.1 FL (6.5-10.1) Neutrophils (%) (Auto) % (45.0-75.0) Lymphocytes (%) (Auto) % (20.0-45.0) Monocytes (%) (Auto) % (1.0-10.0) Eosinophils (%) (Auto) % (0.0-3.0) Basophils (%) (Auto) % (0.0-2.0) Differential Total Cells Counted 100 Neutrophils % (Manual) 86 % (45-75) H Lymphocytes % (Manual) 7 % (20-45) L Monocytes % (Manual) 2 % (1-10) Eosinophils % (Manual) 0 % (0-3) Basophils % (Manual) 0 % (0-2) Band Neutrophils 5 % (0-8) Platelet Estimate Decreased L Platelet Morphology Normal Hypochromasia 3+ Sodium Level 147 MMOL/L (136-145) H Potassium Level 4.4 MMOL/L (3.5-5.1) Chloride Level 111 MMOL/L (98-107) H Carbon Dioxide Level 24 MMOL/L (21-32) Anion Gap 12 mmol/L (5-15) Blood Urea Nitrogen 65 mg/dL (7-18) H Creatinine 1.3 MG/DL (0.55-1.30) # Estimat Glomerular Filtration Rate 58.2 mL/min (>60) Glucose Level 260 MG/DL (74-106) H Calcium Level 7.8 MG/DL (8.5-10.1) L Phosphorus Level 5.5 MG/DL (2.5-4.9) H Magnesium Level 1.9 MG/DL (1.8-2.4) Total Bilirubin 0.3 MG/DL (0.2-1.0) Aspartate Amino Transf (AST/SGOT) 24 U/L (15-37) Alanine Aminotransferase (ALT/SGPT) 36 U/L (12-78) Alkaline Phosphatase 110 U/L (46-116) C-Reactive Protein, Quantitative < 0.4 mg/dL (0.00-0.90) Pro-B-Type Natriuretic Peptide 3425 pg/mL (0-125) H Total Protein 4.3 G/DL (6.4-8.2) L Albumin 1.5 G/DL (3.4-5.0) L Globulin 2.8 g/dL Albumin/Globulin Ratio 0.5 (1.0-2.7) L Triglycerides Level 137 MG/DL (30-150) Cholesterol Level 97 MG/DL (< 200) LDL Cholesterol 39 mg/dL (<100) HDL Cholesterol 17 MG/DL (40-60) L Cholesterol/HDL Ratio 5.7 (3.3-4.4) H Arterial Blood pH 7.294 (7.350-7.450) Arterial Blood Partial Pressure CO2 53.5 mmHg (35.0-45.0) H Arterial Blood Partial Pressure O2 79.1 mmHg (75.0-100.0) Arterial Blood HCO3 25.4 mmol/L (22.0-26.0) Arterial Blood Oxygen Saturation 94.0 % (95-100) L Arterial Blood Base Excess -1.6 (-2-2) Roshan Test Positive Current Medications Medications (Trade) Dose Ordered Sig/Yoselin Route PRN Reason Start Time Stop Time Status Last Admin Dose Admin Acetaminophen (Tylenol) 650 mg Q6H PRN ORAL For Pain 07/17/20 15:24 08/16/20 15:23 Acetaminophen (Tylenol) 650 mg Q6H PRN ORAL Temp >100.5 07/03/20 16:30 08/02/20 16:29 Acetaminophen (Tylenol) 650 mg Q6H PRN RECTAL Temp >100.5 07/04/20 20:45 08/03/20 20:44 07/19/20 20:24 Acetylcysteine (Mucomyst) 200 mg Q6HRT HHN 07/20/20 13:00 10/18/20 12:59 Argatroban Protocol(Pha) (Argatroban pharmacy to dose) 1 ea DAILY PRN MISC Per rx protocol 07/20/20 11:45 08/19/20 11:44 UNV Chlorhexidine Gluconate (Kalie-Hex 2%) 1 applic DAILY@2000 TOPIC 07/13/20 20:00 10/11/20 19:59 07/19/20 20:24 Dextrose 1,000 ml @ 0 mls/hr Q24H PRN IV PN interrupted or unavailable 07/11/20 12:15 08/10/20 12:14 Dextrose (Dextrose 50%) 25 ml Q30M PRN IV Hypoglycemia 07/11/20 12:15 10/09/20 12:14 Dextrose (Dextrose 50%) 50 ml Q30M PRN IV Hypoglycemia 07/11/20 12:15 10/09/20 12:14 Famotidine (Pepcid I.v.) 40 mg DAILY IVP 07/08/20 09:00 08/01/20 20:59 07/20/20 08:27 Fat Emulsion Intravenous 192 ml/Amino Acids/ Electrolytes/ Dextrose 1,920 ml @ 80 mls/hr Q24H IV 07/13/20 20:00 07/20/20 19:59 07/19/20 20:28 Fat Emulsion Intravenous 192 ml/Amino Acids/ Electrolytes/ Dextrose 1,920 ml @ 80 mls/hr Q24H IV 07/20/20 20:00 08/19/20 19:59 Gentamicin Sulfate (Garamycin 0.3% Opt Soln) 2 drop EVERY 6 HOURS BOTH EYES 07/18/20 11:00 07/25/20 10:59 07/20/20 06:16 Insulin Aspart (NovoLOG) BEFORE MEALS AND HS SUBQ 07/08/20 16:30 10/06/20 16:29 07/20/20 06:17 Insulin Detemir (Levemir) 20 units Q12HR SUBQ 07/20/20 09:00 10/13/20 20:59 07/20/20 08:53 Methylprednisolone Sodium Succinate (Solu-MEDROL) 40 mg DAILY IVP 07/16/20 09:00 10/14/20 08:59 07/20/20 08:27 Ondansetron HCl (Zofran) 4 mg Q6H PRN IVP Nausea & Vomiting 07/17/20 16:00 08/16/20 15:59 Propofol 100 ml @ 0 mls/hr Q12H IV 07/20/20 11:30 07/22/20 11:29 Swapna Falk MD Jul 20, 2020 11:51
[2020-07-20] MEDS: Acetylcysteine 20% Soln 4ml HHN SCH ×2 (13:00→19:00)
[2020-07-20 13:12] LABS: HEMATOCRIT 30.3 % (42.0-52.0); HEMOGLOBIN 9.9 G/DL (14.2-18.0); MEAN CORPUSCULAR VOLUME 93 FL (80-99); PLATELET COUNT 51 K/UL (150-450); RED BLOOD COUNT 3.24 M/UL (4.70-6.10); RED CELL DISTRIBUTION WIDTH 13.4 % (11.6-14.8); WHITE BLOOD COUNT 12.1 K/UL (4.8-10.8)
--- NOTE | 2020-07-20 13:36 | NUR ---
NURSE NOTES:WOUND CARE NOTES:Pt presented with MDR Pressure Injury. DTPI Bridge of nose(L)1.5cm x (W)2.4cm. Base of Pressure Injury is Purpuric with maroon borders. Non-Blanchable erythema with shearing noted to buttocks. Skin changes of L 1st,2nd,3rd and 4th and 5th metatarsals noted. 1st,2nd and 3rd and 5th metatarsals are cyanotic;4th metatarsal is necrotic. Plantar aspects of 2nd and 3rd metatarsals are also necrotic. DTPI L heel (L)2cm x (W)2cm. Base of Pressure Injury is maroon and indurated.No evidence of further skin breakdown to surrounding heel. R Heel is blanchable . Tx.Plan:Apply Cavilon Skin Barrier to Bridge of nose. Cover with Optifoam Thin. Change every 7 days and prn. Apply Moisture Barrier Paste to Sacrum. Cover with Optifoam drsg. Change every 3 days and prn. Apply Cavilon Skin Barrier to both heels. Cover each Heel with Optifoam drsg. Change every 7 days and prn. Reposition at least every 2hours or as tolerated. Off-load heels with pillow. APM/ANTONIO Mattress overlay.
--- NOTE | 2020-07-20 14:04 | Diagnostic Imaging Report ---
EXAM: XR Abdomen, 2 Views CLINICAL HISTORY: F/U TECHNIQUE: Frontal view of the abdomen/pelvis with upright view of the abdomen. COMPARISON: None FINDINGS: Hardware: Enteric tube terminates in the region of the gastric antrum or proximal duodenum. Abdomen: Nonspecific bowel gas pattern with scattered gas-filled bowel loops. No free air. Bones: Degenerative changes of the spine. Soft tissues: Normal. Lower chest: Patchy opacities in the lower lungs. Mild elevation of the right hemidiaphragm. IMPRESSION: 1. Enteric tube terminates in the region of the gastric antrum or proximal duodenum. 2. Nonspecific bowel gas pattern with scattered gas-filled bowel loops.
--- NOTE | 2020-07-20 14:52 | Diagnostic Imaging Report ---
Indication: Cough Technique: One view of the chest Comparison: 07/19/2020 Findings: There is improved aeration of the right upper lobe, but still considerable consolidation within it. Dense consolidation in the left upper lobe is unchanged. Interim placement of orogastric tube, apparently well-positioned. Stomach is decompressed. Stable satisfactory endotracheal tube, PICC positions. Pleural spaces remain clear. The heart size is normal. Impression: Improved but persistent and still extensive right lung infiltrate. Dense consolidation of the left upper lung persists
--- NOTE | 2020-07-20 15:28 | NUR ---
CASE MANAGEMENT:REVIEW 07/20/20 SI: COVID PNA. RESPIRATORY FAILURE ~ INTUBATED PULMONARY EMBOLI. S/P ARREST 07/19/20 98.0 121 25 130/68 94% ON VENT SUPPORT W/100% FIO2 WBC+12.1 PLT-51 BUN+65 IS: TPN/IL @80/HR IV SOLUMEDROL 40MG Q12 IV LASIX QD LEVEMIR SQ Q12 IV PEPCID QD LOVENOX SQ Q12 : NOW IN ICU DCP: FROM HOME PLAN:
[2020-07-20 16:16] LABS: HEMATOCRIT 32.3 % (42.0-52.0); HEMOGLOBIN 10.2 G/DL (14.2-18.0); MEAN CORPUSCULAR VOLUME 95 FL (80-99); PLATELET COUNT 52 K/UL (150-450); RED CELL DISTRIBUTION WIDTH 13.6 % (11.6-14.8); WHITE BLOOD COUNT 13.7 K/UL (4.8-10.8)
--- NOTE | 2020-07-20 17:44 | NUR ---
INSURANCE CLINCALS AND REVIEW FAXED TO [facility] T: [phone] F: [phone]
--- NOTE | 2020-07-20 19:10 | NUR ---
NURSE HAND-OFF REPORT: Latest Vital Signs: Temperature 98.9 , Pulse 126 , B/P 129 /70 , Respiratory Rate 30 , O2 SAT 94 , Mechanical Ventilator, O2 Flow Rate . Vital Sign Comment: ST, stable/guarded EKG Rhythm: Sinus Tachycardia Rhythm change?: N MD Notified?: Teetee -Dr Leung covering for Dr. Kailee MAY Response: Latest Mcdowell Fall Score: 60 Fall Risk: High Risk Safety Measures: Call light Within Reach, Bed Alarm Zone 1, Side Rails Side Rails x3, Bed position Low and Locked. Fall Precautions: Door Sign Report given to TIMOTHY Castro.
--- NOTE | 2020-07-20 19:30 | NUR ---
NURSE NOTES: Received pt with left foot cold and bluish toes,DP and PT pulses faint but palpable. Dr Mejias was aware. Will continue to monitor.
--- NOTE | 2020-07-20 19:30 | NUR ---
NURSE NOTES: Report received from TIMOTHY Solano. Patient is slightly sedated RASS -2 achieved. groundwater monitoring technician is in place, shows sinus tachycardia with HR of 120's. With OGT draining greenish output. Patient is intubated, ET size 7.5, 24 cm lip line, AC mode 16, Pressure control 24, PEEP 14, Fi02 100%, saturating 97%. On NPO, with OGT to gravity, draining greenish output. With davis catheter in place, draining dark logan output with sediments. With bilateral soft wrist restraints, pulses are present and no edema present. With PICC line on left upper arm, running TPN @ 80cc/hour, propofol 35mcg/kg/min(13.44cc/hour). With P200 mattress. Patient is covid positive, isolation maintained and observed. Safety measures are in place, bed in lowest and locked position, side rails up x 2, will continue plan of care.
[2020-07-20] MEDS: Dyna-Hex 2% Top Sol 2oz TOPIC SCH (20:17)
[2020-07-20] MEDS: FAT EMULSION 20% IV SCH (20:19)
[2020-07-20] MEDS: TPN IV SCH (20:19)
--- NOTE | 2020-07-20 22:00 | NUR ---
NURSE NOTES: Patient is still running sinus tachycardia with HR of 120's, no fever noted, vitals were stable. Oral care provided.
[2020-07-21] VITALS (24 sets, daily range): BP systolic 77–154; BP diastolic 40–92
--- NOTE | 2020-07-21 00:20 | NUR ---
NURSE NOTES: Patient is asleep, mildly sedated on RAAS -2, place on low fowlers position, saturating 98%. Vitals were stable. Will closely monitor.
[2020-07-21] MEDS: Acetylcysteine 20% Soln 4ml HHN SCH ×4 (01:00→19:59)
--- NOTE | 2020-07-21 01:15 | Cardiology Progress Note ---
Subjective DATE OF SERVICE: Jul 20, 2020 Now in ICU on full vent support; s/p code blue due to hypoxia and seizure on 07/19. Left foot cold and bluish toe #3 - arterial duplex 07/17 without proximal obstruction. Monitor: sinus rhythm with tachycardia and rare ectopics 2D Echo - normal LVEF, no signs RV strain, normal PA pressure of 30mm Hg CXR (07/20) persisting ALMA infiltrate and improved right basilar infiltrate. Objective Last 24 Hour Vital Signs Date Time Temp Pulse Resp B/P (MAP) Pulse Ox O2 Delivery O2 Flow Rate FiO2 07/21/20 00:00 125 07/21/20 00:00 Mechanical Ventilator 07/21/20 00:00 100 07/21/20 00:00 100 07/20/20 23:28 29 136/70 Mechanical Ventilator 100 07/20/20 22:59 125 30 100 07/20/20 22:00 125 30 140/77 (98) 95 07/20/20 21:00 129 30 137/67 (90) 97 07/20/20 20:00 100 07/20/20 20:00 Mechanical Ventilator 07/20/20 20:00 122 07/20/20 20:00 97.6 129 30 139/67 (91) 97 07/20/20 19:04 126 30 100 07/20/20 19:00 124 29 129/70 (89) 94 07/20/20 19:00 29 129/70 Mechanical Ventilator 100 07/20/20 18:00 26 139/69 Mechanical Ventilator 100 07/20/20 18:00 126 31 139/69 (92) 94 07/20/20 17:39 34 137/66 Mechanical Ventilator 100 07/20/20 17:00 125 31 140/68 (92) 95 07/20/20 17:00 31 140/68 Mechanical Ventilator 100 07/20/20 16:00 122 07/20/20 16:00 Mechanical Ventilator 07/20/20 16:00 27 141/65 Mechanical Ventilator 100 07/20/20 16:00 98.9 123 29 141/65 (90) 94 07/20/20 16:00 100 07/20/20 15:05 127 32 100 07/20/20 15:00 27 134/71 Mechanical Ventilator 100 07/20/20 15:00 121 26 134/71 (92) 93 1/25/21 14:00 118 27 124/68 (86) 94 07/20/20 14:00 26 124/68 Mechanical Ventilator 100 07/20/20 13:00 121 26 130/68 (88) 94 07/20/20 13:00 25 149/77 Mechanical Ventilator 100 07/20/20 12:00 98.0 106 25 149/77 (101) 96 07/20/20 12:00 104 07/20/20 12:00 Mechanical Ventilator 07/20/20 12:00 25 149/77 Mechanical Ventilator 100 07/20/20 12:00 100 07/20/20 11:05 97 30 100 07/20/20 11:00 97 29 138/70 (92) 95 07/20/20 11:00 29 138/70 Mechanical Ventilator 100 07/20/20 10:40 30 119/60 Mechanical Ventilator 100 07/20/20 10:39 28 127/68 Mechanical Ventilator 100 07/20/20 10:00 32 111/54 Mechanical Ventilator 100 07/20/20 10:00 96 32 111/60 (77) 92 07/20/20 09:00 28 118/60 Mechanical Ventilator 100 07/20/20 09:00 98 28 118/60 (79) 93 07/20/20 08:00 26 105/54 Mechanical Ventilator 100 07/20/20 08:00 99 07/20/20 08:00 Mechanical Ventilator 07/20/20 08:00 97.8 101 26 105/54 (71) 99 07/20/20 08:00 100 07/20/20 07:05 100 25 100 07/20/20 07:00 25 106/49 Mechanical Ventilator 100 07/20/20 07:00 104 25 106/49 (68) 100 07/20/20 06:00 24 107/52 Mechanical Ventilator 100 07/20/20 06:00 99 24 107/52 (70) 100 07/20/20 05:00 93 30 101/63 (76) 100 07/20/20 05:00 27 100/54 Mechanical Ventilator 100 07/20/20 04:00 97 07/20/20 04:00 100 07/20/20 04:00 97.9 92 27 100/54 (69) 100 07/20/20 04:00 27 93/50 Mechanical Ventilator 100 07/20/20 04:00 Mechanical Ventilator 07/20/20 03:47 95 25 100 07/20/20 03:15 93 26 93/50 (64) 100 07/20/20 03:15 26 93/50 Mechanical Ventilator 100 07/20/20 03:00 99 27 80/43 (55) 99 07/20/20 03:00 27 80/43 Mechanical Ventilator 100 07/20/20 02:19 34 137/77 Mechanical Ventilator 100 07/20/20 02:00 103 30 137/77 (97) 96 07/20/20 02:00 30 137/77 Mechanical Ventilator 100 ROS: unchanged from 06/19/20 HEENT: Mechanically Ventilated, Thin secretions ET Tube, other - bipap RHYTHM: ST LUNGS: bilat. rhonchi and rales CARDIAC: normal rate, regular rhythm, normal S1 and S2 ABDOMEN: normal bowel sounds, soft, distended EXTREMITIES: normal range of motion, non-tender, trace edema, other - left toes 1,2,3 with gangrenous changes - especially evident in 3rd toe. Laboratory Tests Test 07/20/20 05:27 07/20/20 08:19 07/20/20 11:25 07/20/20 15:15 White Blood Count 15.1 K/UL (4.8-10.8) H 12.1 K/UL (4.8-10.8) H 13.7 K/UL (4.8-10.8) H Red Blood Count 2.80 M/UL (4.70-6.10) L 3.24 M/UL (4.70-6.10) L 3.40 M/UL (4.70-6.10) L Hemoglobin 8.6 G/DL (14.2-18.0) L 9.9 G/DL (14.2-18.0) L 10.2 G/DL (14.2-18.0) L Hematocrit 26.6 % (42.0-52.0) L 30.3 % (42.0-52.0) L 32.3 % (42.0-52.0) L Mean Corpuscular Volume 95 FL (80-99) 93 FL (80-99) 95 FL (80-99) Mean Corpuscular Hemoglobin 30.8 PG (27.0-31.0) 30.6 PG (27.0-31.0) 30.0 PG (27.0-31.0) Mean Corpuscular Hemoglobin Concent 32.4 G/DL (32.0-36.0) 32.8 G/DL (32.0-36.0) 31.6 G/DL (32.0-36.0) L Red Cell Distribution Width 13.4 % (11.6-14.8) 13.4 % (11.6-14.8) 13.6 % (11.6-14.8) Platelet Count 59 K/UL (150-450) L 51 K/UL (150-450) L 52 K/UL (150-450) L Mean Platelet Volume 9.1 FL (6.5-10.1) 13.8 FL (6.5-10.1) H 11.8 FL (6.5-10.1) H Neutrophils (%) (Auto) % (45.0-75.0) % (45.0-75.0) % (45.0-75.0) Lymphocytes (%) (Auto) % (20.0-45.0) % (20.0-45.0) % (20.0-45.0) Monocytes (%) (Auto) % (1.0-10.0) % (1.0-10.0) % (1.0-10.0) Eosinophils (%) (Auto) % (0.0-3.0) % (0.0-3.0) % (0.0-3.0) Basophils (%) (Auto) % (0.0-2.0) % (0.0-2.0) % (0.0-2.0) Differential Total Cells Counted 100 100 100 Neutrophils % (Manual) 86 % (45-75) H 65 % (45-75) 55 % (45-75) Lymphocytes % (Manual) 7 % (20-45) L 6 % (20-45) L 1 % (20-45) L Monocytes % (Manual) 2 % (1-10) 3 % (1-10) 1 % (1-10) Eosinophils % (Manual) 0 % (0-3) 0 % (0-3) 0 % (0-3) Basophils % (Manual) 0 % (0-2) 0 % (0-2) 0 % (0-2) Band Neutrophils 5 % (0-8) 26 % (0-8) H 43 % (0-8) H Platelet Estimate Decreased L Decreased L Decreased L Platelet Morphology Normal Normal Normal Hypochromasia 3+ 1+ 1+ Sodium Level 147 MMOL/L (136-145) H Potassium Level 4.4 MMOL/L (3.5-5.1) Chloride Level 111 MMOL/L (98-107) H Carbon Dioxide Level 24 MMOL/L (21-32) Anion Gap 12 mmol/L (5-15) Blood Urea Nitrogen 65 mg/dL (7-18) H Creatinine 1.3 MG/DL (0.55-1.30) # Estimat Glomerular Filtration Rate 58.2 mL/min (>60) Glucose Level 260 MG/DL (74-106) H Calcium Level 7.8 MG/DL (8.5-10.1) L Phosphorus Level 5.5 MG/DL (2.5-4.9) H Magnesium Level 1.9 MG/DL (1.8-2.4) Total Bilirubin 0.3 MG/DL (0.2-1.0) Aspartate Amino Transf (AST/SGOT) 24 U/L (15-37) Alanine Aminotransferase (ALT/SGPT) 36 U/L (12-78) Alkaline Phosphatase 110 U/L (46-116) C-Reactive Protein, Quantitative < 0.4 mg/dL (0.00-0.90) Pro-B-Type Natriuretic Peptide 3425 pg/mL (0-125) H Total Protein 4.3 G/DL (6.4-8.2) L Albumin 1.5 G/DL (3.4-5.0) L Globulin 2.8 g/dL Albumin/Globulin Ratio 0.5 (1.0-2.7) L Triglycerides Level 137 MG/DL (30-150) Cholesterol Level 97 MG/DL (< 200) LDL Cholesterol 39 mg/dL (<100) HDL Cholesterol 17 MG/DL (40-60) L Cholesterol/HDL Ratio 5.7 (3.3-4.4) H Arterial Blood pH 7.294 (7.350-7.450) Arterial Blood Partial Pressure CO2 53.5 mmHg (35.0-45.0) H Arterial Blood Partial Pressure O2 79.1 mmHg (75.0-100.0) Arterial Blood HCO3 25.4 mmol/L (22.0-26.0) Arterial Blood Oxygen Saturation 94.0 % (95-100) L Arterial Blood Base Excess -1.6 (-2-2) Roshan Test Positive Test 07/20/20 16:52 07/20/20 18:00 POC Whole Blood Glucose Pending Activated Partial Thromboplast Time 42 SEC (23-33) H Heparin-PF4 Antibody Screen Pending Assessment/Plan Assessment/Plan Acute respiratory failure HC associated PNA COVID 19 PNA Hypoxia Ac pulmonary embolism Acute coronary syndrome/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 Sinus tachycardia Left LE ischemia Dehydration/hypernatremia Remains Critical and Guarded Vent support Hold diuresis for now; trend BNP Free water replacement Full anticoagulation Antimicrobials Monitor for sustained atrial arrhythmias Replace lytes as needed Insulin cov'g by Aden Meléndez MD Jul 21, 2020 01:15
--- NOTE | 2020-07-21 02:01 | NUR ---
NURSE NOTES: Bilateral soft wrist restraints are still on, peripheral pulses present no edema nor bruises noted. Repositioned on his left side.
--- NOTE | 2020-07-21 04:40 | NUR ---
NURSE NOTES: Sponge bath done, changed all linens and positioned on low fowlers. Cardiac garcia still on sinus tachycardia with HR of 130's. Will closely monitor.
[2020-07-21 04:41] LABS: HEMATOCRIT 33.1 % (42.0-52.0); HEMOGLOBIN 10.4 G/DL (14.2-18.0); MEAN CORPUSCULAR VOLUME 97 FL (80-99); PLATELET COUNT 59 K/UL (150-450); RED BLOOD COUNT 3.43 M/UL (4.70-6.10); RED CELL DISTRIBUTION WIDTH 13.9 % (11.6-14.8); WHITE BLOOD COUNT 9.6 K/UL (4.8-10.8)
[2020-07-21 04:57] LABS: ALANINE AMINOTRANSFERASE 35 U/L (12-78); ALBUMIN 1.1 G/DL (3.4-5.0); ALBUMIN/GLOBULIN RATIO 0.2 (1.0-2.7); ALKALINE PHOSPHATASE 133 U/L (46-116); ANION GAP 0 mmol/L (5-15); ASPARTATE AMINO TRANSFERASE 16 U/L (15-37); BILIRUBIN,TOTAL 0.3 MG/DL (0.2-1.0); BLOOD UREA NITROGEN 47 mg/dL (7-18); CALCIUM 8.9 MG/DL (8.5-10.1); CARBON DIOXIDE 32 MMOL/L (21-32); CHLORIDE 110 MMOL/L (98-107); POTASSIUM 4.6 MMOL/L (3.5-5.1); SODIUM 142 MMOL/L (136-145); TRIGLYCERIDES 213 MG/DL (30-150)
[2020-07-21 05:23] LABS: PHOSPHORUS 2.9 MG/DL (2.5-4.9)
--- NOTE | 2020-07-21 05:30 | NUR ---
NURSE NOTES: Noted that patient's HR has been sustained on 130, checked the temperature and it was 101. Cooling measures provided, tylenol 650 mg given thru OGT. Will re-assess patient's temperature.
[2020-07-21] MEDS: Gentamicin 0.3% Opth Soln 5ml BOTH EYES SCH ×4 (05:34→23:54)
[2020-07-21] MEDS: propofoL 1,000mg/100ml 100 ML IV SCH ×2 (06:27→13:46)
[2020-07-21] MEDS: NovoLOG Insulin Flexpen SUBQ SCH ×4 (06:33→21:28)
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
--- NOTE | 2020-07-21 07:17 | NUR ---
RESPIRATORY NOTE: PT received on ACPC 16, P 24, 100%, +14. Alarms are on and audible. Vent circuit is secure and out of the way. Airway is secure but loud audible leak is heard from possible torn cuff. Pt Vt is in the mid 300. RN informed and made aware. Will wait for new orders regarding ETT. Will continue to monitor.
--- NOTE | 2020-07-21 07:29 | NUR ---
NURSE HAND-OFF REPORT: Latest Vital Signs: Temperature 99.9 , Pulse 115 , B/P 109 /67 , Respiratory Rate 34 , O2 SAT 95 , Mechanical Ventilator, O2 Flow Rate . Vital Sign Comment: Stable EKG Rhythm: Sinus Tachycardia Rhythm change?: N Notified?: Y -Dr Leung covering for Dr. Kailee MAY Response: Latest Mcdowell Fall Score: 60 Fall Risk: High Risk Safety Measures: Call light Within Reach, Bed Alarm Zone 1, Side Rails Side Rails x3, Bed position Low and Locked. Fall Precautions: Door Sign Report given to TIMOTHY Cordero.
[2020-07-21] MEDS: Enoxaparin 60mg Inj SUBQ SCH ×2 (09:00→21:00)
--- NOTE | 2020-07-21 09:01 | NUR ---
CASE MANAGEMENT:REVIEW 07/21/20 SI: COVID PNA. RESPIRATORY FAILURE ~ INTUBATED PULMONARY EMBOLI. S/P ARREST 07/19/20 101.0 139 34 110/68 SATS~ 95% ON VENT SUPPORT W/100% FIO2 PLT-59 GLUCOSE+259 CRP+58.1 IS: TPN/IL @80/HR IV SOLUMEDROL 40MG Q12 MUCOMYST INH Q6HRS PROPOFOL GTT IV LASIX QD LEVEMIR SQ Q12 IV PEPCID QD LOVENOX SQ Q12 : ICU STATUS DCP: FROM HOME PLAN: VENOUS DUPLEX WEAN OXYGEN TOLERATED
[2020-07-21] MEDS: Solu-MEDROL 40mg Inj IVP SCH ×2 (09:32→21:04)
[2020-07-21] MEDS: Levemir Flexpen SUBQ SCH ×2 (09:33→21:28)
--- NOTE | 2020-07-21 09:36 | Nephrology Progress Note ---
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 Full code. On TPN. Labs reviewed. Electrolytes and renal parameters stable. Continue TPN as is. Discussed with pharmacy. July 20: Remains in ICU, full code, intubated, on ventilator. On TPN. Labs reviewed. Serum creatinine and serum phosphorus rising. Adjustment done with pharmacy regarding TPN. Continue to monitor renal parameters. July 19: Now in ICU and intubated. Labs reviewed. Able from renal standpoint of view and on TPN. Continue per pulmonary and ID. July 18: Remains on TPN. Full code. Labs reviewed. Discussed with pharmacy. Continue as is. July 17: Remains on TPN. Labs reviewed. Discussed with pharmacy. Continue as is. July 16: Remains on TPN. Labs reviewed. Sodium slightly elevated. Levemir dose increased for better blood sugar control. Discussed with pharmacy. Continue to monitor electrolytes. July 15: On TPN. Labs reviewed. Continue TPN as is. Adjust insulin for blood sugar control. Per orders. July 14: Patient started on TPN since last night. We will continue to monitor electrolytes and renal parameters and adjust TPN composition as needed. Discussed with pharmacy. July 13: Due for PICC line today and initiation of TPN. Low magnesium addressed. Continue per current management. July 12: Remains full code. Remains on BiPAP. Labs reviewed. Low potassium and phosphorus addressed. Awaiting initiation of TPN. Subjective ROS Limited/Unobtainable: Yes Objective Objective Last 24 Hour Vital Signs Date Time Temp Pulse Resp B/P (MAP) Pulse Ox O2 Delivery O2 Flow Rate FiO2 07/21/20 07:00 34 109/67 Mechanical Ventilator 07/21/20 07:00 115 109/67 (81) 07/21/20 06:27 36 110/68 Mechanical Ventilator 100 07/21/20 06:26 34 110/68 07/21/20 06:00 34 110/68 Mechanical Ventilator 07/21/20 06:00 99.9 07/21/20 06:00 99.9 125 110/68 (82) 07/21/20 05:30 101.0 139 07/21/20 05:00 136 124/61 (82) 07/21/20 05:00 34 124/61 Mechanical Ventilator 07/21/20 04:00 33 128/54 Mechanical Ventilator 07/21/20 04:00 Mechanical Ventilator 07/21/20 04:00 98.8 137 137/67 (90) 07/21/20 04:00 139 07/21/20 04:00 100 07/21/20 03:00 132 35 100 07/21/20 03:00 136 153/77 (102) 07/21/20 03:00 33 153/77 Mechanical Ventilator 07/21/20 02:00 32 137/69 Mechanical Ventilator 07/21/20 02:00 131 31 146/70 (95) 95 07/21/20 01:00 126 30 154/84 (107) 100 07/21/20 01:00 30 154/84 Mechanical Ventilator 07/21/20 00:00 125 07/21/20 00:00 Mechanical Ventilator 07/21/20 00:00 31 143/73 Mechanical Ventilator 07/21/20 00:00 100 07/21/20 00:00 100 07/21/20 00:00 99.6 124 31 143/73 (96) 99 07/20/20 23:28 29 136/70 Mechanical Ventilator 100 07/20/20 23:00 31 136/70 Mechanical Ventilator 07/20/20 23:00 127 31 136/70 (92) 96 07/20/20 22:59 125 30 100 07/20/20 22:00 30 140/77 Mechanical Ventilator 07/20/20 22:00 125 30 140/77 (98) 95 07/20/20 21:00 129 30 137/67 (90) 97 07/20/20 21:00 30 137/67 Mechanical Ventilator 07/20/20 20:00 100 07/20/20 20:00 Mechanical Ventilator 07/20/20 20:00 122 07/20/20 20:00 30 139/67 Mechanical Ventilator 07/20/20 20:00 97.6 129 30 139/67 (91) 97 07/20/20 19:04 126 30 100 07/20/20 19:00 124 29 129/70 (89) 94 07/20/20 19:00 29 129/70 Mechanical Ventilator 100 07/20/20 18:00 26 139/69 Mechanical Ventilator 100 07/20/20 18:00 126 31 139/69 (92) 94 07/20/20 17:39 34 137/66 Mechanical Ventilator 100 07/20/20 17:00 125 31 140/68 (92) 95 07/20/20 17:00 31 140/68 Mechanical Ventilator 100 07/20/20 16:00 122 07/20/20 16:00 Mechanical Ventilator 07/20/20 16:00 27 141/65 Mechanical Ventilator 100 07/20/20 16:00 98.9 123 29 141/65 (90) 94 07/20/20 16:00 100 07/20/20 15:05 127 32 100 07/20/20 15:00 27 134/71 Mechanical Ventilator 100 07/20/20 15:00 121 26 134/71 (92) 93 07/20/20 14:00 118 27 124/68 (86) 94 07/20/20 14:00 26 124/68 Mechanical Ventilator 100 07/20/20 13:00 121 26 130/68 (88) 94 07/20/20 13:00 25 149/77 Mechanical Ventilator 100 07/20/20 12:00 98.0 106 25 149/77 (101) 96 07/20/20 12:00 104 07/20/20 12:00 Mechanical Ventilator 07/20/20 12:00 25 149/77 Mechanical Ventilator 100 07/20/20 12:00 100 07/20/20 11:05 97 30 100 07/20/20 11:00 97 29 138/70 (92) 95 07/20/20 11:00 29 138/70 Mechanical Ventilator 100 07/20/20 10:40 30 119/60 Mechanical Ventilator 100 07/20/20 10:39 28 127/68 Mechanical Ventilator 100 07/20/20 10:00 32 111/54 Mechanical Ventilator 100 07/20/20 10:00 96 32 111/60 (77) 92 Intake and Output 07/20/20 07/21/20 19:00 07:00 Intake Total 1113.696 ml 1783.152 ml Output Total 1090 ml 570 ml Balance 23.696 ml 1213.152 ml IV Total 1113.696 ml 1783.152 ml Output Urine Total 1090 ml 570 ml Current Medications Medications (Trade) Dose Ordered Sig/Yoselin Route PRN Reason Start Time Stop Time Status Last Admin Dose Admin Acetaminophen (Tylenol) 650 mg Q6H PRN ORAL For Pain 07/17/20 15:24 08/16/20 15:23 Acetaminophen (Tylenol) 650 mg Q6H PRN ORAL Temp >100.5 07/03/20 16:30 08/02/20 16:29 07/21/20 05:30 Acetaminophen (Tylenol) 650 mg Q6H PRN RECTAL Temp >100.5 07/04/20 20:45 08/03/20 20:44 07/19/20 20:24 Acetylcysteine (Mucomyst) 200 mg Q6HRT HHN 07/20/20 13:00 10/18/20 12:59 Chlorhexidine Gluconate (Kalie-Hex 2%) 1 applic DAILY@2000 TOPIC 07/13/20 20:00 10/11/20 19:59 07/20/20 20:17 Dextrose 1,000 ml @ 0 mls/hr Q24H PRN IV PN interrupted or unavailable 07/11/20 12:15 08/10/20 12:14 Dextrose (Dextrose 50%) 25 ml Q30M PRN IV Hypoglycemia 07/11/20 12:15 10/09/20 12:14 Dextrose (Dextrose 50%) 50 ml Q30M PRN IV Hypoglycemia 07/11/20 12:15 10/09/20 12:14 Enoxaparin Sodium (Lovenox) 60 mg EVERY 12 HOURS SUBQ 07/20/20 21:00 10/18/20 20:59 Famotidine (Pepcid I.v.) 40 mg DAILY IVP 07/08/20 09:00 08/01/20 20:59 07/21/20 09:31 Fat Emulsion Intravenous 192 ml/Amino Acids/ Electrolytes/ Dextrose 1,920 ml @ 80 mls/hr Q24H IV 07/20/20 20:00 08/19/20 19:59 07/20/20 20:19 Gentamicin Sulfate (Garamycin 0.3% Opth Soln) 2 drop EVERY 6 HOURS BOTH EYES 07/18/20 11:00 07/25/20 10:59 07/21/20 05:34 Insulin Aspart (NovoLOG) BEFORE MEALS AND HS SUBQ 07/08/20 16:30 10/06/20 16:29 07/21/20 06:33 Insulin Detemir (Levemir) 20 units Q12HR SUBQ 07/20/20 09:00 10/13/20 20:59 07/21/20 09:33 Methylprednisolone Sodium Succinate (Solu-MEDROL) 40 mg EVERY 12 HOURS IVP 07/20/20 21:00 10/18/20 20:59 07/21/20 09:32 Ondansetron HCl (Zofran) 4 mg Q6H PRN IVP Nausea & Vomiting 07/17/20 16:00 08/16/20 15:59 Propofol 100 ml @ 0 mls/hr Q12H IV 07/20/20 11:30 07/22/20 11:29 07/21/20 06:27 Laboratory Tests 07/20/20 11:25: White Blood Count 12.1H, Red Blood Count 3.24L, Hemoglobin 9.9L, Hematocrit 30.3L, Mean Corpuscular Volume 93, Mean Corpuscular Hemoglobin 30.6, Mean Corpuscular Hemoglobin Concent 32.8, Red Cell Distribution Width 13.4, Platelet Count 51L, Mean Platelet Volume 13.8H, Neutrophils (%) (Auto) , Lymphocytes (%) (Auto) , Monocytes (%) (Auto) , Eosinophils (%) (Auto) , Basophils (%) (Auto) , Differential Total Cells Counted 100, Neutrophils % (Manual) 65, Lymphocytes % (Manual) 6L, Monocytes % (Manual) 3, Eosinophils % (Manual) 0, Basophils % (Manual) 0, Band Neutrophils 26H, Platelet Estimate DecreasedL, Platelet Morphology Normal, Hypochromasia 1+ 07/20/20 15:15: White Blood Count 13.7H, Red Blood Count 3.40L, Hemoglobin 10.2L, Hematocrit 32.3L, Mean Corpuscular Volume 95, Mean Corpuscular Hemoglobin 30.0, Mean Corpuscular Hemoglobin Concent 31.6L, Red Cell Distribution Width 13.6, Platelet Count 52L, Mean Platelet Volume 11.8H, Neutrophils (%) (Auto) , Lymphocytes (%) (Auto) , Monocytes (%) (Auto) , Eosinophils (%) (Auto) , Basophils (%) (Auto) , Differential Total Cells Counted 100, Neutrophils % (Manual) 55, Lymphocytes % (Manual) 1L, Monocytes % (Manual) 1, Eosinophils % (Manual) 0, Basophils % (Manual) 0, Band Neutrophils 43H, Platelet Estimate DecreasedL, Platelet Morphology Normal, Hypochromasia 1+ 07/20/20 16:52: POC Whole Blood Glucose [Pending] 07/20/20 18:00: Activated Partial Thromboplast Time 42H, Heparin-PF4 Antibody Screen [Pending] 07/21/20 02:42: POC Whole Blood Glucose 245H 07/21/20 04:00: White Blood Count 9.6, Red Blood Count 3.43L, Hemoglobin 10.4L, Hematocrit 33.1L , Mean Corpuscular Volume 97, Mean Corpuscular Hemoglobin 30.5, Mean Corpuscular Hemoglobin Concent 31.6L, Red Cell Distribution Width 13.9, Platelet Count 59L, Mean Platelet Volume 11.2H, Neutrophils (%) (Auto) , Lymphocytes (%) (Auto) , Monocytes (%) (Auto) , Eosinophils (%) (Auto) , Basophils (%) (Auto) , Differential Total Cells Counted 100, Neutrophils % (Manual) 61, Lymphocytes % (Manual) 2L, Monocytes % (Manual) 1, Eosinophils % (Manual) 0, Basophils % (Manual) 0, Band Neutrophils 36H, Platelet Estimate DecreasedL, Platelet Morphology Normal, Hypochromasia 1+, Haptoglobin [Pending], Sodium Level 142, Potassium Level 4.6, Chloride Level 110H, Carbon Dioxide Level 32, Anion Gap 0L, Blood Urea Nitrogen 47H, Creatinine 1.0, Estimat Glomerular Filtration Rate > 60, Glucose Level 259H, Uric Acid 1.8L, Calcium Level 8.9, Phosphorus Level 2.9, Magnesium Level 2.0, Total Bilirubin 0.3, Aspartate Amino Transf (AST/SGOT) 16, Alanine Aminotransferase (ALT/SGPT) 35, Alkaline Phosphatase 133H, Lactate Dehydrogenase 447H, C-Reactive Protein, Quantitative 58.1H, Pro-B-Type Natriuretic Peptide 946H, Total Protein 5.8#L, Albumin 1.1L, Globulin 4.7, Albumin/Globulin Ratio 0.2L, Triglycerides Level 213H Height (Feet): 5 Height (Inches): 4.00 Weight (Pounds): 146 General Appearance: no apparent distress EENT: other - Intubated on ventilator Cardiovascular: tachycardia Respiratory/Chest: decreased breath sounds Abdomen: distended Jimmy Saul MD Jul 21, 2020 09:36
--- NOTE | 2020-07-21 09:46 | Pulmonology Progress Note ---
Subjective ROS Limited/Unobtainable: Yes Interval Events: Became hypoxic; coded; now intubated as of 07/19/20 Constitutional: Denies: fever HEENT: Repors: no symptoms Respiratory: Reports: no symptoms Cardiovascular: Reports: no symptoms Gastrointestinal/Abdominal: Reports: no symptoms Allergies: Coded Allergies: No Known Allergies (Unverified , 06/18/20) Objective Last 24 Hour Vital Signs Date Time Temp Pulse Resp B/P (MAP) Pulse Ox O2 Delivery O2 Flow Rate FiO2 07/21/20 07:00 34 109/67 Mechanical Ventilator 07/21/20 07:00 115 109/67 (81) 07/21/20 06:27 36 110/68 Mechanical Ventilator 100 07/21/20 06:26 34 110/68 07/21/20 06:00 34 110/68 Mechanical Ventilator 07/21/20 06:00 99.9 07/21/20 06:00 99.9 125 110/68 (82) 07/21/20 05:30 101.0 139 07/21/20 05:00 136 124/61 (82) 07/21/20 05:00 34 124/61 Mechanical Ventilator 07/21/20 04:00 33 128/54 Mechanical Ventilator 07/21/20 04:00 Mechanical Ventilator 07/21/20 04:00 98.8 137 137/67 (90) 07/21/20 04:00 139 07/21/20 04:00 100 07/21/20 03:00 132 35 100 07/21/20 03:00 136 153/77 (102) 07/21/20 03:00 33 153/77 Mechanical Ventilator 07/21/20 02:00 32 137/69 Mechanical Ventilator 07/21/20 02:00 131 31 146/70 (95) 95 07/21/20 01:00 126 30 154/84 (107) 100 07/21/20 01:00 30 154/84 Mechanical Ventilator 07/21/20 00:00 125 07/21/20 00:00 Mechanical Ventilator 07/21/20 00:00 31 143/73 Mechanical Ventilator 07/21/20 00:00 100 07/21/20 00:00 100 07/21/20 00:00 99.6 124 31 143/73 (96) 99 07/20/20 23:28 29 136/70 Mechanical Ventilator 100 07/20/20 23:00 31 136/70 Mechanical Ventilator 07/20/20 23:00 127 31 136/70 (92) 96 07/20/20 22:59 125 30 100 07/20/20 22:00 30 140/77 Mechanical Ventilator 07/20/20 22:00 125 30 140/77 (98) 95 07/20/20 21:00 129 30 137/67 (90) 97 07/20/20 21:00 30 137/67 Mechanical Ventilator 07/20/20 20:00 100 07/20/20 20:00 Mechanical Ventilator 07/20/20 20:00 122 07/20/20 20:00 30 139/67 Mechanical Ventilator 07/20/20 20:00 97.6 129 30 139/67 (91) 97 07/20/20 19:04 126 30 100 07/20/20 19:00 124 29 129/70 (89) 94 07/20/20 19:00 29 129/70 Mechanical Ventilator 100 07/20/20 18:00 26 139/69 Mechanical Ventilator 100 07/20/20 18:00 126 31 139/69 (92) 94 07/20/20 17:39 34 137/66 Mechanical Ventilator 100 07/20/20 17:00 125 31 140/68 (92) 95 07/20/20 17:00 31 140/68 Mechanical Ventilator 100 07/20/20 16:00 122 07/20/20 16:00 Mechanical Ventilator 07/20/20 16:00 27 141/65 Mechanical Ventilator 100 07/20/20 16:00 98.9 123 29 141/65 (90) 94 07/20/20 16:00 100 07/20/20 15:05 127 32 100 07/20/20 15:00 27 134/71 Mechanical Ventilator 100 07/20/20 15:00 121 26 134/71 (92) 93 07/20/20 14:00 118 27 124/68 (86) 94 07/20/20 14:00 26 124/68 Mechanical Ventilator 100 07/20/20 13:00 121 26 130/68 (88) 94 07/20/20 13:00 25 149/77 Mechanical Ventilator 100 07/20/20 12:00 98.0 106 25 149/77 (101) 96 07/20/20 12:00 104 07/20/20 12:00 Mechanical Ventilator 07/20/20 12:00 25 149/77 Mechanical Ventilator 100 07/20/20 12:00 100 07/20/20 11:05 97 30 100 07/20/20 11:00 97 29 138/70 (92) 95 07/20/20 11:00 29 138/70 Mechanical Ventilator 100 07/20/20 10:40 30 119/60 Mechanical Ventilator 100 07/20/20 10:39 28 127/68 Mechanical Ventilator 100 07/20/20 10:00 32 111/54 Mechanical Ventilator 100 07/20/20 10:00 96 32 111/60 (77) 92 Intake and Output 07/20/20 07/21/20 19:00 07:00 Intake Total 1113.696 ml 1783.152 ml Output Total 1090 ml 570 ml Balance 23.696 ml 1213.152 ml IV Total 1113.696 ml 1783.152 ml Output Urine Total 1090 ml 570 ml General Appearance: no acute distress HEENT: normocephalic Respiratory: chest wall non-tender, lungs clear Cardiovascular: normal peripheral pulses Abdomen: normal bowel sounds Extremities: no cyanosis Laboratory Tests 07/20/20 11:25: White Blood Count 12.1H, Red Blood Count 3.24L, Hemoglobin 9.9L, Hematocrit 30.3L, Mean Corpuscular Volume 93, Mean Corpuscular Hemoglobin 30.6, Mean Corpuscular Hemoglobin Concent 32.8, Red Cell Distribution Width 13.4, Platelet Count 51L, Mean Platelet Volume 13.8H, Neutrophils (%) (Auto) , Lymphocytes (%) (Auto) , Monocytes (%) (Auto) , Eosinophils (%) (Auto) , Basophils (%) (Auto) , Differential Total Cells Counted 100, Neutrophils % (Manual) 65, Lymphocytes % (Manual) 6L, Monocytes % (Manual) 3, Eosinophils % (Manual) 0, Basophils % (Manual) 0, Band Neutrophils 26H, Platelet Estimate DecreasedL, Platelet Morphology Normal, Hypochromasia 1+ 07/20/20 15:15: White Blood Count 13.7H, Red Blood Count 3.40L, Hemoglobin 10.2L, Hematocrit 32.3L, Mean Corpuscular Volume 95, Mean Corpuscular Hemoglobin 30.0, Mean Corpu scular Hemoglobin Concent 31.6L, Red Cell Distribution Width 13.6, Platelet Count 52L, Mean Platelet Volume 11.8H, Neutrophils (%) (Auto) , Lymphocytes (%) (Auto) , Monocytes (%) (Auto) , Eosinophils (%) (Auto) , Basophils (%) (Auto) , Differential Total Cells Counted 100, Neutrophils % (Manual) 55, Lymphocytes % (Manual) 1L, Monocytes % (Manual) 1, Eosinophils % (Manual) 0, Basophils % (Manual) 0, Band Neutrophils 43H, Platelet Estimate DecreasedL, Platelet Morphology Normal, Hypochromasia 1+ 07/20/20 16:52: POC Whole Blood Glucose [Pending] 07/20/20 18:00: Activated Partial Thromboplast Time 42H, Heparin-PF4 Antibody Screen [Pending] 07/21/20 02:42: POC Whole Blood Glucose 245H 07/21/20 04:00: White Blood Count 9.6, Red Blood Count 3.43L, Hemoglobin 10.4L, Hematocrit 33.1L , Mean Corpuscular Volume 97, Mean Corpuscular Hemoglobin 30.5, Mean Corpuscular Hemoglobin Concent 31.6L, Red Cell Distribution Width 13.9, Platelet Count 59L, Mean Platelet Volume 11.2H, Neutrophils (%) (Auto) , Lymphocytes (%) (Auto) , Monocytes (%) (Auto) , Eosinophils (%) (Auto) , Basophils (%) (Auto) , Differential Total Cells Counted 100, Neutrophils % (Manual) 61, Lymphocytes % (Manual) 2L, Monocytes % (Manual) 1, Eosinophils % (Manual) 0, Basophils % (Manual) 0, Band Neutrophils 36H, Platelet Estimate DecreasedL, Platelet Morphology Normal, Hypochromasia 1+, Haptoglobin [Pending], Sodium Level 142, Potassium Level 4.6, Chloride Level 110H, Carbon Dioxide Level 32, Anion Gap 0L, Blood Urea Nitrogen 47H, Creatinine 1.0, Estimat Glomerular Filtration Rate > 60, Glucose Level 259H, Uric Acid 1.8L, Calcium Level 8.9, Phosphorus Level 2.9, Magnesium Level 2.0, Total Bilirubin 0.3, Aspartate Amino Transf (AST/SGOT) 16, Alanine Aminotransferase (ALT/SGPT) 35, Alkaline Phosphatase 133H, Lactate Dehydrogenase 447H, C-Reactive Protein, Quantitative 58.1H, Pro-B-Type Natriuretic Peptide 946H, Total Protein 5.8#L, Albumin 1.1L, Globulin 4.7, Albumin/Globulin Ratio 0.2L, Triglycerides Level 213H Current Medications Medications (Trade) Dose Ordered Sig/Yoselin Route PRN Reason Start Time Stop Time Status Last Admin Dose Admin Acetaminophen (Tylenol) 650 mg Q6H PRN ORAL For Pain 07/17/20 15:24 08/16/20 15:23 Acetaminophen (Tylenol) 650 mg Q6H PRN ORAL Temp >100.5 07/03/20 16:30 08/02/20 16:29 07/21/20 05:30 Acetaminophen (Tylenol) 650 mg Q6H PRN RECTAL Temp >100.5 07/04/20 20:45 08/03/20 20:44 07/19/20 20:24 Acetylcysteine (Mucomyst) 200 mg Q6HRT HHN 07/20/20 13:00 10/18/20 12:59 Chlorhexidine Gluconate (Kalie-Hex 2%) 1 applic DAILY@2000 TOPIC 07/13/20 20:00 10/11/20 19:59 07/20/20 20:17 Dextrose 1,000 ml @ 0 mls/hr Q24H PRN IV PN interrupted or unavailable 07/11/20 12:15 08/10/20 12:14 Dextrose (Dextrose 50%) 25 ml Q30M PRN IV Hypoglycemia 07/11/20 12:15 10/09/20 12:14 Dextrose (Dextrose 50%) 50 ml Q30M PRN IV Hypoglycemia 07/11/20 12:15 10/09/20 12:14 Enoxaparin Sodium (Lovenox) 60 mg EVERY 12 HOURS SUBQ 07/20/20 21:00 10/18/20 20:59 Famotidine (Pepcid I.v.) 40 mg DAILY IVP 07/08/20 09:00 08/01/20 20:59 07/21/20 09:31 Fat Emulsion Intravenous 192 ml/Amino Acids/ Electrolytes/ Dextrose 1,920 ml @ 80 mls/hr Q24H IV 07/20/20 20:00 08/19/20 19:59 07/20/20 20:19 Gentamicin Sulfate (Garamycin 0.3% Opth Soln) 2 drop EVERY 6 HOURS BOTH EYES 07/18/20 11:00 07/25/20 10:59 07/21/20 05:34 Insulin Aspart (NovoLOG) BEFORE MEALS AND HS SUBQ 07/08/20 16:30 10/06/20 16:29 07/21/20 06:33 Insulin Detemir (Levemir) 20 units Q12HR SUBQ 07/20/20 09:00 10/13/20 20:59 07/21/20 09:33 Methylprednisolone Sodium Succinate (Solu-MEDROL) 40 mg EVERY 12 HOURS IVP 07/20/20 21:00 10/18/20 20:59 07/21/20 09:32 Ondansetron HCl (Zofran) 4 mg Q6H PRN IVP Nausea & Vomiting 07/17/20 16:00 08/16/20 15:59 Propofol 100 ml @ 0 mls/hr Q12H IV 07/20/20 11:30 07/22/20 11:29 07/21/20 06:27 Assessment/Plan Assessment/Plan 1. COVID-19 pneumonia. - s/p decadron (06/22-06/28) - s/p broad-spectrum antibiotics - s/p remdesivir - CXR 06/26 better - CXR 07/12 no significant change - on Solu-Medrol (07/13-) - Has RUL collapse; will intensify pulmonary hygiene - Cannot bronch... high risk 2. Respiratory failure. - desaturated on 50%; coded on 07/19/20 - intubated - On AC; FiO2 100% 3. Pulmonary embolism. - s/p heparin - Back on Lovenox as he cannot tolerate PO meds - D-Dimer 07/16 1.34 4. Troponin leak. - 2D echo showed LV EF 65% 5. Malnutrition - s/p PICC line and TPN (07/13) 6. Leukocytosis -ID following 7. Toe discoloration - suspect HIT -noted hematology eval Discussed with Poor prognosis Gurdeep Reyes MD Jul 21, 2020 09:46
--- NOTE | 2020-07-21 10:07 | NUR ---
RD ASSESSMENT & RECOMMENDATIONS SEE CARE ACTIVITY FOR COMPLETE ASSESSMENT DAILY ESTIMATED NEEDS: Needs based on Critical care 62kg 22-30 kcals/kg 5206-6184 total kcals 1.25-2 g protein/kg 77-124 g total protein 25-30 mL/kg 0992-9844 total fluid mLs NUTRITION DIAGNOSIS: Predicted poor po intake r/t respiratory status/ bipap use as evidenced by pt is covid ++, on bipap, s/p code blue, now intubated, on TPN. CURRENT DIET:NPO, on TPN ENTERAL NUTRITION RECOMMENDATIONS: Vital 1.2 goal of 45ml/hr x24 hrs WITH PROPOFOL to provide 1080ml, 1296 kcal, 81g pro, 876ml free H2O - S/p code blue now intubated, rec non oral feeds and DC TPN - Obtain GI access, start Vital 1.2 @15ml/hr for 6 hrs. Advance as tolerated to goal - WITH CURRENT PROPOFOL RATE OF 13.44ML/HR (PROVIDES 355 KCAL), REC LOW TF RATE OF 45ML/HR. - Flush per HOB over 30 degrees Re-evaluate TF goal rate w/ changes in propofol rate- currently at 13.44ml/hr PARENTERAL NUTRITION RECOMMENDATIONS: TPN Comment: Pt now intubated s/p Code Blue, rec to DC TPN as pt is more appropriate for non oral feeds/ OGT/ NGT feeds. ADDITIONAL RECOMMENDATIONS: 1) PT w/ prolonged poor PO/refusals -> now on TPN 2) Check HgA1C ----> 7.2 3) Monitor BGs closely w/ Solumedrol + TPN BGs 200's-500's prior to TPN, monitor need to increase Levemir 4) Now intubated-> rec OGT/ NGT feeds 5) Monitor lytes, replete as needed 6) Monitor hydration status, need for additional fluids: elev BUN
--- NOTE | 2020-07-21 10:25 | Infectious Diseases Prog Note ---
Assessment/Plan Assessment/Plan IMPRESSION: 1. leukocytosis resolved 2. COVID-19 pneumonia. 3. Pulmonary emboli. 4. Hypoxic respiratory failure, 5. Elevated troponin. 6. Fever 7. Toes gangrene RECOMMENDATION: Finished Remdesivir course Continue Solumedrol tapering Blood culture from PICC line UA, Urine culture CXR in am Start on Rocephin & Vancomycin Subjective ROS Limited/Unobtainable: Yes Constitutional: Reports: fever, other - [id number] Neurologic: Reports: other - sedated on restraint Allergies: Coded Allergies: No Known Allergies (Unverified , 06/18/20) Objective Last 24 Hour Vital Signs Date Time Temp Pulse Resp B/P (MAP) Pulse Ox O2 Delivery O2 Flow Rate FiO2 07/21/20 08:00 109 07/21/20 08:00 100 07/21/20 08:00 Mechanical Ventilator 07/21/20 07:00 34 109/67 Mechanical Ventilator 07/21/20 07:00 115 109/67 (81) 07/21/20 06:27 36 110/68 Mechanical Ventilator 100 07/21/20 06:26 34 110/68 07/21/20 06:00 34 110/68 Mechanical Ventilator 07/21/20 06:00 99.9 07/21/20 06:00 99.9 125 110/68 (82) 07/21/20 05:30 101.0 139 07/21/20 05:00 136 124/61 (82) 07/21/20 05:00 34 124/61 Mechanical Ventilator 07/21/20 04:00 33 128/54 Mechanical Ventilator 07/21/20 04:00 Mechanical Ventilator 07/21/20 04:00 98.8 137 137/67 (90) 07/21/20 04:00 139 07/21/20 04:00 100 07/21/20 03:00 132 35 100 07/21/20 03:00 136 153/77 (102) 07/21/20 03:00 33 153/77 Mechanical Ventilator 07/21/20 02:00 32 137/69 Mechanical Ventilator 07/21/20 02:00 131 31 146/70 (95) 95 07/21/20 01:00 126 30 154/84 (107) 100 07/21/20 01:00 30 154/84 Mechanical Ventilator 07/21/20 00:00 125 07/21/20 00:00 Mechanical Ventilator 07/21/20 00:00 31 143/73 Mechanical Ventilator 07/21/20 00:00 100 07/21/20 00:00 100 07/21/20 00:00 99.6 124 31 143/73 (96) 99 07/20/20 23:28 29 136/70 Mechanical Ventilator 100 07/20/20 23:00 31 136/70 Mechanical Ventilator 07/20/20 23:00 127 31 136/70 (92) 96 07/20/20 22:59 125 30 100 07/20/20 22:00 30 140/77 Mechanical Ventilator 07/20/20 22:00 125 30 140/77 (98) 95 07/20/20 21:00 129 30 137/67 (90) 97 07/20/20 21:00 30 137/67 Mechanical Ventilator 07/20/20 20:00 100 07/20/20 20:00 Mechanical Ventilator 07/20/20 20:00 122 07/20/20 20:00 30 139/67 Mechanical Ventilator 07/20/20 20:00 97.6 129 30 139/67 (91) 97 07/20/20 19:04 126 30 100 07/20/20 19:00 124 29 129/70 (89) 94 07/20/20 19:00 29 129/70 Mechanical Ventilator 100 07/20/20 18:00 26 139/69 Mechanical Ventilator 100 07/20/20 18:00 126 31 139/69 (92) 94 07/20/20 17:39 34 137/66 Mechanical Ventilator 100 07/20/20 17:00 125 31 140/68 (92) 95 07/20/20 17:00 31 140/68 Mechanical Ventilator 100 07/20/20 16:00 122 07/20/20 16:00 Mechanical Ventilator 07/20/20 16:00 27 141/65 Mechanical Ventilator 100 07/20/20 16:00 98.9 123 29 141/65 (90) 94 07/20/20 16:00 100 07/20/20 15:05 127 32 100 07/20/20 15:00 27 134/71 Mechanical Ventilator 100 07/20/20 15:00 121 26 134/71 (92) 93 07/20/20 14:00 118 27 124/68 (86) 94 07/20/20 14:00 26 124/68 Mechanical Ventilator 100 07/20/20 13:00 121 26 130/68 (88) 94 07/20/20 13:00 25 149/77 Mechanical Ventilator 100 07/20/20 12:00 98.0 106 25 149/77 (101) 96 07/20/20 12:00 104 07/20/20 12:00 Mechanical Ventilator 07/20/20 12:00 25 149/77 Mechanical Ventilator 100 07/20/20 12:00 100 07/20/20 11:05 97 30 100 07/20/20 11:00 97 29 138/70 (92) 95 07/20/20 11:00 29 138/70 Mechanical Ventilator 100 07/20/20 10:40 30 119/60 Mechanical Ventilator 100 07/20/20 10:39 28 127/68 Mechanical Ventilator 100 Height (Feet): 5 Height (Inches): 4.00 Weight (Pounds): 146 HEENT: other - orally intubated Respiratory/Chest: other - on ventilator, PEY4=599% Cardiovascular: tachycardia, other - left arm PICC line Abdomen: soft, non tender, other - orogastric tube Extremities: other - 2nd & 3rd left toes gangrene Neurologic/Psychiatric: other - sedated Laboratory Tests Test 07/20/20 11:25 07/20/20 15:15 07/20/20 16:52 07/20/20 18:00 White Blood Count 12.1 K/UL (4.8-10.8) H 13.7 K/UL (4.8-10.8) H Red Blood Count 3.24 M/UL (4.70-6.10) L 3.40 M/UL (4.70-6.10) L Hemoglobin 9.9 G/DL (14.2-18.0) L 10.2 G/DL (14.2-18.0) L Hematocrit 30.3 % (42.0-52.0) L 32.3 % (42.0-52.0) L Mean Corpuscular Volume 93 FL (80-99) 95 FL (80-99) Mean Corpuscular Hemoglobin 30.6 PG (27.0-31.0) 30.0 PG (27.0-31.0) Mean Corpuscular Hemoglobin Concent 32.8 G/DL (32.0-36.0) 31.6 G/DL (32.0-36.0) L Red Cell Distribution Width 13.4 % (11.6-14.8) 13.6 % (11.6-14.8) Platelet Count 51 K/UL (150-450) L 52 K/UL (150-450) L Mean Platelet Volume 13.8 FL (6.5-10.1) H 11.8 FL (6.5-10.1) H Neutrophils (%) (Auto) % (45.0-75.0) % (45.0-75.0) Lymphocytes (%) (Auto) % (20.0-45.0) % (20.0-45.0) Monocytes (%) (Auto) % (1.0-10.0) % (1.0-10.0) Eosinophils (%) (Auto) % (0.0-3.0) % (0.0-3.0) Basophils (%) (Auto) % (0.0-2.0) % (0.0-2.0) Differential Total Cells Counted 100 100 Neutrophils % (Manual) 65 % (45-75) 55 % (45-75) Lymphocytes % (Manual) 6 % (20-45) L 1 % (20-45) L Monocytes % (Manual) 3 % (1-10) 1 % (1-10) Eosinophils % (Manual) 0 % (0-3) 0 % (0-3) Basophils % (Manual) 0 % (0-2) 0 % (0-2) Band Neutrophils 26 % (0-8) H 43 % (0-8) H Platelet Estimate Decreased L Decreased L Platelet Morphology Normal Normal Hypochromasia 1+ 1+ POC Whole Blood Glucose Pending Activated Partial Thromboplast Time 42 SEC (23-33) H Heparin-PF4 Antibody Screen Pending Test 07/21/20 02:42 07/21/20 04:00 POC Whole Blood Glucose 245 MG/DL (74-106) H White Blood Count 9.6 K/UL (4.8-10.8) Red Blood Count 3.43 M/UL (4.70-6.10) L Hemoglobin 10.4 G/DL (14.2-18.0) L Hematocrit 33.1 % (42.0-52.0) L Mean Corpuscular Volume 97 FL (80-99) Mean Corpuscular Hemoglobin 30.5 PG (27.0-31.0) Mean Corpuscular Hemoglobin Concent 31.6 G/DL (32.0-36.0) L Red Cell Distribution Width 13.9 % (11.6-14.8) Platelet Count 59 K/UL (150-450) L Mean Platelet Volume 11.2 FL (6.5-10.1) H Neutrophils (%) (Auto) % (45.0-75.0) Lymphocytes (%) (Auto) % (20.0-45.0) Monocytes (%) (Auto) % (1.0-10.0) Eosinophils (%) (Auto) % (0.0-3.0) Basophils (%) (Auto) % (0.0-2.0) Differential Total Cells Counted 100 Neutrophils % (Manual) 61 % (45-75) Lymphocytes % (Manual) 2 % (20-45) L Monocytes % (Manual) 1 % (1-10) Eosinophils % (Manual) 0 % (0-3) Basophils % (Manual) 0 % (0-2) Band Neutrophils 36 % (0-8) H Platelet Estimate Decreased L Platelet Morphology Normal Hypochromasia 1+ Haptoglobin Pending Sodium Level 142 MMOL/L (136-145) Potassium Level 4.6 MMOL/L (3.5-5.1) Chloride Level 110 MMOL/L (98-107) H Carbon Dioxide Level 32 MMOL/L (21-32) Anion Gap 0 mmol/L (5-15) L Blood Urea Nitrogen 47 mg/dL (7-18) H Creatinine 1.0 MG/DL (0.55-1.30) Estimat Glomerular Filtration Rate > 60 mL/min (>60) Glucose Level 259 MG/DL (74-106) H Uric Acid 1.8 MG/DL (2.6-7.2) L Calcium Level 8.9 MG/DL (8.5-10.1) Phosphorus Level 2.9 MG/DL (2.5-4.9) Magnesium Level 2.0 MG/DL (1.8-2.4) Total Bilirubin 0.3 MG/DL (0.2-1.0) Aspartate Amino Transf (AST/SGOT) 16 U/L (15-37) Alanine Aminotransferase (ALT/SGPT) 35 U/L (12-78) Alkaline Phosphatase 133 U/L (46-116) H Lactate Dehydrogenase 447 U/L (81-234) H C-Reactive Protein, Quantitative 58.1 mg/dL (0.00-0.90) H Pro-B-Type Natriuretic Peptide 946 pg/mL (0-125) H Total Protein 5.8 G/DL (6.4-8.2) #L Albumin 1.1 G/DL (3.4-5.0) L Globulin 4.7 g/dL Albumin/Globulin Ratio 0.2 (1.0-2.7) L Triglycerides Level 213 MG/DL (30-150) H Current Medications Medications (Trade) Dose Ordered Sig/Yoselin Route PRN Reason Start Time Stop Time Status Last Admin Dose Admin Acetaminophen (Tylenol) 650 mg Q6H PRN ORAL For Pain 07/17/20 15:24 08/16/20 15:23 Acetaminophen (Tylenol) 650 mg Q6H PRN ORAL Temp >100.5 07/03/20 16:30 08/02/20 16:29 07/21/20 05:30 Acetaminophen (Tylenol) 650 mg Q6H PRN RECTAL Temp >100.5 07/04/20 20:45 08/03/20 20:44 07/19/20 20:24 Acetylcysteine (Mucomyst) 200 mg Q6HRT HHN 07/20/20 13:00 10/18/20 12:59 Chlorhexidine Gluconate (Kalie-Hex 2%) 1 applic DAILY@2000 TOPIC 07/13/20 20:00 10/11/20 19:59 07/20/20 20:17 Dextrose 1,000 ml @ 0 mls/hr Q24H PRN IV PN interrupted or unavailable 07/11/20 12:15 08/10/20 12:14 Dextrose (Dextrose 50%) 25 ml Q30M PRN IV Hypoglycemia 07/11/20 12:15 10/09/20 12:14 Dextrose (Dextrose 50%) 50 ml Q30M PRN IV Hypoglycemia 07/11/20 12:15 10/09/20 12:14 Enoxaparin Sodium (Lovenox) 60 mg EVERY 12 HOURS SUBQ 07/20/20 21:00 10/18/20 20:59 Famotidine (Pepcid I.v.) 40 mg DAILY IVP 07/08/20 09:00 08/01/20 20:59 07/21/20 09:31 Fat Emulsion Intravenous 192 ml/Amino Acids/ Electrolytes/ Dextrose 1,920 ml @ 80 mls/hr Q24H IV 07/20/20 20:00 08/19/20 19:59 07/20/20 20:19 Gentamicin Sulfate (Garamycin 0.3% Opt Soln) 2 drop EVERY 6 HOURS BOTH EYES 07/18/20 11:00 07/25/20 10:59 07/21/20 05:34 Insulin Aspart (NovoLOG) BEFORE MEALS AND HS SUBQ 07/08/20 16:30 10/06/20 16:29 07/21/20 06:33 Insulin Detemir (Levemir) 20 units Q12HR SUBQ 07/20/20 09:00 10/13/20 20:59 07/21/20 09:33 Methylprednisolone Sodium Succinate (Solu-MEDROL) 40 mg EVERY 12 HOURS IVP 07/20/20 21:00 10/18/20 20:59 07/21/20 09:32 Ondansetron HCl (Zofran) 4 mg Q6H PRN IVP Nausea & Vomiting 07/17/20 16:00 08/16/20 15:59 Propofol 100 ml @ 0 mls/hr Q12H IV 07/20/20 11:30 07/22/20 11:29 07/21/20 06:27 Arturo Dudley MD Jul 21, 2020 10:25
[2020-07-21] MEDS: cefTRIAXone 1 GM in D5W 55 ML IVPB SCH (11:28)
[2020-07-21] MEDS ORDERED: Vancomycin 1.25gm Premix IVPB ONE (11:30)
--- NOTE | 2020-07-21 11:48 | Diagnostic Imaging Report ---
Indication: Hypoxia, shortness of breath, lower extremity edema bilaterally, COVID positive Technique: Grayscale and duplex images of the bilateral lower extremity veins Comparison: none Findings: Bilaterally, grayscale and duplex images demonstrate no evidence of intraluminal thrombus. Normal phasic Doppler waveforms, demonstrating normal augmentation response and no evidence of valvular insufficiency. Greater saphenous vein(s) and tibial veins are patent. Normal compressibility. Impression: Negative for evidence of lower extremity deep venous thrombosis bilaterally
--- NOTE | 2020-07-21 12:52 | NUR ---
INSURANCE CLINCALS AND REVIEW FAXED TO [employer] T: [phone] F: [phone]
--- NOTE | 2020-07-21 13:39 | NUR ---
[employer] NOTE SW received a call from pt's , Jeanine Posada that she does not want the sister to receive information. Per , the sister was informed of pt's current status first (i.e. intubation) and she was never informed by our team. Thus, she wants to be the only emergency contact to avoid confusion. SW explained to the that pt initially provided verbal consent to release information. The still wants to be the only emergency contact. SW respects the 's wish as she is legally identified as the next of kin.
--- NOTE | 2020-07-21 14:30 | NUR ---
RESPIRATORY NOTE: PT was reintubated at this time. PT now on ETT 8.0 @ 23 cm at the lip. PT remains on AC/PC with current settings. Vt remains in the mid 300's. RN is aware. PT's current saturation is 84%. Will wait on further orders. Will continue to closely monitor.
--- NOTE | 2020-07-21 14:30 | NUR ---
NURSE NOTES: Patient reintubated. O2 saturation in 70's. Will contact .
--- NOTE | 2020-07-21 15:11 | NUR ---
NURSE NOTES: Ventilator settings changed.
--- NOTE | 2020-07-21 15:11 | NUR ---
RESPIRATORY NOTE: New ventilator order received AC/VC 25,400,100%,+14. Alarms we re-adjusted and are on and audible. Will continue to closely monitor. ABG to be drawn.
--- NOTE | 2020-07-21 15:13 | Emergency Room Report ---
History of Present Illness General Chief Complaint: Dyspnea/Respdistress Source: Patient Present Illness Allergies: Coded Allergies: No Known Allergies (Unverified , 06/18/20) COVID-19 Screening Contact w/high risk pt: Yes Experienced COVID-19 symptoms?: Yes COVID-19 Testing performed NETWORK MANAGER: No COVID-19 Screening: Positive COVID-19 Nursing Documentation-[facility] Past Medical History: No Stated History Hx Hypertension: Yes Hx Diabetes: Yes Physical Exam Vital Signs Date Time Temp Pulse Resp B/P (MAP) Pulse Ox O2 Delivery O2 Flow Rate FiO2 07/17/20 07:12 109 22 96 80 07/17/20 08:00 97.9 113/79 (90) 07/17/20 08:00 Bi-pap 100.0 Procedures Intubation Intubation : Consent: Emergent Intubation Method: orotracheal Tube Size (cm): 8.0 Breath Sounds after Intubation: equal Intubation Complications: no complications Post Intubation Xray: Yes Attempts: One Patient Tolerated: Well Complications: None Medical Decision Making Diagnostic Impression: Primary Impression: Hypoxia Additional Impressions: Pneumonia due to COVID-19 virus Pulmonary embolus Qualified Codes: I26.09 - Other pulmonary embolism with acute cor pulmonale NSTEMI (non-ST elevated myocardial infarction) ER Course I was called to the ICU to evaluate this patient. Had been previously intubated. Patient hypoxic. Not producing adequate tidal volumes. During assessment it appears that ET tube cough was torn. I removed ET tube and reintubated. Intubated without difficulty. O2 sats improved. Color change noted on capnography. Chest x-ray confirms ET tube placement. Care resumed by admitting physician Last Vital Signs Date Time Temp Pulse Resp B/P (MAP) Pulse Ox O2 Delivery O2 Flow Rate FiO2 07/21/20 13:46 33 160/123 100 07/21/20 12:00 120 07/21/20 08:00 Mechanical Ventilator 07/21/20 06:00 99.9 07/21/20 02:00 95 07/19/20 04:00 100.0 Status: improved Disposition: ADMITTED INPATIENT Condition: Critical Scripts No Active Prescriptions or Reported Meds Referrals: [facility],REFERRING (PCP) Kyle Lozoya MD Jul 21, 2020 15:13
--- NOTE | 2020-07-21 16:06 | Diagnostic Imaging Report ---
Procedure: XRAY Chest 1v Reason for study: Shortness of breath. Comparison films: 07/20/2020. FINDINGS: Endotracheal tube, NG tube and left PICC line remain in place. There are bilateral patchy infiltrates. There is a peripheral density noted in the lateral aspect of the left upper lung perhaps developing cavity. Cardiac and mediastinal silhouette are within normal limits. CP angles are sharp. The bony thorax appear unremarkable. IMPRESSION: Tubes and lines remain in place unchanged. Bilateral infiltrates with possible developing cavity in the left upper lobe.
[2020-07-21 16:26] LABS: INR 1.1 (0.9-1.1)
--- NOTE | 2020-07-21 16:30 | NUR ---
NURSE NOTES: Propofol held due to unstable vs.
--- NOTE | 2020-07-21 19:22 | NUR ---
NURSE NOTES: Received pt on agonal breathing, sat 70s rR 37/min. Bp 104/64 ST 130s on ther monitor, pts been off sedation, on TPN at 80 cc/hr at this time, Stat ABG was ordered and will call Dr Reyes. Will continue to monitor.
--- NOTE | 2020-07-21 19:22 | NUR ---
NURSE HAND-OFF REPORT: Latest Vital Signs: Temperature 99.2 , Pulse 135 , B/P 120 /52 , Respiratory Rate 40 , O2 SAT 88 , Mechanical Ventilator, O2 Flow Rate . Vital Sign Comment: Guarded. Hypoxic. EKG Rhythm: Sinus Tachycardia Rhythm change?: N MD Notified?: Y -Dr Leung covering for Dr. Kailee MAY Response: Latest Mcdowell Fall Score: 60 Fall Risk: High Risk Safety Measures: Call light Within Reach, Bed Alarm Zone 1, Side Rails Side Rails x3, Bed position Low and Locked. Fall Precautions: Door Sign Report given to Gloria AGUIRRE. Endorsed that patient had BM but was unable to be changed due to instability. Endorsed to follow up with RT regarding ventilator settings and abg.
[2020-07-21] MEDS: Dyna-Hex 2% Top Sol 2oz TOPIC SCH (19:56)
[2020-07-21] MEDS: TPN IV SCH (19:58)
[2020-07-21] MEDS: FAT EMULSION 20% IV SCH (19:58)
--- NOTE | 2020-07-21 20:13 | NUR ---
NURSE NOTES: called Dr Reyes, left abg result, awaiting for md to call back
--- NOTE | 2020-07-21 21:43 | NUR ---
NURSE NOTES: re called Dr Reyes with abg result
--- NOTE | 2020-07-21 21:46 | NUR ---
NURSE NOTES: Spoke to ng securities vault supervisor Sheila OWEN that Dr Reyes wasnt calling back. Ng securities vault supervisor verbalized to call back
--- NOTE | 2020-07-21 21:50 | NUR ---
NURSE NOTES: Dr Reyes finally called back and was aware with pts agonal breathing and blood gas as well as pts deteriorating condition. Md verbalized theres nothing more we can do.
--- NOTE | 2020-07-21 21:53 | NUR ---
NURSE NOTES: called Dr Milly Mejias with pts hypotension 86/41, ST 136/min. awaiting for md to call back
[2020-07-21] MEDS: Vancomycin 750mg/NS 275ml IVPB SCH ×2 (22:18)
--- NOTE | 2020-07-21 22:21 | NUR ---
NURSE NOTES: After 500ml fluid challenge [id number]. no need to start Levophed at this time.
[2020-07-22] VITALS (37 sets, daily range): BP systolic 69–132; BP diastolic 37–74
[2020-07-22] MEDS: Acetylcysteine 20% Soln 4ml HHN SCH ×4 (01:00→19:01)
--- NOTE | 2020-07-22 01:18 | Cardiology Progress Note ---
Subjective DATE OF SERVICE: Jul 21, 2020 Worsening cardiovascular parameters due to hypotension and tachycardia - with cont'd hypoxia on 100% FIO2. Remains in ICU on full vent support; s/p code blue due to hypoxia and seizure on 07/19. Left foot cold and bluish toe #3 - arterial duplex 07/17 without proximal obstruction. Monitor: sinus rhythm with tachycardia and rare ectopics 2D Echo - normal LVEF, no signs RV strain, normal PA pressure of 30mm Hg CXR (07/20) persisting ALMA infiltrate and improved right basilar infiltrate. Objective Last 24 Hour Vital Signs Date Time Temp Pulse Resp B/P (MAP) Pulse Ox O2 Delivery O2 Flow Rate FiO2 07/22/20 00:00 99.2 132 38 99/48 (65) 96 07/21/20 23:00 132 39 98/48 (65) 96 07/21/20 22:56 132 40 100 07/21/20 22:00 135 40 77/40 (52) 89 07/21/20 21:00 137 39 98/53 (68) 88 07/21/20 20:00 Mechanical Ventilator 07/21/20 20:00 99.0 138 38 98/49 (65) 87 07/21/20 19:59 132 33 100 07/21/20 19:49 132 33 100 07/21/20 19:00 135 40 120/52 (74) 88 07/21/20 18:25 100 07/21/20 18:00 135 37 107/52 (70) 90 07/21/20 17:00 137 37 102/51 (68) 92 07/21/20 16:30 41 87/42 Endotracheal Tube 100 07/21/20 16:00 Mechanical Ventilator 07/21/20 16:00 99.2 07/21/20 16:00 38 88/44 Endotracheal Tube 100 07/21/20 16:00 100 07/21/20 16:00 143 07/21/20 16:00 142 39 96/46 (63) 90 07/21/20 15:11 159 36 100 07/21/20 15:00 29 94/52 Endotracheal Tube 100 07/21/20 15:00 166 32 104/44 (64) 83 07/21/20 14:30 165 35 100 07/21/20 14:15 166 31 100 07/21/20 14:00 34 108/62 Endotracheal Tube 100 07/21/20 14:00 140 35 119/63 (81) 75 07/21/20 13:50 174 35 100 07/21/20 13:46 33 160/123 100 07/21/20 13:00 31 144/75 Endotracheal Tube 100 07/21/20 13:00 131 31 144/92 (109) 85 07/21/20 12:00 120 07/21/20 12:00 31 135/64 Endotracheal Tube 100 07/21/20 12:00 100 07/21/20 12:00 99.1 07/21/20 12:00 121 31 136/61 (86) 96 07/21/20 11:00 120 31 148/63 (91) 97 07/21/20 11:00 30 141/68 Endotracheal Tube 100 07/21/20 10:50 115 30 100 07/21/20 10:00 116 30 137/62 (87) 97 07/21/20 10:00 31 127/78 Endotracheal Tube 100 07/21/20 09:00 33 146/77 Endotracheal Tube 33 07/21/20 09:00 118 32 131/74 (93) 99 07/21/20 08:00 109 07/21/20 08:00 100 07/21/20 08:00 31 127/63 Endotracheal Tube 100 07/21/20 08:00 98.8 111 32 125/72 (89) 100 07/21/20 08:00 Mechanical Ventilator 07/21/20 07:17 110 32 100 07/21/20 07:00 34 109/67 Mechanical Ventilator 07/21/20 07:00 115 109/67 (81) 07/21/20 06:27 36 110/68 Mechanical Ventilator 100 07/21/20 06:26 34 110/68 07/21/20 06:00 34 110/68 Mechanical Ventilator 07/21/20 06:00 99.9 07/21/20 06:00 99.9 125 110/68 (82) 07/21/20 05:30 101.0 139 07/21/20 05:00 136 124/61 (82) 07/21/20 05:00 34 124/61 Mechanical Ventilator 07/21/20 04:00 33 128/54 Mechanical Ventilator 07/21/20 04:00 Mechanical Ventilator 07/21/20 04:00 98.8 137 137/67 (90) 07/21/20 04:00 139 07/21/20 04:00 100 07/21/20 03:00 132 35 100 07/21/20 03:00 136 153/77 (102) 07/21/20 03:00 33 153/77 Mechanical Ventilator 07/21/20 02:00 32 137/69 Mechanical Ventilator 07/21/20 02:00 131 31 146/70 (95) 95 ROS: unchanged from 06/19/20 HEENT: Mechanically Ventilated, Thin secretions ET Tube, other - bipap RHYTHM: ST LUNGS: bilat. rhonchi and rales CARDIAC: normal rate, regular rhythm, normal S1 and S2 ABDOMEN: normal bowel sounds, soft, distended EXTREMITIES: normal range of motion, non-tender, trace edema, other - left toes 1,2,3 with gangrenous changes - especially evident in 3rd toe. Laboratory Tests Test 07/21/20 02:42 07/21/20 04:00 07/21/20 13:53 07/21/20 14:50 POC Whole Blood Glucose 245 MG/DL (74-106) H White Blood Count 9.6 K/UL (4.8-10.8) Red Blood Count 3.43 M/UL (4.70-6.10) L Hemoglobin 10.4 G/DL (14.2-18.0) L Hematocrit 33.1 % (42.0-52.0) L Mean Corpuscular Volume 97 FL (80-99) Mean Corpuscular Hemoglobin 30.5 PG (27.0-31.0) Mean Corpuscular Hemoglobin Concent 31.6 G/DL (32.0-36.0) L Red Cell Distribution Width 13.9 % (11.6-14.8) Platelet Count 59 K/UL (150-450) L Mean Platelet Volume 11.2 FL (6.5-10.1) H Neutrophils (%) (Auto) % (45.0-75.0) Lymphocytes (%) (Auto) % (20.0-45.0) Monocytes (%) (Auto) % (1.0-10.0) Eosinophils (%) (Auto) % (0.0-3.0) Basophils (%) (Auto) % (0.0-2.0) Differential Total Cells Counted 100 Neutrophils % (Manual) 61 % (45-75) Lymphocytes % (Manual) 2 % (20-45) L Monocytes % (Manual) 1 % (1-10) Eosinophils % (Manual) 0 % (0-3) Basophils % (Manual) 0 % (0-2) Band Neutrophils 36 % (0-8) H Platelet Estimate Decreased L Platelet Morphology Normal Hypochromasia 1+ Haptoglobin Pending Sodium Level 142 MMOL/L (136-145) Potassium Level 4.6 MMOL/L (3.5-5.1) Chloride Level 110 MMOL/L (98-107) H Carbon Dioxide Level 32 MMOL/L (21-32) Anion Gap 0 mmol/L (5-15) L Blood Urea Nitrogen 47 mg/dL (7-18) H Creatinine 1.0 MG/DL (0.55-1.30) Estimat Glomerular Filtration Rate > 60 mL/min (>60) Glucose Level 259 MG/DL (74-106) H Uric Acid 1.8 MG/DL (2.6-7.2) L Calcium Level 8.9 MG/DL (8.5-10.1) Phosphorus Level 2.9 MG/DL (2.5-4.9) Magnesium Level 2.0 MG/DL (1.8-2.4) Total Bilirubin 0.3 MG/DL (0.2-1.0) Aspartate Amino Transf (AST/SGOT) 16 U/L (15-37) Alanine Aminotransferase (ALT/SGPT) 35 U/L (12-78) Alkaline Phosphatase 133 U/L (46-116) H Lactate Dehydrogenase 447 U/L (81-234) H C-Reactive Protein, Quantitative 58.1 mg/dL (0.00-0.90) H Pro-B-Type Natriuretic Peptide 946 pg/mL (0-125) H Total Protein 5.8 G/DL (6.4-8.2) #L Albumin 1.1 G/DL (3.4-5.0) L Globulin 4.7 g/dL Albumin/Globulin Ratio 0.2 (1.0-2.7) L Triglycerides Level 213 MG/DL (30-150) H Arterial Blood pH 7.306 (7.350-7.450) 7.094 (7.350-7.450) Arterial Blood Partial Pressure CO2 50.6 mmHg (35.0-45.0) H 62.5 mmHg (35.0-45.0) *H Arterial Blood Partial Pressure O2 38.7 mmHg (75.0-100.0) 51.0 mmHg (75.0-100.0) L Arterial Blood HCO3 24.7 mmol/L (22.0-26.0) 18.7 mmol/L (22.0-26.0) L Arterial Blood Oxygen Saturation 73.8 % (95-100) *L 75.1 % (95-100) *L Arterial Blood Base Excess -1.9 (-2-2) -11.0 (-2-2) *L Roshan Test Positive Positive Test 07/21/20 15:50 07/21/20 17:43 07/21/20 19:47 Prothrombin Time 12.3 SEC (9.30-11.50) H Prothromb Time International Ratio 1.1 (0.9-1.1) Heparin-PF4 Antibody Screen Pending Arterial Blood pH 7.273 (7.350-7.450) 7.242 (7.350-7.450) Arterial Blood Partial Pressure CO2 54.6 mmHg (35.0-45.0) H 61.5 mmHg (35.0-45.0) *H Arterial Blood Partial Pressure O2 45.8 mmHg (75.0-100.0) 37.0 mmHg (75.0-100.0) Arterial Blood HCO3 24.7 mmol/L (22.0-26.0) 25.9 mmol/L (22.0-26.0) Arterial Blood Oxygen Saturation 79.9 % (95-100) *L 67.0 % (95-100) *L Arterial Blood Base Excess -2.3 (-2-2) L -1.9 (-2-2) Roshan Test Positive Positive Assessment/Plan Assessment/Plan Shock Acute respiratory failure HC associated PNA COVID 19 PNA Hypoxia Ac pulmonary embolism Acute coronary syndrome/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 Sinus tachycardia Left LE ischemia Dehydration/hypernatremia Remains Critical and Guarded Fluid challenge; if inadequate response, will need pressor support. Vent support Free water replacement Full anticoagulation Antimicrobials Monitor for sustained atrial arrhythmias Replace lytes as needed Insulin cov'g by SS All discussed with ICU staff Aden Mejias MD Jul 22, 2020 01:18
--- NOTE | 2020-07-22 02:00 | NUR ---
NURSE NOTES: Sbop > 100, no levophed started atthis time.
--- NOTE | 2020-07-22 04:00 | NUR ---
NURSE NOTES: Complete bed bath with bed changed done.
[2020-07-22 05:48] LABS: APPEARANCE,URINE SLIGHTLY CLOUDY; BILIRUBIN, URINE NEGATIVE (NEGATIVE); GLUCOSE, URINE (UA) 3+ (NEGATIVE); KETONES,URINE NEGATIVE (NEGATIVE); LEUKOCYTE ESTERASE ,URINE 1+ (NEGATIVE); NITRITE,URINE NEGATIVE (NEGATIVE); PH,URINE 5 (4.5-8.0); PROTEIN,URINE 2+ (NEGATIVE); UROBILINOGEN,URINE NORMAL MG/DL (0.0-1.0)
[2020-07-22] MEDS: Gentamicin 0.3% Opth Soln 5ml BOTH EYES SCH ×4 (05:56→23:07)
[2020-07-22] MEDS: Vancomycin 750mg/NS 275ml IVPB SCH ×2 (05:56)
[2020-07-22 06:16] LABS: COLOR,URINE YELLOW
[2020-07-22] MEDS: NovoLOG Insulin Flexpen SUBQ SCH ×4 (06:19→20:37)
[2020-07-22 06:24] LABS: HEMATOCRIT 24.3 % (42.0-52.0); HEMOGLOBIN 7.6 G/DL (14.2-18.0); MEAN CORPUSCULAR VOLUME 96 FL (80-99); PLATELET COUNT 24 K/UL (150-450); RED BLOOD COUNT 2.54 M/UL (4.70-6.10); RED CELL DISTRIBUTION WIDTH 14.1 % (11.6-14.8); WHITE BLOOD COUNT 3.1 K/UL (4.8-10.8)
--- NOTE | 2020-07-22 06:26 | Hematology/Onc Progress Note ---
Assessment/Plan Assessment/Plan Assessment and recs # Thrombocytopenia, severe is less likely related to HIT, more likely to underlying infection and covid 19++ --> meds reviewed is too far out from getting heparin to be HIT --> DIC panel has been ordered-->reviewed --> continue on abx for now --> peripheral smear reviewed, no blasts noted --> rule out consumptive process --> transfuse to plt >20k -> plt 206->59 --> okay for LOVENOX best option we have at this time, trend plts closely --> also to r/o HIT, duplex ordered # RLL PE with R heart strain. --> was before heparin-->lovenox sq --> for now continue lovenox if no bleeding # Anemia of chronic disease --> hgb 10 --> no hemolysis is seen --> anemia panel is noted # COVID19+++ with Hypoxia --> s/p intubation # Pneumonia due to COVID-19 virus --> as per id vanc/ctx # NSTEMi --> per cards # Dysphagia s/p ogt # Dvt ppx lovenox Appreciate consultation and dw Rn Subjective HEENT: Denies: no symptoms, eye pain, blurred vision, tearing, double vision, ear pain, ear discharge, nose pain, nose congestion, throat pain, throat swelling, mouth pain, mouth swelling, other Cardiovascular: Denies: no symptoms, chest pain, edema, irregular heart rate, lightheadedness, palpitations, syncope, other Respiratory: Denies: no symptoms, cough, shortness of breath, SOB with excertion, SOB at rest, sputum, wheezing, other Allergies: Coded Allergies: No Known Allergies (Unverified , 06/18/20) Subjective 07/22 remains on vent, plt 59, hgb low, hit ab test pending, on lovenox sq Objective Objective Current Medications Medications (Trade) Dose Ordered Sig/Yoselin Route PRN Reason Start Time Stop Time Status Last Admin Dose Admin Acetaminophen (Tylenol) 650 mg Q6H PRN ORAL For Pain 07/17/20 15:24 08/16/20 15:23 Acetaminophen (Tylenol) 650 mg Q6H PRN ORAL Temp >100.5 07/03/20 16:30 08/02/20 16:29 07/21/20 05:30 Acetaminophen (Tylenol) 650 mg Q6H PRN RECTAL Temp >100.5 07/04/20 20:45 08/03/20 20:44 07/19/20 20:24 Acetylcysteine (Mucomyst) 200 mg Q6HRT HHN 07/20/20 13:00 10/18/20 12:59 Ceftriaxone Sodium 1 gm/ Dextrose 55 ml @ 110 mls/hr Q24H IVPB 07/21/20 11:00 07/28/20 10:59 07/21/20 11:28 Chlorhexidine Gluconate (Kalie-Hex 2%) 1 applic DAILY@2000 TOPIC 07/13/20 20:00 10/11/20 19:59 07/21/20 19:56 Dextrose 1,000 ml @ 0 mls/hr Q24H PRN IV PN interrupted or unavailable 07/11/20 12:15 08/10/20 12:14 Dextrose (Dextrose 50%) 25 ml Q30M PRN IV Hypoglycemia 07/11/20 12:15 10/09/20 12:14 Dextrose (Dextrose 50%) 50 ml Q30M PRN IV Hypoglycemia 07/11/20 12:15 10/09/20 12:14 Enoxaparin Sodium (Lovenox) 60 mg EVERY 12 HOURS SUBQ 07/20/20 21:00 10/18/20 20:59 Famotidine (Pepcid I.v.) 40 mg DAILY IVP 07/08/20 09:00 08/01/20 20:59 07/21/20 09:31 Fat Emulsion Intravenous 192 ml/Amino Acids/ Electrolytes/ Dextrose 1,920 ml @ 80 mls/hr Q24H IV 07/20/20 20:00 08/19/20 19:59 07/21/20 19:58 Gentamicin Sulfate (Garamycin 0.3% Opt Soln) 2 drop EVERY 6 HOURS BOTH EYES 07/18/20 11:00 07/25/20 10:59 07/22/20 05:56 Insulin Aspart (NovoLOG) BEFORE MEALS AND HS SUBQ 07/08/20 16:30 10/06/20 16:29 07/22/20 06:19 Insulin Detemir (Levemir) 20 units Q12HR SUBQ 07/20/20 09:00 10/13/20 20:59 07/21/20 21:28 Methylprednisolone Sodium Succinate (Solu-MEDROL) 40 mg EVERY 12 HOURS IVP 07/20/20 21:00 10/18/20 20:59 07/21/20 21:04 Ondansetron HCl (Zofran) 4 mg Q6H PRN IVP Nausea & Vomiting 07/17/20 16:00 08/16/20 15:59 Propofol 100 ml @ 0 mls/hr Q12H IV 07/20/20 11:30 07/22/20 11:29 07/21/20 13:46 Vancomycin HCl (Vanco pharmacy to dose) 1 ea DAILY PRN MISC Per rx protocol 07/21/20 10:30 08/20/20 10:29 Vancomycin HCl 750 mg/Sodium Chloride 275 ml @ 183.333 mls/hr Q8HR IVPB 07/21/20 22:00 07/26/20 21:59 07/22/20 05:56 Last 24 Hour Vital Signs Date Time Temp Pulse Resp B/P (MAP) Pulse Ox O2 Delivery O2 Flow Rate FiO2 07/22/20 05:00 101.0 125 40 100/43 (62) 96 07/22/20 04:00 127 07/22/20 04:00 Mechanical Ventilator 07/22/20 04:00 102.0 130 40 117/54 (75) 96 07/22/20 04:00 100 07/22/20 03:15 131 42 100 07/22/20 03:00 130 40 117/54 (75) 96 07/22/20 02:00 131 40 101/49 (66) 96 07/22/20 01:00 130 40 108/64 (79) 96 07/22/20 00:00 Mechanical Ventilator 07/22/20 00:00 99.2 132 38 99/48 (65) 96 07/22/20 00:00 Mechanical Ventilator 07/22/20 00:00 100 07/22/20 00:00 100 07/22/20 00:00 130 07/21/20 23:00 132 39 98/48 (65) 96 07/21/20 22:56 132 40 100 07/21/20 22:00 135 40 77/40 (52) 89 07/21/20 21:00 137 39 98/53 (68) 88 07/21/20 20:00 Mechanical Ventilator 07/21/20 20:00 136 07/21/20 20:00 99.0 138 38 98/49 (65) 87 07/21/20 20:00 100 07/21/20 19:59 132 33 100 07/21/20 19:49 132 33 100 07/21/20 19:00 135 40 120/52 (74) 88 07/21/20 18:25 100 07/21/20 18:00 135 37 107/52 (70) 90 07/21/20 17:00 137 37 102/51 (68) 92 07/21/20 16:30 41 87/42 Endotracheal Tube 100 07/21/20 16:00 Mechanical Ventilator 07/21/20 16:00 99.2 07/21/20 16:00 38 88/44 Endotracheal Tube 100 07/21/20 16:00 100 07/21/20 16:00 143 07/21/20 16:00 142 39 96/46 (63) 90 07/21/20 15:11 159 36 100 07/21/20 15:00 29 94/52 Endotracheal Tube 100 07/21/20 15:00 166 32 104/44 (64) 83 07/21/20 14:30 165 35 100 07/21/20 14:15 166 31 100 07/21/20 14:00 34 108/62 Endotracheal Tube 100 07/21/20 14:00 140 35 119/63 (81) 75 07/21/20 13:50 174 35 100 07/21/20 13:46 33 160/123 100 07/21/20 13:00 31 144/75 Endotracheal Tube 100 07/21/20 13:00 131 31 144/92 (109) 85 07/21/20 12:00 120 07/21/20 12:00 31 135/64 Endotracheal Tube 100 07/21/20 12:00 100 07/21/20 12:00 99.1 07/21/20 12:00 121 31 136/61 (86) 96 07/21/20 11:00 120 31 148/63 (91) 97 07/21/20 11:00 30 141/68 Endotracheal Tube 100 07/21/20 10:50 115 30 100 07/21/20 10:00 116 30 137/62 (87) 97 07/21/20 10:00 31 127/78 Endotracheal Tube 100 07/21/20 09:00 33 146/77 Endotracheal Tube 33 07/21/20 09:00 118 32 131/74 (93) 99 07/21/20 08:00 109 07/21/20 08:00 100 07/21/20 08:00 31 127/63 Endotracheal Tube 100 07/21/20 08:00 98.8 111 32 125/72 (89) 100 07/21/20 08:00 Mechanical Ventilator 07/21/20 07:17 110 32 100 07/21/20 07:00 34 109/67 Mechanical Ventilator 07/21/20 07:00 115 109/67 (81) 07/21/20 06:27 36 110/68 Mechanical Ventilator 100 07/21/20 06:26 34 110/68 07/21/20 06:00 34 110/68 Mechanical Ventilator 07/21/20 06:00 99.9 07/21/20 06:00 99.9 125 110/68 (82) 07/21/20 05:30 101.0 139 07/21/20 05:00 136 124/61 (82) 07/21/20 05:00 34 124/61 Mechanical Ventilator 07/21/20 04:00 33 128/54 Mechanical Ventilator 07/21/20 04:00 Mechanical Ventilator 07/21/20 04:00 98.8 137 137/67 (90) 07/21/20 04:00 139 07/21/20 04:00 100 07/21/20 03:00 132 35 100 07/21/20 03:00 136 153/77 (102) 07/21/20 03:00 33 153/77 Mechanical Ventilator 07/21/20 02:00 32 137/69 Mechanical Ventilator 07/21/20 02:00 131 31 146/70 (95) 95 07/21/20 01:00 126 30 154/84 (107) 100 07/21/20 01:00 30 154/84 Mechanical Ventilator 07/21/20 00:00 125 07/21/20 00:00 Mechanical Ventilator 07/21/20 00:00 31 143/73 Mechanical Ventilator 07/21/20 00:00 100 07/21/20 00:00 100 07/21/20 00:00 99.6 124 31 143/73 (96) 99 07/20/20 23:28 29 136/70 Mechanical Ventilator 100 07/20/20 23:00 31 136/70 Mechanical Ventilator 07/20/20 23:00 127 31 136/70 (92) 96 07/20/20 22:59 125 30 100 07/20/20 22:00 30 140/77 Mechanical Ventilator 07/20/20 22:00 125 30 140/77 (98) 95 07/20/20 21:00 129 30 137/67 (90) 97 07/20/20 21:00 30 137/67 Mechanical Ventilator 07/20/20 20:00 100 07/20/20 20:00 Mechanical Ventilator 07/20/20 20:00 122 07/20/20 20:00 30 139/67 Mechanical Ventilator 07/20/20 20:00 97.6 129 30 139/67 (91) 97 07/20/20 19:04 126 30 100 07/20/20 19:00 124 29 129/70 (89) 94 07/20/20 19:00 29 129/70 Mechanical Ventilator 100 07/20/20 18:00 26 139/69 Mechanical Ventilator 100 07/20/20 18:00 126 31 139/69 (92) 94 07/20/20 17:39 34 137/66 Mechanical Ventilator 100 07/20/20 17:00 125 31 140/68 (92) 95 07/20/20 17:00 31 140/68 Mechanical Ventilator 100 07/20/20 16:00 122 07/20/20 16:00 Mechanical Ventilator 07/20/20 16:00 27 141/65 Mechanical Ventilator 100 07/20/20 16:00 98.9 123 29 141/65 (90) 94 07/20/20 16:00 100 07/20/20 15:05 127 32 100 07/20/20 15:00 27 134/71 Mechanical Ventilator 100 07/20/20 15:00 121 26 134/71 (92) 93 07/20/20 14:00 118 27 124/68 (86) 94 07/20/20 14:00 26 124/68 Mechanical Ventilator 100 07/20/20 13:00 121 26 130/68 (88) 94 07/20/20 13:00 25 149/77 Mechanical Ventilator 100 07/20/20 12:00 98.0 106 25 149/77 (101) 96 07/20/20 12:00 104 07/20/20 12:00 Mechanical Ventilator 07/20/20 12:00 25 149/77 Mechanical Ventilator 100 07/20/20 12:00 100 07/20/20 11:05 97 30 100 07/20/20 11:00 97 29 138/70 (92) 95 07/20/20 11:00 29 138/70 Mechanical Ventilator 100 07/20/20 10:40 30 119/60 Mechanical Ventilator 100 07/20/20 10:39 28 127/68 Mechanical Ventilator 100 07/20/20 10:00 32 111/54 Mechanical Ventilator 100 07/20/20 10:00 96 32 111/60 (77) 92 07/20/20 09:00 28 118/60 Mechanical Ventilator 100 07/20/20 09:00 98 28 118/60 (79) 93 07/20/20 08:00 26 105/54 Mechanical Ventilator 100 07/20/20 08:00 99 07/20/20 08:00 Mechanical Ventilator 07/20/20 08:00 97.8 101 26 105/54 (71) 99 07/20/20 08:00 100 07/20/20 07:05 100 25 100 07/20/20 07:00 25 106/49 Mechanical Ventilator 100 07/20/20 07:00 104 25 106/49 (68) 100 Intake and Output 07/21/20 07/22/20 19:00 07:00 Intake Total 124.096 ml Output Total 460 ml 390 ml Balance -335.904 ml -390 ml IV Total 124.096 ml Output Urine Total 460 ml 390 ml # Bowel Movements 1 Labs Test 07/19/20 06:47 07/19/20 09:57 07/19/20 10:51 07/19/20 16:08 Arterial Blood pH 7.411 (7.350-7.450) 7.277 (7.350-7.450) Arterial Blood Partial Pressure CO2 38.7 mmHg (35.0-45.0) 57.5 mmHg (35.0-45.0) Arterial Blood Partial Pressure O2 33.5 mmHg (75.0-100.0) 31.6 mmHg (75.0-100.0) Arterial Blood HCO3 24.0 mmol/L (22.0-26.0) 26.2 mmol/L (22.0-26.0) Arterial Blood Oxygen Saturation 64.8 % (95-100) 52.2 % (95-100) Arterial Blood Base Excess -0.4 (-2-2) -1.4 (-2-2) Roshan Test Positive Positive POC Whole Blood Glucose 194 MG/DL (74-106) Test 07/20/20 05:27 07/20/20 08:19 07/20/20 11:25 07/20/20 15:15 White Blood Count 15.1 K/UL (4.8-10.8) 12.1 K/UL (4.8-10.8) 13.7 K/UL (4.8-10.8) Red Blood Count 2.80 M/UL (4.70-6.10) 3.24 M/UL (4.70-6.10) 3.40 M/UL (4.70-6.10) Hemoglobin 8.6 G/DL (14.2-18.0) 9.9 G/DL (14.2-18.0) 10.2 G/DL (14.2-18.0) Hematocrit 26.6 % (42.0-52.0) 30.3 % (42.0-52.0) 32.3 % (42.0-52.0) Mean Corpuscular Volume 95 FL (80-99) 93 FL (80-99) 95 FL (80-99) Mean Corpuscular Hemoglobin 30.8 PG (27.0-31.0) 30.6 PG (27.0-31.0) 30.0 PG (27.0-31.0) Mean Corpuscular Hemoglobin Concent 32.4 G/DL (32.0-36.0) 32.8 G/DL (32.0-36.0) 31.6 G/DL (32.0-36.0) Red Cell Distribution Width 13.4 % (11.6-14.8) 13.4 % (11.6-14.8) 13.6 % (11.6-14.8) Platelet Count 59 K/UL (150-450) 51 K/UL (150-450) 52 K/UL (150-450) Mean Platelet Volume 9.1 FL (6.5-10.1) 13.8 FL (6.5-10.1) 11.8 FL (6.5-10.1) Neutrophils (%) (Auto) % (45.0-75.0) % (45.0-75.0) % (45.0-75.0) Lymphocytes (%) (Auto) % (20.0-45.0) % (20.0-45.0) % (20.0-45.0) Monocytes (%) (Auto) % (1.0-10.0) % (1.0-10.0) % (1.0-10.0) Eosinophils (%) (Auto) % (0.0-3.0) % (0.0-3.0) % (0.0-3.0) Basophils (%) (Auto) % (0.0-2.0) % (0.0-2.0) % (0.0-2.0) Differential Total Cells Counted 100 100 100 Neutrophils % (Manual) 86 % (45-75) 65 % (45-75) 55 % (45-75) Lymphocytes % (Manual) 7 % (20-45) 6 % (20-45) 1 % (20-45) Monocytes % (Manual) 2 % (1-10) 3 % (1-10) 1 % (1-10) Eosinophils % (Manual) 0 % (0-3) 0 % (0-3) 0 % (0-3) Basophils % (Manual) 0 % (0-2) 0 % (0-2) 0 % (0-2) Band Neutrophils 5 % (0-8) 26 % (0-8) 43 % (0-8) Platelet Estimate Decreased Decreased Decreased Platelet Morphology Normal Normal Normal Hypochromasia 3+ 1+ 1+ Sodium Level 147 MMOL/L (136-145) Potassium Level 4.4 MMOL/L (3.5-5.1) Chloride Level 111 MMOL/L (98-107) Carbon Dioxide Level 24 MMOL/L (21-32) Anion Gap 12 mmol/L (5-15) Blood Urea Nitrogen 65 mg/dL (7-18) Creatinine 1.3 MG/DL (0.55-1.30) Estimat Glomerular Filtration Rate 58.2 mL/min (>60) Glucose Level 260 MG/DL (74-106) Calcium Level 7.8 MG/DL (8.5-10.1) Phosphorus Level 5.5 MG/DL (2.5-4.9) Magnesium Level 1.9 MG/DL (1.8-2.4) Total Bilirubin 0.3 MG/DL (0.2-1.0) Aspartate Amino Transf (AST/SGOT) 24 U/L (15-37) Alanine Aminotransferase (ALT/SGPT) 36 U/L (12-78) Alkaline Phosphatase 110 U/L (46-116) C-Reactive Protein, Quantitative < 0.4 mg/dL (0.00-0.90) Pro-B-Type Natriuretic Peptide 3425 pg/mL (0-125) Total Protein 4.3 G/DL (6.4-8.2) Albumin 1.5 G/DL (3.4-5.0) Globulin 2.8 g/dL Albumin/Globulin Ratio 0.5 (1.0-2.7) Triglycerides Level 137 MG/DL (30-150) Cholesterol Level 97 MG/DL (< 200) LDL Cholesterol 39 mg/dL (<100) HDL Cholesterol 17 MG/DL (40-60) Cholesterol/HDL Ratio 5.7 (3.3-4.4) Arterial Blood pH 7.294 (7.350-7.450) Arterial Blood Partial Pressure CO2 53.5 mmHg (35.0-45.0) Arterial Blood Partial Pressure O2 79.1 mmHg (75.0-100.0) Arterial Blood HCO3 25.4 mmol/L (22.0-26.0) Arterial Blood Oxygen Saturation 94.0 % (95-100) Arterial Blood Base Excess -1.6 (-2-2) Roshan Test Positive Test 07/20/20 16:52 07/20/20 18:00 07/21/20 02:42 07/21/20 04:00 Activated Partial Thromboplast Time 42 SEC (23-33) POC Whole Blood Glucose 245 MG/DL (74-106) White Blood Count 9.6 K/UL (4.8-10.8) Red Blood Count 3.43 M/UL (4.70-6.10) Hemoglobin 10.4 G/DL (14.2-18.0) Hematocrit 33.1 % (42.0-52.0) Mean Corpuscular Volume 97 FL (80-99) Mean Corpuscular Hemoglobin 30.5 PG (27.0-31.0) Mean Corpuscular Hemoglobin Concent 31.6 G/DL (32.0-36.0) Red Cell Distribution Width 13.9 % (11.6-14.8) Platelet Count 59 K/UL (150-450) Mean Platelet Volume 11.2 FL (6.5-10.1) Neutrophils (%) (Auto) % (45.0-75.0) Lymphocytes (%) (Auto) % (20.0-45.0) Monocytes (%) (Auto) % (1.0-10.0) Eosinophils (%) (Auto) % (0.0-3.0) Basophils (%) (Auto) % (0.0-2.0) Differential Total Cells Counted 100 Neutrophils % (Manual) 61 % (45-75) Lymphocytes % (Manual) 2 % (20-45) Monocytes % (Manual) 1 % (1-10) Eosinophils % (Manual) 0 % (0-3) Basophils % (Manual) 0 % (0-2) Band Neutrophils 36 % (0-8) Platelet Estimate Decreased Platelet Morphology Normal Hypochromasia 1+ Sodium Level 142 MMOL/L (136-145) Potassium Level 4.6 MMOL/L (3.5-5.1) Chloride Level 110 MMOL/L (98-107) Carbon Dioxide Level 32 MMOL/L (21-32) Anion Gap 0 mmol/L (5-15) Blood Urea Nitrogen 47 mg/dL (7-18) Creatinine 1.0 MG/DL (0.55-1.30) Estimat Glomerular Filtration Rate > 60 mL/min (>60) Glucose Level 259 MG/DL (74-106) Uric Acid 1.8 MG/DL (2.6-7.2) Calcium Level 8.9 MG/DL (8.5-10.1) Phosphorus Level 2.9 MG/DL (2.5-4.9) Magnesium Level 2.0 MG/DL (1.8-2.4) Total Bilirubin 0.3 MG/DL (0.2-1.0) Aspartate Amino Transf (AST/SGOT) 16 U/L (15-37) Alanine Aminotransferase (ALT/SGPT) 35 U/L (12-78) Alkaline Phosphatase 133 U/L (46-116) Lactate Dehydrogenase 447 U/L (81-234) C-Reactive Protein, Quantitative 58.1 mg/dL (0.00-0.90) Pro-B-Type Natriuretic Peptide 946 pg/mL (0-125) Total Protein 5.8 G/DL (6.4-8.2) Albumin 1.1 G/DL (3.4-5.0) Globulin 4.7 g/dL Albumin/Globulin Ratio 0.2 (1.0-2.7) Triglycerides Level 213 MG/DL (30-150) Test 07/21/20 13:53 07/21/20 14:50 07/21/20 15:50 07/21/20 17:43 Arterial Blood pH 7.306 (7.350-7.450) 7.094 (7.350-7.450) 7.273 (7.350-7.450) Arterial Blood Partial Pressure CO2 50.6 mmHg (35.0-45.0) 62.5 mmHg (35.0-45.0) 54.6 mmHg (35.0-45.0) Arterial Blood Partial Pressure O2 38.7 mmHg (75.0-100.0) 51.0 mmHg (75.0-100.0) 45.8 mmHg (75.0-100.0) Arterial Blood HCO3 24.7 mmol/L (22.0-26.0) 18.7 mmol/L (22.0-26.0) 24.7 mmol/L (22.0-26.0) Arterial Blood Oxygen Saturation 73.8 % (95-100) 75.1 % (95-100) 79.9 % (95-100) Arterial Blood Base Excess -1.9 (-2-2) -11.0 (-2-2) -2.3 (-2-2) Roshan Test Positive Positive Positive Prothrombin Time 12.3 SEC (9.30-11.50) Prothromb Time International Ratio 1.1 (0.9-1.1) Test 07/21/20 19:47 07/21/20 21:22 07/22/20 03:15 07/22/20 06:17 Arterial Blood pH 7.242 (7.350-7.450) Arterial Blood Partial Pressure CO2 61.5 mmHg (35.0-45.0) Arterial Blood Partial Pressure O2 37.0 mmHg (75.0-100.0) Arterial Blood HCO3 25.9 mmol/L (22.0-26.0) Arterial Blood Oxygen Saturation 67.0 % (95-100) Arterial Blood Base Excess -1.9 (-2-2) Roshan Test Positive POC Whole Blood Glucose 227 MG/DL (74-106) Urine Color Yellow Urine Appearance Slightly cloudy Urine pH 5 (4.5-8.0) Urine Specific Douglas 1.020 (1.005-1.035) Urine Protein 2+ (NEGATIVE) Urine Glucose (UA) 3+ (NEGATIVE) Urine Ketones Negative (NEGATIVE) Urine Blood 3+ (NEGATIVE) Urine Nitrite Negative (NEGATIVE) Urine Bilirubin Negative (NEGATIVE) Urine Urobilinogen Normal MG/DL (0.0-1.0) Urine Leukocyte Esterase 1+ (NEGATIVE) Urine RBC 5-10 /HPF (0 - 0) Urine WBC 2-4 /HPF (0 - 0) Urine Squamous Epithelial Cells Occasional /LPF Urine Amorphous Sediment Few /LPF (NONE) Urine Bacteria Many /HPF (NONE) Height (Feet): 5 Height (Inches): 4.00 Weight (Pounds): 146 Objective Sp02 EP Interpretation: reviewed General Appearance: alert, severe distress +++ogt Head: normocephalic ENT: moist mucus membranes Neck: supple, no meningismus Respiratory: no wheezing, respiratory distress +++vent Cardiovascular: no edema, tachycardia Gastrointestinal: normal inspection, normal bowel sounds, non tender, no mass, non-distended Musculoskeletal: back normal, normal range of motion, gait/station normal Neurologic: alert, oriented x3 Aleksander Doe MD Jul 22, 2020 06:26
--- NOTE | 2020-07-22 06:30 | NUR ---
NURSE NOTES: Pt heart rate went to Afib with RVR 190-[address]. [address] Mejias with order of cardizem 20mg IVP.
[2020-07-22 06:38] LABS: CALCIUM 8.3 MG/DL (8.5-10.1); CREATININE 2.6 MG/DL (0.55-1.30); POTASSIUM 5.6 MMOL/L (3.5-5.1)
[2020-07-22] MEDS ORDERED: dilTIAZem HCl 25mg/5ml Inj IVP SCH (06:45)
[2020-07-22 06:49] LABS: ALBUMIN 0.7 G/DL (3.4-5.0); ALBUMIN/GLOBULIN RATIO 0.2 (1.0-2.7); BILIRUBIN,TOTAL 0.2 MG/DL (0.2-1.0); PHOSPHORUS 3.6 MG/DL (2.5-4.9)
--- NOTE | 2020-07-22 07:28 | NUR ---
CASE MANAGEMENT:REVIEW 07/22/20 SI: COVID PNA. RESPIRATORY FAILURE ~ INTUBATED PULMONARY EMBOLI. S/P ARREST 07/19/20 CXR(+) MARCO A INFILTRATES W/POSSIBLE DEVELOPING CAVITY IN [place] 102.0 127 40 117/54 SATS~ 96% ON VENT SUPPORT W/100% FIO2 WBC-3.1 H/H-7.6/24.3 PLT-24 NA+150 K+5.6 BUN+96 CR+2.6 IS: IV CARDIZEM X1 TPN/IL @80/HR LEVOPHED GTT IV VANCOMYCIN Q8HRS IV ROCEPHIN Q24 IV SOLUMEDROL 40MG Q12 MUCOMYST INH Q6HRS PROPOFOL GTT LEVEMIR SQ Q12 IV PEPCID QD LOVENOX SQ Q12 : ICU STATUS DCP: FROM HOME PLAN: VENOUS DUPLEX (-) WEAN OXYGEN TOLERATED
--- NOTE | 2020-07-22 07:30 | NUR ---
NURSE NOTES: Report received from TIMOTHY Castro. Pt is obtunded. Orally intubated; ETT 8.0, 23cm @ the lip line. Vent settings; AC 25, TV 400, FiO2 100%, PEEP 14; O2sat 81%. AFIB w/ RVR on playground monitor; Cardizem IVP to be administered. OGT in place; currently NPO. Dutton catheter in place and draining. AFSANEH PICC running TPN @ 80mL/hr. Levophed to be started to maintain SBP >90 (current SBP in the 50's). Bed locked and in lowest position. Will resume plan of care.
[2020-07-22] MEDS: Norepinephrine 4mg/NS Premix 250 ML IV PRN ×3 (07:39→15:16)
--- NOTE | 2020-07-22 07:45 | NUR ---
NURSE NOTES: Levophed started for SBP in the 50's. Pt remains in Afib w/ RVR.
--- NOTE | 2020-07-22 07:47 | NUR ---
NURSE HAND-OFF REPORT: Latest Vital Signs: Temperature 99.8 , Pulse 189 , B/P 59 /21 , Respiratory Rate 40 , O2 SAT 96 , Endotracheal Tube, O2 Flow Rate . Vital Sign Comment: EKG Rhythm: Sinus Tachycardia Rhythm change?: N Notified?: Y -Dr Leung covering for Dr. Kailee MAY Response: Latest Mcdowell Fall Score: 60 Fall Risk: High Risk Safety Measures: Call light Within Reach, Bed Alarm Zone 1, Side Rails Side Rails x3, Bed position Low and Locked. Fall Precautions: Door Sign Report given to Re AGUIRRE.
[2020-07-22] MEDS: Solu-MEDROL 40mg Inj IVP SCH ×2 (08:35→20:33)
[2020-07-22] MEDS: Enoxaparin 60mg Inj SUBQ SCH ×2 (08:35→20:14)
[2020-07-22] MEDS: Levemir Flexpen SUBQ SCH (09:11)
[2020-07-22] MEDS: dilTIAZem Premix 125mg/125ml 125 ML IVPB PRN ×2 (09:13→16:40)
--- NOTE | 2020-07-22 09:15 | NUR ---
NURSE NOTES: Cardizem drip started
--- NOTE | 2020-07-22 10:00 | NUR ---
NURSE NOTES: Dr Saul at bedside assessing pt. Updated him on pt's current condition. He will put in new orders.
--- NOTE | 2020-07-22 10:15 | NUR ---
NURSE NOTES: Dr Reyes at bedside assessing pt. Updated him on pt's current condition. No new orders given at this time.
--- NOTE | 2020-07-22 10:35 | Pulmonology Progress Note ---
Subjective ROS Limited/Unobtainable: Yes Interval Events: Became hypoxic; coded; now intubated as of 07/19/20 Constitutional: Reports: fever, other - Jt=[id number] HEENT: Repors: no symptoms Respiratory: Reports: no symptoms Cardiovascular: Reports: no symptoms Gastrointestinal/Abdominal: Reports: no symptoms Allergies: Coded Allergies: No Known Allergies (Unverified , 06/18/20) Objective Last 24 Hour Vital Signs Date Time Temp Pulse Resp B/P (MAP) Pulse Ox O2 Delivery O2 Flow Rate FiO2 07/22/20 10:00 157 42 111/48 (69) 87 07/22/20 09:45 157 40 106/43 (64) 83 07/22/20 09:30 170 38 86/37 (53) 83 07/22/20 09:15 171 41 92/51 (65) 83 07/22/20 09:00 185 41 119/62 (81) 89 07/22/20 08:45 184 40 103/64 (77) 91 07/22/20 08:30 178 39 117/55 (75) 89 07/22/20 08:00 99.5 177 40 124/52 (76) 87 07/22/20 08:00 100 07/22/20 08:00 Mechanical Ventilator 07/22/20 07:51 166 42 100 07/22/20 07:39 59/21 07/22/20 07:38 189 59/21 07/22/20 07:15 189 38 69/54 (59) 78 07/22/20 07:00 99.8 130 40 69/54 (59) 96 07/22/20 06:30 190 40 99/50 (66) 96 07/22/20 06:00 99.8 130 40 117/54 (75) 96 07/22/20 05:00 101.0 125 40 100/43 (62) 96 07/22/20 04:00 127 07/22/20 04:00 Mechanical Ventilator 07/22/20 04:00 102.0 130 40 117/54 (75) 96 07/22/20 04:00 100 07/22/20 03:15 131 42 100 07/22/20 03:00 130 40 117/54 (75) 96 07/22/20 02:00 131 40 101/49 (66) 96 07/22/20 01:00 130 40 108/64 (79) 96 07/22/20 00:00 Mechanical Ventilator 07/22/20 00:00 99.2 132 38 99/48 (65) 96 07/22/20 00:00 Mechanical Ventilator 07/22/20 00:00 100 07/22/20 00:00 100 07/22/20 00:00 130 07/21/20 23:00 132 39 98/48 (65) 96 07/21/20 22:56 132 40 100 07/21/20 22:00 135 40 77/40 (52) 89 07/21/20 21:00 137 39 98/53 (68) 88 07/21/20 20:00 Mechanical Ventilator 07/21/20 20:00 136 07/21/20 20:00 99.0 138 38 98/49 (65) 87 07/21/20 20:00 100 07/21/20 19:59 132 33 100 07/21/20 19:49 132 33 100 07/21/20 19:00 135 40 120/52 (74) 88 07/21/20 18:25 100 07/21/20 18:00 135 37 107/52 (70) 90 07/21/20 17:00 137 37 102/51 (68) 92 07/21/20 16:30 41 87/42 Endotracheal Tube 100 07/21/20 16:00 Mechanical Ventilator 07/21/20 16:00 99.2 07/21/20 16:00 38 88/44 Endotracheal Tube 100 07/21/20 16:00 100 07/21/20 16:00 143 07/21/20 16:00 142 39 96/46 (63) 90 07/21/20 15:11 159 36 100 07/21/20 15:00 29 94/52 Endotracheal Tube 100 07/21/20 15:00 166 32 104/44 (64) 83 07/21/20 14:30 165 35 100 07/21/20 14:15 166 31 100 07/21/20 14:00 34 108/62 Endotracheal Tube 100 07/21/20 14:00 140 35 119/63 (81) 75 07/21/20 13:50 174 35 100 07/21/20 13:46 33 160/123 100 07/21/20 13:00 31 144/75 Endotracheal Tube 100 07/21/20 13:00 131 31 144/92 (109) 85 07/21/20 12:00 120 07/21/20 12:00 31 135/64 Endotracheal Tube 100 07/21/20 12:00 100 07/21/20 12:00 99.1 07/21/20 12:00 121 31 136/61 (86) 96 07/21/20 11:00 120 31 148/63 (91) 97 07/21/20 11:00 30 141/68 Endotracheal Tube 100 07/21/20 10:50 115 30 100 Intake and Output 07/21/20 07/22/20 19:00 07:00 Intake Total 124.096 ml 880 ml Output Total 460 ml 480 ml Balance -335.904 ml 400 ml IV Total 124.096 ml 880 ml Output Urine Total 460 ml 480 ml # Bowel Movements 1 General Appearance: no acute distress HEENT: normocephalic Respiratory: chest wall non-tender, lungs clear Cardiovascular: normal peripheral pulses Abdomen: normal bowel sounds Extremities: no cyanosis Laboratory Tests 07/21/20 13:53: Arterial Blood pH 7.306L, Arterial Blood Partial Pressure CO2 50.6H, Arterial Blood Partial Pressure O2 38.7*L, Arterial Blood HCO3 24.7, Arterial Blood Oxygen Saturation 73.8*L, Arterial Blood Base Excess -1.9, Roshan Test Positive 07/21/20 14:50: Arterial Blood pH 7.094*L, Arterial Blood Partial Pressure CO2 62.5*H, Arterial Blood Partial Pressure O2 51.0L, Arterial Blood HCO3 18.7L, Arterial Blood Oxygen Saturation 75.1*L, Arterial Blood Base Excess -11.0*L, Roshan Test Positive 07/21/20 15:50: Prothrombin Time 12.3H, Prothromb Time International Ratio 1.1, Heparin-PF4 Antibody Screen [Pending] 07/21/20 17:43: Arterial Blood pH 7.273L, Arterial Blood Partial Pressure CO2 54.6H, Arterial Blood Partial Pressure O2 45.8*L, Arterial Blood HCO3 24.7, Arterial Blood Oxygen Saturation 79.9*L, Arterial Blood Base Excess -2.3L, Roshan Test Positive 07/21/20 19:47: Arterial Blood pH 7.242*L, Arterial Blood Partial Pressure CO2 61.5*H, Arterial Blood Partial Pressure O2 37.0*L, Arterial Blood HCO3 25.9, Arterial Blood Oxygen Saturation 67.0*L, Arterial Blood Base Excess -1.9, Roshan Test Positive 07/21/20 21:22: POC Whole Blood Glucose 227H 07/22/20 03:15: Urine Color Yellow, Urine Appearance Slightly cloudy, Urine pH 5, Urine Specific [place] 1.020, Urine Protein 2+H, Urine Glucose (UA) 3+H, Urine Ketones Negative, Urine Blood 3+H, Urine Nitrite Negative, Urine Bilirubin Negative, Urine Urobilinogen Normal, Urine Leukocyte Esterase 1+H, Urine RBC 5-10H, Urine WBC 2-4, Urine Squamous Epithelial Cells Occasional, Urine Amorphous Sediment FewH, Urine Bacteria ManyH 07/22/20 06:17: White Blood Count 3.1#L, Red Blood Count 2.54L, Hemoglobin 7.6L, Hematocrit 24.3L, Mean Corpuscular Volume 96, Mean Corpuscular Hemoglobin 29.8, Mean Corpuscular Hemoglobin Concent 31.1L, Red Cell Distribution Width 14.1, Platelet Count 24#L, Mean Platelet Volume , Neutrophils (%) (Auto) , Lymphocytes (%) (Auto) , Monocytes (%) (Auto) , Eosinophils (%) (Auto) , Basophils (%) (Auto) , Differential Total Cells Counted 100, Neutrophils % (Manual) 74, Lymphocytes % (Manual) 13L, Monocytes % (Manual) 4, Eosinophils % (Manual) 0, Basophils % (Manual) 0, Metamyelocytes % 1H, Myelocytes % 2H, Band Neutrophils 6, Platelet E stimate DecreasedL, Platelet Morphology Normal, Hypochromasia 1+, Anisocytosis 1+, Sodium Level 150H, Potassium Level 5.6H, Chloride Level 117H, Carbon Dioxide Level 23, Anion Gap 10, Blood Urea Nitrogen 96H, Creatinine 2.6#H, Estimat Glomerular Filtration Rate 26.2, Glucose Level 180H, Calcium Level 8.3L, Phosphorus Level 3.6, Magnesium Level 2.0, Total Bilirubin 0.2, Aspartate Amino Transf (AST/SGOT) 24, Alanine Aminotransferase (ALT/SGPT) 25, Alkaline Phosphatase 84, C-Reactive Protein, Quantitative 48.2H, Pro-B-Type Natriuretic Peptide 99609O, Total Protein 4.3L, Albumin 0.7L, Globulin 3.6, Albumin/Globulin Ratio 0.2L, Triglycerides Level 190H Current Medications Medications (Trade) Dose Ordered Sig/Yoselin Route PRN Reason Start Time Stop Time Status Last Admin Dose Admin Acetaminophen (Tylenol) 650 mg Q6H PRN ORAL For Pain 07/17/20 15:24 08/16/20 15:23 Acetaminophen (Tylenol) 650 mg Q6H PRN ORAL Temp >100.5 07/03/20 16:30 08/02/20 16:29 07/21/20 05:30 Acetaminophen (Tylenol) 650 mg Q6H PRN RECTAL Temp >100.5 07/04/20 20:45 08/03/20 20:44 07/19/20 20:24 Acetylcysteine (Mucomyst) 200 mg Q6HRT HHN 07/20/20 13:00 10/18/20 12:59 Ceftriaxone Sodium 1 gm/ Dextrose 55 ml @ 110 mls/hr Q24H IVPB 07/21/20 11:00 07/28/20 10:59 07/21/20 11:28 Chlorhexidine Gluconate (Kalie-Hex 2%) 1 applic DAILY@2000 TOPIC 07/13/20 20:00 10/11/20 19:59 07/21/20 19:56 Dextrose 1,000 ml @ 0 mls/hr Q24H PRN IV PN interrupted or unavailable 07/11/20 12:15 08/10/20 12:14 Dextrose (Dextrose 50%) 25 ml Q30M PRN IV Hypoglycemia 07/11/20 12:15 10/09/20 12:14 Dextrose (Dextrose 50%) 50 ml Q30M PRN IV Hypoglycemia 07/11/20 12:15 10/09/20 12:14 Diltiazem HCl 125 ml @ 0 mls/hr Q24H PRN IVPB . 07/22/20 08:38 07/23/20 08:37 07/22/20 09:13 Enoxaparin Sodium (Lovenox) 60 mg EVERY 12 HOURS SUBQ 07/20/20 21:00 10/18/20 20:59 Famotidine (Pepcid I.v.) 40 mg DAILY IVP 07/08/20 09:00 08/01/20 20:59 07/22/20 08:35 Fat Emulsion Intravenous 192 ml/Amino Acids/ Electrolytes/ Dextrose 1,920 ml @ 80 mls/hr Q24H IV 07/20/20 20:00 08/19/20 19:59 07/21/20 19:58 Gentamicin Sulfate (Garamycin 0.3% Opth Soln) 2 drop EVERY 6 HOURS BOTH EYES 07/18/20 11:00 07/25/20 10:59 07/22/20 05:56 Insulin Aspart (NovoLOG) BEFORE MEALS AND HS SUBQ 07/08/20 16:30 10/06/20 16:29 07/22/20 06:19 Insulin Detemir (Levemir) 20 units Q12HR SUBQ 07/20/20 09:00 10/13/20 20:59 07/22/20 09:11 Methylprednisolone Sodium Succinate (Solu-MEDROL) 40 mg EVERY 12 HOURS IVP 07/20/20 21:00 10/18/20 20:59 07/22/20 08:35 Norepinephrine Bitartrate 250 ml @ 0 mls/hr Q24H PRN IV . 07/22/20 07:25 07/25/20 07:24 07/22/20 07:39 Ondansetron HCl (Zofran) 4 mg Q6H PRN IVP Nausea & Vomiting 07/17/20 16:00 08/16/20 15:59 Propofol 100 ml @ 0 mls/hr Q12H IV 07/20/20 11:30 07/22/20 11:29 07/21/20 13:46 Vancomycin HCl (Vanco pharmacy to dose) 1 ea DAILY PRN MISC Per rx protocol 07/21/20 10:30 08/20/20 10:29 Vancomycin HCl 750 mg/Sodium Chloride 275 ml @ 183.333 mls/hr Q8HR IVPB 07/21/20 22:00 07/26/20 21:59 07/22/20 05:56 Assessment/Plan Assessment/Plan 1. COVID-19 pneumonia. - s/p decadron (06/22-06/28) - s/p broad-spectrum antibiotics - s/p remdesivir - CXR 06/26 better - CXR 07/12 no significant change - on Solu-Medrol (07/13-) - Has RUL collapse; will intensify pulmonary hygiene - Cannot bronch... high risk 2. Respiratory failure. - desaturated on 50%; coded on 07/19/20 - intubated - On AC; FiO2 100% 3. Pulmonary embolism. - s/p heparin - Back on Lovenox as he cannot tolerate PO meds - D-Dimer 07/16 1.34 4. Troponin leak. - 2D echo showed LV EF 65% 5. Malnutrition - s/p PICC line and TPN (07/13) 6. Leukocytosis -ID following 7. Toe discoloration - suspect HIT -noted hematology eval Discussed with Poor prognosis Will make DNR Gurdeep Reyes MD Jul 22, 2020 10:35
--- NOTE | 2020-07-22 11:00 | NUR ---
NURSE NOTES: Dr Eric mesa with pt's , who decided to change pt's resuscitation status to DNR.
[2020-07-22] MEDS: cefTRIAXone 1 GM in D5W 55 ML IVPB SCH (11:16)
--- NOTE | 2020-07-22 11:30 | NUR ---
NURSE NOTES: Dr Reyes aware of labs and low platelets.
--- NOTE | 2020-07-22 11:43 | Infectious Diseases Prog Note ---
Assessment/Plan Assessment/Plan antibiotics : vancomycin iv, ceftriaxone A 1. COVID 19 pneumonia on 100 % Fi O2 with 87 % saturation s/p remdesivir 2. pulmonary embolism 3. respiratory failure 4. renal failure 5. thrombocytopenia P 1. continue solumedrol 2. continue ceftriaxone 3. d/c iv vancomycin 4. continue isolation Subjective ROS Limited/Unobtainable: Yes Allergies: Coded Allergies: No Known Allergies (Unverified , 06/18/20) Objective Last 24 Hour Vital Signs Date Time Temp Pulse Resp B/P (MAP) Pulse Ox O2 Delivery O2 Flow Rate FiO2 07/22/20 11:17 99/48 07/22/20 10:00 157 42 111/48 (69) 87 07/22/20 09:45 157 40 106/43 (64) 83 07/22/20 09:30 170 38 86/37 (53) 83 07/22/20 09:15 171 41 92/51 (65) 83 07/22/20 09:00 185 41 119/62 (81) 89 07/22/20 08:45 184 40 103/64 (77) 91 07/22/20 08:30 178 39 117/55 (75) 89 07/22/20 08:00 99.5 177 40 124/52 (76) 87 07/22/20 08:00 100 07/22/20 08:00 Mechanical Ventilator 07/22/20 07:51 166 42 100 07/22/20 07:39 59/21 07/22/20 07:38 189 59/21 07/22/20 07:15 189 38 69/54 (59) 78 07/22/20 07:00 99.8 130 40 69/54 (59) 96 07/22/20 06:30 190 40 99/50 (66) 96 07/22/20 06:00 99.8 130 40 117/54 (75) 96 07/22/20 05:00 101.0 125 40 100/43 (62) 96 07/22/20 04:00 127 07/22/20 04:00 Mechanical Ventilator 07/22/20 04:00 102.0 130 40 117/54 (75) 96 07/22/20 04:00 100 07/22/20 03:15 131 42 100 07/22/20 03:00 130 40 117/54 (75) 96 07/22/20 02:00 131 40 101/49 (66) 96 07/22/20 01:00 130 40 108/64 (79) 96 07/22/20 00:00 Mechanical Ventilator 07/22/20 00:00 99.2 132 38 99/48 (65) 96 07/22/20 00:00 Mechanical Ventilator 07/22/20 00:00 100 07/22/20 00:00 100 07/22/20 00:00 130 07/21/20 23:00 132 39 98/48 (65) 96 07/21/20 22:56 132 40 100 07/21/20 22:00 135 40 77/40 (52) 89 07/21/20 21:00 137 39 98/53 (68) 88 07/21/20 20:00 Mechanical Ventilator 07/21/20 20:00 136 07/21/20 20:00 99.0 138 38 98/49 (65) 87 07/21/20 20:00 100 07/21/20 19:59 132 33 100 07/21/20 19:49 132 33 100 07/21/20 19:00 135 40 120/52 (74) 88 07/21/20 18:25 100 07/21/20 18:00 135 37 107/52 (70) 90 07/21/20 17:00 137 37 102/51 (68) 92 07/21/20 16:30 41 87/42 Endotracheal Tube 100 07/21/20 16:00 Mechanical Ventilator 07/21/20 16:00 99.2 07/21/20 16:00 38 88/44 Endotracheal Tube 100 07/21/20 16:00 100 07/21/20 16:00 143 07/21/20 16:00 142 39 96/46 (63) 90 07/21/20 15:11 159 36 100 07/21/20 15:00 29 94/52 Endotracheal Tube 100 07/21/20 15:00 166 32 104/44 (64) 83 07/21/20 14:30 165 35 100 07/21/20 14:15 166 31 100 07/21/20 14:00 34 108/62 Endotracheal Tube 100 07/21/20 14:00 140 35 119/63 (81) 75 07/21/20 13:50 174 35 100 07/21/20 13:46 33 160/123 100 07/21/20 13:00 31 144/75 Endotracheal Tube 100 07/21/20 13:00 131 31 144/92 (109) 85 07/21/20 12:00 120 07/21/20 12:00 31 135/64 Endotracheal Tube 100 07/21/20 12:00 100 07/21/20 12:00 99.1 07/21/20 12:00 121 31 136/61 (86) 96 Height (Feet): 5 Height (Inches): 4.00 Weight (Pounds): 146 Laboratory Tests Test 07/21/20 13:53 07/21/20 14:50 07/21/20 15:50 07/21/20 17:43 Arterial Blood pH 7.306 (7.350-7.450) 7.094 (7.350-7.450) 7.273 (7.350-7.450) Arterial Blood Partial Pressure CO2 50.6 mmHg (35.0-45.0) H 62.5 mmHg (35.0-45.0) *H 54.6 mmHg (35.0-45.0) H Arterial Blood Partial Pressure O2 38.7 mmHg (75.0-100.0) 51.0 mmHg (75.0-100.0) L 45.8 mmHg (75.0-100.0) Arterial Blood HCO3 24.7 mmol/L (22.0-26.0) 18.7 mmol/L (22.0-26.0) L 24.7 mmol/L (22.0-26.0) Arterial Blood Oxygen Saturation 73.8 % (95-100) *L 75.1 % (95-100) *L 79.9 % (95-100) *L Arterial Blood Base Excess -1.9 (-2-2) -11.0 (-2-2) *L -2.3 (-2-2) L Roshan Test Positive Positive Positive Prothrombin Time 12.3 SEC (9.30-11.50) H Prothromb Time International Ratio 1.1 (0.9-1.1) Heparin-PF4 Antibody Screen Pending Test 07/21/20 19:47 07/21/20 21:22 07/22/20 03:15 07/22/20 06:17 Arterial Blood pH 7.242 (7.350-7.450) Arterial Blood Partial Pressure CO2 61.5 mmHg (35.0-45.0) *H Arterial Blood Partial Pressure O2 37.0 mmHg (75.0-100.0) Arterial Blood HCO3 25.9 mmol/L (22.0-26.0) Arterial Blood Oxygen Saturation 67.0 % (95-100) *L Arterial Blood Base Excess -1.9 (-2-2) Roshan Test Positive POC Whole Blood Glucose 227 MG/DL (74-106) H Urine Color Yellow Urine Appearance Slightly cloudy Urine pH 5 (4.5-8.0) Urine Specific [place] 1.020 (1.005-1.035) Urine Protein 2+ (NEGATIVE) H Urine Glucose (UA) 3+ (NEGATIVE) H Urine Ketones Negative (NEGATIVE) Urine Blood 3+ (NEGATIVE) H Urine Nitrite Negative (NEGATIVE) Urine Bilirubin Negative (NEGATIVE) Urine Urobilinogen Normal MG/DL (0.0-1.0) Urine Leukocyte Esterase 1+ (NEGATIVE) H Urine RBC 5-10 /HPF (0 - 0) H Urine WBC 2-4 /HPF (0 - 0) Urine Squamous Epithelial Cells Occasional /LPF Urine Amorphous Sediment Few /LPF (NONE) H Urine Bacteria Many /HPF (NONE) H White Blood Count 3.1 K/UL (4.8-10.8) #L Red Blood Count 2.54 M/UL (4.70-6.10) L Hemoglobin 7.6 G/DL (14.2-18.0) L Hematocrit 24.3 % (42.0-52.0) L Mean Corpuscular Volume 96 FL (80-99) Mean Corpuscular Hemoglobin 29.8 PG (27.0-31.0) Mean Corpuscular Hemoglobin Concent 31.1 G/DL (32.0-36.0) L Red Cell Distribution Width 14.1 % (11.6-14.8) Platelet Count 24 K/UL (150-450) #L Mean Platelet Volume FL (6.5-10.1) Neutrophils (%) (Auto) % (45.0-75.0) Lymphocytes (%) (Auto) % (20.0-45.0) Monocytes (%) (Auto) % (1.0-10.0) Eosinophils (%) (Auto) % (0.0-3.0) Basophils (%) (Auto) % (0.0-2.0) Differential Total Cells Counted 100 Neutrophils % (Manual) 74 % (45-75) Lymphocytes % (Manual) 13 % (20-45) L Monocytes % (Manual) 4 % (1-10) Eosinophils % (Manual) 0 % (0-3) Basophils % (Manual) 0 % (0-2) Metamyelocytes % 1 % (0-0) H Myelocytes % 2 % (0-0) H Band Neutrophils 6 % (0-8) Platelet Estimate Decreased L Platelet Morphology Normal Hypochromasia 1+ Anisocytosis 1+ Sodium Level 150 MMOL/L (136-145) H Potassium Level 5.6 MMOL/L (3.5-5.1) H Chloride Level 117 MMOL/L (98-107) H Carbon Dioxide Level 23 MMOL/L (21-32) Anion Gap 10 mmol/L (5-15) Blood Urea Nitrogen 96 mg/dL (7-18) H Creatinine 2.6 MG/DL (0.55-1.30) #H Estimat Glomerular Filtration Rate 26.2 mL/min (>60) Glucose Level 180 MG/DL (74-106) H Calcium Level 8.3 MG/DL (8.5-10.1) L Phosphorus Level 3.6 MG/DL (2.5-4.9) Magnesium Level 2.0 MG/DL (1.8-2.4) Total Bilirubin 0.2 MG/DL (0.2-1.0) Aspartate Amino Transf (AST/SGOT) 24 U/L (15-37) Alanine Aminotransferase (ALT/SGPT) 25 U/L (12-78) Alkaline Phosphatase 84 U/L (46-116) C-Reactive Protein, Quantitative 48.2 mg/dL (0.00-0.90) H Pro-B-Type Natriuretic Peptide 00398 pg/mL (0-125) H Total Protein 4.3 G/DL (6.4-8.2) L Albumin 0.7 G/DL (3.4-5.0) L Globulin 3.6 g/dL Albumin/Globulin Ratio 0.2 (1.0-2.7) L Triglycerides Level 190 MG/DL (30-150) H Test 07/22/20 11:26 POC Whole Blood Glucose 200 MG/DL (74-106) H Current Medications Medications (Trade) Dose Ordered Sig/Yoselin Route PRN Reason Start Time Stop Time Status Last Admin Dose Admin Acetaminophen (Tylenol) 650 mg Q6H PRN ORAL For Pain 07/17/20 15:24 08/16/20 15:23 Acetaminophen (Tylenol) 650 mg Q6H PRN ORAL Temp >100.5 07/03/20 16:30 08/02/20 16:29 07/21/20 05:30 Acetaminophen (Tylenol) 650 mg Q6H PRN RECTAL Temp >100.5 07/04/20 20:45 08/03/20 20:44 07/19/20 20:24 Acetylcysteine (Mucomyst) 200 mg Q6HRT HHN 07/20/20 13:00 10/18/20 12:59 Ceftriaxone Sodium 1 gm/ Dextrose 55 ml @ 110 mls/hr Q24H IVPB 07/21/20 11:00 07/28/20 10:59 07/22/20 11:16 Chlorhexidine Gluconate (Kalie-Hex 2%) 1 applic DAILY@2000 TOPIC 07/13/20 20:00 10/11/20 19:59 07/21/20 19:56 Dextrose 1,000 ml @ 0 mls/hr Q24H PRN IV PN interrupted or unavailable 07/11/20 12:15 08/10/20 12:14 Dextrose (Dextrose 50%) 25 ml Q30M PRN IV Hypoglycemia 07/11/20 12:15 10/09/20 12:14 Dextrose (Dextrose 50%) 50 ml Q30M PRN IV Hypoglycemia 07/11/20 12:15 10/09/20 12:14 Diltiazem HCl 125 ml @ 0 mls/hr Q24H PRN IVPB . 07/22/20 08:38 07/23/20 08:37 07/22/20 09:13 Enoxaparin Sodium (Lovenox) 60 mg EVERY 12 HOURS SUBQ 07/20/20 21:00 10/18/20 20:59 Famotidine (Pepcid I.v.) 40 mg DAILY IVP 07/08/20 09:00 08/01/20 20:59 07/22/20 08:35 Fat Emulsion Intravenous 192 ml/Amino Acids/ Electrolytes/ Dextrose 1,920 ml @ 80 mls/hr Q24H IV 07/20/20 20:00 08/19/20 19:59 07/21/20 19:58 Gentamicin Sulfate (Garamycin 0.3% Opth Soln) 2 drop EVERY 6 HOURS BOTH EYES 07/18/20 11:00 07/25/20 10:59 07/22/20 11:33 Insulin Aspart (NovoLOG) BEFORE MEALS AND HS SUBQ 07/08/20 16:30 10/06/20 16:29 07/22/20 11:33 Insulin Detemir (Levemir) 20 units Q12HR SUBQ 07/20/20 09:00 10/13/20 20:59 07/22/20 09:11 Methylprednisolone Sodium Succinate (Solu-MEDROL) 40 mg EVERY 12 HOURS IVP 07/20/20 21:00 10/18/20 20:59 07/22/20 08:35 Norepinephrine Bitartrate 250 ml @ 0 mls/hr Q24H PRN IV . 07/22/20 07:25 07/25/20 07:24 07/22/20 11:17 Ondansetron HCl (Zofran) 4 mg Q6H PRN IVP Nausea & Vomiting 07/17/20 16:00 08/16/20 15:59 Vancomycin HCl (Vanco pharmacy to dose) 1 ea DAILY PRN MISC Per rx protocol 07/21/20 10:30 08/20/20 10:29 Vancomycin HCl 750 mg/Sodium Chloride 275 ml @ 183.333 mls/hr Q8HR IVPB 07/21/20 22:00 07/26/20 21:59 07/22/20 05:56 Swapna Falk MD Jul 22, 2020 11:43
--- NOTE | 2020-07-22 13:00 | NUR ---
NURSE NOTES: Pt remains on Levophed @ 16mcg/min and Cardizem @ 15mg/hr. HR remains in the 120's at this time. Pt tachypneic
--- NOTE | 2020-07-22 14:30 | NUR ---
NURSE NOTES: Temp of 101.5. Cooling measures initiated. Tylenol given
--- NOTE | 2020-07-22 14:34 | Nephrology Progress Note ---
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 TPN stopped. Labs reviewed. Serum creatinine glenroy. Maintenance IV started. Patient DNR. No dialysis is suggested. Continue current management.Eric July 21: Patient remains in ICU. Full code. On TPN. Labs reviewed. Electrolytes and renal parameters stable. Continue TPN as is. Discussed with pharmacy. July 20: Remains in ICU, full code, intubated, on ventilator. On TPN. Labs reviewed. Serum creatinine and serum phosphorus rising. Adjustment done with pharmacy regarding TPN. Continue to monitor renal parameters. July 19: Now in ICU and intubated. Labs reviewed. Able from renal standpoint of view and on TPN. Continue per pulmonary and ID. July 18: Remains on TPN. Full code. Labs reviewed. Discussed with pharmacy. Continue as is. July 17: Remains on TPN. Labs reviewed. Discussed with pharmacy. Continue as is. July 16: Remains on TPN. Labs reviewed. Sodium slightly elevated. Levemir dose increased for better blood sugar control. Discussed with pharmacy. Continue to monitor electrolytes. July 15: On TPN. Labs reviewed. Continue TPN as is. Adjust insulin for blood sugar control. Per orders. July 14: Patient started on TPN since last night. We will continue to monitor electrolytes and renal parameters and adjust TPN composition as needed. Discussed with pharmacy. July 13: Due for PICC line today and initiation of TPN. Low magnesium addressed. Continue per current management. July 12: Remains full code. Remains on BiPAP. Labs reviewed. Low potassium and phosphorus addressed. Awaiting initiation of TPN. Subjective ROS Limited/Unobtainable: Yes Objective Objective Last 24 Hour Vital Signs Date Time Temp Pulse Resp B/P (MAP) Pulse Ox O2 Delivery O2 Flow Rate FiO2 07/22/20 13:00 129 45 87/47 (60) 82 07/22/20 12:30 136 44 97/61 (73) 81 07/22/20 12:00 100.9 137 39 97/52 (67) 84 07/22/20 12:00 Mechanical Ventilator 07/22/20 12:00 100 07/22/20 11:45 123 39 100 07/22/20 11:30 141 43 109/74 (86) 84 07/22/20 11:17 99/48 07/22/20 11:00 149 38 103/61 (75) 86 07/22/20 10:00 157 42 111/48 (69) 87 07/22/20 09:45 157 40 106/43 (64) 83 07/22/20 09:30 170 38 86/37 (53) 83 07/22/20 09:15 171 41 92/51 (65) 83 07/22/20 09:00 185 41 119/62 (81) 89 07/22/20 08:45 184 40 103/64 (77) 91 07/22/20 08:30 178 39 117/55 (75) 89 07/22/20 08:00 99.5 177 40 124/52 (76) 87 07/22/20 08:00 100 07/22/20 08:00 Mechanical Ventilator 07/22/20 07:51 166 42 100 07/22/20 07:39 59/21 07/22/20 07:38 189 59/21 07/22/20 07:15 189 38 69/54 (59) 78 07/22/20 07:00 99.8 130 40 69/54 (59) 96 07/22/20 06:30 190 40 99/50 (66) 96 07/22/20 06:00 99.8 130 40 117/54 (75) 96 07/22/20 05:00 101.0 125 40 100/43 (62) 96 07/22/20 04:00 127 07/22/20 04:00 Mechanical Ventilator 07/22/20 04:00 102.0 130 40 117/54 (75) 96 07/22/20 04:00 100 07/22/20 03:15 131 42 100 07/22/20 03:00 130 40 117/54 (75) 96 07/22/20 02:00 131 40 101/49 (66) 96 07/22/20 01:00 130 40 108/64 (79) 96 07/22/20 00:00 Mechanical Ventilator 07/22/20 00:00 99.2 132 38 99/48 (65) 96 07/22/20 00:00 Mechanical Ventilator 07/22/20 00:00 100 07/22/20 00:00 100 07/22/20 00:00 130 07/21/20 23:00 132 39 98/48 (65) 96 07/21/20 22:56 132 40 100 07/21/20 22:00 135 40 77/40 (52) 89 07/21/20 21:00 137 39 98/53 (68) 88 07/21/20 20:00 Mechanical Ventilator 07/21/20 20:00 136 07/21/20 20:00 99.0 138 38 98/49 (65) 87 07/21/20 20:00 100 07/21/20 19:59 132 33 100 07/21/20 19:49 132 33 100 07/21/20 19:00 135 40 120/52 (74) 88 07/21/20 18:25 100 07/21/20 18:00 135 37 107/52 (70) 90 07/21/20 17:00 137 37 102/51 (68) 92 07/21/20 16:30 41 87/42 Endotracheal Tube 100 07/21/20 16:00 Mechanical Ventilator 07/21/20 16:00 99.2 07/21/20 16:00 38 88/44 Endotracheal Tube 100 07/21/20 16:00 100 07/21/20 16:00 143 07/21/20 16:00 142 39 96/46 (63) 90 07/21/20 15:11 159 36 100 07/21/20 15:00 29 94/52 Endotracheal Tube 100 07/21/20 15:00 166 32 104/44 (64) 83 Intake and Output 07/21/20 07/22/20 19:00 07:00 Intake Total 124.096 ml 880 ml Output Total 460 ml 480 ml Balance -335.904 ml 400 ml IV Total 124.096 ml 880 ml Output Urine Total 460 ml 480 ml # Bowel Movements 1 Current Medications Medications (Trade) Dose Ordered Sig/Yoselin Route PRN Reason Start Time Stop Time Status Last Admin Dose Admin Acetaminophen (Tylenol) 650 mg Q6H PRN ORAL For Pain 07/17/20 15:24 08/16/20 15:23 Acetaminophen (Tylenol) 650 mg Q6H PRN ORAL Temp >100.5 07/03/20 16:30 08/02/20 16:29 07/21/20 05:30 Acetaminophen (Tylenol) 650 mg Q6H PRN RECTAL Temp >100.5 07/04/20 20:45 08/03/20 20:44 07/19/20 20:24 Acetylcysteine (Mucomyst) 200 mg Q6HRT HHN 07/20/20 13:00 10/18/20 12:59 Ceftriaxone Sodium 1 gm/ Dextrose 55 ml @ 110 mls/hr Q24H IVPB 07/21/20 11:00 07/28/20 10:59 07/22/20 11:16 Chlorhexidine Gluconate (Kalie-Hex 2%) 1 applic DAILY@2000 TOPIC 07/13/20 20:00 10/11/20 19:59 07/21/20 19:56 Dextrose 1,000 ml @ 0 mls/hr Q24H PRN IV PN interrupted or unavailable 07/11/20 12:15 07/22/20 19:59 Dextrose (Dextrose 50%) 25 ml Q30M PRN IV Hypoglycemia 07/11/20 12:15 10/09/20 12:14 Dextrose (Dextrose 50%) 50 ml Q30M PRN IV Hypoglycemia 07/11/20 12:15 10/09/20 12:14 Diltiazem HCl 125 ml @ 0 mls/hr Q24H PRN IVPB . 07/22/20 08:38 07/23/20 08:37 07/22/20 09:13 Enoxaparin Sodium (Lovenox) 60 mg EVERY 12 HOURS SUBQ 07/20/20 21:00 10/18/20 20:59 Famotidine (Pepcid I.v.) 40 mg DAILY IVP 07/08/20 09:00 08/01/20 20:59 07/22/20 08:35 Fat Emulsion Intravenous 192 ml/Amino Acids/ Electrolytes/ Dextrose 1,920 ml @ 80 mls/hr Q24H IV 07/20/20 20:00 07/22/20 19:59 07/21/20 19:58 Gentamicin Sulfate (Garamycin 0.3% Opth Soln) 2 drop EVERY 6 HOURS BOTH EYES 07/18/20 11:00 07/25/20 10:59 07/22/20 11:33 Insulin Aspart (NovoLOG) BEFORE MEALS AND HS SUBQ 07/08/20 16:30 10/06/20 16:29 07/22/20 11:33 Insulin Detemir (Levemir) 20 units Q12HR SUBQ 07/20/20 09:00 10/13/20 20:59 07/22/20 09:11 Methylprednisolone Sodium Succinate (Solu-MEDROL) 40 mg EVERY 12 HOURS IVP 07/20/20 21:00 10/18/20 20:59 07/22/20 08:35 Norepinephrine Bitartrate 250 ml @ 0 mls/hr Q24H PRN IV . 07/22/20 07:25 07/25/20 07:24 07/22/20 11:17 Ondansetron HCl (Zofran) 4 mg Q6H PRN IVP Nausea & Vomiting 07/17/20 16:00 08/16/20 15:59 Laboratory Tests 07/21/20 14:50: Arterial Blood pH 7.094*L, Arterial Blood Partial Pressure CO2 62.5*H, Arterial Blood Partial Pressure O2 51.0L, Arterial Blood HCO3 18.7L, Arterial Blood Oxygen Saturation 75.1*L, Arterial Blood Base Excess -11.0*L, Roshan Test Positive 07/21/20 15:50: Prothrombin Time 12.3H, Prothromb Time International Ratio 1.1, Heparin-PF4 Antibody Screen [Pending] 07/21/20 17:43: Arterial Blood pH 7.273L, Arterial Blood Partial Pressure CO2 54.6H, Arterial Blood Partial Pressure O2 45.8*L, Arterial Blood HCO3 24.7, Arterial Blood Oxygen Saturation 79.9*L, Arterial Blood Base Excess -2.3L, Roshan Test Positive 07/21/20 19:47: Arterial Blood pH 7.242*L, Arterial Blood Partial Pressure CO2 61.5*H, Arterial Blood Partial Pressure O2 37.0*L, Arterial Blood HCO3 25.9, Arterial Blood Oxygen Saturation 67.0*L, Arterial Blood Base Excess -1.9, Roshan Test Positive 07/21/20 21:22: POC Whole Blood Glucose 227H 07/22/20 03:15: Urine Color Yellow, Urine Appearance Slightly cloudy, Urine pH 5, Urine Specific [place] 1.020, Urine Protein 2+H, Urine Glucose (UA) 3+H, Urine Ketones Negative, Urine Blood 3+H, Urine Nitrite Negative, Urine Bilirubin Negative, Urine Urobilinogen Normal, Urine Leukocyte Esterase 1+H, Urine RBC 5-10H, Urine WBC 2-4, Urine Squamous Epithelial Cells Occasional, Urine Amorphous Sediment FewH, Urine Bacteria ManyH 07/22/20 06:17: White Blood Count 3.1#L, Red Blood Count 2.54L, Hemoglobin 7.6L, Hematocrit 24.3L, Mean Corpuscular Volume 96, Mean Corpuscular Hemoglobin 29.8, Mean Corpuscular Hemoglobin Concent 31.1L, Red Cell Distribution Width 14.1, Platelet Count 24#L, Mean Platelet Volume , Neutrophils (%) (Auto) , Lymphocytes (%) (Auto) , Monocytes (%) (Auto) , Eosinophils (%) (Auto) , Basophils (%) (Auto) , Differential Total Cells Counted 100, Neutrophils % (Manual) 74, Lymphocytes % (Manual) 13L, Monocytes % (Manual) 4, Eosinophils % (Manual) 0, Basophils % (Manual) 0, Metamyelocytes % 1H, Myelocytes % 2H, Band Neutrophils 6, Platelet Estimate DecreasedL, Platelet Morphology Normal, Hypochromasia 1+, Anisocytosis 1+, Sodium Level 150H, Potassium Level 5.6H, Chloride Level 117H, Carbon Dioxide Level 23, Anion Gap 10, Blood Urea Nitrogen 96H, Creatinine 2.6#H, Estimat Glomerular Filtration Rate 26.2, Glucose Level 180H, Calcium Level 8.3L, Phosphorus Level 3.6, Magnesium Level 2.0, Total Bilirubin 0.2, Aspartate Amino Transf (AST/SGOT) 24, Alanine Aminotransferase (ALT/SGPT) 25, Alkaline Phosphatase 84, C-Reactive Protein, Quantitative 48.2H, Pro-B-Type Natriuretic Peptide 26217Q, Total Protein 4.3L, Albumin 0.7L, Globulin 3.6, Albumin/Globulin Ratio 0.2L, Triglycerides Level 190H 07/22/20 11:26: POC Whole Blood Glucose 200H Height (Feet): 5 Height (Inches): 4.00 Weight (Pounds): 146 General Appearance: no apparent distress, other - Febrile and hypotensive EENT: other - Intubated on ventilator Cardiovascular: tachycardia Respiratory/Chest: decreased breath sounds Abdomen: distended Jimmy Saul MD Jul 22, 2020 14:34
[2020-07-22] MEDS: D5 1/2NS 1,000 ML IV SCH (15:15)
--- NOTE | 2020-07-22 16:00 | NUR ---
NURSE NOTES: Pt turned and repositioned. Oral care done. Pt remains on Levophed @ 20mcg/min and Cardizem @ 15mg/hr.
--- NOTE | 2020-07-22 17:00 | NUR ---
NURSE NOTES: Pt fully cleaned and linens changed. No BM noted at this time. Ice packs remain in place to bring down pt's fever.
[2020-07-22] MEDS: Norepinephrine Bitartrate 8 MG in Sodium Chloride 492 ML IV PRN (18:07)
[2020-07-22] MEDS: fentaNYL 2500mcg/NS 250ml 250 ML IV SCH (18:45)
--- NOTE | 2020-07-22 19:11 | Cardiology Progress Note ---
Subjective DATE OF SERVICE: Jul 22, 2020 Worsening cardiovascular parameters due to hypotension, and cont'd hypoxia on 100% FIO2. Now on pressors, with episodes of AFib and RVR. Remains in ICU on full vent support; s/p code blue due to hypoxia and seizure on 07/19. Left foot cold and bluish toe #3 - arterial duplex 07/17 without proximal obstruction. Monitor: sinus rhythm with tachycardia and rare ectopics 2D Echo - normal LVEF, no signs RV strain, normal PA pressure of 30mm Hg CXR (07/20) persisting ALMA infiltrate and improved right basilar infiltrate. Objective Last 24 Hour Vital Signs Date Time Temp Pulse Resp B/P (MAP) Pulse Ox O2 Delivery O2 Flow Rate FiO2 07/22/20 18:07 86/55 07/22/20 18:00 81 37 120/59 (79) 99 07/22/20 17:00 108 32 105/51 (69) 89 07/22/20 16:00 99.9 117 36 93/58 (70) 91 07/22/20 16:00 116 07/22/20 16:00 100 07/22/20 16:00 Mechanical Ventilator 07/22/20 15:56 106 44 100 07/22/20 15:30 119 24 84/47 (59) 94 07/22/20 15:16 88/64 07/22/20 15:01 100.9 07/22/20 15:00 123 34 96/57 (70) 88 07/22/20 14:30 121 37 89/51 (64) 88 07/22/20 14:15 123 24 90/40 (57) 91 07/22/20 14:00 125 36 81/49 (60) 87 07/22/20 13:00 129 45 87/47 (60) 82 07/22/20 12:30 136 44 97/61 (73) 81 07/22/20 12:00 100.9 137 39 97/52 (67) 84 07/22/20 12:00 Mechanical Ventilator 07/22/20 12:00 100 07/22/20 11:45 123 39 100 07/22/20 11:30 141 43 109/74 (86) 84 07/22/20 11:17 99/48 07/22/20 11:00 149 38 103/61 (75) 86 07/22/20 10:00 157 42 111/48 (69) 87 07/22/20 09:45 157 40 106/43 (64) 83 07/22/20 09:30 170 38 86/37 (53) 83 07/22/20 09:15 171 41 92/51 (65) 83 07/22/20 09:00 185 41 119/62 (81) 89 07/22/20 08:45 184 40 103/64 (77) 91 07/22/20 08:30 178 39 117/55 (75) 89 07/22/20 08:00 99.5 177 40 124/52 (76) 87 07/22/20 08:00 180 07/22/20 08:00 100 07/22/20 08:00 Mechanical Ventilator 07/22/20 07:51 166 42 100 07/22/20 07:39 59/21 07/22/20 07:38 189 59/21 07/22/20 07:15 189 38 69/54 (59) 78 07/22/20 07:00 99.8 130 40 69/54 (59) 96 07/22/20 06:30 190 40 99/50 (66) 96 07/22/20 06:00 99.8 130 40 117/54 (75) 96 07/22/20 05:00 101.0 125 40 100/43 (62) 96 07/22/20 04:00 127 07/22/20 04:00 Mechanical Ventilator 07/22/20 04:00 102.0 130 40 117/54 (75) 96 07/22/20 04:00 100 07/22/20 03:15 131 42 100 07/22/20 03:00 130 40 117/54 (75) 96 07/22/20 02:00 131 40 101/49 (66) 96 07/22/20 01:00 130 40 108/64 (79) 96 07/22/20 00:00 Mechanical Ventilator 07/22/20 00:00 99.2 132 38 99/48 (65) 96 07/22/20 00:00 Mechanical Ventilator 07/22/20 00:00 100 07/22/20 00:00 100 07/22/20 00:00 130 07/21/20 23:00 132 39 98/48 (65) 96 07/21/20 22:56 132 40 100 07/21/20 22:00 135 40 77/40 (52) 89 07/21/20 21:00 137 39 98/53 (68) 88 07/21/20 20:00 Mechanical Ventilator 07/21/20 20:00 136 07/21/20 20:00 99.0 138 38 98/49 (65) 87 07/21/20 20:00 100 07/21/20 19:59 132 33 100 07/21/20 19:49 132 33 100 ROS: unchanged from 06/19/20 HEENT: Mechanically Ventilated, Thin secretions ET Tube, other - bipap RHYTHM: ST, Afib LUNGS: bilat. rhonchi and rales CARDIAC: normal rate, regular rhythm, normal S1 and S2 ABDOMEN: normal bowel sounds, soft, distended EXTREMITIES: normal range of motion, non-tender, trace edema, other - left toes 1,2,3 with gangrenous changes - especially evident in 3rd toe. Laboratory Tests Test 07/21/20 19:47 07/21/20 21:22 07/22/20 03:15 07/22/20 06:17 Arterial Blood pH 7.242 (7.350-7.450) Arterial Blood Partial Pressure CO2 61.5 mmHg (35.0-45.0) *H Arterial Blood Partial Pressure O2 37.0 mmHg (75.0-100.0) Arterial Blood HCO3 25.9 mmol/L (22.0-26.0) Arterial Blood Oxygen Saturation 67.0 % (95-100) *L Arterial Blood Base Excess -1.9 (-2-2) Roshan Test Positive POC Whole Blood Glucose 227 MG/DL (74-106) H Urine Color Yellow Urine Appearance Slightly cloudy Urine pH 5 (4.5-8.0) Urine Specific [place] 1.020 (1.005-1.035) Urine Protein 2+ (NEGATIVE) H Urine Glucose (UA) 3+ (NEGATIVE) H Urine Ketones Negative (NEGATIVE) Urine Blood 3+ (NEGATIVE) H Urine Nitrite Negative (NEGATIVE) Urine Bilirubin Negative (NEGATIVE) Urine Urobilinogen Normal MG/DL (0.0-1.0) Urine Leukocyte Esterase 1+ (NEGATIVE) H Urine RBC 5-10 /HPF (0 - 0) H Urine WBC 2-4 /HPF (0 - 0) Urine Squamous Epithelial Cells Occasional /LPF Urine Amorphous Sediment Few /LPF (NONE) H Urine Bacteria Many /HPF (NONE) H White Blood Count 3.1 K/UL (4.8-10.8) #L Red Blood Count 2.54 M/UL (4.70-6.10) L Hemoglobin 7.6 G/DL (14.2-18.0) L Hematocrit 24.3 % (42.0-52.0) L Mean Corpuscular Volume 96 FL (80-99) Mean Corpuscular Hemoglobin 29.8 PG (27.0-31.0) Mean Corpuscular Hemoglobin Concent 31.1 G/DL (32.0-36.0) L Red Cell Distribution Width 14.1 % (11.6-14.8) Platelet Count 24 K/UL (150-450) #L Mean Platelet Volume FL (6.5-10.1) Neutrophils (%) (Auto) % (45.0-75.0) Lymphocytes (%) (Auto) % (20.0-45.0) Monocytes (%) (Auto) % (1.0-10.0) Eosinophils (%) (Auto) % (0.0-3.0) Basophils (%) (Auto) % (0.0-2.0) Differential Total Cells Counted 100 Neutrophils % (Manual) 74 % (45-75) Lymphocytes % (Manual) 13 % (20-45) L Monocytes % (Manual) 4 % (1-10) Eosinophils % (Manual) 0 % (0-3) Basophils % (Manual) 0 % (0-2) Metamyelocytes % 1 % (0-0) H Myelocytes % 2 % (0-0) H Band Neutrophils 6 % (0-8) Platelet Estimate Decreased L Platelet Morphology Normal Hypochromasia 1+ Anisocytosis 1+ Sodium Level 150 MMOL/L (136-145) H Potassium Level 5.6 MMOL/L (3.5-5.1) H Chloride Level 117 MMOL/L (98-107) H Carbon Dioxide Level 23 MMOL/L (21-32) Anion Gap 10 mmol/L (5-15) Blood Urea Nitrogen 96 mg/dL (7-18) H Creatinine 2.6 MG/DL (0.55-1.30) #H Estimat Glomerular Filtration Rate 26.2 mL/min (>60) Glucose Level 180 MG/DL (74-106) H Calcium Level 8.3 MG/DL (8.5-10.1) L Phosphorus Level 3.6 MG/DL (2.5-4.9) Magnesium Level 2.0 MG/DL (1.8-2.4) Total Bilirubin 0.2 MG/DL (0.2-1.0) Aspartate Amino Transf (AST/SGOT) 24 U/L (15-37) Alanine Aminotransferase (ALT/SGPT) 25 U/L (12-78) Alkaline Phosphatase 84 U/L (46-116) C-Reactive Protein, Quantitative 48.2 mg/dL (0.00-0.90) H Pro-B-Type Natriuretic Peptide 02427 pg/mL (0-125) H Total Protein 4.3 G/DL (6.4-8.2) L Albumin 0.7 G/DL (3.4-5.0) L Globulin 3.6 g/dL Albumin/Globulin Ratio 0.2 (1.0-2.7) L Triglycerides Level 190 MG/DL (30-150) H Test 07/22/20 11:26 07/22/20 16:53 POC Whole Blood Glucose 200 MG/DL (74-106) H 93 MG/DL (74-106) Microbiology Date/Time Source Procedure Growth Status 07/21/20 15:50 Blood Blood Culture - Preliminary Resulted Assessment/Plan Assessment/Plan Shock Acute respiratory failure HC associated PNA COVID 19 PNA Hypoxia Ac pulmonary embolism Acute coronary syndrome/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 Sinus tachycardia Left LE ischemia Dehydration/hypernatremia Paroxysmal AFib with RVR Remains Critical and Guarded Continue pressor support. Vent support Free water replacement Full anticoagulation Antimicrobials Monitor for sustained atrial arrhythmias Replace lytes as needed Insulin cov'g by SS IV cardizem for rate control All discussed with ICU staff Aden Mejias MD Jul 22, 2020 19:11
--- NOTE | 2020-07-22 19:20 | NUR ---
NURSE NOTES: Pt report received from Re AGUIRRE. pt condition remains unchanged. pt is unresponsive neuro garcia, doctors are aware. pt is showing NSR on the monitor, no other cardiac abnormalities noted. pt is oral tube vented, sating 90% O2, no other changes in resp assessment. pt bed is low, locked, armed, call light within reach, bed rails up times 3. will follow plan of care.
--- NOTE | 2020-07-22 19:25 | NUR ---
NURSE HAND-OFF REPORT: Latest Vital Signs: Temperature 99.9 , Pulse 82 , B/P 131 /64 , Respiratory Rate 40 , O2 SAT 90 , Endotracheal Tube, FiO2 100% . Vital Sign Comment: EKG Rhythm: Sinus Rhythm Rhythm change?: N MD Notified?: MD Response: Latest Mcdowell Fall Score: 60 Fall Risk: High Risk Safety Measures: Call light Within Reach, Bed Alarm Zone 1, Side Rails Side Rails x3, Bed position Low and Locked. Fall Precautions: Door Sign Report given to TIMOTHY Mckinnon.
[2020-07-22] MEDS: Pantoprazole Inj IVP SCH (20:33)
[2020-07-22] MEDS: Dyna-Hex 2% Top Sol 2oz TOPIC SCH (20:33)
--- NOTE | 2020-07-22 21:48 | NUR ---
NURSE NOTES: 9 PM meds passed. no change in pts condition. pt remains NSR.
--- NOTE | 2020-07-22 23:30 | NUR ---
NURSE NOTES: assessed pt. no distress noted. vital signs stable.
[2020-07-23] VITALS (32 sets, daily range): BP systolic 101–150; BP diastolic 40–69
[2020-07-23] MEDS: Acetylcysteine 20% Soln 4ml HHN SCH ×2 (00:34→07:18)
[2020-07-23] MEDS: Norepinephrine Bitartrate 8 MG in Sodium Chloride 492 ML IV PRN ×3 (01:03→17:00)
--- NOTE | 2020-07-23 01:37 | NUR ---
NURSE NOTES: Levophed 8 MG IV drip bag replaced. no change in pts condition.
--- NOTE | 2020-07-23 03:23 | NUR ---
NURSE NOTES: pt remains resting in bed. pt cleaned and repositioned. vital signs stable.
[2020-07-23] MEDS: D5 1/2NS 1,000 ML IV SCH (04:48)
[2020-07-23 05:22] LABS: HEMATOCRIT 23.8 % (42.0-52.0); HEMOGLOBIN 7.6 G/DL (14.2-18.0); MEAN CORPUSCULAR VOLUME 94 FL (80-99); PLATELET COUNT 19 K/UL (150-450); RED BLOOD COUNT 2.51 M/UL (4.70-6.10); RED CELL DISTRIBUTION WIDTH 14.6 % (11.6-14.8); WHITE BLOOD COUNT 11.3 K/UL (4.8-10.8)
--- NOTE | 2020-07-23 05:30 | NUR ---
NURSE NOTES: Pt AM beds given. pts Blood sugar is 56 from finger stick check. apple juice with added sugar given.
[2020-07-23 05:38] LABS: ALBUMIN 0.8 G/DL (3.4-5.0); ALBUMIN/GLOBULIN RATIO 0.2 (1.0-2.7); BILIRUBIN,TOTAL 0.4 MG/DL (0.2-1.0); CALCIUM 8.2 MG/DL (8.5-10.1); CREATININE 3.2 MG/DL (0.55-1.30); PHOSPHORUS 5.9 MG/DL (2.5-4.9); POTASSIUM 5.7 MMOL/L (3.5-5.1)
[2020-07-23] MEDS: NovoLOG Insulin Flexpen SUBQ SCH ×4 (05:45→21:00)
[2020-07-23] MEDS: Gentamicin 0.3% Opth Soln 5ml BOTH EYES SCH ×3 (05:47→17:50)
--- NOTE | 2020-07-23 06:47 | Hematology/Onc Progress Note ---
Assessment/Plan Assessment/Plan Assessment and recs # Thrombocytopenia, severe is less likely related to HIT, more likely to underlying infection and covid 19++ --> meds reviewed is too far out from getting heparin to be HIT --> DIC panel has been ordered-->reviewed --> continue on abx for now --> peripheral smear reviewed, no blasts noted --> rule out consumptive process --> transfuse to plt >20k -> plt 206->59-->19 --> okay for LOVENOX best option we have at this time, trend plts closely --> also less likely hit, venous duplex is neg # RLL PE with R heart strain. --> was before heparin-->lovenox sq --> for now continue lovenox if no bleeding # Anemia of chronic disease --> hgb 10->7.6 --> no hemolysis is seen --> anemia panel is noted # COVID19+++ with Hypoxia --> s/p intubation # Pneumonia due to COVID-19 virus --> as per id vanc/ctx # NSTEMi --> per cards # Dysphagia s/p ogt # Dvt ppx lovenox Appreciate consultation and lexei Rn Subjective Allergies: Coded Allergies: No Known Allergies (Unverified , 06/18/20) Subjective 07/22 remains on vent, plt 59, hgb low, hit ab test pending, on lovenox sq 07/23 remains on levo, plts are lower, remains on lovenox sq bid Objective Objective Current Medications Medications (Trade) Dose Ordered Sig/Yoselin Route PRN Reason Start Time Stop Time Status Last Admin Dose Admin Acetaminophen (Tylenol) 650 mg Q6H PRN ORAL For Pain 07/17/20 15:24 08/16/20 15:23 Acetaminophen (Tylenol) 650 mg Q6H PRN ORAL Temp >100.5 07/03/20 16:30 08/02/20 16:29 07/22/20 14:31 Acetaminophen (Tylenol) 650 mg Q6H PRN RECTAL Temp >100.5 07/04/20 20:45 08/03/20 20:44 07/19/20 20:24 Acetylcysteine (Mucomyst) 200 mg Q6HRT HHN 07/20/20 13:00 10/18/20 12:59 07/22/20 19:01 Ceftriaxone Sodium 1 gm/ Dextrose 55 ml @ 110 mls/hr Q24H IVPB 07/21/20 11:00 07/28/20 10:59 07/22/20 11:16 Chlorhexidine Gluconate (Kalie-Hex 2%) 1 applic DAILY@2000 TOPIC 07/13/20 20:00 10/11/20 19:59 07/22/20 20:33 Dextrose (Dextrose 50%) 25 ml Q30M PRN IV Hypoglycemia 07/11/20 12:15 10/09/20 12:14 Dextrose (Dextrose 50%) 50 ml Q30M PRN IV Hypoglycemia 07/11/20 12:15 10/09/20 12:14 Dextrose/Sodium Chloride 1,000 ml @ 75 mls/hr [id number] IV 07/22/20 14:30 08/21/20 14:29 07/23/20 04:48 Enoxaparin Sodium (Lovenox) 60 mg EVERY 12 HOURS SUBQ 07/20/20 21:00 10/18/20 20:59 Fentanyl Citrate 250 ml @ 1 mls/hr Q24H IV 07/22/20 18:45 07/24/20 18:44 Gentamicin Sulfate (Garamycin 0.3% Opth Soln) 2 drop EVERY 6 HOURS BOTH EYES 07/18/20 11:00 07/25/20 10:59 07/23/20 05:47 Insulin Aspart (NovoLOG) BEFORE MEALS AND HS SUBQ 07/08/20 16:30 10/06/20 16:29 07/22/20 11:33 Methylprednisolone Sodium Succinate (Solu-MEDROL) 40 mg EVERY 12 HOURS IVP 07/20/20 21:00 10/18/20 20:59 07/22/20 20:33 Norepinephrine Bitartrate 8 mg/ Sodium Chloride 500 ml @ 0 mls/hr Q24H PRN IV . 07/22/20 17:00 07/25/20 16:59 07/23/20 01:03 Ondansetron HCl (Zofran) 4 mg Q6H PRN IVP Nausea & Vomiting 07/17/20 16:00 08/16/20 15:59 Pantoprazole (Protonix) 40 mg EVERY 12 HOURS IVP 07/22/20 21:00 08/21/20 20:59 07/22/20 20:33 Last 24 Hour Vital Signs Date Time Temp Pulse Resp B/P (MAP) Pulse Ox O2 Delivery O2 Flow Rate FiO2 07/23/20 06:00 146/59 07/23/20 06:00 89 33 146/59 (88) 96 07/23/20 05:00 133/69 07/23/20 05:00 87 34 133/69 (90) 97 07/23/20 04:00 84 07/23/20 04:00 100 07/23/20 04:00 142/61 07/23/20 04:00 98.9 89 32 142/61 (88) 96 07/23/20 04:00 Mechanical Ventilator 07/23/20 03:46 83 34 100 07/23/20 03:00 86 35 141/55 (83) 97 07/23/20 03:00 142/55 07/23/20 02:00 87 35 135/68 (90) 98 07/23/20 02:00 135/68 07/23/20 01:03 102/53 07/23/20 01:00 89 33 102/53 (69) 97 07/23/20 00:00 82 07/23/20 00:00 99.1 83 33 138/58 (84) 98 07/23/20 00:00 Mechanical Ventilator 07/23/20 00:00 100 07/23/20 00:00 138/58 07/22/20 23:35 80 36 100 07/22/20 23:00 82 31 123/59 (80) 99 07/22/20 23:00 123/59 07/22/20 22:00 82 35 132/59 (83) 99 07/22/20 22:00 132/59 07/22/20 21:00 113/54 07/22/20 21:00 78 35 113/54 (73) 98 07/22/20 20:00 154 07/22/20 20:00 121/59 07/22/20 20:00 99.2 80 36 122/58 (79) 99 07/22/20 20:00 Mechanical Ventilator 07/22/20 20:00 100 07/22/20 19:31 81 37 100 Mechanical Ventilator 100 83 38 100 07/22/20 19:15 82 40 131/64 (86) 90 07/22/20 19:00 82 38 131/64 (86) 94 07/22/20 19:00 131/64 07/22/20 18:45 28 122/58 Endotracheal Tube 100 07/22/20 18:07 86/55 07/22/20 18:00 81 37 120/59 (79) 99 07/22/20 17:00 108 32 105/51 (69) 89 07/22/20 16:00 99.9 117 36 93/58 (70) 91 07/22/20 16:00 116 07/22/20 16:00 100 07/22/20 16:00 Mechanical Ventilator 07/22/20 15:56 106 44 100 07/22/20 15:30 119 24 84/47 (59) 94 07/22/20 15:16 88/64 07/22/20 15:01 100.9 07/22/20 15:00 123 34 96/57 (70) 88 07/22/20 14:30 121 37 89/51 (64) 88 07/22/20 14:15 123 24 90/40 (57) 91 07/22/20 14:00 125 36 81/49 (60) 87 07/22/20 13:00 129 45 87/47 (60) 82 07/22/20 12:30 136 44 97/61 (73) 81 07/22/20 12:00 100.9 137 39 97/52 (67) 84 07/22/20 12:00 Mechanical Ventilator 07/22/20 12:00 100 07/22/20 11:45 123 39 100 07/22/20 11:30 141 43 109/74 (86) 84 07/22/20 11:17 99/48 07/22/20 11:00 149 38 103/61 (75) 86 07/22/20 10:00 157 42 111/48 (69) 87 07/22/20 09:45 157 40 106/43 (64) 83 07/22/20 09:30 170 38 86/37 (53) 83 07/22/20 09:15 171 41 92/51 (65) 83 07/22/20 09:00 185 41 119/62 (81) 89 07/22/20 08:45 184 40 103/64 (77) 91 07/22/20 08:30 178 39 117/55 (75) 89 07/22/20 08:00 99.5 177 40 124/52 (76) 87 07/22/20 08:00 180 07/22/20 08:00 100 07/22/20 08:00 Mechanical Ventilator 07/22/20 07:51 166 42 100 07/22/20 07:39 59/21 07/22/20 07:38 189 59/21 07/22/20 07:15 189 38 69/54 (59) 78 07/22/20 07:00 99.8 130 40 69/54 (59) 96 07/22/20 06:30 190 40 99/50 (66) 96 07/22/20 06:00 99.8 130 40 117/54 (75) 96 07/22/20 05:00 101.0 125 40 100/43 (62) 96 07/22/20 04:00 127 07/22/20 04:00 Mechanical Ventilator 07/22/20 04:00 102.0 130 40 117/54 (75) 96 07/22/20 04:00 100 07/22/20 03:15 131 42 100 07/22/20 03:00 130 40 117/54 (75) 96 07/22/20 02:00 131 40 101/49 (66) 96 07/22/20 01:00 130 40 108/64 (79) 96 07/22/20 00:00 Mechanical Ventilator 07/22/20 00:00 99.2 132 38 99/48 (65) 96 07/22/20 00:00 Mechanical Ventilator 07/22/20 00:00 100 07/22/20 00:00 100 07/22/20 00:00 130 07/21/20 23:00 132 39 98/48 (65) 96 07/21/20 22:56 132 40 100 07/21/20 22:00 135 40 77/40 (52) 89 07/21/20 21:00 137 39 98/53 (68) 88 07/21/20 20:00 Mechanical Ventilator 07/21/20 20:00 136 07/21/20 20:00 99.0 138 38 98/49 (65) 87 07/21/20 20:00 100 07/21/20 19:59 132 33 100 07/21/20 19:49 132 33 100 07/21/20 19:00 135 40 120/52 (74) 88 07/21/20 18:25 100 07/21/20 18:00 135 37 107/52 (70) 90 07/21/20 17:00 137 37 102/51 (68) 92 07/21/20 16:30 41 87/42 Endotracheal Tube 100 07/21/20 16:00 Mechanical Ventilator 07/21/20 16:00 99.2 07/21/20 16:00 38 88/44 Endotracheal Tube 100 07/21/20 16:00 100 07/21/20 16:00 143 07/21/20 16:00 142 39 96/46 (63) 90 07/21/20 15:11 159 36 100 07/21/20 15:00 29 94/52 Endotracheal Tube 100 07/21/20 15:00 166 32 104/44 (64) 83 07/21/20 14:30 165 35 100 07/21/20 14:15 166 31 100 07/21/20 14:00 34 108/62 Endotracheal Tube 100 07/21/20 14:00 140 35 119/63 (81) 75 07/21/20 13:50 174 35 100 07/21/20 13:46 33 160/123 100 07/21/20 13:00 31 144/75 Endotracheal Tube 100 07/21/20 13:00 131 31 144/92 (109) 85 07/21/20 12:00 120 07/21/20 12:00 31 135/64 Endotracheal Tube 100 07/21/20 12:00 100 07/21/20 12:00 99.1 07/21/20 12:00 121 31 136/61 (86) 96 07/21/20 11:00 120 31 148/63 (91) 97 07/21/20 11:00 30 141/68 Endotracheal Tube 100 07/21/20 10:50 115 30 100 07/21/20 10:00 116 30 137/62 (87) 97 07/21/20 10:00 31 127/78 Endotracheal Tube 100 07/21/20 09:00 33 146/77 Endotracheal Tube 33 07/21/20 09:00 118 32 131/74 (93) 99 07/21/20 08:00 109 07/21/20 08:00 100 07/21/20 08:00 31 127/63 Endotracheal Tube 100 07/21/20 08:00 98.8 111 32 125/72 (89) 100 07/21/20 08:00 Mechanical Ventilator 07/21/20 07:17 110 32 100 07/21/20 07:00 34 109/67 Mechanical Ventilator 07/21/20 07:00 115 109/67 (81) Intake and Output 07/22/20 07/23/20 19:00 07:00 Intake Total 2030.75 ml 1575 ml Output Total 215 ml 210 ml Balance 1815.75 ml 1365 ml IV Total 1950.75 ml 1575 ml Other 80 ml Output Urine Total 215 ml 210 ml Labs Test 07/20/20 08:19 07/20/20 11:25 07/20/20 15:15 07/20/20 16:52 Arterial Blood pH 7.294 (7.350-7.450) Arterial Blood Partial Pressure CO2 53.5 mmHg (35.0-45.0) Arterial Blood Partial Pressure O2 79.1 mmHg (75.0-100.0) Arterial Blood HCO3 25.4 mmol/L (22.0-26.0) Arterial Blood Oxygen Saturation 94.0 % (95-100) Arterial Blood Base Excess -1.6 (-2-2) Roshan Test Positive White Blood Count 12.1 K/UL (4.8-10.8) 13.7 K/UL (4.8-10.8) Red Blood Count 3.24 M/UL (4.70-6.10) 3.40 M/UL (4.70-6.10) Hemoglobin 9.9 G/DL (14.2-18.0) 10.2 G/DL (14.2-18.0) Hematocrit 30.3 % (42.0-52.0) 32.3 % (42.0-52.0) Mean Corpuscular Volume 93 FL (80-99) 95 FL (80-99) Mean Corpuscular Hemoglobin 30.6 PG (27.0-31.0) 30.0 PG (27.0-31.0) Mean Corpuscular Hemoglobin Concent 32.8 G/DL (32.0-36.0) 31.6 G/DL (32.0-36.0) Red Cell Distribution Width 13.4 % (11.6-14.8) 13.6 % (11.6-14.8) Platelet Count 51 K/UL (150-450) 52 K/UL (150-450) Mean Platelet Volume 13.8 FL (6.5-10.1) 11.8 FL (6.5-10.1) Neutrophils (%) (Auto) % (45.0-75.0) % (45.0-75.0) Lymphocytes (%) (Auto) % (20.0-45.0) % (20.0-45.0) Monocytes (%) (Auto) % (1.0-10.0) % (1.0-10.0) Eosinophils (%) (Auto) % (0.0-3.0) % (0.0-3.0) Basophils (%) (Auto) % (0.0-2.0) % (0.0-2.0) Differential Total Cells Counted 100 100 Neutrophils % (Manual) 65 % (45-75) 55 % (45-75) Lymphocytes % (Manual) 6 % (20-45) 1 % (20-45) Monocytes % (Manual) 3 % (1-10) 1 % (1-10) Eosinophils % (Manual) 0 % (0-3) 0 % (0-3) Basophils % (Manual) 0 % (0-2) 0 % (0-2) Band Neutrophils 26 % (0-8) 43 % (0-8) Platelet Estimate Decreased Decreased Platelet Morphology Normal Normal Hypochromasia 1+ 1+ Test 07/20/20 18:00 07/21/20 02:42 07/21/20 04:00 07/21/20 13:53 Activated Partial Thromboplast Time 42 SEC (23-33) POC Whole Blood Glucose 245 MG/DL (74-106) White Blood Count 9.6 K/UL (4.8-10.8) Red Blood Count 3.43 M/UL (4.70-6.10) Hemoglobin 10.4 G/DL (14.2-18.0) Hematocrit 33.1 % (42.0-52.0) Mean Corpuscular Volume 97 FL (80-99) Mean Corpuscular Hemoglobin 30.5 PG (27.0-31.0) Mean Corpuscular Hemoglobin Concent 31.6 G/DL (32.0-36.0) Red Cell Distribution Width 13.9 % (11.6-14.8) Platelet Count 59 K/UL (150-450) Mean Platelet Volume 11.2 FL (6.5-10.1) Neutrophils (%) (Auto) % (45.0-75.0) Lymphocytes (%) (Auto) % (20.0-45.0) Monocytes (%) (Auto) % (1.0-10.0) Eosinophils (%) (Auto) % (0.0-3.0) Basophils (%) (Auto) % (0.0-2.0) Differential Total Cells Counted 100 Neutrophils % (Manual) 61 % (45-75) Lymphocytes % (Manual) 2 % (20-45) Monocytes % (Manual) 1 % (1-10) Eosinophils % (Manual) 0 % (0-3) Basophils % (Manual) 0 % (0-2) Band Neutrophils 36 % (0-8) Platelet Estimate Decreased Platelet Morphology Normal Hypochromasia 1+ Sodium Level 142 MMOL/L (136-145) Potassium Level 4.6 MMOL/L (3.5-5.1) Chloride Level 110 MMOL/L (98-107) Carbon Dioxide Level 32 MMOL/L (21-32) Anion Gap 0 mmol/L (5-15) Blood Urea Nitrogen 47 mg/dL (7-18) Creatinine 1.0 MG/DL (0.55-1.30) Estimat Glomerular Filtration Rate > 60 mL/min (>60) Glucose Level 259 MG/DL (74-106) Uric Acid 1.8 MG/DL (2.6-7.2) Calcium Level 8.9 MG/DL (8.5-10.1) Phosphorus Level 2.9 MG/DL (2.5-4.9) Magnesium Level 2.0 MG/DL (1.8-2.4) Total Bilirubin 0.3 MG/DL (0.2-1.0) Aspartate Amino Transf (AST/SGOT) 16 U/L (15-37) Alanine Aminotransferase (ALT/SGPT) 35 U/L (12-78) Alkaline Phosphatase 133 U/L (46-116) Lactate Dehydrogenase 447 U/L (81-234) C-Reactive Protein, Quantitative 58.1 mg/dL (0.00-0.90) Pro-B-Type Natriuretic Peptide 946 pg/mL (0-125) Total Protein 5.8 G/DL (6.4-8.2) Albumin 1.1 G/DL (3.4-5.0) Globulin 4.7 g/dL Albumin/Globulin Ratio 0.2 (1.0-2.7) Triglycerides Level 213 MG/DL (30-150) Arterial Blood pH 7.306 (7.350-7.450) Arterial Blood Partial Pressure CO2 50.6 mmHg (35.0-45.0) Arterial Blood Partial Pressure O2 38.7 mmHg (75.0-100.0) Arterial Blood HCO3 24.7 mmol/L (22.0-26.0) Arterial Blood Oxygen Saturation 73.8 % (95-100) Arterial Blood Base Excess -1.9 (-2-2) Roshan Test Positive Test 07/21/20 14:50 07/21/20 15:50 07/21/20 17:43 07/21/20 19:47 Arterial Blood pH 7.094 (7.350-7.450) 7.273 (7.350-7.450) 7.242 (7.350-7.450) Arterial Blood Partial Pressure CO2 62.5 mmHg (35.0-45.0) 54.6 mmHg (35.0-45.0) 61.5 mmHg (35.0-45.0) Arterial Blood Partial Pressure O2 51.0 mmHg (75.0-100.0) 45.8 mmHg (75.0-100.0) 37.0 mmHg (75.0-100.0) Arterial Blood HCO3 18.7 mmol/L (22.0-26.0) 24.7 mmol/L (22.0-26.0) 25.9 mmol/L (22.0-26.0) Arterial Blood Oxygen Saturation 75.1 % (95-100) 79.9 % (95-100) 67.0 % (95-100) Arterial Blood Base Excess -11.0 (-2-2) -2.3 (-2-2) -1.9 (-2-2) Roshan Test Positive Positive Positive Prothrombin Time 12.3 SEC (9.30-11.50) Prothromb Time International Ratio 1.1 (0.9-1.1) Test 07/21/20 21:22 07/22/20 03:15 07/22/20 06:17 07/22/20 11:26 POC Whole Blood Glucose 227 MG/DL (74-106) 200 MG/DL (74-106) Urine Color Yellow Urine Appearance Slightly cloudy Urine pH 5 (4.5-8.0) Urine Specific [place] 1.020 (1.005-1.035) Urine Protein 2+ (NEGATIVE) Urine Glucose (UA) 3+ (NEGATIVE) Urine Ketones Negative (NEGATIVE) Urine Blood 3+ (NEGATIVE) Urine Nitrite Negative (NEGATIVE) Urine Bilirubin Negative (NEGATIVE) Urine Urobilinogen Normal MG/DL (0.0-1.0) Urine Leukocyte Esterase 1+ (NEGATIVE) Urine RBC 5-10 /HPF (0 - 0) Urine WBC 2-4 /HPF (0 - 0) Urine Squamous Epithelial Cells Occasional /LPF Urine Amorphous Sediment Few /LPF (NONE) Urine Bacteria Many /HPF (NONE) White Blood Count 3.1 K/UL (4.8-10.8) Red Blood Count 2.54 M/UL (4.70-6.10) Hemoglobin 7.6 G/DL (14.2-18.0) Hematocrit 24.3 % (42.0-52.0) Mean Corpuscular Volume 96 FL (80-99) Mean Corpuscular Hemoglobin 29.8 PG (27.0-31.0) Mean Corpuscular Hemoglobin Concent 31.1 G/DL (32.0-36.0) Red Cell Distribution Width 14.1 % (11.6-14.8) Platelet Count 24 K/UL (150-450) Mean Platelet Volume FL (6.5-10.1) Neutrophils (%) (Auto) % (45.0-75.0) Lymphocytes (%) (Auto) % (20.0-45.0) Monocytes (%) (Auto) % (1.0-10.0) Eosinophils (%) (Auto) % (0.0-3.0) Basophils (%) (Auto) % (0.0-2.0) Differential Total Cells Counted 100 Neutrophils % (Manual) 74 % (45-75) Lymphocytes % (Manual) 13 % (20-45) Monocytes % (Manual) 4 % (1-10) Eosinophils % (Manual) 0 % (0-3) Basophils % (Manual) 0 % (0-2) Metamyelocytes % 1 % (0-0) Myelocytes % 2 % (0-0) Band Neutrophils 6 % (0-8) Platelet Estimate Decreased Platelet Morphology Normal Hypochromasia 1+ Anisocytosis 1+ Sodium Level 150 MMOL/L (136-145) Potassium Level 5.6 MMOL/L (3.5-5.1) Chloride Level 117 MMOL/L (98-107) Carbon Dioxide Level 23 MMOL/L (21-32) Anion Gap 10 mmol/L (5-15) Blood Urea Nitrogen 96 mg/dL (7-18) Creatinine 2.6 MG/DL (0.55-1.30) Estimat Glomerular Filtration Rate 26.2 mL/min (>60) Glucose Level 180 MG/DL (74-106) Calcium Level 8.3 MG/DL (8.5-10.1) Phosphorus Level 3.6 MG/DL (2.5-4.9) Magnesium Level 2.0 MG/DL (1.8-2.4) Total Bilirubin 0.2 MG/DL (0.2-1.0) Aspartate Amino Transf (AST/SGOT) 24 U/L (15-37) Alanine Aminotransferase (ALT/SGPT) 25 U/L (12-78) Alkaline Phosphatase 84 U/L (46-116) C-Reactive Protein, Quantitative 48.2 mg/dL (0.00-0.90) Pro-B-Type Natriuretic Peptide 09449 pg/mL (0-125) Total Protein 4.3 G/DL (6.4-8.2) Albumin 0.7 G/DL (3.4-5.0) Globulin 3.6 g/dL Albumin/Globulin Ratio 0.2 (1.0-2.7) Triglycerides Level 190 MG/DL (30-150) Test 07/22/20 16:53 07/22/20 20:36 07/23/20 03:45 07/23/20 05:43 POC Whole Blood Glucose 93 MG/DL (74-106) 75 MG/DL (74-106) 56 MG/DL (74-106) White Blood Count 11.3 K/UL (4.8-10.8) Red Blood Count 2.51 M/UL (4.70-6.10) Hemoglobin 7.6 G/DL (14.2-18.0) Hematocrit 23.8 % (42.0-52.0) Mean Corpuscular Volume 94 FL (80-99) Mean Corpuscular Hemoglobin 30.1 PG (27.0-31.0) Mean Corpuscular Hemoglobin Concent 31.8 G/DL (32.0-36.0) Red Cell Distribution Width 14.6 % (11.6-14.8) Platelet Count 19 K/UL (150-450) Mean Platelet Volume FL (6.5-10.1) Neutrophils (%) (Auto) % (45.0-75.0) Lymphocytes (%) (Auto) % (20.0-45.0) Monocytes (%) (Auto) % (1.0-10.0) Eosinophils (%) (Auto) % (0.0-3.0) Basophils (%) (Auto) % (0.0-2.0) Sodium Level 149 MMOL/L (136-145) Potassium Level 5.7 MMOL/L (3.5-5.1) Chloride Level 116 MMOL/L (98-107) Carbon Dioxide Level 20 MMOL/L (21-32) Anion Gap 13 mmol/L (5-15) Blood Urea Nitrogen 121 mg/dL (7-18) Creatinine 3.2 MG/DL (0.55-1.30) Estimat Glomerular Filtration Rate 20.6 mL/min (>60) Glucose Level 61 MG/DL (74-106) Uric Acid 5.8 MG/DL (2.6-7.2) Calcium Level 8.2 MG/DL (8.5-10.1) Phosphorus Level 5.9 MG/DL (2.5-4.9) Magnesium Level 2.1 MG/DL (1.8-2.4) Total Bilirubin 0.4 MG/DL (0.2-1.0) Aspartate Amino Transf (AST/SGOT) 59 U/L (15-37) Alanine Aminotransferase (ALT/SGPT) 50 U/L (12-78) Alkaline Phosphatase 97 U/L (46-116) Troponin I 0.114 ng/mL (0.000-0.056) C-Reactive Protein, Quantitative 56.3 mg/dL (0.00-0.90) Pro-B-Type Natriuretic Peptide 41051 pg/mL (0-125) Total Protein 5.0 G/DL (6.4-8.2) Albumin 0.8 G/DL (3.4-5.0) Globulin 4.2 g/dL Albumin/Globulin Ratio 0.2 (1.0-2.7) Height (Feet): 5 Height (Inches): 4.00 Weight (Pounds): 146 Objective Sp02 EP Interpretation: reviewed General Appearance: alert, severe distress +++ogt Head: normocephalic ENT: moist mucus membranes Neck: supple, no meningismus Respiratory: no wheezing, respiratory distress +++vent Cardiovascular: no edema, tachycardia Gastrointestinal: normal inspection, normal bowel sounds, non tender, no mass, non-distended Musculoskeletal: back normal, normal range of motion, gait/station normal Neurologic: alert, oriented x3 Aleksander Doe MD Jul 23, 2020 06:47
--- NOTE | 2020-07-23 06:51 | NUR ---
NURSE NOTES: spoke to Doctor Taisha Arellano reviewed pts Lab values with an emphasis to Hct, Hgb and Plts. doctor ordered 1 U PRBC and 1 U Plateletpheresis.
--- NOTE | 2020-07-23 07:18 | NUR ---
RESPIRATORY NOTE: PT received on AC/VC 25, 400, 100%, +14. Alarms are on and audible. Ventilator circuit is secure and out of the way. Pt has high RR that is shallow and irregular but SpO2 and HR are WNL. TIMOTHY Welch is aware. Will continue to closely monitor.
--- NOTE | 2020-07-23 07:18 | NUR ---
NURSE NOTES: Report received from TIMOTHY Mckinnon. Pt is Orally intubated; ETT 8.0, 23cm @ the lip line. Vent settings; AC 25, TV 400, FiO2 100%, PEEP 14; O2sat 81%. Tachypneic with RR in the 40's- Will start Fentanyl drip. NSR quality assurance monitor. OGT in place; currently NPO. Dutton catheter in place and draining. AFSANEH PICC running Levophed @ 20mcg/min and D5 1/2 NS @ 75mL/hr. PIV Lt and Rt hand #22g both saline locked. Pt received and maintained on BL soft wrist restraints for safety, per MD order. Bed locked and in lowest position. Will resume plan of care.
--- NOTE | 2020-07-23 07:19 | NUR ---
NURSE HAND-OFF REPORT: Latest Vital Signs: Temperature 98.9 , Pulse 92 , B/P 134 /61 , Respiratory Rate 35 , O2 SAT 96 , Endotracheal Tube, O2 Flow Rate . Vital Sign Comment: [Stable] EKG Rhythm: Sinus Rhythm Rhythm change?: N Notified?: Y -Dr Leung covering for Dr. Kailee MAY Response: Latest Mcdowell Fall Score: 60 Fall Risk: High Risk Safety Measures: Call light Within Reach, Bed Alarm Zone 1, Side Rails Side Rails x3, Bed position Low and Locked. Fall Precautions: Door Sign Report given to [Re RN].
[2020-07-23] MEDS: Pantoprazole Inj IVP SCH ×2 (08:22→21:00)
[2020-07-23] MEDS: Enoxaparin 60mg Inj SUBQ SCH ×2 (08:22→21:00)
[2020-07-23] MEDS: Solu-MEDROL 40mg Inj IVP SCH ×2 (08:22→21:03)
[2020-07-23] MEDS: fentaNYL 2500mcg/NS 250ml 250 ML IV SCH (08:26)
--- NOTE | 2020-07-23 08:36 | NUR ---
NURSE NOTES: Dr Dudley at bedside assessing pt. Updated him on pt's current condition.
--- NOTE | 2020-07-23 08:40 | Infectious Diseases Prog Note ---
Assessment/Plan Assessment/Plan IMPRESSION: 1. leukocytosis 2. COVID-19 pneumonia. 3. Pulmonary emboli. 4. Hypoxic respiratory failure, 5. Elevated troponin. 6. Fever 7. Left foot gangrene 8. Anemia RECOMMENDATION: Finished Remdesivir course Continue Solumedrol tapering Continue Rocephin Prognosis is Poor, patient is DNR Subjective ROS Limited/Unobtainable: Yes Neurologic: Reports: other - sedated, on restraint Allergies: Coded Allergies: No Known Allergies (Unverified , 06/18/20) Objective Last 24 Hour Vital Signs Date Time Temp Pulse Resp B/P (MAP) Pulse Ox O2 Delivery O2 Flow Rate FiO2 07/23/20 08:26 40 153/59 Mechanical Ventilator 100 07/23/20 08:21 153/59 07/23/20 07:00 92 35 144/58 (86) 96 07/23/20 07:00 134/61 07/23/20 06:00 146/59 07/23/20 06:00 89 33 146/59 (88) 96 07/23/20 05:00 133/69 07/23/20 05:00 87 34 133/69 (90) 97 07/23/20 04:00 84 07/23/20 04:00 100 07/23/20 04:00 142/61 07/23/20 04:00 98.9 89 32 142/61 (88) 96 07/23/20 04:00 Mechanical Ventilator 07/23/20 03:46 83 34 100 07/23/20 03:00 86 35 141/55 (83) 97 07/23/20 03:00 142/55 07/23/20 02:00 87 35 135/68 (90) 98 07/23/20 02:00 135/68 07/23/20 01:03 102/53 07/23/20 01:00 89 33 102/53 (69) 97 07/23/20 00:00 82 07/23/20 00:00 99.1 83 33 138/58 (84) 98 07/23/20 00:00 Mechanical Ventilator 07/23/20 00:00 100 07/23/20 00:00 138/58 07/22/20 23:35 80 36 100 07/22/20 23:00 82 31 123/59 (80) 99 07/22/20 23:00 123/59 07/22/20 22:00 82 35 132/59 (83) 99 07/22/20 22:00 132/59 07/22/20 21:00 113/54 07/22/20 21:00 78 35 113/54 (73) 98 07/22/20 20:00 154 07/22/20 20:00 121/59 07/22/20 20:00 99.2 80 36 122/58 (79) 99 07/22/20 20:00 Mechanical Ventilator 07/22/20 20:00 100 07/22/20 19:31 81 37 100 Mechanical Ventilator 100 83 38 100 07/22/20 19:15 82 40 131/64 (86) 90 07/22/20 19:00 82 38 131/64 (86) 94 07/22/20 19:00 131/64 07/22/20 18:45 28 122/58 Endotracheal Tube 100 07/22/20 18:07 86/55 07/22/20 18:00 81 37 120/59 (79) 99 07/22/20 17:00 108 32 105/51 (69) 89 07/22/20 16:00 99.9 117 36 93/58 (70) 91 07/22/20 16:00 116 07/22/20 16:00 100 07/22/20 16:00 Mechanical Ventilator 07/22/20 15:56 106 44 100 07/22/20 15:30 119 24 84/47 (59) 94 07/22/20 15:16 88/64 07/22/20 15:01 100.9 07/22/20 15:00 123 34 96/57 (70) 88 07/22/20 14:30 121 37 89/51 (64) 88 07/22/20 14:15 123 24 90/40 (57) 91 07/22/20 14:00 125 36 81/49 (60) 87 07/22/20 13:00 129 45 87/47 (60) 82 07/22/20 12:30 136 44 97/61 (73) 81 07/22/20 12:00 100.9 137 39 97/52 (67) 84 07/22/20 12:00 Mechanical Ventilator 07/22/20 12:00 100 07/22/20 11:45 123 39 100 07/22/20 11:30 141 43 109/74 (86) 84 1/27/21 11:17 99/48 07/22/20 11:00 149 38 103/61 (75) 86 07/22/20 10:00 157 42 111/48 (69) 87 07/22/20 09:45 157 40 106/43 (64) 83 07/22/20 09:30 170 38 86/37 (53) 83 07/22/20 09:15 171 41 92/51 (65) 83 07/22/20 09:00 185 41 119/62 (81) 89 07/22/20 08:45 184 40 103/64 (77) 91 Height (Feet): 5 Height (Inches): 4.00 Weight (Pounds): 146 HEENT: other - orally intubated Respiratory/Chest: other - on ventilator, XON9=875% Cardiovascular: normal rate, other - left arm PICC line Abdomen: soft, non tender, other - tube feeding Extremities: other - left front foot discoloration Neurologic/Psychiatric: other - sedated Microbiology Date/Time Source Procedure Growth Status 07/21/20 15:50 Blood Blood Culture - Preliminary Resulted Laboratory Tests Test 07/22/20 11:26 07/22/20 16:53 07/22/20 20:36 07/23/20 03:45 POC Whole Blood Glucose 200 MG/DL (74-106) H 93 MG/DL (74-106) 75 MG/DL (74-106) White Blood Count 11.3 K/UL (4.8-10.8) #H Red Blood Count 2.51 M/UL (4.70-6.10) L Hemoglobin 7.6 G/DL (14.2-18.0) L Hematocrit 23.8 % (42.0-52.0) L Mean Corpuscular Volume 94 FL (80-99) Mean Corpuscular Hemoglobin 30.1 PG (27.0-31.0) Mean Corpuscular Hemoglobin Concent 31.8 G/DL (32.0-36.0) L Red Cell Distribution Width 14.6 % (11.6-14.8) Platelet Count 19 K/UL (150-450) L Mean Platelet Volume FL (6.5-10.1) Neutrophils (%) (Auto) % (45.0-75.0) Lymphocytes (%) (Auto) % (20.0-45.0) Monocytes (%) (Auto) % (1.0-10.0) Eosinophils (%) (Auto) % (0.0-3.0) Basophils (%) (Auto) % (0.0-2.0) Neutrophils % (Manual) Pending Lymphocytes % (Manual) Pending Platelet Estimate Pending Platelet Morphology Pending Sodium Level 149 MMOL/L (136-145) H Potassium Level 5.7 MMOL/L (3.5-5.1) H Chloride Level 116 MMOL/L (98-107) H Carbon Dioxide Level 20 MMOL/L (21-32) L Anion Gap 13 mmol/L (5-15) Blood Urea Nitrogen 121 mg/dL (7-18) H Creatinine 3.2 MG/DL (0.55-1.30) H Estimat Glomerular Filtration Rate 20.6 mL/min (>60) Glucose Level 61 MG/DL (74-106) #L Uric Acid 5.8 MG/DL (2.6-7.2) Calcium Level 8.2 MG/DL (8.5-10.1) L Phosphorus Level 5.9 MG/DL (2.5-4.9) H Magnesium Level 2.1 MG/DL (1.8-2.4) Total Bilirubin 0.4 MG/DL (0.2-1.0) Aspartate Amino Transf (AST/SGOT) 59 U/L (15-37) H Alanine Aminotransferase (ALT/SGPT) 50 U/L (12-78) Alkaline Phosphatase 97 U/L (46-116) Troponin I 0.114 ng/mL (0.000-0.056) C-Reactive Protein, Quantitative 56.3 mg/dL (0.00-0.90) H Pro-B-Type Natriuretic Peptide 95405 pg/mL (0-125) H Total Protein 5.0 G/DL (6.4-8.2) L Albumin 0.8 G/DL (3.4-5.0) L Globulin 4.2 g/dL Albumin/Globulin Ratio 0.2 (1.0-2.7) L Test 07/23/20 05:43 POC Whole Blood Glucose 56 MG/DL (74-106) L Current Medications Medications (Trade) Dose Ordered Sig/Yoselin Route PRN Reason Start Time Stop Time Status Last Admin Dose Admin Acetaminophen (Tylenol) 650 mg Q6H PRN ORAL For Pain 07/17/20 15:24 08/16/20 15:23 Acetaminophen (Tylenol) 650 mg Q6H PRN ORAL Temp >100.5 07/03/20 16:30 08/02/20 16:29 07/22/20 14:31 Acetaminophen (Tylenol) 650 mg Q6H PRN RECTAL Temp >100.5 07/04/20 20:45 08/03/20 20:44 07/19/20 20:24 Acetylcysteine (Mucomyst) 200 mg Q6HRT HHN 07/20/20 13:00 10/18/20 12:59 07/22/20 19:01 Ceftriaxone Sodium 1 gm/ Dextrose 55 ml @ 110 mls/hr Q24H IVPB 07/21/20 11:00 07/28/20 10:59 07/22/20 11:16 Chlorhexidine Gluconate (Kalie-Hex 2%) 1 applic DAILY@2000 TOPIC 07/13/20 20:00 10/11/20 19:59 07/22/20 20:33 Dextrose (Dextrose 50%) 25 ml Q30M PRN IV Hypoglycemia 07/11/20 12:15 10/09/20 12:14 Dextrose (Dextrose 50%) 50 ml Q30M PRN IV Hypoglycemia 07/11/20 12:15 10/09/20 12:14 Dextrose/Sodium Chloride 1,000 ml @ 75 mls/hr [id number] IV 07/22/20 14:30 08/21/20 14:29 07/23/20 04:48 Enoxaparin Sodium (Lovenox) 60 mg EVERY 12 HOURS SUBQ 07/20/20 21:00 10/18/20 20:59 Fentanyl Citrate 250 ml @ 1 mls/hr Q24H IV 07/22/20 18:45 07/24/20 18:44 07/23/20 08:26 Gentamicin Sulfate (Garamycin 0.3% Opth Soln) 2 drop EVERY 6 HOURS BOTH EYES 07/18/20 11:00 07/25/20 10:59 07/23/20 05:47 Insulin Aspart (NovoLOG) BEFORE MEALS AND HS SUBQ 07/08/20 16:30 10/06/20 16:29 07/22/20 11:33 Methylprednisolone Sodium Succinate (Solu-MEDROL) 40 mg EVERY 12 HOURS IVP 07/20/20 21:00 10/18/20 20:59 07/23/20 08:22 Norepinephrine Bitartrate 8 mg/ Sodium Chloride 500 ml @ 0 mls/hr Q24H PRN IV . 07/22/20 17:00 07/25/20 16:59 07/23/20 08:21 Ondansetron HCl (Zofran) 4 mg Q6H PRN IVP Nausea & Vomiting 07/17/20 16:00 08/16/20 15:59 Pantoprazole (Protonix) 40 mg EVERY 12 HOURS IVP 07/22/20 21:00 08/21/20 20:59 07/23/20 08:22 Arturo Dudley MD Jul 23, 2020 08:40
--- NOTE | 2020-07-23 08:50 | NUR ---
NURSE NOTES: Consent obtained from pt's for PRBC and Platelets. Consent in chart
--- NOTE | 2020-07-23 09:30 | NUR ---
NURSE NOTES: Ask Dr Hong to assess pt's purplish discoloration on left toes and mottling on the left foot. Dr Hong confirmed this is necrosis. Will inform Dr Kat of findings.
--- NOTE | 2020-07-23 10:00 | NUR ---
NURSE NOTES: 1 unit PRBC started at this time. Temp: 97.6, P: 92, B/P: 122/61
--- NOTE | 2020-07-23 10:01 | NUR ---
RD ASSESSMENT & RECOMMENDATIONS SEE CARE ACTIVITY FOR COMPLETE ASSESSMENT DAILY ESTIMATED NEEDS: Needs based on Critical care 62kg 22-30 kcals/kg 3204-1576 total kcals 1.25-2 g protein/kg 77-124 g total protein 25-30 mL/kg 9010-0961 total fluid mLs NUTRITION DIAGNOSIS: Predicted poor po intake r/t respiratory status/ bipap use as evidenced by pt is covid ++, on bipap, s/p code blue, now intubated, on TPN. ENTERAL NUTRITION RECOMMENDATIONS: Vital 1.2 goal of 50ml/hr x24 hrs to provide 1200ml, 1440 kcal, 90g pro, 973ml free H2O - S/p code blue now intubated, rec non oral feeds and TPN now off. - Obtain GI access, start Vital 1.2 @20ml/hr for 6 hrs. Advance as tolerated to goal-> Re-evaluate TF rate w/ propofol. TPN Comment: Pt now intubated s/p Code Blue, rec to DC TPN as pt is more appropriate for non oral feeds/ OGT/ NGT feeds. ADDITIONAL RECOMMENDATIONS: 1) PT w/ prolonged poor PO/refusals -> intubated, off TPN 2) Check HgA1C ----> 7.2 3) Monitor BGs closely w/ Solumedrol, hypoglycemic this morning (07/23) BGs 200's-500's prior to TPN, monitor need to increase Levemir 4) Now intubated-> rec OGT/ NGT feeds 5) Monitor lytes, need for renal formula. 6) Monitor hydration status, need for additional fluids: elev BUN
--- NOTE | 2020-07-23 10:15 | NUR ---
NURSE NOTES: 15 post start of transfusion. Temp: 97.6, P: 94, B/P: 124/63. Pt tolerating well. No distress noted.
[2020-07-23] MEDS: cefTRIAXone 1 GM in D5W 55 ML IVPB SCH (10:29)
[2020-07-23] MEDS ORDERED: Sodium Polystyrene Sulfonate 15gm Powder NG SCH (11:15)
--- NOTE | 2020-07-23 11:15 | NUR ---
NURSE NOTES: Dr Saul at bedside assessing pt. Updated him on pt's current condition. New orders received and acknowledged.
--- NOTE | 2020-07-23 11:44 | NUR ---
CASE MANAGEMENT:REVIEW 07/23/20 SI: COVID PNA. RESPIRATORY FAILURE ~ INTUBATED PULMONARY EMBOLI. S/P ARREST 07/19/20 CXR(+) MARCO A INFILTRATES W/POSSIBLE DEVELOPING CAVITY IN [place] 97.6 93 30 124/63 SATS~ 97% ON VENT SUPPORT W/100% FIO2 WBC+11.3 H/H-7.6/23.8 PLT-19 K+5.7 TROPONIN(_)0.114 IS: KAYEXALATE NG X1 LINEZOLID NG Q12 IV PROTONIX Q12 FENTANYL GTT LEVOPHED GTT IVF@75/HR IV ROCEPHIN Q24 LOVENOX SQ Q12 IV SOLUMEDROL Q12 : ICU STATUS DCP: FROM HOME PLAN: VENOUS DUPLEX (-) WEAN OXYGEN TOLERATED
--- NOTE | 2020-07-23 11:53 | NUR ---
INSURANCE CLINCALS AND REVIEW FAXED TO [facility] T: [phone] F: [phone]
--- NOTE | 2020-07-23 12:06 | Nephrology Progress Note ---
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 Clinically doing poorly. Serum creatinine elevated. Blood sugar low. Will change IV to D10 half-normal saline. Kayexalate for high potassium. Patient DNR/DNI. No dialysis is being offered at this time. Discussed with Re AGUIRRE. July 22: Patient hypotensive, tachycardic, on pressors, high inflammatory markers. TPN stopped. Labs reviewed. Serum creatinine glenroy. Maintenance IV started. Patient DNR. No dialysis is suggested. Continue current management.Eric July 21: Patient remains in ICU. Full code. On TPN. Labs reviewed. Electrolytes and renal parameters stable. Continue TPN as is. Discussed with pharmacy. July 20: Remains in ICU, full code, intubated, on ventilator. On TPN. Labs reviewed. Serum creatinine and serum phosphorus rising. Adjustment done with pharmacy regarding TPN. Continue to monitor renal parameters. July 19: Now in ICU and intubated. Labs reviewed. Able from renal standpoint of view and on TPN. Continue per pulmonary and ID. July 18: Remains on TPN. Full code. Labs reviewed. Discussed with [facility]. Continue as is. July 17: Remains on TPN. Labs reviewed. Discussed with pharmacy. Continue as is. July 16: Remains on TPN. Labs reviewed. Sodium slightly elevated. Levemir dose increased for better blood sugar control. Discussed with pharmacy. Continue to monitor electrolytes. July 15: On TPN. Labs reviewed. Continue TPN as is. Adjust insulin for blood sugar control. Per orders. July 14: Patient started on TPN since last night. We will continue to monitor electrolytes and renal parameters and adjust TPN composition as needed. Discussed with pharmacy. July 13: Due for PICC line today and initiation of TPN. Low magnesium addressed. Continue per current management. July 12: Remains full code. Remains on BiPAP. Labs reviewed. Low potassium and phosphorus addressed. Awaiting initiation of TPN. Subjective ROS Limited/Unobtainable: Yes Objective Objective Last 24 Hour Vital Signs Date Time Temp Pulse Resp B/P (MAP) Pulse Ox O2 Delivery O2 Flow Rate FiO2 07/23/20 11:27 94 29 100 07/23/20 11:00 30 121/56 Mechanical Ventilator 100 07/23/20 11:00 121/56 07/23/20 11:00 94 27 121/56 (77) 98 07/23/20 10:56 30 121/56 Mechanical Ventilator 100 07/23/20 10:41 32 121/56 Mechanical Ventilator 100 07/23/20 10:30 94 29 121/58 (79) 97 07/23/20 10:26 32 124/63 Mechanical Ventilator 100 07/23/20 10:15 97.6 93 30 124/63 (83) 97 07/23/20 10:11 32 122/61 Mechanical Ventilator 100 07/23/20 10:00 97.6 92 31 119/64 (82) 97 07/23/20 10:00 122/61 07/23/20 09:56 32 119/64 Mechanical Ventilator 100 07/23/20 09:41 32 122/61 Mechanical Ventilator 100 07/23/20 09:30 92 32 126/61 (82) 96 07/23/20 09:26 33 126/61 Mechanical Ventilator 100 07/23/20 09:11 33 125/63 Mechanical Ventilator 100 07/23/20 09:00 92 33 115/62 (79) 96 07/23/20 09:00 125/63 07/23/20 08:56 38 117/56 Mechanical Ventilator 100 07/23/20 08:41 38 117/56 Mechanical Ventilator 100 07/23/20 08:30 91 33 119/54 (75) 96 07/23/20 08:26 40 153/59 Mechanical Ventilator 100 07/23/20 08:21 153/59 07/23/20 08:00 97.0 92 34 150/61 (90) 96 07/23/20 08:00 100 07/23/20 08:00 153/59 07/23/20 08:00 Mechanical Ventilator 07/23/20 08:00 94 07/23/20 07:18 94 34 100 07/23/20 07:00 92 35 144/58 (86) 96 07/23/20 07:00 134/61 07/23/20 06:00 146/59 1/28/21 06:00 89 33 146/59 (88) 96 07/23/20 05:00 133/69 07/23/20 05:00 87 34 133/69 (90) 97 07/23/20 04:00 84 07/23/20 04:00 100 07/23/20 04:00 142/61 07/23/20 04:00 98.9 89 32 142/61 (88) 96 07/23/20 04:00 Mechanical Ventilator 07/23/20 03:46 83 34 100 07/23/20 03:00 86 35 141/55 (83) 97 07/23/20 03:00 142/55 07/23/20 02:00 87 35 135/68 (90) 98 07/23/20 02:00 135/68 07/23/20 01:03 102/53 07/23/20 01:00 89 33 102/53 (69) 97 07/23/20 00:00 82 07/23/20 00:00 99.1 83 33 138/58 (84) 98 07/23/20 00:00 Mechanical Ventilator 07/23/20 00:00 100 07/23/20 00:00 138/58 07/22/20 23:35 80 36 100 07/22/20 23:00 82 31 123/59 (80) 99 07/22/20 23:00 123/59 07/22/20 22:00 82 35 132/59 (83) 99 07/22/20 22:00 132/59 07/22/20 21:00 113/54 07/22/20 21:00 78 35 113/54 (73) 98 07/22/20 20:00 154 07/22/20 20:00 121/59 07/22/20 20:00 99.2 80 36 122/58 (79) 99 07/22/20 20:00 Mechanical Ventilator 07/22/20 20:00 100 07/22/20 19:31 81 37 100 Mechanical Ventilator 100 83 38 100 07/22/20 19:15 82 40 131/64 (86) 90 07/22/20 19:00 82 38 131/64 (86) 94 07/22/20 19:00 131/64 07/22/20 18:45 28 122/58 Endotracheal Tube 100 07/22/20 18:07 86/55 1/27/21 18:00 81 37 120/59 (79) 99 07/22/20 17:00 108 32 105/51 (69) 89 07/22/20 16:00 99.9 117 36 93/58 (70) 91 07/22/20 16:00 116 07/22/20 16:00 100 07/22/20 16:00 Mechanical Ventilator 07/22/20 15:56 106 44 100 07/22/20 15:30 119 24 84/47 (59) 94 07/22/20 15:16 88/64 07/22/20 15:01 100.9 07/22/20 15:00 123 34 96/57 (70) 88 07/22/20 14:30 121 37 89/51 (64) 88 07/22/20 14:15 123 24 90/40 (57) 91 07/22/20 14:00 125 36 81/49 (60) 87 07/22/20 13:00 129 45 87/47 (60) 82 07/22/20 12:30 136 44 97/61 (73) 81 Intake and Output 07/22/20 07/23/20 19:00 07:00 Intake Total 2030.75 ml 1725 ml Output Total 215 ml 230 ml Balance 1815.75 ml 1495 ml IV Total 1950.75 ml 1725 ml Other 80 ml Output Urine Total 215 ml 230 ml Current Medications Medications (Trade) Dose Ordered Sig/Yoselin Route PRN Reason Start Time Stop Time Status Last Admin Dose Admin Acetaminophen (Tylenol) 650 mg Q6H PRN ORAL For Pain 07/17/20 15:24 08/16/20 15:23 Acetaminophen (Tylenol) 650 mg Q6H PRN ORAL Temp >100.5 07/03/20 16:30 08/02/20 16:29 07/22/20 14:31 Acetaminophen (Tylenol) 650 mg Q6H PRN RECTAL Temp >100.5 07/04/20 20:45 08/03/20 20:44 07/19/20 20:24 Acetylcysteine (Mucomyst) 200 mg Q6HRT HHN 07/20/20 13:00 10/18/20 12:59 07/22/20 19:01 Ceftriaxone Sodium 1 gm/ Dextrose 55 ml @ 110 mls/hr Q24H IVPB 07/21/20 11:00 07/28/20 10:59 07/23/20 10:29 Chlorhexidine Gluconate (Kalie-Hex 2%) 1 applic DAILY@2000 TOPIC 07/13/20 20:00 10/11/20 19:59 07/22/20 20:33 Dextrose (Dextrose 50%) 25 ml Q30M PRN IV Hypoglycemia 07/11/20 12:15 10/09/20 12:14 Dextrose (Dextrose 50%) 50 ml Q30M PRN IV Hypoglycemia 07/11/20 12:15 10/09/20 12:14 Dextrose/Sodium Chloride 1,000 ml @ 75 mls/hr [id number] IV 07/22/20 14:30 08/21/20 14:29 07/23/20 04:48 Enoxaparin Sodium (Lovenox) 60 mg EVERY 12 HOURS SUBQ 07/20/20 21:00 10/18/20 20:59 Fentanyl Citrate 250 ml @ 1 mls/hr Q24H IV 07/22/20 18:45 07/24/20 18:44 07/23/20 08:26 Gentamicin Sulfate (Garamycin 0.3% Opth Soln) 2 drop EVERY 6 HOURS BOTH EYES 07/18/20 11:00 07/25/20 10:59 07/23/20 05:47 Insulin Aspart (NovoLOG) BEFORE MEALS AND HS SUBQ 07/08/20 16:30 10/06/20 16:29 07/22/20 11:33 Linezolid (Zyvox) 600 mg EVERY 12 HOURS NG 07/23/20 09:45 07/28/20 09:44 07/23/20 10:29 Methylprednisolone Sodium Succinate (Solu-MEDROL) 40 mg EVERY 12 HOURS IVP 07/20/20 21:00 10/18/20 20:59 07/23/20 08:22 Norepinephrine Bitartrate 8 mg/ Sodium Chloride 500 ml @ 0 mls/hr Q24H PRN IV . 07/22/20 17:00 07/25/20 16:59 07/23/20 08:21 Ondansetron HCl (Zofran) 4 mg Q6H PRN IVP Nausea & Vomiting 07/17/20 16:00 08/16/20 15:59 Pantoprazole (Protonix) 40 mg EVERY 12 HOURS IVP 07/22/20 21:00 08/21/20 20:59 07/23/20 08:22 Sodium Polystyrene Sulfonate (Kayexalate) 45 gm ONCE NG 07/23/20 11:15 07/23/20 15:00 Laboratory Tests 07/22/20 16:53: POC Whole Blood Glucose 93 07/22/20 20:36: POC Whole Blood Glucose 75 07/23/20 03:45: White Blood Count 11.3#H, Red Blood Count 2.51L, Hemoglobin 7.6L, Hematocrit 23.8L, Mean Corpuscular Volume 94, Mean Corpuscular Hemoglobin 30.1, Mean Corpuscular Hemoglobin Concent 31.8L, Red Cell Distribution Width 14.6, Platelet Count 19L, Mean Platelet Volume , Neutrophils (%) (Auto) , Lymphocytes (%) (Auto) , Monocytes (%) (Auto) , Eosinophils (%) (Auto) , Basophils (%) (Auto) , Differential Total Cells Counted 100, Neutrophils % (Manual) 69, Lymphocytes % (Manual) 7L, Monocytes % (Manual) 1, Eosinophils % (Manual) 0, Basophils % (Manual) 0, Band Neutrophils 23H, Platelet Estimate DecreasedL, Platelet Morphology Normal, Hypochromasia 2+, Anisocytosis 1+, Sodium Level 149H, Potassium Level 5.7H, Chloride Level 116H, Carbon Dioxide Level 20L, Anion Gap 13, Blood Urea Nitrogen 121H, Creatinine 3.2H, Estimat Glomerular Filtration Rate 20.6, Glucose Level 61#L, Uric Acid 5.8, Calcium Level 8.2L, Phosphorus Level 5.9H, Magnesium Level 2.1, Total Bilirubin 0.4, Aspartate Amino Transf ( AST/SGOT) 59H, Alanine Aminotransferase (ALT/SGPT) 50, Alkaline Phosphatase 97, Troponin I 0.114H, C-Reactive Protein, Quantitative 56.3H, Pro-B-Type Natriuretic Peptide [id number], Total Protein 5.0L, Albumin 0.8L, Globulin 4.2, Albumin/Globulin Ratio 0.2L 07/23/20 05:43: POC Whole Blood Glucose 56L Height (Feet): 5 Height (Inches): 4.00 Weight (Pounds): 146 General Appearance: no apparent distress Cardiovascular: tachycardia Respiratory/Chest: decreased breath sounds Abdomen: distended Fouladian,Jimmy MD Jul 23, 2020 12:06
--- NOTE | 2020-07-23 12:37 | Cardiology Report ---
APPROVED REPORT EKG Measurement Heart [id number] <Conclusion> Atrial fibrillation with rapid ventricular response Minimal voltage criteria for LVH, may be normal variant ST & T wave abnormality, consider inferolateral ischemia Abnormal ECG
--- NOTE | 2020-07-23 12:40 | NUR ---
NURSE NOTES: Pt s/p 1 unit PRBC blood transfusion. No adverse reactions noted. Temp: 97.5, P:94, B/P: 124/59
[2020-07-23] MEDS: Dextrose 10%/.45 SOD CHL 1,000 ML IV SCH (13:00)
--- NOTE | 2020-07-23 14:30 | NUR ---
NURSE NOTES: Pt turned and repositioned. Oral care done. Pt remains on Fentanyl 100mcg/hr; RASS score of -2. No distress noted.
--- NOTE | 2020-07-23 15:10 | NUR ---
NURSE NOTES: Called blood bank and was informed that platelets are not yet ready.
--- NOTE | 2020-07-23 17:10 | NUR ---
NURSE NOTES: Pt fully cleaned and linens changed. No BM noted, although anticipating it after Kayexalate administration. Pt remains on 100% FiO2; O2sat 98%. Pt sedated; RASS -2, on Fentanyl 100mcg/hr. Levophed running @ 12mcg/min to maintain SBP >90.
--- NOTE | 2020-07-23 18:14 | NUR ---
NURSE NOTES: Platelets are still not ready, per blood bank.
--- NOTE | 2020-07-23 18:50 | NUR ---
NURSE NOTES: Platelet transfusion hung at this time. Temp 97.6, P: 95, B/P: 115/53
--- NOTE | 2020-07-23 19:05 | NUR ---
NURSE NOTES: 15 mins post start of transfusion. Pt tolerating well. Temp: 97.6, P: 95, B/P: 114/49
--- NOTE | 2020-07-23 19:22 | NUR ---
NURSE HAND-OFF REPORT: Latest Vital Signs: Temperature 97.6 , Pulse 94 , B/P 114 /49 , Respiratory Rate 25 , O2 SAT 97 , Mechanical Ventilator, FiO2 100% . Vital Sign Comment: EKG Rhythm: Sinus Rhythm Rhythm change?: N MD Notified?: MD Response: Latest Mcdowell Fall Score: 60 Fall Risk: High Risk Safety Measures: Call light Within Reach, Bed Alarm Zone 1, Side Rails Side Rails x3, Bed position Low and Locked. Fall Precautions: Door Sign Report given to TIMOTHY Frost.
[2020-07-23] MEDS: Dyna-Hex 2% Top Sol 2oz TOPIC SCH (21:00)
[2020-07-24] VITALS (16 sets, daily range): BP systolic 93–105; BP diastolic 35–51
[2020-07-24] MEDS: Gentamicin 0.3% Opth Soln 5ml BOTH EYES SCH ×2 (03:03)
--- NOTE | 2020-07-24 04:02 | Cardiology Progress Note ---
Subjective DATE OF SERVICE: Jul 23, 2020 Worsening cardiovascular parameters due to hypotension, and cont'd hypoxia on 100% FIO2. Remains on pressors, with episodes of AFib and RVR. Remains in ICU on full vent support; s/p code blue due to hypoxia and seizure on 07/19. Left foot cold and bluish toe #3 - arterial duplex 07/17 without proximal obstruction. Monitor: sinus rhythm with tachycardia and rare ectopics 2D Echo - normal LVEF, no signs RV strain, normal PA pressure of 30mm Hg CXR (07/20) persisting ALMA infiltrate and improved right basilar infiltrate. Objective Last 24 Hour Vital Signs Date Time Temp Pulse Resp B/P (MAP) Pulse Ox O2 Delivery O2 Flow Rate FiO2 07/24/20 03:43 103 25 100 07/24/20 03:00 102 25 98/45 (62) 95 07/24/20 02:45 102 24 100/46 (64) 95 07/24/20 02:30 102 25 103/44 (63) 95 07/24/20 02:15 102 24 102/45 (64) 94 07/24/20 02:00 102 25 100/46 (64) 94 07/24/20 01:45 102 25 101/46 (64) 94 07/24/20 01:30 102 25 104/50 (68) 94 07/24/20 01:15 102 25 103/51 (68) 93 07/24/20 01:00 101 24 105/43 (63) 92 07/24/20 00:00 98.6 102 25 102/48 (66) 96 07/24/20 00:00 90 07/24/20 00:00 Mechanical Ventilator 07/23/20 23:39 101 25 100 07/23/20 23:00 101 25 115/50 (71) 92 07/23/20 22:00 97.9 100 25 101/54 (70) 93 07/23/20 21:00 98.2 86 25 107/46 (66) 97 07/23/20 21:00 91 07/23/20 20:00 Mechanical Ventilator 07/23/20 20:00 97.6 94 25 109/50 (69) 97 07/23/20 19:58 95 25 100 07/23/20 19:00 25 114/49 Mechanical Ventilator 100 07/23/20 19:00 114/49 07/23/20 19:00 97.6 94 25 114/49 (70) 97 07/23/20 18:00 25 114/54 Mechanical Ventilator 100 07/23/20 18:00 114/54 07/23/20 18:00 92 25 117/42 (67) 97 07/23/20 17:00 25 103/42 Mechanical Ventilator 100 07/23/20 17:00 118/52 07/23/20 17:00 93 25 103/42 (62) 98 07/23/20 16:00 100 07/23/20 16:00 Mechanical Ventilator 07/23/20 16:00 97.5 94 25 113/45 (67) 98 07/23/20 16:00 26 113/45 Mechanical Ventilator 100 07/23/20 16:00 113/45 07/23/20 16:00 92 07/23/20 15:18 94 29 100 07/23/20 15:00 94 26 113/40 (64) 99 07/23/20 15:00 27 113/40 Mechanical Ventilator 100 07/23/20 15:00 113/40 07/23/20 14:30 93 26 114/43 (66) 99 07/23/20 14:00 94 27 126/43 (70) 98 07/23/20 14:00 26 117/53 Mechanical Ventilator 100 07/23/20 14:00 117/53 07/23/20 13:30 92 25 125/60 (81) 97 07/23/20 13:00 93 23 119/54 (75) 98 07/23/20 13:00 26 120/63 Mechanical Ventilator 100 07/23/20 13:00 120/63 07/23/20 12:30 93 26 124/59 (80) 98 07/23/20 12:00 25 118/59 Mechanical Ventilator 100 07/23/20 12:00 118/59 07/23/20 12:00 97.5 92 25 119/56 (77) 98 07/23/20 12:00 Mechanical Ventilator 07/23/20 12:00 100 07/23/20 12:00 94 07/23/20 11:30 94 24 123/60 (81) 98 07/23/20 11:27 94 29 100 07/23/20 11:00 30 121/56 Mechanical Ventilator 100 07/23/20 11:00 121/56 07/23/20 11:00 94 27 121/56 (77) 98 07/23/20 10:56 30 121/56 Mechanical Ventilator 100 07/23/20 10:41 32 121/56 Mechanical Ventilator 100 07/23/20 10:30 94 29 121/58 (79) 97 07/23/20 10:26 32 124/63 Mechanical Ventilator 100 07/23/20 10:15 97.6 93 30 124/63 (83) 97 07/23/20 10:11 32 122/61 Mechanical Ventilator 100 07/23/20 10:00 97.6 92 31 119/64 (82) 97 07/23/20 10:00 122/61 07/23/20 09:56 32 119/64 Mechanical Ventilator 100 07/23/20 09:41 32 122/61 Mechanical Ventilator 100 07/23/20 09:30 92 32 126/61 (82) 96 07/23/20 09:26 33 126/61 Mechanical Ventilator 100 07/23/20 09:11 33 125/63 Mechanical Ventilator 100 07/23/20 09:00 92 33 115/62 (79) 96 07/23/20 09:00 125/63 07/23/20 08:56 38 117/56 Mechanical Ventilator 100 07/23/20 08:41 38 117/56 Mechanical Ventilator 100 07/23/20 08:30 91 33 119/54 (75) 96 07/23/20 08:26 40 153/59 Mechanical Ventilator 100 07/23/20 08:21 153/59 07/23/20 08:00 97.0 92 34 150/61 (90) 96 07/23/20 08:00 100 07/23/20 08:00 153/59 07/23/20 08:00 Mechanical Ventilator 07/23/20 08:00 94 07/23/20 07:18 94 34 100 07/23/20 07:00 92 35 144/58 (86) 96 07/23/20 07:00 134/61 07/23/20 06:00 146/59 07/23/20 06:00 89 33 146/59 (88) 96 07/23/20 05:00 133/69 07/23/20 05:00 87 34 133/69 (90) 97 ROS: unchanged from 06/19/20 HEENT: Mechanically Ventilated, Thin secretions ET Tube, other - bipap RHYTHM: ST, Afib LUNGS: bilat. rhonchi and rales CARDIAC: normal rate, regular rhythm, normal S1 and S2 ABDOMEN: normal bowel sounds, soft, distended EXTREMITIES: normal range of motion, non-tender, trace edema, other - left toes 1,2,3 with gangrenous changes - especially evident in 3rd toe. Laboratory Tests Test 07/23/20 05:43 07/23/20 11:37 07/23/20 16:08 POC Whole Blood Glucose 56 MG/DL (74-106) L 71 MG/DL (74-106) L 167 MG/DL (74-106) H Microbiology Date/Time Source Procedure Growth Status 07/22/20 03:15 Indwelling Cath Urine Culture - Preliminary NO GROWTH Resulted 07/22/20 03:15 Sputum Induced Gram Stain - Final Resulted 07/22/20 03:15 Sputum Culture - Preliminary Gram Negative Bacillus 1 Resulted 07/21/20 15:50 Blood Blood Culture - Final Enterococcus Faecalis Complete Assessment/Plan Assessment/Plan Shock Acute respiratory failure HC associated PNA COVID 19 PNA Hypoxia Ac pulmonary embolism Acute coronary syndrome/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 Sinus tachycardia Left LE ischemia Dehydration/hypernatremia Paroxysmal AFib with RVR Remains Critical and Guarded Continue pressor support. Vent support Free water replacement Full anticoagulation Antimicrobials Monitor for sustained atrial arrhythmias Replace lytes as needed Insulin cov'g by SS IV cardizem for rate control All discussed with ICU staff Aden Mejias MD Jul 24, 2020 04:02
[2020-07-24 05:05] LABS: HEMATOCRIT 25.1 % (42.0-52.0); HEMOGLOBIN 8.1 G/DL (14.2-18.0); MEAN CORPUSCULAR VOLUME 98 FL (80-99); PLATELET COUNT 23 K/UL (150-450); RED BLOOD COUNT 2.56 M/UL (4.70-6.10); RED CELL DISTRIBUTION WIDTH 16.3 % (11.6-14.8); WHITE BLOOD COUNT 10.9 K/UL (4.8-10.8)
[2020-07-24 05:07] LABS: ALBUMIN 1.1 G/DL (3.4-5.0); ALBUMIN/GLOBULIN RATIO 0.3 (1.0-2.7); BILIRUBIN,TOTAL 0.5 MG/DL (0.2-1.0); CALCIUM 7.7 MG/DL (8.5-10.1); CREATININE 3.7 MG/DL (0.55-1.30); PHOSPHORUS 7.7 MG/DL (2.5-4.9)
[2020-07-24 05:10] LABS: POTASSIUM 6.5 MMOL/L (3.5-5.1)
[2020-07-24] MEDS: NovoLOG Insulin Flexpen SUBQ SCH (06:05)
--- NOTE | 2020-07-24 07:15 | NUR ---
NURSE NOTES: Patient received this morning from BP, RN sedated and intubated, ETT and OGT in place. Overnight nurse placed call to [employer], Dr. Yap regarding the patient's K+ level of 6.5, awaiting return call. Patient is asymptomatic at this time. All labs reviewed and abnormal, please see results in [facility], care team is aware. Patient is a confirmed DNR, care interventions remain in place. This patient is SR-ST on tele, VS otherwise stable. He is also s/p transfusion of platelets and PRBCs on 07/23. Will con't to monitor and carry out the plan of care.
--- NOTE | 2020-07-24 07:20 | NUR ---
RESPIRATORY NOTE: PT received on AC/VC 25, 400, 100%, +14. Alarms are on and audible. Ventilator circuit is secure and out of the way. Pt has high RR that is shallow and irregular. Low saturation of 81% . RN Shonda is aware. Will continue to closely monitor.
--- NOTE | 2020-07-24 07:26 | NUR ---
nephro called twice. No response. Report given, oncoming rn aware of K
--- NOTE | 2020-07-24 07:39 | Hematology/Onc Progress Note ---
Assessment/Plan Assessment/Plan Assessment and recs # Thrombocytopenia, severe is less likely related to HIT, more likely to underlying infection and covid 19++ --> meds reviewed is too far out from getting heparin to be HIT --> DIC panel has been ordered-->reviewed --> continue on abx for now --> peripheral smear reviewed, no blasts noted --> rule out consumptive process --> transfuse to plt >20k -> plt 206->59-->19-->23 --> okay for LOVENOX best option we have at this time, trend plts closely --> also less likely hit, venous duplex is neg # RLL PE with R heart strain. --> was before heparin-->lovenox sq --> for now continue lovenox if no bleeding # Anemia of chronic disease --> hgb 10->7.6 --> no hemolysis is seen --> anemia panel is noted # COVID19+++ with Hypoxia --> s/p intubation # Pneumonia due to COVID-19 virus --> as per id vanc/ctx # NSTEMi --> per cards # Dysphagia s/p ogt # Dvt ppx lovenox Appreciate consultation and lexie Rn Subjective Allergies: Coded Allergies: No Known Allergies (Unverified , 06/18/20) All Systems: reviewed and negative except above Subjective 07/22 remains on vent, plt 59, hgb low, hit ab test pending, on lovenox sq 07/23 remains on levo, plts are lower, remains on lovenox sq bid 07/24 icu, is on vent, labs noted, no bleeding, lovenox k high Objective Objective Current Medications Medications (Trade) Dose Ordered Sig/Yoselin Route PRN Reason Start Time Stop Time Status Last Admin Dose Admin Acetaminophen (Tylenol) 650 mg Q6H PRN ORAL For Pain 07/17/20 15:24 08/16/20 15:23 Acetaminophen (Tylenol) 650 mg Q6H PRN ORAL Temp >100.5 07/03/20 16:30 08/02/20 16:29 07/22/20 14:31 Acetaminophen (Tylenol) 650 mg Q6H PRN RECTAL Temp >100.5 07/04/20 20:45 08/03/20 20:44 07/19/20 20:24 Ceftriaxone Sodium 1 gm/ Dextrose 55 ml @ 110 mls/hr Q24H IVPB 07/21/20 11:00 07/28/20 10:59 07/23/20 10:29 Chlorhexidine Gluconate (Kalie-Hex 2%) 1 applic DAILY@2000 TOPIC 07/13/20 20:00 10/11/20 19:59 07/23/20 21:00 Dextrose (Dextrose 50%) 25 ml Q30M PRN IV Hypoglycemia 07/11/20 12:15 10/09/20 12:14 Dextrose (Dextrose 50%) 50 ml Q30M PRN IV Hypoglycemia 07/11/20 12:15 10/09/20 12:14 Dextrose/Sodium Chloride 1,000 ml @ 100 mls/hr Q10H IV 07/23/20 14:00 08/22/20 13:59 07/24/20 00:00 Enoxaparin Sodium (Lovenox) 60 mg EVERY 12 HOURS SUBQ 07/20/20 21:00 10/18/20 20:59 Fentanyl Citrate 250 ml @ 1 mls/hr Q24H IV 07/22/20 18:45 07/24/20 18:44 07/23/20 08:26 Gentamicin Sulfate (Garamycin 0.3% Opth Soln) 2 drop EVERY 6 HOURS BOTH EYES 07/18/20 11:00 07/25/20 10:59 07/24/20 03:03 Insulin Aspart (NovoLOG) BEFORE MEALS AND HS SUBQ 07/08/20 16:30 10/06/20 16:29 07/23/20 21:00 Linezolid (Zyvox) 600 mg EVERY 12 HOURS NG 07/23/20 09:45 07/28/20 09:44 07/23/20 21:01 Methylprednisolone Sodium Succinate (Solu-MEDROL) 40 mg EVERY 12 HOURS IVP 07/20/20 21:00 10/18/20 20:59 07/23/20 21:03 Norepinephrine Bitartrate 8 mg/ Sodium Chloride 500 ml @ 0 mls/hr Q24H PRN IV . 07/22/20 17:00 07/25/20 16:59 07/23/20 17:00 Ondansetron HCl (Zofran) 4 mg Q6H PRN IVP Nausea & Vomiting 07/17/20 16:00 08/16/20 15:59 Pantoprazole (Protonix) 40 mg EVERY 12 HOURS IVP 07/22/20 21:00 08/21/20 20:59 07/23/20 21:00 Last 24 Hour Vital Signs Date Time Temp Pulse Resp B/P (MAP) Pulse Ox O2 Delivery O2 Flow Rate FiO2 07/24/20 06:00 103 25 102/38 (59) 92 07/24/20 04:00 100 07/24/20 04:00 103 07/24/20 04:00 Mechanical Ventilator 07/24/20 04:00 103 25 94/45 (61) 95 07/24/20 03:43 103 25 100 07/24/20 03:00 102 25 98/45 (62) 95 07/24/20 02:45 102 24 100/46 (64) 95 07/24/20 02:30 102 25 103/44 (63) 95 07/24/20 02:15 102 24 102/45 (64) 94 07/24/20 02:00 102 25 100/46 (64) 94 07/24/20 01:45 102 25 101/46 (64) 94 07/24/20 01:30 102 25 104/50 (68) 94 07/24/20 01:15 102 25 103/51 (68) 93 07/24/20 01:00 101 24 105/43 (63) 92 07/24/20 00:00 98.6 102 25 102/48 (66) 96 07/24/20 00:00 90 07/24/20 00:00 Mechanical Ventilator 07/23/20 23:39 101 25 100 07/23/20 23:00 101 25 115/50 (71) 92 07/23/20 22:00 97.9 100 25 101/54 (70) 93 07/23/20 21:00 98.2 86 25 107/46 (66) 97 07/23/20 21:00 91 07/23/20 20:00 Mechanical Ventilator 07/23/20 20:00 25 115/55 Endotracheal Tube 100 07/23/20 20:00 97.6 94 25 109/50 (69) 97 07/23/20 19:58 95 25 100 07/23/20 19:00 25 114/49 Mechanical Ventilator 100 07/23/20 19:00 114/49 07/23/20 19:00 97.6 94 25 114/49 (70) 97 07/23/20 18:00 25 114/54 Mechanical Ventilator 100 07/23/20 18:00 114/54 07/23/20 18:00 92 25 117/42 (67) 97 07/23/20 17:00 25 103/42 Mechanical Ventilator 100 07/23/20 17:00 118/52 07/23/20 17:00 93 25 103/42 (62) 98 07/23/20 16:00 100 07/23/20 16:00 Mechanical Ventilator 07/23/20 16:00 97.5 94 25 113/45 (67) 98 07/23/20 16:00 26 113/45 Mechanical Ventilator 100 07/23/20 16:00 113/45 07/23/20 16:00 92 07/23/20 15:18 94 29 100 07/23/20 15:00 94 26 113/40 (64) 99 07/23/20 15:00 27 113/40 Mechanical Ventilator 100 07/23/20 15:00 113/40 07/23/20 14:30 93 26 114/43 (66) 99 07/23/20 14:00 94 27 126/43 (70) 98 07/23/20 14:00 26 117/53 Mechanical Ventilator 100 07/23/20 14:00 117/53 07/23/20 13:30 92 25 125/60 (81) 97 07/23/20 13:00 93 23 119/54 (75) 98 07/23/20 13:00 26 120/63 Mechanical Ventilator 100 07/23/20 13:00 120/63 07/23/20 12:30 93 26 124/59 (80) 98 07/23/20 12:00 25 118/59 Mechanical Ventilator 100 07/23/20 12:00 118/59 07/23/20 12:00 97.5 92 25 119/56 (77) 98 07/23/20 12:00 Mechanical Ventilator 07/23/20 12:00 100 07/23/20 12:00 94 07/23/20 11:30 94 24 123/60 (81) 98 07/23/20 11:27 94 29 100 07/23/20 11:00 30 121/56 Mechanical Ventilator 100 07/23/20 11:00 121/56 07/23/20 11:00 94 27 121/56 (77) 98 07/23/20 10:56 30 121/56 Mechanical Ventilator 100 07/23/20 10:41 32 121/56 Mechanical Ventilator 100 07/23/20 10:30 94 29 121/58 (79) 97 07/23/20 10:26 32 124/63 Mechanical Ventilator 100 07/23/20 10:15 97.6 93 30 124/63 (83) 97 07/23/20 10:11 32 122/61 Mechanical Ventilator 100 07/23/20 10:00 97.6 92 31 119/64 (82) 97 07/23/20 10:00 122/61 07/23/20 09:56 32 119/64 Mechanical Ventilator 100 07/23/20 09:41 32 122/61 Mechanical Ventilator 100 07/23/20 09:30 92 32 126/61 (82) 96 07/23/20 09:26 33 126/61 Mechanical Ventilator 100 07/23/20 09:11 33 125/63 Mechanical Ventilator 100 07/23/20 09:00 92 33 115/62 (79) 96 07/23/20 09:00 125/63 07/23/20 08:56 38 117/56 Mechanical Ventilator 100 07/23/20 08:41 38 117/56 Mechanical Ventilator 100 07/23/20 08:30 91 33 119/54 (75) 96 07/23/20 08:26 40 153/59 Mechanical Ventilator 100 07/23/20 08:21 153/59 07/23/20 08:00 97.0 92 34 150/61 (90) 96 07/23/20 08:00 100 07/23/20 08:00 153/59 07/23/20 08:00 Mechanical Ventilator 07/23/20 08:00 94 07/23/20 07:18 94 34 100 07/23/20 07:00 92 35 144/58 (86) 96 07/23/20 07:00 134/61 07/23/20 06:00 146/59 07/23/20 06:00 89 33 146/59 (88) 96 07/23/20 05:00 133/69 07/23/20 05:00 87 34 133/69 (90) 97 07/23/20 04:00 84 07/23/20 04:00 100 07/23/20 04:00 142/61 07/23/20 04:00 98.9 89 32 142/61 (88) 96 07/23/20 04:00 Mechanical Ventilator 07/23/20 03:46 83 34 100 07/23/20 03:00 86 35 141/55 (83) 97 07/23/20 03:00 142/55 07/23/20 02:00 87 35 135/68 (90) 98 07/23/20 02:00 135/68 07/23/20 01:03 102/53 07/23/20 01:00 89 33 102/53 (69) 97 07/23/20 00:00 82 07/23/20 00:00 99.1 83 33 138/58 (84) 98 07/23/20 00:00 Mechanical Ventilator 07/23/20 00:00 100 07/23/20 00:00 138/58 07/22/20 23:35 80 36 100 07/22/20 23:00 82 31 123/59 (80) 99 07/22/20 23:00 123/59 07/22/20 22:00 82 35 132/59 (83) 99 07/22/20 22:00 132/59 07/22/20 21:00 113/54 07/22/20 21:00 78 35 113/54 (73) 98 07/22/20 20:00 154 07/22/20 20:00 121/59 07/22/20 20:00 99.2 80 36 122/58 (79) 99 07/22/20 20:00 Mechanical Ventilator 07/22/20 20:00 100 07/22/20 19:31 81 37 100 Mechanical Ventilator 100 83 38 100 07/22/20 19:15 82 40 131/64 (86) 90 07/22/20 19:00 82 38 131/64 (86) 94 07/22/20 19:00 131/64 07/22/20 18:45 28 122/58 Endotracheal Tube 100 07/22/20 18:07 86/55 07/22/20 18:00 81 37 120/59 (79) 99 07/22/20 17:00 108 32 105/51 (69) 89 07/22/20 16:00 99.9 117 36 93/58 (70) 91 07/22/20 16:00 116 07/22/20 16:00 100 07/22/20 16:00 Mechanical Ventilator 07/22/20 15:56 106 44 100 07/22/20 15:30 119 24 84/47 (59) 94 07/22/20 15:16 88/64 07/22/20 15:01 100.9 07/22/20 15:00 123 34 96/57 (70) 88 07/22/20 14:30 121 37 89/51 (64) 88 07/22/20 14:15 123 24 90/40 (57) 91 07/22/20 14:00 125 36 81/49 (60) 87 07/22/20 13:00 129 45 87/47 (60) 82 07/22/20 12:30 136 44 97/61 (73) 81 07/22/20 12:00 100.9 137 39 97/52 (67) 84 07/22/20 12:00 Mechanical Ventilator 07/22/20 12:00 100 07/22/20 11:45 123 39 100 07/22/20 11:30 141 43 109/74 (86) 84 07/22/20 11:17 99/48 07/22/20 11:00 149 38 103/61 (75) 86 07/22/20 10:00 157 42 111/48 (69) 87 07/22/20 09:45 157 40 106/43 (64) 83 07/22/20 09:30 170 38 86/37 (53) 83 07/22/20 09:15 171 41 92/51 (65) 83 07/22/20 09:00 185 41 119/62 (81) 89 07/22/20 08:45 184 40 103/64 (77) 91 07/22/20 08:30 178 39 117/55 (75) 89 07/22/20 08:00 99.5 177 40 124/52 (76) 87 07/22/20 08:00 180 07/22/20 08:00 100 07/22/20 08:00 Mechanical Ventilator 07/22/20 07:51 166 42 100 07/22/20 07:39 59/21 Intake and Output 07/23/20 07/24/20 19:00 07:00 Intake Total 2183.21 ml 1560 ml Output Total 420 ml 165 ml Balance 1763.21 ml 1395 ml IV Total 1703.21 ml 1560 ml Other 480 ml Output Urine Total 420 ml 165 ml Labs Test 07/21/20 13:53 07/21/20 14:50 07/21/20 15:50 07/21/20 17:43 Arterial Blood pH 7.306 (7.350-7.450) 7.094 (7.350-7.450) 7.273 (7.350-7.450) Arterial Blood Partial Pressure CO2 50.6 mmHg (35.0-45.0) 62.5 mmHg (35.0-45.0) 54.6 mmHg (35.0-45.0) Arterial Blood Partial Pressure O2 38.7 mmHg (75.0-100.0) 51.0 mmHg (75.0-100.0) 45.8 mmHg (75.0-100.0) Arterial Blood HCO3 24.7 mmol/L (22.0-26.0) 18.7 mmol/L (22.0-26.0) 24.7 mmol/L (22.0-26.0) Arterial Blood Oxygen Saturation 73.8 % (95-100) 75.1 % (95-100) 79.9 % (95-100) Arterial Blood Base Excess -1.9 (-2-2) -11.0 (-2-2) -2.3 (-2-2) Roshan Test Positive Positive Positive Prothrombin Time 12.3 SEC (9.30-11.50) Prothromb Time International Ratio 1.1 (0.9-1.1) Test 07/21/20 19:47 07/21/20 21:22 07/22/20 03:15 07/22/20 06:17 Arterial Blood pH 7.242 (7.350-7.450) Arterial Blood Partial Pressure CO2 61.5 mmHg (35.0-45.0) Arterial Blood Partial Pressure O2 37.0 mmHg (75.0-100.0) Arterial Blood HCO3 25.9 mmol/L (22.0-26.0) Arterial Blood Oxygen Saturation 67.0 % (95-100) Arterial Blood Base Excess -1.9 (-2-2) Roshan Test Positive POC Whole Blood Glucose 227 MG/DL (74-106) Urine Color Yellow Urine Appearance Slightly cloudy Urine pH 5 (4.5-8.0) Urine Specific Beyer 1.020 (1.005-1.035) Urine Protein 2+ (NEGATIVE) Urine Glucose (UA) 3+ (NEGATIVE) Urine Ketones Negative (NEGATIVE) Urine Blood 3+ (NEGATIVE) Urine Nitrite Negative (NEGATIVE) Urine Bilirubin Negative (NEGATIVE) Urine Urobilinogen Normal MG/DL (0.0-1.0) Urine Leukocyte Esterase 1+ (NEGATIVE) Urine RBC 5-10 /HPF (0 - 0) Urine WBC 2-4 /HPF (0 - 0) Urine Squamous Epithelial Cells Occasional /LPF Urine Amorphous Sediment Few /LPF (NONE) Urine Bacteria Many /HPF (NONE) White Blood Count 3.1 K/UL (4.8-10.8) Red Blood Count 2.54 M/UL (4.70-6.10) Hemoglobin 7.6 G/DL (14.2-18.0) Hematocrit 24.3 % (42.0-52.0) Mean Corpuscular Volume 96 FL (80-99) Mean Corpuscular Hemoglobin 29.8 PG (27.0-31.0) Mean Corpuscular Hemoglobin Concent 31.1 G/DL (32.0-36.0) Red Cell Distribution Width 14.1 % (11.6-14.8) Platelet Count 24 K/UL (150-450) Mean Platelet Volume FL (6.5-10.1) Neutrophils (%) (Auto) % (45.0-75.0) Lymphocytes (%) (Auto) % (20.0-45.0) Monocytes (%) (Auto) % (1.0-10.0) Eosinophils (%) (Auto) % (0.0-3.0) Basophils (%) (Auto) % (0.0-2.0) Differential Total Cells Counted 100 Neutrophils % (Manual) 74 % (45-75) Lymphocytes % (Manual) 13 % (20-45) Monocytes % (Manual) 4 % (1-10) Eosinophils % (Manual) 0 % (0-3) Basophils % (Manual) 0 % (0-2) Metamyelocytes % 1 % (0-0) Myelocytes % 2 % (0-0) Band Neutrophils 6 % (0-8) Platelet Estimate Decreased Platelet Morphology Normal Hypochromasia 1+ Anisocytosis 1+ Sodium Level 150 MMOL/L (136-145) Potassium Level 5.6 MMOL/L (3.5-5.1) Chloride Level 117 MMOL/L (98-107) Carbon Dioxide Level 23 MMOL/L (21-32) Anion Gap 10 mmol/L (5-15) Blood Urea Nitrogen 96 mg/dL (7-18) Creatinine 2.6 MG/DL (0.55-1.30) Estimat Glomerular Filtration Rate 26.2 mL/min (>60) Glucose Level 180 MG/DL (74-106) Calcium Level 8.3 MG/DL (8.5-10.1) Phosphorus Level 3.6 MG/DL (2.5-4.9) Magnesium Level 2.0 MG/DL (1.8-2.4) Total Bilirubin 0.2 MG/DL (0.2-1.0) Aspartate Amino Transf (AST/SGOT) 24 U/L (15-37) Alanine Aminotransferase (ALT/SGPT) 25 U/L (12-78) Alkaline Phosphatase 84 U/L (46-116) C-Reactive Protein, Quantitative 48.2 mg/dL (0.00-0.90) Pro-B-Type Natriuretic Peptide 53664 pg/mL (0-125) Total Protein 4.3 G/DL (6.4-8.2) Albumin 0.7 G/DL (3.4-5.0) Globulin 3.6 g/dL Albumin/Globulin Ratio 0.2 (1.0-2.7) Triglycerides Level 190 MG/DL (30-150) Test 07/22/20 11:26 07/22/20 16:53 07/22/20 20:36 07/23/20 03:45 POC Whole Blood Glucose 200 MG/DL (74-106) 93 MG/DL (74-106) 75 MG/DL (74-106) White Blood Count 11.3 K/UL (4.8-10.8) Red Blood Count 2.51 M/UL (4.70-6.10) Hemoglobin 7.6 G/DL (14.2-18.0) Hematocrit 23.8 % (42.0-52.0) Mean Corpuscular Volume 94 FL (80-99) Mean Corpuscular Hemoglobin 30.1 PG (27.0-31.0) Mean Corpuscular Hemoglobin Concent 31.8 G/DL (32.0-36.0) Red Cell Distribution Width 14.6 % (11.6-14.8) Platelet Count 19 K/UL (150-450) Mean Platelet Volume FL (6.5-10.1) Neutrophils (%) (Auto) % (45.0-75.0) Lymphocytes (%) (Auto) % (20.0-45.0) Monocytes (%) (Auto) % (1.0-10.0) Eosinophils (%) (Auto) % (0.0-3.0) Basophils (%) (Auto) % (0.0-2.0) Differential Total Cells Counted 100 Neutrophils % (Manual) 69 % (45-75) Lymphocytes % (Manual) 7 % (20-45) Monocytes % (Manual) 1 % (1-10) Eosinophils % (Manual) 0 % (0-3) Basophils % (Manual) 0 % (0-2) Band Neutrophils 23 % (0-8) Platelet Estimate Decreased Platelet Morphology Normal Hypochromasia 2+ Anisocytosis 1+ Sodium Level 149 MMOL/L (136-145) Potassium Level 5.7 MMOL/L (3.5-5.1) Chloride Level 116 MMOL/L (98-107) Carbon Dioxide Level 20 MMOL/L (21-32) Anion Gap 13 mmol/L (5-15) Blood Urea Nitrogen 121 mg/dL (7-18) Creatinine 3.2 MG/DL (0.55-1.30) Estimat Glomerular Filtration Rate 20.6 mL/min (>60) Glucose Level 61 MG/DL (74-106) Uric Acid 5.8 MG/DL (2.6-7.2) Calcium Level 8.2 MG/DL (8.5-10.1) Phosphorus Level 5.9 MG/DL (2.5-4.9) Magnesium Level 2.1 MG/DL (1.8-2.4) Total Bilirubin 0.4 MG/DL (0.2-1.0) Aspartate Amino Transf (AST/SGOT) 59 U/L (15-37) Alanine Aminotransferase (ALT/SGPT) 50 U/L (12-78) Alkaline Phosphatase 97 U/L (46-116) Troponin I 0.114 ng/mL (0.000-0.056) C-Reactive Protein, Quantitative 56.3 mg/dL (0.00-0.90) Pro-B-Type Natriuretic Peptide 57287 pg/mL (0-125) Total Protein 5.0 G/DL (6.4-8.2) Albumin 0.8 G/DL (3.4-5.0) Globulin 4.2 g/dL Albumin/Globulin Ratio 0.2 (1.0-2.7) Test 07/23/20 05:43 07/23/20 11:37 07/23/20 16:08 07/24/20 03:50 POC Whole Blood Glucose 56 MG/DL (74-106) 71 MG/DL (74-106) 167 MG/DL (74-106) White Blood Count 10.9 K/UL (4.8-10.8) Red Blood Count 2.56 M/UL (4.70-6.10) Hemoglobin 8.1 G/DL (14.2-18.0) Hematocrit 25.1 % (42.0-52.0) Mean Corpuscular Volume 98 FL (80-99) Mean Corpuscular Hemoglobin 31.5 PG (27.0-31.0) Mean Corpuscular Hemoglobin Concent 32.1 G/DL (32.0-36.0) Red Cell Distribution Width 16.3 % (11.6-14.8) Platelet Count 23 K/UL (150-450) Mean Platelet Volume 11.3 FL (6.5-10.1) Neutrophils (%) (Auto) % (45.0-75.0) Lymphocytes (%) (Auto) % (20.0-45.0) Monocytes (%) (Auto) % (1.0-10.0) Eosinophils (%) (Auto) % (0.0-3.0) Basophils (%) (Auto) % (0.0-2.0) Sodium Level 144 MMOL/L (136-145) Potassium Level 6.5 MMOL/L (3.5-5.1) Chloride Level 113 MMOL/L (98-107) Carbon Dioxide Level 18 MMOL/L (21-32) Anion Gap 13 mmol/L (5-15) Blood Urea Nitrogen 119 mg/dL (7-18) Creatinine 3.7 MG/DL (0.55-1.30) Estimat Glomerular Filtration Rate 17.4 mL/min (>60) Glucose Level 116 MG/DL (74-106) Uric Acid 6.5 MG/DL (2.6-7.2) Calcium Level 7.7 MG/DL (8.5-10.1) Phosphorus Level 7.7 MG/DL (2.5-4.9) Magnesium Level 2.2 MG/DL (1.8-2.4) Total Bilirubin 0.5 MG/DL (0.2-1.0) Aspartate Amino Transf (AST/SGOT) 37 U/L (15-37) Alanine Aminotransferase (ALT/SGPT) 35 U/L (12-78) Alkaline Phosphatase 108 U/L (46-116) C-Reactive Protein, Quantitative 40.0 mg/dL (0.00-0.90) Pro-B-Type Natriuretic Peptide 28062 pg/mL (0-125) Total Protein 5.1 G/DL (6.4-8.2) Albumin 1.1 G/DL (3.4-5.0) Globulin 4.0 g/dL Albumin/Globulin Ratio 0.3 (1.0-2.7) Height (Feet): 5 Height (Inches): 4.00 Weight (Pounds): 146 Objective Sp02 EP Interpretation: reviewed General Appearance: alert, severe distress +++ogt Head: normocephalic ENT: moist mucus membranes Neck: supple, no meningismus Respiratory: no wheezing, respiratory distress +++vent Cardiovascular: no edema, tachycardia Gastrointestinal: normal inspection, normal bowel sounds, non tender, no mass, non-distended Musculoskeletal: back normal, normal range of motion, gait/station normal Neurologic: alert, oriented x3 Aleksander Doe MD Jul 24, 2020 07:39
--- NOTE | 2020-07-24 08:42 | NUR ---
NURSE NOTES: Dr. Yap called back, he is already aware of abnormal K+ level, Kayexalate ordered, not much else can be done for patient at this time. BP is low. Patient's breath sounds and respiratory effort irregular, this RN observed audible gurgling and patient fighting the ventilator. Patient hyperoxygenated and suctioned at bedside, secretions blood-tinged and thick. This RN called RT to the bedside for further assessment, patient's O2 sats remained in the mid70s to low 80s. Will con't to monitor.
[2020-07-24] MEDS: Enoxaparin 60mg Inj SUBQ SCH (09:00)
[2020-07-24] MEDS ORDERED: Sodium Polystyrene Sulfonate 15gm Powder NG SCH (09:00)
[2020-07-24] MEDS: Solu-MEDROL 40mg Inj IVP SCH (09:33)
[2020-07-24] MEDS: Pantoprazole Inj IVP SCH (09:33)
[2020-07-24] MEDS: Dextrose 10%/.45 SOD CHL 1,000 ML IV SCH ×2 (09:38)
--- NOTE | 2020-07-24 10:08 | Pulmonology Progress Note ---
Subjective ROS Limited/Unobtainable: Yes Interval Events: Became hypoxic; coded; now intubated as of 07/19/20 Constitutional: Reports: fever, other - [id number] HEENT: Repors: no symptoms Respiratory: Reports: no symptoms Cardiovascular: Reports: no symptoms Gastrointestinal/Abdominal: Reports: no symptoms Allergies: Coded Allergies: No Known Allergies (Unverified , 06/18/20) All Systems: reviewed and negative except above Objective Last 24 Hour Vital Signs Date Time Temp Pulse Resp B/P (MAP) Pulse Ox O2 Delivery O2 Flow Rate FiO2 07/24/20 06:00 103 25 102/38 (59) 92 07/24/20 04:00 100 07/24/20 04:00 103 07/24/20 04:00 Mechanical Ventilator 07/24/20 04:00 103 25 94/45 (61) 95 07/24/20 03:43 103 25 100 07/24/20 03:00 102 25 98/45 (62) 95 07/24/20 02:45 102 24 100/46 (64) 95 07/24/20 02:30 102 25 103/44 (63) 95 07/24/20 02:15 102 24 102/45 (64) 94 07/24/20 02:00 102 25 100/46 (64) 94 07/24/20 01:45 102 25 101/46 (64) 94 07/24/20 01:30 102 25 104/50 (68) 94 07/24/20 01:15 102 25 103/51 (68) 93 07/24/20 01:00 101 24 105/43 (63) 92 07/24/20 00:00 98.6 102 25 102/48 (66) 96 07/24/20 00:00 90 07/24/20 00:00 Mechanical Ventilator 07/23/20 23:39 101 25 100 07/23/20 23:00 101 25 115/50 (71) 92 07/23/20 22:00 97.9 100 25 101/54 (70) 93 07/23/20 21:00 98.2 86 25 107/46 (66) 97 07/23/20 21:00 91 07/23/20 20:00 Mechanical Ventilator 07/23/20 20:00 25 115/55 Endotracheal Tube 100 07/23/20 20:00 97.6 94 25 109/50 (69) 97 07/23/20 19:58 95 25 100 07/23/20 19:00 25 114/49 Mechanical Ventilator 100 07/23/20 19:00 114/49 07/23/20 19:00 97.6 94 25 114/49 (70) 97 07/23/20 18:00 25 114/54 Mechanical Ventilator 100 07/23/20 18:00 114/54 07/23/20 18:00 92 25 117/42 (67) 97 07/23/20 17:00 25 103/42 Mechanical Ventilator 100 07/23/20 17:00 118/52 07/23/20 17:00 93 25 103/42 (62) 98 07/23/20 16:00 100 07/23/20 16:00 Mechanical Ventilator 07/23/20 16:00 97.5 94 25 113/45 (67) 98 07/23/20 16:00 26 113/45 Mechanical Ventilator 100 07/23/20 16:00 113/45 07/23/20 16:00 92 07/23/20 15:18 94 29 100 07/23/20 15:00 94 26 113/40 (64) 99 07/23/20 15:00 27 113/40 Mechanical Ventilator 100 07/23/20 15:00 113/40 07/23/20 14:30 93 26 114/43 (66) 99 07/23/20 14:00 94 27 126/43 (70) 98 07/23/20 14:00 26 117/53 Mechanical Ventilator 100 07/23/20 14:00 117/53 07/23/20 13:30 92 25 125/60 (81) 97 07/23/20 13:00 93 23 119/54 (75) 98 07/23/20 13:00 26 120/63 Mechanical Ventilator 100 07/23/20 13:00 120/63 07/23/20 12:30 93 26 124/59 (80) 98 07/23/20 12:00 25 118/59 Mechanical Ventilator 100 07/23/20 12:00 118/59 07/23/20 12:00 97.5 92 25 119/56 (77) 98 07/23/20 12:00 Mechanical Ventilator 07/23/20 12:00 100 07/23/20 12:00 94 07/23/20 11:30 94 24 123/60 (81) 98 07/23/20 11:27 94 29 100 07/23/20 11:00 30 121/56 Mechanical Ventilator 100 07/23/20 11:00 121/56 07/23/20 11:00 94 27 121/56 (77) 98 07/23/20 10:56 30 121/56 Mechanical Ventilator 100 07/23/20 10:41 32 121/56 Mechanical Ventilator 100 07/23/20 10:30 94 29 121/58 (79) 97 07/23/20 10:26 32 124/63 Mechanical Ventilator 100 07/23/20 10:15 97.6 93 30 124/63 (83) 97 07/23/20 10:11 32 122/61 Mechanical Ventilator 100 Intake and Output 0 07/23/20 07/24/20 19:00 07:00 Intake Total 2183.21 ml 1560 ml Output Total 420 ml 165 ml Balance 1763.21 ml 1395 ml IV Total 1703.21 ml 1560 ml Other 480 ml Output Urine Total 420 ml 165 ml General Appearance: no acute distress HEENT: normocephalic Respiratory: chest wall non-tender, lungs clear Cardiovascular: normal peripheral pulses Abdomen: normal bowel sounds Extremities: no cyanosis Microbiology Date/Time Source Procedure Growth Status 07/22/20 03:15 Indwelling Cath Urine Culture - Preliminary NO GROWTH Resulted 07/22/20 03:15 Sputum Induced Gram Stain - Final Complete 07/22/20 03:15 Sputum Culture - Final Klebsiella Pneumoniae Complete 07/21/20 15:50 Blood Blood Culture - Final Enterococcus Faecalis Complete Laboratory Tests 07/23/20 11:37: POC Whole Blood Glucose 71L 07/23/20 16:08: POC Whole Blood Glucose 167H 07/24/20 03:50: White Blood Count 10.9H, Red Blood Count 2.56L, Hemoglobin 8.1L, Hematocrit 25.1L, Mean Corpuscular Volume 98, Mean Corpuscular Hemoglobin 31.5H, Mean Corpuscular Hemoglobin Concent 32.1, Red Cell Distribution Width 16.3H, Platelet Count 23L, Mean Platelet Volume 11.3H, Neutrophils (%) (Auto) , Lymphocytes (%) (Auto) , Monocytes (%) (Auto) , Eosinophils (%) (Auto) , Basophils (%) (Auto) , Differential Total Cells Counted 100, Neutrophils % (Manual) 82H, Lymphocytes % (Manual) 4L, Monocytes % (Manual) 2, Eosinophils % (Manual) 0, Basophils % (Manual) 0, Band Neutrophils 12H, Platelet Estimate DecreasedL, Platelet Morphology , Giant Platelets Occasional, Hypochromasia 1+, Anisocytosis 1+, Sodium Level 144, Potassium Level 6.5*H, Chloride Level 113H, Carbon Dioxide Level 18L, Anion Gap 13, Blood Urea Nitrogen 119H, Creatinine 3.7H, Estimat Glomerular Filtration Rate 17.4, Glucose Level 116H, Uric Acid 6.5, Calcium Level 7.7L, Phosphorus Level 7.7H, Magnesium Level 2.2, Total Bilirubin 0.5, Aspartate Amino Transf (AST/SGOT) 37, Alanine Aminotransferase (ALT/SGPT) 35, Alkaline Phosphatase 108, C-Reactive Protein, Quantitative 40.0H, Pro-B-Type Natriuretic Peptide 00167Y, Total Protein 5.1L, Albumin 1.1L, Globulin 4.0, Albumin/Globulin Ratio 0.3L Current Medications Medications (Trade) Dose Ordered Sig/Yoselin Route PRN Reason Start Time Stop Time Status Last Admin Dose Admin Acetaminophen (Tylenol) 650 mg Q6H PRN ORAL For Pain 07/17/20 15:24 08/16/20 15:23 Acetaminophen (Tylenol) 650 mg Q6H PRN ORAL Temp >100.5 07/03/20 16:30 08/02/20 16:29 07/22/20 14:31 Acetaminophen (Tylenol) 650 mg Q6H PRN RECTAL Temp >100.5 07/04/20 20:45 08/03/20 20:44 07/19/20 20:24 Ceftriaxone Sodium 1 gm/ Dextrose 55 ml @ 110 mls/hr Q24H IVPB 07/21/20 11:00 07/28/20 10:59 07/23/20 10:29 Chlorhexidine Gluconate (Kalie-Hex 2%) 1 applic DAILY@2000 TOPIC 07/13/20 20:00 10/11/20 19:59 07/23/20 21:00 Dextrose (Dextrose 50%) 25 ml Q30M PRN IV Hypoglycemia 07/11/20 12:15 10/09/20 12:14 Dextrose (Dextrose 50%) 50 ml Q30M PRN IV Hypoglycemia 07/11/20 12:15 10/09/20 12:14 Dextrose/Sodium Chloride 1,000 ml @ 100 mls/hr Q10H IV 07/23/20 14:00 08/22/20 13:59 07/24/20 09:38 Enoxaparin Sodium (Lovenox) 60 mg EVERY 12 HOURS SUBQ 07/20/20 21:00 10/18/20 20:59 Fentanyl Citrate 250 ml @ 1 mls/hr Q24H IV 07/22/20 18:45 07/24/20 18:44 07/23/20 08:26 Gentamicin Sulfate (Garamycin 0.3% Opth Soln) 2 drop EVERY 6 HOURS BOTH EYES 07/18/20 11:00 07/25/20 10:59 07/24/20 03:03 Insulin Aspart (NovoLOG) BEFORE MEALS AND HS SUBQ 07/08/20 16:30 10/06/20 16:29 07/23/20 21:00 Linezolid (Zyvox) 600 mg EVERY 12 HOURS NG 07/23/20 09:45 07/28/20 09:44 07/24/20 09:33 Methylprednisolone Sodium Succinate (Solu-MEDROL) 40 mg EVERY 12 HOURS IVP 07/20/20 21:00 10/18/20 20:59 07/24/20 09:33 Morphine Sulfate 30 ml @ 0 mls/hr ADJUST PER PROTOCOL PRN IV For Pain 07/24/20 10:15 07/26/20 10:14 UNV Norepinephrine Bitartrate 8 mg/ Sodium Chloride 500 ml @ 0 mls/hr Q24H PRN IV . 07/22/20 17:00 07/25/20 16:59 07/23/20 17:00 Ondansetron HCl (Zofran) 4 mg Q6H PRN IVP Nausea & Vomiting 07/17/20 16:00 08/16/20 15:59 Pantoprazole (Protonix) 40 mg EVERY 12 HOURS IVP 07/22/20 21:00 08/21/20 20:59 07/24/20 09:33 Sodium Polystyrene Sulfonate (Kayexalate) 45 gm BID NG 07/24/20 09:00 07/28/20 08:59 07/24/20 09:33 Assessment/Plan Assessment/Plan 1. COVID-19 pneumonia. - s/p decadron (06/22-06/28) - s/p broad-spectrum antibiotics - s/p remdesivir - CXR 06/26 better - CXR 07/12 no significant change - on Solu-Medrol (07/13-) - Has RUL collapse; will intensify pulmonary hygiene - Cannot bronch... high risk 2. Respiratory failure. - desaturated on 50%; coded on 07/19/20 - intubated - On AC; FiO2 100% 3. Pulmonary embolism. - s/p heparin - Back on Lovenox as he cannot tolerate PO meds - D-Dimer 07/16 1.34 4. Troponin leak. - 2D echo showed LV EF 65% 5. Malnutrition - s/p PICC line and TPN (07/13) 6. Leukocytosis -ID following 7. Toe discoloration; now has gangrene left LE upto knee - suspect HIT -noted hematology eval Discussed with Poor prognosis DNR Survival unlikely and imminent Will terminally extubate and start Gurdeep Stephens MD Jul 24, 2020 10:08
[2020-07-24] MEDS ORDERED: PCA Morphine 1mg/ml 30 ML IV PRN (10:15)
[2020-07-24] MEDS ORDERED: Rate Change Narcotic Drip MISC PRN (10:30)
--- NOTE | 2020-07-24 10:35 | NUR ---
NURSE NOTES: Per provider's order, patient was terminally extubated and placed on 2L NC. Patient observed agonally breathing, VS declining. Provider spoke with the family and they are aware of his poor prognosis and agreeable with comfort measures. Patient to be started on Morphine REPAIR CAMERAMAN, all current life supporting infusions stopped at this time. Will con't to monitor.
--- NOTE | 2020-07-24 10:35 | NUR ---
RESPIRATORY NOTE: PER MD PT was terminally extubated and placed on 2Lpm N/C. Pt at 1041.
--- NOTE | 2020-07-24 10:41 | NUR ---
NURSE NOTES: Patient is asystole on the monitor. This RN performed final assessment at bedside: no heart sounds auscultated, no breath sounds auscultated, cap refill is >3 secs, pupils are nonreactive, final breath taken. Awaiting charge nurse's assessment for pronouncement of .
--- NOTE | 2020-07-24 10:45 | Nephrology Progress Note ---
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 I was called for today's labs this morning with high potassium. Patient DNR/DNI. Kayexalate ordered. Later discussed with the family and family agreed with terminal extubation due to multiple med ical problem, gangrenous lower extremity, and futile treatment. Patient shortly after extubation. July 23: Patient blood pressure better controlled. Clinically doing poorly. Serum creatinine elevated. Blood sugar low. Will change IV to D10 half-normal saline. Kayexalate for high potassium. Patient DNR/DNI. No dialysis is being offered at this time. Discussed with Re AGUIRRE. July 22: Patient hypotensive, tachycardic, on pressors, high inflammatory markers. TPN stopped. Labs reviewed. Serum creatinine glenroy. Maintenance IV started. Patient DNR. No dialysis is suggested. Continue current management.Eric July 21: Patient remains in ICU. Full code. On TPN. Labs reviewed. Electrolytes and renal parameters stable. Continue TPN as is. Discussed with pharmacy. July 20: Remains in ICU, full code, intubated, on ventilator. On TPN. Labs reviewed. Serum creatinine and serum phosphorus rising. Adjustment done with pharmacy regarding TPN. Continue to monitor renal parameters. July 19: Now in ICU and intubated. Labs reviewed. Able from renal standpoint of view and on TPN. Continue per pulmonary and ID. July 18: Remains on TPN. Full code. Labs reviewed. Discussed with pharmacy. Continue as is. July 17: Remains on TPN. Labs reviewed. Discussed with pharmacy. Continue as is. July 16: Remains on TPN. Labs reviewed. Sodium slightly elevated. Levemir dose increased for better blood sugar control. Discussed with pharmacy. Continue to monitor electrolytes. July 15: On TPN. Labs reviewed. Continue TPN as is. Adjust insulin for blood sugar control. Per orders. July 14: Patient started on TPN since last night. We will continue to monitor electrolytes and renal parameters and adjust TPN composition as needed. Discussed with pharmacy. July 13: Due for PICC line today and initiation of TPN. Low magnesium addressed. Continue per current management. July 12: Remains full code. Remains on BiPAP. Labs reviewed. Low potassium and phosphorus addressed. Awaiting initiation of TPN. Subjective ROS Limited/Unobtainable: Yes Objective Objective Last 24 Hour Vital Signs Date Time Temp Pulse Resp B/P (MAP) Pulse Ox O2 Delivery O2 Flow Rate FiO2 07/24/20 06:00 103 25 102/38 (59) 92 07/24/20 04:00 100 07/24/20 04:00 103 07/24/20 04:00 Mechanical Ventilator 07/24/20 04:00 103 25 94/45 (61) 95 07/24/20 03:43 103 25 100 07/24/20 03:00 102 25 98/45 (62) 95 07/24/20 02:45 102 24 100/46 (64) 95 07/24/20 02:30 102 25 103/44 (63) 95 07/24/20 02:15 102 24 102/45 (64) 94 07/24/20 02:00 102 25 100/46 (64) 94 07/24/20 01:45 102 25 101/46 (64) 94 07/24/20 01:30 102 25 104/50 (68) 94 07/24/20 01:15 102 25 103/51 (68) 93 07/24/20 01:00 101 24 105/43 (63) 92 07/24/20 00:00 98.6 102 25 102/48 (66) 96 07/24/20 00:00 90 07/24/20 00:00 Mechanical Ventilator 07/23/20 23:39 101 25 100 07/23/20 23:00 101 25 115/50 (71) 92 07/23/20 22:00 97.9 100 25 101/54 (70) 93 07/23/20 21:00 98.2 86 25 107/46 (66) 97 07/23/20 21:00 91 07/23/20 20:00 Mechanical Ventilator 07/23/20 20:00 25 115/55 Endotracheal Tube 100 07/23/20 20:00 97.6 94 25 109/50 (69) 97 07/23/20 19:58 95 25 100 07/23/20 19:00 25 114/49 Mechanical Ventilator 100 07/23/20 19:00 114/49 07/23/20 19:00 97.6 94 25 114/49 (70) 97 07/23/20 18:00 25 114/54 Mechanical Ventilator 100 07/23/20 18:00 114/54 07/23/20 18:00 92 25 117/42 (67) 97 07/23/20 17:00 25 103/42 Mechanical Ventilator 100 07/23/20 17:00 118/52 07/23/20 17:00 93 25 103/42 (62) 98 07/23/20 16:00 100 07/23/20 16:00 Mechanical Ventilator 07/23/20 16:00 97.5 94 25 113/45 (67) 98 07/23/20 16:00 26 113/45 Mechanical Ventilator 100 07/23/20 16:00 113/45 07/23/20 16:00 92 07/23/20 15:18 94 29 100 07/23/20 15:00 94 26 113/40 (64) 99 07/23/20 15:00 27 113/40 Mechanical Ventilator 100 07/23/20 15:00 113/40 07/23/20 14:30 93 26 114/43 (66) 99 07/23/20 14:00 94 27 126/43 (70) 98 07/23/20 14:00 26 117/53 Mechanical Ventilator 100 07/23/20 14:00 117/53 07/23/20 13:30 92 25 125/60 (81) 97 07/23/20 13:00 93 23 119/54 (75) 98 07/23/20 13:00 26 120/63 Mechanical Ventilator 100 07/23/20 13:00 120/63 07/23/20 12:30 93 26 124/59 (80) 98 07/23/20 12:00 25 118/59 Mechanical Ventilator 100 07/23/20 12:00 118/59 07/23/20 12:00 97.5 92 25 119/56 (77) 98 07/23/20 12:00 Mechanical Ventilator 07/23/20 12:00 100 07/23/20 12:00 94 07/23/20 11:30 94 24 123/60 (81) 98 07/23/20 11:27 94 29 100 07/23/20 11:00 30 121/56 Mechanical Ventilator 100 07/23/20 11:00 121/56 07/23/20 11:00 94 27 121/56 (77) 98 07/23/20 10:56 30 121/56 Mechanical Ventilator 100 Intake and Output 07/23/20 07/24/20 19:00 07:00 Intake Total 2183.21 ml 1560 ml Output Total 420 ml 165 ml Balance 1763.21 ml 1395 ml IV Total 1703.21 ml 1560 ml Other 480 ml Output Urine Total 420 ml 165 ml Current Medications Medications (Trade) Dose Ordered Sig/Yoselin Route PRN Reason Start Time Stop Time Status Last Admin Dose Admin Acetaminophen (Tylenol) 650 mg Q6H PRN ORAL For Pain 07/17/20 15:24 08/16/20 15:23 Acetaminophen (Tylenol) 650 mg Q6H PRN ORAL Temp >100.5 07/03/20 16:30 08/02/20 16:29 07/22/20 14:31 Acetaminophen (Tylenol) 650 mg Q6H PRN RECTAL Temp >100.5 07/04/20 20:45 08/03/20 20:44 07/19/20 20:24 Chlorhexidine Gluconate (Kalie-Hex 2%) 1 applic DAILY@2000 TOPIC 07/13/20 20:00 10/11/20 19:59 07/23/20 21:00 Dextrose (Dextrose 50%) 25 ml Q30M PRN IV Hypoglycemia 07/11/20 12:15 10/09/20 12:14 Dextrose (Dextrose 50%) 50 ml Q30M PRN IV Hypoglycemia 07/11/20 12:15 10/09/20 12:14 Dextrose/Sodium Chloride 1,000 ml @ 100 mls/hr Q10H IV 07/23/20 14:00 08/22/20 13:59 07/24/20 09:38 Enoxaparin Sodium (Lovenox) 60 mg EVERY 12 HOURS SUBQ 07/20/20 21:00 10/18/20 20:59 Fentanyl Citrate 250 ml @ 1 mls/hr Q24H IV 07/22/20 18:45 07/24/20 18:44 07/23/20 08:26 Gentamicin Sulfate (Garamycin 0.3% Opth Soln) 2 drop EVERY 6 HOURS BOTH EYES 07/18/20 11:00 07/25/20 10:59 07/24/20 03:03 Insulin Aspart (NovoLOG) BEFORE MEALS AND HS SUBQ 07/08/20 16:30 10/06/20 16:29 07/23/20 21:00 Methylprednisolone Sodium Succinate (Solu-MEDROL) 40 mg EVERY 12 HOURS IVP 07/20/20 21:00 10/18/20 20:59 07/24/20 09:33 Miscellaneous Medication (Narcotic Drip Rate Change) 1 ea DAILY PRN MISC . 07/24/20 10:30 08/23/20 10:29 Miscellaneous Medication (Narcotic Shift Volume) 1 ea Q8HR@07,15, MISC 07/24/20 15:00 08/23/20 14:59 Morphine Sulfate 30 ml @ 0 mls/hr ADJUST PER PROTOCOL PRN IV For Pain 07/24/20 10:15 07/26/20 10:14 Norepinephrine Bitartrate 8 mg/ Sodium Chloride 500 ml @ 0 mls/hr Q24H PRN IV . 07/22/20 17:00 07/25/20 16:59 07/23/20 17:00 Ondansetron HCl (Zofran) 4 mg Q6H PRN IVP Nausea & Vomiting 07/17/20 16:00 08/16/20 15:59 Pantoprazole (Protonix) 40 mg EVERY 12 HOURS IVP 07/22/20 21:00 08/21/20 20:59 07/24/20 09:33 Sodium Polystyrene Sulfonate (Kayexalate) 45 gm BID NG 07/24/20 09:00 07/28/20 08:59 07/24/20 09:33 Laboratory Tests 07/23/20 11:37: POC Whole Blood Glucose 71L 07/23/20 16:08: POC Whole Blood Glucose 167H 07/24/20 03:50: White Blood Count 10.9H, Red Blood Count 2.56L, Hemoglobin 8.1L, Hematocrit 25.1L, Mean Corpuscular Volume 98, Mean Corpuscular Hemoglobin 31.5H, Mean Corpuscular Hemoglobin Concent 32.1, Red Cell Distribution Width 16.3H, Platelet Count 23L, Mean Platelet Volume 11.3H, Neutrophils (%) (Auto) , Lymphocytes (%) (Auto) , Monocytes (%) (Auto) , Eosinophils (%) (Auto) , Basophils (%) (Auto) , Differential Total Cells Counted 100, Neutrophils % (Manual) 82H, Lymphocytes % (Manual) 4L, Monocytes % (Manual) 2, Eosinophils % (Manual) 0, Basophils % (Manual) 0, Band Neutrophils 12H, Platelet Estimate DecreasedL, Platelet Morphology , Giant Platelets Occasional, Hypochromasia 1+, Anisocytosis 1+, Sodium Level 144, Potassium Level 6.5*H, Chloride Level 113H, Carbon Dioxide Level 18L, Anion Gap 13, Blood Urea Nitrogen 119H, Creatinine 3.7H, Estimat Glomerular Filtration Rate 17.4, Glucose Level 116H, Uric Acid 6.5, Calcium Level 7.7L, Phosphorus Level 7.7H, Magnesium Level 2.2, Total Bilirubin 0.5, Aspartate Amino Transf (AST/SGOT) 37, Alanine Aminotransferase (ALT/SGPT) 35, Alkaline Phosphatase 108, C-Reactive Protein, Quantitative 40.0H, Pro-B-Type Natriuretic Peptide 53928D, Total Protein 5.1L, Albumin 1.1L, Globulin 4.0, Albumin/Globulin Ratio 0.3L Height (Feet): 5 Height (Inches): 4.00 Weight (Pounds): 146 General Appearance: other - No vital signs Jimmy Saul MD Jul 24, 2020 10:45
--- NOTE | 2020-07-24 11:36 | NUR ---
PRONOUNCEMENT: No Code. Called to pronounce patient. Absence of spontaneous respirations, no cardiac or breath sounds on auscultation. Pupils fixed and dilated. No carotid pulse or chest movement. Patient at 1100. DR Reyes notified PER Kimmy Rivers RN at 1140. Family was notified at 1100 and came to the unit at 1135 to see the remains.
[2020-07-24] MEDS ORDERED: Narcotic Shift Volume MISC SCH (15:00)
--- NOTE | 2020-07-24 15:23 | NUR ---
CASE MANAGEMENT:REVIEW 07/24/20 PATIENT PRONOUNCED @[id number]
--- NOTE | 2020-07-24 17:07 | NUR ---
insurance CLINCALS AND REVIEW FAXED TO [facility] T: [phone] F: [phone]
--- NOTE | 2020-07-25 02:26 | Cardiology Progress Note ---
Subjective DATE OF SERVICE: Jul 24, 2020 Worsening cardiovascular parameters due to hypotension, and cont'd hypoxia on 100% FIO2. Remains on pressors having marginal BP readings, with episodes of AFib and RVR. Remains in ICU on full vent support; s/p code blue due to hypoxia and seizure on 07/19. Left foot cold and bluish toe #3 - arterial duplex 07/17 without proximal obstruction. 2D Echo - normal LVEF, no signs RV strain, normal PA pressure of 30mm Hg CXR (07/20) persisting ALMA infiltrate and improved right basilar infiltrate. Objective Last 24 Hour Vital Signs Date Time Temp Pulse Resp B/P (MAP) Pulse Ox O2 Delivery O2 Flow Rate FiO2 07/24/20 10:41 Nasal Cannula 2.0 07/24/20 10:41 0 07/24/20 10:39 47 07/24/20 10:37 40 07/24/20 10:35 28 07/24/20 10:35 Nasal Cannula 2.0 28 07/24/20 10:30 101 26 100 07/24/20 10:00 Mechanical Ventilator 07/24/20 10:00 99.5 100 25 96/36 (56) 74 07/24/20 09:00 99.5 102 25 96/35 (55) 80 07/24/20 08:00 Mechanical Ventilator 07/24/20 08:00 99.5 102 25 93/37 (55) 89 07/24/20 07:41 102 07/24/20 07:20 101 29 100 07/24/20 07:00 99.5 102 25 97/35 (55) 90 07/24/20 06:00 103 25 102/38 (59) 92 07/24/20 04:00 100 07/24/20 04:00 103 07/24/20 04:00 Mechanical Ventilator 07/24/20 04:00 103 25 94/45 (61) 95 07/24/20 03:43 103 25 100 07/24/20 03:00 102 25 98/45 (62) 95 07/24/20 02:45 102 24 100/46 (64) 95 07/24/20 02:30 102 25 103/44 (63) 95 ROS: unchanged from 06/19/20 HEENT: Mechanically Ventilated, Thin secretions ET Tube, other - bipap RHYTHM: ST, Afib LUNGS: bilat. rhonchi and rales CARDIAC: normal rate, regular rhythm, normal S1 and S2 ABDOMEN: normal bowel sounds, soft, distended EXTREMITIES: normal range of motion, non-tender, trace edema, other - left toes 1,2,3 with gangrenous changes - especially evident in 3rd toe. Laboratory Tests Test 07/24/20 03:50 White Blood Count 10.9 K/UL (4.8-10.8) H Red Blood Count 2.56 M/UL (4.70-6.10) L Hemoglobin 8.1 G/DL (14.2-18.0) L Hematocrit 25.1 % (42.0-52.0) L Mean Corpuscular Volume 98 FL (80-99) Mean Corpuscular Hemoglobin 31.5 PG (27.0-31.0) H Mean Corpuscular Hemoglobin Concent 32.1 G/DL (32.0-36.0) Red Cell Distribution Width 16.3 % (11.6-14.8) H Platelet Count 23 K/UL (150-450) L Mean Platelet Volume 11.3 FL (6.5-10.1) H Neutrophils (%) (Auto) % (45.0-75.0) Lymphocytes (%) (Auto) % (20.0-45.0) Monocytes (%) (Auto) % (1.0-10.0) Eosinophils (%) (Auto) % (0.0-3.0) Basophils (%) (Auto) % (0.0-2.0) Differential Total Cells Counted 100 Neutrophils % (Manual) 82 % (45-75) H Lymphocytes % (Manual) 4 % (20-45) L Monocytes % (Manual) 2 % (1-10) Eosinophils % (Manual) 0 % (0-3) Basophils % (Manual) 0 % (0-2) Band Neutrophils 12 % (0-8) H Platelet Estimate Decreased L Platelet Morphology Giant Platelets Occasional Hypochromasia 1+ Anisocytosis 1+ Sodium Level 144 MMOL/L (136-145) Potassium Level 6.5 MMOL/L (3.5-5.1) *H Chloride Level 113 MMOL/L (98-107) H Carbon Dioxide Level 18 MMOL/L (21-32) L Anion Gap 13 mmol/L (5-15) Blood Urea Nitrogen 119 mg/dL (7-18) H Creatinine 3.7 MG/DL (0.55-1.30) H Estimat Glomerular Filtration Rate 17.4 mL/min (>60) Glucose Level 116 MG/DL (74-106) H Uric Acid 6.5 MG/DL (2.6-7.2) Calcium Level 7.7 MG/DL (8.5-10.1) L Phosphorus Level 7.7 MG/DL (2.5-4.9) H Magnesium Level 2.2 MG/DL (1.8-2.4) Total Bilirubin 0.5 MG/DL (0.2-1.0) Aspartate Amino Transf (AST/SGOT) 37 U/L (15-37) Alanine Aminotransferase (ALT/SGPT) 35 U/L (12-78) Alkaline Phosphatase 108 U/L (46-116) C-Reactive Protein, Quantitative 40.0 mg/dL (0.00-0.90) H Pro-B-Type Natriuretic Peptide 38485 pg/mL (0-125) H Total Protein 5.1 G/DL (6.4-8.2) L Albumin 1.1 G/DL (3.4-5.0) L Globulin 4.0 g/dL Albumin/Globulin Ratio 0.3 (1.0-2.7) L Microbiology Date/Time Source Procedure Growth Status 07/22/20 03:15 Indwelling Cath Urine Culture - Preliminary NO GROWTH Resulted 07/22/20 03:15 Sputum Induced Gram Stain - Final Complete 07/22/20 03:15 Sputum Culture - Final Klebsiella Pneumoniae Complete Assessment/Plan Assessment/Plan Shock Acute respiratory failure HC associated PNA COVID 19 PNA Hypoxia Ac pulmonary embolism Acute coronary syndrome/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 Sinus tachycardia Left LE ischemia Dehydration/hypernatremia Paroxysmal AFib with RVR Remains Critical and Guarded Continue pressor support. Vent support Free water replacement Full anticoagulation Antimicrobials Monitor for sustained atrial arrhythmias Replace lytes as needed Insulin cov'g by SS IV cardizem for rate control All discussed with ICU staff Aden Mejias MD Jul 25, 2020 02:26
== END 2020-07-24 14:25 | disposition expired | DRG 720 ==
LOC: EMR 15:47 → EDBEDREQ 17:31 → ICU 20:09 → EDBEDREQ 20:21 → 2W 06-26 09:11 → ICU 07-19 09:00
PROC: XW033E5 Introduction of Remdesivir Anti-infective into Peripheral Vein, Percutaneous Approach, New Technology Group 5 (ICD-10-PCS; 2020-06-19)
PROC: 02HV33Z Insertion of Infusion Device into Superior Vena Cava, Percutaneous Approach (ICD-10-PCS; 2020-07-13)
PROC: B548ZZA Ultrasonography of Superior Vena Cava, Guidance (ICD-10-PCS; 2020-07-13)
PROC: 0BH17EZ Insertion of Endotracheal Airway into Trachea, Via Natural or Artificial Opening (ICD-10-PCS; principal; 2020-07-19)
PROC: 5A1955Z Respiratory Ventilation, Greater than 96 Consecutive Hours (ICD-10-PCS; principal; 2020-07-19)
DX: A41.9 Sepsis, unspecified organism (principal); I21.4 Non-ST elevation (NSTEMI) myocardial infarction; U07.1 COVID-19; I26.09 Other pulmonary embolism with acute cor pulmonale; E43 Unspecified severe protein-calorie malnutrition; J12.82 Pneumonia due to coronavirus disease 2019; J96.01 Acute respiratory failure with hypoxia; R19.7 Diarrhea, unspecified; D75.82 Heparin induced thrombocytopenia (HIT); Z68.23 Body mass index [BMI] 23.0-23.9, adult; E09.9 Drug or chemical induced diabetes mellitus without complications; T38.0X5A Adverse effect of glucocorticoids and synthetic analogues, initial encounter; Y92.230 Patient room in hospital as the place of occurrence of the external cause; I50.31 Acute diastolic (congestive) heart failure; D64.9 Anemia, unspecified; R13.10 Dysphagia, unspecified; E87.0 Hyperosmolality and hypernatremia; E86.0 Dehydration; I48.0 Paroxysmal atrial fibrillation; E11.52 Type 2 diabetes mellitus with diabetic peripheral angiopathy with gangrene; I96 Gangrene, not elsewhere classified
CPT/HCPCS: 36415; 36569; 71045; 71275; 74018; 76937; 80048; 80053; 80061; 81001; 81003; 82248; 82306; 82550; 82607; 82728; 82746; 82803; 82962; 82977; 83010; 83036; 83605; 83615; 83690; 83735; 83880; 84100; 84443; 84478; 84484; 84550; 85007; 85025; 85060; 85379; 85610; 85730; 86140; 86850; 86900; 86901; 86920; 87040; 87070; 87081; 87086; 87181; 87205; 92950; 93005; 93306; 93925; 93970; 94002; 94003; 94660; 96361; 96365; 96367; 96375; 99291; 99292; J1815; J3490; J7030; J8499; S5561; U0002